=== PATIENT | female | born 1940 | race Caucasian/White ===

== ENCOUNTER 2016-03-08 18:58 | Inpatient (IN) | payer OTHER ==
[2016-03-08] MEDS ORDERED: ACETAMINOPHEN 325 MG TABLET (FP) PO ONE (19:31)
[2016-03-08 19:55] LABS: MCHC 32.1 g/dl (32.0-36.0); MEAN CELL VOLUME 96.7 fl (80-96); MEAN PLT VOLUME 10.5 fl (7.5-11.1); PLATELET COUNT 114 K/MM3 (134-434); RDW 17.7 % (11.6-15.6); WHITE BLOOD COUNT 4.3 K/mm3 (4.0-10.0)
[2016-03-08] MEDS ORDERED: ACETAMINOPHEN 325 MG TABLET (FP) ONE (20:12)
--- NOTE | 2016-03-08 20:17 | PDOC ---
History of Present Illness - General History Source: Patient, Family Exam Limitations: No Limitations - History of Present Illness Initial Comments: 03/08/16 20:44 The patient is a 75 year old female, with a significant past medical history of HTN, who presents to the emergency department with weakness and lethargy for the past 4 days. The patient is visiting from [place] and is staying with her daughter, who is with her currently in the ED. She is not familiar with her daughters apartment and last Saturday (4 days ago), she tripped and fell down 12 stairs. She was taken to ED at [facility] where daughter states she had a full work up done. The patient had CT scans done (which daughter states were negative), had a forehead lac sutured, and was discharged home. For the past 4 days, the patients daughter reports that she is not really eating, seems weak and is more lethargic than her usual baseline. The patient reports dizziness, lightheadedness, and some reproducible midsternal chest pain. The patient additionally reports constant upper extremity pain since her fall. The patient denies fever, chills, headache, SOB, nausea, vomiting, diarrhea or abdominal pain. Allergies: None reported. Past Surgical History: None reported. Social History: Non smoker. <Concepcion Fraser - Last Filed: 03/09/16 00:33> - General History Source: Patient, Family Exam Limitations: No Limitations <Ady Zhao - Last Filed: 03/14/16 10:08> - General Chief Complaint: Nausea/Vomiting Stated Complaint: NAUSEA/VOMITING Time Seen by Provider: 03/08/16 19:19 Past History <Concepcion Fraser - Last Filed: 03/09/16 00:33> - Psycho/Social/Smoking Cessation Hx Anxiety: No Suicidal Ideation: No Smoking History: Never smoked Have you smoked in the past 12 months: No Information on smoking cessation initiated: No Hx Alcohol Use: No Drug/Substance Use Hx: No Substance Use Type: None <Ady Zhao - Last Filed: 03/14/16 10:08> - Past Medical History Allergies/Adverse Reactions: Allergies Allergy/AdvReac Type Severity Reaction Status Date / Time milk AdvReac Verified 03/09/16 16:16 Milk Containing Products AdvReac Verified 03/09/16 16:16 Home Medications: Ambulatory Orders Amlodipine Besylate [Norvasc -] 5 mg PO DAILY 03/09/16 Review of Systems - Review of Systems Able to Perform ROS?: Yes Comments:: 03/08/16 20:47 GENERAL/CONSTITUTIONAL: +Generalized weakness, lethargy, decreased appetite. No fever or chills. HEAD, EYES, EARS, NOSE AND THROAT: No change in vision. No ear pain or discharge. No sore throat. CARDIOVASCULAR: +Lightheadedness, chest pain. No shortness of breath. RESPIRATORY: No cough, wheezing, or hemoptysis. GASTROINTESTINAL: No nausea, vomiting, diarrhea or constipation. GENITOURINARY: No dysuria, frequency, or change in urination. MUSCULOSKELETAL: +Upper extremity pain. No neck or back pain. SKIN: No rash. NEUROLOGIC: +Dizziness. No headache, vertigo, loss of consciousness, or change in strength/sensation. ENDOCRINE: No increased thirst. No abnormal weight change. HEMATOLOGIC/LYMPHATIC: No anemia, easy bleeding, or history of blood clots. ALLERGIC/IMMUNOLOGIC: No hives or skin allergy. <Concepcion Fraser - Last Filed: 03/09/16 00:33> *Physical Exam - Vital Signs Last Vital Signs Temp Pulse Resp BP Pulse Ox 98.2 F 74 20 128/49 88 L 03/08/16 19:05 03/08/16 19:05 03/08/16 19:05 03/08/16 19:05 03/08/16 19:05 - Physical Exam Comments: 03/08/16 20:49 GENERAL: Awake, alert, and fully oriented, in no acute distress. HEAD: 3cm linear forehead laceration sutured and granulated well. No signs of infection. EYES: Bilateral raccoon eyes. PERRLA, EOMI, sclera anicteric, conjunctiva clear. ENT: Auricles normal inspection, hearing grossly normal, nares patent, oropharynx clear without exudates. Moist mucosa. NECK: Normal ROM, supple, no lymphadenopathy, JVD, or masses. LUNGS: Breath sounds equal, clear to auscultation bilaterally. No wheezes, and no crackles. HEART: Regular rate and rhythm, normal S1 and S2, no murmurs, rubs or gallops. ABDOMEN: Soft, nontender, normoactive bowel sounds. No guarding, no rebound. No masses. EXTREMITIES: Normal range of motion, no edema. No clubbing or cyanosis. No cords , erythema, or tenderness. NEUROLOGICAL: Cranial nerves II through XII grossly intact. Normal speech, normal gait. SKIN: Warm, dry, normal turgor, no rashes or lesions noted. <Concepcion Fraser - Last Filed: 03/09/16 00:33> - Vital Signs Last Vital Signs Temp Pulse Resp BP Pulse Ox 98.2 F 74 20 128/49 88 L 03/08/16 19:05 03/08/16 19:05 03/08/16 19:05 03/08/16 19:05 03/08/16 19:05 <Ady Zhao - Last Filed: 03/14/16 10:08> Heart Score/ECG Review #1 ECG reviewed & interpreted by me at: 21:00 03/09/16 00:40 NSR 78, occasional PAC, Q wave V1, no std/veronica, T wvae flat V5-V6, aVL, QTC 433 msec <Ady Zhao - Last Filed: 03/14/16 10:08> ED Treatment Course - LABORATORY CBC & Chemistry Diagram: 03/08/16 19:15 03/08/16 19:15 - ADDITIONAL ORDERS Additional order review: 03/08/16 19:15 RBC 4.44 MCV 96.7 H MCHC 32.1 RDW 17.7 H MPV 10.5 - Medications Given in the ED: ED Medications Discontinued Medications Generic Name Dose Route Start Last Admin Trade Name Freq PRN Reason Stop Dose Admin Acetaminophen 650 mg 03/08/16 19:31 03/08/16 20:23 Tylenol - PO 03/08/16 19:32 650 mg ONCE ONE Administration <Concepcion Fraser - Last Filed: 03/09/16 00:33> - LABORATORY CBC & Chemistry Diagram: 03/14/16 05:00 03/14/16 05:00 - ADDITIONAL ORDERS Additional order review: 03/08/16 19:15 RBC 4.44 MCV 96.7 H MCHC 32.1 RDW 17.7 H MPV 10.5 - RADIOLOGY Radiology Studies Ordered: Category Date Time Status HEAD CT WITHOUT CONTRAST [CT] Stat CT Scan 03/08/16 19:29 Ordered CHEST X-RAY PORTABLE* [RAD] Stat Radiology 03/08/16 19:29 Taken <Ady Zhao - Last Filed: 03/14/16 10:08> Medical Decision Making - Medical Decision Making 03/08/16 23:16 EXAM: CT/HEAD CT WITHOUT CONTRAST Reviewed By: Dr. Star Wills IMPRESSION: No CT evidence of acute intracranial pathology as discussed. Mild to moderate periventricular chronic microvascular ischemic changes. Right frontal scalp hematoma. EXAM: HEAD CT WITHOUT CONTRAST Reviewed By: Dr. Melchor IMPRESSION: No acute intracranial process. <Concepcion Fraser - Last Filed: 03/09/16 00:33> - Medical Decision Making 03/08/16 20:14 A portion of this note was documented by scribe services under my direction. I have reviewed the details of the note, within reason, and agree with the documentation with the following case summary and management plan written by me. Patient treated in the ED. Nursing notes are reviewed and incorporated into the medical decision-making. Vital signs reviewed. Peripheral IV access obtained by the nurse, laboratory studies are drawn and sent, reviewed and interpreted by myself. Vital Signs Temp Pulse Resp BP Pulse Ox 98.2 F 74 20 128/49 88 L 03/08/16 19:05 03/08/16 19:05 03/08/16 19:05 03/08/16 19:05 03/08/16 19:05 75-year-old female with past medical history of hypertension, visiting from [place], accompanied by the patient's daughter, presents to the emergency department for weakness and lethargy. 4 days ago, the patient had a mechanical fall down a flight of stairs. Reportedly had a whitaker CT scan at [facility] where he was negative. Patient that has sutures placed in the forehead and sent home. Since then, patient has been complaining about dizziness, lightheadedness and has been increasingly more lethargic. The patient complains about pain along the right upper extremities which has been constant since her fall. She denies headache, shortness of breath. Does report some reproducible midsternal chest pain. We'll need to rule out delayed intracranial hemorrhage. We'll need to workup this altered mental status with labs to rule out metabolic or infectious etiology. We'll obtain EKG, troponin. Ultimately, given the lethargy, the patient should be admitted to the hospital for further evaluation. 12/16/16 00:37 CBC, BMP 03/08/16 19:15 03/08/16 19:15 CMP Sodium 139 mmol/L (136-145) 03/08/16 19:15 Potassium 4.3 mmol/L (3.5-5.1) 03/08/16 19:15 Chloride 102 mmol/L (98-107) 03/08/16 19:15 Carbon Dioxide 28 mmol/L (21-32) 03/08/16 19:15 Anion Gap 9 (8-16) 03/08/16 19:15 BUN 13 mg/dL (7-18) 03/08/16 19:15 Creatinine 0.5 mg/dL (0.55-1.02) L 03/08/16 19:15 Creat Clearance w eGFR > 60 (>60) 03/08/16 19:15 Random Glucose 158 mg/dL (74-106) H 03/08/16 19:15 Calcium 8.1 mg/dL (8.5-10.1) L 03/08/16 19:15 Total Bilirubin 0.5 mg/dL (0.2-1.0) 03/08/16 19:15 AST 28 U/L (15-37) 03/08/16 19:15 ALT 23 U/L (12-78) 03/08/16 19:15 Alkaline Phosphatase 76 U/L (45-117) 03/08/16 19:15 Creatine Kinase 45 IU/L (26-192) 03/08/16 19:15 Troponin I < 0.02 ng/ml (0.00-0.05) 03/08/16 19:15 B-Natriuretic Peptide 834.34 pg/ml (5-450) H 03/08/16 19:38 Total Protein 6.6 g/dl (6.4-8.2) 03/08/16 19:15 Albumin 3.0 g/dl (3.4-5.0) L 03/08/16 19:15 Urine Test Results Urine Color [place] 03/08/16 21:10 Urine Appearance Clear 03/08/16 21:10 Urine pH 5.0 (5.0-8.0) 03/08/16 21:10 Ur Specific [place] 1.029 (1.001-1.035) 03/08/16 21:10 Urine Protein 1+ (NEGATIVE) H 03/08/16 21:10 Urine Glucose (UA) 1+ (NEGATIVE) H 03/08/16 21:10 Urine Ketones Negative (NEGATIVE) 03/08/16 21:10 Urine Blood Negative (NEGATIVE) 03/08/16 21:10 Urine Nitrite Negative (NEGATIVE) 03/08/16 21:10 Urine Bilirubin Negative (NEGATIVE) 03/08/16 21:10 Ur Leukocyte Esterase Negative (NEGATIVE) 03/08/16 21:10 Urine RBC 1 /hpf (0-3) 03/08/16 21:10 Urine WBC 2 /hpf (3-5) 03/08/16 21:10 Urine Mucus Few 03/08/16 21:10 This may possibly be a concussion especially given a negative head CT. However, incidentally, the patient O2 saturation was 88%. Chest x-ray demonstrates a large cardiomegaly. An BNP is elevated. Could there be elements of congestive heart failure. Clinically, the patient appears with dry mucous membranes especially since she has not been drinking much fluids. We will leave supplemental oxygen but hold off on diuretics at this time until she is a value with an echocardiogram and a cardiology evaluation. Dr. Ruth requests pt to go to [facility]. Case discussed with Dr. Tejeda who accepts the patient to telemetry admission. Will add on ABG to r/o hypercarbic respiratory failure. Case discussed in detail with admitting physician including history, physical exam and ancillary studies. Admitting physician has assumed care for the patient, will follow all pending diagnostics and will complete the evaluation and treatment. <Ady Zhao - Last Filed: 03/14/16 10:08> *DC/Admit/Observation/Transfer - Attestations Scribe Attestion: 03/08/16 20:35 Documentation prepared by Concepcion Fraser, acting as hospital medical biller for Ady Zhao MD. <Concepcion Fraser - Last Filed: 03/09/16 00:33> - Discharge Dispostion Admit: Yes <Ady Zhao - Last Filed: 03/14/16 10:08> Diagnosis at time of Disposition: Hypoxia, Lethargy - Referrals
[2016-03-08 20:28] LABS: ANION GAP 9 (8-16); BILIRUBIN,TOTAL 0.5 mg/dL (0.2-1.0); CALCIUM 8.1 mg/dL (8.5-10.1); CO2 28 mmol/L (21-32); CREATININE 0.5 mg/dL (0.55-1.02); GLUCOSE,RANDOM 158 mg/dL (74-106); SGOT/AST 28 U/L (15-37); SGPT/ALT 23 U/L (12-78); TOT PROT 6.6 g/dl (6.4-8.2)
[2016-03-08 20:31] LABS: ALK PHOS 76 U/L (45-117); TROPONIN I < 0.02 ng/ml (0.00-0.05)
[2016-03-08 21:37] LABS: URINE APPEARANCE CLEAR; URINE BILIRUBIN NEGATIVE (NEGATIVE); URINE BLOOD NEGATIVE (NEGATIVE); URINE COLOR AMBER; URINE GLUCOSE (UA) 1+ (NEGATIVE); URINE KETONE NEGATIVE (NEGATIVE); URINE LEUK ESTERASE NEGATIVE (NEGATIVE); URINE NITRITE NEGATIVE (NEGATIVE); URINE UROBILINOGEN 2.0 E.U/dl E.U./dl (0.2-1.0)
[2016-03-08 21:38] LABS: URINE PROTEIN 1+ (NEGATIVE)
[2016-03-08 21:52] LABS: URINE MUCUS FEW; URINE RBC 1 /hpf (0-3); URINE WBC 2 /hpf (3-5)
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
--- NOTE | 2016-03-09 00:48 | PN ---
<Nimco Borja - Last Filed: 03/09/16 03:24> Teaching Attending Note ATTENDING PHYSICIAN STATEMENT I saw and evaluated the patient. I reviewed the resident's note and discussed the case with the resident. I agree with the resident's findings and plan as documented. SUBJECTIVE: The patient is a 75 year old female, with a significant past medical history of [place] x2 (unknown dates possibly in [place]), and HTN who presents to the emergency department with chest pain, cough and dizziness. The chest pain is associated with cough and is substernal, non radiating. The cough is nonproductive and dry. The patient denies fevers or chills reported at home. Patient is of note s/ p fall on Saturday with full evaluation done at [facility]. As per daughter, patient was found to have bone lesions on scans at [facility] and was advised to follow up as outpatient. Patient refused any follow up at that night. The CT head and KHANNA scan was negative for bleeds or any acute fractures as per patient. Of note patient returned from [place] 10 days ago but reported no LE edema, SOB after flight. OBJECTIVE: Physical GEN: Elderly lady resting in bed NAD. HEENT: Bilateral Periorbtal ecchymosis. Scalp abrasion with dry blood. PEERL, EOMI. Throat without exudates. CARD: RRR, S1 and S2. RESP: CTAB. ABD: Bowel sounds x4, Nontender to palpation. EXT: 5cm x 7cm of ecchymosis on R arm. 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 NEURO: Cranial Nerves 2-12 intact. Alert and oriented x3. Last Vital Signs Temp Pulse Resp BP Pulse Ox 98.2 F 74 20 128/49 88 L 03/08/16 19:05 03/08/16 19:05 03/08/16 19:05 03/08/16 19:05 03/08/16 19:05 EKG- Revealed no acute STT changes. CXR- Cardiomegaly, no effusions, or infiltrate (Dr. Tejeda's read) CBCD WBC 4.3 K/mm3 (4.0-10.0) 03/08/16 19:15 RBC 4.44 M/mm3 (3.60-5.2) 03/08/16 19:15 Hgb 13.8 GM/dL (10.7-15.3) 03/08/16 19:15 Hct 42.9 % (32.4-45.2) 03/08/16 19:15 MCV 96.7 fl (80-96) H 03/08/16 19:15 MCHC 32.1 g/dl (32.0-36.0) 03/08/16 19:15 RDW 17.7 % (11.6-15.6) H 03/08/16 19:15 Plt Count 114 K/MM3 (134-434) L 03/08/16 19:15 MPV 10.5 fl (7.5-11.1) 03/08/16 19:15 CMP Sodium 139 mmol/L (136-145) 03/08/16 19:15 Potassium 4.3 mmol/L (3.5-5.1) 03/08/16 19:15 Chloride 102 mmol/L (98-107) 03/08/16 19:15 Carbon Dioxide 28 mmol/L (21-32) 03/08/16 19:15 Anion Gap 9 (8-16) 03/08/16 19:15 BUN 13 mg/dL (7-18) 03/08/16 19:15 Creatinine 0.5 mg/dL (0.55-1.02) L 03/08/16 19:15 Creat Clearance w eGFR > 60 (>60) 03/08/16 19:15 Calcium 8.1 mg/dL (8.5-10.1) L 03/08/16 19:15 Total Bilirubin 0.5 mg/dL (0.2-1.0) 03/08/16 19:15 AST 28 U/L (15-37) 03/08/16 19:15 ALT 23 U/L (12-78) 03/08/16 19:15 Alkaline Phosphatase 76 U/L (45-117) 03/08/16 19:15 Total Protein 6.6 g/dl (6.4-8.2) 03/08/16 19:15 Albumin 3.0 g/dl (3.4-5.0) L 03/08/16 19:15 Troponin, BNP 03/08/16 03/08/16 19:15 19:38 Troponin I < 0.02 B-Natriuretic Peptide 834.34 H ASSESSMENT AND PLAN: 75 yo F with pmhx of HTN s/p Fall on Saturday, with full workup done at [facility] who presents with lethargy, and weakness, with chest pain. 1.) Lethargy - Ddx: Infection Vs. Trauma vs. Hypoxia - ABG stat - No evidence of infection at this time as evidenced by no fever and normal wbc' s/UA - Ucx 2.) CAD-Chest Pain- Atypical - RO ACS - HEART SCORE 5 - Cardio consult - Trend Trops/EKG - Echo 3.) Hypoxia - ? CHF/phTB - ABG - Fluid restrict - NA restricted diet/Daily weight./I/O - Echo in am - Trend Trops/Ekg - Wells score 0, less likely PE 4.) S/P Fall - CT Head negative - CT orbit done at [facility]- Get records 5.) HTN - Controlled 6.) RLE Mass/Tumor - DDx: Injury Vs. Basal Cell - Onc. Consult 7.) Dvt ppx - Heparin 5000 q8 F: None E: Trend N: Na restricted diet Admit to Med-Tele Documentation prepared by Nimco Borja, acting as certified medical records coder for Blanca Tejeda MD. <Blanca Tejeda - Last Filed: 03/09/16 06:04> Teaching Attending Note Name of Resident: Reyes Henriquez ATTENDING PHYSICIAN STATEMENT I saw and evaluated the patient. I reviewed the resident's note and discussed the case with the resident. I agree with the resident's findings and plan as documented. SUBJECTIVE: OBJECTIVE: Physical: VS: Vital Signs Period Temp Pulse Resp BP Sys/Sanford Pulse Ox Last 24 Hr 98.2 F 74 20 128/49 88 GEN: HEENT: CARD: RESP: ABD: EXT: CXR: Cardiomegaly EKG: CBCD WBC 4.3 K/mm3 (4.0-10.0) 03/08/16 19:15 RBC 4.44 M/mm3 (3.60-5.2) 03/08/16 19:15 Hgb 13.8 GM/dL (10.7-15.3) 03/08/16 19:15 Hct 42.9 % (32.4-45.2) 03/08/16 19:15 MCV 96.7 fl (80-96) H 03/08/16 19:15 MCHC 32.1 g/dl (32.0-36.0) 03/08/16 19:15 RDW 17.7 % (11.6-15.6) H 03/08/16 19:15 Plt Count 114 K/MM3 (134-434) L 03/08/16 19:15 MPV 10.5 fl (7.5-11.1) 03/08/16 19:15 CMP Sodium 139 mmol/L (136-145) 03/08/16 19:15 Potassium 4.3 mmol/L (3.5-5.1) 03/08/16 19:15 Chloride 102 mmol/L (98-107) 03/08/16 19:15 Carbon Dioxide 28 mmol/L (21-32) 03/08/16 19:15 Anion Gap 9 (8-16) 03/08/16 19:15 BUN 13 mg/dL (7-18) 03/08/16 19:15 Creatinine 0.5 mg/dL (0.55-1.02) L 03/08/16 19:15 Creat Clearance w eGFR > 60 (>60) 03/08/16 19:15 Random Glucose 158 mg/dL (74-106) H 03/08/16 19:15 Calcium 8.1 mg/dL (8.5-10.1) L 03/08/16 19:15 Total Bilirubin 0.5 mg/dL (0.2-1.0) 03/08/16 19:15 AST 28 U/L (15-37) 03/08/16 19:15 ALT 23 U/L (12-78) 03/08/16 19:15 Alkaline Phosphatase 76 U/L (45-117) 03/08/16 19:15 Total Protein 6.6 g/dl (6.4-8.2) 03/08/16 19:15 Albumin 3.0 g/dl (3.4-5.0) L 03/08/16 19:15 CARDIAC ENZYMES Creatine Kinase 45 IU/L (26-192) 03/08/16 19:15 Troponin I < 0.02 ng/ml (0.00-0.05) 03/08/16 19:15 ASSESSMENT AND PLAN: 75 yo F with pmhx of HTN s/p Fall on Saturday, with full workup done at [facility] who presents with lethargy, and weakness, with chest pain. 1.) Lethargy - Ddx: Infection Vs. Trauma vs. Hypoxia - ABG stat - No evidence of infection at this time as evidenced by no fever and normal wbc' s/UA - Ucx 2.) CAD-Chest Pain- Atypical - RO ACS - HEART SCORE 5 - Cardio consult - Trend Trops/EKG - Echo 3.) Hypoxia - ? CHF/phTB - ABG - Fluid restrict - NA restricted diet/Daily weight./I/O - Echo in am - Trend Trops/Ekg - Wells score 0, less likely PE - Records from [facility] 4.) S/P Fall - CT Head negative - CT orbit done at [facility]- Get records 5.) HTN - Controlled 6.) RLE Mass/Tumor - DDx: Injury Vs. Basal Cell - Onc. Consult 7.) Dvt ppx - Heparin 5000 q8 F: None E: Trend N: Na restricted diet Admit to [facility]
--- NOTE | 2016-03-09 02:47 | MSN ---
Admitting History and Physical - Admission Chief Complaint: Weakness, lethargy, decreased appetite, vomiting s/p fall History of Present Illness: Pt is a 75yo F with PMHx of HTN, [place] x2, and multiple falls who presents to the ED with weakness, lethargy, dizziness, decreased appetite, and vomiting s/p fall 4 days ago. Pt came from [place] last week (02/26) and is staying with her daughter. Pt's daughter states the pt was not familiar with the apartment layout and fell down a flight of stairs. The fall was unwitnessed but she was helped up immediately and taken to the [facility] ED where CT scans were done (daughter states results were negative), forehead laceration was sutured, and was subsequently discharged home. For the past 4 days, the daughter reports that the pt has had increased weakness and lethargy compared to her baseline status. She has also had decreased appetite and difficulty keeping down her meals. The daughter states that the pt "doesn't eat a lot, but used to eat ok." Patient doesn't have difficulty with swallowing liquids. Dizziness occurs with movement, none at rest. Daughter denies the pt having any LOC, fever, hemoptysis or changes in urination after the fall but states that she has chest pain and back pain. The chest pain is non-radiating and only exacerbated with coughing and inhalation. Daughter states the pt has poor bowel movement but that "it runs in the family." Pt's last BM was today with some difficulty according to the daughter. Daughter is unsure about some of the pt's PMHx but did mention the possibility of cancer "in her bones" as she pointed to the pt's right leg revealing a ~4x4cm circular pearly skin nodule above the ankle; the daughter states that the pt is unaware of her potential diagnosis of cancer. Daughter states that the only medication the pt takes is 1/2 a pill of an unknown blood pressure medication. Daughter also states that the pt has been in contact with family members with flu like symptoms. Pt has been experiencing short term memory lose but this is baseline and chronic, unrelated to the recent fall. History Source: Family Member Limitations to Obtaining History: Language Barrier, Poor Historian - Past Medical History Cardiovascular: Yes: HTN, [place] - Smoking History Smoking history: Never smoked Have you smoked in the past 12 months: No - Alcohol/Substance Use Hx Alcohol Use: No - Social History History of Recent Travel: Yes (Arrived from [place] by flight) Home Medications - Allergies Allergies/Adverse Reactions: Allergies Allergy/AdvReac Type Severity Reaction Status Date / Time No Known Allergies Allergy Verified 03/08/16 19:05 - Home Medications Home Medications: Ambulatory Orders Amlodipine Besylate [Norvasc -] 5 mg PO DAILY 03/09/16 Review of Systems - Review of Systems Constitutional: reports: Lethargy, Loss of Appetite, Weakness Cardiovascular: reports: Chest Pain (See HPI.) Respiratory: reports: Cough Gastrointestinal: reports: Vomiting Neurological: reports: Dizziness Physical Examination Vital Signs: Vital Signs Temperature 98.2 F 03/08/16 19:05 Pulse Rate 74 03/08/16 19:05 Respiratory Rate 20 03/08/16 19:05 Blood Pressure 128/49 03/08/16 19:05 O2 Sat by Pulse Oximetry (%) 88 L 03/08/16 19:05 Constitutional: Yes: Calm, Thin Eyes: Yes: Conjunctiva Clear, EOM Intact HENT: Yes: Normocephalic, Other (Forehead laceration (see HPI), periorbital ecchymosis) Neck: Yes: Trachea Midline Cardiovascular: Yes: Regular Rate and Rhythm Edema: No Peripheral Pulses: Left Doralis Pedis: 1+, Right Dorsalis Pedis: 1+ Integumentary: Yes: Other (4x4cm circular pearly skin nodule located above the right ankle was noted.) Neurological: Yes: Lethargy ...Motor Strength: WNL Assessment/Plan 1. Lethargy - r/o infection, trauma, hypoxia - ABG - Urine culture. 2. Atypical Chest pain - r/o ACS - Consult cardiology - Trops/EKG/Echo 3. Hypoxia - ABG - Fluid resus - Echo 4. S/p fall - CT head negative - Obtain prior records from [facility]. 5. HTN - Controlled 6. RLE Mass/Tumor - r/o BCC - Consult oncology
[2016-03-09 04:06] LABS: ARTERIAL BLD GAS O2 SATURATION 94.1 % (90-98.9); ARTERIAL BLOOD GAS BASE EXCESS 4.9 meq/l (-2-2); ARTERIAL BLOOD GAS HCO3 29.6 meq/L (22-26); ARTERIAL BLOOD GAS PO2 67.7 mmHg (70-100); ARTERIAL BLOOD GAS pH 7.43 (7.35-7.45)
[2016-03-09 04:08] LABS: ALLENS TEST POSITIVE; ART PUNCT SITE RIGHT RADIAL; LPM/O2% 1.5; PT. ON O2? YES; TYPE OF O2 nasal cannula
[2016-03-09 04:26] LABS: TROPONIN I < 0.02 ng/ml (0.00-0.05)
[2016-03-09 05:25] VITALS: BMI 20.2
[2016-03-09] MEDS ORDERED: PNEUMOC 13-VAL CONJ-DIP CRM/PF 0.5 ML DISP.SYRIN IM ONE (05:37)
[2016-03-09] MEDS ORDERED: HEPARIN NA (PORCINE) 5,000 UNITS/ML 1ML VIAL SQ SCH ×2 (06:00→14:00)
[2016-03-09 08:43] LABS: CALCIUM 8.1 mg/dL (8.5-10.1); CREATININE 0.5 mg/dL (0.55-1.02); MAGNESIUM 2.2 mg/dL (1.8-2.4); PHOSPHOROUS 2.8 mg/dL (2.5-4.9)
[2016-03-09 11:09] LABS: TROPONIN I < 0.02 ng/ml (0.00-0.05)
--- NOTE | 2016-03-09 11:17 | PN ---
Progress Note (short form) - Note Progress Note: Subjective: The patient was seen and examined at the bedside, attempt to use VR1 track leader #[id number], however the patient is hard of hearing and is unable to hear the track leader. Echo report with moderate pericardial effusion, diastolic inversion of the right atrial free wall which may indicate early tamponade. LVSF is moderate to severely reduced. Inferior wall appears severely hypokinetic. Left atrium is mildly dilated Call placed to Dr. Kilgore to evaluate pericardial effusion Spoke to Dr. Cunningham. Pulse 80s, BP 130s/70s. Unable to evaluate pulsus paradoxus as the patient is unable to understand Greenlandic and follow commands Will transfer to ICU for closer monitoring Current Medications Generic Name Dose Route Start Last Admin Trade Name Freq PRN Reason Stop Dose Admin Heparin Sodium (Porcine) 5,000 unit 03/09/16 06:00 03/09/16 06:47 Heparin - SQ 5,000 unit TID JUAN Administration Objective: Vital Signs Period Temp Pulse Resp BP Sys/Sanford Pulse Ox Last 24 Hr 97.8 F-98.5 F 74-86 20-20 114-141/40-73 88-94 Physical Exam: General: NAD HEENT: B/l periorbital ecchymosis. Left frontal sutures with dried blood Lungs: B/l rhonchi Heart: RRR, S1S2 Abd: Soft, non-tender, non-distended. Normoactive bowel sounds Ext: RUE ecchymosis. RLE skin lesion CBCD WBC 4.3 K/mm3 (4.0-10.0) 03/08/16 19:15 RBC 4.44 M/mm3 (3.60-5.2) 03/08/16 19:15 Hgb 13.8 GM/dL (10.7-15.3) 03/08/16 19:15 Hct 42.9 % (32.4-45.2) 03/08/16 19:15 MCV 96.7 fl (80-96) H 03/08/16 19:15 MCHC 32.1 g/dl (32.0-36.0) 03/08/16 19:15 RDW 17.7 % (11.6-15.6) H 03/08/16 19:15 Plt Count 114 K/MM3 (134-434) L 03/08/16 19:15 MPV 10.5 fl (7.5-11.1) 03/08/16 19:15 CMP Sodium 139 mmol/L (136-145) 03/09/16 06:30 Potassium 4.2 mmol/L (3.5-5.1) 03/09/16 06:30 Chloride 102 mmol/L (98-107) 03/09/16 06:30 Carbon Dioxide 28 mmol/L (21-32) 03/09/16 06:30 Anion Gap 9 (8-16) 03/09/16 06:30 BUN 13 mg/dL (7-18) 03/09/16 06:30 Creatinine 0.5 mg/dL (0.55-1.02) L 03/09/16 06:30 Creat Clearance w eGFR > 60 (>60) 03/08/16 19:15 Random Glucose 110 mg/dL (74-106) H D 03/09/16 06:30 Calcium 8.1 mg/dL (8.5-10.1) L 03/09/16 06:30 Total Bilirubin 0.5 mg/dL (0.2-1.0) 03/08/16 19:15 AST 28 U/L (15-37) 03/08/16 19:15 ALT 23 U/L (12-78) 03/08/16 19:15 Alkaline Phosphatase 76 U/L (45-117) 03/08/16 19:15 Total Protein 6.6 g/dl (6.4-8.2) 03/08/16 19:15 Albumin 3.0 g/dl (3.4-5.0) L 03/08/16 19:15 CARDIAC ENZYMES Creatine Kinase 30 IU/L (26-192) 03/09/16 10:36 Troponin I < 0.02 ng/ml (0.00-0.05) 03/09/16 10:36 Microbiology 03/08/16 19:15 Nasopharyngeal Swab Influenza Types A,B Antigen (ZEESHAN) - Final 03/08/16 19:15 Nasopharyngeal Swab - Final Assessment: This is a 75 year old female with PMHx of HTN, [place] x2, hx of multiple falls (most recent on 03/05) who presented to the ED with decrease po intake, lethargy, dizziness and was admitted for further evaluation and management of her emergent condition. Plan: 1) Cardiology: Moderate pericardial effusion - As evidence on ECHO with diastolic inversion of the right atrial free wall which may indicate early tamponade - Discussed with cardiology - Placed thoracic surgery consult - Chest X-ray with cardiomegaly - No JVD noted on exam - BPs 130s/70s - HR 80s - Continuous cardiac monitoring - Unable to evaluate for pulsus paradoxus as the patient is hard of hearing, english speaking and not following commands - NPO until evaluation by CT surgery Chest pain - Hx of [place] x2 in the past - Trop x3 negative 2) Pulm: Acute hypoxia - Patient O2 saturation on ventimask around 88%. Will start Bipap - ABG - Given recent flight from [place], will obtain CTAP to r/o PE - Transfer to ICU for closer monitoring 3) Cardiology: Systolic heart failure - Echo reviewed moderate to severe lvef with inferior wall hypokinesis - Will hold off on starting beta oc or marian-i given finding of pericardial effusion - Appreciate cardiology consult 4) MSK: S/p fall 03/05 - Will attempt to receive records from [facility] - According to daughter, everything was negative and she was discharged home 5) Derm: RLE skin lesion - According to daughter, family told patient has bone cancer? But does not want further testing 6) F/E/N: - Monitor electrolytes - NPO for now 7) Prophylaxis: - Hold all chemical anticoagulation given pericardial effusion until evaluation by CT surgery 8) Dispo: - Requires ICU care CODE STATUS: FULL CODE Visit type - Emergency Visit Emergency Visit: Yes ED Registration Date: 03/09/16 Care time: The patient presented to the Emergency Department on the above date and was hospitalized for further evaluation of their emergent condition. - New Patient This patient is new to me today: Yes Date on this admission: 03/09/16 - Critical Care Critical Care patient: Yes Total Critical Care Time (in minutes): 45 Critical Care Statement: The care of this patient involved high complexity decision making to prevent further life threatening deterioration of the patient 's condition and/or to evalute & treat vital organ system(s) failure or risk of failure.
--- NOTE | 2016-03-09 12:13 | CONSULT ---
Cardiology Consult (text) - Consultation Consultation Note: cc: lethargy, weakness for 4 days pt speaks hungarian but using pharmacy grad intern phone was unsuccessful (hard of hearing? , confused?) and no family present and all of the phone numbers left are not correct/working, thus hx from charts (from er when family was present). hpi: 75 f hx htn, here with lethargy, weakness. Pt lives in [place] and here visiting family (just arrived recently). She had trip/fall few days ago and went to [place] and evaluated and sent home (still has facial bruising post fall). She had cp per er notes as well. Found to be hypoxic so started on oxygen and had echo today showing pericardial eff so cardiology eval requested. pmh: per hpi psh: unknown social: no tob fam: unknown ros: unable to obtain meds: Ambulatory Orders Amlodipine Besylate [Norvasc -] 5 mg PO DAILY 03/09/16 pe: Vital Signs Period Temp Pulse Resp BP Sys/Sanford Pulse Ox Last 24 Hr 97.8 F-98.5 F 74-86 20-20 114-141/40-73 88-94 nad no jvd rrr s1s2 no mrg cta bl nl eff awake, alert abd nt nd pos no jaundice, diaphoresis, facial bruising present pos dp pt no carotid bruit no le e/c/c Laboratory Last Values WBC 4.3 K/mm3 (4.0-10.0) 03/08/16 19:15 RBC 4.44 M/mm3 (3.60-5.2) 03/08/16 19:15 Hgb 13.8 GM/dL (10.7-15.3) 03/08/16 19:15 Hct 42.9 % (32.4-45.2) 03/08/16 19:15 MCV 96.7 fl (80-96) H 03/08/16 19:15 MCHC 32.1 g/dl (32.0-36.0) 03/08/16 19:15 RDW 17.7 % (11.6-15.6) H 03/08/16 19:15 Plt Count 114 K/MM3 (134-434) L 03/08/16 19:15 MPV 10.5 fl (7.5-11.1) 03/08/16 19:15 Puncture Site Right radial 03/09/16 04:00 ABG pH 7.43 (7.35-7.45) 03/09/16 04:00 ABG pCO2 at Pt Temp 46.0 mmHg (35-45) H 03/09/16 04:00 ABG pO2 at Pt Temp 67.7 mmHg (70-100) L 03/09/16 04:00 ABG HCO3 29.6 meq/L (22-26) H 03/09/16 04:00 ABG O2 Sat (Measured) 94.1 % (90-98.9) 03/09/16 04:00 ABG O2 Content 17.3 % vol (15-22) 03/09/16 04:00 ABG Base Excess 4.9 meq/l (-2-2) H 03/09/16 04:00 Obdulio Test Positive 03/09/16 04:00 O2 Delivery Device nasal cannula 03/09/16 04:00 Oxygen Flow Rate 1.5 03/09/16 04:00 PEEP 0.0 cmH2O 03/09/16 04:00 Sodium 139 mmol/L (136-145) 03/09/16 06:30 Potassium 4.2 mmol/L (3.5-5.1) 03/09/16 06:30 Chloride 102 mmol/L (98-107) 03/09/16 06:30 Carbon Dioxide 28 mmol/L (21-32) 03/09/16 06:30 Anion Gap 9 (8-16) 03/09/16 06:30 BUN 13 mg/dL (7-18) 03/09/16 06:30 Creatinine 0.5 mg/dL (0.55-1.02) L 03/09/16 06:30 Creat Clearance w eGFR > 60 (>60) 03/08/16 19:15 Random Glucose 110 mg/dL (74-106) H D 03/09/16 06:30 Hemoglobin A1c % 5.8 % (4.8-6.0) 03/09/16 06:30 Calcium 8.1 mg/dL (8.5-10.1) L 03/09/16 06:30 Phosphorus 2.8 mg/dL (2.5-4.9) 03/09/16 06:30 Magnesium 2.2 mg/dL (1.8-2.4) 03/09/16 06:30 Total Bilirubin 0.5 mg/dL (0.2-1.0) 03/08/16 19:15 AST 28 U/L (15-37) 03/08/16 19:15 ALT 23 U/L (12-78) 03/08/16 19:15 Alkaline Phosphatase 76 U/L (45-117) 03/08/16 19:15 Creatine Kinase 30 IU/L (26-192) 03/09/16 10:36 Troponin I < 0.02 ng/ml (0.00-0.05) 03/09/16 10:36 B-Natriuretic Peptide 834.34 pg/ml (5-450) H 03/08/16 19:38 Total Protein 6.6 g/dl (6.4-8.2) 03/08/16 19:15 Albumin 3.0 g/dl (3.4-5.0) L 03/08/16 19:15 Vitamin B12 253 pg/ml (180-914) 03/09/16 06:30 Urine Color [place] 03/08/16 21:10 Urine Appearance Clear 03/08/16 21:10 Urine pH 5.0 (5.0-8.0) 03/08/16 21:10 Ur Specific Sterling 1.029 (1.001-1.035) 03/08/16 21:10 Urine Protein 1+ (NEGATIVE) H 03/08/16 21:10 Urine Glucose (UA) 1+ (NEGATIVE) H 03/08/16 21:10 Urine Ketones Negative (NEGATIVE) 03/08/16 21:10 Urine Blood Negative (NEGATIVE) 03/08/16 21:10 Urine Nitrite Negative (NEGATIVE) 03/08/16 21:10 Urine Bilirubin Negative (NEGATIVE) 03/08/16 21:10 Urine Urobilinogen 2.0 e.u/dl E.U./dl (0.2-1.0) H 03/08/16 21:10 Ur Leukocyte Esterase Negative (NEGATIVE) 03/08/16 21:10 Urine RBC 1 /hpf (0-3) 03/08/16 21:10 Urine WBC 2 /hpf (3-5) 03/08/16 21:10 Urine Mucus Few 03/08/16 21:10 ecg 03/08/16: sr, pac, nl intervals, no ischemic changes cxr: clear lungs echo 03/09/16/: mod-sev dec lvef, inf wall hk, nl rv, mild lae, mild mr/tr, moderate pericardial eff, ?impending tamponade based on ra wall collapse est cct 35 mins a/p: 75 f hx htn, here with lethargy, weakness. pericardial effusion: -reviewed echo, there is a moderate circumferential pericardial eff present but no signs of tamponade. clinically no signs of tamponade as well. -bp and hr stable now, wnl -it does not appear that this effusion is currently causing any hemodynamic compromise but would monitor in icu for now -CTS consulted in case her clinical condition changes -if bp becomes low can give ivfs -plan for repeat echo saturday to monitor effusion syst chf: -echo here shows mod-sev decreased lvef with inferior hypokinesis -no prior echo to compare and unclear if she has hx of cad or chf -clinically no chf -no signs acs, ce's negx3, ecg w/o ischemic changes or significant q waves -would not start bb or marian-i for chf regimen yet given pericardial effusion -further ischemic workup pending resolution of acute issues hypoxia: -no signs chf or acs as above -cxr w/o infiltrate -satting 85% with ventimask -will get abg, she may need bipap -given her recent flight from [place] (and recent fall, so possibly immobile lately) and hypoxia with clear cxr would r/o significant PE with cta chest -icu/pulm eval lethargy/weakness: -head ct w/o acute findings -possibly related to hypoxia -cont w/u as detailed above htn: -bp stable here, hold home norvasc given pericardial eff to avoid hypotension
[2016-03-09 12:17] LABS: ARTERIAL BLD GAS O2 SATURATION 95.1 % (90-98.9); ARTERIAL BLOOD GAS BASE EXCESS 4.2 meq/l (-2-2); ARTERIAL BLOOD GAS HCO3 28.4 meq/L (22-26); ARTERIAL BLOOD GAS PO2 72.9 mmHg (70-100); ARTERIAL BLOOD GAS pH 7.44 (7.35-7.45)
[2016-03-09 12:18] LABS: ALLENS TEST POSITIVE; ART PUNCT SITE LEFT RADIAL; LPM/O2% 40%; PT. ON O2? YES; TYPE OF O2 VENTIMASK
--- NOTE | 2016-03-09 14:09 | CONSULT ---
Consult Consult Specialty:: ICU Referred by:: Isabel Reason for Consultation:: Pericardial effusion - History of Present Illness Chief Complaint: pericardial effusion on Echo and CT History of Present Illness: 75F with PMH of HTN and NM x 2 presented to [facility] a few days ago s/ p fall had a head Laceration had a CT done which was negative and discharge after being stapled. Daughter states they came back recently from [place] 10 days ago but they are belarusian. for ther past couple days trhe daughter states her mom the patient has been having lethargy nausea vomiting poor oral intake and weakness. She also states she has had chest pain. denies shortness of breath. patient noted to be hypoxic. Patient found to have systolic CHF on Echo with pericardial effusion. CTA chest done ehich ruled out PE and patient has pericardial effusion on CT. Patient transferred to ICU for further closer monitoring. Patient's daughter states her whole family including the patient ereutned from [place] and had an upper respiratory infection. - History Source History Provided By: Family Member, Medical Record Limitations to Obtaining History: Language Barrier (belarusian and hard of hearing. 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 (year[place] 2015 History of Recent Travel: Yes (Arrived from [place] by flight) Home Medications - Allergies Allergies/Adverse Reactions: Allergies Allergy/AdvReac Type Severity Reaction Status Date / Time milk AdvReac Verified 03/09/16 16:16 Milk Containing Products AdvReac Verified 03/09/16 16:16 - Home Medications Home Medications: Ambulatory Orders Amlodipine Besylate [Norvasc -] 5 mg PO DAILY 03/09/16 Family Disease History - Family Disease History Family History: Unable to Obtain Review of Systems Unable to obtain ROS, reason: language barrier Findings/Remarks: ROS per daughter - Review of Systems Constitutional: reports: Lethargy, Loss of Appetite Eyes: reports: No Symptoms HENT: reports: No Symptoms Neck: reports: No Symptoms Cardiovascular: reports: Chest Pain Respiratory: reports: No Symptoms Gastrointestinal: reports: Nausea, Vomiting Genitourinary: reports: No Symptoms Breasts: reports: No Symptoms Reported Musculoskeletal: reports: No Symptoms Integumentary: reports: Other (large cauliflower like red/flesh colored growth over right singh) Neurological: reports: Dizziness Endocrine: reports: No Symptoms Hematology/Lymphatic: reports: No Symptoms Psychiatric: reports: No Symptoms Physical Exam Vital Signs: Vital Signs Temperature 97.8 F 03/09/16 10:10 Pulse Rate 84 03/09/16 10:10 Respiratory Rate 20 03/09/16 10:10 Blood Pressure 131/70 03/09/16 10:10 O2 Sat by Pulse Oximetry (%) 94 L 03/09/16 11:34 Constitutional: Yes: Well Nourished, No Distress, Calm, Thin Eyes: Yes: Other (bilateral contusion of eyes) Neck: Yes: Trachea Midline Cardiovascular: Yes: Regular Rate and Rhythm, Other (no chest wall tenderness increased cheat pain with movement) Respiratory: Yes: CTA Bilaterally Gastrointestinal: Yes: WNL, Normal Bowel Sounds, Soft Extremities: Yes: WNL Edema: No Integumentary: Yes: Other (large cauliflower fleshy/red like growth of right singh) Neurological: Yes: Alert, Oriented, Cran Nerves II-XII Intact ...Motor Strength: WNL Labs: CBC, BMP 03/09/16 06:30 Imaging - Results Chest X-ray: Report Reviewed, Image Reviewed Cat Scan: Report Reviewed, Image Reviewed Other: Report Reviewed (Echo) Assessment/Plan 75F with HTN admitted with nausea vomiting weakness and anorexia found to have a pericardial effusion on echo and CT scan transferred to ICU for further monitoring. Pericardial effusion:hemodynamically stable: possible effusion could be from recent viral infection no clinical evidence of pericardial effusion BP stable No JVD no muffled heart sounds CTA chest negative for PE CT surgery consult pending Nephrology consult for diuresis appreciated will hold off at this time hold norvasc per cardiology fluid bolus PRN hypotension [facility] contacted for imaging studies will fax release signed no beta blockers no diuresis (lasix) systolic CHF: newly diagnosed on echo mod-severe decreased LEVF, inferior wall hypokinesis, normal right ventricular function, mild eft atrial enlargement, mild mitral regurg/tricuspid regurg, moderate pericardial effusion, possible impending tamponade based on right atrial wall collapse Cardiology consult appreciated will hold off on diuresis Hypoxia: Patient saturating well in ICU on 50% venti mask BiPap PRN CTA chest negative for PE HTN: Controlled for now hold norvasc per cardiology for now mechanical fall: no issues at this time repeat head CT stable Skin lesion: likely some kind of benign or malignant growth will need outpt follow up with surgery/dermatology Protenuria: Nephrology consult appreciated repeat labs per nephrology FEN: no fluids indicated no electrolyte abnormalities npo for now PPx: HSQ SCD No Gi PPx indicated PT consult Patient seen and case discussed with Dr. Ospina
--- NOTE | 2016-03-09 15:24 | EKG ---
Test Reason : Blood Pressure : / mmHG Vent. Rate : 078 BPM Atrial Rate : 078 BPM P-R Int : 150 ms QRS Dur : 088 ms QT Int : 380 ms P-R-T Axes : 040 050 060 degrees QTc Int : 433 ms SINUS RHYTHM WITH PREMATURE ATRIAL COMPLEXES POSSIBLE ANTERIOR INFARCT , AGE UNDETERMINED ABNORMAL ECG NO PREVIOUS ECGS AVAILABLE Confirmed by KALANI JACKSON MD ([id number]) on 03/09/2016 3:24:13 PM Referred By: Overread By: KALANI JACKSON MD
--- NOTE | 2016-03-09 15:27 | CONSULT ---
Consult Consult Specialty:: Nephrology Reason for Consultation:: proteinuria, fluid overload - History of Present Illness Chief Complaint: I sent her in for weakness and lethargy History of Present Illness: Pt is a 75 year old female with history of recent fall and trauma to the head. I sent pt to er a few days ago after her fall where she received stitches. She had a ct of the head that was negative. She was discharged from the ER at [facility]. I received a phone call last night from her daughter say that pt has been very weak and has increased lethargy. I sent her back to the ER. The pt was found to be hypoxic. On further evaluation she was found to have a pericardial effusion. She was found to have proteinuria on UA. I called and discussed the findings with her daughter and grand-daughter. - History Source History Provided By: Family Member, Medical Record - Past Medical History Cardio/Vascular: Yes: HTN, [place] ...: No Heme/Onc: Yes: Other (skin cancer) - Past Surgical History Past Surgical History: Yes: None (unknown patient does not understand lao ) - Alcohol/Substance Use Hx Alcohol Use: No - Smoking History Smoking history: Never smoked Have you smoked in the past 12 months: No Aproximately how many cigarettes per day: 0 - Social History Usual Living Arrangement: With Child ADL: Family Assistance History of Recent Travel: Yes (Arrived from [place] by flight) Home Medications - Allergies Allergies/Adverse Reactions: Allergies Allergy/AdvReac Type Severity Reaction Status Date / Time soy milk Allergy Mild Nausea Uncoded 03/09/16 13:11 - Home Medications Home Medications: Ambulatory Orders Amlodipine Besylate [Norvasc -] 5 mg PO DAILY 03/09/16 Family Disease History - Family Disease History Family History: Denies Review of Systems - Review of Systems Constitutional: reports: Malaise. denies: Chills, Fever Cardiovascular: reports: Edema Respiratory: reports: SOB on Exertion Gastrointestinal: reports: No Symptoms Genitourinary: reports: No Symptoms Musculoskeletal: reports: Joint Swelling, Muscle Weakness Integumentary: reports: Bruising Neurological: reports: Weakness Endocrine: reports: No Symptoms Hematology/Lymphatic: reports: No Symptoms Psychiatric: reports: No Symptoms Physical Exam Vital Signs: Vital Signs Temperature 98.8 F 03/09/16 14:00 Pulse Rate 98 H 03/09/16 14:00 Respiratory Rate 25 H 03/09/16 14:30 Blood Pressure 143/62 03/09/16 14:00 O2 Sat by Pulse Oximetry (%) 94 L 03/09/16 14:30 Constitutional: Yes: Calm HENT: Yes: Other Neck: Yes: Supple Cardiovascular: Yes: S1, S2 Respiratory: Yes: On Venti-Mask Gastrointestinal: Yes: Soft Renal/: Yes: WNL Musculoskeletal: Yes: Muscle Weakness Neurological: Yes: Oriented Labs: CBC, BMP 03/09/16 06:30 Laboratory Tests 03/08/16 03/08/16 03/08/16 19:15 19:38 21:10 WBC 4.3 Hgb 13.8 Plt Count 114 L ABG pH ABG pCO2 at Pt Temp ABG pO2 at Pt Temp ABG HCO3 ABG O2 Sat (Measured) ABG O2 Content Sodium Potassium Carbon Dioxide Anion Gap BUN Creatinine Hemoglobin A1c % Calcium Troponin I B-Natriuretic Peptide 834.34 H Urine Color [place] Urine Appearance Clear Urine pH 5.0 Ur Specific [place] 1.029 Urine Protein 1+ H Urine Glucose (UA) 1+ H Urine Ketones Negative Urine Blood Negative Urine Nitrite Negative Urine Bilirubin Negative 03/09/16 03/09/16 03/09/16 03:23 04:00 06:30 WBC Hgb Plt Count ABG pH 7.43 ABG pCO2 at Pt Temp 46.0 H ABG pO2 at Pt Temp 67.7 L ABG HCO3 29.6 H ABG O2 Sat (Measured) 94.1 ABG O2 Content 17.3 Sodium 139 Potassium 4.2 Carbon Dioxide 28 Anion Gap 9 BUN 13 Creatinine 0.5 L Hemoglobin A1c % Calcium 8.1 L Troponin I < 0.02 B-Natriuretic Peptide Urine Color Urine Appearance Urine pH Ur Specific Voss Urine Protein Urine Glucose (UA) Urine Ketones Urine Blood Urine Nitrite Urine Bilirubin 03/09/16 03/09/16 03/09/16 06:30 10:36 12:15 WBC Hgb Plt Count ABG pH 7.44 ABG pCO2 at Pt Temp 42.5 ABG pO2 at Pt Temp 72.9 ABG HCO3 28.4 H ABG O2 Sat (Measured) 95.1 ABG O2 Content 17.7 Sodium Potassium Carbon Dioxide Anion Gap BUN Creatinine Hemoglobin A1c % 5.8 Calcium Troponin I < 0.02 B-Natriuretic Peptide Urine Color Urine Appearance Urine pH Ur Specific Voss Urine Protein Urine Glucose (UA) Urine Ketones Urine Blood Urine Nitrite Urine Bilirubin Imaging - Results Cat Scan: Report Reviewed (ct head negative. ct chest neg PE, there is a pericardial effusion) Problem List - Problems (1) Hypoxia Code(s): R09.02 - HYPOXEMIA (2) Lethargy Code(s): R53.83 - OTHER FATIGUE (3) Pericardial effusion Code(s): I31.3 - PERICARDIAL EFFUSION (NONINFLAMMATORY) (4) Proteinuria Code(s): R80.9 - PROTEINURIA, UNSPECIFIED (5) Hypertension Code(s): I10 - ESSENTIAL (PRIMARY) HYPERTENSION (6) Skin cancer Code(s): C44.90 - UNSPECIFIED MALIGNANT NEOPLASM OF SKIN, UNSPECIFIED Assessment/Plan Current Medications Generic Name Dose Route Start Last Admin Trade Name Freq PRN Reason Stop Dose Admin Heparin Sodium (Porcine) 5,000 unit 03/09/16 14:00 Heparin - SQ TID JUAN Impression 1. pericardial effusion 2. hypoxia 3. proteinuria 4. HTN 5. skin cancer 6. congestion on cxr 7. s/p fall and laceration to head Plan - CT surgery eval for effusion - ct scan of chest reviewed - discussed with hospitalist - called and discussed plan with pts daughter and grad-daughter - consent for contrast obtained over the phone - repeat labs in am - transfer and monitor in ICU - will follow Dr Ruth
--- NOTE | 2016-03-09 16:22 | PN ---
Teaching Attending Note Name of Resident: Dajuan Gerber ATTENDING PHYSICIAN STATEMENT I saw and evaluated the patient. I reviewed the resident's note and discussed the case with the resident. I agree with the resident's findings and plan as documented. SUBJECTIVE: Patient seen and examined in the ICU. Awake and alert. Anterior chest discomfort that may be slightly better with sitting up. (+) dizziness. SOB is better on O2. OBJECTIVE: Intake & Output 03/06/16 03/07/16 03/08/16 03/09/16 23:59 23:59 23:59 23:59 Output Total 400 Balance -400 Weight 160 lb 114 lb 4 oz Last Vital Signs Temp Pulse Resp BP Pulse Ox 98.8 F 109 H 25 H 143/62 94 L 03/09/16 14:00 03/09/16 15:30 03/09/16 14:30 03/09/16 14:00 03/09/16 15:30 Active Medications Heparin Sodium (Porcine) (Heparin -) 5,000 unit SQ TID JUAN Constitutional: Yes: Awake and alert Eyes: Yes: Other (bilateral contusion of eyes) Neck: Yes: Trachea Midline Cardiovascular: Yes: Regular Rate and Rhythm Respiratory: Yes: Scattered rhonchi y Gastrointestinal: Yes: WNL, Normal Bowel Sounds, Soft Extremities: Yes: WNL Edema: No Integumentary: Yes: (+) lesion right singh) Neurological: Yes: Non-focal ...Motor Strength: WNL Labs: Laboratory Results - last 24 hr 03/08/16 03/08/16 03/08/16 19:15 19:15 19:38 WBC 4.3 RBC 4.44 Hgb 13.8 Hct 42.9 MCV 96.7 H MCHC 32.1 RDW 17.7 H Plt Count 114 L MPV 10.5 Puncture Site ABG pH ABG pCO2 at Pt Temp ABG pO2 at Pt Temp ABG HCO3 ABG O2 Sat (Measured) ABG O2 Content ABG Base Excess Obdulio Test O2 Delivery Device Oxygen Flow Rate PEEP Sodium 139 Potassium 4.3 Chloride 102 Carbon Dioxide 28 Anion Gap 9 BUN 13 Creatinine 0.5 L Creat Clearance w eGFR > 60 Random Glucose 158 H Hemoglobin A1c % Calcium 8.1 L Phosphorus Magnesium Total Bilirubin 0.5 AST 28 ALT 23 Alkaline Phosphatase 76 Creatine Kinase 45 Troponin I < 0.02 B-Natriuretic Peptide 834.34 H Total Protein 6.6 Albumin 3.0 L Vitamin B12 Urine Color Urine Appearance Urine pH Ur Specific [place] Urine Protein Urine Glucose (UA) Urine Ketones Urine Blood Urine Nitrite Urine Bilirubin Urine Urobilinogen Ur Leukocyte Esterase Urine RBC Urine WBC Urine Mucus 03/08/16 03/09/16 03/09/16 21:10 03:23 04:00 WBC RBC Hgb Hct MCV MCHC RDW Plt Count MPV Puncture Site Right radial ABG pH 7.43 ABG pCO2 at Pt Temp 46.0 H ABG pO2 at Pt Temp 67.7 L ABG HCO3 29.6 H ABG O2 Sat (Measured) 94.1 ABG O2 Content 17.3 ABG Base Excess 4.9 H Obdulio Test Positive O2 Delivery Device nasal cannula Oxygen Flow Rate 1.5 PEEP 0.0 Sodium Potassium Chloride Carbon Dioxide Anion Gap BUN Creatinine Creat Clearance w eGFR Random Glucose Hemoglobin A1c % Calcium Phosphorus Magnesium Total Bilirubin AST ALT Alkaline Phosphatase Creatine Kinase 37 Troponin I < 0.02 B-Natriuretic Peptide Total Protein Albumin Vitamin B12 Urine Color [place] Urine Appearance Clear Urine pH 5.0 Ur Specific [place] 1.029 Urine Protein 1+ H Urine Glucose (UA) 1+ H Urine Ketones Negative Urine Blood Negative Urine Nitrite Negative Urine Bilirubin Negative Urine Urobilinogen 2.0 e.u/dl H Ur Leukocyte Esterase Negative Urine RBC 1 Urine WBC 2 Urine Mucus Few 03/09/16 03/09/16 03/09/16 06:30 06:30 06:30 WBC RBC Hgb Hct MCV MCHC RDW Plt Count MPV Puncture Site ABG pH ABG pCO2 at Pt Temp ABG pO2 at Pt Temp ABG HCO3 ABG O2 Sat (Measured) ABG O2 Content ABG Base Excess Obdulio Test O2 Delivery Device Oxygen Flow Rate PEEP Sodium 139 Potassium 4.2 Chloride 102 Carbon Dioxide 28 Anion Gap 9 BUN 13 Creatinine 0.5 L Creat Clearance w eGFR Random Glucose 110 H D Hemoglobin A1c % 5.8 Calcium 8.1 L Phosphorus 2.8 Magnesium 2.2 Total Bilirubin AST ALT Alkaline Phosphatase Creatine Kinase Troponin I B-Natriuretic Peptide Total Protein Albumin Vitamin B12 253 Urine Color Urine Appearance Urine pH Ur Specific [place] Urine Protein Urine Glucose (UA) Urine Ketones Urine Blood Urine Nitrite Urine Bilirubin Urine Urobilinogen Ur Leukocyte Esterase Urine RBC Urine WBC Urine Mucus 03/09/16 03/09/16 10:36 12:15 WBC RBC Hgb Hct MCV MCHC RDW Plt Count MPV Puncture Site Left radial ABG pH 7.44 ABG pCO2 at Pt Temp 42.5 ABG pO2 at Pt Temp 72.9 ABG HCO3 28.4 H ABG O2 Sat (Measured) 95.1 ABG O2 Content 17.7 ABG Base Excess 4.2 H Obdulio Test Positive O2 Delivery Device Ventimask Oxygen Flow Rate 40% PEEP 0.0 Sodium Potassium Chloride Carbon Dioxide Anion Gap BUN Creatinine Creat Clearance w eGFR Random Glucose Hemoglobin A1c % Calcium Phosphorus Magnesium Total Bilirubin AST ALT Alkaline Phosphatase Creatine Kinase 30 Troponin I < 0.02 B-Natriuretic Peptide Total Protein Albumin Vitamin B12 Urine Color Urine Appearance Urine pH Ur Specific [place] Urine Protein Urine Glucose (UA) Urine Ketones Urine Blood Urine Nitrite Urine Bilirubin Urine Urobilinogen Ur Leukocyte Esterase Urine RBC Urine WBC Urine Mucus Assessment/Plan Pericardial effusion: at present hemodynamically stable (?) Viral Syndrome CHF by history HTN S/P Mechanical Fall Skin lesion Above history NO Lasix O2 as needed Hold Anti-HTN Strict I&O CTS evaluation has been called Hold AC for now ICU monitoring Dr Ospina CCTime 35"
--- NOTE | 2016-03-09 17:46 | CONSULT ---
Consult - text type - Consultation Consultation Note: Thoracic Surgery Consultation: Pt seen and examined. History taken in Greenlandic from family members as patient speaks Gu[place]ian. Briefly, she arrived in [place] ago and developed a cough as other members of her family had this. She also suffered from weakness. While in her family's home, she fell and suffered facial bruising. This was worked up at [facility]. Of note, had multiple lytic lesions in skull and c-spine concerning for metastatic disease or myeloma. After admission here, had CT scan and echo showing moderate effusion but was not in tamponade. PE: HD stable, borderline tachycardia, 90-105, hypoxic Chest: decreased bs b/l Abd: NT, ND EXT: suspicious lesion Imp/Plan: Suspect viral or bacterial pneumonia/pneumonitis, possible adi/ pericarditis -Place mcconnell and monitor u/o -No diuretics -Needs malignancy w/u -Would repeat echo -May need window if sx worsen. Spent 1 hour on consultation. Reviewed films, labs, PE, and discussed with Dr. Ospina, Dr. Cunningham, Dr. Francois, GUSSET STITCHER Sgroe, and resident, Dr. Mcknight.
[2016-03-09 20:24] LABS: MCH 30.8 pg (25.7-33.7); MCHC 32.1 g/dl (32.0-36.0); MEAN PLT VOLUME 9.9 fl (7.5-11.1); PLATELET COUNT 120 K/MM3 (134-434); RDW 17.5 % (11.6-15.6); WHITE BLOOD COUNT 7.8 K/mm3 (4.0-10.0)
[2016-03-09 20:48] LABS: ANISOCYTOSIS 1+; HYPOCHROMIA 1+; PLATELET ESTIMATE SLT DECREASED (NORMAL); POLYCHROMASIA 1+
[2016-03-10 06:17] LABS: BASOPHIL 0.2 % (0-2.0); EOSINOPHIL 0.3 % (0-4.5); MCH 30.9 pg (25.7-33.7); MCHC 32.1 g/dl (32.0-36.0); MEAN CELL VOLUME 96.3 fl (80-96); MEAN PLT VOLUME 10.3 fl (7.5-11.1); NEUTROPHILS 74.2 % (42.8-82.8); PLATELET COUNT 129 K/MM3 (134-434); RDW 17.7 % (11.6-15.6); WHITE BLOOD COUNT 5.7 K/mm3 (4.0-10.0)
[2016-03-10 06:33] LABS: INR 1.18 (0.82-1.09)
[2016-03-10 06:36] LABS: ACTIVATED PTT 28.6 SECONDS (26.9-34.4)
[2016-03-10 06:38] LABS: ALK PHOS 75 U/L (45-117); ANION GAP 12 (8-16); CALCIUM 8.4 mg/dL (8.5-10.1); CO2 29 mmol/L (21-32); CREATININE 0.5 mg/dL (0.55-1.02); GLUCOSE,RANDOM 95 mg/dL (74-106); MAGNESIUM 2.1 mg/dL (1.8-2.4); PHOSPHOROUS 3.5 mg/dL (2.5-4.9); SGOT/AST 25 U/L (15-37); SGPT/ALT 24 U/L (12-78); TOT PROT 6.6 g/dl (6.4-8.2)
--- NOTE | 2016-03-10 11:07 | PN ---
Progress Note, Physician History of Present Illness: Renal f/u Pt has been NPO and c/o feeling thirsty as per dtr who is the operations inspector since pt primarily speaks Luxembourgish Seen by cartdiology and thoracic surgery and the pericardial effusion was not felt to be hemodynamically significant at this time Given a recent viral illness pt felt that the pericardial effusion is related to a viral syndrome - Objective Vital Signs: Vital Signs Temperature 97.9 F 03/10/16 10:00 Pulse Rate 89 03/10/16 10:00 Respiratory Rate 22 03/10/16 10:00 Blood Pressure 112/68 03/10/16 10:00 O2 Sat by Pulse Oximetry (%) 95 03/10/16 08:48 Constitutional: Yes: No Distress Eyes: Yes: Other (Periorbital ecchymoses as well as ecchymoses of the arm.) HENT: Yes: Other (Dry oral mucosa) Cardiovascular: Yes: Pulse Irregular, S1, S2, Other (Occasional PVC on the monitor). No: JVD Respiratory: Yes: CTA Bilaterally Gastrointestinal: Yes: Soft. No: Tenderness Extremities: Yes: Other (No ankle edema and a large growth over the left ankle region) Labs: CBC, BMP 03/10/16 05:20 03/10/16 05:20 INR, PTT INR 1.18 (0.82-1.09) H 03/10/16 05:20 - ....Imaging Chest X-ray: Report Reviewed, Image Reviewed Assessment/Plan Impression Pericardial effusion in pt with recent viral syndrome Hypoxia with recent URI on VM HFrEF based on echo result reported in the nhowever Proteinuria HTN Skin cancer S/p fall and laceration and head trauma Plan Since pt is NPO will give maintenance IVF D5 1/3 NS at 42 cc/hr Urine for Protein/Cr ratio Rpt labs in am Discussed with Hospitalist Dr Kelly
[2016-03-10] MEDS: DEXTROSE 5%-1/3 NS - 500 ML IV SCH (11:30)
--- NOTE | 2016-03-10 14:28 | PN ---
Progress Note (short form) - Note Progress Note: PULM/CCM Progress Note Patient Name: DANETTE NUÑEZ Date of : 1940 Patient Status: Inpatient Attending Provider: Lyn Hall Patient seen and examined in the ICU. Awake and alert. No significant change in anterior chest discomfort. CXR: Cardiomegaly and some improvement in bilateral vascular markings. OBJECTIVE: Intake & Output 03/07/16 03/08/16 03/09/16 03/10/16 23:59 23:59 23:59 23:59 Output Total 1050 200 Balance -1050 -200 Weight 160 lb 114 lb 4 oz 110 lb Last Vital Signs Temp Pulse Resp BP Pulse Ox 97.9 F 96 H 22 112/68 90 L 03/10/16 10:00 03/10/16 11:50 03/10/16 10:00 03/10/16 10:00 03/10/16 11:50 Active Medications Dextrose/Sodium Chloride (D5-1/3ns -) 500 mls @ 42 mls/hr IV ASDIR JUAN Constitutional: Yes: Awake and alert Eyes: Yes: Other (bilateral contusion of eyes) Neck: Yes: Trachea Midline Cardiovascular: Yes: Regular Rate and Rhythm Respiratory: Yes: Scattered rhonchi y Gastrointestinal: Yes: WNL, Normal Bowel Sounds, Soft Extremities: Yes: WNL Edema: No Integumentary: Yes: (+) lesion right singh) Neurological: Yes: Non-focal ...Motor Strength: WNL Labs: Assessment/Plan Pericardial effusion: -> I suspect Viral Pericarditis Suspected Viral Syndrome CHF by history HTN S/P Mechanical Fall Skin lesion Colchicine BID Indocin TID PO as tolerated NO Lasix O2 as needed Hold Anti-HTN Strict I&O Dr Ospina CCTime 35"
--- NOTE | 2016-03-10 14:41 | PN ---
Progress Note (short form) - Note Progress Note: Subjective: The patient was seen and examined at the bedside, she reports feeling better today, denies any chest pain BP stable HR controlled Started on IVF per nephrology Current Medications Generic Name Dose Route Start Last Admin Trade Name Leo PRN Reason Stop Dose Admin Dextrose/Sodium Chloride 500 mls @ 42 mls/hr 03/10/16 11:30 D5-1/3ns - IV ASDIR JUAN Objective: Vital Signs Period Temp Pulse Resp BP Sys/Sanford Pulse Ox Last 24 Hr 97.7 F-98.5 F 76-109 20-30 108-152/42-84 90-96 Physical Exam: General: NAD HEENT: B/l periorbital ecchymosis. Left forehead sutures with dried blood. No JVD Lungs: B/l scattered rhonchi Heart: RRR, S1S2 Abd: Soft, non-tender, non-distended. Normoactive bowel sounds Ext: RUE ecchymosis. RLE skin lesion CBCD WBC 5.7 K/mm3 (4.0-10.0) 03/10/16 05:20 RBC 4.24 M/mm3 (3.60-5.2) 03/10/16 05:20 Hgb 13.1 GM/dL (10.7-15.3) 03/10/16 05:20 Hct 40.8 % (32.4-45.2) 03/10/16 05:20 MCV 96.3 fl (80-96) H 03/10/16 05:20 MCHC 32.1 g/dl (32.0-36.0) 03/10/16 05:20 RDW 17.7 % (11.6-15.6) H 03/10/16 05:20 Plt Count 129 K/MM3 (134-434) L 03/10/16 05:20 MPV 10.3 fl (7.5-11.1) 03/10/16 05:20 CMP Sodium 141 mmol/L (136-145) 03/10/16 05:20 Potassium 4.1 mmol/L (3.5-5.1) 03/10/16 05:20 Chloride 100 mmol/L (98-107) 03/10/16 05:20 Carbon Dioxide 29 mmol/L (21-32) 03/10/16 05:20 Anion Gap 12 (8-16) 03/10/16 05:20 BUN 15 mg/dL (7-18) 03/10/16 05:20 Creatinine 0.5 mg/dL (0.55-1.02) L 03/10/16 05:20 Creat Clearance w eGFR > 60 (>60) 03/10/16 05:20 Random Glucose 95 mg/dL (74-106) 03/10/16 05:20 Calcium 8.4 mg/dL (8.5-10.1) L 03/10/16 05:20 Total Bilirubin 1.0 mg/dL (0.2-1.0) D 03/10/16 05:20 AST 25 U/L (15-37) 03/10/16 05:20 ALT 24 U/L (12-78) 03/10/16 05:20 Alkaline Phosphatase 75 U/L (45-117) 03/10/16 05:20 Total Protein 6.6 g/dl (6.4-8.2) 03/10/16 05:20 Albumin 3.0 g/dl (3.4-5.0) L 03/10/16 05:20 CARDIAC ENZYMES Creatine Kinase 30 IU/L (26-192) 03/09/16 10:36 Troponin I < 0.02 ng/ml (0.00-0.05) 03/09/16 10:36 Microbiology 03/08/16 21:10 Urine - Urine Clean Catch Urine Culture - Final NO GROWTH OBTAINED 03/08/16 19:15 Nasopharyngeal Swab Influenza Types A,B Antigen (ZEESHAN) - Final 03/08/16 19:15 Nasopharyngeal Swab - Final Assessment: This is a 75 year old female with PMHx of HTN, [place] x2, hx of multiple falls (most recent on 03/05) who presented to the ED with decrease po intake, lethargy, dizziness and was admitted for further evaluation and management of her emergent condition. Plan: 1) Cardiology: Moderate pericardial effusion - As evidence on ECHO with diastolic inversion of the right atrial free wall which may indicate early tamponade - Close monitoring in ICU, if worsening may require window. No current signs of cardiac tamponade - Suspect viral pericarditis (patient was ill for about 1 week prior to coming to the ED) - Discussed with Dr. Ospina, will start diet and treat with colchicine and NSAIDS (will place on Protonix for GI prophylaxis) - F/u ESR/CRP - Appreciate CT surgery consult - Appreciate critical care consult Chest pain - Hx of [place] x2 in the past - Trop x3 negative - No signs of ACS - Appreciate cardiology consult 2) Pulm: Acute hypoxia - On Ventimask, Bipap as needed - CTA with no evidence of PE 3) Cardiology: Systolic heart failure - Echo reviewed moderate to severe lvef with inferior wall hypokinesis - Will hold off on starting beta oc or marian-i given finding of pericardial effusion - No diuretics at this time - Appreciate cardiology consult 4) MSK: S/p fall 03/05 - Will attempt to receive records from [facility] - According to daughter, everything was negative and she was discharged home 5) Derm: RLE skin lesion - According to daughter, family told patient has bone cancer when at [place]? But does not want further testing - Awaiting records from [place] for confirmation of diagnosis 6) F/E/N: - Monitor electrolytes - NPO for now 7) Prophylaxis: - Hold all chemical anticoagulation given pericardial effusion 8) Dispo: - Requires ICU care CODE STATUS: FULL CODE Visit type - Emergency Visit Emergency Visit: Yes ED Registration Date: 03/09/16 Care time: The patient presented to the Emergency Department on the above date and was hospitalized for further evaluation of their emergent condition. - New Patient This patient is new to me today: Yes Date on this admission: 03/10/16 - Critical Care Critical Care patient: Yes Total Critical Care Time (in minutes): 35 Critical Care Statement: The care of this patient involved high complexity decision making to prevent further life threatening deterioration of the patient 's condition and/or to evalute & treat vital organ system(s) failure or risk of failure.
--- NOTE | 2016-03-10 14:54 | PN ---
Progress Note (short form) - Note Progress Note: cc: lethargy, weakness for 4 days/pericardial effusion. S: breathing improving, no cp, palps, dizziness. Current Medications Colchicine (Colcrys -) 0.6 mg PO BID JUAN Dextrose/Sodium Chloride (D5-1/3ns -) 500 mls @ 42 mls/hr IV ASDIR JUAN Indomethacin (Indocin -) 50 mg PO TID JUAN Vital Signs Period Temp Pulse Resp BP Sys/Sanford Pulse Ox Last 24 Hr 97.7 F-98.5 F 76-109 20-30 108-152/42-84 90-96 Intake & Output 03/08/16 03/09/16 03/10/16 03/11/16 07:59 07:59 07:59 07:59 Output Total 1250 Balance -1250 Weight 114 lb 4 oz 110 lb nad no jvd rrr s1s2 no mrg bibasilar rales nl eff awake, alert abd nt nd pos no jaundice, diaphoresis, facial bruising present pos dp pt no carotid bruit no le e/c/c CBC, BMP 03/10/16 05:20 03/10/16 05:20 Laboratory Tests 03/08/16 03/08/16 03/08/16 19:15 19:38 21:10 Hemoglobin A1c % Magnesium Total Bilirubin AST ALT Alkaline Phosphatase Troponin I < 0.02 B-Natriuretic Peptide 834.34 H Total Protein Albumin 3.0 L Urine Protein 1+ H 03/09/16 03/09/16 03/09/16 03:23 06:30 10:36 Hemoglobin A1c % 5.8 Magnesium Total Bilirubin AST ALT Alkaline Phosphatase Troponin I < 0.02 < 0.02 B-Natriuretic Peptide Total Protein Albumin Urine Protein 03/10/16 05:20 Hemoglobin A1c % Magnesium 2.1 Total Bilirubin 1.0 D AST 25 ALT 24 Alkaline Phosphatase 75 Troponin I B-Natriuretic Peptide Total Protein 6.6 Albumin 3.0 L Urine Protein ecg 03/08/16: sr, pac, nl intervals, no ischemic changes CTA: no PE. Increased interstitial markings and atelectasis at bases echo 03/09/16/: mod-sev dec lvef, inf wall hk, nl rv, mild lae, mild mr/tr, moderate pericardial eff, ?impending tamponade based on ra wall collapse tele: SR, pac's, pvc's, brief atrial runs. est cct 35 mins a/p: 75 f (she is 83 according to family) with hx htn, h/o [place] x 2, dementia and possible recent diagnosis of cancer (unknown type), here with lethargy, weakness found to have systolic cardiomyopathy and pericardial effusion. pericardial effusion: -reviewed echo, there is a moderate circumferential pericardial eff present but no signs of tamponade. clinically no signs of tamponade as well. CT surg following. ICU monitoring - pt NPO and on maintenance IVF. Getting empiric treatment for pericarditis. Ongoing hydration to prevent tamponade. Would order ESR, CRP. No evidence of TB or infection as etiology. Plan for repeat echo saturday to monitor effusion - patient with possible diagnosis of cancer. If effusion persists, concern need for diagnostic pericardiocentesis. syst chf: -echo here shows mod-sev decreased lvef with inferior hypokinesis, patient with h/o prior VA. -clinically no chf, but monitor closely with IVF. -no signs acs, ce's negx3, ecg w/o ischemic changes or significant q waves - patient with frequent ectopy on tele, will initiate low dose short acting metoprolol tomorrow if bp permits. hypoxia: -no signs chf or acs as above. Monitor closely for change in volume status or worsening oxygenation on IVF (currently hypoxia improving). -CTA with increased interstitial markings and by my review a dilated PA. ? underlying pulmonary disease vs. edema. -pulm following lethargy/weakness: -head ct w/o acute findings. likely 2/2 to aforementioned acute illnesses. htn: -bp stable here, off anti-hypertensives.
[2016-03-10] MEDS: INDOMETHACIN 50 MG CAPSULE PO SCH ×2 (17:21→21:54)
[2016-03-10] MEDS: PANTOPRAZOLE 40 MG TABLET (FP) PO SCH (17:23)
[2016-03-10] MEDS: COLCHICINE 0.6 MG TABLET (FP) PO SCH (21:04)
[2016-03-11] MEDS: INDOMETHACIN 50 MG CAPSULE PO SCH ×3 (05:25→21:31)
[2016-03-11 06:14] LABS: BASOPHIL 0.2 % (0-2.0); EOSINOPHIL 1.1 % (0-4.5); MCH 30.7 pg (25.7-33.7); MCHC 31.8 g/dl (32.0-36.0); MEAN CELL VOLUME 96.5 fl (80-96); MEAN PLT VOLUME 9.8 fl (7.5-11.1); NEUTROPHILS 72.7 % (42.8-82.8); PLATELET COUNT 149 K/MM3 (134-434); RDW 17.5 % (11.6-15.6); WHITE BLOOD COUNT 6.2 K/mm3 (4.0-10.0)
[2016-03-11 06:39] LABS: ALBUMIN 2.8 g/dl (3.4-5.0); ANION GAP 7 (8-16); CALCIUM 8.2 mg/dL (8.5-10.1); CO2 31 mmol/L (21-32); CREATININE 0.5 mg/dL (0.55-1.02); GLUCOSE,RANDOM 125 mg/dL (74-106); MAGNESIUM 2.1 mg/dL (1.8-2.4); PHOSPHOROUS 3.3 mg/dL (2.5-4.9); SGOT/AST 20 U/L (15-37); SGPT/ALT 23 U/L (12-78)
[2016-03-11 06:50] LABS: ALK PHOS 77 U/L (45-117); BILIRUBIN,TOTAL 1.1 mg/dL (0.2-1.0); THYROID STIMULATING HORMONE 0.13 uIU/ml (0.358-3.74); TOT PROT 6.4 g/dl (6.4-8.2)
[2016-03-11] MEDS ORDERED: METOPROLOL TARTRATE 25 MG TABLET (FP) PO SCH (10:00)
--- NOTE | 2016-03-11 10:05 | PN ---
Progress Note (short form) - Note Progress Note: PULM/CCM Patient seen and examined in the ICU. Awake and alert. No significant change in anterior chest discomfort. asking to eat normal pulse pressure, stable CXR: largely unchanged, mild vasc congestion, enlarged heart Vital Signs Temp 98.2 F 03/11/16 06:00 Pulse 75 03/11/16 08:00 Resp 22 03/11/16 08:00 BP 123/67 03/11/16 08:00 Pulse Ox 97 03/11/16 08:00 Intake & Output 03/10/16 03/10/16 03/11/16 11:59 23:59 11:59 Intake Total 220 554 Output Total 200 420 250 Balance -200 -200 304 Weight 49.895 kg 49.759 kg Intake: IV 504 D5-1/3Ns - 500 ml @ 42 504 mls/hr IV ASDIR [facility] Rx#: [id number] Oral 120 50 Oral Supplement 100 Output: Urine 200 420 250 Cooper 200 420 250 Other: Voiding Method Indwelling Catheter Indwelling Catheter Indwelling Catheter Bowel Movement No No No Weight Measurement Method Built [facility] Active Medications Colchicine (Colcrys -) 0.6 mg PO BID [facility] Last Admin: 03/10/16 21:04 Dose: 0.6 mg Dextrose/Sodium Chloride (D5-1/3ns -) 500 mls @ 42 mls/hr IV ASDIR [facility] Last Admin: 03/10/16 11:30 Dose: 42 mls/hr Indomethacin (Indocin -) 50 mg PO TID [facility] Last Admin: 03/11/16 05:25 Dose: 50 mg Metoprolol Tartrate (Lopressor -) 12.5 mg PO BID [facility] Pantoprazole Sodium (Protonix -) 40 mg PO DAILY [facility] Last Admin: 03/10/16 17:23 Dose: 40 mg Constitutional: Yes: Awake and alert Eyes: Yes: Other (bilateral contusion of eyes) Neck: Yes: Trachea Midline Cardiovascular: Yes: Regular Rate and Rhythm Respiratory: Yes: Scattered rhonchi, clears with cough Gastrointestinal: Yes: WNL, Normal Bowel Sounds, Soft Extremities: Yes: WNL Edema: No Integumentary: Yes: (+) lesion right singh) Neurological: Yes: Non-focal ...Motor Strength: WNL Labs: Assessment/Plan Pericardial effusion: ->? Viral Pericarditis Suspected Viral Syndrome CHF by history HTN S/P Mechanical Fall Skin lesion P/ Colchicine BID Indocin TID advance diet NO Lasix O2 as needed Hold Anti-HTN Strict I&O incentive spirometry f/u TTE next week given stability x 48hrs, w/o signs of tamponade can move to tele for monitoring Breezy Bennett ACNP [id number] CCTime 35"
[2016-03-11] MEDS ORDERED: PT OWN MED DRAWER 7, Y5N ONE (10:27)
[2016-03-11] MEDS: PANTOPRAZOLE 40 MG TABLET (FP) PO SCH (10:27)
[2016-03-11] MEDS: COLCHICINE 0.6 MG TABLET (FP) PO SCH ×2 (10:28→21:31)
--- NOTE | 2016-03-11 11:07 | PN ---
Progress Note, Physician History of Present Illness: Renal f/u Pt is OOB in chair and in no distress Tolerating PO intake IVF continues Urine for Pro/Cr in the non glomerular range at 0.78 Started on NSAID and Colchicine for the effusion - Current Medication List Current Medications: Active Medications Acetaminophen (Tylenol -) 650 mg PO Q6H PRN PRN Reason: FEVER OR PAIN Colchicine (Colcrys -) 0.6 mg PO BID [facility] Last Admin: 03/11/16 10:28 Dose: 0.6 mg Dextrose/Sodium Chloride (D5-1/3ns -) 500 mls @ 42 mls/hr IV ASDIR [facility] Last Admin: 03/10/16 11:30 Dose: 42 mls/hr Indomethacin (Indocin -) 50 mg PO TID [facility] Last Admin: 03/11/16 05:25 Dose: 50 mg Metoprolol Tartrate (Lopressor -) 12.5 mg PO BID [facility] Last Admin: 03/11/16 10:27 Dose: 12.5 mg Pantoprazole Sodium (Protonix -) 40 mg PO DAILY [facility] Last Admin: 03/11/16 10:27 Dose: 40 mg - Objective Vital Signs: Vital Signs Temperature 98.0 F 03/11/16 10:00 Pulse Rate 80 03/11/16 10:26 Respiratory Rate 22 03/11/16 10:00 Blood Pressure 119/66 03/11/16 10:00 O2 Sat by Pulse Oximetry (%) 96 03/11/16 10:26 Constitutional: Yes: No Distress Cardiovascular: Yes: S1, S2. No: JVD, Gallop, Murmur, Rub Respiratory: Yes: Other (Fine crackles at the left posterior base) Edema: No (RLE lesion with dressing ) Labs: CBC, BMP 03/11/16 05:20 03/11/16 05:20 INR, PTT INR 1.18 (0.82-1.09) H 03/10/16 05:20 Laboratory Tests 03/10/16 13:25 U Random Total Protein 127 H Urine Creatinine 162.0 Protein/Creatinin Ratio 0.78 - ....Imaging Chest X-ray: Other (Enlarged heard without congestion today) Assessment/Plan Impression Proteinuria - Non glomerular range Pericardial effusion in pt with recent viral syndrome Improved hypoxia with recent URI HFrEF based on echo result HTN Skin cancer S/p fall and laceration and head trauma Plan Continue with IVF D5 1/3 NS at 42 cc/hr ELIO ordered given the proteinuria and effusion Rpt labs in am Watch for worsening azotemia on the Colchicine and Indocin Dr Kelly
[2016-03-11] MEDS: ACETAMINOPHEN 325 MG TABLET (FP) PO PRN ×2 (11:19→21:32)
[2016-03-11] MEDS: DEXTROSE 5%-1/3 NS - 500 ML IV SCH (12:12)
--- NOTE | 2016-03-11 13:58 | PN ---
Progress Note (short form) - Note Progress Note: cc: lethargy, weakness for 4 days/pericardial effusion. S: breathing/lethargy improving, no cp, palps, + orthostatic symptoms. Current Medications Acetaminophen (Tylenol -) 650 mg PO Q6H PRN PRN Reason: FEVER OR PAIN Last Admin: 03/11/16 11:19 Dose: 650 mg Colchicine (Colcrys -) 0.6 mg PO BID [facility] Last Admin: 03/11/16 10:28 Dose: 0.6 mg Dextrose/Sodium Chloride (D5-1/3ns -) 500 mls @ 42 mls/hr IV ASDIR [facility] Last Admin: 03/11/16 12:12 Dose: 42 mls/hr Indomethacin (Indocin -) 50 mg PO TID [facility] Last Admin: 03/11/16 13:16 Dose: 50 mg Metoprolol Tartrate (Lopressor -) 12.5 mg PO BID [facility] Last Admin: 03/11/16 10:27 Dose: 12.5 mg Pantoprazole Sodium (Protonix -) 40 mg PO DAILY [facility] Last Admin: 03/11/16 10:27 Dose: 40 mg Polyethylene Glycol (Miralax (For Daily Use) -) 17 gm PO DAILY [facility] Vital Signs Period Temp Pulse Resp BP Sys/Sanford Pulse Ox Last 24 Hr 97.7 F-98.8 F 70-95 20-24 108-139/44-88 94-97 Intake & Output 03/09/16 03/10/16 03/11/16 03/12/16 07:59 07:59 07:59 07:59 Intake Total 774 Output Total 1250 670 Balance -1250 104 Weight 114 lb 4 oz 110 lb 109 lb 11.2 oz nad no jvd rrr s1s2 no mrg bibasilar rales nl eff awake, alert abd nt nd pos no jaundice, diaphoresis, facial bruising present pos dp pt no carotid bruit no le e/c/c CBC, BMP 03/11/16 05:20 03/11/16 05:20 Laboratory Tests 03/11/16 03/11/16 03/11/16 05:20 05:20 05:20 ESR 53 H Magnesium 2.1 C-Reactive Protein 8.4 H Albumin 2.8 L TSH 0.13 L ecg 03/08/16: sr, pac, nl intervals, no ischemic changes CTA: no PE. Increased interstitial markings and atelectasis at bases CXR 03/11: echo 03/09/16/: mod-sev dec lvef, inf wall hk, nl rv, mild lae, mild mr/tr, moderate pericardial eff, ?impending tamponade based on ra wall collapse tele: SR, pvc's, a/p: 75 f (she is 83 according to family) with hx htn, h/o [place] x 2, dementia and possible recent diagnosis of cancer (unknown type), here with lethargy, weakness found to have systolic cardiomyopathy and pericardial effusion. pericardial effusion: -reviewed echo, there is a moderate circumferential pericardial eff present but no signs of tamponade. clinically no signs of tamponade as well. CT surg following. - pt NPO and on maintenance IVF. Getting empiric treatment for pericarditis (ESR /CRP elevated). Ongoing hydration to prevent tamponade. No evidence of TB or infection as etiology. Plan for repeat echo saturday to monitor effusion - patient with possible diagnosis of cancer. If effusion persists, concern need for diagnostic pericardiocentesis. syst chf: -echo here shows mod-sev decreased lvef with inferior hypokinesis, patient with h/o prior [place]. -clinically no chf, but monitor closely with IVF. -no signs acs, ce's negx3, ecg w/o ischemic changes or significant q waves - patient with frequent ectopy on tele 03/10, initiated low dose short acting metoprolol today 03/11, but bp dropped slightly and patient with orthostatic symptoms --> Will stop. hypoxia: -no signs chf or acs as above. Monitor closely for change in volume status or worsening oxygenation on IVF (currently hypoxia improving). -CTA with increased interstitial markings and by my review a dilated PA. ? underlying pulmonary disease vs. edema. -pulm following lethargy/weakness: -head ct w/o acute findings. likely 2/2 to aforementioned acute illnesses. htn: -bp stable here, off anti-hypertensives. l est cct 35 mins
[2016-03-11] MEDS: POLYETHYLENE GLYCOL 3350 119 GM BTL PO SCH (14:00)
--- NOTE | 2016-03-11 15:21 | PN ---
Physical Exam: SUBJECTIVE: Patient seen and examined at bedside. Daughter present who served as [facility] mechanical design technician. OBJECTIVE: Vital Signs Period Temp Pulse Resp BP Sys/Sanford Pulse Ox Last 24 Hr 98.0 F-98.8 F 65-93 20-24 106-139/44-88 94-97 GENERAL: The patient is awake, alert. Frail, ill-appearing. HEAD: Extensive bilateral periorbital ecchymoses, laceration w/sutures to forehead, facial bruising in various stages of healing EYES: PERRL, extraocular movements intact, sclera anicteric, conjunctiva clear. No ptosis. LUNGS: Bibasilar crackles; productive cough HEART: Regular rate and rhythm, S1, S2 with pericardial rub ABDOMEN: Soft, nontender, nondistended, normoactive bowel sounds, no guarding, no rebound, no hepatosplenomegaly, no masses. EXTREMITIES: 2+ pulses, warm, well-perfused, no edema. 4cm tumorous growth RLE. Large RUE ecchymosis. NEUROLOGICAL: Cranial nerves II through XII grossly intact. Normal speech, gait not observed. Laboratory Results - last 24 hr 03/10/16 03/11/16 03/11/16 13:25 05:20 05:20 WBC 6.2 RBC 4.25 Hgb 13.1 Hct 41.0 MCV 96.5 H MCHC 31.8 L RDW 17.5 H Plt Count 149 MPV 9.8 Neutrophils % 72.7 Lymphocytes % 14.2 Monocytes % 11.8 H Eosinophils % 1.1 D Basophils % 0.2 ESR Sodium 139 Potassium 4.0 Chloride 101 Carbon Dioxide 31 Anion Gap 7 L BUN 17 Creatinine 0.5 L Creat Clearance w eGFR > 60 Random Glucose 125 H D Calcium 8.2 L Phosphorus 3.3 Magnesium 2.1 Total Bilirubin 1.1 H AST 20 ALT 23 Alkaline Phosphatase 77 C-Reactive Protein Total Protein 6.4 Albumin 2.8 L TSH 0.13 L U Random Total Protein 127 H Urine Creatinine 162.0 Protein/Creatinin Ratio 0.78 03/11/16 03/11/16 05:20 05:20 WBC RBC Hgb Hct MCV MCHC RDW Plt Count MPV Neutrophils % Lymphocytes % Monocytes % Eosinophils % Basophils % ESR 53 H Sodium Potassium Chloride Carbon Dioxide Anion Gap BUN Creatinine Creat Clearance w eGFR Random Glucose Calcium Phosphorus Magnesium Total Bilirubin AST ALT Alkaline Phosphatase C-Reactive Protein 8.4 H Total Protein Albumin TSH U Random Total Protein Urine Creatinine Protein/Creatinin Ratio Active Medications Generic Name Dose Route Start Last Admin Trade Name Leo PRN Reason Stop Dose Admin Acetaminophen 650 mg 03/11/16 10:54 03/11/16 11:19 Tylenol - PO 650 mg Q6H PRN Administration FEVER OR PAIN Colchicine 0.6 mg 03/10/16 22:00 03/11/16 10:28 Colcrys - PO 0.6 mg BID JUAN Administration Dextrose/Sodium Chloride 500 mls @ 42 mls/hr 03/10/16 11:30 03/11/16 12:12 D5-1/3ns - IV 42 mls/hr ASDIR JUAN Administration Indomethacin 50 mg 03/10/16 14:30 03/11/16 13:16 Indocin - PO 50 mg TID JUAN Administration Pantoprazole Sodium 40 mg 03/10/16 15:00 03/11/16 10:27 Protonix - PO 40 mg DAILY JUAN Administration Polyethylene Glycol 17 gm 03/11/16 14:00 03/11/16 14:00 Miralax (For Daily Use) - PO 17 grams DAILY JUAN Administration ASSESSMENT/PLAN: 75 year-old female with PMH of HTN, [place] x2, multiple falls (most recent on ). Admitted for moderate pericardial effusion. Moderate pericardial effusion Severe sytolic heart failure --03/09/16 Echo: LV function moderately to severely reduced, inferior wall severely hypokinetic; RV grossly normal; LAE; mild MR, mild TR, trace to mild PI ; moderate pericardial effusion with diastolic inversion of the right atrial free wall --etiology of effusion not clear: viral jose m/adi carditis v. bacterial v. malignancy; for now, battery technician treating as viral pericarditis with colchicine and indomethacin --hemodynamically stable --CT surgery following, no immediate indication for window --no BB, no ACEI, no diuretics --repeat echo tomorrow Chest pain --troponins neg x 3 Acute hypoxia, improved --satting 96% on 3L NC --CTA negative for PE Soft tissue facial injuries s/p mechanical fall --was seen at [facility], records reviewed, no acute fractures r/o malignancy --imaging from [facility] showed lytic lesions throughout the calvarium and the cervical spine; also with tumorous growth on RLE --family wants to take patient back to [place] for further workup F/E/N Fluids: PO intake adequate Electrolyes: replete as indicated Nutrition: regular diet DVT prophylaxis: hold all chemical anticoagulation given pericardial effusion; SCDs; oob, ambulation Dispo: continues to require inpatient care. Full Code. Visit type - Emergency Visit Emergency Visit: Yes ED Registration Date: 03/09/16 Care time: The patient presented to the Emergency Department on the above date and was hospitalized for further evaluation of their emergent condition. - New Patient This patient is new to me today: Yes Date on this admission: 03/11/16 - Critical Care Critical Care patient: Yes Total Critical Care Time (in minutes): 45 Critical Care Statement: The care of this patient involved high complexity decision making to prevent further life threatening deterioration of the patient 's condition and/or to evalute & treat vital organ system(s) failure or risk of failure.
[2016-03-12] MEDS: DEXTROSE 5%-1/3 NS - 500 ML IV SCH ×2 (02:00→14:00)
[2016-03-12] MEDS: INDOMETHACIN 50 MG CAPSULE PO SCH ×3 (05:47→21:10)
[2016-03-12 06:14] LABS: BASOPHIL 0.3 % (0-2.0); EOSINOPHIL 3.5 % (0-4.5); MCH 32.3 pg (25.7-33.7); MCHC 33.7 g/dl (32.0-36.0); MEAN CELL VOLUME 95.7 fl (80-96); MEAN PLT VOLUME 9.6 fl (7.5-11.1); NEUTROPHILS 64.1 % (42.8-82.8); PLATELET COUNT 149 K/MM3 (134-434); RDW 16.8 % (11.6-15.6); WHITE BLOOD COUNT 5.8 K/mm3 (4.0-10.0)
[2016-03-12 06:33] LABS: CALCIUM 7.9 mg/dL (8.5-10.1); CREATININE 0.5 mg/dL (0.55-1.02); MAGNESIUM 2.1 mg/dL (1.8-2.4); PHOSPHOROUS 2.4 mg/dL (2.5-4.9)
--- NOTE | 2016-03-12 08:01 | PN ---
Addendum entered and electronically signed by Bro Walters PA 03/12/16 10:43: Per conversation with Marisa Bartlett NP, patient's family doesn't wish to proceed with a malignancy work-up or have the lower extremity lesion biopsied. Addendum entered and electronically signed by Bro Walters PA 03/12/16 09:07: Consult --> Dr. Pruett for punch biopsy (ordered) Original Note: Progress Note (short form) - Note Progress Note: 75yo female admitted with SOB. Echo 03/09 identified moderate pericardial effusion, severe systolic heart failure, LV function moderately to severely reduced, inferior wall severely hypokinetic; RV grossly normal; LAE; mild MR, mild TR, trace to mild PI; with diastolic inversion of the right atrial free wall. Etiology of effusion not clear: viral jose m/adi carditis v. bacterial v. malignancy; for now, center medical director treating as viral pericarditis with colchicine and indomethacin. She is hemodynamically stable. No acute events per RN notes. Last Vital Signs Temp Pulse Resp BP Pulse Ox 97.8 F 77 21 114/66 95 03/12/16 06:00 03/12/16 06:00 03/12/16 06:00 03/12/16 06:00 03/11/16 21:53 CBC, BMP 03/12/16 05:00 03/12/16 05:00 INR, PTT INR 1.18 (0.82-1.09) H 03/10/16 05:20 Problem List - Problems (1) Pericardial effusion Assessment/Plan: CT surgery will continue to follow At this time, no immediate indication for pericardial window No BB, no ACEI, no diuretics f/u repeat echo Needs malignancy work-up LLE lesion which we recommend a punch biopsy Cont care as per ICU Above plan discussed with Dr. Rasheed and agrees Code(s): I31.3 - PERICARDIAL EFFUSION (NONINFLAMMATORY)
[2016-03-12] MEDS ORDERED: PT OWN MED DRAWER 7, Y5N ONE ×2 (09:30→19:31)
[2016-03-12] MEDS: PANTOPRAZOLE 40 MG TABLET (FP) PO SCH (09:30)
[2016-03-12] MEDS: COLCHICINE 0.6 MG TABLET (FP) PO SCH ×2 (09:31→21:11)
[2016-03-12] MEDS: POLYETHYLENE GLYCOL 3350 119 GM BTL PO SCH (09:32)
--- NOTE | 2016-03-12 10:13 | PN ---
Progress Note, Physician Chief Complaint: chf, pericardial effusion History of Present Illness: no slovak; appears comfortable - Current Medication List Current Medications: Active Medications Acetaminophen (Tylenol -) 650 mg PO Q6H PRN PRN Reason: FEVER OR PAIN Last Admin: 03/11/16 21:32 Dose: 650 mg Colchicine (Colcrys -) 0.6 mg PO BID [facility] Last Admin: 03/12/16 09:31 Dose: 0.6 mg Dextrose/Sodium Chloride (D5-1/3ns -) 500 mls @ 42 mls/hr IV ASDIR [facility] Last Admin: 03/12/16 02:00 Dose: 42 mls/hr Indomethacin (Indocin -) 50 mg PO TID [facility] Last Admin: 03/12/16 05:47 Dose: 50 mg Pantoprazole Sodium (Protonix -) 40 mg PO DAILY [facility] Last Admin: 03/12/16 09:30 Dose: 40 mg Polyethylene Glycol (Miralax (For Daily Use) -) 17 gm PO DAILY [facility] Last Admin: 03/12/16 09:32 Dose: 17 grams - Objective Vital Signs: Vital Signs Temperature 98.2 F 03/12/16 08:00 Pulse Rate 81 03/12/16 09:37 Respiratory Rate 18 03/12/16 08:00 Blood Pressure 144/68 03/12/16 08:00 O2 Sat by Pulse Oximetry (%) 95 03/12/16 09:37 Constitutional: Yes: No Distress, Calm Eyes: No: Sclera Icterus HENT: No: Nasal Congestion Cardiovascular: Yes: Regular Rate and Rhythm, JVD (possible (EJs?)), S1, S2, Other (PMI non diplaced). No: Gallop, Murmur, Rub Respiratory: Yes: CTA Bilaterally. No: Accessory Muscle Use, Rales, Wheezes Gastrointestinal: Yes: Normal Bowel Sounds, Soft. No: Tenderness Musculoskeletal: Yes: Other (No kyphosis) Extremities: No: Cold Edema: No Integumentary: No: Jaundice Neurological: Yes: Alert. No: Seizure Psychiatric: No: Agitated Labs: CBC, BMP 03/12/16 05:00 03/12/16 05:00 INR, PTT INR 1.18 (0.82-1.09) H 03/10/16 05:20 - ....Imaging EKG: Other (telem: NSR, freq PVCs) Assessment/Plan CTA: no PE. Increased interstitial markings and atelectasis at bases Echo 03/09/16/: mod-sev dec lvef, inf wall hk, nl rv, mild lae, mild mr/tr, moderate pericardial eff, ?impending tamponade based on ra wall collapse a/p: 75 f (she is 83 according to family) with hx htn, h/o [place] x 2, dementia and possible recent diagnosis of cancer (unknown type), here with lethargy, weakness found to have systolic cardiomyopathy and pericardial effusion. pericardial effusion, ? acute pericarditis: -reviewed echo, there is a moderate circumferential pericardial eff present but no signs of tamponade. clinically no signs of tamponade as well. -CT surg following, for possible windwo if effusion persists - pt NPO and on maintenance IVF. -CRP and ESR elevated but ? sec to malignancy; has no friction rub present and none previously documented on exam in prior notes; ecg with mild nonsp ST-Ts-- cont indocin 50 TID (creat stable) but may need to d/c if intolerance, and no findings convincing for acute pericarditis -Plan for repeat echo today to monitor effusion - patient with possible diagnosis of cancer, ? malignant effusion here syst chf: -echo here shows mod-sev decreased lvef with inferior hypokinesis, patient with h/o prior [place]. -03/12: clinically no definite chf, exam equiovocal for JVD--monitor closely with IVF. -no signs acs, ce's negx3, ecg w/o ischemic changes or significant q waves - patient with frequent ectopy on tele 03/10, initiated low dose short acting metoprolol today 03/11, but bp dropped slightly and patient with orthostatic symptoms --> Will stop. hypoxia: -no signs chf or acs as above. Monitor closely for change in volume status or worsening oxygenation on IVF (currently hypoxia improving). -CTA with increased interstitial markings and by my review a dilated PA. ? underlying pulmonary disease vs. edema. -pulm following lethargy/weakness: -head ct w/o acute findings. likely 2/2 to aforementioned acute illnesses. htn: -bp stable here, off anti-hypertensives. est c.c. time in mgmt 35 min
--- NOTE | 2016-03-12 12:37 | PN ---
Teaching Attending Note Name of Resident: Dajuan Gerber ATTENDING PHYSICIAN STATEMENT I saw and evaluated the patient. I reviewed the resident's note and discussed the case with the resident. I agree with the resident's findings and plan as documented. SUBJECTIVE: Pt seen and examined in the ICU. Unable to communicate. Hemodynamically stable, saturating well on nasal cannula. OBJECTIVE: Last Vital Signs Temp Pulse Resp BP Pulse Ox 98 F 81 16 108/66 95 03/12/16 12:00 03/12/16 12:00 03/12/16 12:00 03/12/16 12:00 03/12/16 09:37 Intake & Output 03/09/16 03/10/16 03/11/16 03/12/16 23:59 23:59 23:59 23:59 Intake Total 220 1178 504 Output Total 1050 620 750 200 Balance -1050 -400 428 304 Weight 114 lb 4 oz 110 lb 109 lb 11.2 oz 112 lb 6.972 oz Gen: NAD at rest Heart: RRR Lung: decreased breath sounds at the bases Abd: soft, nontender Ext: no edema CBC, BMP 03/12/16 05:00 03/12/16 05:00 Active Medications Acetaminophen (Tylenol -) 650 mg PO Q6H PRN PRN Reason: FEVER OR PAIN Last Admin: 03/11/16 21:32 Dose: 650 mg Colchicine (Colcrys -) 0.6 mg PO BID [facility] Last Admin: 03/12/16 09:31 Dose: 0.6 mg Dextrose/Sodium Chloride (D5-1/3ns -) 500 mls @ 42 mls/hr IV ASDIR [facility] Last Admin: 03/12/16 02:00 Dose: 42 mls/hr Indomethacin (Indocin -) 50 mg PO TID [facility] Last Admin: 03/12/16 05:47 Dose: 50 mg Pantoprazole Sodium (Protonix -) 40 mg PO DAILY [facility] Last Admin: 03/12/16 09:30 Dose: 40 mg Polyethylene Glycol (Miralax (For Daily Use) -) 17 gm PO DAILY [facility] Last Admin: 03/12/16 09:32 Dose: 17 grams ASSESSMENT AND PLAN: Pericardial Effusion LV Systolic Dysfunction Hypoxia HTN Dementia r/o Malignancy - repeat echocardiogram to reassess pericardial effusion - continue empiric colchicine, indomethacin - IVF - monitor urine output, creatinine - per surgical note, family declining further diagnostic procedures - discuss with family goals of care and advanced directives if they do not want further procedures - DVT prophylaxis
--- NOTE | 2016-03-12 13:16 | PN ---
Progress Note, Physician History of Present Illness: Pt seen and examined at bedside. She appears more comfortable today than she did on saturday. - Current Medication List Current Medications: Active Medications Acetaminophen (Tylenol -) 650 mg PO Q6H PRN PRN Reason: FEVER OR PAIN Last Admin: 03/11/16 21:32 Dose: 650 mg Colchicine (Colcrys -) 0.6 mg PO BID [facility] Last Admin: 03/12/16 09:31 Dose: 0.6 mg Dextrose/Sodium Chloride (D5-1/3ns -) 500 mls @ 42 mls/hr IV ASDIR [facility] Last Admin: 03/12/16 02:00 Dose: 42 mls/hr Indomethacin (Indocin -) 50 mg PO TID [facility] Last Admin: 03/12/16 05:47 Dose: 50 mg Pantoprazole Sodium (Protonix -) 40 mg PO DAILY [facility] Last Admin: 03/12/16 09:30 Dose: 40 mg Polyethylene Glycol (Miralax (For Daily Use) -) 17 gm PO DAILY [facility] Last Admin: 03/12/16 09:32 Dose: 17 grams - Objective Vital Signs: Vital Signs Temperature 98 F 03/12/16 12:00 Pulse Rate 81 03/12/16 12:00 Respiratory Rate 16 03/12/16 12:00 Blood Pressure 108/66 03/12/16 12:00 O2 Sat by Pulse Oximetry (%) 95 03/12/16 09:37 Constitutional: Yes: Calm Cardiovascular: Yes: S1, S2 Respiratory: Yes: CTA Bilaterally Gastrointestinal: Yes: Soft Genitourinary: Yes: WNL Musculoskeletal: Yes: Muscle Weakness Edema: No Neurological: Yes: Oriented Labs: CBC, BMP 03/12/16 05:00 03/12/16 05:00 INR, PTT INR 1.18 (0.82-1.09) H 03/10/16 05:20 - ....Imaging Chest X-ray: Report Reviewed Problem List - Problems (1) Hypoxia Code(s): R09.02 - HYPOXEMIA (2) Lethargy Code(s): R53.83 - OTHER FATIGUE (3) Pericardial effusion Code(s): I31.3 - PERICARDIAL EFFUSION (NONINFLAMMATORY) (4) Proteinuria Code(s): R80.9 - PROTEINURIA, UNSPECIFIED (5) Hypertension Code(s): I10 - ESSENTIAL (PRIMARY) HYPERTENSION (6) Skin cancer Code(s): C44.90 - UNSPECIFIED MALIGNANT NEOPLASM OF SKIN, UNSPECIFIED Assessment/Plan Current Medications Generic Name Dose Route Start Last Admin Trade Name Freq PRN Reason Stop Dose Admin Acetaminophen 650 mg 03/11/16 10:54 03/11/16 21:32 Tylenol - PO 650 mg Q6H PRN Administration FEVER OR PAIN Colchicine 0.6 mg 03/10/16 22:00 03/12/16 09:31 Colcrys - PO 0.6 mg BID JUAN Administration Dextrose/Sodium Chloride 500 mls @ 42 mls/hr 03/10/16 11:30 03/12/16 02:00 D5-1/3ns - IV 42 mls/hr ASDIR JUAN Administration Indomethacin 50 mg 03/10/16 14:30 03/12/16 05:47 Indocin - PO 50 mg TID JUAN Administration Pantoprazole Sodium 40 mg 03/10/16 15:00 03/12/16 09:30 Protonix - PO 40 mg DAILY JUAN Administration Polyethylene Glycol 17 gm 03/11/16 14:00 03/12/16 09:32 Miralax (For Daily Use) - PO 17 grams DAILY JUAN Administration Laboratory Tests 03/11/16 03/11/16 03/12/16 05:20 05:20 05:00 C-Reactive Protein 8.4 H Albumin 2.8 L ELIO Screen Pending Impression 1. pericardial effusion 2. hypoxia 3. proteinuria 4. HTN 5. skin cancer 6. congestion on cxr 7. s/p fall and laceration to head Plan - cont current management - repeat echo today - can stop fluids from renal standpoint - will discuss care with pts family - monitor in ICU - will follow Dr Ruth
--- NOTE | 2016-03-12 14:20 | PN ---
Physical Exam: SUBJECTIVE: Patient seen and examined in ICU. OBJECTIVE: Vital Signs Period Temp Pulse Resp BP Sys/Sanford Pulse Ox Last 24 Hr 97.4 F-98.8 F 65-84 14-21 108-154/47-88 95-97 GENERAL: The patient is awake, alert. Frail but more alert than yesterday. HEAD: Extensive bilateral periorbital ecchymoses, laceration w/sutures to forehead, facial bruising in various stages of healing EYES: PERRL, extraocular movements intact, sclera anicteric, conjunctiva clear. No ptosis. LUNGS: Bibasilar crackles; productive cough HEART: Regular rate and rhythm, S1, S2 with pericardial rub ABDOMEN: Soft, nontender, nondistended, normoactive bowel sounds, no guarding, no rebound, no hepatosplenomegaly, no masses. EXTREMITIES: 2+ pulses, warm, well-perfused, no edema. 4cm tumorous growth RLE. Large RUE ecchymosis. NEUROLOGICAL: Cranial nerves II through XII grossly intact. Normal speech, gait not observed. Laboratory Results - last 24 hr 03/12/16 03/12/16 05:00 05:00 WBC 5.8 RBC 3.75 Hgb 12.1 Hct 35.9 MCV 95.7 MCHC 33.7 RDW 16.8 H Plt Count 149 MPV 9.6 Neutrophils % 64.1 Lymphocytes % 19.4 D Monocytes % 12.7 H Eosinophils % 3.5 D Basophils % 0.3 Sodium 139 Potassium 3.8 Chloride 100 Carbon Dioxide 30 Anion Gap 9 BUN 17 Creatinine 0.5 L Random Glucose 129 H Calcium 7.9 L Phosphorus 2.4 L D Magnesium 2.1 Active Medications Generic Name Dose Route Start Last Admin Trade Name Freq PRN Reason Stop Dose Admin Acetaminophen 650 mg 03/11/16 10:54 03/11/16 21:32 Tylenol - PO 650 mg Q6H PRN Administration FEVER OR PAIN Colchicine 0.6 mg 03/10/16 22:00 03/12/16 09:31 Colcrys - PO 0.6 mg BID JUAN Administration Dextrose/Sodium Chloride 500 mls @ 42 mls/hr 03/10/16 11:30 03/12/16 02:00 D5-1/3ns - IV 42 mls/hr ASDIR JUAN Administration Indomethacin 50 mg 03/10/16 14:30 03/12/16 13:33 Indocin - PO 50 mg TID JUAN Administration Pantoprazole Sodium 40 mg 03/10/16 15:00 03/12/16 09:30 Protonix - PO 40 mg DAILY JUAN Administration Polyethylene Glycol 17 gm 03/11/16 14:00 03/12/16 09:32 Miralax (For Daily Use) - PO 17 grams DAILY JUAN Administration ASSESSMENT/PLAN: 75 year-old female with PMH of HTN, [place] x2, multiple falls (most recent on ). Admitted for moderate pericardial effusion. Moderate pericardial effusion Severe sytolic heart failure --03/09/16 Echo: LV function moderately to severely reduced, inferior wall severely hypokinetic; RV grossly normal; LAE; mild MR, mild TR, trace to mild PI ; moderate pericardial effusion with diastolic inversion of the right atrial free wall --etiology of effusion not clear: viral jose m/adi carditis v. bacterial v. 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 and indomethacin --hemodynamically stable --CT surgery following, no immediate indication for window --no BB, no ACEI, no diuretics --repeat echo today Chest pain --troponins neg x 3 Acute hypoxia, improved --satting 96% on 3L NC --CTA negative for PE Soft tissue facial injuries s/p mechanical fall --was seen at [facility], records reviewed, no acute fractures r/o malignancy --imaging from [facility] showed lytic lesions throughout the calvarium and the cervical spine; also with tumorous growth on RLE --family wants to take patient back to [place] for further workup F/E/N Fluids: PO intake adequate Electrolyes: replete as indicated Nutrition: regular diet DVT prophylaxis: hold all chemical anticoagulation given pericardial effusion; SCDs; oob, ambulation Dispo: continues to require inpatient care. Full Code. Visit type - Emergency Visit Emergency Visit: Yes ED Registration Date: 03/09/16 Care time: The patient presented to the Emergency Department on the above date and was hospitalized for further evaluation of their emergent condition. - New Patient This patient is new to me today: No - Critical Care Critical Care patient: Yes Total Critical Care Time (in minutes): 35 Critical Care Statement: The care of this patient involved high complexity decision making to prevent further life threatening deterioration of the patient 's condition and/or to evalute & treat vital organ system(s) failure or risk of failure.
--- NOTE | 2016-03-12 14:52 | PN ---
Progress Note, Physician History of Present Illness: no issues overnight no complaints - Current Medication List Current Medications: Active Medications Acetaminophen (Tylenol -) 650 mg PO Q6H PRN PRN Reason: FEVER OR PAIN Last Admin: 03/11/16 21:32 Dose: 650 mg Colchicine (Colcrys -) 0.6 mg PO BID [facility] Last Admin: 03/12/16 09:31 Dose: 0.6 mg Dextrose/Sodium Chloride (D5-1/3ns -) 500 mls @ 42 mls/hr IV ASDIR [facility] Last Admin: 03/12/16 02:00 Dose: 42 mls/hr Indomethacin (Indocin -) 50 mg PO TID [facility] Last Admin: 03/12/16 13:33 Dose: 50 mg Pantoprazole Sodium (Protonix -) 40 mg PO DAILY [facility] Last Admin: 03/12/16 09:30 Dose: 40 mg Polyethylene Glycol (Miralax (For Daily Use) -) 17 gm PO DAILY [facility] Last Admin: 03/12/16 09:32 Dose: 17 grams - Objective Vital Signs: Vital Signs Temperature 98 F 03/12/16 12:00 Pulse Rate 81 03/12/16 12:00 Respiratory Rate 16 03/12/16 12:00 Blood Pressure 108/66 03/12/16 12:00 O2 Sat by Pulse Oximetry (%) 95 03/12/16 09:37 Constitutional: Yes: Well Nourished, No Distress, Calm, Thin Eyes: Yes: Other (bilateral contusion of eyes) Neck: Yes: Trachea Midline Cardiovascular: Yes: Regular Rate and Rhythm, Other (no chest wall tenderness increased cheat pain with movement) Respiratory: Yes: CTA Bilaterally Gastrointestinal: Yes: WNL, Normal Bowel Sounds, Soft Extremities: Yes: WNL Edema: No Integumentary: Yes: Other (large cauliflower fleshy/red like growth of right singh) Neurological: Yes: Alert, Oriented, Cran Nerves II-XII Intact ...Motor Strength: WNL Labs: CBC, BMP 03/12/16 05:00 03/12/16 05:00 INR, PTT INR 1.18 (0.82-1.09) H 03/10/16 05:20 Assessment/Plan 75F with HTN admitted with nausea vomiting weakness and anorexia found to have a pericardial effusion on echo and CT scan transferred to ICU for further monitoring. Pericardial effusion:hemodynamically stable: possible effusion could be from recent viral infection no clinical evidence of pericardial effusion BP stable No JVD no muffled heart sounds CTA chest negative for PE CT surgery consult appreciated no window at this time Nephrology consult for diuresis appreciated will hold off at this time hold norvasc per cardiology fluid bolus PRN hypotension [facility] contacted for imaging studies show lytic lesion on head CT and spinal XR family does not want work up or biopsy of skin lesion no beta blockers no diuresis (lasix) continue indomethacin continue colchicine f/u repeat echo systolic CHF: newly diagnosed on echo mod-severe decreased LEVF, inferior wall hypokinesis, normal right ventricular function, mild eft atrial enlargement, mild mitral regurg/tricuspid regurg, moderate pericardial effusion, possible impending tamponade based on right atrial wall collapse Cardiology consult appreciated will hold off on diuresis Hypoxia: Patient saturating well in ICU on 50% venti mask BiPap PRN CTA chest negative for PE HTN: Controlled for now hold norvasc per cardiology for now mechanical fall: no issues at this time repeat head CT stable Skin lesion likely malignancy: likely some kind of benign or malignant growth possible patient has other malignancy will need outpt follow up with surgery/dermatology does not want biopsy at this time family wants work up in [place] Protenuria: Nephrology consult appreciated repeat labs per nephrology FEN: d51/3NS @ 42ml/hr no electrolyte abnormalities Reg diet PPx: HSQ SCD No Gi PPx indicated PT consult Patient seen and case discussed with Dr. Ospina
--- NOTE | 2016-03-12 17:04 | PN ---
Progress Note (short form) - Note Progress Note: Pt seen. HD stable. Echo results stable. No suspicion of clinical tamponade. I am available if drainage necessary. Please consult as needed.
[2016-03-12] MEDS: ACETAMINOPHEN 325 MG TABLET (FP) PO PRN (19:34)
[2016-03-13] MEDS: INDOMETHACIN 50 MG CAPSULE PO SCH ×3 (06:01→22:11)
[2016-03-13 06:03] LABS: MCH 30.9 pg (25.7-33.7); MCHC 32.6 g/dl (32.0-36.0); MEAN CELL VOLUME 94.9 fl (80-96); MEAN PLT VOLUME 9.8 fl (7.5-11.1); PLATELET COUNT 190 K/MM3 (134-434); RDW 16.9 % (11.6-15.6)
[2016-03-13 06:12] LABS: INR 1.2 (0.82-1.09); PROTHROMBIN TIME (PATIENT) 13.2 SEC (9.98-11.88)
[2016-03-13 06:22] LABS: ALBUMIN 2.6 g/dl (3.4-5.0); ANION GAP 5 (8-16); BILIRUBIN,TOTAL 0.6 mg/dL (0.2-1.0); CALCIUM 8.1 mg/dL (8.5-10.1); CO2 32 mmol/L (21-32); CREATININE 0.5 mg/dL (0.55-1.02); GLUCOSE,RANDOM 122 mg/dL (74-106); MAGNESIUM 2.1 mg/dL (1.8-2.4); PHOSPHOROUS 2.6 mg/dL (2.5-4.9); SGOT/AST 14 U/L (15-37); SGPT/ALT 22 U/L (12-78); TOT PROT 5.8 g/dl (6.4-8.2)
[2016-03-13 06:23] LABS: ALK PHOS 80 U/L (45-117)
--- NOTE | 2016-03-13 09:10 | PN ---
Progress Note (short form) - Note Progress Note: Chief Complaint: chf, pericardial effusion History of Present Illness: no citizen of [place]; appears comfortable, + productive cough. no edema. Current Medications Acetaminophen (Tylenol -) 650 mg PO Q6H PRN PRN Reason: FEVER OR PAIN Last Admin: 03/12/16 19:34 Dose: 650 mg Colchicine (Colcrys -) 0.6 mg PO BID [facility] Last Admin: 03/12/16 21:11 Dose: 0.6 mg Indomethacin (Indocin -) 50 mg PO TID [facility] Last Admin: 03/13/16 06:01 Dose: 50 mg Pantoprazole Sodium (Protonix -) 40 mg PO DAILY [facility] Last Admin: 03/12/16 09:30 Dose: 40 mg Polyethylene Glycol (Miralax (For Daily Use) -) 17 gm PO DAILY [facility] Last Admin: 03/12/16 09:32 Dose: 17 grams Vital Signs Period Temp Pulse Resp BP Sys/Sanford Pulse Ox Last 24 Hr 98 F-98.2 F 60-88 14-22 94-143/40-92 95-97 Intake & Output 03/11/16 03/12/16 03/13/16 03/14/16 07:59 07:59 07:59 07:59 Intake Total 774 1128 1368 Output Total 670 700 800 Balance 104 428 568 Weight 109 lb 11.2 oz 112 lb 6.972 oz 115 lb 8.356 oz Constitutional: Yes: No Distress, Calm Eyes: No: Sclera Icterus HENT: No: Nasal Congestion Cardiovascular: Yes: Regular Rate and Rhythm, JVD (possible (EJs?)), S1, S2, Other (PMI non diplaced). No: Gallop, Murmur, Rub Respiratory: Yes: bibasilar rales No: Accessory Muscle Use, Rales, Wheezes Gastrointestinal: Yes: Normal Bowel Sounds, Soft. No: Tenderness Musculoskeletal: Yes: Other (No kyphosis) Extremities: No: Cold Edema: No Integumentary: No: Jaundice Neurological: Yes: Alert. No: Seizure Psychiatric: No: Agitated Labs: CBC, BMP 03/13/16 05:00 03/13/16 05:00 Laboratory Tests 03/13/16 05:00 Magnesium 2.1 Total Bilirubin 0.6 D AST 14 L D ALT 22 Alkaline Phosphatase 80 Albumin 2.6 L - ....Imaging EKG: Other (telem: NSR, freq PVCs/trigeminy) Assessment/Plan CTA: no PE. Increased interstitial markings and atelectasis at bases Echo 03/09/16/: mod-sev dec lvef, inf wall hk, nl rv, mild lae, mild mr/tr, moderate pericardial eff, ?impending tamponade based on ra wall collapse Repeat echo 03/12/16: mild con LVH. mod-sev depressed LV sys func (global), 1+ MR/TR, effusion unchanged, still with early diastolic RA collapse. Repeat cxr: large heart. R pl effusion. a/p: 75 f (she is 83 according to family) with hx htn, h/o [place] x 2, dementia and possible recent diagnosis of cancer (unknown type), here with lethargy, weakness found to have systolic cardiomyopathy and pericardial effusion. pericardial effusion, ? acute pericarditis: -reviewed echo, there is a moderate circumferential pericardial eff present but no signs of tamponade. clinically no signs of tamponade as well. -CT surg following, -CRP and ESR elevated but ? sec to malignancy; has no friction rub present and none previously documented on exam in prior notes; ecg with mild nonsp ST-Ts-- cont indocin 50 TID (creat stable) but may need to d/c if intolerance, and no findings convincing for acute pericarditis -03/13 Size of effusion and RA collapse unchanged 03/12 despite IVF resuscitation and treatment of possible pericarditis. Now with signs of worsening volume overload (increased pleural effusion). Currently off IVF. Agree with gentle diuresis with close monitoring of hemodynamics. Consider palliative consult to clarify goals of care and consider whether diagnostic pericardiocentesis/pericardial window would be in line with goals of care. syst chf: -echo here shows mod-sev decreased lvef with inferior hypokinesis, patient with h/o prior [place]. -03/12: clinically no definite chf, exam equiovocal for JVD--monitor closely with IVF. - 03/13: Now off IVF. CXR with new rt pleural effusion. No change in effusion size or hemodynamics with IVF. gentle diuresis as mentioned above. Strict I/O' s, daily weights. -no signs acs, ce's negx3, ecg w/o ischemic changes or significant q waves - patient with frequent ectopy on tele 03/10, initiated low dose short acting metoprolol 03/11, but bp dropped slightly and patient with orthostatic symptoms -> stopped hypoxia: -no signs chf or acs as above, initially. Now with increased congestion and rt pleural effusion on CXR 03/13. Con't to monitor. -CTA with increased interstitial markings and by my review a dilated PA. ? underlying pulmonary disease vs. edema. -pulm following lethargy/weakness: -head ct w/o acute findings. likely 2/2 to aforementioned acute illnesses. htn: -bp stable here, off anti-hypertensives. est c.c. time in mgmt 35 min
[2016-03-13] MEDS: PANTOPRAZOLE 40 MG TABLET (FP) PO SCH (09:29)
[2016-03-13] MEDS: ACETAMINOPHEN 325 MG TABLET (FP) PO PRN (09:29)
[2016-03-13] MEDS: COLCHICINE 0.6 MG TABLET (FP) PO SCH ×2 (09:30→22:11)
[2016-03-13] MEDS: POLYETHYLENE GLYCOL 3350 119 GM BTL PO SCH (09:31)
[2016-03-13] MEDS ORDERED: ALBUTEROL SO4 2.5/IPRATROPIUM 0.5 INH SOL 3 ML VIAL.NEB. NEB PRN (11:57)
--- NOTE | 2016-03-13 12:00 | PN ---
Progress Note, Physician History of Present Illness: no issues overnight patient has worsening cough non productive - Current Medication List Current Medications: Active Medications Acetaminophen (Tylenol -) 650 mg PO Q6H PRN PRN Reason: FEVER OR PAIN Last Admin: 03/13/16 09:29 Dose: 650 mg Albuterol/Ipratropium (Duoneb -) 1 amp NEB Q6H PRN PRN Reason: SHORTNESS OF BREATH Colchicine (Colcrys -) 0.6 mg PO BID [facility] Last Admin: 03/13/16 09:30 Dose: 0.6 mg Indomethacin (Indocin -) 50 mg PO TID [facility] Last Admin: 03/13/16 06:01 Dose: 50 mg Pantoprazole Sodium (Protonix -) 40 mg PO DAILY [facility] Last Admin: 03/13/16 09:29 Dose: 40 mg Polyethylene Glycol (Miralax (For Daily Use) -) 17 gm PO DAILY [facility] Last Admin: 03/13/16 09:31 Dose: 17 grams - Objective Vital Signs: Vital Signs Temperature 98.2 F 03/13/16 10:00 Pulse Rate 80 03/13/16 10:00 Respiratory Rate 20 03/13/16 10:00 Blood Pressure 114/47 03/13/16 10:00 O2 Sat by Pulse Oximetry (%) 95 03/13/16 10:48 Constitutional: Yes: Well Nourished, No Distress, Calm, Thin Eyes: Yes: Other (bilateral contusion of eyes improving) Neck: Yes: Trachea Midline Cardiovascular: Yes: Regular Rate and Rhythm, Other (no chest wall tenderness increased cheat pain with movement) +hepatojugular reflux Respiratory: Yes: bilateral rhonchi Gastrointestinal: Yes: WNL, Normal Bowel Sounds, Soft Extremities: Yes: WNL Edema: No Integumentary: Yes: Other (large cauliflower fleshy/red like growth of right singh) Neurological: Yes: Alert, Oriented, Cran Nerves II-XII Intact ...Motor Strength: WNL Labs: CBC, BMP 03/13/16 05:00 03/13/16 05:00 INR, PTT INR 1.20 (0.82-1.09) H 03/13/16 05:00 Assessment/Plan 75F with HTN admitted with nausea vomiting weakness and anorexia found to have a pericardial effusion on echo and CT scan transferred to ICU for further monitoring. Spoke to granddaughter who would like to be aggressive about her treatment. They would now like a pericardial window. they wants a work up for malignancy and they would like skin and bone biopsies Pericardial effusion:hemodynamically stable: possible effusion could be from recent viral infection no clinical evidence of pericardial tampnade BP stable No JVD no muffled heart sounds CTA chest negative for PE CT surgery consult appreciated Nephrology consult appreciated hold norvasc per cardiology fluid bolus PRN hypotension [facility] contacted for imaging studies show lytic lesion on head CT and spinal XR no beta blockers will give 20 lasix IV for light diuresis continue indomethacin continue colchicine repeat echo is unchanged systolic CHF: newly diagnosed on echo mod-severe decreased LEVF, inferior wall hypokinesis, normal right ventricular function, mild eft atrial enlargement, mild mitral regurg/tricuspid regurg, moderate pericardial effusion, possible impending tamponade based on right atrial wall collapse Cardiology consult appreciated dieurese with 20mg IVP lasix Hypoxia: imroved Patient saturating well in ICU on nasal cannula CTA chest negative for PE HTN: Controlled for now hold norvasc per cardiology for now mechanical fall: no issues at this time repeat head CT stable Skin lesion likely malignancy: likely some kind of benign or malignant growth possible patient has other malignancy Granddaughter would like it biopsied will do bone scan Proteinuria: Nephrology consult appreciated FEN: Stop IVF no electrolyte abnormalities Reg diet PPx: HSQ SCD No Gi PPx indicated PT consult Patient seen and case discussed with Dr. Temple
--- NOTE | 2016-03-13 12:01 | PN ---
Teaching Attending Note Name of Resident: Dajuan Gerber ATTENDING PHYSICIAN STATEMENT I saw and evaluated the patient. I reviewed the resident's note and discussed the case with the resident. I agree with the resident's findings and plan as documented. SUBJECTIVE: Pt seen and examined in the ICU. Lying comfortably supine. Hemodynamics have been stable. Per renal who spoke to granddaughter in [place], they wish to proceed with diagnostic/therapeutic procedures. OBJECTIVE: Last Vital Signs Temp Pulse Resp BP Pulse Ox 98.2 F 80 20 114/47 95 03/13/16 10:00 03/13/16 10:00 03/13/16 10:00 03/13/16 10:00 03/13/16 10:48 Intake & Output 03/10/16 03/11/16 03/12/16 03/13/16 23:59 23:59 23:59 23:59 Intake Total 220 1178 1368 504 Output Total 620 750 800 200 Balance -400 428 568 304 Weight 110 lb 109 lb 11.2 oz 112 lb 6.972 oz 115 lb 8.356 oz Gen: NAD at rest HEENT: multiple ecchymotic areas Heart: RRR Lung: bibasilar rhonchi, wheezes Abd: soft, nontender Ext: no edema CBC, BMP 03/13/16 05:00 03/13/16 05:00 Active Medications Acetaminophen (Tylenol -) 650 mg PO Q6H PRN PRN Reason: FEVER OR PAIN Last Admin: 03/13/16 09:29 Dose: 650 mg Albuterol/Ipratropium (Duoneb -) 1 amp NEB Q6H PRN PRN Reason: SHORTNESS OF BREATH Colchicine (Colcrys -) 0.6 mg PO BID [facility] Last Admin: 03/13/16 09:30 Dose: 0.6 mg Indomethacin (Indocin -) 50 mg PO TID [facility] Last Admin: 03/13/16 06:01 Dose: 50 mg Pantoprazole Sodium (Protonix -) 40 mg PO DAILY [facility] Last Admin: 03/13/16 09:29 Dose: 40 mg Polyethylene Glycol (Miralax (For Daily Use) -) 17 gm PO DAILY [facility] Last Admin: 03/13/16 09:31 Dose: 17 grams ASSESSMENT AND PLAN: Pericardial Effusion Early Cardiac Tamponade LV Systolic Dysfunction Hypoxia HTN Dementia r/o Malignancy - will clarify goals of care and diagnostic procedures with granddaughter - if confirmed, CTS f/u for pericardial window - obtain bone scan - send SPEP/UPEP - continue empiric colchicine, indomethacin - d/c IVF - would give lasix 20mg IVP and assess response as clinical exam and CXR showing increasing congestion - monitor urine output, creatinine - DVT prophylaxis
[2016-03-13] MEDS ORDERED: FUROSEMIDE 40 MG/4 ML INJECTABLE VIAL IVPUSH ONE (12:49)
--- NOTE | 2016-03-13 13:52 | PN ---
Physical Exam: SUBJECTIVE: Patient seen and examined OBJECTIVE: Vital Signs Period Temp Pulse Resp BP Sys/Sanford Pulse Ox Last 24 Hr 98 F-98.2 F 60-88 16-22 94-143/40-92 95-97 GENERAL: The patient is awake, alert. HEAD: Extensive bilateral periorbital ecchymoses, laceration w/sutures to forehead, facial bruising in various stages of healing EYES: PERRL, extraocular movements intact, sclera anicteric, conjunctiva clear. No ptosis. LUNGS: Bibasilar crackles; productive cough HEART: Regular rate and rhythm, S1, S2 with pericardial rub ABDOMEN: Soft, nontender, nondistended, normoactive bowel sounds, no guarding, no rebound, no hepatosplenomegaly, no masses. EXTREMITIES: 2+ pulses, warm, well-perfused, no edema. 4cm tumorous growth RLE. Large RUE ecchymosis. NEUROLOGICAL: Cranial nerves II through XII grossly intact. Normal speech, gait not observed. Laboratory Results - last 24 hr 03/13/16 03/13/16 03/13/16 05:00 05:00 05:00 WBC 6.0 RBC 3.99 Hgb 12.3 Hct 37.9 MCV 94.9 MCHC 32.6 RDW 16.9 H Plt Count 190 D MPV 9.8 INR 1.20 H PTT (Actin FS) 27.0 Sodium 140 Potassium 4.2 Chloride 103 Carbon Dioxide 32 Anion Gap 5 L BUN 17 Creatinine 0.5 L Creat Clearance w eGFR > 60 Random Glucose 122 H Calcium 8.1 L Phosphorus 2.6 Magnesium 2.1 Total Bilirubin 0.6 D AST 14 L D ALT 22 Alkaline Phosphatase 80 Total Protein 5.8 L Albumin 2.6 L Active Medications Generic Name Dose Route Start Last Admin Trade Name Freq PRN Reason Stop Dose Admin Acetaminophen 650 mg 03/11/16 10:54 03/13/16 09:29 Tylenol - PO 650 mg Q6H PRN Administration FEVER OR PAIN Albuterol/Ipratropium 1 amp 03/13/16 11:57 Duoneb - NEB Q6H PRN SHORTNESS OF BREATH Colchicine 0.6 mg 03/10/16 22:00 03/13/16 09:30 Colcrys - PO 0.6 mg BID JUAN Administration Indomethacin 50 mg 03/10/16 14:30 03/13/16 06:01 Indocin - PO 50 mg TID JUAN Administration Pantoprazole Sodium 40 mg 03/10/16 15:00 03/13/16 09:29 Protonix - PO 40 mg DAILY JUAN Administration Polyethylene Glycol 17 gm 03/11/16 14:00 03/13/16 09:31 Miralax (For Daily Use) - PO 17 grams DAILY JUAN Administration ASSESSMENT/PLAN: 75 year-old female with PMH of HTN, [place] x2, multiple falls (most recent on ). Admitted for moderate pericardial effusion. Moderate pericardial effusion Severe sytolic heart failure --03/12/16 Echo with little change from 03/09: LV function moderately to severely reduced, moderate to severe global hypokinesis; RV normal; mild MR, mild TR, mild to moderate PI, moderate pericardial effusion, late diastolic collapse of RA --etiology of effusion not clear: viral jose m/adi carditis v. bacterial v. malignancy; for now, business development engineer treating as viral pericarditis with colchicine and indomethacin --hemodynamically stable --CT surgery following, no immediate indication for window --no BB, no ACEI, no diuretics Chest pain --troponins neg x 3 Acute hypoxia, improved --satting 96% on 3L NC --CTA negative for PE Soft tissue facial injuries s/p mechanical fall --was seen at [facility], records reviewed, no acute fractures r/o malignancy --imaging from [facility] showed lytic lesions throughout the calvarium and the cervical spine; also with tumorous growth on RLE --family wants to take patient back to [place] for further workup F/E/N Fluids: PO intake adequate Electrolyes: replete as indicated Nutrition: regular diet DVT prophylaxis: hold all chemical anticoagulation given pericardial effusion; SCDs; oob, ambulation Dispo: continues to require inpatient care. Full Code. Visit type - Emergency Visit Emergency Visit: Yes ED Registration Date: 03/09/16 Care time: The patient presented to the Emergency Department on the above date and was hospitalized for further evaluation of their emergent condition. - New Patient This patient is new to me today: No - Critical Care Critical Care patient: Yes Total Critical Care Time (in minutes): 35 Critical Care Statement: The care of this patient involved high complexity decision making to prevent further life threatening deterioration of the patient 's condition and/or to evalute & treat vital organ system(s) failure or risk of failure.
--- NOTE | 2016-03-13 17:26 | PN ---
Progress Note, Physician History of Present Illness: Pt seen and examined at bedside. She appears comfortable. - Current Medication List Current Medications: Active Medications Acetaminophen (Tylenol -) 650 mg PO Q6H PRN PRN Reason: FEVER OR PAIN Last Admin: 03/13/16 09:29 Dose: 650 mg Albuterol/Ipratropium (Duoneb -) 1 amp NEB Q6H PRN PRN Reason: SHORTNESS OF BREATH Colchicine (Colcrys -) 0.6 mg PO BID [facility] Last Admin: 03/13/16 09:30 Dose: 0.6 mg Indomethacin (Indocin -) 50 mg PO TID [facility] Last Admin: 03/13/16 14:33 Dose: 50 mg Pantoprazole Sodium (Protonix -) 40 mg PO DAILY [facility] Last Admin: 03/13/16 09:29 Dose: 40 mg Polyethylene Glycol (Miralax (For Daily Use) -) 17 gm PO DAILY [facility] Last Admin: 03/13/16 09:31 Dose: 17 grams - Objective Vital Signs: Vital Signs Temperature 98.2 F 03/13/16 10:00 Pulse Rate 80 03/13/16 12:00 Respiratory Rate 20 03/13/16 12:00 Blood Pressure 122/71 03/13/16 12:00 O2 Sat by Pulse Oximetry (%) 95 03/13/16 10:48 Constitutional: Yes: Calm Eyes: Yes: Conjunctiva Clear HENT: Yes: Atraumatic Neck: Yes: Supple Cardiovascular: Yes: S1, S2 Respiratory: Yes: On Nasal O2, Rhonchi Gastrointestinal: Yes: Soft Musculoskeletal: Yes: Muscle Weakness Edema: No Integumentary: Yes: Other (exophytic lesion on leg) Neurological: Yes: Oriented Labs: CBC, BMP 03/13/16 05:00 03/13/16 05:00 INR, PTT INR 1.20 (0.82-1.09) H 03/13/16 05:00 - ....Imaging Chest X-ray: Report Reviewed Problem List - Problems (1) Hypoxia Code(s): R09.02 - HYPOXEMIA (2) Lethargy Code(s): R53.83 - OTHER FATIGUE (3) Pericardial effusion Code(s): I31.3 - PERICARDIAL EFFUSION (NONINFLAMMATORY) (4) Proteinuria Code(s): R80.9 - PROTEINURIA, UNSPECIFIED (5) Hypertension Code(s): I10 - ESSENTIAL (PRIMARY) HYPERTENSION (6) Skin cancer Code(s): C44.90 - UNSPECIFIED MALIGNANT NEOPLASM OF SKIN, UNSPECIFIED Assessment/Plan Current Medications Generic Name Dose Route Start Last Admin Trade Name Freq PRN Reason Stop Dose Admin Acetaminophen 650 mg 03/11/16 10:54 03/13/16 09:29 Tylenol - PO 650 mg Q6H PRN Administration FEVER OR PAIN Albuterol/Ipratropium 1 amp 03/13/16 11:57 Duoneb - NEB Q6H PRN SHORTNESS OF BREATH Colchicine 0.6 mg 03/10/16 22:00 03/13/16 09:30 Colcrys - PO 0.6 mg BID JUAN Administration Indomethacin 50 mg 03/10/16 14:30 03/13/16 14:33 Indocin - PO 50 mg TID JUAN Administration Pantoprazole Sodium 40 mg 03/10/16 15:00 03/13/16 09:29 Protonix - PO 40 mg DAILY JUAN Administration Polyethylene Glycol 17 gm 03/11/16 14:00 03/13/16 09:31 Miralax (For Daily Use) - PO 17 grams DAILY JUAN Administration Impression 1. pericardial effusion 2. hypoxia 3. proteinuria 4. HTN 5. skin cancer 6. congestion on cxr 7. s/p fall and laceration to head Plan - agree with gentle diruesis - re-evaluate diuretics daily - echo does not show much change - discussed with pts family - paricardial window - monitor in ICU - will follow Dr Ruth
[2016-03-13] MEDS ORDERED: PT OWN MED DRAWER 7, Y5N ONE (22:07)
[2016-03-14 05:48] LABS: MCH 30.6 pg (25.7-33.7); MCHC 32.1 g/dl (32.0-36.0); MEAN CELL VOLUME 95.3 fl (80-96); MEAN PLT VOLUME 9.4 fl (7.5-11.1); PLATELET COUNT 200 K/MM3 (134-434); RDW 17.2 % (11.6-15.6); WHITE BLOOD COUNT 5.5 K/mm3 (4.0-10.0)
[2016-03-14 06:21] LABS: ALBUMIN 2.8 g/dl (3.4-5.0); ALK PHOS 87 U/L (45-117); ANION GAP 9 (8-16); BILIRUBIN,TOTAL 0.6 mg/dL (0.2-1.0); CALCIUM 8.4 mg/dL (8.5-10.1); CO2 32 mmol/L (21-32); CREATININE 0.6 mg/dL (0.55-1.02); GLUCOSE,RANDOM 109 mg/dL (74-106); MAGNESIUM 2.1 mg/dL (1.8-2.4); PHOSPHOROUS 3.3 mg/dL (2.5-4.9); SGOT/AST 14 U/L (15-37); SGPT/ALT 21 U/L (12-78); TOT PROT 6.1 g/dl (6.4-8.2)
[2016-03-14] MEDS: INDOMETHACIN 50 MG CAPSULE PO SCH ×3 (07:34→21:50)
[2016-03-14] MEDS ORDERED: PT OWN MED DRAWER 7, Y5N ONE ×3 (08:59→21:47)
[2016-03-14] MEDS: PANTOPRAZOLE 40 MG TABLET (FP) PO SCH (09:06)
[2016-03-14] MEDS: POLYETHYLENE GLYCOL 3350 119 GM BTL PO SCH (09:06)
[2016-03-14] MEDS: COLCHICINE 0.6 MG TABLET (FP) PO SCH ×2 (11:17→21:50)
--- NOTE | 2016-03-14 12:08 | PN ---
Progress Note (short form) - Note Progress Note: s: no turkish; daughter here translating; pt feels general weakness and fatigue. no cp or sob. mild dizziness o: Vital Signs Period Temp Pulse Resp BP Sys/Sanford Pulse Ox Last 24 Hr 98.2 F-99 F 68-90 18-22 110-141/51-95 95-95 Constitutional: Yes: No Distress, Calm Eyes: No: Sclera Icterus Cardiovascular: Yes: Regular Rate and Rhythm, no jvd, S1, S2, Other (PMI non diplaced). No: Gallop, Murmur, Rub Respiratory: Yes: cta bl No: Accessory Muscle Use, Rales, Wheezes Gastrointestinal: Yes: Normal Bowel Sounds, Soft. No: Tenderness Extremities: No: Cold Edema: No Integumentary: No: Jaundice diaphoresis Neurological: Yes: Alert. No: Seizure Psychiatric: No: Agitated Current Medications Generic Name Dose Route Start Last Admin Trade Name Freq PRN Reason Stop Dose Admin Acetaminophen 650 mg 03/11/16 10:54 03/13/16 09:29 Tylenol - PO 650 mg Q6H PRN Administration FEVER OR PAIN Albuterol/Ipratropium 1 amp 03/13/16 11:57 Duoneb - NEB Q6H PRN SHORTNESS OF BREATH Colchicine 0.6 mg 03/10/16 22:00 03/14/16 11:17 Colcrys - PO 0.6 mg BID JUAN Administration Indomethacin 50 mg 03/10/16 14:30 03/14/16 07:34 Indocin - PO 50 mg TID JUAN Administration Pantoprazole Sodium 40 mg 03/10/16 15:00 03/14/16 09:06 Protonix - PO 40 mg DAILY JUAN Administration Polyethylene Glycol 17 gm 03/11/16 14:00 03/14/16 09:06 Miralax (For Daily Use) - PO 17 grams DAILY JUAN Administration Zinc Acetate/Diphenhydramine 1 applic 03/14/16 10:00 03/14/16 11:30 Benadryl 2% Cream TP 1 applic BID JUAN Administration Laboratory Last Values WBC 5.5 K/mm3 (4.0-10.0) 03/14/16 05:00 RBC 4.03 M/mm3 (3.60-5.2) 03/14/16 05:00 Hgb 12.3 GM/dL (10.7-15.3) 03/14/16 05:00 Hct 38.4 % (32.4-45.2) 03/14/16 05:00 MCV 95.3 fl (80-96) 03/14/16 05:00 MCHC 32.1 g/dl (32.0-36.0) 03/14/16 05:00 RDW 17.2 % (11.6-15.6) H 03/14/16 05:00 Plt Count 200 K/MM3 (134-434) 03/14/16 05:00 MPV 9.4 fl (7.5-11.1) 03/14/16 05:00 Neutrophils % 64.1 % (42.8-82.8) 03/12/16 05:00 Lymphocytes % 19.4 % (8-40) D 03/12/16 05:00 Monocytes % 12.7 % (3.8-10.2) H 03/12/16 05:00 Eosinophils % 3.5 % (0-4.5) D 03/12/16 05:00 Basophils % 0.3 % (0-2.0) 03/12/16 05:00 Platelet Estimate Slt decreased (NORMAL) 03/09/16 19:55 Polychromasia 1+ 03/09/16 19:55 Hypochromic-Microcytic 1+ 03/09/16 19:55 Anisocytosis 1+ 03/09/16 19:55 Macrocytosis 1+ 03/09/16 19:55 Morphology Comment Slide scanned 03/09/16 19:55 ESR 53 mm/hr (0-30) H 03/11/16 05:20 INR 1.20 (0.82-1.09) H 03/13/16 05:00 PTT (Actin FS) 27.0 SECONDS (26.9-34.4) 03/13/16 05:00 Puncture Site Left radial 03/09/16 12:15 ABG pH 7.44 (7.35-7.45) 03/09/16 12:15 ABG pCO2 at Pt Temp 42.5 mmHg (35-45) 03/09/16 12:15 ABG pO2 at Pt Temp 72.9 mmHg (70-100) 03/09/16 12:15 ABG HCO3 28.4 meq/L (22-26) H 03/09/16 12:15 ABG O2 Sat (Measured) 95.1 % (90-98.9) 03/09/16 12:15 ABG O2 Content 17.7 % vol (15-22) 03/09/16 12:15 ABG Base Excess 4.2 meq/l (-2-2) H 03/09/16 12:15 Obdulio Test Positive 03/09/16 12:15 O2 Delivery Device Ventimask 03/09/16 12:15 Oxygen Flow Rate 40% 03/09/16 12:15 PEEP 0.0 cmH2O 03/09/16 12:15 Sodium 145 mmol/L (136-145) 03/14/16 05:00 Potassium 4.7 mmol/L (3.5-5.1) 03/14/16 05:00 Chloride 104 mmol/L (98-107) 03/14/16 05:00 Carbon Dioxide 32 mmol/L (21-32) 03/14/16 05:00 Anion Gap 9 (8-16) 03/14/16 05:00 BUN 20 mg/dL (7-18) H 03/14/16 05:00 Creatinine 0.6 mg/dL (0.55-1.02) 03/14/16 05:00 Creat Clearance w eGFR > 60 (>60) 03/14/16 05:00 Random Glucose 109 mg/dL (74-106) H 03/14/16 05:00 Hemoglobin A1c % 5.8 % (4.8-6.0) 03/09/16 06:30 Calcium 8.4 mg/dL (8.5-10.1) L 03/14/16 05:00 Phosphorus 3.3 mg/dL (2.5-4.9) D 03/14/16 05:00 Magnesium 2.1 mg/dL (1.8-2.4) 03/14/16 05:00 Total Bilirubin 0.6 mg/dL (0.2-1.0) 03/14/16 05:00 AST 14 U/L (15-37) L 03/14/16 05:00 ALT 21 U/L (12-78) 03/14/16 05:00 Alkaline Phosphatase 87 U/L (45-117) 03/14/16 05:00 Creatine Kinase 30 IU/L (26-192) 03/09/16 10:36 Troponin I < 0.02 ng/ml (0.00-0.05) 03/09/16 10:36 C-Reactive Protein 8.4 MG/DL (0.00-0.3) H 03/11/16 05:20 B-Natriuretic Peptide 834.34 pg/ml (5-450) H 03/08/16 19:38 Total Protein 6.1 g/dl (6.4-8.2) L 03/14/16 05:00 Albumin 2.8 g/dl (3.4-5.0) L 03/14/16 05:00 Vitamin B12 253 pg/ml (180-914) 03/09/16 06:30 TSH 0.13 uIU/ml (0.358-3.74) L 03/11/16 05:20 Urine Color [place] 03/08/16 21:10 Urine Appearance Clear 03/08/16 21:10 Urine pH 5.0 (5.0-8.0) 03/08/16 21:10 Ur Specific [place] 1.029 (1.001-1.035) 03/08/16 21:10 Urine Protein 1+ (NEGATIVE) H 03/08/16 21:10 Urine Glucose (UA) 1+ (NEGATIVE) H 03/08/16 21:10 Urine Ketones Negative (NEGATIVE) 03/08/16 21:10 Urine Blood Negative (NEGATIVE) 03/08/16 21:10 Urine Nitrite Negative (NEGATIVE) 03/08/16 21:10 Urine Bilirubin Negative (NEGATIVE) 03/08/16 21:10 Urine Urobilinogen 2.0 e.u/dl E.U./dl (0.2-1.0) H 03/08/16 21:10 Ur Leukocyte Esterase Negative (NEGATIVE) 03/08/16 21:10 Urine RBC 1 /hpf (0-3) 03/08/16 21:10 Urine WBC 2 /hpf (3-5) 03/08/16 21:10 Urine Mucus Few 03/08/16 21:10 U Random Total Protein 127 mg/dl (5-11.9) H 03/10/16 13:25 Urine Creatinine 162.0 mg/dL 03/10/16 13:25 Protein/Creatinin Ratio 0.78 MG/DL 03/10/16 13:25 tele: sr, pvcs cxr: clear lungs CTA: no PE. Increased interstitial markings and atelectasis at bases Echo 03/09/16/: mod-sev dec lvef, inf wall hk, nl rv, mild lae, mild mr/tr, moderate pericardial eff, ?impending tamponade based on ra wall collapse Repeat echo 03/12/16: mild con LVH. mod-sev depressed LV sys func (global), 1+ MR/TR, effusion unchanged, still with early diastolic RA collapse. est cct 33 mins a/p: 75 f (she is 83 according to family) with hx htn, h/o AR x 2, dementia and possible recent diagnosis of cancer (unknown type), here with lethargy, weakness found to have systolic cardiomyopathy and pericardial effusion. pericardial effusion, ? acute pericarditis: -reviewed echo, there is a moderate circumferential pericardial eff present but no signs of tamponade. clinically no signs of tamponade as well. -CRP and ESR elevated but ? sec to malignancy; has no friction rub present and none previously documented on exam in prior notes; ecg with mild nonsp ST-Ts-- cont indocin 50 TID (creat stable) but may need to d/c if intolerance, and no findings convincing for acute pericarditis -03/13: Size of effusion and RA collapse unchanged 03/12 despite IVF resuscitation and treatment of possible pericarditis. Now with signs of worsening volume overload (increased pleural effusion). Currently off IVF. Agree with gentle diuresis with close monitoring of hemodynamics. -03/14: remains hemodynamically stable but pericardial effusion persists and question of malignancy remains. family is agreeable for pericardial window with plans to be done today or tomorrow. syst chf: -echo here shows mod-sev decreased lvef with inferior hypokinesis, patient with h/o prior AR. -03/12: clinically no definite chf, exam equiovocal for JVD--monitor closely with IVF. - 03/13: Now off IVF. CXR with new rt pleural effusion. No change in effusion size or hemodynamics with IVF. gentle diuresis as mentioned above. Strict I/O' s, daily weights. -03/14: cxr clear, no signs chf. cont to hold lasix and ivfs for now -no signs acs, ce's negx3, ecg w/o ischemic changes or significant q waves - patient with frequent ectopy on tele 03/10, initiated low dose short acting metoprolol 03/11, but bp dropped slightly and patient with orthostatic symptoms -> stopped hypoxia: -does not appear to be due to chf -CTA with increased interstitial markings and by review a dilated PA. ? underlying pulmonary disease -pulm following lethargy/weakness: -head ct w/o acute findings. likely 2/2 to aforementioned acute illnesses. htn: -bp stable here, off anti-hypertensives.
--- NOTE | 2016-03-14 12:34 | PN ---
Teaching Attending Note Name of Resident: Dajuan Gerber ATTENDING PHYSICIAN STATEMENT I saw and evaluated the patient. I reviewed the resident's note and discussed the case with the resident. I agree with the resident's findings and plan as documented. SUBJECTIVE: Pt seen and examined in the ICU. Denies shortness of breath or chest pain. Developed sacral rash and rash from tape contact. No fevers. OBJECTIVE: Last Vital Signs Temp Pulse Resp BP Pulse Ox 98.3 F 80 22 131/58 95 03/14/16 07:21 03/14/16 12:22 03/14/16 12:22 03/14/16 12:22 03/14/16 07:26 Intake & Output 03/11/16 03/12/16 03/13/16 03/14/16 23:59 23:59 23:59 23:59 Intake Total 1178 1368 878 350 Output Total 750 800 500 Balance 428 568 378 350 Weight 109 lb 11.2 oz 112 lb 6.972 oz 115 lb 8.356 oz 110 lb 14.28 oz Gen: NAD at rest Heart: RRR Lung: scattered rhonchi Abd: soft, nontender Ext: no edema CBC, BMP 03/14/16 05:00 03/14/16 05:00 Active Medications Acetaminophen (Tylenol -) 650 mg PO Q6H PRN PRN Reason: FEVER OR PAIN Last Admin: 03/13/16 09:29 Dose: 650 mg Albuterol/Ipratropium (Duoneb -) 1 amp NEB Q6H PRN PRN Reason: SHORTNESS OF BREATH Colchicine (Colcrys -) 0.6 mg PO BID [facility] Last Admin: 03/14/16 11:17 Dose: 0.6 mg Indomethacin (Indocin -) 50 mg PO TID [facility] Last Admin: 03/14/16 07:34 Dose: 50 mg Pantoprazole Sodium (Protonix -) 40 mg PO DAILY [facility] Last Admin: 03/14/16 09:06 Dose: 40 mg Polyethylene Glycol (Miralax (For Daily Use) -) 17 gm PO DAILY [facility] Last Admin: 03/14/16 09:06 Dose: 17 grams Zinc Acetate/Diphenhydramine (Benadryl 2% Cream) 1 applic TP BID [facility] Last Admin: 03/14/16 11:30 Dose: 1 applic ASSESSMENT AND PLAN: Pericardial Effusion Early Cardiac Tamponade LV Systolic Dysfunction Hypoxia HTN Dementia r/o Malignancy - for pericardial window in AM - obtain bone scan - f/u SPEP/UPEP - continue empiric colchicine, indomethacin - lasix as needed - monitor urine output, creatinine - DVT prophylaxis
--- NOTE | 2016-03-14 13:07 | PN ---
Progress Note (short form) - Note Progress Note: PRE-OP NOTE Dx: Pericardial effusion Planned procedure: Bronchoscopy, subxiphoid pericardial window Surgeon: Jonh Rasheed Last Vital Signs Temp Pulse Resp BP Pulse Ox 98.3 F 80 22 131/58 95 03/14/16 07:21 03/14/16 12:22 03/14/16 12:22 03/14/16 12:22 03/14/16 07:26 CBC, BMP 03/14/16 05:00 03/14/16 05:00 INR, PTT INR 1.20 (0.82-1.09) H 03/13/16 05:00 CXR 03/12: Large heart. Pericadial effusion. No infiltrates. Echo report reviewed. Problem List - Problems (1) Pericardial effusion Assessment/Plan: Scheduled for pericardial window at 13:00hrs 03/15/16 NPO after midnight except po meds Type and screen ordered 2 units PRBC on hold for OR ordered GI / DVT ppx f/u Medical and cardiac clearance Code(s): I31.3 - PERICARDIAL EFFUSION (NONINFLAMMATORY)
--- NOTE | 2016-03-14 13:19 | PN ---
Progress Note, Physician History of Present Illness: Pt seen and examined at bedside. She appears comfortable. - Current Medication List Current Medications: Active Medications Acetaminophen (Tylenol -) 650 mg PO Q6H PRN PRN Reason: FEVER OR PAIN Last Admin: 03/13/16 09:29 Dose: 650 mg Albuterol/Ipratropium (Duoneb -) 1 amp NEB Q6H PRN PRN Reason: SHORTNESS OF BREATH Colchicine (Colcrys -) 0.6 mg PO BID [facility] Last Admin: 03/14/16 11:17 Dose: 0.6 mg Indomethacin (Indocin -) 50 mg PO TID [facility] Last Admin: 03/14/16 07:34 Dose: 50 mg Pantoprazole Sodium (Protonix -) 40 mg PO DAILY [facility] Last Admin: 03/14/16 09:06 Dose: 40 mg Polyethylene Glycol (Miralax (For Daily Use) -) 17 gm PO DAILY [facility] Last Admin: 03/14/16 09:06 Dose: 17 grams Zinc Acetate/Diphenhydramine (Benadryl 2% Cream) 1 applic TP BID [facility] Last Admin: 03/14/16 11:30 Dose: 1 applic - Objective Vital Signs: Vital Signs Temperature 98.3 F 03/14/16 07:21 Pulse Rate 80 03/14/16 12:22 Respiratory Rate 22 03/14/16 12:22 Blood Pressure 131/58 03/14/16 12:22 O2 Sat by Pulse Oximetry (%) 95 03/14/16 07:26 Constitutional: Yes: Calm Neck: Yes: Supple Cardiovascular: Yes: S1, S2 Respiratory: Yes: CTA Bilaterally Gastrointestinal: Yes: Normal Bowel Sounds, Soft Genitourinary: Yes: WNL Musculoskeletal: Yes: Muscle Weakness Edema: No Neurological: Yes: Oriented Psychiatric: Yes: Oriented Labs: CBC, BMP 03/14/16 05:00 03/14/16 05:00 INR, PTT INR 1.20 (0.82-1.09) H 03/13/16 05:00 Problem List - Problems (1) Hypoxia Code(s): R09.02 - HYPOXEMIA (2) Lethargy Code(s): R53.83 - OTHER FATIGUE (3) Pericardial effusion Code(s): I31.3 - PERICARDIAL EFFUSION (NONINFLAMMATORY) (4) Proteinuria Code(s): R80.9 - PROTEINURIA, UNSPECIFIED (5) Hypertension Code(s): I10 - ESSENTIAL (PRIMARY) HYPERTENSION (6) Skin cancer Code(s): C44.90 - UNSPECIFIED MALIGNANT NEOPLASM OF SKIN, UNSPECIFIED Assessment/Plan Current Medications Generic Name Dose Route Start Last Admin Trade Name Freq PRN Reason Stop Dose Admin Acetaminophen 650 mg 03/11/16 10:54 03/13/16 09:29 Tylenol - PO 650 mg Q6H PRN Administration FEVER OR PAIN Albuterol/Ipratropium 1 amp 03/13/16 11:57 Duoneb - NEB Q6H PRN SHORTNESS OF BREATH Colchicine 0.6 mg 03/10/16 22:00 03/14/16 11:17 Colcrys - PO 0.6 mg BID JUAN Administration Indomethacin 50 mg 03/10/16 14:30 03/14/16 07:34 Indocin - PO 50 mg TID JUAN Administration Pantoprazole Sodium 40 mg 03/10/16 15:00 03/14/16 09:06 Protonix - PO 40 mg DAILY JUAN Administration Polyethylene Glycol 17 gm 03/11/16 14:00 03/14/16 09:06 Miralax (For Daily Use) - PO 17 grams DAILY JUAN Administration Zinc Acetate/Diphenhydramine 1 applic 03/14/16 10:00 03/14/16 11:30 Benadryl 2% Cream TP 1 applic BID JUAN Administration Impression 1. pericardial effusion 2. hypoxia 3. proteinuria 4. HTN 5. skin cancer 6. congestion on cxr 7. s/p fall and laceration to head Plan - monitor bmp - case discussed with family - pt is going for the pericardial window tomorrow - gentle diuresis, fluids stopped - monitor in ICU - will follow Dr Ruth
--- NOTE | 2016-03-14 13:50 | PN ---
Progress Note, Physician History of Present Illness: no issues overnight patient has worsening cough non productive now has rash over limbs which look like old tape sites and maculopapular rash over lower back likely from contact dermatitis - Current Medication List Current Medications: Active Medications Acetaminophen (Tylenol -) 650 mg PO Q6H PRN PRN Reason: FEVER OR PAIN Last Admin: 03/13/16 09:29 Dose: 650 mg Albuterol/Ipratropium (Duoneb -) 1 amp NEB Q6H PRN PRN Reason: SHORTNESS OF BREATH Colchicine (Colcrys -) 0.6 mg PO BID [facility] Last Admin: 03/14/16 11:17 Dose: 0.6 mg Indomethacin (Indocin -) 50 mg PO TID [facility] Last Admin: 03/14/16 13:36 Dose: Not Given Pantoprazole Sodium (Protonix -) 40 mg PO DAILY [facility] Last Admin: 03/14/16 09:06 Dose: 40 mg Polyethylene Glycol (Miralax (For Daily Use) -) 17 gm PO DAILY [facility] Last Admin: 03/14/16 09:06 Dose: 17 grams Zinc Acetate/Diphenhydramine (Benadryl 2% Cream) 1 applic TP BID [facility] Last Admin: 03/14/16 11:30 Dose: 1 applic - Objective Vital Signs: Vital Signs Temperature 98.3 F 03/14/16 07:21 Pulse Rate 80 03/14/16 12:22 Respiratory Rate 22 03/14/16 12:22 Blood Pressure 131/58 03/14/16 12:22 O2 Sat by Pulse Oximetry (%) 95 03/14/16 07:26 Constitutional: Yes: Well Nourished, No Distress, Calm, Thin Eyes: Yes: Other (bilateral contusion of eyes improving) Neck: Yes: Trachea Midline Cardiovascular: Yes: Regular Rate and Rhythm, Other (no chest wall tenderness increased cheat pain with movement) +hepatojugular reflux Respiratory: Yes: CTAB Gastrointestinal: Yes: WNL, Normal Bowel Sounds, Soft Extremities: Yes: WNL Edema: No Integumentary: Yes: Other (large cauliflower fleshy/red like growth of right singh) Neurological: Yes: Alert, Oriented, Cran Nerves II-XII Intact ...Motor Strength: WNL Labs: CBC, BMP 03/14/16 05:00 03/14/16 05:00 INR, PTT INR 1.20 (0.82-1.09) H 03/13/16 05:00 Assessment/Plan 75F with HTN admitted with nausea vomiting weakness and anorexia found to have a pericardial effusion on echo and CT scan transferred to ICU for further monitoring. Spoke to granddaughter who would like to be aggressive about her treatment. They would now like a pericardial window. they wants a work up for malignancy and they would like skin and bone biopsies Pericardial effusion:hemodynamically stable: possible effusion could be from recent viral infection no clinical evidence of pericardial tampnade BP stable No JVD no muffled heart sounds CTA chest negative for PE CT surgery consult appreciated Nephrology consult appreciated hold norvasc per cardiology fluid bolus PRN hypotension [facility] contacted for imaging studies show lytic lesion on head CT and spinal XR no beta blockers continue indomethacin continue colchicine repeat echo is unchanged Diueresis significantly improved respiratory status of patient systolic CHF: newly diagnosed on echo mod-severe decreased LEVF, inferior wall hypokinesis, normal right ventricular function, mild eft atrial enlargement, mild mitral regurg/tricuspid regurg, moderate pericardial effusion, possible impending tamponade based on right atrial wall collapse Cardiology consult appreciated For pericardial window in AM SPEP/UPEP Hypoxia: imroved Patient saturating well in ICU on nasal cannula CTA chest negative for PE HTN: Controlled for now hold norvasc per cardiology for now mechanical fall: no issues at this time repeat head CT stable Skin lesion likely malignancy: likely some kind of benign or malignant growth possible patient has other malignancy Granddaughter would like it biopsied will do bone scan SPEP/UPEP Proteinuria: Nephrology consult appreciated FEN: Stop IVF no electrolyte abnormalities Reg diet npo past midnight PPx: HSQ SCD No Gi PPx indicated PT consult Patient seen and case discussed with Dr. Temple
--- NOTE | 2016-03-14 14:05 | PN ---
Progress Note (short form) - Note Progress Note: Subjective: The patient was seen and examined at the bedside, she is feeling better today. Discussed malignancy workup with Ron (daughter) who states her brother in [place] has known about cancer diagnosis for a "long time" and that she does NOT want any further biopsy and workup for malignancy For pericardial window tomorrow Current Medications Generic Name Dose Route Start Last Admin Trade Name Freq PRN Reason Stop Dose Admin Acetaminophen 650 mg 03/11/16 10:54 03/13/16 09:29 Tylenol - PO 650 mg Q6H PRN Administration FEVER OR PAIN Albuterol/Ipratropium 1 amp 03/13/16 11:57 Duoneb - NEB Q6H PRN SHORTNESS OF BREATH Colchicine 0.6 mg 03/10/16 22:00 03/14/16 11:17 Colcrys - PO 0.6 mg BID JUAN Administration Indomethacin 50 mg 03/10/16 14:30 03/14/16 13:36 Indocin - PO Not Given TID JUAN Pantoprazole Sodium 40 mg 03/10/16 15:00 03/14/16 09:06 Protonix - PO 40 mg DAILY JUAN Administration Polyethylene Glycol 17 gm 03/11/16 14:00 03/14/16 09:06 Miralax (For Daily Use) - PO 17 grams DAILY JUAN Administration Zinc Acetate/Diphenhydramine 1 applic 03/14/16 10:00 03/14/16 11:30 Benadryl 2% Cream TP 1 applic BID JUAN Administration Objective: Vital Signs Period Temp Pulse Resp BP Sys/[place]ford Pulse Ox Last 24 Hr 98.2 F-99 F 68-90 18-22 110-141/51-95 95-95 Physical Exam: General: NAD HEENT: B/l periorbital ecchymosis. Left forehead sutures with dried blood. No JVD Lungs: B/l scattered rhonchi Heart: RRR, S1S2 Abd: Soft, non-tender, non-distended. Normoactive bowel sounds Ext: RUE ecchymosis. RLE skin lesion CBCD WBC 5.5 K/mm3 (4.0-10.0) 03/14/16 05:00 RBC 4.03 M/mm3 (3.60-5.2) 03/14/16 05:00 Hgb 12.3 GM/dL (10.7-15.3) 03/14/16 05:00 Hct 38.4 % (32.4-45.2) 03/14/16 05:00 MCV 95.3 fl (80-96) 03/14/16 05:00 MCHC 32.1 g/dl (32.0-36.0) 03/14/16 05:00 RDW 17.2 % (11.6-15.6) H 03/14/16 05:00 Plt Count 200 K/MM3 (134-434) 03/14/16 05:00 MPV 9.4 fl (7.5-11.1) 03/14/16 05:00 CMP Sodium 145 mmol/L (136-145) 03/14/16 05:00 Potassium 4.7 mmol/L (3.5-5.1) 03/14/16 05:00 Chloride 104 mmol/L (98-107) 03/14/16 05:00 Carbon Dioxide 32 mmol/L (21-32) 03/14/16 05:00 Anion Gap 9 (8-16) 03/14/16 05:00 BUN 20 mg/dL (7-18) H 03/14/16 05:00 Creatinine 0.6 mg/dL (0.55-1.02) 03/14/16 05:00 Creat Clearance w eGFR > 60 (>60) 03/14/16 05:00 Random Glucose 109 mg/dL (74-106) H 03/14/16 05:00 Calcium 8.4 mg/dL (8.5-10.1) L 03/14/16 05:00 Total Bilirubin 0.6 mg/dL (0.2-1.0) 03/14/16 05:00 AST 14 U/L (15-37) L 03/14/16 05:00 ALT 21 U/L (12-78) 03/14/16 05:00 Alkaline Phosphatase 87 U/L (45-117) 03/14/16 05:00 Total Protein 6.1 g/dl (6.4-8.2) L 03/14/16 05:00 Albumin 2.8 g/dl (3.4-5.0) L 03/14/16 05:00 CARDIAC ENZYMES Creatine Kinase 30 IU/L (26-192) 03/09/16 10:36 Troponin I < 0.02 ng/ml (0.00-0.05) 03/09/16 10:36 Microbiology 03/08/16 19:15 Nasopharyngeal Swab Respiratory Virus Panel - Preliminary 03/08/16 21:10 Urine - Urine Clean Catch Urine Culture - Final NO GROWTH OBTAINED 03/08/16 19:15 Nasopharyngeal Swab Influenza Types A,B Antigen (ZEESHAN) - Final 03/08/16 19:15 Nasopharyngeal Swab - Final Assessment: This is a 75 year old female with PMHx of HTN, CT x2, hx of multiple falls (most recent on 03/05) who presented to the ED with decrease po intake, lethargy, dizziness and was admitted for further evaluation and management of her emergent condition. Plan: 1) Cardiology: Moderate pericardial effusion - Continue treatment for pericarditis per critical care team - Repeat ECHO unchanged from original, still with moderate pericardial effusion - No JVD - No rub on exam - For pericardial window tomorrow - Appreciate CT surgery consult - Appreciate critical care consult Chest pain - CTA chest negative for PE - Hx of CT x2 in the past - Trop x3 negative - No signs of ACS - Appreciate cardiology consult Systolic heart failure - Echo reviewed moderate to severe lvef with inferior wall hypokinesis - Will hold off on starting beta oc or marian-i given finding of pericardial effusion - Lasix given yesterday, will hold today - Appreciate cardiology consult 2) Pulm: Acute hypoxia - Improving - O2 via NC prn - CTA with no evidence of PE 3) Oncology: RLE skin lesion - Imaging from [place] with lytic lesions throughout the calvarium and the cervical spine. 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 - Long discussion with daughter today and she has declined all malignancy workup for the patient stating she would like to get her back to [place] as soon as possible - Will discontinue bone scan 4) MSK: S/p mechanical fall with facial injuries - No acute fractures per records from [facility] 6) F/E/N: - Regular diet - NPO after midnight 7) Prophylaxis: - Hold all chemical anticoagulation for pericardial window tomorrow 8) Dispo: - Requires ICU care CODE STATUS: FULL CODE Visit type - Emergency Visit Emergency Visit: Yes ED Registration Date: 03/09/16 Care time: The patient presented to the Emergency Department on the above date and was hospitalized for further evaluation of their emergent condition. - New Patient This patient is new to me today: No - Critical Care Critical Care patient: No
[2016-03-15 06:20] LABS: MCH 30.9 pg (25.7-33.7); MCHC 32.6 g/dl (32.0-36.0); MEAN PLT VOLUME 9.7 fl (7.5-11.1); PLATELET COUNT 211 K/MM3 (134-434); RDW 17.2 % (11.6-15.6); WHITE BLOOD COUNT 5.8 K/mm3 (4.0-10.0)
[2016-03-15] MEDS: INDOMETHACIN 50 MG CAPSULE PO SCH ×3 (06:36→22:23)
[2016-03-15 06:40] LABS: INR 1.16 (0.82-1.09); PROTHROMBIN TIME (PATIENT) 12.8 SEC (9.98-11.88)
[2016-03-15] MEDS: TRIAMCINOLONE ACET 0.025% CREAM 15 GM TUBE TP PRN ×2 (06:41→10:39)
[2016-03-15 06:42] LABS: ACTIVATED PTT 29.3 SECONDS (26.9-34.4)
[2016-03-15 07:06] LABS: ALBUMIN 2.8 g/dl (3.4-5.0); ANION GAP 1 (8-16); BILIRUBIN,TOTAL 0.7 mg/dL (0.2-1.0); CALCIUM 8.6 mg/dL (8.5-10.1); CO2 35 mmol/L (21-32); CREATININE 0.5 mg/dL (0.55-1.02); GLUCOSE,RANDOM 105 mg/dL (74-106); PHOSPHOROUS 3.5 mg/dL (2.5-4.9); TOT PROT 6.2 g/dl (6.4-8.2)
[2016-03-15 07:07] LABS: ALK PHOS 94 U/L (45-117); SGOT/AST 20 U/L (15-37); SGPT/ALT 22 U/L (12-78)
[2016-03-15] MEDS: PANTOPRAZOLE 40 MG TABLET (FP) PO SCH (10:37)
[2016-03-15] MEDS: COLCHICINE 0.6 MG TABLET (FP) PO SCH ×2 (10:39→22:23)
--- NOTE | 2016-03-15 10:45 | PN ---
Progress Note, Physician History of Present Illness: no issues overnight complains of itching now has rash over limbs which look like old tape sites and maculopapular rash over lower back likely from contact dermatitis - Current Medication List Current Medications: Active Medications Acetaminophen (Tylenol -) 650 mg PO Q6H PRN PRN Reason: FEVER OR PAIN Last Admin: 03/13/16 09:29 Dose: 650 mg Albuterol/Ipratropium (Duoneb -) 1 amp NEB Q6H PRN PRN Reason: SHORTNESS OF BREATH Colchicine (Colcrys -) 0.6 mg PO BID [facility] Last Admin: 03/15/16 10:39 Dose: 0.6 mg Diphenhydramine HCl (Benadryl Injection -) 25 mg IVPUSH Q6H-IV JUAN Indomethacin (Indocin -) 50 mg PO TID [facility] Last Admin: 03/15/16 06:36 Dose: 50 mg Pantoprazole Sodium (Protonix -) 40 mg PO DAILY [facility] Last Admin: 03/15/16 10:37 Dose: 40 mg Polyethylene Glycol (Miralax (For Daily Use) -) 17 gm PO DAILY [facility] Last Admin: 03/14/16 09:06 Dose: 17 grams Triamcinolone Acetonide (Aristocort 0.025% Cream -) 1 applic TP BID PRN PRN Reason: rash Last Admin: 03/15/16 10:39 Dose: 1 applic Zinc Acetate/Diphenhydramine (Benadryl 2% Cream) 1 applic TP BID [facility] Last Admin: 03/15/16 10:39 Dose: 1 applic - Objective Vital Signs: Vital Signs Temperature 97.2 F L 03/15/16 10:00 Pulse Rate 65 03/15/16 10:18 Respiratory Rate 22 03/15/16 10:00 Blood Pressure 141/57 03/15/16 10:00 O2 Sat by Pulse Oximetry (%) 95 03/15/16 10:18 Constitutional: Yes: Well Nourished, No Distress, Calm, Thin Eyes: Yes: Other (bilateral contusion of eyes improving) Neck: Yes: Trachea Midline Cardiovascular: Yes: Regular Rate and Rhythm, Other (no chest wall tenderness increased cheat pain with movement) +hepatojugular reflux Respiratory: Yes: +congestion + crackles Gastrointestinal: Yes: WNL, Normal Bowel Sounds, Soft Extremities: Yes: WNL Edema: No Integumentary: Yes: Other (large cauliflower fleshy/red like growth of right singh) rash over upper extremities where tape was placed maculopapular rash o Neurological: Yes: Alert, Oriented, Cran Nerves II-XII Intact ...Motor Strength: WNL Labs: CBC, BMP 03/15/16 05:20 03/15/16 05:20 INR, PTT INR 1.16 (0.82-1.09) H 03/15/16 05:20 Assessment/Plan 75F with HTN admitted with nausea vomiting weakness and anorexia found to have a pericardial effusion on echo and CT scan transferred to ICU for further monitoring. Spoke to granddaughter who would like to be aggressive about her treatment. They would now like a pericardial window. they wants a work up for malignancy and they would like skin and bone biopsies Pericardial effusion:hemodynamically stable: possible effusion could be from recent viral infection no clinical evidence of pericardial tampnade BP stable No JVD + Hepatojugular reflux no muffled heart sounds CTA chest negative for PE CT surgery consult appreciated Nephrology consult appreciated hold norvasc per cardiology fluid bolus PRN hypotension [facility] contacted for imaging studies show lytic lesion on head CT and spinal XR no beta blockers continue indomethacin continue colchicine repeat echo is unchanged Diueresis significantly improved respiratory status of patient systolic CHF: newly diagnosed on echo mod-severe decreased LEVF, inferior wall hypokinesis, normal right ventricular function, mild eft atrial enlargement, mild mitral regurg/tricuspid regurg, moderate pericardial effusion, possible impending tamponade based on right atrial wall collapse Cardiology consult appreciated For pericardial window today SPEP/UPEP Hypoxia: improved Patient saturating well in ICU on nasal cannula CTA chest negative for PE Rash: contact dermatitis benadryl IV Q6h PRN HTN: Controlled for now hold norvasc per cardiology for now mechanical fall: no issues at this time repeat head CT stable Skin lesion likely malignancy: likely some kind of benign or malignant growth possible patient has other malignancy Granddaughter would like it biopsied will do bone scan SPEP/UPEP Proteinuria: Nephrology consult appreciated FEN: Stop IVF no electrolyte abnormalities npo past midnight diet after OR PPx: HSQ SCD protonix PT consult Patient seen and case discussed with Dr. Temple
--- NOTE | 2016-03-15 11:01 | PN ---
Teaching Attending Note Name of Resident: Dajuan Gerber ATTENDING PHYSICIAN STATEMENT I saw and evaluated the patient. I reviewed the resident's note and discussed the case with the resident. I agree with the resident's findings and plan as documented. SUBJECTIVE: Pt seen and examined in the ICU. Feels weak today but denies shortness of breath or chest pain. No fevers overnight. OBJECTIVE: Last Vital Signs Temp Pulse Resp BP Pulse Ox 97.2 F L 65 22 141/57 95 03/15/16 10:00 03/15/16 10:18 03/15/16 10:00 03/15/16 10:00 03/15/16 10:18 Intake & Output 03/12/16 03/13/16 03/14/16 03/15/16 23:59 23:59 23:59 23:59 Intake Total 1368 878 950 100 Output Total 800 500 700 400 Balance 568 378 250 -300 Weight 112 lb 6.972 oz 115 lb 8.356 oz 110 lb 14.28 oz 111 lb 14.4 oz Gen: NAD at rest Heart: RRR Lung: scattered basilar rhonchi Abd: soft, nontender Ext: no edema Back: macular blanching rash, nontender CBC, BMP 03/15/16 05:20 03/15/16 05:20 Active Medications Acetaminophen (Tylenol -) 650 mg PO Q6H PRN PRN Reason: FEVER OR PAIN Last Admin: 03/13/16 09:29 Dose: 650 mg Albuterol/Ipratropium (Duoneb -) 1 amp NEB Q6H PRN PRN Reason: SHORTNESS OF BREATH Colchicine (Colcrys -) 0.6 mg PO BID [facility] Last Admin: 03/15/16 10:39 Dose: 0.6 mg Diphenhydramine HCl (Benadryl Injection -) 25 mg IVPUSH Q6H-IV JUAN Indomethacin (Indocin -) 50 mg PO TID [facility] Last Admin: 03/15/16 06:36 Dose: 50 mg Pantoprazole Sodium (Protonix -) 40 mg PO DAILY [facility] Last Admin: 03/15/16 10:37 Dose: 40 mg Polyethylene Glycol (Miralax (For Daily Use) -) 17 gm PO DAILY [facility] Last Admin: 03/14/16 09:06 Dose: 17 grams Triamcinolone Acetonide (Aristocort 0.025% Cream -) 1 applic TP BID PRN PRN Reason: rash Last Admin: 03/15/16 10:39 Dose: 1 applic Zinc Acetate/Diphenhydramine (Benadryl 2% Cream) 1 applic TP BID JUAN Last Admin: 03/15/16 10:39 Dose: 1 applic ASSESSMENT AND PLAN: Pericardial Effusion Early Cardiac Tamponade LV Systolic Dysfunction Hypoxia HTN Dementia r/o Malignancy - for pericardial window today - obtain bone scan - f/u SPEP/UPEP - continue empiric colchicine, indomethacin - lasix as needed - monitor urine output, creatinine - DVT prophylaxis
[2016-03-15] MEDS ORDERED: KETAMINE HCL 200 MG/20 ML VIAL ONE (11:13)
[2016-03-15] MEDS ORDERED: MIDAZOLAM HCL 2 MG/2 ML SINGLE DOSE VIAL ONE ×2 (11:13)
[2016-03-15] MEDS ORDERED: SUCCINYLCHOLINE CHLORIDE 200 MG/10 ML VIAL ONE ×3 (11:16)
[2016-03-15] MEDS ORDERED: ROCURONIUM BROMIDE 50 MG/5 ML VIAL ONE (11:17)
[2016-03-15] MEDS ORDERED: PROPOFOL 20 ML ONE ×3 (11:17)
[2016-03-15] MEDS ORDERED: LIDOCAINE 1%/EPI 1:100000 (50 ML MULTI DOSE VIAL) ONE (11:18)
--- NOTE | 2016-03-15 11:32 | PN ---
Progress Note (short form) - Note Progress Note: s: no chinese; daughter here translating; pt feels general weakness and fatigue similar to yesterday. no cp or sob. mild dizziness o: Vital Signs Period Temp Pulse Resp BP Sys/Sanford Pulse Ox Last 24 Hr 97.2 F-98.4 F 65-87 16-24 116-161/57-96 95-95 Constitutional: Yes: No Distress, Calm Eyes: No: Sclera Icterus Cardiovascular: Yes: Regular Rate and Rhythm, no jvd, S1, S2, Other (PMI non diplaced). No: Gallop, Murmur, Rub Respiratory: Yes: cta bl No: Accessory Muscle Use, Rales, Wheezes Gastrointestinal: Yes: Normal Bowel Sounds, Soft. No: Tenderness Extremities: No: Cold Edema: No Integumentary: No: Jaundice diaphoresis Neurological: Yes: Alert. No: Seizure Psychiatric: No: Agitated Current Medications Generic Name Dose Route Start Last Admin Trade Name Freq PRN Reason Stop Dose Admin Acetaminophen 650 mg 03/11/16 10:54 03/13/16 09:29 Tylenol - PO 650 mg Q6H PRN Administration FEVER OR PAIN Albuterol/Ipratropium 1 amp 03/13/16 11:57 Duoneb - NEB Q6H PRN SHORTNESS OF BREATH Colchicine 0.6 mg 03/10/16 22:00 03/15/16 10:39 Colcrys - PO 0.6 mg BID JUAN Administration Diphenhydramine HCl 25 mg 03/15/16 11:00 Benadryl Injection - IVPUSH Q6H-IV JUAN Indomethacin 50 mg 03/10/16 14:30 03/15/16 06:36 Indocin - PO 50 mg TID JUAN Administration Pantoprazole Sodium 40 mg 03/10/16 15:00 03/15/16 10:37 Protonix - PO 40 mg DAILY JUAN Administration Polyethylene Glycol 17 gm 03/11/16 14:00 03/14/16 09:06 Miralax (For Daily Use) - PO 17 grams DAILY JUAN Administration Triamcinolone Acetonide 1 applic 03/14/16 20:29 03/15/16 10:39 Aristocort 0.025% Cream - TP 1 applic BID PRN Administration rash Zinc Acetate/Diphenhydramine 1 applic 03/14/16 10:00 03/15/16 10:39 Benadryl 2% Cream TP 1 applic BID JUAN Administration Laboratory Last Values WBC 5.8 K/mm3 (4.0-10.0) 03/15/16 05:20 RBC 4.09 M/mm3 (3.60-5.2) 03/15/16 05:20 Hgb 12.7 GM/dL (10.7-15.3) 03/15/16 05:20 Hct 38.9 % (32.4-45.2) 03/15/16 05:20 MCV 95.0 fl (80-96) 03/15/16 05:20 MCHC 32.6 g/dl (32.0-36.0) 03/15/16 05:20 RDW 17.2 % (11.6-15.6) H 03/15/16 05:20 Plt Count 211 K/MM3 (134-434) 03/15/16 05:20 MPV 9.7 fl (7.5-11.1) 03/15/16 05:20 Neutrophils % 64.1 % (42.8-82.8) 03/12/16 05:00 Lymphocytes % 19.4 % (8-40) D 03/12/16 05:00 Monocytes % 12.7 % (3.8-10.2) H 03/12/16 05:00 Eosinophils % 3.5 % (0-4.5) D 03/12/16 05:00 Basophils % 0.3 % (0-2.0) 03/12/16 05:00 Platelet Estimate Slt decreased (NORMAL) 03/09/16 19:55 Polychromasia 1+ 03/09/16 19:55 Hypochromic-Microcytic 1+ 03/09/16 19:55 Anisocytosis 1+ 03/09/16 19:55 Macrocytosis 1+ 03/09/16 19:55 Morphology Comment Slide scanned 03/09/16 19:55 ESR 53 mm/hr (0-30) H 03/11/16 05:20 INR 1.16 (0.82-1.09) H 03/15/16 05:20 PTT (Actin FS) 29.3 SECONDS (26.9-34.4) 03/15/16 05:20 Puncture Site Left radial 03/09/16 12:15 ABG pH 7.44 (7.35-7.45) 03/09/16 12:15 ABG pCO2 at Pt Temp 42.5 mmHg (35-45) 03/09/16 12:15 ABG pO2 at Pt Temp 72.9 mmHg (70-100) 03/09/16 12:15 ABG HCO3 28.4 meq/L (22-26) H 03/09/16 12:15 ABG O2 Sat (Measured) 95.1 % (90-98.9) 03/09/16 12:15 ABG O2 Content 17.7 % vol (15-22) 03/09/16 12:15 ABG Base Excess 4.2 meq/l (-2-2) H 03/09/16 12:15 Obdulio Test Positive 03/09/16 12:15 O2 Delivery Device Ventimask 03/09/16 12:15 Oxygen Flow Rate 40% 03/09/16 12:15 PEEP 0.0 cmH2O 03/09/16 12:15 Sodium 139 mmol/L (136-145) 03/15/16 05:20 Potassium 4.9 mmol/L (3.5-5.1) 03/15/16 05:20 Chloride 103 mmol/L (98-107) 03/15/16 05:20 Carbon Dioxide 35 mmol/L (21-32) H 03/15/16 05:20 Anion Gap 1 (8-16) L 03/15/16 05:20 BUN 20 mg/dL (7-18) H 03/15/16 05:20 Creatinine 0.5 mg/dL (0.55-1.02) L 03/15/16 05:20 Creat Clearance w eGFR > 60 (>60) 03/15/16 05:20 Random Glucose 105 mg/dL (74-106) 03/15/16 05:20 Hemoglobin A1c % 5.8 % (4.8-6.0) 03/09/16 06:30 Calcium 8.6 mg/dL (8.5-10.1) 03/15/16 05:20 Phosphorus 3.5 mg/dL (2.5-4.9) 03/15/16 05:20 Magnesium 2.0 mg/dL (1.8-2.4) 03/15/16 05:20 Total Bilirubin 0.7 mg/dL (0.2-1.0) 03/15/16 05:20 AST 20 U/L (15-37) D 03/15/16 05:20 ALT 22 U/L (12-78) 03/15/16 05:20 Alkaline Phosphatase 94 U/L (45-117) 03/15/16 05:20 Creatine Kinase 30 IU/L (26-192) 03/09/16 10:36 Troponin I < 0.02 ng/ml (0.00-0.05) 03/09/16 10:36 C-Reactive Protein 8.4 MG/DL (0.00-0.3) H 03/11/16 05:20 B-Natriuretic Peptide 834.34 pg/ml (5-450) H 03/08/16 19:38 Total Protein 6.2 g/dl (6.4-8.2) L 03/15/16 05:20 Albumin 2.8 g/dl (3.4-5.0) L 03/15/16 05:20 Vitamin B12 253 pg/ml (180-914) 03/09/16 06:30 TSH 0.13 uIU/ml (0.358-3.74) L 03/11/16 05:20 Urine Color [place] 03/08/16 21:10 Urine Appearance Clear 03/08/16 21:10 Urine pH 5.0 (5.0-8.0) 03/08/16 21:10 Ur Specific Tiro 1.029 (1.001-1.035) 03/08/16 21:10 Urine Protein 1+ (NEGATIVE) H 03/08/16 21:10 Urine Glucose (UA) 1+ (NEGATIVE) H 03/08/16 21:10 Urine Ketones Negative (NEGATIVE) 03/08/16 21:10 Urine Blood Negative (NEGATIVE) 03/08/16 21:10 Urine Nitrite Negative (NEGATIVE) 03/08/16 21:10 Urine Bilirubin Negative (NEGATIVE) 03/08/16 21:10 Urine Urobilinogen 2.0 e.u/dl E.U./dl (0.2-1.0) H 03/08/16 21:10 Ur Leukocyte Esterase Negative (NEGATIVE) 03/08/16 21:10 Urine RBC 1 /hpf (0-3) 03/08/16 21:10 Urine WBC 2 /hpf (3-5) 03/08/16 21:10 Urine Mucus Few 03/08/16 21:10 U Random Total Protein 127 mg/dl (5-11.9) H 03/10/16 13:25 Urine Creatinine 162.0 mg/dL 03/10/16 13:25 Protein/Creatinin Ratio 0.78 MG/DL 03/10/16 13:25 ELIO Screen Negative (.) 03/12/16 05:00 Blood Type O NEGATIVE 03/14/16 13:45 Antibody Screen Negative 03/14/16 13:45 Crossmatch See Detail 03/14/16 13:45 tele: sr, pvcs cxr: clear lungs CTA: no PE. Increased interstitial markings and atelectasis at bases Echo 03/09/16/: mod-sev dec lvef, inf wall hk, nl rv, mild lae, mild mr/tr, moderate pericardial eff, ?impending tamponade based on ra wall collapse Repeat echo 03/12/16: mild con LVH. mod-sev depressed LV sys func (global), 1+ MR/TR, effusion unchanged, still with early diastolic RA collapse. est cct 32 mins a/p: 75 f (she is 83 according to family) with hx htn, h/o ME x 2, dementia and possible recent diagnosis of cancer (unknown type), here with lethargy, weakness found to have systolic cardiomyopathy and pericardial effusion. pericardial effusion, possible acute pericarditis: -reviewed echo, there is a moderate circumferential pericardial eff present but no signs of tamponade. clinically no signs of tamponade as well. -CRP and ESR elevated but ? sec to malignancy; has no friction rub present and none previously documented on exam in prior notes; ecg with mild nonsp ST-Ts-- cont indocin 50 TID (creat stable) but may need to d/c if intolerance, and no findings convincing for acute pericarditis -03/13: Size of effusion and RA collapse unchanged on echo 03/12 despite IVF resuscitation and treatment of possible pericarditis. Now with signs of worsening volume overload (increased pleural effusion). Currently off IVF. Agree with gentle diuresis with close monitoring of hemodynamics. -03/14-: remains hemodynamically stable but pericardial effusion persists and question of malignancy remains. family is agreeable for pericardial window with plans to be done today. Further treatment plans based on path results from pericardial fluid. syst chf: -echo here shows mod-sev decreased lvef with inferior hypokinesis, patient with h/o prior ME. -03/12: clinically no definite chf, exam equiovocal for JVD--monitor closely with IVF. - 03/13: Now off IVF. CXR with new rt pleural effusion. No change in effusion size or hemodynamics with IVF. gentle diuresis as mentioned above. Strict I/O' s, daily weights. -03/14-: cxr clear, no signs chf. cont to hold lasix and ivfs for now -no signs acs, ce's negx3, ecg w/o ischemic changes or significant q waves - patient with frequent ectopy on tele 03/10, initiated low dose short acting metoprolol 03/11, but bp dropped slightly and patient with orthostatic symptoms -> stopped. ectopy possibly from pericardial effusion, may resolve after window placed. monitor on tele. hypoxia: -does not appear to be due to chf -CTA with increased interstitial markings and by review a dilated PA. ? underlying pulmonary disease -pulm following lethargy/weakness: -head ct w/o acute findings. likely 2/2 to aforementioned acute illnesses. htn: -bp remains stable here, off anti-hypertensives.
[2016-03-15] MEDS ORDERED: ceFAZolin SODIUM 1 GM VIAL IVPB ONE (11:50)
[2016-03-15] MEDS ORDERED: LIDOCAINE 1%/EPI 1:100000 (50 ML MULTI DOSE VIAL) INF ONE (11:56)
[2016-03-15] MEDS ORDERED: ePHEDrine SULFATE 50 MG/1 ML AMPULE ONE (12:04)
--- NOTE | 2016-03-15 12:42 | PN ---
Progress Note (short form) - Note Progress Note: Subjective: The patient is seen and examined at the bedside Spoke to daughter at bedside, she continues to write that she would NOT like any further workup for lesion on the patient's left leg or malignancy Current Medications Generic Name Dose Route Start Last Admin Trade Name Leo PRN Reason Stop Dose Admin Acetaminophen 650 mg 03/11/16 10:54 03/13/16 09:29 Tylenol - PO 650 mg Q6H PRN Administration FEVER OR PAIN Albuterol/Ipratropium 1 amp 03/13/16 11:57 Duoneb - NEB Q6H PRN SHORTNESS OF BREATH Colchicine 0.6 mg 03/10/16 22:00 03/15/16 10:39 Colcrys - PO 0.6 mg BID JUAN Administration Diphenhydramine HCl 25 mg 03/15/16 11:00 Benadryl Injection - IVPUSH Q6H-IV JUAN Indomethacin 50 mg 03/10/16 14:30 03/15/16 06:36 Indocin - PO 50 mg TID JUAN Administration Pantoprazole Sodium 40 mg 03/10/16 15:00 03/15/16 10:37 Protonix - PO 40 mg DAILY JUAN Administration Polyethylene Glycol 17 gm 03/11/16 14:00 03/14/16 09:06 Miralax (For Daily Use) - PO 17 grams DAILY JUAN Administration Triamcinolone Acetonide 1 applic 03/14/16 20:29 03/15/16 10:39 Aristocort 0.025% Cream - TP 1 applic BID PRN Administration rash Zinc Acetate/Diphenhydramine 1 applic 03/14/16 10:00 03/15/16 10:39 Benadryl 2% Cream TP 1 applic BID JUAN Administration Objective: Vital Signs Period Temp Pulse Resp BP Sys/Sanford Pulse Ox Last 24 Hr 97.2 F-98.4 F 65-87 16-24 116-161/57-96 95-95 Physical Exam: General: NAD HEENT: B/l periorbital ecchymosis. Left forehead sutures with dried blood. No JVD Lungs: B/l scattered rhonchi Heart: RRR, S1S2 Abd: Soft, non-tender, non-distended. Normoactive bowel sounds Ext: RUE ecchymosis. RLE skin lesion CBCD WBC 5.8 K/mm3 (4.0-10.0) 03/15/16 05:20 RBC 4.09 M/mm3 (3.60-5.2) 03/15/16 05:20 Hgb 12.7 GM/dL (10.7-15.3) 03/15/16 05:20 Hct 38.9 % (32.4-45.2) 03/15/16 05:20 MCV 95.0 fl (80-96) 03/15/16 05:20 MCHC 32.6 g/dl (32.0-36.0) 03/15/16 05:20 RDW 17.2 % (11.6-15.6) H 03/15/16 05:20 Plt Count 211 K/MM3 (134-434) 03/15/16 05:20 MPV 9.7 fl (7.5-11.1) 03/15/16 05:20 CMP Sodium 139 mmol/L (136-145) 03/15/16 05:20 Potassium 4.9 mmol/L (3.5-5.1) 03/15/16 05:20 Chloride 103 mmol/L (98-107) 03/15/16 05:20 Carbon Dioxide 35 mmol/L (21-32) H 03/15/16 05:20 Anion Gap 1 (8-16) L 03/15/16 05:20 BUN 20 mg/dL (7-18) H 03/15/16 05:20 Creatinine 0.5 mg/dL (0.55-1.02) L 03/15/16 05:20 Creat Clearance w eGFR > 60 (>60) 03/15/16 05:20 Random Glucose 105 mg/dL (74-106) 03/15/16 05:20 Calcium 8.6 mg/dL (8.5-10.1) 03/15/16 05:20 Total Bilirubin 0.7 mg/dL (0.2-1.0) 03/15/16 05:20 AST 20 U/L (15-37) D 03/15/16 05:20 ALT 22 U/L (12-78) 03/15/16 05:20 Alkaline Phosphatase 94 U/L (45-117) 03/15/16 05:20 Total Protein 6.2 g/dl (6.4-8.2) L 03/15/16 05:20 Albumin 2.8 g/dl (3.4-5.0) L 03/15/16 05:20 CARDIAC ENZYMES Creatine Kinase 30 IU/L (26-192) 03/09/16 10:36 Troponin I < 0.02 ng/ml (0.00-0.05) 03/09/16 10:36 Microbiology 03/08/16 19:15 Nasopharyngeal Swab Respiratory Virus Panel - Preliminary 03/08/16 21:10 Urine - Urine Clean Catch Urine Culture - Final NO GROWTH OBTAINED 03/08/16 19:15 Nasopharyngeal Swab Influenza Types A,B Antigen (ZEESHAN) - Final 03/08/16 19:15 Nasopharyngeal Swab - Final Assessment: This is a 75 year old female with PMHx of HTN, MN x2, hx of multiple falls (most recent on 03/05) who presented to the ED with decrease po intake, lethargy, dizziness and was admitted for further evaluation and management of her emergent condition. Plan: 1) Cardiology: Moderate pericardial effusion - For pericardial window today - Repeat ECHO unchanged from original, still with moderate pericardial effusion - Appreciate CT surgery consult - Appreciate critical care consult Chest pain - CTA chest negative for PE - Hx of MN x2 in the past - Trop x3 negative - No signs of ACS - Appreciate cardiology consult Systolic heart failure - Echo reviewed moderate to severe lvef with inferior wall hypokinesis - Will hold off on starting beta oc or marian-i given finding of pericardial effusion - Appreciate cardiology consult 2) Pulm: Acute hypoxia - Improving - O2 via NC prn - CTA with no evidence of PE 3) Oncology: RLE skin lesion - Imaging from [place] with lytic lesions throughout the calvarium and the cervical spine. 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 - Long discussion with daughter today and she has declined all malignancy workup for the patient stating she would like to get her back to [place] as soon as possible 4) MSK: S/p mechanical fall with facial injuries - No acute fractures per records from [facility] 6) F/E/N: - NPO for surgery today 7) Prophylaxis: - Hold all chemical anticoagulation for pericardial window today 8) Dispo: - Requires ICU care CODE STATUS: FULL CODE Visit type - Emergency Visit Emergency Visit: Yes ED Registration Date: 03/09/16 Care time: The patient presented to the Emergency Department on the above date and was hospitalized for further evaluation of their emergent condition. - New Patient This patient is new to me today: No - Critical Care Critical Care patient: Yes Total Critical Care Time (in minutes): 45 Critical Care Statement: The care of this patient involved high complexity decision making to prevent further life threatening deterioration of the patient 's condition and/or to evalute & treat vital organ system(s) failure or risk of failure.
--- NOTE | 2016-03-15 13:15 | OP ---
Operative Note - Note: Operative Date: 03/15/16 Pre-Operative Diagnosis: Pericardial effusion Operation: Subxiphoid pericardial window Findings: ~500cc serous fluid. Normal appearing pericardium. Scar on posterior heart and apex. No clinical or bp changes during drainage. Post-Operative Diagnosis: Same as Pre-op Surgeon: Jonh Rasheed [employer] Worker: Marilyn Jefferson Anesthesia: MAC Estimated Blood Loss (mls): 25 Drains & Tubes with Location: 2 10mm bam drains Operative Report Dictated: Yes
[2016-03-15] MEDS ORDERED: SODIUM CHLORIDE 0.9% P/F 10 ML VIAL IJ ONE (13:33)
[2016-03-15] MEDS ORDERED: NOREPINEPHRINE BITARTRATE 4 MG/4 ML ML IV ONE (13:33)
--- NOTE | 2016-03-15 13:37 | OP ---
- Note: Patient Name: Sukhjinder Louise MR#: [id number] Procedure Date: 03/15/2016 Preoperative Diagnosis: Pericardial effusion Postoperative Diagnosis: Same Procedure: 1. Subxiphoid pericardial window. Indication: as above Surgeon(s): Dr. Jonh Rasheed; Loan Interviewer Mortgage: Marilyn Jefferson Cosurgeon: santa. Anesthesia: MAC with local Wound Classification: Clean Antibiotic Prophylaxis: Cefazolin Findings: 1. 500cc pericardial fluidserous; 2. No change in hemodynamics with drainage; 3. Scar on apex and posterior of heart. Specimens Sent: Pericardium and pericardial fluid for cytology and culture. Complications: none Drains / Tubes / Catheters: 2 10mm bam chest tubes Hardware / Implants: n/a Blood / Fluid Losses: 25cc Blood / Fluids Administered: per anesthesia Post-Operative Condition: stable, extubated to PACU Indications: This patient is a 75 year-old female who presented with shortness of breath after a viral illness. A workup to rule out PE showed a pericardial effusion. She was referred for pericardial window by the ICU attendings and the cardiology team after and Echo showed signs of early tamponade. The patient and her daughter were explained the risks, benefits, and alternatives of a subxiphoid window and agreed and understood. Details of Procedure: The patient was taken into the operating room and placed supine on the table. She was monitored with pulse oximetry and blood pressure monitoring, including an arterial line. Sequential compression devices were placed. She was given sedation and prepared and draped in sterile fashion. We then made a small incision after giving local anesthesia over the xiphoid process, opened the fascia and removed the xiphoid. We then identified the pericardium and opened it. Approximately 500cc of serous fluid was drained. There was no hemodynamic change. The pericardium and fluid were sent for culture and pathology/cytology. We then placed two drains and secured them. We next closed the fascia, the subcutaneous tissue, and the skin. Sterile dressings were placed. The patient was then awakened and extubated. She tolerated the procedure well and was taken to the PACU.
[2016-03-15] MEDS ORDERED: SODIUM CHLORIDE 1,000 ML IV SCH (14:00)
[2016-03-15] MEDS: ALBUTEROL SO4 2.5/IPRATROPIUM 0.5 INH SOL 3 ML VIAL.NEB. NEB SCH ×3 (14:21→23:43)
[2016-03-15] MEDS: POLYETHYLENE GLYCOL 3350 119 GM BTL PO SCH (14:23)
--- NOTE | 2016-03-15 14:36 | SURG ---
Surgery Gastroenterology Nurse Note Gastroenterology Nurse: Marilyn Jefferson PA-C Date of Service: 03/15/16 Diagnosis: pericardial effusion Procedure: subxiphoid pericardal window I was present for the entirety of the operative procedure. For further detail, please refer to operative report. Visit type - Case Type Case Type: ED Admission - Emergency Emergency Visit: Yes ED Registration Date: 03/09/16 Care time: The patient presented to the Emergency Department on the above date and was hospitalized for further evaluation of their emergent condition. - New patient This patient is new to me today: Yes Date on this admission: 03/15/16 - Critical Care Critical Care patient: No
--- NOTE | 2016-03-15 14:58 | PN ---
Progress Note, Physician History of Present Illness: Pt seen and examined at bedside. She went for the pericardial window and biopsy today. - Current Medication List Current Medications: Active Medications Acetaminophen (Tylenol -) 650 mg PO Q6H PRN PRN Reason: FEVER OR PAIN Last Admin: 03/13/16 09:29 Dose: 650 mg Albuterol/Ipratropium (Duoneb -) 1 amp NEB QIDR [facility] Last Admin: 03/15/16 14:21 Dose: 1 amp Colchicine (Colcrys -) 0.6 mg PO BID [facility] Last Admin: 03/15/16 10:39 Dose: 0.6 mg Diphenhydramine HCl (Benadryl Injection -) 25 mg IVPUSH Q6H-IV JUAN Last Admin: 03/15/16 14:23 Dose: 25 mg Heparin Sodium (Porcine) (Heparin -) 5,000 unit SQ BID [facility] Sodium Chloride (Normal Saline -) 1,000 mls @ 50 mls/hr IV ASDIR [facility] Stop: 03/16/16 13:59 Last Admin: 03/15/16 14:23 Dose: 50 mls/hr Indomethacin (Indocin -) 50 mg PO TID [facility] Last Admin: 03/15/16 14:24 Dose: 50 mg Pantoprazole Sodium (Protonix -) 40 mg PO DAILY [facility] Last Admin: 03/15/16 10:37 Dose: 40 mg Polyethylene Glycol (Miralax (For Daily Use) -) 17 gm PO DAILY [facility] Last Admin: 03/15/16 14:23 Dose: 17 grams Triamcinolone Acetonide (Aristocort 0.025% Cream -) 1 applic TP BID PRN PRN Reason: rash Last Admin: 03/15/16 10:39 Dose: 1 applic Zinc Acetate/Diphenhydramine (Benadryl 2% Cream) 1 applic TP BID [facility] Last Admin: 03/15/16 10:39 Dose: 1 applic - Objective Vital Signs: Vital Signs Temperature 96.7 F L 03/15/16 13:25 Pulse Rate 97 H 03/15/16 13:45 Respiratory Rate 18 03/15/16 13:45 Blood Pressure 138/71 03/15/16 13:45 O2 Sat by Pulse Oximetry (%) 95 03/15/16 10:18 Constitutional: Yes: Calm Eyes: Yes: Conjunctiva Clear HENT: Yes: Atraumatic Neck: Yes: Supple Cardiovascular: Yes: S1, S2 Gastrointestinal: Yes: Soft Genitourinary: Yes: WNL Musculoskeletal: Yes: Muscle Weakness Edema: No Neurological: Yes: Oriented Psychiatric: Yes: Oriented Labs: CBC, BMP 03/15/16 05:20 03/15/16 05:20 INR, PTT INR 1.16 (0.82-1.09) H 03/15/16 05:20 Problem List - Problems (1) Hypoxia Code(s): R09.02 - HYPOXEMIA (2) Lethargy Code(s): R53.83 - OTHER FATIGUE (3) Pericardial effusion Code(s): I31.3 - PERICARDIAL EFFUSION (NONINFLAMMATORY) (4) Proteinuria Code(s): R80.9 - PROTEINURIA, UNSPECIFIED (5) Hypertension Code(s): I10 - ESSENTIAL (PRIMARY) HYPERTENSION (6) Skin cancer Code(s): C44.90 - UNSPECIFIED MALIGNANT NEOPLASM OF SKIN, UNSPECIFIED Assessment/Plan Current Medications Generic Name Dose Route Start Last Admin Trade Name Freq PRN Reason Stop Dose Admin Acetaminophen 650 mg 03/11/16 10:54 03/13/16 09:29 Tylenol - PO 650 mg Q6H PRN Administration FEVER OR PAIN Albuterol/Ipratropium 1 amp 03/15/16 14:00 03/15/16 14:21 Duoneb - NEB 1 amp QIDR JUAN Administration Colchicine 0.6 mg 03/10/16 22:00 03/15/16 10:39 Colcrys - PO 0.6 mg BID JUAN Administration Diphenhydramine HCl 25 mg 03/15/16 11:00 03/15/16 14:23 Benadryl Injection - IVPUSH 25 mg Q6H-IV JUAN Administration Heparin Sodium (Porcine) 5,000 unit 03/16/16 10:00 Heparin - SQ BID JUAN Sodium Chloride 1,000 mls @ 50 mls/hr 03/15/16 14:00 03/15/16 14:23 Normal Saline - IV 03/16/16 13:59 50 mls/hr ASDIR JUAN Administration Indomethacin 50 mg 03/10/16 14:30 03/15/16 14:24 Indocin - PO 50 mg TID JUAN Administration Pantoprazole Sodium 40 mg 03/10/16 15:00 03/15/16 10:37 Protonix - PO 40 mg DAILY JUAN Administration Polyethylene Glycol 17 gm 03/11/16 14:00 03/15/16 14:23 Miralax (For Daily Use) - PO 17 grams DAILY JUAN Administration Triamcinolone Acetonide 1 applic 03/14/16 20:29 03/15/16 10:39 Aristocort 0.025% Cream - TP 1 applic BID PRN Administration rash Zinc Acetate/Diphenhydramine 1 applic 03/14/16 10:00 03/15/16 10:39 Benadryl 2% Cream TP 1 applic BID JUAN Administration Impression 1. pericardial effusion 2. hypoxia 3. proteinuria 4. HTN 5. skin cancer 6. congestion on cxr 7. s/p fall and laceration to head Plan - reviewed cxr, it is improved - about 380 cc of fluid were removed from the pericardial sack. Biopsy and fluid was sent for cytology - repeat labs in am - pericardial tubes in place - keep in ICU until tubes are removed - discussed with ICU team - will follow Dr Ruth
[2016-03-15] MEDS: ACETAMINOPHEN 325 MG TABLET (FP) PO PRN (22:24)
[2016-03-16 00:08] LABS: A/G RATIO 0.9 (0.7-1.7); ALBUMIN 2.7 g/dL (2.9-4.4); GLOBULIN, TOTAL 3.1 g/dL (2.2-3.9); M-SPIKE Not Observed g/dL (Not Observed); TOTAL PROTEIN 5.8 g/dL (6.0-8.5)
[2016-03-16] MEDS: ACETAMINOPHEN 325 MG TABLET (FP) PO PRN (06:19)
[2016-03-16] MEDS: ALBUTEROL SO4 2.5/IPRATROPIUM 0.5 INH SOL 3 ML VIAL.NEB. NEB SCH ×4 (06:19→23:33)
[2016-03-16] MEDS: INDOMETHACIN 50 MG CAPSULE PO SCH ×3 (06:20→21:01)
[2016-03-16 06:50] LABS: MCH 30.8 pg (25.7-33.7); MCHC 32.2 g/dl (32.0-36.0); MEAN CELL VOLUME 95.7 fl (80-96); PLATELET COUNT 221 K/MM3 (134-434); RDW 17.2 % (11.6-15.6); WHITE BLOOD COUNT 8.9 K/mm3 (4.0-10.0)
[2016-03-16 07:13] LABS: CALCIUM 8.1 mg/dL (8.5-10.1)
[2016-03-16 07:14] LABS: CREATININE 0.5 mg/dL (0.55-1.02)
[2016-03-16] MEDS: PANTOPRAZOLE 40 MG TABLET (FP) PO SCH (09:31)
[2016-03-16] MEDS: HEPARIN NA (PORCINE) 5,000 UNITS/ML 1ML VIAL SQ SCH ×2 (09:32→21:01)
[2016-03-16] MEDS: POLYETHYLENE GLYCOL 3350 119 GM BTL PO SCH (09:32)
[2016-03-16] MEDS: COLCHICINE 0.6 MG TABLET (FP) PO SCH ×2 (09:36→21:01)
[2016-03-16] MEDS ORDERED: PT OWN MED DRAWER 7, Y5N ONE ×4 (09:36→20:27)
[2016-03-16] MEDS ORDERED: FUROSEMIDE 40 MG/4 ML INJECTABLE VIAL IVPUSH ONE (11:59)
--- NOTE | 2016-03-16 12:19 | PN ---
Progress Note (short form) - Note Progress Note: s: no greek; daughter here translating; pt feels general weakness and fatigue. no cp or sob or dizzy. had pericardial window yesterday o: Vital Signs Period Temp Pulse Resp BP Sys/Sanford Pulse Ox Last 24 Hr 96.7 F-98.9 F 96-108 17-25 93-150/41-84 70-100 Constitutional: Yes: No Distress, Calm Eyes: No: Sclera Icterus Cardiovascular: Yes: Regular Rate and Rhythm, no jvd, S1, S2,. No: Gallop, Murmur, Rub Respiratory: Yes: cta bl No: Accessory Muscle Use, Rales, Wheezes Gastrointestinal: Yes: Normal Bowel Sounds, Soft. No: Tenderness Extremities: No: Cold Edema: No Integumentary: No: Jaundice diaphoresis Neurological: Yes: Alert. No: Seizure Psychiatric: No: Agitated Current Medications Generic Name Dose Route Start Last Admin Trade Name Freq PRN Reason Stop Dose Admin Acetaminophen 650 mg 03/11/16 10:54 03/16/16 06:19 Tylenol - PO 650 mg Q6H PRN Administration FEVER OR PAIN Albuterol/Ipratropium 1 amp 03/15/16 14:00 03/16/16 11:25 Duoneb - NEB 1 amp QIDR JUAN Administration Colchicine 0.6 mg 03/10/16 22:00 03/16/16 09:36 Colcrys - PO 0.6 mg BID JUAN Administration Diphenhydramine HCl 25 mg 03/15/16 11:00 03/16/16 09:33 Benadryl Injection - IVPUSH 25 mg Q6H-IV JUAN Administration Heparin Sodium (Porcine) 5,000 unit 03/16/16 10:00 03/16/16 09:32 Heparin - SQ 5,000 unit BID JUAN Administration Indomethacin 50 mg 03/10/16 14:30 03/16/16 06:20 Indocin - PO 50 mg TID JUAN Administration Pantoprazole Sodium 40 mg 03/10/16 15:00 03/16/16 09:31 Protonix - PO 40 mg DAILY JUAN Administration Polyethylene Glycol 17 gm 03/11/16 14:00 03/16/16 09:32 Miralax (For Daily Use) - PO 17 grams DAILY JUAN Administration Triamcinolone Acetonide 1 applic 03/14/16 20:29 03/15/16 10:39 Aristocort 0.025% Cream - TP 1 applic BID PRN Administration rash Zinc Acetate/Diphenhydramine 1 applic 03/14/16 10:00 03/16/16 09:33 Benadryl 2% Cream TP 1 applic BID JUAN Administration CBC, BMP 03/16/16 05:27 03/16/16 05:27 tele: sr, occ pvcs cxr: clear lungs CTA: no PE. Increased interstitial markings and atelectasis at bases Echo 03/09/16/: mod-sev dec lvef, inf wall hk, nl rv, mild lae, mild mr/tr, moderate pericardial eff, ?impending tamponade based on ra wall collapse Repeat echo 03/12/16: mild con LVH. mod-sev depressed LV sys func (global), 1+ MR/TR, effusion unchanged, still with early diastolic RA collapse. a/p: 75 f (she is 83 according to family) with hx htn, h/o [place] x 2, dementia and possible recent diagnosis of cancer (unknown type), here with lethargy, weakness found to have systolic cardiomyopathy and pericardial effusion. pericardial effusion, possible acute pericarditis: -reviewed echo, there is a moderate circumferential pericardial eff present but no signs of tamponade. clinically no signs of tamponade as well. -CRP and ESR elevated but ? sec to malignancy; has no friction rub present and none previously documented on exam in prior notes; ecg with mild nonsp ST-Ts-- cont indocin 50 TID (creat stable) but may need to d/c if intolerance, and no findings convincing for acute pericarditis -03/13: Size of effusion and RA collapse unchanged on echo 03/12 despite IVF resuscitation and treatment of possible pericarditis. Now with signs of worsening volume overload (increased pleural effusion). Currently off IVF. Agree with gentle diuresis with close monitoring of hemodynamics. -03/14-: remains hemodynamically stable but pericardial effusion persists and question of malignancy remains. family is agreeable for pericardial window with plans to be done today. -03/16: remains stable s/p pericardial window yesterday with 500 cc nonbloody fluid removed and drain in place today. Further treatment plans based on path results from pericardial fluid. syst chf: -echo here shows mod-sev decreased lvef with inferior hypokinesis, patient with h/o prior TX. -03/12: clinically no definite chf, exam equiovocal for JVD--monitor closely with IVF. - 03/13: Now off IVF. CXR with new rt pleural effusion. No change in effusion size or hemodynamics with IVF. gentle diuresis as mentioned above. Strict I/O' s, daily weights. -03/14-: no signs chf. cont to hold lasix and ivfs for now -no signs acs, ce's negx3, ecg w/o ischemic changes or significant q waves - patient with frequent ectopy on tele 03/10, initiated low dose short acting metoprolol 03/11, but bp dropped slightly and patient with orthostatic symptoms -> stopped. ectopy possibly from pericardial effusion, may resolve effusion improves. monitor on tele. hypoxia: -does not appear to be due to chf -CTA with increased interstitial markings and by review a dilated PA. ? underlying pulmonary disease -pulm following lethargy/weakness: -head ct w/o acute findings. likely 2/2 to aforementioned acute illnesses. htn: -bp remains stable here, off anti-hypertensives.
--- NOTE | 2016-03-16 12:24 | PN ---
Teaching Attending Note Name of Resident: Dawit Mcknight ATTENDING PHYSICIAN STATEMENT I saw and evaluated the patient. I reviewed the resident's note and discussed the case with the resident. I agree with the resident's findings and plan as documented. SUBJECTIVE: Patient seen and examined in the ICU. Worsening rash reported. Some discomfort at the CT site. CXR: Increased CHF pattern Intake & Output 03/13/16 03/14/16 03/15/16 03/16/16 23:59 23:59 23:59 23:59 Intake Total 510 618 4396 750 Output Total 138 126 9663 Balance 378 250 785 750 Weight 115 lb 8.356 oz 110 lb 14.28 oz 111 lb 14.4 oz 111 lb Last Vital Signs Temp Pulse Resp BP Pulse Ox 98.8 F 96 H 24 111/41 94 L 03/16/16 06:00 03/16/16 09:25 03/16/16 06:00 03/16/16 06:00 03/16/16 09:25 Active Medications Acetaminophen (Tylenol -) 650 mg PO Q6H PRN PRN Reason: FEVER OR PAIN Last Admin: 03/16/16 06:19 Dose: 650 mg Albuterol/Ipratropium (Duoneb -) 1 amp NEB QIDR JUAN Last Admin: 03/16/16 11:25 Dose: 1 amp Colchicine (Colcrys -) 0.6 mg PO BID JUAN Last Admin: 03/16/16 09:36 Dose: 0.6 mg Diphenhydramine HCl (Benadryl Injection -) 25 mg IVPUSH Q6H-IV JUAN Last Admin: 03/16/16 09:33 Dose: 25 mg Heparin Sodium (Porcine) (Heparin -) 5,000 unit SQ BID JUAN Last Admin: 03/16/16 09:32 Dose: 5,000 unit Indomethacin (Indocin -) 50 mg PO TID JUAN Last Admin: 03/16/16 06:20 Dose: 50 mg Pantoprazole Sodium (Protonix -) 40 mg PO DAILY JUAN Last Admin: 03/16/16 09:31 Dose: 40 mg Polyethylene Glycol (Miralax (For Daily Use) -) 17 gm PO DAILY JUAN Last Admin: 03/16/16 09:32 Dose: 17 grams Triamcinolone Acetonide (Aristocort 0.025% Cream -) 1 applic TP BID PRN PRN Reason: rash Last Admin: 03/15/16 10:39 Dose: 1 applic Zinc Acetate/Diphenhydramine (Benadryl 2% Cream) 1 applic TP BID JUAN Last Admin: 03/16/16 09:33 Dose: 1 applic Gen: NAD at rest Heart: RRR Lung: scattered basilar rhonchi, intact pericardial drain Abd: soft, nontender Ext: no edema Back: worsening macular blanching rash Laboratory Results - last 24 hr 03/14/16 03/16/16 03/16/16 06:00 05:27 05:27 WBC 8.9 D RBC 4.23 Hgb 13.0 Hct 40.5 MCV 95.7 MCHC 32.2 RDW 17.2 H Plt Count 221 MPV 10.0 Sodium 141 Potassium 4.6 Chloride 102 Carbon Dioxide 31 Anion Gap 8 BUN 10 D Creatinine 0.5 L Random Glucose 91 Calcium 8.1 L Prot Electrophoresis Serum Total Protein 5.8 L Albumin 2.7 L Globulin 3.1 Albumin/Globulin Ratio 0.9 Xncix-1-Yhcftxkxd 0.3 Mffus-6-Vskohonjm 0.8 Beta Globulins 1.0 Gamma Globulins 1.1 NISH M-Harry Not observed ASSESSMENT AND PLAN: Pericardial Effusion Early Cardiac Tamponade LV Systolic Dysfunction Hypoxia HTN Dementia r/o Malignancy - Monitor output - f/u SPEP/UPEP - continue colchicine / indomethacin - Trial of lasix - monitor urine output, creatinine - DVT prophylaxis - OOB to chair - Incentive Spirometer Dr Ospina CCTime 35"
--- NOTE | 2016-03-16 13:10 | PN ---
Progress Note, Physician History of Present Illness: no issues overnight complains of itching now has rash over limbs which look like old tape sites and maculopapular rash over lower back likely from contact dermatitis which is somewhat worsened - Current Medication List Current Medications: Active Medications Acetaminophen (Tylenol -) 650 mg PO Q6H PRN PRN Reason: FEVER OR PAIN Last Admin: 03/16/16 06:19 Dose: 650 mg Albuterol/Ipratropium (Duoneb -) 1 amp NEB QIDR [facility] Last Admin: 03/16/16 11:25 Dose: 1 amp Colchicine (Colcrys -) 0.6 mg PO BID [facility] Last Admin: 03/16/16 09:36 Dose: 0.6 mg Diphenhydramine HCl (Benadryl Injection -) 25 mg IVPUSH Q6H-IV [facility] Last Admin: 03/16/16 09:33 Dose: 25 mg Docusate Sodium (Colace -) 100 mg PO TID PRN PRN Reason: CONSTIPATION Heparin Sodium (Porcine) (Heparin -) 5,000 unit SQ BID [facility] Last Admin: 03/16/16 09:32 Dose: 5,000 unit Indomethacin (Indocin -) 50 mg PO TID [facility] Last Admin: 03/16/16 06:20 Dose: 50 mg Nystatin/Triamcinolone Acetonide (Mycolog Ii Cream -) 1 applic TP BID [facility] Pantoprazole Sodium (Protonix -) 40 mg PO DAILY [facility] Last Admin: 03/16/16 09:31 Dose: 40 mg Zinc Acetate/Diphenhydramine (Benadryl 2% Cream) 1 applic TP BID [facility] Last Admin: 03/16/16 09:33 Dose: 1 applic - Objective Vital Signs: Vital Signs Temperature 98.8 F 03/16/16 06:00 Pulse Rate 89 03/16/16 12:00 Respiratory Rate 21 03/16/16 12:00 Blood Pressure 95/49 03/16/16 12:00 O2 Sat by Pulse Oximetry (%) 94 L 03/16/16 10:00 Constitutional: Yes: Well Nourished, No Distress, Calm, Thin Eyes: Yes: Other (bilateral contusion of eyes improving) Neck: Yes: Trachea Midline Cardiovascular: Yes: Regular Rate and Rhythm, Other (no chest wall tenderness increased cheat pain with movement) +hepatojugular reflux Respiratory: Yes: +congestion + crackles Incision C/D/I Gastrointestinal: Yes: WNL, Normal Bowel Sounds, Soft Extremities: Yes: WNL Edema: No Integumentary: Yes: Other (large cauliflower fleshy/red like growth of right singh) rash over upper extremities where tape was placed maculopapular rash over lower back and now possible circular fungal infection over epigatsrium Neurological: Yes: Alert, Oriented, Cranial Nerves II-XII Intact ...Motor Strength: WNL Labs: CBC, BMP 03/16/16 05:27 03/16/16 05:27 INR, PTT INR 1.16 (0.82-1.09) H 03/15/16 05:20 Assessment/Plan 75F with HTN admitted with nausea vomiting weakness and anorexia found to have a pericardial effusion on echo and CT scan transferred to ICU for further monitoring. Spoke to granddaughter who would like to be aggressive about her treatment. They would now like a pericardial window. they wants a work up for malignancy and they would like skin and bone biopsies Pericardial effusion:hemodynamically stable: possible effusion could be from recent viral infection no clinical evidence of pericardial tamponade s/p pericardial window 380ml fluid Drained clear fluid BP stable No JVD + Hepatojugular reflux no muffled heart sounds CTA chest negative for PE CT surgery consult appreciated Nephrology consult appreciated hold norvasc per cardiology fluid bolus PRN hypotension [facility] contacted for imaging studies show lytic lesion on head CT and spinal XR no beta blockers continue indomethacin continue colchicine repeat echo is unchanged Diueresis significantly improved respiratory status of patient systolic CHF: newly diagnosed on echo mod-severe decreased LEVF, inferior wall hypokinesis, normal right ventricular function, mild eft atrial enlargement, mild mitral regurg/tricuspid regurg, moderate pericardial effusion, possible impending tamponade based on right atrial wall collapse Cardiology consult appreciated Post op from pericardial window 380ml drained SPEP/UPEP-SPEP negative Hypoxia: improved Patient saturating well in ICU on nasal cannula CTA chest negative for PE CXR congestion will give one time dose of 20 IV lasix stop IVF Rash: contact dermatitis benadryl IV Q6h PRN Mycalog 2% cream derm consult HTN: Controlled for now hold norvasc per cardiology for now mechanical fall: no issues at this time repeat head CT stable Skin lesion likely malignancy: likely some kind of benign or malignant growth possible patient has other malignancy Granddaughter would not like it biopsied will do bone scan SPEP/UPEP Proteinuria: Nephrology consult appreciated FEN: Stop IVF no electrolyte abnormalities sodium controlled diet PPx: HSQ SCD protonix PT consult Patient seen and case discussed with Dr. quinn
--- NOTE | 2016-03-16 13:29 | PN ---
Progress Note, Physician History of Present Illness: Pt seen and examined at bedside. Daughter is at bedside. Case was discussed with her. - Current Medication List Current Medications: Active Medications Acetaminophen (Tylenol -) 650 mg PO Q6H PRN PRN Reason: FEVER OR PAIN Last Admin: 03/16/16 06:19 Dose: 650 mg Albuterol/Ipratropium (Duoneb -) 1 amp NEB QIDR [facility] Last Admin: 03/16/16 11:25 Dose: 1 amp Colchicine (Colcrys -) 0.6 mg PO BID [facility] Last Admin: 03/16/16 09:36 Dose: 0.6 mg Diphenhydramine HCl (Benadryl Injection -) 25 mg IVPUSH Q6H-IV [facility] Last Admin: 03/16/16 09:33 Dose: 25 mg Docusate Sodium (Colace -) 100 mg PO TID PRN PRN Reason: CONSTIPATION Heparin Sodium (Porcine) (Heparin -) 5,000 unit SQ BID [facility] Last Admin: 03/16/16 09:32 Dose: 5,000 unit Indomethacin (Indocin -) 50 mg PO TID [facility] Last Admin: 03/16/16 06:20 Dose: 50 mg Nystatin/Triamcinolone Acetonide (Mycolog Ii Cream -) 1 applic TP BID [facility] Pantoprazole Sodium (Protonix -) 40 mg PO DAILY [facility] Last Admin: 03/16/16 09:31 Dose: 40 mg Zinc Acetate/Diphenhydramine (Benadryl 2% Cream) 1 applic TP BID [facility] Last Admin: 03/16/16 09:33 Dose: 1 applic - Objective Vital Signs: Vital Signs Temperature 98.8 F 03/16/16 06:00 Pulse Rate 89 03/16/16 12:00 Respiratory Rate 21 03/16/16 12:00 Blood Pressure 95/49 03/16/16 12:00 O2 Sat by Pulse Oximetry (%) 94 L 03/16/16 10:00 Constitutional: Yes: Calm Eyes: Yes: Conjunctiva Clear HENT: Yes: Atraumatic Neck: Yes: Supple Cardiovascular: Yes: S1, S2 Respiratory: Yes: On Nasal O2 Gastrointestinal: Yes: Soft Genitourinary: Yes: WNL Edema: No Neurological: Yes: Oriented Labs: CBC, BMP 03/16/16 05:27 03/16/16 05:27 INR, PTT INR 1.16 (0.82-1.09) H 03/15/16 05:20 Problem List - Problems (1) Hypoxia Code(s): R09.02 - HYPOXEMIA (2) Lethargy Code(s): R53.83 - OTHER FATIGUE (3) Pericardial effusion Code(s): I31.3 - PERICARDIAL EFFUSION (NONINFLAMMATORY) (4) Proteinuria Code(s): R80.9 - PROTEINURIA, UNSPECIFIED (5) Hypertension Code(s): I10 - ESSENTIAL (PRIMARY) HYPERTENSION (6) Skin cancer Code(s): C44.90 - UNSPECIFIED MALIGNANT NEOPLASM OF SKIN, UNSPECIFIED Assessment/Plan Current Medications Generic Name Dose Route Start Last Admin Trade Name Freq PRN Reason Stop Dose Admin Acetaminophen 650 mg 03/11/16 10:54 03/16/16 06:19 Tylenol - PO 650 mg Q6H PRN Administration FEVER OR PAIN Albuterol/Ipratropium 1 amp 03/15/16 14:00 03/16/16 11:25 Duoneb - NEB 1 amp QIDR JUAN Administration Colchicine 0.6 mg 03/10/16 22:00 03/16/16 09:36 Colcrys - PO 0.6 mg BID JUAN Administration Diphenhydramine HCl 25 mg 03/15/16 11:00 03/16/16 09:33 Benadryl Injection - IVPUSH 25 mg Q6H-IV JUAN Administration Docusate Sodium 100 mg 03/16/16 13:09 Colace - PO TID PRN CONSTIPATION Heparin Sodium (Porcine) 5,000 unit 03/16/16 10:00 03/16/16 09:32 Heparin - SQ 5,000 unit BID JUAN Administration Indomethacin 50 mg 03/10/16 14:30 03/16/16 06:20 Indocin - PO 50 mg TID JUAN Administration Nystatin/Triamcinolone Acetonide 1 applic 03/16/16 12:45 Mycolog Ii Cream - TP BID JUAN Pantoprazole Sodium 40 mg 03/10/16 15:00 03/16/16 09:31 Protonix - PO 40 mg DAILY JUAN Administration Zinc Acetate/Diphenhydramine 1 applic 03/14/16 10:00 03/16/16 09:33 Benadryl 2% Cream TP 1 applic BID JUAN Administration Impression 1. pericardial effusion 2. hypoxia 3. proteinuria 4. HTN 5. skin cancer 6. congestion on cxr 7. s/p fall and laceration to head Plan - cxr reviewed - pt appears stable - monitor pericardial ouput - tube to stay in until Saturday - discussed with family - discussed with ICU team - will follow Dr Ruth
--- NOTE | 2016-03-16 13:40 | PN ---
Progress Note (short form) - Note Progress Note: Anesthesia postop note 75 y/o F s/p MAC anesthesia for pericardial window POD#1, alert and awake, sitting in bed, in ICU, eating lunch, seems comfortable.VSS, no complaints, pain fairly well controlled. No anesthesia complications.
--- NOTE | 2016-03-16 14:45 | PATH ---
Cytology Non-Gynecological Report Patient Name: DANETTE NUÑEZ [facility]. Rec. #: [id number] /Age/Gender: 1940 (Age: 75) / F Account: [id number] Location: [facility] HIV CTS SPECIALIST Taken: 03/15/2016 Received: 03/15/2016 Reported: 03/16/2016 Physicians: Jonh Rasheed M.D. Specimen(s) Received PERICARDIAL FLUID Clinical History Pericardial effusion Final Diagnosis ----- Pericardial fluid: Satisfactory for evaluation. No malignant cells identified. Reactive mesothelial cells, histiocytes and lymphocytes. ___ Electronically Signed Dez Rider M.D. Gross Description ----- Received is a 50 cc of sero-sanguinous fluid fresh. One cytofunnel slide and one cell block are made. ___
--- NOTE | 2016-03-16 15:57 | PN ---
Progress Note (short form) - Note Progress Note: Subjective: The patient is seen and examined at the bedside Spoke to daughter at bedside, she continues to write that she would NOT like any further workup for lesion on the patient's left leg or malignancy Current Medications Generic Name Dose Route Start Last Admin Trade Name Leo PRN Reason Stop Dose Admin Acetaminophen 650 mg 03/11/16 10:54 03/13/16 09:29 Tylenol - PO 650 mg Q6H PRN Administration FEVER OR PAIN Albuterol/Ipratropium 1 amp 03/13/16 11:57 Duoneb - NEB Q6H PRN SHORTNESS OF BREATH Colchicine 0.6 mg 03/10/16 22:00 03/15/16 10:39 Colcrys - PO 0.6 mg BID JUAN Administration Diphenhydramine HCl 25 mg 03/15/16 11:00 Benadryl Injection - IVPUSH Q6H-IV JUAN Indomethacin 50 mg 03/10/16 14:30 03/15/16 06:36 Indocin - PO 50 mg TID JUAN Administration Pantoprazole Sodium 40 mg 03/10/16 15:00 03/15/16 10:37 Protonix - PO 40 mg DAILY JUAN Administration Polyethylene Glycol 17 gm 03/11/16 14:00 03/14/16 09:06 Miralax (For Daily Use) - PO 17 grams DAILY JUAN Administration Triamcinolone Acetonide 1 applic 03/14/16 20:29 03/15/16 10:39 Aristocort 0.025% Cream - TP 1 applic BID PRN Administration rash Zinc Acetate/Diphenhydramine 1 applic 03/14/16 10:00 03/15/16 10:39 Benadryl 2% Cream TP 1 applic BID JUAN Administration Objective: Vital Signs Period Temp Pulse Resp BP Sys/Sanford Pulse Ox Last 24 Hr 97.2 F-98.4 F 65-87 16-24 116-161/57-96 95-95 Physical Exam: General: NAD HEENT: B/l periorbital ecchymosis. Left forehead sutures with dried blood. No JVD Lungs: Chest with sternal incision, c/d/i. pericardial tubes intact. B/l scattered rhonchi Heart: RRR, S1S2 Abd: Soft, non-tender, non-distended. Normoactive bowel sounds Ext: RUE ecchymosis. RLE skin lesion CBCD WBC 5.8 K/mm3 (4.0-10.0) 03/15/16 05:20 RBC 4.09 M/mm3 (3.60-5.2) 03/15/16 05:20 Hgb 12.7 GM/dL (10.7-15.3) 03/15/16 05:20 Hct 38.9 % (32.4-45.2) 03/15/16 05:20 MCV 95.0 fl (80-96) 03/15/16 05:20 MCHC 32.6 g/dl (32.0-36.0) 03/15/16 05:20 RDW 17.2 % (11.6-15.6) H 03/15/16 05:20 Plt Count 211 K/MM3 (134-434) 03/15/16 05:20 MPV 9.7 fl (7.5-11.1) 03/15/16 05:20 CMP Sodium 139 mmol/L (136-145) 03/15/16 05:20 Potassium 4.9 mmol/L (3.5-5.1) 03/15/16 05:20 Chloride 103 mmol/L (98-107) 03/15/16 05:20 Carbon Dioxide 35 mmol/L (21-32) H 03/15/16 05:20 Anion Gap 1 (8-16) L 03/15/16 05:20 BUN 20 mg/dL (7-18) H 03/15/16 05:20 Creatinine 0.5 mg/dL (0.55-1.02) L 03/15/16 05:20 Creat Clearance w eGFR > 60 (>60) 03/15/16 05:20 Random Glucose 105 mg/dL (74-106) 03/15/16 05:20 Calcium 8.6 mg/dL (8.5-10.1) 03/15/16 05:20 Total Bilirubin 0.7 mg/dL (0.2-1.0) 03/15/16 05:20 AST 20 U/L (15-37) D 03/15/16 05:20 ALT 22 U/L (12-78) 03/15/16 05:20 Alkaline Phosphatase 94 U/L (45-117) 03/15/16 05:20 Total Protein 6.2 g/dl (6.4-8.2) L 03/15/16 05:20 Albumin 2.8 g/dl (3.4-5.0) L 03/15/16 05:20 CARDIAC ENZYMES Creatine Kinase 30 IU/L (26-192) 03/09/16 10:36 Troponin I < 0.02 ng/ml (0.00-0.05) 03/09/16 10:36 Microbiology 03/08/16 19:15 Nasopharyngeal Swab Respiratory Virus Panel - Preliminary 03/08/16 21:10 Urine - Urine Clean Catch Urine Culture - Final NO GROWTH OBTAINED 03/08/16 19:15 Nasopharyngeal Swab Influenza Types A,B Antigen (ZEESHAN) - Final 03/08/16 19:15 Nasopharyngeal Swab - Final Assessment: This is a 75 year old female with PMHx of HTN, NE x2, hx of multiple falls (most recent on 03/05) who presented to the ED with decrease po intake, lethargy, dizziness and was admitted for further evaluation and management of her emergent condition. Plan: 1) Cardiology: Moderate pericardial effusion s/p subxiphoid pericardial window - F/u pericardial fluid for cytology and culture - Monitor drain output - Appreciate CT surgery consult - Appreciate critical care consult Chest pain - CTA chest negative for PE - Hx of NE x2 in the past - Trop x3 negative - No signs of ACS - Appreciate cardiology consult Systolic heart failure - Echo reviewed moderate to severe lvef with inferior wall hypokinesis - Will hold off on starting beta oc or marian-i given finding of pericardial effusion - Appreciate cardiology consult 2) Pulm: Acute hypoxia - Improving - O2 via NC prn - CTA with no evidence of PE 3) Oncology: RLE skin lesion - Imaging from [place] with lytic lesions throughout the calvarium and the cervical spine. 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 - Long discussion with daughter today and she has declined all malignancy workup for the patient stating she would like to get her back to [place] as soon as possible 4) MSK: S/p mechanical fall with facial injuries - No acute fractures per records from [facility] 6) F/E/N: - Sodium controlled diet - Monitor electrolytes 7) Prophylaxis: - Heparin 5,000u sq bid 8) Dispo: - Requires ICU care CODE STATUS: FULL CODE Visit type - Emergency Visit Emergency Visit: Yes ED Registration Date: 03/09/16 Care time: The patient presented to the Emergency Department on the above date and was hospitalized for further evaluation of their emergent condition. - New Patient This patient is new to me today: No - Critical Care Critical Care patient: Yes Total Critical Care Time (in minutes): 45 Critical Care Statement: The care of this patient involved high complexity decision making to prevent further life threatening deterioration of the patient 's condition and/or to evalute & treat vital organ system(s) failure or risk of failure.
--- NOTE | 2016-03-16 16:24 | PN ---
Progress Note (short form) - Note Progress Note: POD#1 PT was oob to chair today, family at bedside. She tolerated a diet, minimal appetite. She complains of some SOB. As per nursing staff, the patient was seen by Dr. Rasheed and her drains were stripped this am by him. Since then 100ml out pt. Vital Signs Period Temp Pulse Resp BP Sys/Sanford Pulse Ox Last 24 Hr 98.4 F-98.9 F 89-104 17-24 93-131/41-70 94-96 chest drains: level at 200ml, serous. CV: RRR Lungs: diffuse rhonci b/l. chest inc c/d/i with dermabond. CBC, BMP 12/23/16 05:27 12/23/16 05:27 Problem List - Problems (1) Pericardial effusion Assessment/Plan: s/p pericardial subxiphoid window, POD#1 cont diet as tolerated chest drains to wall suction as ordered post-op, continue ICU while drains are in place. Incentive spirometer and chest PT OOB to chair pain managment as needed D/w Dr. Rasheed Code(s): I31.3 - PERICARDIAL EFFUSION (NONINFLAMMATORY)
[2016-03-16] MEDS: NYSTATIN/TRIAMCINOLONE TOPICAL CREAM 15 GM TUBE TP SCH ×2 (17:14→21:01)
[2016-03-16] MEDS: BACITRACIN 30 GM TUBE TOPICAL OINTMENT TP SCH (17:15)
[2016-03-17] MEDS ORDERED: PT OWN MED DRAWER 7, Y5N ONE ×3 (05:00→20:04)
[2016-03-17] MEDS: ACETAMINOPHEN 325 MG TABLET (FP) PO PRN (05:10)
[2016-03-17] MEDS: INDOMETHACIN 50 MG CAPSULE PO SCH ×3 (05:24→21:14)
[2016-03-17] MEDS: ALBUTEROL SO4 2.5/IPRATROPIUM 0.5 INH SOL 3 ML VIAL.NEB. NEB SCH ×3 (06:00→17:56)
[2016-03-17 06:09] LABS: MCH 30.3 pg (25.7-33.7); MCHC 31.7 g/dl (32.0-36.0); MEAN CELL VOLUME 95.7 fl (80-96); MEAN PLT VOLUME 10.4 fl (7.5-11.1); PLATELET COUNT 214 K/MM3 (134-434); RDW 16.7 % (11.6-15.6); WHITE BLOOD COUNT 7.3 K/mm3 (4.0-10.0)
[2016-03-17 06:27] LABS: CALCIUM 8.9 mg/dL (8.5-10.1); CREATININE 0.6 mg/dL (0.55-1.02)
--- NOTE | 2016-03-17 08:03 | PN ---
Progress Note (short form) - Note Progress Note: Pt seen and examined yesterday. Mediastinal drains in place. HD stable. There was no evidence of any tamponade, infection, or malignancy in pericardium but pathology is pending. Please record 24 hour output and keep in monitored bed. May ambulate with drains on water seal but otherwise keep on suction. Until Monday 03/19, I will not be available to see this patient but am available on cellphone [phone] Katelynn Bernardo will be covering for emergencies for this patient at [phone]. Thank you.
--- NOTE | 2016-03-17 08:54 | PN ---
Progress Note, Physician Chief Complaint: syst chf, pericardial effusion History of Present Illness: dtr translating: breathing improved after pericardial window; coughing--pain near drain site when coughs no palpitations, syncope - Current Medication List Current Medications: Active Medications Acetaminophen (Tylenol -) 650 mg PO Q6H PRN PRN Reason: FEVER OR PAIN Last Admin: 03/17/16 05:10 Dose: 650 mg Albuterol/Ipratropium (Duoneb -) 1 amp NEB QIDR [facility] Last Admin: 03/17/16 06:00 Dose: 1 amp Bacitracin (Bacitracin -) 1 applic TP DAILY [facility] Last Admin: 03/16/16 17:15 Dose: 1 applic Colchicine (Colcrys -) 0.6 mg PO BID [facility] Last Admin: 03/16/16 21:01 Dose: 0.6 mg Diphenhydramine HCl (Benadryl Injection -) 25 mg IVPUSH Q6H-IV [facility] Last Admin: 03/17/16 01:59 Dose: 25 mg Docusate Sodium (Colace -) 100 mg PO TID PRN PRN Reason: CONSTIPATION Heparin Sodium (Porcine) (Heparin -) 5,000 unit SQ BID [facility] Last Admin: 03/16/16 21:01 Dose: 5,000 unit Indomethacin (Indocin -) 50 mg PO TID [facility] Last Admin: 03/17/16 05:24 Dose: 50 mg Nystatin/Triamcinolone Acetonide (Mycolog Ii Cream -) 1 applic TP BID [facility] Last Admin: 03/16/16 21:01 Dose: 1 applic Pantoprazole Sodium (Protonix -) 40 mg PO DAILY [facility] Last Admin: 03/16/16 09:31 Dose: 40 mg Zinc Acetate/Diphenhydramine (Benadryl 2% Cream) 1 applic TP BID [facility] Last Admin: 03/16/16 21:14 Dose: 1 applic - Objective Vital Signs: Vital Signs Temperature 97.8 F 03/17/16 06:00 Pulse Rate 102 H 03/17/16 06:00 Respiratory Rate 20 03/17/16 06:00 Blood Pressure 147/87 03/17/16 06:00 O2 Sat by Pulse Oximetry (%) 100 03/16/16 22:00 Constitutional: Yes: Well Nourished, No Distress, Calm Cardiovascular: Yes: Regular Rate and Rhythm, S1, S2. No: JVD, Gallop, Murmur, Rub Respiratory: Yes: Regular, Diminished (R base). No: Accessory Muscle Use, Rales , Wheezes Extremities: No: Cold Edema: No Neurological: Yes: Alert. No: Seizure Labs: CBC, BMP 03/17/16 05:00 03/17/16 05:00 INR, PTT INR 1.16 (0.82-1.09) H 03/15/16 05:20 - ....Imaging EKG: Other (tele: NSR; NSVT x 5b; runs of PAT in 120s) Assessment/Plan Echo 03/09/16/: mod-sev dec lvef, inf wall hk, nl rv, mild lae, mild mr/tr, moderate pericardial eff, ?impending tamponade based on ra wall collapse Repeat echo 03/12/16: mild con LVH. mod-sev depressed LV sys func (global), 1+ MR/TR, effusion unchanged, still with early diastolic RA collapse. a/p: 75 f (she is 83 according to family) with hx htn, h/o [place] x 2, dementia and possible recent diagnosis of cancer (unknown type), here with lethargy, weakness found to have systolic cardiomyopathy and pericardial effusion. pericardial effusion, possible acute pericarditis: -reviewed echo, there is a moderate circumferential pericardial eff present but no signs of tamponade. clinically no signs of tamponade as well. -CRP and ESR elevated but ? sec to malignancy; has no friction rub present and none previously documented on exam in prior notes; ecg with mild nonsp ST-Ts-- cont indocin 50 TID (creat stable) but may need to d/c if intolerance, and no findings convincing for acute pericarditis -hemodynamically stable throughout, with no clinical tamponade -s/p pericardial window 03/16 (diagnostic as well) with 500 cc non-bloody fluid removed and drain left in place today. -pericardial drain mgmt per CTS -f/u pericardial fluid cultres, cytology syst chf: -echo here shows mod-sev decreased lvef with inferior hypokinesis, patient with h/o prior [place]--followed by doctors in [place] where she lives, per dtr (here visiting) -no angina or other signs acs, ce's negx3, ecg w/o ischemic changes or significant q waves -03/12: clinically no definite chf, exam equiovocal for JVD--monitor closely with IVF. - 03/13: Now off IVF. CXR with new rt pleural effusion. No change in effusion size or hemodynamics with IVF. gentle diuresis as mentioned above. Strict I/O' s, daily weights. -03/14-: no signs chf. cont to hold lasix and ivfs for now - patient with frequent ectopy on tele 03/10, initiated low dose short acting metoprolol 03/11, but bp dropped slightly and patient with orthostatic symptoms -> stopped. ectopy possibly from pericardial effusion, may resolve effusion improves. monitor on tele. -will defer ? of need for ischemia eval to [place] doctors (dtr states pt plans to return as soon as medically stable)--? LV dysfxn is chronic and stable -low dose BB trial as doing -? KATHLEEN later if bp stable hypoxia: -does not appear to be due to chf -CTA with increased interstitial markings and by review a dilated PA. ? underlying pulmonary disease -pulm following PAT: -runs to 120s on telem, ? related to irritation s/p pericardial window -start low dose lopressor (25 bid)--bp's stable presently lethargy/weakness: -head ct w/o acute findings. likely 2/2 to aforementioned acute illnesses. htn: -bp remains stable here, off anti-hypertensives. crit care time est'd 35min
[2016-03-17] MEDS: PANTOPRAZOLE 40 MG TABLET (FP) PO SCH (09:20)
[2016-03-17] MEDS: HEPARIN NA (PORCINE) 5,000 UNITS/ML 1ML VIAL SQ SCH ×2 (09:20→21:13)
[2016-03-17] MEDS: BACITRACIN 30 GM TUBE TOPICAL OINTMENT TP SCH (09:21)
[2016-03-17] MEDS: COLCHICINE 0.6 MG TABLET (FP) PO SCH ×2 (09:21→21:14)
[2016-03-17] MEDS: NYSTATIN/TRIAMCINOLONE TOPICAL CREAM 15 GM TUBE TP SCH ×2 (09:22→21:16)
--- NOTE | 2016-03-17 09:41 | PN ---
Progress Note (short form) - Note Progress Note: PULMONARY/CCM Pt seen and examined in the ICU. No current complaints. No shortness of breath or chest pain. Last Vital Signs Temp Pulse Resp BP Pulse Ox 97.8 F 102 H 20 147/87 100 03/17/16 06:00 03/17/16 06:00 03/17/16 06:00 03/17/16 06:00 03/16/16 22:00 Intake & Output 03/14/16 03/15/16 03/16/16 03/17/16 23:59 23:59 23:59 23:59 Intake Total 950 2060 1400 500 Output Total 700 1275 550 Balance 250 785 850 500 Weight 110 lb 14.28 oz 111 lb 14.4 oz 111 lb 115 lb Gen: NAD at rest Heart: tachycardic, regular Lung: decreased breath sounds at the bases Abd: soft, nontender Ext: no edema Chest tube: serous drainage CBC, BMP 03/17/16 05:00 03/17/16 05:00 Active Medications Acetaminophen (Tylenol -) 650 mg PO Q6H PRN PRN Reason: FEVER OR PAIN Last Admin: 03/17/16 05:10 Dose: 650 mg Albuterol/Ipratropium (Duoneb -) 1 amp NEB QIDR [facility] Last Admin: 03/17/16 06:00 Dose: 1 amp Bacitracin (Bacitracin -) 1 applic TP DAILY [facility] Last Admin: 03/17/16 09:21 Dose: 1 applic Colchicine (Colcrys -) 0.6 mg PO BID [facility] Last Admin: 03/17/16 09:21 Dose: 0.6 mg Diphenhydramine HCl (Benadryl Injection -) 25 mg IVPUSH Q6H-IV [facility] Last Admin: 03/17/16 09:20 Dose: 25 mg Docusate Sodium (Colace -) 100 mg PO TID PRN PRN Reason: CONSTIPATION Heparin Sodium (Porcine) (Heparin -) 5,000 unit SQ BID [facility] Last Admin: 03/17/16 09:20 Dose: 5,000 unit Indomethacin (Indocin -) 50 mg PO TID [facility] Last Admin: 03/17/16 05:24 Dose: 50 mg Nystatin/Triamcinolone Acetonide (Mycolog Ii Cream -) 1 applic TP BID [facility] Last Admin: 03/17/16 09:22 Dose: 1 applic Pantoprazole Sodium (Protonix -) 40 mg PO DAILY [facility] Last Admin: 03/17/16 09:20 Dose: 40 mg Zinc Acetate/Diphenhydramine (Benadryl 2% Cream) 1 applic TP BID [facility] Last Admin: 03/17/16 09:21 Dose: 1 applic A/P Pericardial Effusion Early Cardiac Tamponade s/p Pericardial Window LV Systolic Dysfunction Hypoxia resolved HTN Dementia r/o Malignancy - monitor chest tube drainage - obtain bone scan - continue empiric colchicine, indomethacin - lasix as needed - monitor urine output, creatinine - incentive spirometry - DVT prophylaxis
[2016-03-17] MEDS: METOPROLOL TARTRATE 25 MG TABLET (FP) PO SCH ×2 (11:03→21:13)
--- NOTE | 2016-03-17 17:46 | PN ---
Progress Note, Physician History of Present Illness: Pt seen and examined at bedside. She appears comfortable. - Current Medication List Current Medications: Active Medications Acetaminophen (Tylenol -) 650 mg PO Q6H PRN PRN Reason: FEVER OR PAIN Last Admin: 03/17/16 05:10 Dose: 650 mg Albuterol/Ipratropium (Duoneb -) 1 amp NEB QIDR [facility] Last Admin: 03/17/16 11:20 Dose: 1 amp Bacitracin (Bacitracin -) 1 applic TP DAILY [facility] Last Admin: 03/17/16 09:21 Dose: 1 applic Colchicine (Colcrys -) 0.6 mg PO BID [facility] Last Admin: 03/17/16 09:21 Dose: 0.6 mg Diphenhydramine HCl (Benadryl Injection -) 25 mg IVPUSH Q6H-IV [facility] Last Admin: 03/17/16 15:40 Dose: 25 mg Docusate Sodium (Colace -) 100 mg PO TID PRN PRN Reason: CONSTIPATION Heparin Sodium (Porcine) (Heparin -) 5,000 unit SQ BID [facility] Last Admin: 03/17/16 09:20 Dose: 5,000 unit Indomethacin (Indocin -) 50 mg PO TID [facility] Last Admin: 03/17/16 13:53 Dose: 50 mg Metoprolol Tartrate (Lopressor -) 25 mg PO BID [facility] Last Admin: 03/17/16 11:03 Dose: 25 mg Nystatin/Triamcinolone Acetonide (Mycolog Ii Cream -) 1 applic TP BID [facility] Last Admin: 03/17/16 09:22 Dose: 1 applic Pantoprazole Sodium (Protonix -) 40 mg PO DAILY [facility] Last Admin: 03/17/16 09:20 Dose: 40 mg Zinc Acetate/Diphenhydramine (Benadryl 2% Cream) 1 applic TP BID [facility] Last Admin: 03/17/16 09:21 Dose: 1 applic - Objective Vital Signs: Vital Signs Temperature 97.8 F 03/17/16 16:00 Pulse Rate 90 03/17/16 16:00 Respiratory Rate 18 03/17/16 16:00 Blood Pressure 125/70 03/17/16 16:00 O2 Sat by Pulse Oximetry (%) 98 03/17/16 11:20 Constitutional: Yes: Calm Eyes: Yes: Conjunctiva Clear HENT: Yes: Atraumatic Cardiovascular: Yes: S1, S2 Respiratory: Yes: On Nasal O2 Gastrointestinal: Yes: Soft Musculoskeletal: Yes: Muscle Weakness Edema: No Neurological: Yes: Oriented Labs: CBC, BMP 03/17/16 05:00 03/17/16 05:00 INR, PTT INR 1.16 (0.82-1.09) H 03/15/16 05:20 Problem List - Problems (1) Hypoxia Code(s): R09.02 - HYPOXEMIA (2) Lethargy Code(s): R53.83 - OTHER FATIGUE (3) Pericardial effusion Code(s): I31.3 - PERICARDIAL EFFUSION (NONINFLAMMATORY) (4) Proteinuria Code(s): R80.9 - PROTEINURIA, UNSPECIFIED (5) Hypertension Code(s): I10 - ESSENTIAL (PRIMARY) HYPERTENSION (6) Skin cancer Code(s): C44.90 - UNSPECIFIED MALIGNANT NEOPLASM OF SKIN, UNSPECIFIED Assessment/Plan Current Medications Generic Name Dose Route Start Last Admin Trade Name Freq PRN Reason Stop Dose Admin Acetaminophen 650 mg 03/11/16 10:54 03/17/16 05:10 Tylenol - PO 650 mg Q6H PRN Administration FEVER OR PAIN Albuterol/Ipratropium 1 amp 03/15/16 14:00 03/17/16 11:20 Duoneb - NEB 1 amp QIDR [facility] Administration Bacitracin 1 applic 03/16/16 15:45 03/17/16 09:21 Bacitracin - TP 1 applic DAILY [facility] Administration Colchicine 0.6 mg 03/10/16 22:00 03/17/16 09:21 Colcrys - PO 0.6 mg BID [facility] Administration Diphenhydramine HCl 25 mg 03/15/16 11:00 03/17/16 15:40 Benadryl Injection - IVPUSH 25 mg Q6H-IV [facility] Administration Docusate Sodium 100 mg 03/16/16 13:09 Colace - PO TID PRN CONSTIPATION Heparin Sodium (Porcine) 5,000 unit 03/16/16 10:00 03/17/16 09:20 Heparin - SQ 5,000 unit BID [facility] Administration Indomethacin 50 mg 03/10/16 14:30 03/17/16 13:53 Indocin - PO 50 mg TID [facility] Administration Metoprolol Tartrate 25 mg 03/17/16 10:00 03/17/16 11:03 Lopressor - PO 25 mg BID [facility] Administration Nystatin/Triamcinolone Acetonide 1 applic 03/16/16 12:45 03/17/16 09:22 Mycolog Ii Cream - TP 1 applic BID [facility] Administration Pantoprazole Sodium 40 mg 03/10/16 15:00 03/17/16 09:20 Protonix - PO 40 mg DAILY [facility] Administration Zinc Acetate/Diphenhydramine 1 applic 03/14/16 10:00 03/17/16 09:21 Benadryl 2% Cream TP 1 applic BID [facility] Administration Impression 1. pericardial effusion 2. hypoxia 3. proteinuria 4. HTN 5. skin cancer 6. congestion on cxr 7. s/p fall and laceration to head Plan - no objection to marian - will workup proteinuria as outpt, marian will help - cxr reviewed - drains in place - discussed with family - will follow Dr Ruth
[2016-03-18] MEDS: ALBUTEROL SO4 2.5/IPRATROPIUM 0.5 INH SOL 3 ML VIAL.NEB. NEB SCH ×5 (00:07→23:10)
[2016-03-18] MEDS: INDOMETHACIN 50 MG CAPSULE PO SCH ×3 (05:40→21:42)
--- NOTE | 2016-03-18 05:48 | PN ---
Progress Note (short form) - Note Progress Note: Note Progress Note: Subjective: The patient is seen and examined at the bedside. Appears comfortable , non-grimacing. Current Medications Generic Name Dose Route Start Last Admin Trade Name Freq PRN Reason Stop Dose Admin Acetaminophen 650 mg 03/11/16 10:54 03/17/16 05:10 Tylenol - PO 650 mg Q6H PRN Administration FEVER OR PAIN Albuterol/Ipratropium 1 amp 03/15/16 14:00 03/18/16 00:07 Duoneb - NEB 1 amp QIDR [facility] Administration Bacitracin 1 applic 03/16/16 15:45 03/17/16 09:21 Bacitracin - TP 1 applic DAILY [facility] Administration Colchicine 0.6 mg 03/10/16 22:00 03/17/16 21:14 Colcrys - PO 0.6 mg BID [facility] Administration Diphenhydramine HCl 25 mg 03/15/16 11:00 03/18/16 02:30 Benadryl Injection - IVPUSH 25 mg Q6H-IV [facility] Administration Docusate Sodium 100 mg 03/16/16 13:09 Colace - PO TID PRN CONSTIPATION Heparin Sodium (Porcine) 5,000 unit 03/16/16 10:00 03/17/16 21:13 Heparin - SQ 5,000 unit BID [facility] Administration Indomethacin 50 mg 03/10/16 14:30 03/18/16 05:40 Indocin - PO Not Given TID [facility] Metoprolol Tartrate 25 mg 03/17/16 10:00 03/17/16 21:13 Lopressor - PO 25 mg BID [facility] Administration Nystatin/Triamcinolone Acetonide 1 applic 03/16/16 12:45 03/17/16 21:16 Mycolog Ii Cream - TP 1 applic BID [facility] Administration Pantoprazole Sodium 40 mg 03/10/16 15:00 03/17/16 09:20 Protonix - PO 40 mg DAILY [facility] Administration Zinc Acetate/Diphenhydramine 1 applic 03/14/16 10:00 03/17/16 21:15 Benadryl 2% Cream TP 1 applic BID [facility] Administration Last Vital Signs Temp Pulse Resp BP Pulse Ox 98.1 F 98 H 20 108/68 96 03/17/16 20:00 03/17/16 20:00 03/17/16 20:00 03/17/16 20:00 03/17/16 20:00 Physical Exam: General: NAD HEENT: bilateral periorbital eccyhmosis. Left mid forehead sutures intact with dried blood. No JVD Lungs: Chest with sternal incision, C/D/I. Pericardial tubes intact. Decreased breath sounds at bases Heart: RRR, S1 S2 Abd: Soft, non-tender, non- distended. BS present in all quads Ext: RUE eccyhmosis. RLE skin lesion Chest tube: serous drainage CBCD WBC 7.3 K/mm3 (4.0-10.0) 03/17/16 05:00 RBC 4.52 M/mm3 (3.60-5.2) 03/17/16 05:00 Hgb 13.7 GM/dL (10.7-15.3) 03/17/16 05:00 Hct 43.3 % (32.4-45.2) 03/17/16 05:00 MCV 95.7 fl (80-96) 03/17/16 05:00 MCHC 31.7 g/dl (32.0-36.0) L 03/17/16 05:00 RDW 16.7 % (11.6-15.6) H 03/17/16 05:00 Plt Count 214 K/MM3 (134-434) 03/17/16 05:00 MPV 10.4 fl (7.5-11.1) 03/17/16 05:00 CMP Sodium 136 mmol/L (136-145) 03/17/16 05:00 Potassium 4.8 mmol/L (3.5-5.1) 03/17/16 05:00 Chloride 102 mmol/L (98-107) 03/17/16 05:00 Carbon Dioxide 35 mmol/L (21-32) H 03/17/16 05:00 Anion Gap -1 (8-16) L 03/17/16 05:00 BUN 13 mg/dL (7-18) D 03/17/16 05:00 Creatinine 0.6 mg/dL (0.55-1.02) 03/17/16 05:00 Creat Clearance w eGFR > 60 (>60) 03/15/16 05:20 Random Glucose 100 mg/dL (74-106) 03/17/16 05:00 Calcium 8.9 mg/dL (8.5-10.1) 03/17/16 05:00 Total Bilirubin 0.7 mg/dL (0.2-1.0) 03/15/16 05:20 AST 20 U/L (15-37) D 03/15/16 05:20 ALT 22 U/L (12-78) 03/15/16 05:20 Alkaline Phosphatase 94 U/L (45-117) 03/15/16 05:20 Total Protein 6.2 g/dl (6.4-8.2) L 03/15/16 05:20 Albumin 2.8 g/dl (3.4-5.0) L 03/15/16 05:20 CARDIAC ENZYMES Creatine Kinase 30 IU/L (26-192) 03/09/16 10:36 Troponin I < 0.02 ng/ml (0.00-0.05) 03/09/16 10:36 Microbiology 03/15/16 13:03 Gram Stain - Final Tissue-Other Tissue Culture - Final NO GROWTH OF AEROBIC ORGANISMS AFTER 48 HOURS INCUBATION Anaerobic Culture - Final NO ANAEROBES WERE ISOLATED 03/15/16 12:19 Gram Stain - Final Pericardial Fluid Body Fluid Culture - Final NO GROWTH OF AEROBIC ORGANISMS AFTER 48 HOURS INCUBATION Anaerobic Culture - Final NO ANAEROBES WERE ISOLATED Assessment: This is a 75-year-old female with a past medical history of: Hypertension, MIx2, hx of multiple falls (most recent 03/05/16). Who presented to the ED with decrease PO intake, lethargy, dizziness and was admitted for further evaluation and management of her emergent condition. Plan: 1) Cardiology: Moderate pericardial effusion s/p subxiphoid pericardial window - F/u pericardial fluid for cytology and culture - Monitor drain output - CT surgery following - Contract Negotiation Specialist following Chest pain - CTA chest negative for PE - Hx of [place] x2 in the past - Trop x3 negative - No signs of ACS - Cardiology following Systolic heart failure - Echo reviewed moderate to severe lvef with inferior wall hypokinesis - Will hold off on starting beta oc or marian-i given finding of pericardial effusion - Cardiology following 2) Pulm: Acute hypoxia - Improving - O2 via NC prn - CTA with no evidence of PE 3) Oncology: RLE skin lesion - Imaging from [place] with lytic lesions throughout the calvarium and the cervical spine. 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 - Prior discussion with daughter by day hospitalist AVIONICS INTEGRATION ENGINEER, she has declined all malignancy workup for the patient stating she would like to get her back to [place] as soon as possible 4) MSK: S/p mechanical fall with facial injuries - No acute fractures per records from [facility] 6) F/E/N: - Sodium controlled diet - Monitor electrolytes 7) Prophylaxis: - Heparin 5,000u sq bid 8) Dispo: - Requires ICU care CODE STATUS: FULL CODE Visit type - Emergency Visit Emergency Visit: No - New Patient This patient is new to me today: Yes Date on this admission: 03/17/16 - Critical Care Critical Care patient: Yes Total Critical Care Time (in minutes): 31 Critical Care Statement: The care of this patient involved high complexity decision making to prevent further life threatening deterioration of the patient 's condition and/or to evalute & treat vital organ system(s) failure or risk of failure.
[2016-03-18 07:04] LABS: BASOPHIL 0.4 % (0-2.0); EOSINOPHIL 1.5 % (0-4.5); MCHC 32.3 g/dl (32.0-36.0); MEAN CELL VOLUME 96.1 fl (80-96); MEAN PLT VOLUME 9.9 fl (7.5-11.1); NEUTROPHILS 85.2 % (42.8-82.8); PLATELET COUNT 193 K/MM3 (134-434); RDW 16.8 % (11.6-15.6); WHITE BLOOD COUNT 12.9 K/mm3 (4.0-10.0)
[2016-03-18 07:34] LABS: ALBUMIN 2.7 g/dl (3.4-5.0); ANION GAP 2 (8-16); CALCIUM 8.9 mg/dL (8.5-10.1); CO2 34 mmol/L (21-32); GLUCOSE,RANDOM 123 mg/dL (74-106); PHOSPHOROUS 2.5 mg/dL (2.5-4.9); SGOT/AST 14 U/L (15-37)
[2016-03-18 07:36] LABS: ALK PHOS 118 U/L (45-117); BILIRUBIN,TOTAL 0.8 mg/dL (0.2-1.0); CREATININE 0.6 mg/dL (0.55-1.02); SGPT/ALT 17 U/L (12-78); TOT PROT 6.4 g/dl (6.4-8.2)
--- NOTE | 2016-03-18 08:31 | PN ---
Physical Exam: SUBJECTIVE: Patient seen and examined. Coughing. OBJECTIVE: Vital Signs Period Temp Pulse Resp BP Sys/[place] Pulse Ox Last 24 Hr 97.8 F-98.4 F 90-105 16-26 94-130/45-98 95-98 Physical Exam: General: NAD, on 5L NC, breathing comfortably HEENT: bilateral resolving periorbital eccyhmosis. Left mid forehead sutures intact with dried blood Lungs: Chest with sternal incision, C/D/I. Pericardial tube intact. Bilateral BS Heart: tachycardic, S1 S2 Abd: Soft, non-tender, non-distended. BS present Ext: RUE eccyhmosis. RLE skin lesion Chest tube: serous drainage Laboratory Results - last 24 hr 03/17/16 03/18/16 03/18/16 20:50 05:35 05:35 WBC 12.9 H D RBC 4.23 Hgb 13.1 Hct 40.7 MCV 96.1 H MCHC 32.3 RDW 16.8 H Plt Count 193 MPV 9.9 Neutrophils % 85.2 H D Lymphocytes % 3.5 L D Monocytes % 9.4 Eosinophils % 1.5 Basophils % 0.4 Sodium 138 Potassium 4.4 Chloride 102 Carbon Dioxide 34 H Anion Gap 2 L BUN 19 H D Creatinine 0.6 Creat Clearance w eGFR > 60 POC Glucometer [phone] Random Glucose 123 H D Calcium 8.9 Phosphorus 2.5 D Magnesium 2.0 Total Bilirubin 0.8 AST 14 L D ALT 17 D Alkaline Phosphatase 118 H D Total Protein 6.4 Albumin 2.7 L 03/18/16 05:59 WBC RBC Hgb Hct MCV MCHC RDW Plt Count MPV Neutrophils % Lymphocytes % Monocytes % Eosinophils % Basophils % Sodium Potassium Chloride Carbon Dioxide Anion Gap BUN Creatinine Creat Clearance w eGFR POC Glucometer [phone] Random Glucose Calcium Phosphorus Magnesium Total Bilirubin AST ALT Alkaline Phosphatase Total Protein Albumin Active Medications Generic Name Dose Route Start Last Admin Trade Name Freq PRN Reason Stop Dose Admin Acetaminophen 650 mg 03/11/16 10:54 03/17/16 05:10 Tylenol - PO 650 mg Q6H PRN Administration FEVER OR PAIN Albuterol/Ipratropium 1 amp 03/15/16 14:00 03/18/16 06:00 Duoneb - NEB 1 amp QIDR [facility] Administration Bacitracin 1 applic 03/16/16 15:45 03/17/16 09:21 Bacitracin - TP 1 applic DAILY [facility] Administration Colchicine 0.6 mg 03/10/16 22:00 03/17/16 21:14 Colcrys - PO 0.6 mg BID [facility] Administration Diphenhydramine HCl 25 mg 03/15/16 11:00 03/18/16 02:30 Benadryl Injection - IVPUSH 25 mg Q6H-IV [facility] Administration Docusate Sodium 100 mg 03/16/16 13:09 Colace - PO TID PRN CONSTIPATION Heparin Sodium (Porcine) 5,000 unit 03/16/16 10:00 03/17/16 21:13 Heparin - SQ 5,000 unit BID [facility] Administration Indomethacin 50 mg 03/10/16 14:30 03/18/16 05:40 Indocin - PO Not Given TID [facility] Metoprolol Tartrate 25 mg 03/17/16 10:00 03/17/16 21:13 Lopressor - PO 25 mg BID [facility] Administration Nystatin/Triamcinolone Acetonide 1 applic 03/16/16 12:45 03/17/16 21:16 Mycolog Ii Cream - TP 1 applic BID [facility] Administration Pantoprazole Sodium 40 mg 03/10/16 15:00 03/17/16 09:20 Protonix - PO 40 mg DAILY [facility] Administration Zinc Acetate/Diphenhydramine 1 applic 03/14/16 10:00 03/17/16 21:15 Benadryl 2% Cream TP 1 applic BID [facility] Administration ASSESSMENT/PLAN: This is a 75-year-old female with a H Hypertension, MIx2, hx of multiple falls (most recent 03/05/16) who presented to the ED with decrease PO intake, lethargy, dizziness and was admitted for further evaluation and management of her emergent condition. Plan: 1) Cardiology: Moderate pericardial effusion s/p subxiphoid pericardial window - F/u pericardial fluid for cytology and culture - negative thus far - Monitor drain output - CT surgery following - Proof Machine Operator Supervisor following Chest pain - CTA chest negative for PE - Hx of [place] x2 in the past - Trop x3 negative - No signs of ACS - Cardiology following Systolic heart failure - Echo reviewed moderate to severe lvef with inferior wall hypokinesis - b-oc started, would benefit from KATHLEEN - Cardiology following 2) Pulm: Acute hypoxia - Improving - O2 via NC prn - CTA with no evidence of PE -robitussin added for cough, CXR without any new pathology 3) Oncology: RLE skin lesion - Imaging from [place] with lytic lesions throughout the calvarium and the cervical spine. 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 - Prior discussion with daughter by day hospitalist LENS POLISHER, she has declined all malignancy workup for the patient stating she would like to get her back to [place] as soon as possible 4) MSK: S/p mechanical fall with facial injuries - No acute fractures per records from [facility] 5) Prophylaxis: - Heparin 5,000u sq bid 6) Dispo: - Requires ICU care CODE STATUS: FULL CODE Visit type - Emergency Visit Emergency Visit: Yes ED Registration Date: 03/09/16 Care time: The patient presented to the Emergency Department on the above date and was hospitalized for further evaluation of their emergent condition. - New Patient This patient is new to me today: Yes Date on this admission: 03/18/16 - Critical Care Critical Care patient: Yes Total Critical Care Time (in minutes): 30 Critical Care Statement: The care of this patient involved high complexity decision making to prevent further life threatening deterioration of the patient 's condition and/or to evalute & treat vital organ system(s) failure or risk of failure.
--- NOTE | 2016-03-18 08:40 | PN ---
Progress Note, Physician Chief Complaint: syst chf, peric eff History of Present Illness: no ukrainian (and no family at bedside today); appears comfortable - Current Medication List Current Medications: Active Medications Acetaminophen (Tylenol -) 650 mg PO Q6H PRN PRN Reason: FEVER OR PAIN Last Admin: 03/17/16 05:10 Dose: 650 mg Albuterol/Ipratropium (Duoneb -) 1 amp NEB QIDR [facility] Last Admin: 03/18/16 06:00 Dose: 1 amp Bacitracin (Bacitracin -) 1 applic TP DAILY [facility] Last Admin: 03/17/16 09:21 Dose: 1 applic Colchicine (Colcrys -) 0.6 mg PO BID [facility] Last Admin: 03/17/16 21:14 Dose: 0.6 mg Diphenhydramine HCl (Benadryl Injection -) 25 mg IVPUSH Q6H-IV [facility] Last Admin: 03/18/16 02:30 Dose: 25 mg Docusate Sodium (Colace -) 100 mg PO TID PRN PRN Reason: CONSTIPATION Guaifenesin (Diabetic Tussin Dm -) 5 ml PO Q6H PRN PRN Reason: COUGH Heparin Sodium (Porcine) (Heparin -) 5,000 unit SQ BID [facility] Last Admin: 03/17/16 21:13 Dose: 5,000 unit Indomethacin (Indocin -) 50 mg PO TID [facility] Last Admin: 03/18/16 05:40 Dose: Not Given Metoprolol Tartrate (Lopressor -) 25 mg PO BID [facility] Last Admin: 03/17/16 21:13 Dose: 25 mg Nystatin/Triamcinolone Acetonide (Mycolog Ii Cream -) 1 applic TP BID [facility] Last Admin: 03/17/16 21:16 Dose: 1 applic Pantoprazole Sodium (Protonix -) 40 mg PO DAILY [facility] Last Admin: 03/17/16 09:20 Dose: 40 mg Zinc Acetate/Diphenhydramine (Benadryl 2% Cream) 1 applic TP BID [facility] Last Admin: 03/17/16 21:15 Dose: 1 applic - Objective Vital Signs: Vital Signs Temperature 98.2 F 03/18/16 08:00 Pulse Rate 105 H 03/18/16 08:00 Respiratory Rate 24 03/18/16 08:00 Blood Pressure 125/63 03/18/16 08:00 O2 Sat by Pulse Oximetry (%) 95 03/18/16 08:10 Constitutional: Yes: Well Nourished, No Distress, Calm Cardiovascular: Yes: Regular Rate and Rhythm, S1, S2. No: JVD, Gallop, Murmur, Rub Respiratory: Yes: Regular, CTA Bilaterally. No: Accessory Muscle Use, Rales, Wheezes Extremities: No: Cold Edema: No Neurological: Yes: Alert. No: Seizure Psychiatric: No: Agitated Labs: CBC, BMP 03/18/16 05:35 03/18/16 05:35 INR, PTT INR 1.16 (0.82-1.09) H 03/15/16 05:20 - ....Imaging EKG: Other (telem: NSR, no PAT/PSVT) Assessment/Plan Echo 03/09/16/: mod-sev dec lvef, inf wall hk, nl rv, mild lae, mild mr/tr, moderate pericardial eff, ?impending tamponade based on ra wall collapse Repeat echo 03/12/16: mild con LVH. mod-sev depressed LV sys func (global), 1+ MR/TR, effusion unchanged, still with early diastolic RA collapse. a/p: 75 f (she is 83 according to family) with hx htn, h/o [place] x 2, dementia and possible recent diagnosis of cancer (unknown type), here with lethargy, weakness found to have systolic cardiomyopathy and pericardial effusion. pericardial effusion, possible acute pericarditis: -reviewed echo, there is a moderate circumferential pericardial eff present but no signs of tamponade. clinically no signs of tamponade as well. -CRP and ESR elevated but ? sec to malignancy; has no friction rub present and none previously documented on exam in prior notes; ecg with mild nonsp ST-Ts-- if creat remains stable and no GI upset, will cont indocin 50 TID and taper after 4-6 weeks course -hemodynamically stable throughout, with no clinical tamponade -s/p pericardial window 03/16 (diagnostic as well) with 500 cc non-bloody fluid removed and drain left in place today. -pericardial drain mgmt per CTS -f/u pericardial fluid cultures, cytology syst chf: -echo here shows mod-sev decreased lvef with inferior hypokinesis, patient with h/o prior [place]--followed by doctors in [place] where she lives, per dtr (here visiting) -no angina or other signs acs, ce's negx3, ecg w/o ischemic changes or significant q waves -03/12: clinically no definite chf, exam equiovocal for JVD--monitor closely with IVF. - 03/13: Now off IVF. CXR with new rt pleural effusion. No change in effusion size or hemodynamics with IVF. gentle diuresis as mentioned above. Strict I/O' s, daily weights. -03/14-: no signs chf. cont to hold lasix and ivfs for now -no overt chf at present--deferring lasix -will defer ? of need for ischemia eval to [place] doctors (dtr states pt plans to return as soon as medically stable)--? LV dysfxn is chronic and stable -low dose BB trial as doing -? KATHLEEN later if bp stable hypoxia: -does not appear to be due to chf -CTA with increased interstitial markings and by review a dilated PA. ? underlying pulmonary disease -pulm following PAT: -runs to 120s on telem, ? related to irritation s/p pericardial window -resolved since started lopressor 25 bid, BPs tolerating -cont same meds lethargy/weakness: -head ct w/o acute findings. likely 2/2 to aforementioned acute illnesses. htn: -bp remains stable here, off anti-hypertensives. crit care time est'd 35min
[2016-03-18] MEDS ORDERED: PT OWN MED DRAWER 7, Y5N ONE ×2 (09:46→14:09)
--- NOTE | 2016-03-18 10:11 | PN ---
Progress Note (short form) - Note Progress Note: PULMONARY/CCM Pt seen and examined in the ICU. Appears comfortable. No current complaints. No shortness of breath or chest pain. Last Vital Signs Temp Pulse Resp BP Pulse Ox 98.2 F 105 H 24 125/63 95 03/18/16 08:00 03/18/16 08:00 03/18/16 08:00 03/18/16 08:00 03/18/16 08:10 Intake & Output 03/15/16 03/16/16 03/17/16 03/18/16 23:59 23:59 23:59 23:59 Intake Total 2060 1400 1600 50 Output Total 1275 550 125 15 Balance 787 529 3959 35 Weight 111 lb 14.4 oz 111 lb 115 lb 117 lb Gen: NAD at rest Heart: tachycardic, regular Lung: decreased breath sounds at the bases Abd: soft, nontender Ext: no edema Chest tube: serous drainage CBC, BMP 03/18/16 05:35 03/18/16 05:35 Active Medications Acetaminophen (Tylenol -) 650 mg PO Q6H PRN PRN Reason: FEVER OR PAIN Last Admin: 03/17/16 05:10 Dose: 650 mg Albuterol/Ipratropium (Duoneb -) 1 amp NEB QIDR [facility] Last Admin: 03/18/16 06:00 Dose: 1 amp Bacitracin (Bacitracin -) 1 applic TP DAILY [facility] Last Admin: 03/17/16 09:21 Dose: 1 applic Colchicine (Colcrys -) 0.6 mg PO BID [facility] Last Admin: 03/17/16 21:14 Dose: 0.6 mg Diphenhydramine HCl (Benadryl Injection -) 25 mg IVPUSH Q6H-IV [facility] Last Admin: 03/18/16 09:23 Dose: 25 mg Docusate Sodium (Colace -) 100 mg PO TID PRN PRN Reason: CONSTIPATION Guaifenesin (Diabetic Tussin Dm -) 5 ml PO Q6H PRN PRN Reason: COUGH Heparin Sodium (Porcine) (Heparin -) 5,000 unit SQ BID [facility] Last Admin: 03/17/16 21:13 Dose: 5,000 unit Indomethacin (Indocin -) 50 mg PO TID [facility] Last Admin: 03/18/16 05:40 Dose: Not Given Metoprolol Tartrate (Lopressor -) 25 mg PO BID [facility] Last Admin: 03/17/16 21:13 Dose: 25 mg Nystatin/Triamcinolone Acetonide (Mycolog Ii Cream -) 1 applic TP BID [facility] Last Admin: 03/17/16 21:16 Dose: 1 applic Pantoprazole Sodium (Protonix -) 40 mg PO DAILY [facility] Last Admin: 03/17/16 09:20 Dose: 40 mg Zinc Acetate/Diphenhydramine (Benadryl 2% Cream) 1 applic TP BID [facility] Last Admin: 03/17/16 21:15 Dose: 1 applic A/P Pericardial Effusion Early Cardiac Tamponade s/p Pericardial Window LV Systolic Dysfunction Hypoxia resolved HTN Dementia r/o Malignancy - monitor chest tube drainage - obtain bone scan - continue empiric colchicine, indomethacin - lasix as needed - monitor urine output, creatinine - incentive spirometry - DVT prophylaxis
[2016-03-18] MEDS: BACITRACIN 30 GM TUBE TOPICAL OINTMENT TP SCH (10:13)
[2016-03-18] MEDS: NYSTATIN/TRIAMCINOLONE TOPICAL CREAM 15 GM TUBE TP SCH ×2 (10:15→21:43)
[2016-03-18] MEDS: COLCHICINE 0.6 MG TABLET (FP) PO SCH ×2 (10:15→21:41)
[2016-03-18] MEDS: PANTOPRAZOLE 40 MG TABLET (FP) PO SCH (10:23)
[2016-03-18] MEDS: HEPARIN NA (PORCINE) 5,000 UNITS/ML 1ML VIAL SQ SCH ×2 (10:23→21:42)
[2016-03-18] MEDS: METOPROLOL TARTRATE 25 MG TABLET (FP) PO SCH ×2 (10:23→21:42)
[2016-03-18] MEDS: guaiFENesin/D-M SUGAR-FREE/ACLHOL-FREE 118 ML BOTTLE PO PRN ×2 (10:26→16:46)
[2016-03-18] MEDS: DOCUSATE SODIUM 100 MG CAPSULE (FP) PO PRN (10:42)
[2016-03-19] MEDS: INDOMETHACIN 50 MG CAPSULE PO SCH ×3 (05:23→22:04)
[2016-03-19] MEDS: ALBUTEROL SO4 2.5/IPRATROPIUM 0.5 INH SOL 3 ML VIAL.NEB. NEB SCH ×3 (06:07→18:53)
[2016-03-19 06:08] LABS: BASOPHIL 0.1 % (0-2.0); EOSINOPHIL 0.7 % (0-4.5); MCH 30.7 pg (25.7-33.7); MEAN CELL VOLUME 95.9 fl (80-96); MEAN PLT VOLUME 10.5 fl (7.5-11.1); NEUTROPHILS 85.8 % (42.8-82.8); PLATELET COUNT 207 K/MM3 (134-434); RDW 16.8 % (11.6-15.6); WHITE BLOOD COUNT 13.4 K/mm3 (4.0-10.0)
[2016-03-19 07:01] LABS: ALBUMIN 2.6 g/dl (3.4-5.0); ALK PHOS 122 U/L (45-117); ANION GAP 7 (8-16); BILIRUBIN,TOTAL 0.7 mg/dL (0.2-1.0); CALCIUM 8.8 mg/dL (8.5-10.1); CO2 32 mmol/L (21-32); CREATININE 0.6 mg/dL (0.55-1.02); GLUCOSE,RANDOM 123 mg/dL (74-106); SGOT/AST 11 U/L (15-37); SGPT/ALT 13 U/L (12-78); TOT PROT 6.2 g/dl (6.4-8.2)
--- NOTE | 2016-03-19 09:34 | PN ---
Progress Note (short form) - Note Progress Note: PULM/CCM Progress Note Patient Name: DANETTE NUÑEZ Date of : 1940 Patient Status: Inpatient Attending Provider: Lyn Hall Patient seen and examined in the ICU. Awake and alert. Some mild improvement in anterior chest discomfort according tpo her daughter. Output yesterday about 35cc. CXR: No gross change OBJECTIVE: Intake & Output 03/16/16 03/17/16 03/18/16 03/19/16 23:59 23:59 23:59 23:59 Intake Total 1400 1600 1030 100 Output Total 550 125 335 20 Balance 850 1475 695 80 Weight 111 lb 115 lb 117 lb 119 lb 9.6 oz Last Vital Signs Temp Pulse Resp BP Pulse Ox 98.8 F 114 H 21 126/77 95 03/19/16 06:00 03/19/16 06:00 03/19/16 06:00 03/19/16 06:00 03/18/16 21:00 Active Medications Acetaminophen (Tylenol -) 650 mg PO Q6H PRN PRN Reason: FEVER OR PAIN Last Admin: 03/17/16 05:10 Dose: 650 mg Albuterol/Ipratropium (Duoneb -) 1 amp NEB QIDR [facility] Last Admin: 03/19/16 06:07 Dose: 1 amp Bacitracin (Bacitracin -) 1 applic TP DAILY [facility] Last Admin: 03/18/16 10:13 Dose: 1 applic Colchicine (Colcrys -) 0.6 mg PO BID [facility] Last Admin: 03/18/16 21:41 Dose: 0.6 mg Diphenhydramine HCl (Benadryl Injection -) 25 mg IVPUSH Q6H-IV [facility] Last Admin: 03/19/16 02:46 Dose: 25 mg Docusate Sodium (Colace -) 100 mg PO TID PRN PRN Reason: CONSTIPATION Last Admin: 03/18/16 10:42 Dose: 100 mg Guaifenesin (Diabetic Tussin Dm -) 5 ml PO Q6H PRN PRN Reason: COUGH Last Admin: 03/18/16 16:46 Dose: 5 ml Heparin Sodium (Porcine) (Heparin -) 5,000 unit SQ BID [facility] Last Admin: 03/18/16 21:42 Dose: 5,000 unit Indomethacin (Indocin -) 50 mg PO TID [facility] Last Admin: 03/19/16 05:23 Dose: 50 mg Metoprolol Tartrate (Lopressor -) 25 mg PO BID [facility] Last Admin: 03/18/16 21:42 Dose: 25 mg Nystatin/Triamcinolone Acetonide (Mycolog Ii Cream -) 1 applic TP BID [facility] Last Admin: 03/18/16 21:43 Dose: 1 applic Pantoprazole Sodium (Protonix -) 40 mg PO DAILY [facility] Last Admin: 03/18/16 10:23 Dose: 40 mg Zinc Acetate/Diphenhydramine (Benadryl 2% Cream) 1 applic TP BID [facility] Last Admin: 03/18/16 21:41 Dose: 1 applic Constitutional: Yes: Awake and alert Eyes: Yes: Other (bilateral contusion of eyes) Neck: Yes: Trachea Midline Cardiovascular: Yes: Regular Rate and Rhythm Respiratory: Yes: Scattered rhonchi y Gastrointestinal: Yes: WNL, Normal Bowel Sounds, Soft Extremities: Yes: WNL Edema: No Integumentary: Yes: ecchymosis Neurological: Yes: Non-focal ...Motor Strength: WNL Labs: Laboratory Results - last 24 hr 03/19/16 03/19/16 05:05 05:05 WBC 13.4 H RBC 3.95 Hgb 12.1 Hct 37.9 MCV 95.9 MCHC 32.0 RDW 16.8 H Plt Count 207 MPV 10.5 Neutrophils % 85.8 H Lymphocytes % 4.2 L Monocytes % 9.2 Eosinophils % 0.7 Basophils % 0.1 Sodium 142 Potassium 4.8 Chloride 103 Carbon Dioxide 32 Anion Gap 7 L BUN 21 H Creatinine 0.6 Creat Clearance w eGFR > 60 Random Glucose 123 H Calcium 8.8 Phosphorus 3.0 Magnesium 2.0 Total Bilirubin 0.7 AST 11 L D ALT 13 D Alkaline Phosphatase 122 H Total Protein 6.2 L Albumin 2.6 L Assessment/Plan Pericardial effusion: -> (?) Viral Pericarditis Suspected Viral Syndrome CHF by history HTN S/P Mechanical Fall Skin lesion Colchicine BID Indocin TID PO as tolerated O2 as needed Strict I&O Pericardial tube per CTS Dr Ospina CCTime 35"
[2016-03-19] MEDS ORDERED: PT OWN MED DRAWER 7, Y5N ONE ×2 (10:18→19:38)
[2016-03-19] MEDS: PANTOPRAZOLE 40 MG TABLET (FP) PO SCH (10:30)
[2016-03-19] MEDS: METOPROLOL TARTRATE 25 MG TABLET (FP) PO SCH ×2 (10:30→22:04)
[2016-03-19] MEDS: HEPARIN NA (PORCINE) 5,000 UNITS/ML 1ML VIAL SQ SCH ×2 (10:30→22:03)
[2016-03-19] MEDS: BACITRACIN 30 GM TUBE TOPICAL OINTMENT TP SCH (10:30)
[2016-03-19] MEDS: NYSTATIN/TRIAMCINOLONE TOPICAL CREAM 15 GM TUBE TP SCH ×2 (10:30→22:54)
[2016-03-19] MEDS: DOCUSATE SODIUM 100 MG CAPSULE (FP) PO PRN (10:30)
[2016-03-19] MEDS: COLCHICINE 0.6 MG TABLET (FP) PO SCH ×2 (10:31→22:05)
--- NOTE | 2016-03-19 12:02 | PN ---
Progress Note (short form) - Note Progress Note: POD #4 s/p pericardial window Drainage <50cc/day. Pathology pending. HD stable. Tubes removed. F/U prn.
--- NOTE | 2016-03-19 12:04 | PN ---
Progress Note (short form) - Note Progress Note: s: no turkmen; daughter here translating; pt feels general weakness and fatigue. no cp or sob or dizzy. still with pericardiapl drain in place. o: Vital Signs Period Temp Pulse Resp BP Sys/Sanford Pulse Ox Last 24 Hr 98.2 F-98.9 F 94-114 18-22 115-142/62-86 95-95 Constitutional: Yes: No Distress, Calm Eyes: No: Sclera Icterus Cardiovascular: Yes: Regular Rate and Rhythm, no jvd, S1, S2,. No: Gallop, Murmur, Rub Respiratory: Yes: cta bl No: Accessory Muscle Use, Rales, Wheezes Gastrointestinal: Yes: Normal Bowel Sounds, Soft. No: Tenderness Extremities: No: Cold Edema: No Integumentary: No: Jaundice diaphoresis Neurological: Yes: Alert. No: Seizure Psychiatric: No: Agitated Current Medications Generic Name Dose Route Start Last Admin Trade Name Freq PRN Reason Stop Dose Admin Acetaminophen 650 mg 03/11/16 10:54 03/17/16 05:10 Tylenol - PO 650 mg Q6H PRN Administration FEVER OR PAIN Albuterol/Ipratropium 1 amp 03/15/16 14:00 03/19/16 11:28 Duoneb - NEB 1 amp QIDR [facility] Administration Bacitracin 1 applic 03/16/16 15:45 03/19/16 10:30 Bacitracin - TP 1 applic DAILY [facility] Administration Colchicine 0.6 mg 03/10/16 22:00 03/19/16 10:31 Colcrys - PO 0.6 mg BID [facility] Administration Diphenhydramine HCl 25 mg 03/15/16 11:00 03/19/16 10:28 Benadryl Injection - IVPUSH 25 mg Q6H-IV [facility] Administration Docusate Sodium 100 mg 03/16/16 13:09 03/19/16 10:30 Colace - PO 100 mg TID PRN Administration CONSTIPATION Guaifenesin 5 ml 03/18/16 08:32 03/18/16 16:46 Diabetic Tussin Dm - PO 5 ml Q6H PRN Administration COUGH Heparin Sodium (Porcine) 5,000 unit 03/16/16 10:00 03/19/16 10:30 Heparin - SQ 5,000 unit BID [facility] Administration Indomethacin 50 mg 03/10/16 14:30 03/19/16 05:23 Indocin - PO 50 mg TID [facility] Administration Metoprolol Tartrate 25 mg 03/17/16 10:00 03/19/16 10:30 Lopressor - PO 25 mg BID [facility] Administration Nystatin/Triamcinolone Acetonide 1 applic 03/16/16 12:45 03/19/16 10:30 Mycolog Ii Cream - TP 1 applic BID [facility] Administration Pantoprazole Sodium 40 mg 03/10/16 15:00 03/19/16 10:30 Protonix - PO 40 mg DAILY [facility] Administration Zinc Acetate/Diphenhydramine 1 applic 03/14/16 10:00 03/19/16 10:31 Benadryl 2% Cream TP 1 applic BID [facility] Administration Laboratory Last Values WBC 13.4 K/mm3 (4.0-10.0) H 03/19/16 05:05 RBC 3.95 M/mm3 (3.60-5.2) 03/19/16 05:05 Hgb 12.1 GM/dL (10.7-15.3) 03/19/16 05:05 Hct 37.9 % (32.4-45.2) 03/19/16 05:05 MCV 95.9 fl (80-96) 03/19/16 05:05 MCHC 32.0 g/dl (32.0-36.0) 03/19/16 05:05 RDW 16.8 % (11.6-15.6) H 03/19/16 05:05 Plt Count 207 K/MM3 (134-434) 03/19/16 05:05 MPV 10.5 fl (7.5-11.1) 03/19/16 05:05 Neutrophils % 85.8 % (42.8-82.8) H 03/19/16 05:05 Lymphocytes % 4.2 % (8-40) L 03/19/16 05:05 Monocytes % 9.2 % (3.8-10.2) 03/19/16 05:05 Eosinophils % 0.7 % (0-4.5) 03/19/16 05:05 Basophils % 0.1 % (0-2.0) 03/19/16 05:05 Platelet Estimate Slt decreased (NORMAL) 03/09/16 19:55 Polychromasia 1+ 03/09/16 19:55 Hypochromic-Microcytic 1+ 03/09/16 19:55 Anisocytosis 1+ 03/09/16 19:55 Macrocytosis 1+ 03/09/16 19:55 Morphology Comment Slide scanned 03/09/16 19:55 ESR 53 mm/hr (0-30) H 03/11/16 05:20 INR 1.16 (0.82-1.09) H 03/15/16 05:20 PTT (Actin FS) 29.3 SECONDS (26.9-34.4) 03/15/16 05:20 Puncture Site Left radial 03/09/16 12:15 ABG pH 7.44 (7.35-7.45) 03/09/16 12:15 ABG pCO2 at Pt Temp 42.5 mmHg (35-45) 03/09/16 12:15 ABG pO2 at Pt Temp 72.9 mmHg (70-100) 03/09/16 12:15 ABG HCO3 28.4 meq/L (22-26) H 03/09/16 12:15 ABG O2 Sat (Measured) 95.1 % (90-98.9) 03/09/16 12:15 ABG O2 Content 17.7 % vol (15-22) 03/09/16 12:15 ABG Base Excess 4.2 meq/l (-2-2) H 03/09/16 12:15 Obdulio Test Positive 03/09/16 12:15 O2 Delivery Device Ventimask 03/09/16 12:15 Oxygen Flow Rate 40% 03/09/16 12:15 PEEP 0.0 cmH2O 03/09/16 12:15 Sodium 142 mmol/L (136-145) 03/19/16 05:05 Potassium 4.8 mmol/L (3.5-5.1) 03/19/16 05:05 Chloride 103 mmol/L (98-107) 03/19/16 05:05 Carbon Dioxide 32 mmol/L (21-32) 03/19/16 05:05 Anion Gap 7 (8-16) L 03/19/16 05:05 BUN 21 mg/dL (7-18) H 03/19/16 05:05 Creatinine 0.6 mg/dL (0.55-1.02) 03/19/16 05:05 Creat Clearance w eGFR > 60 (>60) 03/19/16 05:05 POC Glucometer 289.23261 UNITS (()) 03/18/16 05:59 Random Glucose 123 mg/dL (74-106) H 03/19/16 05:05 Hemoglobin A1c % 5.8 % (4.8-6.0) 03/09/16 06:30 Calcium 8.8 mg/dL (8.5-10.1) 03/19/16 05:05 Phosphorus 3.0 mg/dL (2.5-4.9) 03/19/16 05:05 Magnesium 2.0 mg/dL (1.8-2.4) 03/19/16 05:05 Total Bilirubin 0.7 mg/dL (0.2-1.0) 03/19/16 05:05 AST 11 U/L (15-37) L D 03/19/16 05:05 ALT 13 U/L (12-78) D 03/19/16 05:05 Alkaline Phosphatase 122 U/L (45-117) H 03/19/16 05:05 Creatine Kinase 30 IU/L (26-192) 03/09/16 10:36 Troponin I < 0.02 ng/ml (0.00-0.05) 03/09/16 10:36 C-Reactive Protein 8.4 MG/DL (0.00-0.3) H 03/11/16 05:20 B-Natriuretic Peptide 834.34 pg/ml (5-450) H 03/08/16 19:38 Prot Electrophoresis (.) 03/14/16 06:00 Serum Total Protein 5.8 g/dL (6.0-8.5) L 03/14/16 06:00 Total Protein 6.2 g/dl (6.4-8.2) L 03/19/16 05:05 Albumin 2.6 g/dl (3.4-5.0) L 03/19/16 05:05 Globulin 3.1 g/dL (2.2-3.9) 03/14/16 06:00 Albumin/Globulin Ratio 0.9 (0.7-1.7) 03/14/16 06:00 Ffody-7-Qxgsjzlav 0.3 gm/dL (0.0-0.4) 03/14/16 06:00 Dvuul-3-Hneppxnlb 0.8 gm/dL (0.4-1.0) 03/14/16 06:00 Beta Globulins 1.0 gm/dL (0.7-1.3) 03/14/16 06:00 Gamma Globulins 1.1 gm/dL (0.4-1.8) 03/14/16 06:00 Vitamin B12 253 pg/ml (180-914) 03/09/16 06:30 TSH 0.13 uIU/ml (0.358-3.74) L 03/11/16 05:20 Urine Color [place] 03/08/16 21:10 Urine Appearance Clear 03/08/16 21:10 Urine pH 5.0 (5.0-8.0) 03/08/16 21:10 Ur Specific [place] 1.029 (1.001-1.035) 03/08/16 21:10 Urine Protein 1+ (NEGATIVE) H 03/08/16 21:10 Urine Glucose (UA) 1+ (NEGATIVE) H 03/08/16 21:10 Urine Ketones Negative (NEGATIVE) 03/08/16 21:10 Urine Blood Negative (NEGATIVE) 03/08/16 21:10 Urine Nitrite Negative (NEGATIVE) 03/08/16 21:10 Urine Bilirubin Negative (NEGATIVE) 03/08/16 21:10 Urine Urobilinogen 2.0 e.u/dl E.U./dl (0.2-1.0) H 03/08/16 21:10 Ur Leukocyte Esterase Negative (NEGATIVE) 03/08/16 21:10 Urine RBC 1 /hpf (0-3) 03/08/16 21:10 Urine WBC 2 /hpf (3-5) 03/08/16 21:10 Urine Mucus Few 03/08/16 21:10 U Random Total Protein 127 mg/dl (5-11.9) H 03/10/16 13:25 Urine Creatinine 162.0 mg/dL 03/10/16 13:25 Protein/Creatinin Ratio 0.78 MG/DL 03/10/16 13:25 NISH M-Harry Not observed g/dL (Not Observed) 03/14/16 06:00 ELIO Screen Negative (.) 03/12/16 05:00 Blood Type O NEGATIVE 03/14/16 13:45 Antibody Screen Negative 03/14/16 13:45 Crossmatch See Detail 03/14/16 13:45 tele: sr, sinus tachy, occ pvcs CTA: no PE. Increased interstitial markings and atelectasis at bases Echo 03/09/16/: mod-sev dec lvef, inf wall hk, nl rv, mild lae, mild mr/tr, moderate pericardial eff, ?impending tamponade based on ra wall collapse Repeat echo 03/12/16: mild con LVH. mod-sev depressed LV sys func (global), 1+ MR/TR, effusion unchanged, still with early diastolic RA collapse. a/p: 75 f (she is 83 according to family) with hx htn, h/o [place] x 2, dementia and possible recent diagnosis of cancer (unknown type), here with lethargy, weakness found to have systolic cardiomyopathy and pericardial effusion. pericardial effusion, possible acute pericarditis: -reviewed echo, there is a moderate circumferential pericardial eff present but no signs of tamponade. clinically no signs of tamponade as well. -CRP and ESR elevated but ? sec to malignancy; has no friction rub present and none previously documented on exam in prior notes; ecg with mild nonsp ST-Ts-- will cont indocin 50 TID and taper after 4-6 weeks course -hemodynamically stable throughout, with no clinical tamponade -s/p pericardial window 03/16 (diagnostic as well) with 500 cc non-bloody fluid removed and drain left in place today. -pericardial drain mgmt per CTS -f/u pericardial fluid cultures, cytology syst chf: -echo here shows mod-sev decreased lvef with inferior hypokinesis, patient with h/o prior [place]--followed by doctors in [place] where she lives, per dtr (here visiting) -no angina or other signs acs, ce's negx3, ecg w/o ischemic changes or significant q waves -03/12: clinically no definite chf, exam equiovocal for JVD--monitor closely with IVF. - 03/13: Now off IVF. CXR with new rt pleural effusion. No change in effusion size or hemodynamics with IVF. gentle diuresis as mentioned above. Strict I/O' s, daily weights. -03/14-: no signs chf on exam/cxr. cont to hold lasix and ivfs for now -will defer ? of need for ischemia eval to [place] doctors (dtr states pt plans to return as soon as medically stable)--? LV dysfxn is chronic and stable -low dose BB trial as doing -? KATHLEEN later if bp stable hypoxia: -does not appear to be due to chf -CTA with increased interstitial markings and by review a dilated PA. ? underlying pulmonary disease -pulm following PAT: -runs to 120s on telem, ? related to irritation s/p pericardial window -improved since started lopressor 25 bid, BPs tolerating -cont same meds lethargy/weakness: -head ct w/o acute findings. likely 2/2 to aforementioned acute illnesses. htn: -bp remains stable here, cont bb crit care time est'd 33min
[2016-03-19] MEDS ORDERED: FUROSEMIDE 40 MG/4 ML INJECTABLE VIAL IVPUSH ONE ×2 (16:46)
--- NOTE | 2016-03-19 16:56 | PN ---
Progress Note, Physician History of Present Illness: Pt seen and examined at bedside. Pericardial tubes were removed today. - Current Medication List Current Medications: Active Medications Acetaminophen (Tylenol -) 650 mg PO Q6H PRN PRN Reason: FEVER OR PAIN Last Admin: 03/17/16 05:10 Dose: 650 mg Albuterol/Ipratropium (Duoneb -) 1 amp NEB QIDR [facility] Last Admin: 03/19/16 11:28 Dose: 1 amp Bacitracin (Bacitracin -) 1 applic TP DAILY [facility] Last Admin: 03/19/16 10:30 Dose: 1 applic Colchicine (Colcrys -) 0.6 mg PO BID [facility] Last Admin: 03/19/16 10:31 Dose: 0.6 mg Diphenhydramine HCl (Benadryl Injection -) 25 mg IVPUSH Q6H-IV [facility] Last Admin: 03/19/16 15:22 Dose: 25 mg Docusate Sodium (Colace -) 100 mg PO TID PRN PRN Reason: CONSTIPATION Last Admin: 03/19/16 10:30 Dose: 100 mg Furosemide (Lasix Injection -) 20 mg IVPUSH ONCE ONE Stop: 03/19/16 16:47 Guaifenesin (Diabetic Tussin Dm -) 5 ml PO Q6H PRN PRN Reason: COUGH Last Admin: 03/18/16 16:46 Dose: 5 ml Heparin Sodium (Porcine) (Heparin -) 5,000 unit SQ BID [facility] Last Admin: 03/19/16 10:30 Dose: 5,000 unit Indomethacin (Indocin -) 50 mg PO TID [facility] Last Admin: 03/19/16 15:00 Dose: 50 mg Metoprolol Tartrate (Lopressor -) 25 mg PO BID [facility] Last Admin: 03/19/16 10:30 Dose: 25 mg Nystatin/Triamcinolone Acetonide (Mycolog Ii Cream -) 1 applic TP BID [facility] Last Admin: 03/19/16 10:30 Dose: 1 applic Pantoprazole Sodium (Protonix -) 40 mg PO DAILY [facility] Last Admin: 03/19/16 10:30 Dose: 40 mg Zinc Acetate/Diphenhydramine (Benadryl 2% Cream) 1 applic TP BID [facility] Last Admin: 03/19/16 10:31 Dose: 1 applic - Objective Vital Signs: Vital Signs Temperature 98.8 F 03/19/16 06:00 Pulse Rate 106 H 03/19/16 11:28 Respiratory Rate 21 03/19/16 06:00 Blood Pressure 126/77 03/19/16 06:00 O2 Sat by Pulse Oximetry (%) 95 03/19/16 11:28 Constitutional: Yes: Calm Eyes: Yes: Conjunctiva Clear Neck: Yes: Supple Cardiovascular: Yes: S1, S2 Respiratory: Yes: CTA Bilaterally Genitourinary: Yes: WNL Musculoskeletal: Yes: Muscle Weakness Edema: No Neurological: Yes: Oriented Psychiatric: Yes: Oriented Labs: CBC, BMP 03/19/16 05:05 03/19/16 05:05 INR, PTT INR 1.16 (0.82-1.09) H 03/15/16 05:20 Problem List - Problems (1) Hypoxia Code(s): R09.02 - HYPOXEMIA (2) Lethargy Code(s): R53.83 - OTHER FATIGUE (3) Pericardial effusion Code(s): I31.3 - PERICARDIAL EFFUSION (NONINFLAMMATORY) (4) Proteinuria Code(s): R80.9 - PROTEINURIA, UNSPECIFIED (5) Hypertension Code(s): I10 - ESSENTIAL (PRIMARY) HYPERTENSION (6) Skin cancer Code(s): C44.90 - UNSPECIFIED MALIGNANT NEOPLASM OF SKIN, UNSPECIFIED Assessment/Plan Current Medications Generic Name Dose Route Start Last Admin Trade Name Freq PRN Reason Stop Dose Admin Acetaminophen 650 mg 03/11/16 10:54 03/17/16 05:10 Tylenol - PO 650 mg Q6H PRN Administration FEVER OR PAIN Albuterol/Ipratropium 1 amp 03/15/16 14:00 03/19/16 11:28 Duoneb - NEB 1 amp QIDR JUAN Administration Bacitracin 1 applic 03/16/16 15:45 03/19/16 10:30 Bacitracin - TP 1 applic DAILY [facility] Administration Colchicine 0.6 mg 03/10/16 22:00 03/19/16 10:31 Colcrys - PO 0.6 mg BID [facility]UAN Administration Diphenhydramine HCl 25 mg 03/15/16 11:00 03/19/16 15:22 Benadryl Injection - IVPUSH 25 mg Q6H-IV [facility]UAN Administration Docusate Sodium 100 mg 03/16/16 13:09 03/19/16 10:30 Colace - PO 100 mg TID PRN Administration CONSTIPATION Guaifenesin 5 ml 03/18/16 08:32 03/18/16 16:46 Diabetic Tussin Dm - PO 5 ml Q6H PRN Administration COUGH Heparin Sodium (Porcine) 5,000 unit 03/16/16 10:00 03/19/16 10:30 Heparin - SQ 5,000 unit BID [facility] Administration Indomethacin 50 mg 03/10/16 14:30 03/19/16 15:00 Indocin - PO 50 mg TID JUAN Administration Metoprolol Tartrate 25 mg 03/17/16 10:00 03/19/16 10:30 Lopressor - PO 25 mg BID [facility]UAN Administration Nystatin/Triamcinolone Acetonide 1 applic 03/16/16 12:45 03/19/16 10:30 Mycolog Ii Cream - TP 1 applic BID [facility]UAN Administration Pantoprazole Sodium 40 mg 03/10/16 15:00 03/19/16 10:30 Protonix - PO 40 mg DAILY [facility] Administration Zinc Acetate/Diphenhydramine 1 applic 03/14/16 10:00 03/19/16 10:31 Benadryl 2% Cream TP 1 applic BID [facility] Administration Impression 1. pericardial effusion 2. hypoxia 3. proteinuria 4. HTN 5. skin cancer 6. congestion on cxr 7. s/p fall and laceration to head Plan - pericardial tubes removed today - monitor cardiac status - renal function is stable - will workup proteinuria as outpt, marian will help - discussed with family - will follow Dr Ruth
--- NOTE | 2016-03-19 16:57 | PN ---
Physical Exam: SUBJECTIVE: Patient seen and examined. Pericardial drain removed. Case discussed with daughter -- her eventual hope would be to get her mother back to [place] where she has 2 brothers OBJECTIVE: Vital Signs Period Temp Pulse Resp BP Sys/Sanford Pulse Ox Last 24 Hr 98.2 F-98.8 F 98-114 18-21 115-142/62-86 95-95 Physical Exam: General: NAD, on 3L NC, appears tachypneic, appears drowsy. Frail and chronically ill appearing. Less interactive today, occitan speaking HEENT: bilateral resolving periorbital eccyhmosis. Left mid forehead sutures intact with dried blood Lungs: Chest with sternal incision, C/D/I. Pericardial drained removed Heart: tachycardic, S1 S2 Abd: Soft, non-tender, non-distended. BS present Ext: RUE eccyhmosis. Laboratory Results - last 24 hr 03/19/16 03/19/16 05:05 05:05 WBC 13.4 H RBC 3.95 Hgb 12.1 Hct 37.9 MCV 95.9 MCHC 32.0 RDW 16.8 H Plt Count 207 MPV 10.5 Neutrophils % 85.8 H Lymphocytes % 4.2 L Monocytes % 9.2 Eosinophils % 0.7 Basophils % 0.1 Sodium 142 Potassium 4.8 Chloride 103 Carbon Dioxide 32 Anion Gap 7 L BUN 21 H Creatinine 0.6 Creat Clearance w eGFR > 60 Random Glucose 123 H Calcium 8.8 Phosphorus 3.0 Magnesium 2.0 Total Bilirubin 0.7 AST 11 L D ALT 13 D Alkaline Phosphatase 122 H Total Protein 6.2 L Albumin 2.6 L Active Medications Generic Name Dose Route Start Last Admin Trade Name Freq PRN Reason Stop Dose Admin Acetaminophen 650 mg 03/11/16 10:54 03/17/16 05:10 Tylenol - PO 650 mg Q6H PRN Administration FEVER OR PAIN Albuterol/Ipratropium 1 amp 03/15/16 14:00 03/19/16 11:28 Duoneb - NEB 1 amp QIDR JUAN Administration Bacitracin 1 applic 03/16/16 15:45 03/19/16 10:30 Bacitracin - TP 1 applic DAILY [facility] Administration Colchicine 0.6 mg 03/10/16 22:00 03/19/16 10:31 Colcrys - PO 0.6 mg BID JUAN Administration Diphenhydramine HCl 25 mg 03/15/16 11:00 03/19/16 15:22 Benadryl Injection - IVPUSH 25 mg Q6H-IV [facility]UAN Administration Docusate Sodium 100 mg 03/16/16 13:09 03/19/16 10:30 Colace - PO 100 mg TID PRN Administration CONSTIPATION Guaifenesin 5 ml 03/18/16 08:32 03/18/16 16:46 Diabetic Tussin Dm - PO 5 ml Q6H PRN Administration COUGH Heparin Sodium (Porcine) 5,000 unit 03/16/16 10:00 03/19/16 10:30 Heparin - SQ 5,000 unit BID [facility] Administration Indomethacin 50 mg 03/10/16 14:30 03/19/16 15:00 Indocin - PO 50 mg TID JUAN Administration Metoprolol Tartrate 25 mg 03/17/16 10:00 03/19/16 10:30 Lopressor - PO 25 mg BID [facility] Administration Nystatin/Triamcinolone Acetonide 1 applic 03/16/16 12:45 03/19/16 10:30 Mycolog Ii Cream - TP 1 applic BID [facility] Administration Pantoprazole Sodium 40 mg 03/10/16 15:00 03/19/16 10:30 Protonix - PO 40 mg DAILY [facility] Administration Zinc Acetate/Diphenhydramine 1 applic 03/14/16 10:00 03/19/16 10:31 Benadryl 2% Cream TP 1 applic BID [facility] Administration ASSESSMENT/PLAN: This is a 75-year-old female with a PMH Hypertension, MIx2, hx of multiple falls (most recent 03/05/16) who presented to the ED with decrease PO intake, lethargy, dizziness and was admitted for further evaluation and management of her emergent condition. Plan: 1) Cardiology: Moderate pericardial effusion s/p subxiphoid pericardial window -pericardial drained removed on 03/19 -cultures pending Chest pain, acute systolic HF - CTA chest negative for PE - Hx of CO x2 in the past -on b-oc, low dose KATHLEEN started, ordered for dose lasix 20mg IV X 1 tonight as pt appeared more tachypneic this evening -echo with moder to severe LVEF with inferior wall hypokinesis, cards following -mcconnell placed to closely monitor UOP 2) Pulm: Acute hypoxia -Stable and remains on O2 via NC prn - CTA with no evidence of PE -robitussin added for cough 3) Oncology: RLE skin lesion - Imaging from [facility] with lytic lesions throughout the calvarium and the cervical spine. 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 - Prior discussion with daughter by day hospitalist [employer], she has declined all malignancy workup for the patient stating she would like to get her back to [place] as soon as possible 4) MSK: S/p mechanical fall with facial injuries - No acute fractures per records from [facility] 5) Prophylaxis: - Heparin 5,000u sq bid 6) Dispo: - Requires ICU care CODE STATUS: FULL CODE Visit type - Emergency Visit Emergency Visit: Yes ED Registration Date: 03/09/16 Care time: The patient presented to the Emergency Department on the above date and was hospitalized for further evaluation of their emergent condition. - New Patient This patient is new to me today: No - Critical Care Critical Care patient: Yes Total Critical Care Time (in minutes): 35 Critical Care Statement: The care of this patient involved high complexity decision making to prevent further life threatening deterioration of the patient 's condition and/or to evalute & treat vital organ system(s) failure or risk of failure.
[2016-03-19] MEDS ORDERED: LISINOPRIL 5 MG TABLET (FP) PO SCH (17:00)
[2016-03-19] MEDS: guaiFENesin/D-M SUGAR-FREE/ACLHOL-FREE 118 ML BOTTLE PO PRN (19:49)
[2016-03-19] MEDS: ACETYLCYSTEINE 20% 200MG/ML 4 ML VIAL *FOR ORAL / INH USE ONLY NEB SCH (23:00)
[2016-03-19] MEDS: ALBUTEROL SO4 0.083% IH SOL 2.5 MG/3 ML VIAL.NEB. NEB SCH (23:00)
[2016-03-20] MEDS: ALBUTEROL SO4 2.5/IPRATROPIUM 0.5 INH SOL 3 ML VIAL.NEB. NEB SCH ×3 (00:06→12:30)
[2016-03-20] MEDS: INDOMETHACIN 50 MG CAPSULE PO SCH ×3 (05:49→22:27)
[2016-03-20 06:04] LABS: MCH 30.2 pg (25.7-33.7); MCHC 31.4 g/dl (32.0-36.0); MEAN CELL VOLUME 96.2 fl (80-96); PLATELET COUNT 207 K/MM3 (134-434); RDW 16.9 % (11.6-15.6); WHITE BLOOD COUNT 13.7 K/mm3 (4.0-10.0)
[2016-03-20 07:36] LABS: ANION GAP 10 (8-16); CALCIUM 8.8 mg/dL (8.5-10.1); CO2 31 mmol/L (21-32); CREATININE 0.9 mg/dL (0.55-1.02); GLUCOSE,RANDOM 160 mg/dL (74-106); MAGNESIUM 2.1 mg/dL (1.8-2.4)
[2016-03-20 08:44] LABS: TROPONIN I < 0.02 ng/ml (0.00-0.05)
--- NOTE | 2016-03-20 09:02 | PN ---
Progress Note (short form) - Note Progress Note: CC: pericardial effusion. s: no german; daughter here translating; pt feels general weakness and fatigue , also worsened cough since yesterday. no cp or sob or dizzy. Pericardial drain removed yesterday. Recieved lasix 20 mg IV x 1 yesterday. Also received first dose of lisinopril yesterday evening. o: Current Medications Acetaminophen (Tylenol -) 650 mg PO Q6H PRN PRN Reason: FEVER OR PAIN Last Admin: 03/17/16 05:10 Dose: 650 mg Acetylcysteine (Mucomyst 20 Oral / Inh Use Only*) 1,000 mg NEB BID [facility] Last Admin: 03/19/16 23:00 Dose: 1,000 mg Albuterol Sulfate (Ventolin 0.083% Nebulizer Soln -) 1 amp NEB BID [facility] Last Admin: 03/19/16 23:00 Dose: 1 amp Albuterol/Ipratropium (Duoneb -) 1 amp NEB QIDR [facility] Last Admin: 03/20/16 05:51 Dose: 1 amp Bacitracin (Bacitracin -) 1 applic TP DAILY [facility] Last Admin: 03/19/16 10:30 Dose: 1 applic Colchicine (Colcrys -) 0.6 mg PO BID [facility] Last Admin: 03/19/16 22:05 Dose: 0.6 mg Diphenhydramine HCl (Benadryl Injection -) 25 mg IVPUSH Q6H-IV [facility] Last Admin: 03/20/16 03:22 Dose: Not Given Docusate Sodium (Colace -) 100 mg PO TID PRN PRN Reason: CONSTIPATION Last Admin: 03/19/16 10:30 Dose: 100 mg Guaifenesin (Diabetic Tussin Dm -) 5 ml PO Q6H PRN PRN Reason: COUGH Last Admin: 03/19/16 19:49 Dose: 5 ml Heparin Sodium (Porcine) (Heparin -) 5,000 unit SQ BID [facility] Last Admin: 03/19/16 22:03 Dose: 5,000 unit Indomethacin (Indocin -) 50 mg PO TID [facility] Last Admin: 03/20/16 05:49 Dose: 50 mg Lisinopril (Prinivil) 2.5 mg PO DAILY [facility] Last Admin: 03/19/16 19:48 Dose: 2.5 mg Metoprolol Tartrate (Lopressor -) 25 mg PO BID [facility] Last Admin: 03/19/16 22:04 Dose: 25 mg Nystatin/Triamcinolone Acetonide (Mycolog Ii Cream -) 1 applic TP BID [facility] Last Admin: 03/19/16 22:54 Dose: 1 applic Pantoprazole Sodium (Protonix -) 40 mg PO DAILY [facility] Last Admin: 03/19/16 10:30 Dose: 40 mg Zinc Acetate/Diphenhydramine (Benadryl 2% Cream) 1 applic TP BID [facility] Last Admin: 03/19/16 22:05 Dose: 1 applic lasix 20 mg IV x 1 03/19 Vital Signs Period Temp Pulse Resp BP Sys/Sanford Pulse Ox Last 24 Hr 97.9 F-98.4 F 96-111 19-22 96-133/53-113 95-95 Intake & Output 03/18/16 03/19/16 03/20/16 03/21/16 07:59 07:59 07:59 07:59 Intake Total 1150 1080 100 Output Total 593 082 3600 Balance 1010 740 -2000 Weight 117 lb 119 lb 9.6 oz 119 lb Constitutional: Yes: No Distress, Calm Eyes: No: Sclera Icterus Cardiovascular: Yes: Regular Rate and Rhythm, JVD elevated. nl S1, S2,. No: Gallop, Murmur, Rub Respiratory: Yes: bibasilar dullness No: Accessory Muscle Use, Rales, Wheezes Gastrointestinal: Yes: Normal Bowel Sounds, Soft. No: Tenderness Extremities: No: Cold Edema: No Integumentary: No: Jaundice diaphoresis Neurological: Yes: Alert. No: Seizure Psychiatric: No: Agitated CBC, BMP 03/20/16 05:00 03/20/16 05:00 Laboratory Tests 03/19/16 03/20/16 05:05 05:00 Magnesium 2.1 Troponin I < 0.02 Albumin 2.6 L tele: sr, sinus tachy, occ pvcs. A few seconds of coarse afib vs. flutter/ tach. CTA: no PE. Increased interstitial markings and atelectasis at bases Echo 03/09/16/: mod-sev dec lvef, inf wall hk, nl rv, mild lae, mild mr/tr, moderate pericardial eff, ?impending tamponade based on ra wall collapse Repeat echo 03/12/16: mild con LVH. mod-sev depressed LV sys func (global), 1+ MR/TR, effusion unchanged, still with early diastolic RA collapse. a/p: 75 f (she is 83 according to family) with hx htn, h/o NC x 2, dementia and possible recent diagnosis of cancer (unknown type), here with lethargy, weakness found to have systolic cardiomyopathy and pericardial effusion. pericardial effusion, possible acute pericarditis: -reviewed echo, there is a moderate circumferential pericardial eff present but no signs of tamponade. clinically no signs of tamponade as well. -CRP and ESR elevated but ? sec to malignancy; has no friction rub present and none previously documented on exam in prior notes; ecg with mild nonsp ST-Ts-- will cont indocin 50 TID and taper after 4-6 weeks course -hemodynamically stable throughout, with no clinical tamponade -s/p pericardial window 03/16 (diagnostic as well) with 500 cc non-bloody fluid removed and drain left in place. pericardial fluid cultures, cytology still pending. -03/19 pericardial drain removed. -03/20: worsened cough, malaise. JVD elevated. May need f/u echo to eval for reaccumulation of effusion. Will first evaluate with repeat chest ct as mentioned below. syst chf: -echo here shows mod-sev decreased lvef with inferior hypokinesis, patient with h/o prior NC--followed by doctors in [place] where she lives, per dtr (here visiting) -no angina or other signs acs, ce's negx3, ecg w/o ischemic changes or significant q waves -03/12: clinically no definite chf, exam equiovocal for JVD--monitor closely with IVF. - 03/13: Now off IVF. CXR with new rt pleural effusion. No change in effusion size or hemodynamics with IVF. gentle diuresis as mentioned above. Strict I/O' s, daily weights. -03/14-: no signs chf on exam/cxr. cont to hold lasix and ivfs for now -will defer ? of need for ischemia eval to [place] doctors (dtr states pt plans to return as soon as medically stable)--? LV dysfxn is chronic and stable -low dose BB trial as doing. ACEI trial (2.5 mg) given 03/19. -03/20: Bp trending down s/p lasix and lisinopril yesterday evening. will hold dose this morning. Consider resuming again tomorrow if bp remains stable. WBC rising and cough worsening. Would repeat chest CT. hypoxia: -does not appear to be due to chf -CTA with increased interstitial markings and by review a dilated PA. ? underlying pulmonary disease -pulm following PAT: -runs to 120s on telem, ? related to irritation s/p pericardial window -improved since started lopressor 25 bid, BPs tolerating -cont same meds lethargy/weakness: -head ct w/o acute findings. likely 2/2 to aforementioned acute illnesses. htn: -bp remains stable here, cont bb. 03/20 slightly lower s/p diuresis ang trial of lisinopril 2.5 mg last night. will hold KATHLEEN for now. Con't to monitor. crit care time est'd 35min
[2016-03-20] MEDS: BACITRACIN 30 GM TUBE TOPICAL OINTMENT TP SCH (09:44)
[2016-03-20] MEDS: PANTOPRAZOLE 40 MG TABLET (FP) PO SCH (09:46)
[2016-03-20] MEDS: HEPARIN NA (PORCINE) 5,000 UNITS/ML 1ML VIAL SQ SCH ×2 (09:47→22:25)
[2016-03-20] MEDS: guaiFENesin/D-M SUGAR-FREE/ACLHOL-FREE 118 ML BOTTLE PO PRN ×2 (09:49→22:38)
[2016-03-20] MEDS: COLCHICINE 0.6 MG TABLET (FP) PO SCH ×2 (09:52→22:28)
[2016-03-20] MEDS: METOPROLOL TARTRATE 25 MG TABLET (FP) PO SCH ×2 (09:58→22:26)
[2016-03-20] MEDS: ALBUTEROL SO4 0.083% IH SOL 2.5 MG/3 ML VIAL.NEB. NEB SCH ×2 (10:35→23:00)
[2016-03-20] MEDS: ACETYLCYSTEINE 20% 200MG/ML 4 ML VIAL *FOR ORAL / INH USE ONLY NEB SCH ×2 (10:35→23:00)
[2016-03-20] MEDS: NYSTATIN/TRIAMCINOLONE TOPICAL CREAM 15 GM TUBE TP SCH ×2 (11:21→22:40)
--- NOTE | 2016-03-20 11:56 | EKG ---
Test Reason : Blood Pressure : / mmHG Vent. Rate : 106 BPM Atrial Rate : 136 BPM P-R Int : 148 ms QRS Dur : 096 ms QT Int : 338 ms P-R-T Axes : 029 019 -29 degrees QTc Int : 448 ms SINUS TACHYCARDIA WITH PREMATURE VENTRICULAR COMPLEXES INFERIOR INFARCT , AGE UNDETERMINED ABNORMAL ECG WHEN COMPARED WITH ECG OF 08-MAR-2016 20:51, INFERIOR INFARCT IS NOW PRESENT VENTRICULAR ECTOPIES ARE SEEN Confirmed by RAYSA DENIS, SAURABH ([id number]) on 03/20/2016 11:55:39 AM Referred By: Overread By: SAURABH TABARES MD
--- NOTE | 2016-03-20 12:21 | PN ---
Progress Note, Physician History of Present Illness: Pt seen and examined at bedside. She appears fatigued today. - Current Medication List Current Medications: Active Medications Acetaminophen (Tylenol -) 650 mg PO Q6H PRN PRN Reason: FEVER OR PAIN Last Admin: 03/17/16 05:10 Dose: 650 mg Acetylcysteine (Mucomyst 20 Oral / Inh Use Only*) 1,000 mg NEB BID [facility] Last Admin: 03/19/16 23:00 Dose: 1,000 mg Albuterol Sulfate (Ventolin 0.083% Nebulizer Soln -) 1 amp NEB BID [facility] Last Admin: 03/19/16 23:00 Dose: 1 amp Albuterol/Ipratropium (Duoneb -) 1 amp NEB QIDR [facility] Last Admin: 03/20/16 05:51 Dose: 1 amp Bacitracin (Bacitracin -) 1 applic TP DAILY [facility] Last Admin: 03/20/16 09:44 Dose: 1 applic Colchicine (Colcrys -) 0.6 mg PO BID [facility] Last Admin: 03/20/16 09:52 Dose: 0.6 mg Diphenhydramine HCl (Benadryl Injection -) 25 mg IVPUSH Q6H-IV [facility] Last Admin: 03/20/16 10:00 Dose: Not Given Docusate Sodium (Colace -) 100 mg PO TID PRN PRN Reason: CONSTIPATION Last Admin: 03/19/16 10:30 Dose: 100 mg Guaifenesin (Diabetic Tussin Dm -) 5 ml PO Q6H PRN PRN Reason: COUGH Last Admin: 03/20/16 09:49 Dose: 5 ml Heparin Sodium (Porcine) (Heparin -) 5,000 unit SQ BID [facility] Last Admin: 03/20/16 09:47 Dose: 5,000 unit Indomethacin (Indocin -) 50 mg PO TID [facility] Last Admin: 03/20/16 05:49 Dose: 50 mg Metoprolol Tartrate (Lopressor -) 25 mg PO BID [facility] Last Admin: 03/20/16 09:58 Dose: Not Given Nystatin/Triamcinolone Acetonide (Mycolog Ii Cream -) 1 applic TP BID [facility] Last Admin: 03/20/16 11:21 Dose: 1 applic Pantoprazole Sodium (Protonix -) 40 mg PO DAILY [facility] Last Admin: 03/20/16 09:46 Dose: 40 mg Zinc Acetate/Diphenhydramine (Benadryl 2% Cream) 1 applic TP BID [facility] Last Admin: 03/20/16 11:22 Dose: 1 applic - Objective Vital Signs: Vital Signs Temperature 98.2 F 03/20/16 06:00 Pulse Rate 111 H 03/20/16 10:00 Respiratory Rate 23 03/20/16 10:00 Blood Pressure 101/55 03/20/16 10:00 O2 Sat by Pulse Oximetry (%) 94 L 03/20/16 09:30 Constitutional: Yes: Calm Eyes: Yes: Conjunctiva Clear Cardiovascular: Yes: S1, S2 Respiratory: Yes: On Nasal O2 Gastrointestinal: Yes: Soft Genitourinary: Yes: Allison Present Musculoskeletal: Yes: Muscle Weakness Edema: No Neurological: Yes: Oriented Psychiatric: Yes: Oriented Labs: CBC, BMP 03/20/16 05:00 03/20/16 05:00 INR, PTT INR 1.16 (0.82-1.09) H 03/15/16 05:20 Problem List - Problems (1) Hypoxia Code(s): R09.02 - HYPOXEMIA (2) Lethargy Code(s): R53.83 - OTHER FATIGUE (3) Pericardial effusion Code(s): I31.3 - PERICARDIAL EFFUSION (NONINFLAMMATORY) (4) Proteinuria Code(s): R80.9 - PROTEINURIA, UNSPECIFIED (5) Hypertension Code(s): I10 - ESSENTIAL (PRIMARY) HYPERTENSION (6) Skin cancer Code(s): C44.90 - UNSPECIFIED MALIGNANT NEOPLASM OF SKIN, UNSPECIFIED Assessment/Plan Current Medications Generic Name Dose Route Start Last Admin Trade Name Ruyq PRN Reason Stop Dose Admin Acetaminophen 650 mg 03/11/16 10:54 03/17/16 05:10 Tylenol - PO 650 mg Q6H PRN Administration FEVER OR PAIN Acetylcysteine 1,000 mg 03/19/16 22:45 03/19/16 23:00 Mucomyst 20 Oral / Inh Use Only* NEB 1,000 mg BID [facility]UAN Administration Albuterol Sulfate 1 amp 03/19/16 23:15 03/19/16 23:00 Ventolin 0.083% Nebulizer Soln - NEB 1 amp BID [facility]UAN Administration Albuterol/Ipratropium 1 amp 03/15/16 14:00 03/20/16 05:51 Duoneb - NEB 1 amp QIDR JUAN Administration Bacitracin 1 applic 03/16/16 15:45 03/20/16 09:44 Bacitracin - TP 1 applic DAILY [facility]UAN Administration Colchicine 0.6 mg 03/10/16 22:00 03/20/16 09:52 Colcrys - PO 0.6 mg BID JUAN Administration Diphenhydramine HCl 25 mg 03/15/16 11:00 03/20/16 10:00 Benadryl Injection - IVPUSH Not Given Q6H-IV [facility]UAN Docusate Sodium 100 mg 03/16/16 13:09 03/19/16 10:30 Colace - PO 100 mg TID PRN Administration CONSTIPATION Guaifenesin 5 ml 03/18/16 08:32 03/20/16 09:49 Diabetic Tussin Dm - PO 5 ml Q6H PRN Administration COUGH Heparin Sodium (Porcine) 5,000 unit 03/16/16 10:00 03/20/16 09:47 Heparin - SQ 5,000 unit BID [facility]UAN Administration Indomethacin 50 mg 03/10/16 14:30 03/20/16 05:49 Indocin - PO 50 mg TID JUAN Administration Metoprolol Tartrate 25 mg 03/17/16 10:00 03/20/16 09:58 Lopressor - PO Not Given BID [facility]UAN Nystatin/Triamcinolone Acetonide 1 applic 03/16/16 12:45 03/20/16 11:21 Mycolog Ii Cream - TP 1 applic BID JUAN Administration Pantoprazole Sodium 40 mg 03/10/16 15:00 03/20/16 09:46 Protonix - PO 40 mg DAILY [facility] Administration Zinc Acetate/Diphenhydramine 1 applic 03/14/16 10:00 03/20/16 11:22 Benadryl 2% Cream TP 1 applic BID [facility]UAN Administration Impression 1. pericardial effusion 2. hypoxia 3. proteinuria 4. HTN 5. skin cancer 6. congestion on cxr 7. s/p fall and laceration to head 8. hyperkalemia Plan - d/c marian - repeat labs in am - discussed with cardio, will keep on indomethacin for a few more days - monitor cardiac status - will workup proteinuria as outpt, will hold off marian secondary to hyperkalemia - discussed with family - low potassium diet - will follow Dr Ruth
--- NOTE | 2016-03-20 12:40 | PN ---
Teaching Attending Note Name of Resident: Dajuan Gerber ATTENDING PHYSICIAN STATEMENT I saw and evaluated the patient. I reviewed the resident's note and discussed the case with the resident. I agree with the resident's findings and plan as documented. SUBJECTIVE: Patient seen and examined in the ICU. Awake and alert. Still with some dry cough. Pericardial drain removed yesterday. CXR: No gross change in bilateral increased vascular markings OBJECTIVE: Intake & Output 03/17/16 03/18/16 03/19/16 03/20/16 23:59 23:59 23:59 23:59 Intake Total 1600 1030 100 100 Output Total 030 283 8554 200 Balance 1475 695 -1820 -100 Weight 115 lb 117 lb 119 lb 9.6 oz 119 lb Last Vital Signs Temp Pulse Resp BP Pulse Ox 98.2 F 111 H 23 101/55 94 L 03/20/16 06:00 03/20/16 10:00 03/20/16 10:00 03/20/16 10:00 03/20/16 09:30 Active Medications Acetaminophen (Tylenol -) 650 mg PO Q6H PRN PRN Reason: FEVER OR PAIN Last Admin: 03/17/16 05:10 Dose: 650 mg Acetylcysteine (Mucomyst 20 Oral / Inh Use Only*) 1,000 mg NEB BID JUAN Last Admin: 03/20/16 10:35 Dose: 1,000 mg Albuterol Sulfate (Ventolin 0.083% Nebulizer Soln -) 1 amp NEB BID JUAN Last Admin: 03/20/16 10:35 Dose: 1 amp Albuterol/Ipratropium (Duoneb -) 1 amp NEB QIDR JUAN Last Admin: 03/20/16 12:30 Dose: Not Given Bacitracin (Bacitracin -) 1 applic TP DAILY JUAN Last Admin: 03/20/16 09:44 Dose: 1 applic Colchicine (Colcrys -) 0.6 mg PO BID JUAN Last Admin: 03/20/16 09:52 Dose: 0.6 mg Diphenhydramine HCl (Benadryl Injection -) 25 mg IVPUSH Q6H-IV JUAN Last Admin: 03/20/16 10:00 Dose: Not Given Docusate Sodium (Colace -) 100 mg PO TID PRN PRN Reason: CONSTIPATION Last Admin: 03/19/16 10:30 Dose: 100 mg Guaifenesin (Diabetic Tussin Dm -) 5 ml PO Q6H PRN PRN Reason: COUGH Last Admin: 03/20/16 09:49 Dose: 5 ml Heparin Sodium (Porcine) (Heparin -) 5,000 unit SQ BID [facility] Last Admin: 03/20/16 09:47 Dose: 5,000 unit Indomethacin (Indocin -) 50 mg PO TID [facility] Last Admin: 03/20/16 05:49 Dose: 50 mg Metoprolol Tartrate (Lopressor -) 12.5 mg PO BID [facility] Nystatin/Triamcinolone Acetonide (Mycolog Ii Cream -) 1 applic TP BID [facility] Last Admin: 03/20/16 11:21 Dose: 1 applic Pantoprazole Sodium (Protonix -) 40 mg PO DAILY [facility] Last Admin: 03/20/16 09:46 Dose: 40 mg Zinc Acetate/Diphenhydramine (Benadryl 2% Cream) 1 applic TP BID [facility] Last Admin: 03/20/16 11:22 Dose: 1 applic Constitutional: Yes: Awake and alert Eyes: Yes: Resolving bilateral contusion of eyes Neck: Yes: Trachea Midline Cardiovascular: Yes: Regular Rate and Rhythm Respiratory: Yes: Scattered rhonchi Gastrointestinal: Yes: WNL, Normal Bowel Sounds, Soft Extremities: Yes: WNL Edema: No Integumentary: Yes: ecchymosis Neurological: Yes: Non-focal ...Motor Strength: WNL Labs: Laboratory Results - last 24 hr 03/20/16 03/20/16 03/20/16 05:00 05:00 05:00 WBC 13.7 H RBC 3.64 Hgb 11.0 Hct 35.0 MCV 96.2 H MCHC 31.4 L RDW 16.9 H Plt Count 207 MPV 11.0 Sodium 139 Potassium 5.2 H Chloride 98 Carbon Dioxide 31 Anion Gap 10 BUN 27 H D Creatinine 0.9 D Random Glucose 160 H D Calcium 8.8 Phosphorus 3.0 Magnesium 2.1 Creatine Kinase 10 L Cancelled Troponin I < 0.02 Cancelled Assessment/Plan Pericardial effusion: -> (?) Viral Pericarditis Suspected Viral Syndrome CHF by history HTN S/P Mechanical Fall Skin lesion Colchicine BID Indocin TID PO as tolerated O2 as needed Strict I&O Daily assessment for diuretics (none today) Telemetry monitoring Dr Ospina CCTime 35"
--- NOTE | 2016-03-20 12:59 | PN ---
Progress Note, Physician History of Present Illness: no issues overnight rash improved pericardial drains removed yesterday +cough non productive - Current Medication List Current Medications: Active Medications Acetaminophen (Tylenol -) 650 mg PO Q6H PRN PRN Reason: FEVER OR PAIN Last Admin: 03/17/16 05:10 Dose: 650 mg Acetylcysteine (Mucomyst 20 Oral / Inh Use Only*) 1,000 mg NEB BID [facility] Last Admin: 03/20/16 10:35 Dose: 1,000 mg Albuterol Sulfate (Ventolin 0.083% Nebulizer Soln -) 1 amp NEB BID [facility] Last Admin: 03/20/16 10:35 Dose: 1 amp Albuterol/Ipratropium (Duoneb -) 1 amp NEB QIDR [facility] Last Admin: 03/20/16 12:30 Dose: Not Given Bacitracin (Bacitracin -) 1 applic TP DAILY [facility] Last Admin: 03/20/16 09:44 Dose: 1 applic Colchicine (Colcrys -) 0.6 mg PO BID [facility] Last Admin: 03/20/16 09:52 Dose: 0.6 mg Diphenhydramine HCl (Benadryl Injection -) 25 mg IVPUSH Q6H-IV JUAN Last Admin: 03/20/16 10:00 Dose: Not Given Docusate Sodium (Colace -) 100 mg PO TID PRN PRN Reason: CONSTIPATION Last Admin: 03/19/16 10:30 Dose: 100 mg Guaifenesin (Diabetic Tussin Dm -) 5 ml PO Q6H PRN PRN Reason: COUGH Last Admin: 03/20/16 09:49 Dose: 5 ml Heparin Sodium (Porcine) (Heparin -) 5,000 unit SQ BID [facility] Last Admin: 03/20/16 09:47 Dose: 5,000 unit Indomethacin (Indocin -) 50 mg PO TID [facility] Last Admin: 03/20/16 05:49 Dose: 50 mg Metoprolol Tartrate (Lopressor -) 12.5 mg PO BID [facility] Nystatin/Triamcinolone Acetonide (Mycolog Ii Cream -) 1 applic TP BID [facility] Last Admin: 03/20/16 11:21 Dose: 1 applic Pantoprazole Sodium (Protonix -) 40 mg PO DAILY [facility] Last Admin: 03/20/16 09:46 Dose: 40 mg Zinc Acetate/Diphenhydramine (Benadryl 2% Cream) 1 applic TP BID JUAN Last Admin: 03/20/16 11:22 Dose: 1 applic - Objective Vital Signs: Vital Signs Temperature 98.2 F 03/20/16 06:00 Pulse Rate 111 H 03/20/16 10:00 Respiratory Rate 23 03/20/16 10:00 Blood Pressure 101/55 03/20/16 10:00 O2 Sat by Pulse Oximetry (%) 94 L 03/20/16 09:30 Constitutional: Yes: Well Nourished, No Distress, Calm, Thin Eyes: Yes: Other (bilateral contusion of eyes resolving) Neck: Yes: Trachea Midline Cardiovascular: Yes: Tachycardic Respiratory: Yes: +congestion + rhonchi Incision C/D/I Gastrointestinal: Yes: WNL, Normal Bowel Sounds, Soft Extremities: Yes: WNL Edema: No Integumentary: Yes: Other (large cauliflower fleshy/red like growth of right singh) Neurological: Yes: Alert, Oriented, Cranial Nerves II-XII Intact ...Motor Strength: WNL Labs: CBC, BMP 03/20/16 05:00 03/20/16 05:00 INR, PTT INR 1.16 (0.82-1.09) H 03/15/16 05:20 Assessment/Plan 75F with HTN admitted with nausea vomiting weakness and anorexia found to have a pericardial effusion on echo and CT scan transferred to ICU for further monitoring. Spoke to granddaughter who would like to be aggressive about her treatment. They would now like a pericardial window. they wants a work up for malignancy and they would like skin and bone biopsies Pericardial effusion:hemodynamically stable: possible effusion could be from recent viral infection no clinical evidence of pericardial tamponade s/p pericardial window 380ml fluid Drained clear fluid BP stable No JVD no muffled heart sounds CTA chest negative for PE CT surgery consult appreciated Nephrology consult appreciated hold norvasc per cardiology fluid bolus PRN hypotension [facility] contacted for imaging studies show lytic lesion on head CT and spinal XR no beta blockers continue indomethacin continue colchicine repeat echo is unchanged Diueresis significantly improved respiratory status of patient systolic CHF: newly diagnosed on echo mod-severe decreased LEVF, inferior wall hypokinesis, normal right ventricular function, mild eft atrial enlargement, mild mitral regurg/tricuspid regurg, moderate pericardial effusion, possible impending tamponade based on right atrial wall collapse Cardiology consult appreciated Post op from pericardial window 380ml drained SPEP/UPEP-SPEP negative Needs aggressive chest PT and pulmonary toilet cotninue beta oc Hypoxia: improved Patient saturating well in ICU on nasal cannula CTA chest negative for PE CXR congestion-unchanged Assess daily need for dieresis- today will not give lasix stop IVF Rash: contact dermatitis benadryl IV Q6h PRN Mycalog 2% cream derm consult HTN: Controlled for now hold norvasc per cardiology for now continue beta oc hold marian I per nephrology mechanical fall: no issues at this time repeat head CT stable Skin lesion likely malignancy: likely some kind of benign or malignant growth possible patient has other malignancy Granddaughter would not like it biopsied will do bone scan SPEP/UPEP Proteinuria: Nephrology consult appreciated FEN: Stop IVF hyperkalemia will monitor sodium controlled diet PPx: HSQ SCD protonix PT consult Patient seen and case discussed with Dr. quinn
--- NOTE | 2016-03-20 13:14 | PATH ---
Surgical Pathology Report Patient Name: DANETTE NUÑEZ Med. Rec. #: [id number] /Age/Gender: 1940 (Age: 75) / F Account: [id number] Location: ICU RELIGIOUS [facility]ALER Taken: 03/15/2016 Received: 03/16/2016 Reported: 03/20/2016 Physicians: Ernesto Gardner ACNP Specimen(s) Received PERICARDIAL TISSUE Clinical History Pericardial effusion Final Diagnosis PERICARDIAL TISSUE: BENIGN FIBROFATTY TISSUE WITH FOCAL VASCULAR CONGESTION. FRAGMENTS OF UNREMARKABLE SKELETAL MUSCLE. NO MALIGNANCY IDENTIFIED. Comment: Refer to [id number] for the pericardial fluid cytology results. Electronically Signed Dez Rider M.D. Gross Description Received in formalin, labeled "pericardial tissue" is a 2.0 x 1.8 x 0.7 cm pink-mac, irregular portion of soft tissue. The specimen is serially sectioned and entirely submitted in one cassette. 03/16/2016 [facility]03/16/2016
--- NOTE | 2016-03-20 14:02 | PN ---
Physical Exam: SUBJECTIVE: Patient seen and examined. KATHLEEN started yesterday - now discontinued due to elevated K OBJECTIVE: Vital Signs Period Temp Pulse Resp BP Sys/[place] Pulse Ox Last 24 Hr 98 F-98.4 F 96-111 20-23 96-133/53-90 94-95 Physical Exam: General: NAD, on 3L NC, less tachypneic today, Citizen Of [place] speaking HEENT: bilateral resolving periorbital eccyhmosis. Left mid forehead sutures intact with dried blood Lungs: Chest with sternal incision, C/D/I. Bilateral crackles Heart: tachycardic, S1 S2 Abd: Soft, non-tender, non-distended. BS present Ext: RUE eccyhmosis. RLE skin lesion Laboratory Results - last 24 hr 03/20/16 03/20/16 03/20/16 05:00 05:00 05:00 WBC 13.7 H RBC 3.64 Hgb 11.0 Hct 35.0 MCV 96.2 H MCHC 31.4 L RDW 16.9 H Plt Count 207 MPV 11.0 Sodium 139 Potassium 5.2 H Chloride 98 Carbon Dioxide 31 Anion Gap 10 BUN 27 H D Creatinine 0.9 D Random Glucose 160 H D Calcium 8.8 Phosphorus 3.0 Magnesium 2.1 Creatine Kinase 10 L Cancelled Troponin I < 0.02 Cancelled Active Medications Generic Name Dose Route Start Last Admin Trade Name Freq PRN Reason Stop Dose Admin Acetaminophen 650 mg 03/11/16 10:54 03/17/16 05:10 Tylenol - PO 650 mg Q6H PRN Administration FEVER OR PAIN Acetylcysteine 1,000 mg 03/19/16 22:45 03/20/16 10:35 Mucomyst 20 Oral / Inh Use Only* NEB 1,000 mg BID JUAN Administration Albuterol Sulfate 1 amp 03/19/16 23:15 03/20/16 10:35 Ventolin 0.083% Nebulizer Soln - NEB 1 amp BID JUAN Administration Albuterol/Ipratropium 1 amp 03/15/16 14:00 03/20/16 12:30 Duoneb - NEB Not Given QIDR JUAN Bacitracin 1 applic 03/16/16 15:45 03/20/16 09:44 Bacitracin - TP 1 applic DAILY JUAN Administration Colchicine 0.6 mg 03/10/16 22:00 03/20/16 09:52 Colcrys - PO 0.6 mg BID JUAN Administration Diphenhydramine HCl 25 mg 03/15/16 11:00 03/20/16 10:00 Benadryl Injection - IVPUSH Not Given Q6H-IV JUAN Docusate Sodium 100 mg 03/16/16 13:09 03/19/16 10:30 Colace - PO 100 mg TID PRN Administration CONSTIPATION Guaifenesin 5 ml 03/18/16 08:32 03/20/16 09:49 Diabetic Tussin Dm - PO 5 ml Q6H PRN Administration COUGH Heparin Sodium (Porcine) 5,000 unit 03/16/16 10:00 03/20/16 09:47 Heparin - SQ 5,000 unit BID JUAN Administration Indomethacin 50 mg 03/10/16 14:30 03/20/16 05:49 Indocin - PO 50 mg TID JUAN Administration Metoprolol Tartrate 12.5 mg 03/20/16 22:00 Lopressor - PO BID JUAN Nystatin/Triamcinolone Acetonide 1 applic 03/16/16 12:45 03/20/16 11:21 Mycolog Ii Cream - TP 1 applic BID JUAN Administration Pantoprazole Sodium 40 mg 03/10/16 15:00 03/20/16 09:46 Protonix - PO 40 mg DAILY JUAN Administration Zinc Acetate/Diphenhydramine 1 applic 03/14/16 10:00 03/20/16 11:22 Benadryl 2% Cream TP 1 applic BID JUAN Administration ASSESSMENT/PLAN: This is a 75-year-old female with a PMH Hypertension, MIx2, hx of multiple falls (most recent 03/05/16) who presented to the ED with decrease PO intake, lethargy, dizziness and was admitted for further evaluation and management of her emergent condition. Plan: # Cardiology: Moderate pericardial effusion s/p subxiphoid pericardial window -pericardial drained removed on 03/19 -AFB and fungal cultures pending, gram stain negative. Suspect viral etiology? #Chest pain, acute systolic HF - CTA chest negative for PE - Hx of [place] x2 in the past -on b-oc, low dose KATHLEEN started 1227--NOW DISCONTINUED DUE TO K =5.2 -echo with moder to severe LVEF with inferior wall hypokinesis, cards following -mcconnell to be discontinued today #Hyperkalemia -has recently started KATHLEEN, now holding -low K diet -nephro following #Pulm: Acute hypoxia -Stable and remains on O2 via NC prn (stable 3-4 L) - CTA with no evidence of PE -robitussin for cough, improved with lasix. Will need to dose PRN #Oncology: RLE skin lesion - Imaging from [place] with lytic lesions throughout the calvarium and the cervical spine. 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 -Per daughter, does not want further intervention #MSK: S/p mechanical fall with facial injuries - No acute fractures per records from [facility] #Prophylaxis: - Heparin 5,000u sq bid, activity as tolerated #Dispo: - May stepdown if clinically remains stable today CODE STATUS: FULL CODE Visit type - Emergency Visit Emergency Visit: Yes ED Registration Date: 03/09/16 Care time: The patient presented to the Emergency Department on the above date and was hospitalized for further evaluation of their emergent condition. - New Patient This patient is new to me today: No - Critical Care Critical Care patient: Yes Total Critical Care Time (in minutes): 25
[2016-03-20] MEDS ORDERED: ALBUTEROL SO4 2.5/IPRATROPIUM 0.5 INH SOL 3 ML VIAL.NEB. NEB PRN (15:15)
[2016-03-21] MEDS: INDOMETHACIN 50 MG CAPSULE PO SCH ×4 (06:31→22:07)
[2016-03-21 07:12] LABS: MCH 30.6 pg (25.7-33.7); MCHC 32.1 g/dl (32.0-36.0); MEAN CELL VOLUME 95.2 fl (80-96); MEAN PLT VOLUME 11.2 fl (7.5-11.1); PLATELET COUNT 207 K/MM3 (134-434); RDW 16.9 % (11.6-15.6); WHITE BLOOD COUNT 11.2 K/mm3 (4.0-10.0)
[2016-03-21 07:32] LABS: ARTERIAL BLD GAS O2 SATURATION 95.4 % (90-98.9); ARTERIAL BLOOD GAS PO2 76.8 mmHg (70-100)
[2016-03-21 07:33] LABS: ALLENS TEST POSITIVE; ART PUNCT SITE LEFT BRACHIAL; LPM/O2% 4 LPM; PT. ON O2? YES; TYPE OF O2 N/C
[2016-03-21 07:57] LABS: ALBUMIN 2.2 g/dl (3.4-5.0); ALK PHOS 130 U/L (45-117); ANION GAP 8 (8-16); BILIRUBIN,TOTAL 0.6 mg/dL (0.2-1.0); CALCIUM 8.9 mg/dL (8.5-10.1); CO2 30 mmol/L (21-32); CREATININE 0.9 mg/dL (0.55-1.02); GLUCOSE,RANDOM 121 mg/dL (74-106); MAGNESIUM 2.2 mg/dL (1.8-2.4); PHOSPHOROUS 3.1 mg/dL (2.5-4.9); SGOT/AST 11 U/L (15-37); SGPT/ALT 14 U/L (12-78)
[2016-03-21] MEDS: BACITRACIN 30 GM TUBE TOPICAL OINTMENT TP SCH (09:39)
[2016-03-21] MEDS: NYSTATIN/TRIAMCINOLONE TOPICAL CREAM 15 GM TUBE TP SCH ×2 (09:40→21:30)
[2016-03-21] MEDS: HEPARIN NA (PORCINE) 5,000 UNITS/ML 1ML VIAL SQ SCH (09:40)
[2016-03-21] MEDS: DOCUSATE SODIUM 100 MG CAPSULE (FP) PO PRN (09:42)
[2016-03-21] MEDS: METOPROLOL TARTRATE 25 MG TABLET (FP) PO SCH ×2 (09:43→21:29)
[2016-03-21] MEDS: PANTOPRAZOLE 40 MG TABLET (FP) PO SCH (09:44)
[2016-03-21] MEDS ORDERED: SODIUM POLYSTYRENE SULFONATE 15 GM/60 ML BOTTLE ONE (10:24)
[2016-03-21] MEDS ORDERED: PT OWN MED DRAWER 7, Y5N ONE ×2 (10:24→22:52)
[2016-03-21] MEDS: COLCHICINE 0.6 MG TABLET (FP) PO SCH ×2 (10:27→21:28)
[2016-03-21] MEDS: ALBUTEROL SO4 0.083% IH SOL 2.5 MG/3 ML VIAL.NEB. NEB SCH ×2 (10:30→22:53)
[2016-03-21] MEDS ORDERED: SODIUM POLYSTYRENE SULFONATE 15 GM/60 ML BOTTLE PO ONE ×2 (10:30→20:39)
[2016-03-21] MEDS: ACETYLCYSTEINE 20% 200MG/ML 4 ML VIAL *FOR ORAL / INH USE ONLY NEB SCH ×2 (10:30→22:53)
--- NOTE | 2016-03-21 10:33 | PN ---
Progress Note, Physician History of Present Illness: no issues overnight no complaints overnight +cough non productive - Current Medication List Current Medications: Active Medications Acetaminophen (Tylenol -) 650 mg PO Q6H PRN PRN Reason: FEVER OR PAIN Last Admin: 03/17/16 05:10 Dose: 650 mg Acetylcysteine (Mucomyst 20 Oral / Inh Use Only*) 1,000 mg NEB BID JUAN Last Admin: 03/20/16 23:00 Dose: 1,000 mg Albuterol Sulfate (Ventolin 0.083% Nebulizer Soln -) 1 amp NEB BID JUAN Last Admin: 03/20/16 23:00 Dose: 1 amp Albuterol/Ipratropium (Duoneb -) 1 amp NEB Q6H PRN PRN Reason: PAIN Last Admin: 03/21/16 06:30 Dose: 1 amp Bacitracin (Bacitracin -) 1 applic TP DAILY [facility] Last Admin: 03/21/16 09:39 Dose: 1 applic Colchicine (Colcrys -) 0.6 mg PO BID [facility] Last Admin: 03/20/16 22:28 Dose: 0.6 mg Diphenhydramine HCl (Benadryl Injection -) 25 mg IVPUSH Q6H-IV JUAN Last Admin: 03/21/16 09:39 Dose: Not Given Docusate Sodium (Colace -) 100 mg PO TID PRN PRN Reason: CONSTIPATION Last Admin: 03/21/16 09:42 Dose: 100 mg Guaifenesin (Diabetic Tussin Dm -) 5 ml PO Q6H PRN PRN Reason: COUGH Last Admin: 03/20/16 22:38 Dose: 5 ml Heparin Sodium (Porcine) (Heparin -) 5,000 unit SQ BID [facility]UAN Last Admin: 03/21/16 09:40 Dose: 5,000 unit Indomethacin (Indocin -) 50 mg PO TID [facility] Last Admin: 03/21/16 06:31 Dose: 50 mg Metoprolol Tartrate (Lopressor -) 12.5 mg PO BID [facility] Last Admin: 03/21/16 09:43 Dose: 12.5 mg Nystatin/Triamcinolone Acetonide (Mycolog Ii Cream -) 1 applic TP BID [facility] Last Admin: 03/21/16 09:40 Dose: 1 applic Pantoprazole Sodium (Protonix -) 40 mg PO DAILY [facility] Last Admin: 03/21/16 09:44 Dose: 40 mg Zinc Acetate/Diphenhydramine (Benadryl 2% Cream) 1 applic TP BID [facility]UAN Last Admin: 03/21/16 09:41 Dose: 1 applic - Objective Vital Signs: Vital Signs Temperature 97.2 F L 03/21/16 06:00 Pulse Rate 100 H 03/21/16 08:00 Respiratory Rate 25 H 03/21/16 08:08 Blood Pressure 122/66 03/21/16 08:00 O2 Sat by Pulse Oximetry (%) 94 L 03/21/16 08:08 Constitutional: Yes: Well Nourished, No Distress, Calm, Thin Eyes: Yes: Other (bilateral contusion of eyes resolving) Neck: Yes: Trachea Midline Cardiovascular: Yes: Tachycardic Respiratory: Yes: +congestion + rhonchi Incision C/D/I Gastrointestinal: Yes: WNL, Normal Bowel Sounds, Soft Extremities: Yes: WNL Edema: No Integumentary: Yes: Other (large cauliflower fleshy/red like growth of right singh) Neurological: Yes: Alert, Oriented, Cranial Nerves II-XII Intact Labs: CBC, BMP 03/21/16 05:27 03/21/16 05:27 INR, PTT INR 1.16 (0.82-1.09) H 03/15/16 05:20 Assessment/Plan 75F with HTN admitted with nausea vomiting weakness and anorexia found to have a pericardial effusion on echo and CT scan transferred to ICU for further monitoring. Spoke to granddaughter who would like to be aggressive about her treatment. They would now like a pericardial window. they wants a work up for malignancy and they would like skin and bone biopsies Pericardial effusion:hemodynamically stable: possible effusion could be from recent viral infection no clinical evidence of pericardial tamponade s/p pericardial window 380ml fluid Drained clear fluid BP stable No JVD no muffled heart sounds CTA chest negative for PE CT surgery consult appreciated Nephrology consult appreciated hold norvasc per cardiology fluid bolus PRN hypotension [facility] contacted for imaging studies show lytic lesion on head CT and spinal XR no beta blockers continue indomethacin continue colchicine repeat echo is unchanged Diueresis significantly improved respiratory status of patient systolic CHF: newly diagnosed on echo mod-severe decreased LEVF, inferior wall hypokinesis, normal right ventricular function, mild eft atrial enlargement, mild mitral regurg/tricuspid regurg, moderate pericardial effusion, possible impending tamponade based on right atrial wall collapse Cardiology consult appreciated Post op from pericardial window 380ml drained SPEP/UPEP-SPEP negative Needs aggressive chest PT and pulmonary toilet continue beta oc Hypoxia: improved Patient saturating well in ICU on nasal cannula CTA chest negative for PE CXR congestion-unchanged Assess daily need for dieresis- today will not give lasix stop IVF will get Echo today for assessment of resolution of pericardial effusion f/u final CT chest read Rash: contact dermatitis benadryl IV Q6h PRN Mycalog 2% cream derm consult HTN: Controlled for now hold norvasc per cardiology for now continue beta oc hold marian I per nephrology mechanical fall: no issues at this time repeat head CT stable Skin lesion likely malignancy: likely some kind of benign or malignant growth possible patient has other malignancy Granddaughter would not like it biopsied will do bone scan SPEP/UPEP Proteinuria: Nephrology consult appreciated FEN: Stop IVF hyperkalemia which is worsening will give kayexolate 30mg po now recheck BMP sodium controlled diet PPx: HSQ SCD protonix PT consult get Transfer to Med surg Patient seen and case discussed with Dr. Temple
--- NOTE | 2016-03-21 11:43 | PN ---
Progress Note (short form) - Note Progress Note: s: no overnight events, pericardial drain removed, pt without cp or sob o: Vital Signs Period Temp Pulse Resp BP Sys/[facility] Pulse Ox Last 24 Hr 97.2 F-98.5 F 90-115 15-31 98-122/48-96 94-97 Constitutional: Yes: No Distress, Calm Eyes: No: Sclera Icterus Cardiovascular: Yes: Regular Rate and Rhythm, no jvd, S1, S2,. No: Gallop, Murmur, Rub Respiratory: Yes: cta bl No: Accessory Muscle Use, Rales, Wheezes Gastrointestinal: Yes: Normal Bowel Sounds, Soft. No: Tenderness Extremities: No: Cold Edema: No Integumentary: No: Jaundice diaphoresis Neurological: Yes: Alert. No: Seizure Psychiatric: No: Agitated Current Medications Generic Name Dose Route Start Last Admin Trade Name Freq PRN Reason Stop Dose Admin Acetaminophen 650 mg 03/11/16 10:54 03/17/16 05:10 Tylenol - PO 650 mg Q6H PRN Administration FEVER OR PAIN Acetylcysteine 1,000 mg 03/19/16 22:45 03/21/16 10:30 Mucomyst 20 Oral / Inh Use Only* NEB 1,000 mg BID JUAN Administration Albuterol Sulfate 1 amp 03/19/16 23:15 03/21/16 10:30 Ventolin 0.083% Nebulizer Soln - NEB 1 amp BID JUAN Administration Albuterol/Ipratropium 1 amp 03/20/16 15:15 03/21/16 06:30 Duoneb - NEB 1 amp Q6H PRN Administration PAIN Bacitracin 1 applic 03/16/16 15:45 03/21/16 09:39 Bacitracin - TP 1 applic DAILY JUAN Administration Colchicine 0.6 mg 03/10/16 22:00 03/21/16 10:27 Colcrys - PO 0.6 mg BID JUAN Administration Diphenhydramine HCl 25 mg 03/15/16 11:00 03/21/16 09:39 Benadryl Injection - IVPUSH Not Given Q6H-IV JUAN Docusate Sodium 100 mg 03/16/16 13:09 03/21/16 09:42 Colace - PO 100 mg TID PRN Administration CONSTIPATION Guaifenesin 5 ml 03/18/16 08:32 03/20/16 22:38 Diabetic Darrenssin Dm - PO 5 ml Q6H PRN Administration COUGH Heparin Sodium (Porcine) 5,000 unit 03/16/16 10:00 03/21/16 09:40 Heparin - SQ 5,000 unit BID JUAN Administration Indomethacin 50 mg 03/10/16 14:30 03/21/16 06:31 Indocin - PO 50 mg TID JUAN Administration Metoprolol Tartrate 12.5 mg 03/20/16 22:00 03/21/16 09:43 Lopressor - PO 12.5 mg BID JUAN Administration Nystatin/Triamcinolone Acetonide 1 applic 03/16/16 12:45 03/21/16 09:40 Mycolog Ii Cream - TP 1 applic BID JUAN Administration Pantoprazole Sodium 40 mg 03/10/16 15:00 03/21/16 09:44 Protonix - PO 40 mg DAILY JUAN Administration Zinc Acetate/Diphenhydramine 1 applic 03/14/16 10:00 03/21/16 09:41 Benadryl 2% Cream TP 1 applic BID JUAN Administration CBC, BMP 03/21/16 05:27 03/21/16 05:27 tele: sr, sinus tachy, occ pvcs CTA: no PE. Increased interstitial markings and atelectasis at bases Echo 03/09/16/: mod-sev dec lvef, inf wall hk, nl rv, mild lae, mild mr/tr, moderate pericardial eff, ?impending tamponade based on ra wall collapse Repeat echo 03/12/16: mild con LVH. mod-sev depressed LV sys func (global), 1+ MR/TR, effusion unchanged, still with early diastolic RA collapse. a/p: 75 f (she is 83 according to family) with hx htn, h/o HI x 2, dementia and possible recent diagnosis of cancer (unknown type), here with lethargy, weakness found to have systolic cardiomyopathy and pericardial effusion. pericardial effusion, possible acute pericarditis: -reviewed echo, there is a moderate circumferential pericardial eff present but no signs of tamponade. clinically no signs of tamponade as well. -CRP and ESR elevated but ? sec to malignancy; has no friction rub present and none previously documented on exam in prior notes; ecg with mild nonsp ST-Ts-- will cont indocin 50 TID and taper after 4-6 weeks course -hemodynamically stable throughout, with no clinical tamponade -s/p pericardial window 03/16 (diagnostic as well) with 500 cc non-bloody fluid removed and drain left in place. pericardial fluid cultures, cytology still pending. -03/19 pericardial drain removed. -03/20: worsened cough, malaise. evaluated with repeat chest ct showing mild chf, bl pleural effs -03/21: still with some chf on imaging and pericardial effusion improved (small on ct chest) so will give iv lasix dose today to help with congestion. will check repeat echo to monitor eff s/p window syst chf: -echo here shows mod-sev decreased lvef with inferior hypokinesis, patient with h/o prior HI--followed by doctors in [place] where she lives, per dtr (here visiting) -no angina or other signs acs, ce's negx3, ecg w/o ischemic changes or significant q waves -03/12: clinically no definite chf, exam equiovocal for JVD--monitor closely with IVF. - 03/13: Now off IVF. CXR with new rt pleural effusion. No change in effusion size or hemodynamics with IVF. gentle diuresis as mentioned above. Strict I/O' s, daily weights. -03/14-: no signs chf on exam/cxr. cont to hold lasix and ivfs for now -will defer ? of need for ischemia eval to [facility] ([facility] doctors (dtr states pt plans to return as soon as medically stable)--? LV dysfxn is chronic and stable -low dose BB trial as doing. ACEI trial (2.5 mg) given 03/19. -03/20: Bp trending down s/p lasix and lisinopril yesterday evening. will hold dose this morning. Consider resuming again tomorrow if bp remains stable. WBC rising and cough worsening. Would repeat chest CT. -03/21: still with some chf on imaging and pericardial effusion improved (small on ct chest) so will give iv lasix dose today to help with congestion. PAT: -runs to 120s on telem, ? related to irritation s/p pericardial window -improved since started lopressor 25 bid, BPs tolerating -cont same meds lethargy/weakness: -head ct w/o acute findings. likely 2/2 to aforementioned acute illnesses. htn: -bp remains stable here, cont bb. 03/20 slightly lower s/p diuresis and trial of lisinopril 2.5 mg last night. will hold KATHLEEN for now. Con't to monitor. can dc tele
[2016-03-21] MEDS ORDERED: FUROSEMIDE 40 MG/4 ML INJECTABLE VIAL IVPUSH ONE (11:49)
--- NOTE | 2016-03-21 12:57 | PN ---
Teaching Attending Note Name of Resident: Dajuan Gerber ATTENDING PHYSICIAN STATEMENT I saw and evaluated the patient. I reviewed the resident's note and discussed the case with the resident. I agree with the resident's findings and plan as documented. SUBJECTIVE: Pt seen and examined in the ICU. No events overnight. No arrhythmias noted. OBJECTIVE: Last Vital Signs Temp Pulse Resp BP Pulse Ox 97.2 F L 90 25 H 122/66 97 03/21/16 06:00 03/21/16 11:24 03/21/16 08:08 03/21/16 08:00 03/21/16 11:24 Intake & Output 03/18/16 03/19/16 03/20/16 03/21/16 23:59 23:59 23:59 23:59 Intake Total 1030 100 100 100 Output Total 335 1920 500 100 Balance 695 -1820 -400 0 Weight 117 lb 119 lb 9.6 oz 119 lb 114 lb 9.6 oz Gen: NAD at rest Heart: RRR Lung: scattered rhonchi Abd: soft, nontender Ext: no edema CBC, BMP 03/21/16 05:27 03/21/16 05:27 Active Medications Acetaminophen (Tylenol -) 650 mg PO Q6H PRN PRN Reason: FEVER OR PAIN Last Admin: 03/17/16 05:10 Dose: 650 mg Acetylcysteine (Mucomyst 20 Oral / Inh Use Only*) 1,000 mg NEB BID JUAN Last Admin: 03/21/16 10:30 Dose: 1,000 mg Albuterol Sulfate (Ventolin 0.083% Nebulizer Soln -) 1 amp NEB BID JUAN Last Admin: 03/21/16 10:30 Dose: 1 amp Albuterol/Ipratropium (Duoneb -) 1 amp NEB Q6H PRN PRN Reason: PAIN Last Admin: 03/21/16 06:30 Dose: 1 amp Bacitracin (Bacitracin -) 1 applic TP DAILY JUAN Last Admin: 03/21/16 09:39 Dose: 1 applic Colchicine (Colcrys -) 0.6 mg PO BID JUAN Last Admin: 03/21/16 10:27 Dose: 0.6 mg Diphenhydramine HCl (Benadryl Injection -) 25 mg IVPUSH Q6H-IV JUAN Last Admin: 03/21/16 09:39 Dose: Not Given Docusate Sodium (Colace -) 100 mg PO TID PRN PRN Reason: CONSTIPATION Last Admin: 03/21/16 09:42 Dose: 100 mg Guaifenesin (Diabetic Tussin Dm -) 5 ml PO Q6H PRN PRN Reason: COUGH Last Admin: 03/20/16 22:38 Dose: 5 ml Heparin Sodium (Porcine) (Heparin -) 5,000 unit SQ BID [facility] Last Admin: 03/21/16 09:40 Dose: 5,000 unit Indomethacin (Indocin -) 50 mg PO TID [facility] Last Admin: 03/21/16 06:31 Dose: 50 mg Metoprolol Tartrate (Lopressor -) 12.5 mg PO BID [facility] Last Admin: 03/21/16 09:43 Dose: 12.5 mg Nystatin/Triamcinolone Acetonide (Mycolog Ii Cream -) 1 applic TP BID [facility] Last Admin: 03/21/16 09:40 Dose: 1 applic Pantoprazole Sodium (Protonix -) 40 mg PO DAILY [facility] Last Admin: 03/21/16 09:44 Dose: 40 mg Zinc Acetate/Diphenhydramine (Benadryl 2% Cream) 1 applic TP BID [facility] Last Admin: 03/21/16 09:41 Dose: 1 applic ASSESSMENT AND PLAN: Pericardial Effusion Early Cardiac Tamponade s/p Pericardial Window LV Systolic Dysfunction Hypoxia resolved HTN Dementia r/o Malignancy - continue empiric colchicine, indomethacin - lasix as needed - monitor urine output, creatinine - incentive spirometry - DVT prophylaxis - can monitor on floor
--- NOTE | 2016-03-21 13:27 | PN ---
Progress Note, Physician History of Present Illness: Pt seen and examined at bedside. She is increasingly lethargic today. - Current Medication List Current Medications: Active Medications Acetaminophen (Tylenol -) 650 mg PO Q6H PRN PRN Reason: FEVER OR PAIN Last Admin: 03/17/16 05:10 Dose: 650 mg Acetylcysteine (Mucomyst 20 Oral / Inh Use Only*) 1,000 mg NEB BID JUAN Last Admin: 03/21/16 10:30 Dose: 1,000 mg Albuterol Sulfate (Ventolin 0.083% Nebulizer Soln -) 1 amp NEB BID JUAN Last Admin: 03/21/16 10:30 Dose: 1 amp Albuterol/Ipratropium (Duoneb -) 1 amp NEB Q6H PRN PRN Reason: PAIN Last Admin: 03/21/16 06:30 Dose: 1 amp Bacitracin (Bacitracin -) 1 applic TP DAILY [facility] Last Admin: 03/21/16 09:39 Dose: 1 applic Colchicine (Colcrys -) 0.6 mg PO BID JUAN Last Admin: 03/21/16 10:27 Dose: 0.6 mg Diphenhydramine HCl (Benadryl Injection -) 25 mg IVPUSH Q6H-IV JUAN Last Admin: 03/21/16 09:39 Dose: Not Given Docusate Sodium (Colace -) 100 mg PO TID PRN PRN Reason: CONSTIPATION Last Admin: 03/21/16 09:42 Dose: 100 mg Guaifenesin (Diabetic Tussin Dm -) 5 ml PO Q6H PRN PRN Reason: COUGH Last Admin: 03/20/16 22:38 Dose: 5 ml Heparin Sodium (Porcine) (Heparin -) 5,000 unit SQ BID JUAN Last Admin: 03/21/16 09:40 Dose: 5,000 unit Indomethacin (Indocin -) 50 mg PO TID JUAN Last Admin: 03/21/16 06:31 Dose: 50 mg Metoprolol Tartrate (Lopressor -) 12.5 mg PO BID JUAN Last Admin: 03/21/16 09:43 Dose: 12.5 mg Nystatin/Triamcinolone Acetonide (Mycolog Ii Cream -) 1 applic TP BID JUAN Last Admin: 03/21/16 09:40 Dose: 1 applic Pantoprazole Sodium (Protonix -) 40 mg PO DAILY JUAN Last Admin: 03/21/16 09:44 Dose: 40 mg Zinc Acetate/Diphenhydramine (Benadryl 2% Cream) 1 applic TP BID JUAN Last Admin: 03/21/16 09:41 Dose: 1 applic - Objective Vital Signs: Vital Signs Temperature 97.2 F L 03/21/16 06:00 Pulse Rate 90 03/21/16 11:24 Respiratory Rate 25 H 03/21/16 08:08 Blood Pressure 122/66 03/21/16 08:00 O2 Sat by Pulse Oximetry (%) 97 03/21/16 11:24 Constitutional: Yes: Calm Eyes: Yes: Conjunctiva Clear HENT: Yes: Atraumatic Neck: Yes: Supple Cardiovascular: Yes: S1, S2 Respiratory: Yes: CTA Bilaterally Gastrointestinal: Yes: Soft Genitourinary: Yes: WNL Musculoskeletal: Yes: WNL Edema: No Neurological: Yes: Lethargy Labs: CBC, BMP 03/21/16 05:27 03/21/16 05:27 INR, PTT INR 1.16 (0.82-1.09) H 03/15/16 05:20 Problem List - Problems (1) Hypoxia Code(s): R09.02 - HYPOXEMIA (2) Lethargy Code(s): R53.83 - OTHER FATIGUE (3) Pericardial effusion Code(s): I31.3 - PERICARDIAL EFFUSION (NONINFLAMMATORY) (4) Proteinuria Code(s): R80.9 - PROTEINURIA, UNSPECIFIED (5) Hypertension Code(s): I10 - ESSENTIAL (PRIMARY) HYPERTENSION (6) Skin cancer Code(s): C44.90 - UNSPECIFIED MALIGNANT NEOPLASM OF SKIN, UNSPECIFIED Assessment/Plan Current Medications Generic Name Dose Route Start Last Admin Trade Name Freq PRN Reason Stop Dose Admin Acetaminophen 650 mg 03/11/16 10:54 03/17/16 05:10 Tylenol - PO 650 mg Q6H PRN Administration FEVER OR PAIN Acetylcysteine 1,000 mg 03/19/16 22:45 03/21/16 10:30 Mucomyst 20 Oral / Inh Use Only* NEB 1,000 mg BID JUAN Administration Albuterol Sulfate 1 amp 03/19/16 23:15 03/21/16 10:30 Ventolin 0.083% Nebulizer Soln - NEB 1 amp BID JUAN Administration Albuterol/Ipratropium 1 amp 03/20/16 15:15 03/21/16 06:30 Duoneb - NEB 1 amp Q6H PRN Administration PAIN Bacitracin 1 applic 03/16/16 15:45 03/21/16 09:39 Bacitracin - TP 1 applic DAILY JUAN Administration Colchicine 0.6 mg 03/10/16 22:00 03/21/16 10:27 Colcrys - PO 0.6 mg BID JUAN Administration Diphenhydramine HCl 25 mg 03/15/16 11:00 03/21/16 09:39 Benadryl Injection - IVPUSH Not Given Q6H-IV JUAN Docusate Sodium 100 mg 03/16/16 13:09 03/21/16 09:42 Colace - PO 100 mg TID PRN Administration CONSTIPATION Guaifenesin 5 ml 03/18/16 08:32 03/20/16 22:38 Diabetic Tussin Dm - PO 5 ml Q6H PRN Administration COUGH Heparin Sodium (Porcine) 5,000 unit 03/16/16 10:00 03/21/16 09:40 Heparin - SQ 5,000 unit BID JUAN Administration Indomethacin 50 mg 03/10/16 14:30 03/21/16 06:31 Indocin - PO 50 mg TID JUAN Administration Metoprolol Tartrate 12.5 mg 03/20/16 22:00 03/21/16 09:43 Lopressor - PO 12.5 mg BID JUAN Administration Nystatin/Triamcinolone Acetonide 1 applic 03/16/16 12:45 03/21/16 09:40 Mycolog Ii Cream - TP 1 applic BID JUAN Administration Pantoprazole Sodium 40 mg 03/10/16 15:00 03/21/16 09:44 Protonix - PO 40 mg DAILY JUAN Administration Zinc Acetate/Diphenhydramine 1 applic 03/14/16 10:00 03/21/16 09:41 Benadryl 2% Cream TP 1 applic BID JUAN Administration Impression 1. pericardial effusion 2. hypoxia 3. proteinuria 4. HTN 5. skin cancer 6. congestion on cxr 7. s/p fall and laceration to head 8. hyperkalemia Plan - potassium is higher today, marian held - will monitor renal function - ct chest reviewed - cardio input appreciated - renal function is starting to worsen - d/c indomethacin of ok with cardio please - low potassium diet - will follow Dr Ruth
--- NOTE | 2016-03-21 20:31 | HP ---
CHIEF COMPLAINT: PCP: HISTORY OF PRESENT ILLNESS: ER course was notable for: (1) (2) (3) Recent Travel: PAST MEDICAL HISTORY: PAST SURGICAL HISTORY: Social History: Smoking: Alcohol: Drugs: Family History: Allergies milk Adverse Reaction (Verified 03/09/16 16:16) Milk Containing Products Adverse Reaction (Verified 03/09/16 16:16) tape Adverse Reaction (Uncoded 03/15/16 10:44) Rash HOME MEDICATIONS: Medication Instructions Recorded Amlodipine Besylate [Norvasc -] 5 mg PO DAILY 03/09/16 REVIEW OF SYSTEMS CONSTITUTIONAL: Absent: fever, chills, diaphoresis, generalized weakness, malaise, loss of appetite, weight change HEENT: Absent: rhinorrhea, nasal congestion, throat pain, throat swelling, difficulty swallowing, mouth swelling, ear pain, eye pain, visual changes CARDIOVASCULAR: Absent: chest pain, syncope, palpitations, irregular heart rate, lightheadedness , peripheral edema RESPIRATORY: Absent: cough, shortness of breath, dyspnea with exertion, orthopnea, wheezing, stridor, hemoptysis GASTROINTESTINAL: Absent: abdominal pain, abdominal distension, nausea, vomiting, diarrhea, constipation, melena, hematochezia GENITOURINARY: Absent: dysuria, frequency, urgency, hesitancy, hematuria, flank pain, genital pain MUSCULOSKELETAL: Absent: myalgia, arthralgia, joint swelling, back pain, neck pain SKIN: Absent: rash, itching, pallor HEMATOLOGIC/IMMUNOLOGIC: Absent: easy bleeding, easy bruising, lymphadenopathy, frequent infections ENDOCRINE: Absent: unexplained weight gain, unexplained weight loss, heat intolerance, cold intolerance NEUROLOGIC: Absent: headache, focal weakness or paresthesias, dizziness, unsteady gait, seizure, mental status changes, bladder or bowel incontinence PSYCHIATRIC: Absent: anxiety, depression, suicidal or homicidal ideation, hallucinations. PHYSICAL EXAMINATION Vital Signs - 24 hr 03/20/16 03/21/16 03/21/16 22:00 00:00 02:00 Temperature 98.5 F 98 F Pulse Rate 115 H 90 98 H Respiratory 28 H 22 21 Rate Blood Pressure 110/59 103/59 105/61 O2 Sat by Pulse Oximetry (%) 03/21/16 03/21/16 03/21/16 04:00 06:00 08:00 Temperature 97.2 F L Pulse Rate 100 H 94 H 100 H Respiratory 26 H 29 H 25 H Rate Blood Pressure 100/48 111/96 122/66 O2 Sat by Pulse Oximetry (%) 03/21/16 03/21/16 03/21/16 08:08 10:00 11:24 Temperature 97.5 F L Pulse Rate 98 H 90 Respiratory 25 H 25 H Rate Blood Pressure 98/66 O2 Sat by Pulse 94 L 97 Oximetry (%) 03/21/16 03/21/16 03/21/16 12:00 14:00 16:00 Temperature Pulse Rate 89 90 97 H Respiratory 22 20 20 Rate Blood Pressure 103/69 89/70 135/59 O2 Sat by Pulse Oximetry (%) 03/21/16 18:00 Temperature Pulse Rate 99 H Respiratory 20 Rate Blood Pressure 125/80 O2 Sat by Pulse Oximetry (%) Laboratory Results - last 24 hr 03/21/16 03/21/16 03/21/16 05:27 05:27 07:20 WBC 11.2 H RBC 3.63 Hgb 11.1 Hct 34.5 MCV 95.2 MCHC 32.1 RDW 16.9 H Plt Count 207 MPV 11.2 H Puncture Site Left brachial ABG pH 7.40 ABG pCO2 at Pt Temp 47.6 H ABG pO2 at Pt Temp 76.8 ABG HCO3 29.0 H ABG O2 Sat (Measured) 95.4 ABG O2 Content 14.7 L ABG Base Excess 4.0 H Obdulio Test Positive O2 Delivery Device N/c Oxygen Flow Rate 4 lpm PEEP 0.0 Sodium 136 Potassium 5.4 H Chloride 98 Carbon Dioxide 30 Anion Gap 8 BUN 39 H D Creatinine 0.9 Creat Clearance w eGFR > 60 Random Glucose 121 H D Calcium 8.9 Phosphorus 3.1 Magnesium 2.2 Total Bilirubin 0.6 AST 11 L ALT 14 Alkaline Phosphatase 130 H Total Protein 6.0 L Albumin 2.2 L ASSESSMENT/PLAN: This is a 75-year-old female with a PMH Hypertension, MIx2, hx of multiple falls (most recent 03/05/16) who presented to the ED with decrease PO intake, lethargy, dizziness and was admitted for further evaluation and management of her emergent condition. Plan: #Failure to thrive -poor clinical progress -have discussed with daughter that patient may not ever be healthy enough to go back to [place]. She is still hopeful, but wants to speak with Dr. Ruth ( family friend) regarding her overall condition. She may want to seek out Palliative support care, considering only -Any further palliative conversations (if she chooses to go that route) would need to include Shayy [phone], a family friend who is also a nurse -decision to be made tomorrow hopefully ( will be at bedside) -She remains on 3-4L NC, appears chronically ill # Cardiology: Moderate pericardial effusion s/p subxiphoid pericardial window -pericardial drained removed on 03/19 -AFB and fungal cultures pending, gram stain negative. Suspect viral etiology? #Chest pain, acute systolic HF - CTA chest negative for PE - Hx of [place] x2 in the past -on b-oc, low dose KATHLEEN started 03/20--NOW DISCONTINUED DUE TO K =5.2 -echo with moderateto severe LVEF with inferior wall hypokinesis, cards following #Hyperkalemia -has recently started KATHLEEN, now holding -low K diet -nephro following #Pulm: Acute hypoxia -Stable and remains on O2 via NC prn (stable 3-4 L) - CTA with no evidence of PE -robitussin for cough, improved with lasix. Will need to dose PRN #Oncology: RLE skin lesion - Imaging from [place] with lytic lesions throughout the calvarium and the cervical spine. 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 -Per daughter, does not want further intervention #MSK: S/p mechanical fall with facial injuries - No acute fractures per records from [facility] #Prophylaxis: - Heparin 5,000u sq bid, activity as tolerated #Dispo: - May stepdown if clinically remains stable today CODE STATUS: FULL CODE
--- NOTE | 2016-03-21 20:36 | PN ---
Physical Exam: SUBJECTIVE: Patient seen and examined. Daughter is concerned about whether or not her mother will ever be well enough to go back to [place]. OBJECTIVE: Vital Signs Period Temp Pulse Resp BP Sys/Sanford Pulse Ox Last 24 Hr 97.2 F-98.5 F 89-115 20- 89-135/48-96 94-97 Physical Exam: General: NAD, on 3L NC, chronically ill appearing, Ukrainian speaking HEENT: bilateral resolving periorbital eccyhmosis. Left mid forehead sutures intact with dried blood Lungs: Chest with sternal incision, C/D/I. Bilateral crackles Heart: tachycardic, S1 S2 Abd: Soft, non-tender, non-distended. BS present Ext: RUE eccyhmosis. RLE skin lesion Laboratory Results - last 24 hr 03/21/16 03/21/16 03/21/16 05:27 05:27 07:20 WBC 11.2 H RBC 3.63 Hgb 11.1 Hct 34.5 MCV 95.2 MCHC 32.1 RDW 16.9 H Plt Count 207 MPV 11.2 H Puncture Site Left brachial ABG pH 7.40 ABG pCO2 at Pt Temp 47.6 H ABG pO2 at Pt Temp 76.8 ABG HCO3 29.0 H ABG O2 Sat (Measured) 95.4 ABG O2 Content 14.7 L ABG Base Excess 4.0 H Obdulio Test Positive O2 Delivery Device N/c Oxygen Flow Rate 4 lpm PEEP 0.0 Sodium 136 Potassium 5.4 H Chloride 98 Carbon Dioxide 30 Anion Gap 8 BUN 39 H D Creatinine 0.9 Creat Clearance w eGFR > 60 Random Glucose 121 H D Calcium 8.9 Phosphorus 3.1 Magnesium 2.2 Total Bilirubin 0.6 AST 11 L ALT 14 Alkaline Phosphatase 130 H Total Protein 6.0 L Albumin 2.2 L Active Medications Generic Name Dose Route Start Last Admin Trade Name Freq PRN Reason Stop Dose Admin Acetaminophen 650 mg 03/11/16 10:54 03/17/16 05:10 Tylenol - PO 650 mg Q6H PRN Administration FEVER OR PAIN Acetylcysteine 1,000 mg 03/19/16 22:45 03/21/16 10:30 Mucomyst 20 Oral / Inh Use Only* NEB 1,000 mg BID JUAN Administration Albuterol Sulfate 1 amp 03/19/16 23:15 03/21/16 10:30 Ventolin 0.083% Nebulizer Soln - NEB 1 amp BID JUAN Administration Albuterol/Ipratropium 1 amp 03/20/16 15:15 03/21/16 06:30 Duoneb - NEB 1 amp Q6H PRN Administration PAIN Bacitracin 1 applic 03/16/16 15:45 03/21/16 09:39 Bacitracin - TP 1 applic DAILY JUAN Administration Colchicine 0.6 mg 03/10/16 22:00 03/21/16 10:27 Colcrys - PO 0.6 mg BID JUAN Administration Diphenhydramine HCl 25 mg 03/15/16 11:00 03/21/16 14:36 Benadryl Injection - IVPUSH 25 mg Q6H-IV JUAN Administration Docusate Sodium 100 mg 03/16/16 13:09 03/21/16 09:42 Colace - PO 100 mg TID PRN Administration CONSTIPATION Guaifenesin 5 ml 03/18/16 08:32 03/20/16 22:38 Diabetic Tussin Dm - PO 5 ml Q6H PRN Administration COUGH Heparin Sodium (Porcine) 5,000 unit 03/16/16 10:00 03/21/16 09:40 Heparin - SQ 5,000 unit BID JUAN Administration Indomethacin 50 mg 03/10/16 14:30 03/21/16 14:37 Indocin - PO 50 mg TID JUAN Administration Metoprolol Tartrate 12.5 mg 03/20/16 22:00 03/21/16 09:43 Lopressor - PO 12.5 mg BID JUAN Administration Nystatin/Triamcinolone Acetonide 1 applic 03/16/16 12:45 03/21/16 09:40 Mycolog Ii Cream - TP 1 applic BID JUAN Administration Pantoprazole Sodium 40 mg 03/10/16 15:00 03/21/16 09:44 Protonix - PO 40 mg DAILY JUAN Administration Zinc Acetate/Diphenhydramine 1 applic 03/14/16 10:00 03/21/16 09:41 Benadryl 2% Cream TP 1 applic BID JUAN Administration ASSESSMENT/PLAN: This is a 75-year-old female with a PMH Hypertension, MIx2, hx of multiple falls (most recent 03/05/16) who presented to the ED with decrease PO intake, lethargy, dizziness and was admitted for further evaluation and management of her emergent condition. Plan: #Failure to thrive -poor clinical progress -have discussed with daughter that patient may not ever be healthy enough to go back to [place]. She is still hopeful, but wants to speak with Dr. Ruth ( family friend) regarding her overall condition. She may want to seek out Palliative support care, considering only -Any further palliative conversations (if she chooses to go that route) would need to include Shayy [phone], a family friend who is also a nurse -decision to be made tomorrow hopefully ( will be at bedside) -She remains on 3-4L NC, appears chronically ill -lasix prn -poor PO intake, requires lots of encouragement. Would like [facility] to weigh in - clinimix? need for PEG? # Cardiology: Moderate pericardial effusion s/p subxiphoid pericardial window -pericardial drained removed on 03/19 -AFB and fungal cultures pending, gram stain negative. Suspect viral etiology? #Chest pain, acute systolic HF - CTA chest negative for PE - Hx of OR x2 in the past -on b-oc, low dose KATHLEEN started 03/20--NOW DISCONTINUED DUE TO K =5.2 -echo with moderateto severe LVEF with inferior wall hypokinesis, cards following #Hyperkalemia -has recently started KATHLEEN, now holding -low K diet -nephro following -ordered for kayexylate tonight for K=5.4 but no sure pt will be willing to take #Pulm: Acute hypoxia -Stable and remains on O2 via NC prn (stable 3-4 L) - CTA with no evidence of PE -robitussin for cough, improved with lasix. Will need to dose PRN #Oncology: RLE skin lesion - Imaging from [place] with lytic lesions throughout the calvarium and the cervical spine. 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 -Per daughter, does not want further intervention #MSK: S/p mechanical fall with facial injuries - No acute fractures per records [facility] #Prophylaxis: -will switch to lovenox daily CODE STATUS: FULL CODE Visit type - Emergency Visit Emergency Visit: Yes ED Registration Date: 03/09/16 Care time: The patient presented to the Emergency Department on the above date and was hospitalized for further evaluation of their emergent condition. - New Patient This patient is new to me today: No - Critical Care Critical Care patient: No
[2016-03-22] MEDS: guaiFENesin/D-M SUGAR-FREE/ACLHOL-FREE 118 ML BOTTLE PO PRN (02:21)
[2016-03-22] MEDS: INDOMETHACIN 50 MG CAPSULE PO SCH ×2 (05:23→17:03)
[2016-03-22 07:27] LABS: MCH 31.4 pg (25.7-33.7); MCHC 32.7 g/dl (32.0-36.0); MEAN PLT VOLUME 10.6 fl (7.5-11.1); PLATELET COUNT 222 K/MM3 (134-434); RDW 17.2 % (11.6-15.6); WHITE BLOOD COUNT 9.4 K/mm3 (4.0-10.0)
[2016-03-22 07:45] LABS: CALCIUM 8.5 mg/dL (8.5-10.1); CREATININE 1.1 mg/dL (0.55-1.02); MAGNESIUM 2.4 mg/dL (1.8-2.4)
--- NOTE | 2016-03-22 10:48 | PN ---
Progress Note (short form) - Note Progress Note: PULMONARY More short of breath today. No chest pain. No fevers recorded. Last Vital Signs Temp Pulse Resp BP Pulse Ox 98.6 F 88 20 100/52 94 L 03/22/16 05:00 03/22/16 05:00 03/22/16 05:00 03/22/16 05:00 03/21/16 21:00 Gen: mildly tachypneic at rest Heart: tachycardic, regular Lung: scattered rhonchi Abd: soft, nontender Ext: no edema CBC, BMP 03/22/16 06:00 03/22/16 06:00 Active Medications Acetaminophen (Tylenol -) 650 mg PO Q6H PRN PRN Reason: FEVER OR PAIN Last Admin: 03/17/16 05:10 Dose: 650 mg Acetylcysteine (Mucomyst 20 Oral / Inh Use Only*) 1,000 mg NEB BID [facility] Last Admin: 03/21/16 22:53 Dose: 1,000 mg Albuterol Sulfate (Ventolin 0.083% Nebulizer Soln -) 1 amp NEB BID [facility] Last Admin: 03/21/16 22:53 Dose: 1 amp Albuterol/Ipratropium (Duoneb -) 1 amp NEB Q6H PRN PRN Reason: PAIN Last Admin: 03/21/16 06:30 Dose: 1 amp Bacitracin (Bacitracin -) 1 applic TP DAILY [facility] Last Admin: 03/21/16 09:39 Dose: 1 applic Colchicine (Colcrys -) 0.6 mg PO BID [facility] Last Admin: 03/21/16 21:28 Dose: 0.6 mg Diphenhydramine HCl (Benadryl Injection -) 25 mg IVPUSH Q6H-IV [facility] Last Admin: 03/22/16 02:54 Dose: 25 mg Docusate Sodium (Colace -) 100 mg PO TID PRN PRN Reason: CONSTIPATION Last Admin: 03/21/16 09:42 Dose: 100 mg Enoxaparin Sodium (Lovenox -) 30 mg SQ DAILY [facility] Guaifenesin (Diabetic Tussin Dm -) 5 ml PO Q6H PRN PRN Reason: COUGH Last Admin: 03/22/16 02:21 Dose: 5 ml Indomethacin (Indocin -) 50 mg PO TID [facility] Last Admin: 03/22/16 05:23 Dose: 50 mg Metoprolol Tartrate (Lopressor -) 12.5 mg PO BID [facility] Last Admin: 03/21/16 21:29 Dose: 12.5 mg Nystatin/Triamcinolone Acetonide (Mycolog Ii Cream -) 1 applic TP BID [facility] Last Admin: 03/21/16 21:30 Dose: 1 applic Pantoprazole Sodium (Protonix -) 40 mg PO DAILY [facility] Last Admin: 03/21/16 09:44 Dose: 40 mg Zinc Acetate/Diphenhydramine (Benadryl 2% Cream) 1 applic TP BID [facility] Last Admin: 03/21/16 21:27 Dose: Not Given A/P Pericardial Effusion Early Cardiac Tamponade s/p Pericardial Window LV Systolic Dysfunction Hypoxia resolved HTN Dementia r/o Malignancy - continue empiric colchicine, indomethacin - pt congested on exam and on CXR, will give lasix today - monitor urine output, creatinine - incentive spirometry - DVT prophylaxis
[2016-03-22] MEDS: ALBUTEROL SO4 0.083% IH SOL 2.5 MG/3 ML VIAL.NEB. NEB SCH ×2 (10:50→22:47)
[2016-03-22] MEDS: ACETYLCYSTEINE 20% 200MG/ML 4 ML VIAL *FOR ORAL / INH USE ONLY NEB SCH ×2 (10:50→22:47)
[2016-03-22] MEDS ORDERED: FUROSEMIDE 40 MG/4 ML INJECTABLE VIAL IVPUSH ONE ×2 (11:30→17:52)
--- NOTE | 2016-03-22 11:32 | PN ---
Progress Note (short form) - Note Progress Note: s: feels weak, no sob cp dizzy--family translating o: Vital Signs Period Temp Pulse Resp BP Sys/Sanford Pulse Ox Last 24 Hr 98 F-99.1 F 86-101 20-22 89-135/52-80 94-96 Constitutional: Yes: No Distress, Calm Eyes: No: Sclera Icterus Cardiovascular: Yes: Regular Rate and Rhythm, no jvd, S1, S2,. No: Gallop, Murmur, Rub Respiratory: Yes: scattered rhonchi; No: Accessory Muscle Use, Rales, Wheezes Gastrointestinal: Yes: Normal Bowel Sounds, Soft. No: Tenderness Extremities: No: Cold Edema: No Integumentary: No: Jaundice diaphoresis Neurological: Yes: Alert. Psychiatric: No: Agitated Current Medications Generic Name Dose Route Start Last Admin Trade Name Freq PRN Reason Stop Dose Admin Acetaminophen 650 mg 03/11/16 10:54 03/17/16 05:10 Tylenol - PO 650 mg Q6H PRN Administration FEVER OR PAIN Acetylcysteine 1,000 mg 03/19/16 22:45 03/22/16 10:50 Mucomyst 20 Oral / Inh Use Only* NEB 1,000 mg BID JUAN Administration Albuterol Sulfate 1 amp 03/19/16 23:15 03/22/16 10:50 Ventolin 0.083% Nebulizer Soln - NEB 1 amp BID JUAN Administration Albuterol/Ipratropium 1 amp 03/20/16 15:15 03/21/16 06:30 Duoneb - NEB 1 amp Q6H PRN Administration PAIN Bacitracin 1 applic 03/16/16 15:45 03/21/16 09:39 Bacitracin - TP 1 applic DAILY JUAN Administration Colchicine 0.6 mg 03/10/16 22:00 03/21/16 21:28 Colcrys - PO 0.6 mg BID JUAN Administration Diphenhydramine HCl 25 mg 03/15/16 11:00 03/22/16 02:54 Benadryl Injection - IVPUSH 25 mg Q6H-IV JUAN Administration Docusate Sodium 100 mg 03/16/16 13:09 03/21/16 09:42 Colace - PO 100 mg TID PRN Administration CONSTIPATION Enoxaparin Sodium 30 mg 03/22/16 10:00 Lovenox - SQ DAILY JUAN Furosemide 40 mg 03/22/16 11:30 Lasix Injection - IVPUSH 03/22/16 11:31 ONCE ONE Guaifenesin 5 ml 03/18/16 08:32 03/22/16 02:21 Diabetic Tussin Dm - PO 5 ml Q6H PRN Administration COUGH Indomethacin 50 mg 03/10/16 14:30 03/22/16 05:23 Indocin - PO 50 mg TID JUAN Administration Metoprolol Tartrate 12.5 mg 03/20/16 22:00 03/21/16 21:29 Lopressor - PO 12.5 mg BID JUAN Administration Nystatin/Triamcinolone Acetonide 1 applic 03/16/16 12:45 03/21/16 21:30 Mycolog Ii Cream - TP 1 applic BID JUAN Administration Pantoprazole Sodium 40 mg 03/10/16 15:00 03/21/16 09:44 Protonix - PO 40 mg DAILY JUAN Administration Zinc Acetate/Diphenhydramine 1 applic 03/14/16 10:00 03/21/16 21:27 Benadryl 2% Cream TP Not Given BID JUAN CBC, BMP 03/22/16 06:00 03/22/16 06:00 CTA: no PE. Increased interstitial markings and atelectasis at bases Echo 03/09/16/: mod-sev dec lvef, inf wall hk, nl rv, mild lae, mild mr/tr, moderate pericardial eff, ?impending tamponade based on ra wall collapse Repeat echo 03/12/16: mild con LVH. mod-sev depressed LV sys func (global), 1+ MR/TR, effusion unchanged, still with early diastolic RA collapse. repeat echo 03/21/16: sev dec lvef, nl rv, mild piotr, mild mr, mod-sev tr, rvsp 40-50, trivial pericardial eff, no signs tamponade a/p: 75 f (she is 83 according to family) with hx htn, h/o [place] x 2, dementia and possible recent diagnosis of cancer (unknown type), here with lethargy, weakness found to have systolic cardiomyopathy and pericardial effusion. pericardial effusion, possible acute pericarditis: -reviewed echo, there is a moderate circumferential pericardial eff present but no signs of tamponade. clinically no signs of tamponade as well. -CRP and ESR elevated but ? sec to malignancy; has no friction rub present and none previously documented on exam in prior notes; ecg with mild nonsp ST-Ts-- will cont indocin 50 TID and taper after 4-6 weeks course -hemodynamically stable throughout, with no clinical tamponade -s/p pericardial window 03/16 (diagnostic as well) with 500 cc non-bloody fluid removed. pericardial fluid cultures, cytology pending. -repeat echo shows resolution of eff syst chf: -echo here shows mod-sev decreased lvef with inferior hypokinesis, patient with h/o prior [place]--followed by doctors in [place] where she lives, per dtr (here visiting) -no angina or other signs acs, ce's negx3, ecg w/o ischemic changes or significant q waves -03/12: clinically no definite chf, exam equiovocal for JVD--monitor closely with IVF. - 03/13: Now off IVF. CXR with new rt pleural effusion. No change in effusion size or hemodynamics with IVF. gentle diuresis as mentioned above. Strict I/O' s, daily weights. -03/14-: no signs chf on exam/cxr. cont to hold lasix and ivfs for now -will defer ? of need for ischemia eval [place] doctors (dtr states pt plans to return as soon as medically stable)--? LV dysfxn is chronic and stable -low dose BB trial as doing. ACEI trial (2.5 mg) given 03/19. -03/20: Bp trending down s/p lasix and lisinopril yesterday evening. will hold dose this morning. Consider resuming again tomorrow if bp remains stable. WBC rising and cough worsening. Would repeat chest CT. -03/21: still with some chf on imaging and pericardial effusion improved (small on ct chest) so will give iv lasix dose today to help with congestion. -03/22: still with some chf on cxr so agree with 40 iv lasix dose today to help with congestion. PAT: -runs to 120s on telem, ? related to irritation s/p pericardial window -improved since started lopressor 25 bid, BPs tolerating -cont same meds lethargy/weakness: -head ct w/o acute findings. likely 2/2 to aforementioned acute illnesses. htn: -bp remains stable here, cont bb. 03/20 slightly lower s/p diuresis and trial of lisinopril 2.5 mg last night. will hold KATHLEEN for now. Con't to monitor.
[2016-03-22] MEDS: PANTOPRAZOLE 40 MG TABLET (FP) PO SCH (11:35)
[2016-03-22] MEDS: METOPROLOL TARTRATE 25 MG TABLET (FP) PO SCH (11:35)
[2016-03-22] MEDS: ENOXAPARIN NA (PORCINE) 30 MG/0.3 ML DISP.SYRIN SQ SCH (11:36)
[2016-03-22] MEDS: COLCHICINE 0.6 MG TABLET (FP) PO SCH ×2 (11:37→21:23)
[2016-03-22] MEDS: BACITRACIN 30 GM TUBE TOPICAL OINTMENT TP SCH (12:04)
[2016-03-22] MEDS: NYSTATIN/TRIAMCINOLONE TOPICAL CREAM 15 GM TUBE TP SCH ×2 (12:06→21:31)
--- NOTE | 2016-03-22 14:47 | PN ---
Progress Note, Physician History of Present Illness: Pt seen and examined at bedside. She is awake and appears comfortable. - Current Medication List Current Medications: Active Medications Acetaminophen (Tylenol -) 650 mg PO Q6H PRN PRN Reason: FEVER OR PAIN Last Admin: 03/17/16 05:10 Dose: 650 mg Acetylcysteine (Mucomyst 20 Oral / Inh Use Only*) 1,000 mg NEB BID JUAN Last Admin: 03/22/16 10:50 Dose: 1,000 mg Albuterol Sulfate (Ventolin 0.083% Nebulizer Soln -) 1 amp NEB BID JUAN Last Admin: 03/22/16 10:50 Dose: 1 amp Albuterol/Ipratropium (Duoneb -) 1 amp NEB Q6H PRN PRN Reason: PAIN Last Admin: 03/21/16 06:30 Dose: 1 amp Bacitracin (Bacitracin -) 1 applic TP DAILY [facility] Last Admin: 03/22/16 12:04 Dose: 1 applic Colchicine (Colcrys -) 0.6 mg PO BID [facility]UAN Last Admin: 03/22/16 11:37 Dose: 0.6 mg Diphenhydramine HCl (Benadryl Injection -) 25 mg IVPUSH Q6H-IV [facility] Last Admin: 03/22/16 10:03 Dose: 25 mg Docusate Sodium (Colace -) 100 mg PO TID PRN PRN Reason: CONSTIPATION Last Admin: 03/21/16 09:42 Dose: 100 mg Enoxaparin Sodium (Lovenox -) 30 mg SQ DAILY [facility] Last Admin: 03/22/16 11:36 Dose: 30 mg Guaifenesin (Diabetic Tussin Dm -) 5 ml PO Q6H PRN PRN Reason: COUGH Last Admin: 03/22/16 02:21 Dose: 5 ml Indomethacin (Indocin -) 50 mg PO TID [facility]UAN Last Admin: 03/22/16 05:23 Dose: 50 mg Metoprolol Tartrate (Lopressor -) 12.5 mg PO BID [facility] Last Admin: 03/22/16 11:35 Dose: 12.5 mg Nystatin/Triamcinolone Acetonide (Mycolog Ii Cream -) 1 applic TP BID [facility]UAN Last Admin: 03/22/16 12:06 Dose: Not Given Pantoprazole Sodium (Protonix -) 40 mg PO DAILY [facility] Last Admin: 03/22/16 11:35 Dose: 40 mg Zinc Acetate/Diphenhydramine (Benadryl 2% Cream) 1 applic TP BID [facility]UAN Last Admin: 03/22/16 12:06 Dose: Not Given - Objective Vital Signs: Vital Signs Temperature 97.3 F L 03/22/16 07:00 Pulse Rate 101 H 03/22/16 10:40 Respiratory Rate 20 03/22/16 07:00 Blood Pressure 114/65 03/22/16 07:00 O2 Sat by Pulse Oximetry (%) 96 03/22/16 10:40 Constitutional: Yes: Calm Eyes: Yes: Conjunctiva Clear HENT: Yes: Atraumatic Cardiovascular: Yes: S1, S2 Respiratory: Yes: On Nasal O2 Gastrointestinal: Yes: Soft Genitourinary: Yes: WNL Musculoskeletal: Yes: Muscle Weakness Edema: No Neurological: Yes: Oriented Labs: CBC, BMP 03/22/16 06:00 03/22/16 06:00 INR, PTT INR 1.16 (0.82-1.09) H 03/15/16 05:20 - ....Imaging Chest X-ray: Report Reviewed Problem List - Problems (1) Hypoxia Code(s): R09.02 - HYPOXEMIA (2) Lethargy Code(s): R53.83 - OTHER FATIGUE (3) Pericardial effusion Code(s): I31.3 - PERICARDIAL EFFUSION (NONINFLAMMATORY) (4) Proteinuria Code(s): R80.9 - PROTEINURIA, UNSPECIFIED (5) Hypertension Code(s): I10 - ESSENTIAL (PRIMARY) HYPERTENSION (6) Skin cancer Code(s): C44.90 - UNSPECIFIED MALIGNANT NEOPLASM OF SKIN, UNSPECIFIED Assessment/Plan Current Medications Generic Name Dose Route Start Last Admin Trade Name Freq PRN Reason Stop Dose Admin Acetaminophen 650 mg 03/11/16 10:54 03/17/16 05:10 Tylenol - PO 650 mg Q6H PRN Administration FEVER OR PAIN Acetylcysteine 1,000 mg 03/19/16 22:45 03/22/16 10:50 Mucomyst 20 Oral / Inh Use Only* NEB 1,000 mg BID JUAN Administration Albuterol Sulfate 1 amp 03/19/16 23:15 03/22/16 10:50 Ventolin 0.083% Nebulizer Soln - NEB 1 amp BID JUAN Administration Albuterol/Ipratropium 1 amp 03/20/16 15:15 03/21/16 06:30 Duoneb - NEB 1 amp Q6H PRN Administration PAIN Bacitracin 1 applic 03/16/16 15:45 03/22/16 12:04 Bacitracin - TP 1 applic DAILY JUAN Administration Colchicine 0.6 mg 03/10/16 22:00 03/22/16 11:37 Colcrys - PO 0.6 mg BID JUAN Administration Diphenhydramine HCl 25 mg 03/15/16 11:00 03/22/16 10:03 Benadryl Injection - IVPUSH 25 mg Q6H-IV JUAN Administration Docusate Sodium 100 mg 03/16/16 13:09 03/21/16 09:42 Colace - PO 100 mg TID PRN Administration CONSTIPATION Enoxaparin Sodium 30 mg 03/22/16 10:00 03/22/16 11:36 Lovenox - SQ 30 mg DAILY JUAN Administration Guaifenesin 5 ml 03/18/16 08:32 03/22/16 02:21 Diabetic Tussin Dm - PO 5 ml Q6H PRN Administration COUGH Indomethacin 50 mg 03/10/16 14:30 03/22/16 05:23 Indocin - PO 50 mg TID JUAN Administration Metoprolol Tartrate 12.5 mg 03/20/16 22:00 03/22/16 11:35 Lopressor - PO 12.5 mg BID JUAN Administration Nystatin/Triamcinolone Acetonide 1 applic 03/16/16 12:45 03/22/16 12:06 Mycolog Ii Cream - TP Not Given BID JUAN Pantoprazole Sodium 40 mg 03/10/16 15:00 03/22/16 11:35 Protonix - PO 40 mg DAILY JUAN Administration Zinc Acetate/Diphenhydramine 1 applic 03/14/16 10:00 03/22/16 12:06 Benadryl 2% Cream TP Not Given BID [facility] Impression 1. pericardial effusion 2. hypoxia 3. proteinuria 4. HTN 5. skin cancer 6. congestion on cxr 7. s/p fall and laceration to head 8. hyperkalemia 9. azotemia Plan - renal function is worsening - caution with diuretics - cont pt and rehab - low potassium diet - called and discussed with cardiology, can stop indomethacin - low potassium diet - will follow Dr Ruth
[2016-03-22] MEDS ORDERED: METOPROLOL TARTRATE 5 MG/5 ML VIAL IVPUSH ONE (17:53)
[2016-03-22] MEDS ORDERED: METOPROLOL TARTRATE 25 MG TABLET (FP) PO ONE (18:35)
--- NOTE | 2016-03-22 19:21 | PN ---
Physical Exam: SUBJECTIVE: Patient seen and examined. C/o continued weakness, dizziness, slight SOB. Denies palpitations, CP OBJECTIVE: Vital Signs - 24 hr 3 03/21/16 03/21/16 03/22/16 21:00 21:18 01:00 Temperature 98 F 99.1 F Pulse Rate 93 H 86 Respiratory 20 20 20 Rate Blood Pressure 105/66 109/74 O2 Sat by Pulse 94 L Oximetry (%) 3 03/22/16 03/22/16 03/22/16 05:00 07:00 09:00 Temperature 98.6 F 97.3 F L Pulse Rate 88 73 Respiratory 20 20 Rate Blood Pressure 100/52 114/65 O2 Sat by Pulse 99 Oximetry (%) 3 03/22/16 03/22/16 03/22/16 10:40 14:38 16:30 Temperature 98.5 F 97.7 F Pulse Rate 101 H 70 84 Respiratory 20 18 Rate Blood Pressure 88/53 O2 Sat by Pulse 96 Oximetry (%) 550PM: T98.7 P153 R18 BP119/79 SPO2 98%2LNC GENERAL: The patient is awake, alert, and oriented to person and place, in mild distress. HEAD: Normal with no signs of trauma. EYES: PERRL, extraocular movements intact, sclera anicteric, conjunctiva clear. No ptosis. ENT: Ears normal, nares patent, oropharynx clear without exudates, moist mucous membranes. NECK: Trachea midline, full range of motion, supple. LUNGS: Breath sounds equal, clear to auscultation bilaterally, no wheezes, no accessory muscle use. + crackles bilat bases HEART: Irregular rate and rhythm, S1, S2 without murmur, rub or gallop. + tachy ABDOMEN: Soft, nontender, nondistended, normoactive bowel sounds, no guarding, no rebound, no hepatosplenomegaly, no masses. EXTREMITIES: 2+ pulses, warm, well-perfused, no edema. NEUROLOGICAL: Cranial nerves II through XII grossly intact. Normal speech, gait not observed. PSYCH: Normal mood, normal affect. SKIN: Warm, dry, normal turgor, no rashes or lesions noted Laboratory Results - last 24 hr 3 03/22/16 03/22/16 06:00 06:00 WBC 9.4 RBC 3.68 Hgb 11.5 Hct 35.3 MCV 96.0 MCHC 32.7 RDW 17.2 H Plt Count 222 MPV 10.6 Sodium 139 Potassium 5.3 H Chloride 98 Carbon Dioxide 32 Anion Gap 9 BUN 46 H Creatinine 1.1 H D Random Glucose 131 H Calcium 8.5 Magnesium 2.4 Active Medications 3 Generic Name Dose Route Start Last Admin Trade Name Freq PRN Reason Stop Dose Admin Acetaminophen 650 mg 03/11/16 10:54 03/17/16 05:10 Tylenol - PO 650 mg Q6H PRN Administration FEVER OR PAIN Acetylcysteine 1,000 mg 03/19/16 22:45 03/22/16 10:50 Mucomyst 20 Oral / Inh Use Only* NEB 1,000 mg BID JUAN Administration Albuterol Sulfate 1 amp 03/19/16 23:15 03/22/16 10:50 Ventolin 0.083% Nebulizer Soln - NEB 1 amp BID JUAN Administration Albuterol/Ipratropium 1 amp 03/20/16 15:15 03/21/16 06:30 Duoneb - NEB 1 amp Q6H PRN Administration PAIN Bacitracin 1 applic 03/16/16 15:45 03/22/16 12:04 Bacitracin - TP 1 applic DAILY JUAN Administration Colchicine 0.6 mg 03/10/16 22:00 03/22/16 11:37 Colcrys - PO 0.6 mg BID JUAN Administration Diphenhydramine HCl 25 mg 03/15/16 11:00 03/22/16 17:02 Benadryl Injection - IVPUSH 25 mg Q6H-IV JUAN Administration Docusate Sodium 100 mg 03/16/16 13:09 03/21/16 09:42 Colace - PO 100 mg TID PRN Administration CONSTIPATION Enoxaparin Sodium 30 mg 03/22/16 10:00 03/22/16 11:36 Lovenox - SQ 30 mg DAILY JUAN Administration Guaifenesin 5 ml 03/18/16 08:32 03/22/16 02:21 Diabetic Tussin Dm - PO 5 ml Q6H PRN Administration COUGH Metoprolol Tartrate 12.5 mg 03/20/16 22:00 03/22/16 11:35 Lopressor - PO 12.5 mg BID JUAN Administration Nystatin/Triamcinolone Acetonide 1 applic 03/16/16 12:45 03/22/16 12:06 Mycolog Ii Cream - TP Not Given BID [facility] Pantoprazole Sodium 40 mg 03/10/16 15:00 03/22/16 11:35 Protonix - PO 40 mg DAILY [facility] Administration Zinc Acetate/Diphenhydramine 1 applic 03/14/16 10:00 03/22/16 12:06 Benadryl 2% Cream TP Not Given BID [facility] CTA chest 03/20: Cardiomegaly, mild congestion and moderate bilateral pleural effusions largely developed since 03/09/16, small pericardial effusion decreased since th previous exam. CXR 03/22: NO significant change ECG 03/22 1802: Atrial fibrillation with RVR, rate 149, no acute EMIL, STD noted. ECG 03/22 1825: atrial fibrillation with RVR rate 129 ASSESSMENT/PLAN: 75yF with PMH Hypertension, MIx2, hx of multiple falls (most recent 03/05/16) who presented to the ED with decrease PO intake, lethargy, dizziness and was admitted for further evaluation and management of her emergent condition. Rapid atrial fibrillation with RVR- unknown if any PMH of same, ? new onset - Discussed with Dr. Arellano. - metoprolol 5mg given IVP with reduction in heart rate into 120s - metoprolol 12.5mg po now, then increase daily dose to 12.5mg TID - cardiology consult appreciated - labs and troponin ordered - AC deferred for now per Dr. Arellano, will reassess in AM. Failure to thrive - poor clinical progress - Still considering palliative care - Any further palliative conversations (if she chooses to go that route) would need to include Shayy [phone], a family friend who is also a nurse - She remains on 3-4L NC, appears chronically ill - lasix prn - poor PO intake, requires lots of encouragement. Automobile Damage Appraiser consult appreciated, calorie count in progress Moderate pericardial effusion s/p subxiphoid pericardial window - pericardial drain removed on 03/19 - AFB and fungal cultures pending, gram stain negative. Suspect viral etiology? acute systolic HF - CTA chest negative for PE - Hx of [place] x2 in the past - on b-oc, low dose KATHLEEN started 03/20--NOW DISCONTINUED DUE TO K =5.2 - echo with moderate to severe LVEF with inferior wall hypokinesis, cards following - lasix deferred as was not mobilizing fluids and was increasing hypotension as per Dr. Arellano Hyperkalemia - Potassium 5.3, now off KATHLEEN - low K diet - nephro following Pulm: Acute hypoxia - Stable and remains on O2 via NC prn (stable 3-4 L). Improved with oxygen - CTA with no evidence of PE - robitussin for cough, improved with lasix. Will need to dose PRN Oncology: RLE skin lesion - Imaging from [place] with lytic lesions throughout the calvarium and the cervical spine. 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 - Per daughter, does not want further intervention S/p mechanical fall with facial injuries - No acute fractures per records from [facility] - PT when medically stable. DVT Prophylaxis: - cont lovenox 30mg QD FEN - no IVF, pt with CHF - repeat BMP in am - poor po intake, cont to encourage Dispo: Transfer pt to telemetry. Visit type - Emergency Visit Emergency Visit: Yes ED Registration Date: 03/09/16 Care time: The patient presented to the Emergency Department on the above date and was hospitalized for further evaluation of their emergent condition. - New Patient This patient is new to me today: Yes Date on this admission: 03/22/16 - Critical Care Critical Care patient: Yes Total Critical Care Time (in minutes): 45 Critical Care Statement: The care of this patient involved high complexity decision making to prevent further life threatening deterioration of the patient 's condition and/or to evalute & treat vital organ system(s) failure or risk of failure.
[2016-03-22 20:55] LABS: BASOPHIL 0.2 % (0-2.0); EOSINOPHIL 1.8 % (0-4.5); MCH 30.5 pg (25.7-33.7); MCHC 31.9 g/dl (32.0-36.0); MEAN CELL VOLUME 95.5 fl (80-96); MEAN PLT VOLUME 10.7 fl (7.5-11.1); NEUTROPHILS 75.2 % (42.8-82.8); PLATELET COUNT 291 K/MM3 (134-434); RDW 17.4 % (11.6-15.6)
[2016-03-22 21:44] LABS: ALBUMIN 2.2 g/dl (3.4-5.0); ALK PHOS 157 U/L (45-117); ANION GAP 9 (8-16); BILIRUBIN,TOTAL 0.3 mg/dL (0.2-1.0); CALCIUM 8.7 mg/dL (8.5-10.1); CO2 29 mmol/L (21-32); CREATININE 1.1 mg/dL (0.55-1.02); GLUCOSE,RANDOM 202 mg/dL (74-106); MAGNESIUM 2.4 mg/dL (1.8-2.4); PHOSPHOROUS 3.3 mg/dL (2.5-4.9); SGOT/AST 25 U/L (15-37); SGPT/ALT 19 U/L (12-78); TOT PROT 6.2 g/dl (6.4-8.2); TROPONIN I < 0.02 ng/ml (0.00-0.05)
[2016-03-22] MEDS ORDERED: METOPROLOL TARTRATE 25 MG TABLET (FP) PO SCH (22:00)
[2016-03-23] MEDS ORDERED: METOPROLOL TARTRATE 25 MG TABLET (FP) PO ONE (03:15)
[2016-03-23] MEDS ORDERED: PT OWN MED DRAWER 7, Y5N ONE (03:34)
[2016-03-23] MEDS: ACETAMINOPHEN 325 MG TABLET (FP) PO PRN (05:00)
[2016-03-23] MEDS: METOPROLOL TARTRATE 25 MG TABLET (FP) PO SCH ×3 (06:25→22:44)
[2016-03-23 08:26] LABS: MCH 31.7 pg (25.7-33.7); MCHC 33.2 g/dl (32.0-36.0); MEAN CELL VOLUME 95.5 fl (80-96); MEAN PLT VOLUME 10.3 fl (7.5-11.1); PLATELET COUNT 258 K/MM3 (134-434); RDW 17.4 % (11.6-15.6); WHITE BLOOD COUNT 8.5 K/mm3 (4.0-10.0)
[2016-03-23 09:04] LABS: CALCIUM 8.3 mg/dL (8.5-10.1); CREATININE 0.9 mg/dL (0.55-1.02); MAGNESIUM 2.4 mg/dL (1.8-2.4); PHOSPHOROUS 2.9 mg/dL (2.5-4.9)
[2016-03-23 09:06] LABS: TROPONIN I 0.12 ng/ml (0.00-0.05)
[2016-03-23] MEDS: METOPROLOL TARTRATE 5 MG/5 ML VIAL IVPUSH PRN (09:36)
[2016-03-23] MEDS: PANTOPRAZOLE 40 MG TABLET (FP) PO SCH (09:36)
[2016-03-23] MEDS: ENOXAPARIN NA (PORCINE) 30 MG/0.3 ML DISP.SYRIN SQ SCH (09:36)
[2016-03-23] MEDS: COLCHICINE 0.6 MG TABLET (FP) PO SCH (09:36)
[2016-03-23] MEDS: BACITRACIN 30 GM TUBE TOPICAL OINTMENT TP SCH (09:37)
[2016-03-23] MEDS: NYSTATIN/TRIAMCINOLONE TOPICAL CREAM 15 GM TUBE TP SCH ×2 (09:37→22:44)
[2016-03-23] MEDS: ACETYLCYSTEINE 20% 200MG/ML 4 ML VIAL *FOR ORAL / INH USE ONLY NEB SCH ×2 (10:00→21:35)
[2016-03-23] MEDS: ALBUTEROL SO4 0.083% IH SOL 2.5 MG/3 ML VIAL.NEB. NEB SCH ×2 (10:00→21:35)
--- NOTE | 2016-03-23 10:49 | PN ---
Progress Note (short form) - Note Progress Note: PULMONARY CONFUSED TODAY LOW GRADE TEMPS ANICTERIC SCATTERED BIBASILAR BREATH SOUNDS S1S2 BS+ NO EDEMA LABS/MEDS/NOTES/IMAGING/MICRO REVIEWED Pericardial Effusion Early Cardiac Tamponade s/p Pericardial Window LV Systolic Dysfunction Hypoxia resolved HTN Dementia No neoplasm noted on cytology/bx - continue empiric colchicine, indomethacin - Diuretics as per primary team - monitor urine output, creatinine - incentive spirometry - DVT prophylaxis Joselito KIMBALL MD
--- NOTE | 2016-03-23 11:03 | PN ---
Progress Note (short form) - Note Progress Note: s: feels weak, no sob cp dizzy--family translating, overnight developed svt so transferred to [facility]; also febrile overnight o: Vital Signs Period Temp Pulse Resp BP Sys/Sanford Pulse Ox Last 24 Hr 97.7 F-102.3 F 70-148 18-20 88-119/53-84 98 Constitutional: Yes: No Distress, Calm Eyes: No: Sclera Icterus Cardiovascular: Yes: Regular Rate and Rhythm, no jvd, S1, S2,. No: Gallop, Murmur, Rub Respiratory: Yes: scattered rhonchi; No: Accessory Muscle Use, Rales, Wheezes Gastrointestinal: Yes: Normal Bowel Sounds, Soft. No: Tenderness Extremities: No: Cold Edema: No Integumentary: No: Jaundice diaphoresis Neurological: Yes: Alert. Psychiatric: No: Agitated Current Medications Generic Name Dose Route Start Last Admin Trade Name Freq PRN Reason Stop Dose Admin Acetaminophen 650 mg 03/11/16 10:54 03/23/16 05:00 Tylenol - PO 650 mg Q6H PRN Administration FEVER OR PAIN Acetylcysteine 1,000 mg 03/19/16 22:45 03/22/16 22:47 Mucomyst 20 Oral / Inh Use Only* NEB 1,000 mg BID JUAN Administration Albuterol Sulfate 1 amp 03/19/16 23:15 03/22/16 22:47 Ventolin 0.083% Nebulizer Soln - NEB 1 amp BID JUAN Administration Albuterol/Ipratropium 1 amp 03/20/16 15:15 03/21/16 06:30 Duoneb - NEB 1 amp Q6H PRN Administration PAIN Bacitracin 1 applic 03/16/16 15:45 03/23/16 09:37 Bacitracin - TP 1 applic DAILY JUAN Administration Diphenhydramine HCl 25 mg 03/15/16 11:00 03/23/16 09:36 Benadryl Injection - IVPUSH 25 mg Q6H-IV JUAN Administration Docusate Sodium 100 mg 03/16/16 13:09 03/21/16 09:42 Colace - PO 100 mg TID PRN Administration CONSTIPATION Enoxaparin Sodium 30 mg 03/22/16 10:00 03/23/16 09:36 Lovenox - SQ 30 mg DAILY JUAN Administration Guaifenesin 5 ml 03/18/16 08:32 03/22/16 02:21 Diabetic Tussin Dm - PO 5 ml Q6H PRN Administration COUGH Metoprolol Tartrate 25 mg 03/23/16 06:00 03/23/16 06:25 Lopressor - PO 25 mg TID JUAN Administration Metoprolol Tartrate 5 mg 03/23/16 09:00 03/23/16 09:36 Lopressor Injection - IVPUSH 5 mg Q4H PRN Administration TACHYCARDIA Nystatin/Triamcinolone Acetonide 1 applic 03/16/16 12:45 03/23/16 09:37 Mycolog Ii Cream - TP 1 applic BID JUAN Administration Pantoprazole Sodium 40 mg 03/10/16 15:00 03/23/16 09:36 Protonix - PO 40 mg DAILY JUAN Administration Zinc Acetate/Diphenhydramine 1 applic 03/14/16 10:00 03/23/16 09:37 Benadryl 2% Cream TP 1 applic BID UJAN Administration CBC, BMP 03/23/16 07:15 03/23/16 07:15 CTA: no PE. Increased interstitial markings and atelectasis at bases Echo 03/09/16/: mod-sev dec lvef, inf wall hk, nl rv, mild lae, mild mr/tr, moderate pericardial eff, ?impending tamponade based on ra wall collapse Repeat echo 03/12/16: mild con LVH. mod-sev depressed LV sys func (global), 1+ MR/TR, effusion unchanged, still with early diastolic RA collapse. repeat echo 03/21/16: sev dec lvef, nl rv, mild piotr, mild mr, mod-sev tr, rvsp 40-50, trivial pericardial eff, no signs tamponade tele: sr now, episodes of svt frequently (some brief, some sustained) a/p: 75 f (she is 83 according to family) with hx htn, h/o [place] x 2, dementia and possible recent diagnosis of cancer (unknown type), here with lethargy, weakness found to have systolic cardiomyopathy and pericardial effusion. pericardial effusion, possible acute pericarditis: -presented with moderate circumferential pericardial eff present but no signs of tamponade. clinically no signs of tamponade as well. -no obvious pericarditis, initially treated empirically with colchicine/ indomethacin but then renal fcn had worsened a little so they have been stopped -hemodynamically stable throughout, with no clinical tamponade -s/p pericardial window 03/16 (diagnostic as well) with 500 cc non-bloody fluid removed. pericardial fluid cultures, cytology pending. -repeat echo shows resolution of eff syst chf: -echo here shows mod-sev decreased lvef with inferior hypokinesis, patient with h/o prior MA--followed by doctors in [place] where she lives, per dtr (here visiting) -cont bb, bp too low for marian-i -no angina or other signs acs, ce's negx3, ecg w/o ischemic changes or significant q waves -03/12: clinically no definite chf, exam equiovocal for JVD--monitor closely with IVF. - 03/13: Now off IVF. CXR with new rt pleural effusion. No change in effusion size or hemodynamics with IVF. gentle diuresis as mentioned above. Strict I/O' s, daily weights. -03/14-: no signs chf on exam/cxr. cont to hold lasix and ivfs for now -will defer ? of need for ischemia eval to [facility] doctors (dtr states pt plans to return as soon as medically stable)--? LV dysfxn is chronic and stable -low dose BB trial as doing. ACEI trial (2.5 mg) given 03/19. -03/20: Bp trending down s/p lasix and lisinopril yesterday evening. will hold dose this morning. Consider resuming again tomorrow if bp remains stable. WBC rising and cough worsening. Would repeat chest CT. -03/21: still with some chf on imaging and pericardial effusion improved (small on ct chest) so will give iv lasix dose today to help with congestion. -03/22: still with some chf on cxr so agree with 40 iv lasix dose today to help with congestion. -03/23: prn lasix for now svt/PAT: -has had periodically during admit here but worse overnight. no obvious afib, cont to monitor on tele. -lopressor was increased from bid to tid, cont 25 tid for now and monitor response. uptitrate as needed for HR control -overnight also with fevers, ?infectious etiology driving HR up lethargy/weakness: -head ct w/o acute findings. likely 2/2 to aforementioned acute illnesses. htn: -bp remains stable here, cont bb. elevated trop: -trop this AM is borderline elevated with nl ck, no ischemic changes on ecgs. likely due to demand ischemia from svt overnight. cont to trend for now, no signs of acs presently
--- NOTE | 2016-03-23 11:44 | PN ---
Physical Exam: SUBJECTIVE: Patient seen and examined Patient continues to complain of weakness and fatigue OBJECTIVE: Patient with fever this morning (Tmax 102.3) with good response to tylenol. Has been afebrile this tour and vitals within acceptable limits. No sob cp dizzy TNi mildly elevated-d/w cardio (Dr Hedrick). In the absence of cardiac complaints the elevated enzymes likely 2/2 underlying infectious process Vital Signs Period Temp Pulse Resp BP Sys/Sanford Pulse Ox Last 24 Hr 97.7 F-102.3 F 70-148 18-20 88-119/53-84 91-98 GENERAL: The patient is awake, alert in no acute distress. EYES: PERRL, extraocular movements intact, conjunctiva clear. resolving facial ecchymoses ENT: Ears normal, nares patent, oropharynx clear without exudates, moist mucous membranes. NECK: Trachea midline, supple. LUNGS: Breath sounds equal, scattered rhonchi that clear with cough, diminished breath sound bibasilar HEART: Regular rate and rhythm, S1, S2 without murmur, rub or gallop. ABDOMEN: Soft, nontender, nondistended, normoactive bowel sounds, no guarding EXTREMITIES: 2+ pulses, warm, trace edema. NEUROLOGICAL: Cranial nerves II through XII grossly intact. Normal speech, gait not observed. PSYCH: Normal mood, normal affect. SKIN: Warm, dry, normal turgor Laboratory Results - last 24 hr 03/22/16 03/22/16 03/23/16 20:35 20:35 07:15 WBC 10.0 8.5 RBC 3.93 3.66 Hgb 12.0 11.6 Hct 37.5 35.0 MCV 95.5 95.5 MCHC 31.9 L 33.2 RDW 17.4 H 17.4 H Plt Count 291 D 258 MPV 10.7 10.3 Neutrophils % 75.2 72.0 Lymphocytes % 5.3 L D 6.0 L Monocytes % 17.5 H D 16.0 H Eosinophils % 1.8 D 3.0 Basophils % 0.2 Band Neutrophils 1.0 Myelocytes 2 Differential Comment Manual diff done Sodium 138 Potassium 4.6 Chloride 100 Carbon Dioxide 29 Anion Gap 9 BUN 56 H D Creatinine 1.1 H Creat Clearance w eGFR 48.16 Random Glucose 202 H D Calcium 8.7 Phosphorus 3.3 Magnesium 2.4 Total Bilirubin 0.3 D AST 25 D ALT 19 D Alkaline Phosphatase 157 H D Creatine Kinase 12 L Troponin I < 0.02 Total Protein 6.2 L Albumin 2.2 L 03/23/16 07:15 WBC RBC Hgb Hct MCV MCHC RDW Plt Count MPV Neutrophils % Lymphocytes % Monocytes % Eosinophils % Basophils % Band Neutrophils Myelocytes Differential Comment Sodium 137 Potassium 4.6 Chloride 102 Carbon Dioxide 29 Anion Gap 6 L BUN 49 H Creatinine 0.9 Creat Clearance w eGFR Random Glucose 161 H D Calcium 8.3 L Phosphorus 2.9 Magnesium 2.4 Total Bilirubin AST ALT Alkaline Phosphatase Creatine Kinase 32 Troponin I 0.12 H Total Protein Albumin Active Medications Generic Name Dose Route Start Last Admin Trade Name Freq PRN Reason Stop Dose Admin Acetaminophen 650 mg 03/11/16 10:54 03/23/16 05:00 Tylenol - PO 650 mg Q6H PRN Administration FEVER OR PAIN Acetylcysteine 1,000 mg 03/19/16 22:45 03/23/16 10:00 Mucomyst 20 Oral / Inh Use Only* NEB 1,000 mg BID JUAN Administration Albuterol Sulfate 1 amp 03/19/16 23:15 03/23/16 10:00 Ventolin 0.083% Nebulizer Soln - NEB 1 amp BID JUAN Administration Albuterol/Ipratropium 1 amp 03/20/16 15:15 03/21/16 06:30 Duoneb - NEB 1 amp Q6H PRN Administration PAIN Bacitracin 1 applic 03/16/16 15:45 03/23/16 09:37 Bacitracin - TP 1 applic DAILY JUAN Administration Diphenhydramine HCl 25 mg 03/15/16 11:00 03/23/16 09:36 Benadryl Injection - IVPUSH 25 mg Q6H-IV JUAN Administration Docusate Sodium 100 mg 03/16/16 13:09 03/21/16 09:42 Colace - PO 100 mg TID PRN Administration CONSTIPATION Enoxaparin Sodium 30 mg 03/22/16 10:00 03/23/16 09:36 Lovenox - SQ 30 mg DAILY JUAN Administration Guaifenesin 5 ml 03/18/16 08:32 03/22/16 02:21 Diabetic Tussin Dm - PO 5 ml Q6H PRN Administration COUGH Metoprolol Tartrate 25 mg 03/23/16 06:00 03/23/16 06:25 Lopressor - PO 25 mg TID JUAN Administration Metoprolol Tartrate 5 mg 03/23/16 09:00 03/23/16 09:36 Lopressor Injection - IVPUSH 5 mg Q4H PRN Administration TACHYCARDIA Nystatin/Triamcinolone Acetonide 1 applic 03/16/16 12:45 03/23/16 09:37 Mycolog Ii Cream - TP 1 applic BID JUAN Administration Pantoprazole Sodium 40 mg 03/10/16 15:00 03/23/16 09:36 Protonix - PO 40 mg DAILY JUAN Administration Zinc Acetate/Diphenhydramine 1 applic 03/14/16 10:00 03/23/16 09:37 Benadryl 2% Cream TP 1 applic BID JUAN Administration CTA chest 03/20: Cardiomegaly, mild congestion and moderate bilateral pleural effusions largely developed since 03/09/16, small pericardial effusion decreased since the previous exam. ASSESSMENT/PLAN: 75 y/o female with pmhx htn, h/o [place] x 2, dementia and RLE skin lesion presented to ER with decreased PO intake, lethargy and weakness. Admit for systolic cardiomyopathy and pericardial effusion. 1 Afib with RVR: HR now 90-110 -Continue with Tele monitoring - Tni uptrending from 0.12 to 0.28. Discussed with Cardio Dr. Arellano. In the absence of cardiac complaints the elevated enzymes likely 2/2 underlying infectious process bringing up heart rate. As long as patient is without cardiac complaints-per dr suresh no need to continue to trend enzymes. - Continue metoprolol 12.5 mg PO TID and metoprolol 5mg IVP Q 4 hr prn. - AC deferred for now. Cardio will f/u 2 Fever: currently afebrile and WBC -zosyn 3.375 g x 1 dose -Urine pending, repeat cxr and blood cultures pending. -ID consult ordered 2 Failure to thrive: - Family considering palliative care. Please include Shayy [phone], a family friend who is also a nurse in any palliative care conversation - Dietary on case, calorie count in progress. Recommend to continue Nepro & Ensure pudding at this time. Dietary Will f/u on 03/24 for Calorie count results. 3 Moderate pericardial effusion: - s/p pericardial window 03/16 with 500 cc non-bloody fluid removed. AFB and fungal cultures pending, gram stain negative -per cardio no signs of tamponade, of obvious pericarditis, which was initially treated empirically with colchicine/indomethacin but had to be stopped 2/2 worsening renal fctn 4 acute systolic HF: - CTA chest negative for PE - Continue with BB - Cardio on board and daily lasix deferred, will utilize prn dosing -- robitussin for cough -- Continues on NC prn 5 Hyperkalemia:resolved - Contiue with low K diet 6 Oncology: -Patient with RLE lesion that family reports as cancerous as well as a h/o lytic lesions throughout the valcarium and c-spine. -HCP does not want further intervention 7 S/p mechanical fall with facial injuries - No acute fractures per records from [facility] -Pain mgmt prn -Fall and safety precautions 8 DVT Prophylaxis: - cont lovenox 30mg QD 9 FEN - no IVF, pt with CHF - repeat CBC and CMP in am - encourage po intake Dispo: f/u calorie count, f/u labs, cardio f/u, lasix prn for worsening cough, Urine pending, repeat cxr and blood cultures pending. ID consult pending Problem List - Problems (1) Hypertension Code(s): I10 - ESSENTIAL (PRIMARY) HYPERTENSION (2) Hypoxia Code(s): R09.02 - HYPOXEMIA (3) Pericardial effusion Code(s): I31.3 - PERICARDIAL EFFUSION (NONINFLAMMATORY) (4) Skin cancer Code(s): C44.90 - UNSPECIFIED MALIGNANT NEOPLASM OF SKIN, UNSPECIFIED Visit type - Emergency Visit Emergency Visit: No - New Patient This patient is new to me today: Yes Date on this admission: 03/26/16 - Critical Care Critical Care patient: No
[2016-03-23] MEDS: guaiFENesin/D-M SUGAR-FREE/ACLHOL-FREE 118 ML BOTTLE PO PRN (12:32)
--- NOTE | 2016-03-23 16:11 | PN ---
Progress Note, Physician History of Present Illness: Pt seen and examined at bedside. She is out of bed to chair today. She still has weakness. - Current Medication List Current Medications: Active Medications Acetaminophen (Tylenol -) 650 mg PO Q6H PRN PRN Reason: FEVER OR PAIN Last Admin: 03/23/16 05:00 Dose: 650 mg Acetylcysteine (Mucomyst 20 Oral / Inh Use Only*) 1,000 mg NEB BID JUAN Last Admin: 03/23/16 10:00 Dose: 1,000 mg Albuterol Sulfate (Ventolin 0.083% Nebulizer Soln -) 1 amp NEB BID JUAN Last Admin: 03/23/16 10:00 Dose: 1 amp Albuterol/Ipratropium (Duoneb -) 1 amp NEB Q6H PRN PRN Reason: PAIN Last Admin: 03/21/16 06:30 Dose: 1 amp Bacitracin (Bacitracin -) 1 applic TP DAILY JUAN Last Admin: 03/23/16 09:37 Dose: 1 applic Diphenhydramine HCl (Benadryl Injection -) 25 mg IVPUSH Q6H-IV JUAN Last Admin: 03/23/16 15:39 Dose: Not Given Docusate Sodium (Colace -) 100 mg PO TID PRN PRN Reason: CONSTIPATION Last Admin: 03/21/16 09:42 Dose: 100 mg Enoxaparin Sodium (Lovenox -) 30 mg SQ DAILY JUAN Last Admin: 03/23/16 09:36 Dose: 30 mg Guaifenesin (Diabetic Tussin Dm -) 5 ml PO Q6H PRN PRN Reason: COUGH Last Admin: 03/23/16 12:32 Dose: 5 ml Metoprolol Tartrate (Lopressor -) 25 mg PO TID JUAN Last Admin: 03/23/16 14:38 Dose: 25 mg Metoprolol Tartrate (Lopressor Injection -) 5 mg IVPUSH Q4H PRN PRN Reason: TACHYCARDIA Last Admin: 03/23/16 09:36 Dose: 5 mg Nystatin/Triamcinolone Acetonide (Mycolog Ii Cream -) 1 applic TP BID JUAN Last Admin: 03/23/16 09:37 Dose: 1 applic Pantoprazole Sodium (Protonix -) 40 mg PO DAILY JUAN Last Admin: 03/23/16 09:36 Dose: 40 mg Zinc Acetate/Diphenhydramine (Benadryl 2% Cream) 1 applic TP BID JUAN Last Admin: 03/23/16 09:37 Dose: 1 applic - Objective Vital Signs: Vital Signs Temperature 100 F H 03/23/16 14:30 Pulse Rate 98 H 03/23/16 14:30 Respiratory Rate 18 03/23/16 14:30 Blood Pressure 124/55 03/23/16 14:30 O2 Sat by Pulse Oximetry (%) 91 L 03/23/16 11:29 Constitutional: Yes: Calm Eyes: Yes: Conjunctiva Clear Neck: Yes: Supple Cardiovascular: Yes: S1, S2 Respiratory: Yes: On Nasal O2 Gastrointestinal: Yes: Normal Bowel Sounds, Soft Genitourinary: Yes: WNL Musculoskeletal: Yes: Muscle Weakness Edema: No Labs: CBC, BMP 03/23/16 07:15 03/23/16 07:15 INR, PTT INR 1.16 (0.82-1.09) H 03/15/16 05:20 Problem List - Problems (1) Hypoxia Code(s): R09.02 - HYPOXEMIA (2) Lethargy Code(s): R53.83 - OTHER FATIGUE (3) Pericardial effusion Code(s): I31.3 - PERICARDIAL EFFUSION (NONINFLAMMATORY) (4) Proteinuria Code(s): R80.9 - PROTEINURIA, UNSPECIFIED (5) Hypertension Code(s): I10 - ESSENTIAL (PRIMARY) HYPERTENSION (6) Skin cancer Code(s): C44.90 - UNSPECIFIED MALIGNANT NEOPLASM OF SKIN, UNSPECIFIED Assessment/Plan Current Medications Generic Name Dose Route Start Last Admin Trade Name Leo PRN Reason Stop Dose Admin Acetaminophen 650 mg 03/11/16 10:54 03/23/16 05:00 Tylenol - PO 650 mg Q6H PRN Administration FEVER OR PAIN Acetylcysteine 1,000 mg 03/19/16 22:45 03/23/16 10:00 Mucomyst 20 Oral / Inh Use Only* NEB 1,000 mg BID JUAN Administration Albuterol Sulfate 1 amp 03/19/16 23:15 03/23/16 10:00 Ventolin 0.083% Nebulizer Soln - NEB 1 amp BID JUAN Administration Albuterol/Ipratropium 1 amp 03/20/16 15:15 03/21/16 06:30 Duoneb - NEB 1 amp Q6H PRN Administration PAIN Bacitracin 1 applic 03/16/16 15:45 03/23/16 09:37 Bacitracin - TP 1 applic DAILY JUAN Administration Diphenhydramine HCl 25 mg 03/15/16 11:00 03/23/16 15:39 Benadryl Injection - IVPUSH Not Given Q6H-IV JUAN Docusate Sodium 100 mg 03/16/16 13:09 03/21/16 09:42 Colace - PO 100 mg TID PRN Administration CONSTIPATION Enoxaparin Sodium 30 mg 03/22/16 10:00 03/23/16 09:36 Lovenox - SQ 30 mg DAILY JUAN Administration Guaifenesin 5 ml 03/18/16 08:32 03/23/16 12:32 Diabetic Tussin Dm - PO 5 ml Q6H PRN Administration COUGH Metoprolol Tartrate 25 mg 03/23/16 06:00 03/23/16 14:38 Lopressor - PO 25 mg TID JUAN Administration Metoprolol Tartrate 5 mg 03/23/16 09:00 03/23/16 09:36 Lopressor Injection - IVPUSH 5 mg Q4H PRN Administration TACHYCARDIA Nystatin/Triamcinolone Acetonide 1 applic 03/16/16 12:45 03/23/16 09:37 Mycolog Ii Cream - TP 1 applic BID JUAN Administration Pantoprazole Sodium 40 mg 03/10/16 15:00 03/23/16 09:36 Protonix - PO 40 mg DAILY JUAN Administration Zinc Acetate/Diphenhydramine 1 applic 03/14/16 10:00 03/23/16 09:37 Benadryl 2% Cream TP 1 applic BID JUAN Administration Impression 1. pericardial effusion 2. hypoxia 3. proteinuria 4. HTN 5. skin cancer 6. congestion on cxr 7. s/p fall and laceration to head 8. hyperkalemia 9. azotemia Plan - renal function is improved - nsaids stopped - lasix PRN - follow up cardiac enzymes - discussed plan with pts daughter - will follow PRN Dr Ruth
[2016-03-23 16:13] LABS: TROPONIN I 0.28 ng/ml (0.00-0.05)
[2016-03-23] MEDS ORDERED: PIPERACILLIN/TAZOB 3.375 GM 50 ML IVPB ONE (18:38)
[2016-03-23] MEDS: guaiFENesin 200 MG/10 ML 10 ML UNIT-DOSE CUPS PO SCH (22:44)
[2016-03-24] MEDS: PIPERACILLIN/TAZOB 3.375 GM 50 ML IVPB SCH ×3 (02:55→17:03)
[2016-03-24] MEDS: METOPROLOL TARTRATE 25 MG TABLET (FP) PO SCH ×3 (05:22→21:02)
[2016-03-24 08:21] LABS: MCHC 32.5 g/dl (32.0-36.0); MEAN CELL VOLUME 95.4 fl (80-96); MEAN PLT VOLUME 10.6 fl (7.5-11.1); PLATELET COUNT 309 K/MM3 (134-434); WHITE BLOOD COUNT 11.3 K/mm3 (4.0-10.0)
[2016-03-24 08:23] LABS: ALBUMIN 2.2 g/dl (3.4-5.0); ANION GAP 7 (8-16); BILIRUBIN,TOTAL 0.5 mg/dL (0.2-1.0); CALCIUM 8.2 mg/dL (8.5-10.1); CO2 30 mmol/L (21-32); CREATININE 0.7 mg/dL (0.55-1.02); GLUCOSE,RANDOM 135 mg/dL (74-106); SGOT/AST 17 U/L (15-37); SGPT/ALT 19 U/L (12-78); TOT PROT 6.1 g/dl (6.4-8.2)
[2016-03-24 08:26] LABS: ALK PHOS 122 U/L (45-117); TROPONIN I 0.14 ng/ml (0.00-0.05)
[2016-03-24] MEDS: PANTOPRAZOLE 40 MG TABLET (FP) PO SCH (10:17)
[2016-03-24] MEDS: ENOXAPARIN NA (PORCINE) 30 MG/0.3 ML DISP.SYRIN SQ SCH (10:19)
[2016-03-24] MEDS: BACITRACIN 30 GM TUBE TOPICAL OINTMENT TP SCH (10:19)
[2016-03-24] MEDS: NYSTATIN/TRIAMCINOLONE TOPICAL CREAM 15 GM TUBE TP SCH ×2 (10:20→21:02)
[2016-03-24] MEDS: guaiFENesin/D-M SUGAR-FREE/ACLHOL-FREE 118 ML BOTTLE PO PRN (10:37)
[2016-03-24] MEDS: ACETYLCYSTEINE 20% 200MG/ML 4 ML VIAL *FOR ORAL / INH USE ONLY NEB SCH ×2 (10:42→21:40)
[2016-03-24] MEDS: ALBUTEROL SO4 0.083% IH SOL 2.5 MG/3 ML VIAL.NEB. NEB SCH ×2 (10:43→21:40)
[2016-03-24 10:57] LABS: ANISOCYTOSIS 1+; HYPOCHROMIA 1+; PLATELET COMMENT2 NO CLOTTING DETECTED; PLATELET ESTIMATE ADEQUATE (NORMAL); TOXIC GRANULATION 1+
--- NOTE | 2016-03-24 12:49 | PN ---
Progress Note (short form) - Note Progress Note: CC: pericardial effusion s: Progressive weakness. Significant diffuse abdominal pain worse today. Oral pain. + nausea, unable to eat. + cough persists. no sob cp dizzy--family translating, o: Current Medications Acetaminophen (Tylenol -) 650 mg PO Q6H PRN PRN Reason: FEVER OR PAIN Last Admin: 03/23/16 05:00 Dose: 650 mg Acetylcysteine (Mucomyst 20 Oral / Inh Use Only*) 1,000 mg NEB BID JUAN Last Admin: 03/24/16 10:42 Dose: 1,000 mg Albuterol Sulfate (Ventolin 0.083% Nebulizer Soln -) 1 amp NEB BID JUAN Last Admin: 03/24/16 10:43 Dose: 1 amp Albuterol/Ipratropium (Duoneb -) 1 amp NEB Q6H PRN PRN Reason: PAIN Last Admin: 03/21/16 06:30 Dose: 1 amp Bacitracin (Bacitracin -) 1 applic TP DAILY JUAN Last Admin: 03/24/16 10:19 Dose: 1 applic Diphenhydramine HCl (Benadryl Injection -) 25 mg IVPUSH Q6H-IV JUAN Last Admin: 03/24/16 10:18 Dose: 25 mg Docusate Sodium (Colace -) 100 mg PO TID PRN PRN Reason: CONSTIPATION Last Admin: 03/21/16 09:42 Dose: 100 mg Enoxaparin Sodium (Lovenox -) 30 mg SQ DAILY JUAN Last Admin: 03/24/16 10:19 Dose: 30 mg Guaifenesin (Diabetic Tussin Dm -) 5 ml PO Q6H PRN PRN Reason: COUGH Last Admin: 03/24/16 10:37 Dose: 5 ml Guaifenesin (Robitussin -) 10 ml PO HS JUAN Last Admin: 03/23/16 22:44 Dose: 10 ml Piperacillin Sod/Tazobactam Sod (Zosyn 3.375gm Ivpb (Pre-Docked)) 50 mls @ 100 mls/hr IVPB Q8H-IV JUAN Last Admin: 03/24/16 10:18 Dose: 100 mls/hr Metoprolol Tartrate (Lopressor -) 25 mg PO TID JUAN Last Admin: 03/24/16 05:22 Dose: 25 mg Metoprolol Tartrate (Lopressor Injection -) 5 mg IVPUSH Q4H PRN PRN Reason: TACHYCARDIA Last Admin: 03/23/16 09:36 Dose: 5 mg Nystatin/Triamcinolone Acetonide (Mycolog Ii Cream -) 1 applic TP BID [facility] Last Admin: 03/24/16 10:20 Dose: 1 applic Pantoprazole Sodium (Protonix -) 40 mg PO DAILY [facility] Last Admin: 03/24/16 10:17 Dose: 40 mg Zinc Acetate/Diphenhydramine (Benadryl 2% Cream) 1 applic TP BID [facility] Last Admin: 03/24/16 10:19 Dose: 1 applic Vital Signs - 24 hr 03/23/16 03/23/16 03/24/16 14:30 18:00 02:00 Temperature 100 F H 97.9 F 98.1 F Pulse Rate 98 H 91 H 104 H Respiratory 18 18 18 Rate Blood Pressure 124/55 110/66 112/72 O2 Sat by Pulse Oximetry (%) 03/24/16 03/24/16 03/24/16 06:00 10:11 10:42 Temperature 98.3 F 98.7 F Pulse Rate 101 H 96 H 91 H Respiratory 16 18 Rate Blood Pressure 122/66 117/55 O2 Sat by Pulse 98 Oximetry (%) Intake & Output 03/22/16 03/23/16 03/24/16 03/25/16 07:59 07:59 07:59 07:59 Intake Total 400 150 300 Balance 400 150 300 Weight 113 lb 7 oz 111 lb 2 oz Constitutional: Yes: No Distress, Calm Eyes: No: Sclera Icterus Cardiovascular: Yes: Tachycardic, regular. and Rhythm, + jvd vs prominent v wave, nl S1, S2,. No: Gallop, Murmur, Rub Respiratory: Yes: scattered rhonchi; No: Accessory Muscle Use, Rales, Wheezes Gastrointestinal: Yes: Normal Bowel Sounds, Soft. + tenderness Extremities: No: Cold Edema: No Integumentary: No: Jaundice diaphoresis Neurological: Yes: Alert. Psychiatric: No: Agitated CBC, BMP 03/24/16 06:00 03/24/16 06:00 Laboratory Tests 03/23/16 03/24/16 03/24/16 15:00 06:00 06:00 Band Neutrophils 5.0 D Troponin I 0.28 H 0.14 H Albumin 2.2 L CTA: no PE. Increased interstitial markings and atelectasis at bases Echo 03/09/16 : mod-sev dec lvef, inf wall hk, nl rv, mild lae, mild mr/tr, moderate pericardial eff, ?impending tamponade based on ra wall collapse Repeat echo 03/12/16: mild con LVH. mod-sev depressed LV sys func (global), 1+ MR/TR, effusion unchanged, still with early diastolic RA collapse. repeat echo 03/21/16: sev dec lvef, nl rv, mild piotr, mild mr, mod-sev tr, rvsp 40-50, trivial pericardial eff, no signs tamponade tele: sr now, occ pvc's, trigeminy. a/p: 75 f (she is 83 according to family) with hx htn, h/o [place] x 2, dementia and possible recent diagnosis of cancer (unknown type), here with lethargy, weakness found to have systolic cardiomyopathy and pericardial effusion. pericardial effusion, possible acute pericarditis: -presented with moderate circumferential pericardial eff present but no signs of tamponade. clinically no signs of tamponade as well. -no obvious pericarditis, initially treated empirically with colchicine/ indomethacin but then renal fcn had worsened a little so they have been stopped -hemodynamically stable throughout, with no clinical tamponade -s/p pericardial window 03/16 (diagnostic as well) with 500 cc non-bloody fluid removed. pericardial fluid cultures, cytology pending. -repeat echo shows resolution of eff syst chf: -echo here shows mod-sev decreased lvef with inferior hypokinesis, patient with h/o prior [place]--followed by doctors in [place] where she lives, per dtr (here visiting) -cont bb, bp too low for marian-i -no angina or other signs acs, ce's negx3, ecg w/o ischemic changes or significant q waves -03/12: clinically no definite chf, exam equiovocal for JVD--monitor closely with IVF. - 03/13: Now off IVF. CXR with new rt pleural effusion. No change in effusion size or hemodynamics with IVF. gentle diuresis as mentioned above. Strict I/O' s, daily weights. -03/14-: no signs chf on exam/cxr. cont to hold lasix and ivfs for now -will defer ? of need for ischemia eval to [facility] (dtr states pt plans to return as soon as medically stable)--? LV dysfxn is chronic and stable -low dose BB trial as doing. ACEI trial (2.5 mg) given 03/19 but dropped blood pressures. -03/20: Bp trending down s/p lasix and lisinopril yesterday evening. will hold dose this morning. Consider resuming again tomorrow if bp remains stable. WBC rising and cough worsening. Would repeat chest CT. -03/21: still with some chf on imaging and pericardial effusion improved (small on ct chest) so will give iv lasix dose today to help with congestion. -03/22: still with some chf on cxr so agree with 40 iv lasix dose today to help with congestion. -03/23-03/24: developing signs of infection, poor po intake. Holding diuretics. Started on maintenance fluids today 03/24. Continue daily weights. svt/PAT: -has had periodically during admit here but worse overnight. no obvious afib, cont to monitor on tele. -lopressor was increased from bid to tid, cont 25 tid for now - ?infectious etiology driving HR up. Patient with significant oral pain and abdominal pain. Consider further evaluation of abdomen with CT. ID consulted. lethargy/weakness: -head ct w/o acute findings. likely 2/2 to aforementioned acute illnesses. htn: -bp remains stable here, cont bb. elevated trop: -trop borderline elevated (peak 0.28) the day after episode of prolonged SVT/ fever. Nl ck, no ischemic changes on ecgs. likely due to demand ischemia from svt overnight in setting of known CAD. Troponin now trending down. No signs of acs presently
[2016-03-24] MEDS ORDERED: DEXTROSE 5%-0.45% SALINE 1,000 ML IV SCH (13:00)
--- NOTE | 2016-03-24 13:01 | PN ---
Progress Note (short form) - Note Progress Note: PULMONARY RESTLESS/ LOW GRADE TEMPS ANICTERIC SCATTERED BIBASILAR BREATH SOUNDS S1S2 BS+ NO EDEMA LABS/MEDS/NOTES/IMAGING/MICRO REVIEWED Pericardial Effusion Early Cardiac Tamponade s/p Pericardial Window LV Systolic Dysfunction Hypoxia resolved HTN Dementia No neoplasm noted on cytology/bx - IV fluid support - monitor urine output, creatinine - incentive spirometry - DVT prophylaxis - Supportive measures Joselito KIMBALL MD
--- NOTE | 2016-03-24 13:57 | EKG ---
Test Reason : Blood Pressure : / mmHG Vent. Rate : 094 BPM Atrial Rate : 094 BPM P-R Int : 148 ms QRS Dur : 088 ms QT Int : 344 ms P-R-T Axes : 048 014 -18 degrees QTc Int : 430 ms SINUS RHYTHM WITH OCCASIONAL PREMATURE VENTRICULAR COMPLEXES INFERIOR INFARCT (CITED ON OR BEFORE 20-MAR-2016) ABNORMAL ECG WHEN COMPARED WITH ECG OF 22-MAR-2016 18:25, SINUS RHYTHM HAS REPLACED ATRIAL FIBRILLATION Confirmed by MD PIPPA, SRAVANTHI ([id number]) on 03/24/2016 1:57:16 PM Referred By: Oscar ROBLES Overread By: SRAVANTHI DAS MD
--- NOTE | 2016-03-24 16:01 | CONSULT ---
Consult Consult Specialty:: infectious disease Reason for Consultation:: fevers,abd pain - History of Present Illness Chief Complaint: scratching and abd pain History of Present Illness: patient cannot speak lao.daughter in the room who gave me the history. patient has been admitted in the hospital for quite some time . according to the daughter the patient had flu 3 weeks abck which she was treated for ,patient has been in the hospital with multiple problems. patients admission history can be looked up from previous notes currently patient is febrile and is having cough she also is itching a lot and has quite diffuse abd pain more on the right than the left lot of scratch edmond noted on the abdomen. patient looks in quite a bit of discomfort initial admission for chest pain - History Source History Provided By: Family Member Limitations to Obtaining History: Language Barrier - Past Medical History Cardio/Vascular: Yes: HTN, IA ...: No - Past Surgical History Past Surgical History: Yes: None (unknown patient does not understand lao ) - Alcohol/Substance Use Hx Alcohol Use: No - Smoking History Smoking history: Never smoked Have you smoked in the past 12 months: No Aproximately how many cigarettes per day: 0 - Social History Usual Living Arrangement: With Child ADL: Family Assistance History of Recent Travel: Yes (Arrived from [place] by flight) Home Medications - Allergies Allergies/Adverse Reactions: Allergies Allergy/AdvReac Type Severity Reaction Status Date / Time milk Allergy Verified 03/23/16 03:17 Milk Containing Products AdvReac Verified 03/09/16 16:16 tape AdvReac Rash Uncoded 03/15/16 10:44 - Home Medications Home Medications: Ambulatory Orders Amlodipine Besylate [Norvasc -] 5 mg PO DAILY 03/09/16 Review of Systems - Review of Systems Constitutional: reports: Fever Eyes: reports: No Symptoms HENT: reports: No Symptoms Neck: reports: No Symptoms Cardiovascular: reports: No Symptoms Respiratory: reports: Cough, SOB Gastrointestinal: reports: Abdominal Pain, Other Genitourinary: reports: No Symptoms Musculoskeletal: reports: No Symptoms Integumentary: reports: No Symptoms Neurological: reports: No Symptoms Endocrine: reports: No Symptoms Hematology/Lymphatic: reports: No Symptoms Psychiatric: reports: No Symptoms Physical Exam Vital Signs: Vital Signs Temperature 97.7 F 03/24/16 14:00 Pulse Rate 100 H 03/24/16 14:00 Respiratory Rate 20 03/24/16 14:00 Blood Pressure 128/55 12/31/16 14:00 O2 Sat by Pulse Oximetry (%) 98 03/24/16 10:42 Constitutional: Yes: Anxious, Mild Distress Eyes: Yes: Conjunctiva Clear Cardiovascular: Yes: Regular Rate and Rhythm Respiratory: Yes: Poor Air Entry, Other (crackles,decreased air entry on the lower lobes) Gastrointestinal: Yes: Normal Bowel Sounds, Soft, Tenderness (mainly in the right side). No: Tenderness, Rebound Musculoskeletal: Yes: WNL Extremities: Yes: WNL Integumentary: Yes: Bruising, Other (scratches and redness of the skin from scratching) Neurological: Yes: Alert, Oriented Psychiatric: Yes: Alert Labs: CBC, BMP 03/24/16 06:00 03/24/16 06:00 Imaging - Results Chest X-ray: Report Reviewed, Image Reviewed Cat Scan: Report Reviewed, Image Reviewed Assessment/Plan after evaluating the patient there are couple of things i am worried about one is is the patient having superimposed infection in the lungs though xray does not show any changes there might be some intra abd process Problem List - Problems (1) Hypoxia Code(s): R09.02 - HYPOXEMIA (2) Lethargy Code(s): R53.83 - OTHER FATIGUE (3) Pericardial effusion Code(s): I31.3 - PERICARDIAL EFFUSION (NONINFLAMMATORY) (4) Proteinuria Code(s): R80.9 - PROTEINURIA, UNSPECIFIED (5) Hypertension Code(s): I10 - ESSENTIAL (PRIMARY) HYPERTENSION (6) Skin cancer Code(s): C44.90 - UNSPECIFIED MALIGNANT NEOPLASM OF SKIN, UNSPECIFIED abd pain cough plan continue zosyn for time being i would suggest ct of the abd monitor for fevers monitor wbc
--- NOTE | 2016-03-24 17:18 | PN ---
Physical Exam: SUBJECTIVE: Patient seen and examined. Lethargic. OBJECTIVE: Vital Signs Period Temp Pulse Resp BP Sys/[facility] Pulse Ox Last 24 Hr 97.7 F-98.7 F 91-104 16-20 110-128/55-72 96-98 GENERAL: The patient is awake but lethargic. Combative with medical interventions. HEAD: Resolving periorbital and facial ecchymoses EYES: PERRL, sclera anicteric, conjunctiva clear. No ptosis. LUNGS: Bibasilar crackles; weak inspiratory effort HEART: Regular rate and rhythm, S1, S2 ABDOMEN: RUQ and RLQ tenderness EXTREMITIES: 2+ pulses, warm, well-perfused, no edema. 4cm tumorous growth RLE. NEUROLOGICAL: Cranial nerves II through XII grossly intact. Laboratory Results - last 24 hr 03/24/16 03/24/16 06:00 06:00 WBC 11.3 H D RBC 3.54 L Hgb 11.0 Hct 33.7 MCV 95.4 MCHC 32.5 RDW 18.0 H Plt Count 309 MPV 10.6 Neutrophils % 80.0 Lymphocytes % 6.0 L Monocytes % 7.0 Eosinophils % 2.0 Band Neutrophils 5.0 D Toxic Granulation 1+ Platelet Estimate Adequate Platelet Comment No clotting detected Hypochromic-Microcytic 1+ Anisocytosis 1+ Sodium 140 Potassium 4.9 Chloride 103 Carbon Dioxide 30 Anion Gap 7 L BUN 33 H D Creatinine 0.7 D Creat Clearance w eGFR > 60 Random Glucose 135 H Calcium 8.2 L Total Bilirubin 0.5 D AST 17 D ALT 19 Alkaline Phosphatase 122 H D Troponin I 0.14 H Total Protein 6.1 L Albumin 2.2 L Active Medications Generic Name Dose Route Start Last Admin Trade Name Ruyq PRN Reason Stop Dose Admin Acetaminophen 650 mg 03/11/16 10:54 03/23/16 05:00 Tylenol - PO 650 mg Q6H PRN Administration FEVER OR PAIN Acetylcysteine 1,000 mg 03/19/16 22:45 03/24/16 10:42 Mucomyst 20 Oral / Inh Use Only* NEB 1,000 mg BID JUAN Administration Albuterol Sulfate 1 amp 03/19/16 23:15 03/24/16 10:43 Ventolin 0.083% Nebulizer Soln - NEB 1 amp BID JUAN Administration Albuterol/Ipratropium 1 amp 03/20/16 15:15 03/21/16 06:30 Duoneb - NEB 1 amp Q6H PRN Administration PAIN Bacitracin 1 applic 03/16/16 15:45 03/24/16 10:19 Bacitracin - TP 1 applic DAILY JUAN Administration Diphenhydramine HCl 25 mg 03/15/16 11:00 03/24/16 14:08 Benadryl Injection - IVPUSH 25 mg Q6H-IV JUAN Administration Docusate Sodium 100 mg 03/16/16 13:09 03/21/16 09:42 Colace - PO 100 mg TID PRN Administration CONSTIPATION Enoxaparin Sodium 30 mg 03/22/16 10:00 03/24/16 10:19 Lovenox - SQ 30 mg DAILY JUAN Administration Guaifenesin 5 ml 03/18/16 08:32 03/24/16 10:37 Diabetic Tussin Dm - PO 5 ml Q6H PRN Administration COUGH Guaifenesin 10 ml 03/23/16 22:00 03/23/16 22:44 Robitussin - PO 10 ml HS JUAN Administration Piperacillin Sod/Tazobactam Sod 50 mls @ 100 mls/hr 03/24/16 02:00 03/24/16 17: 03 Zosyn 3.375gm Ivpb (Pre-Docked) IVPB 100 mls/hr Q8H-IV JUAN Administration Dextrose/Sodium Chloride 1,000 mls @ 60 mls/hr 03/24/16 13:00 03/24/16 13:46 D5-1/2ns - IV 60 mls/hr ASDIR JUAN Administration Metoprolol Tartrate 25 mg 03/23/16 06:00 03/24/16 14:07 Lopressor - PO 25 mg TID JUAN Administration Metoprolol Tartrate 5 mg 03/23/16 09:00 03/23/16 09:36 Lopressor Injection - IVPUSH 5 mg Q4H PRN Administration TACHYCARDIA Nystatin/Triamcinolone Acetonide 1 applic 03/16/16 12:45 03/24/16 10:20 Mycolog Ii Cream - TP 1 applic BID JUAN Administration Pantoprazole Sodium 40 mg 03/10/16 15:00 03/24/16 10:17 Protonix - PO 40 mg DAILY JUAN Administration Zinc Acetate/Diphenhydramine 1 applic 03/14/16 10:00 03/24/16 10:19 Benadryl 2% Cream TP 1 applic BID JUAN Administration ASSESSMENT/PLAN: ASSESSMENT/PLAN: This is hospital day #15, POD #9 for this 75 year-old female with PMH of HTN, [place] x2, pericardial effusion s/p pericardial window on 03/15. Prolonged hopsital course. Spiking fevers for past 36 hours. Moderate pericardial effusion Severe sytolic heart failure --s/p pericardial window 03/15, today is POD #9; fungal culture pending, cytology pending --CT chest today shows moderate pericardial effusion; echo on 03/21 had shown only trivial pericardial effusion, will get repeat echo --CT also shows moderate bilateral pleural effusions Severe sepsis Pneumonia --fever to 102.3, WBC on 03/20 was 13.7, now 11.3, tachycardic today to 104; altered mental status, agitated, combative --CT chest shows consolidation in bilateral lower lobes, lingula, and RML --BP remains stable; started gentle IV fluids today --panculture --lactic acid pending --ABG ordered --start empiric Zosyn --ID following Cholelithiasis --gallbladder "packed" with stones on [facility] read of CT --RLQ and RUQ tenderness --possibly cholecystitis --US gallbladder ordered Elevated troponins --03/23 0.12-->0.28-->0.14 --likely secondary to infectious process/demand ischemia Soft tissue facial injuries s/p mechanical fall, resolving r/o malignancy --imaging from [facility] showed lytic lesions throughout the calvarium and the cervical spine; also with tumorous growth on RLE --no further workup per HCP F/E/N Fluids: PO intake adequate Electrolyes: replete as indicated Nutrition: low sodium DVT prophylaxis: lovenox Dispo: Family considering palliative care. Please include [facility] [phone], a family friend who is also a nurse in any palliative care conversation. Continues to require inpatient care. Full Code. Visit type - Emergency Visit Emergency Visit: Yes ED Registration Date: 03/09/16 Care time: The patient presented to the Emergency Department on the above date and was hospitalized for further evaluation of their emergent condition. - New Patient This patient is new to me today: No - Critical Care Critical Care patient: Yes Total Critical Care Time (in minutes): 85 Critical Care Statement: The care of this patient involved high complexity decision making to prevent further life threatening deterioration of the patient 's condition and/or to evalute & treat vital organ system(s) failure or risk of failure.
[2016-03-24] MEDS: ACETAMINOPHEN 325 MG TABLET (FP) PO PRN (17:34)
[2016-03-24] MEDS: guaiFENesin 200 MG/10 ML 10 ML UNIT-DOSE CUPS PO SCH (21:02)
[2016-03-24 23:34] LABS: ARTERIAL BLOOD GAS BASE EXCESS 4.6 meq/l (-2-2); ARTERIAL BLOOD GAS HCO3 28.8 meq/L (22-26); ARTERIAL BLOOD GAS pH 7.44 (7.35-7.45)
[2016-03-24 23:35] LABS: ALLENS TEST POSITIVE; ART PUNCT SITE RIGHT BRACHIAL; LPM/O2% 3LPM; PT. ON O2? YES; TYPE OF O2 N/C
[2016-03-24 23:36] LABS: ARTERIAL BLOOD GAS PO2 87.4 mmHg (70-100)
[2016-03-25 00:22] LABS: URINE APPEARANCE CLEAR; URINE BILIRUBIN NEGATIVE (NEGATIVE); URINE BLOOD NEGATIVE (NEGATIVE); URINE COLOR YELLOW; URINE GLUCOSE (UA) NEGATIVE (NEGATIVE); URINE KETONE NEGATIVE (NEGATIVE); URINE LEUK ESTERASE NEGATIVE (NEGATIVE); URINE NITRITE NEGATIVE (NEGATIVE); URINE PROTEIN NEGATIVE (NEGATIVE); URINE UROBILINOGEN NEGATIVE E.U./dl (0.2-1.0)
[2016-03-25] MEDS: SODIUM CHLORIDE 1,000 ML IV SCH (03:14)
[2016-03-25] MEDS: PIPERACILLIN/TAZOB 3.375 GM 50 ML IVPB SCH ×3 (03:19→18:42)
[2016-03-25] MEDS: METOPROLOL TARTRATE 25 MG TABLET (FP) PO SCH ×3 (06:49→22:03)
[2016-03-25 07:22] LABS: MCH 31.4 pg (25.7-33.7); MCHC 32.9 g/dl (32.0-36.0); MEAN CELL VOLUME 95.4 fl (80-96); MEAN PLT VOLUME 10.3 fl (7.5-11.1); PLATELET COUNT 278 K/MM3 (134-434); RDW 17.4 % (11.6-15.6)
[2016-03-25 07:39] LABS: ALBUMIN 1.9 g/dl (3.4-5.0)
[2016-03-25 07:42] LABS: BILIRUBIN,DIRECT 0.2 mg/dL (0.0-0.2); BILIRUBIN,TOTAL 0.4 mg/dL (0.2-1.0); TOT PROT 5.6 g/dl (6.4-8.2)
[2016-03-25 07:53] LABS: ALK PHOS 97 U/L (45-117); ANION GAP 6 (8-16); BILIRUBIN,TOTAL 0.6 mg/dL (0.2-1.0); CALCIUM 7.8 mg/dL (8.5-10.1); CO2 30 mmol/L (21-32); CREATININE 0.7 mg/dL (0.55-1.02); GLUCOSE,RANDOM 137 mg/dL (74-106); MAGNESIUM 2.3 mg/dL (1.8-2.4); SGOT/AST 31 U/L (15-37); SGPT/ALT 37 U/L (12-78); TOT PROT 5.7 g/dl (6.4-8.2)
[2016-03-25 09:03] LABS: METAMYELOCYTE 1 % (0-2)
[2016-03-25 09:04] LABS: PLATELET ESTIMATE ADEQUATE (NORMAL)
--- NOTE | 2016-03-25 09:22 | PN ---
Physical Exam: SUBJECTIVE: Patient seen and examined. More alert today. Interacting with family. OBJECTIVE: Vital Signs Period Temp Pulse Resp BP Sys/[place]ford Pulse Ox Last 24 Hr 97.7 F-101.9 F 91-103 16-20 100-130/45-64 96-98 GENERAL: The patient is awake, follows commands, interacting with family more. HEAD: Resolving periorbital and facial ecchymoses EYES: PERRL, sclera anicteric, conjunctiva clear. No ptosis. LUNGS: Diffuse crackles, + productive cough HEART: Regular rate and rhythm, S1, S2 ABDOMEN: RUQ and RLQ tenderness persists EXTREMITIES: 2+ pulses, warm, well-perfused, no edema. 4cm tumorous growth RLE. NEUROLOGICAL: Cranial nerves II through XII grossly intact. Laboratory Results - last 24 hr 03/24/16 03/24/16 03/24/16 06:00 20:30 20:40 WBC RBC Hgb Hct MCV MCHC RDW Plt Count MPV Neutrophils % 80.0 Lymphocytes % 6.0 L Monocytes % 7.0 Eosinophils % 2.0 Band Neutrophils 5.0 D Metamyelocytes Toxic Granulation 1+ Platelet Estimate Adequate Platelet Comment No clotting detected Hypochromic-Microcytic 1+ Anisocytosis 1+ Puncture Site ABG pH ABG pCO2 at Pt Temp ABG pO2 at Pt Temp ABG HCO3 ABG O2 Sat (Measured) ABG O2 Content ABG Base Excess Obdulio Test O2 Delivery Device Oxygen Flow Rate Sodium Potassium Chloride Carbon Dioxide Anion Gap BUN Creatinine Creat Clearance w eGFR Random Glucose Lactic Acid 2.696 H* Calcium Magnesium Total Bilirubin Direct Bilirubin AST ALT Alkaline Phosphatase Total Protein Albumin Lipase Urine Color Yellow Urine Appearance Clear Urine pH 5.0 Ur Specific [place] 1.019 Urine Protein Negative Urine Glucose (UA) Negative Urine Ketones Negative Urine Blood Negative Urine Nitrite Negative Urine Bilirubin Negative Urine Urobilinogen Negative Ur Leukocyte Esterase Negative 03/24/16 03/25/16 03/25/16 23:25 02:15 06:00 WBC 11.0 H RBC 3.57 L Hgb 11.2 Hct 34.0 MCV 95.4 MCHC 32.9 RDW 17.4 H Plt Count 278 MPV 10.3 Neutrophils % 57.0 D Lymphocytes % 11.0 D Monocytes % 13.0 H D Eosinophils % 8.0 H D Band Neutrophils 10.0 D Metamyelocytes 1 Toxic Granulation Platelet Estimate Adequate Platelet Comment Hypochromic-Microcytic Anisocytosis Puncture Site Right brachial ABG pH 7.44 ABG pCO2 at Pt Temp 43.1 ABG pO2 at Pt Temp 87.4 ABG HCO3 28.8 H ABG O2 Sat (Measured) 97.0 ABG O2 Content 14.7 L ABG Base Excess 4.6 H Obdulio Test Positive O2 Delivery Device N/c Oxygen Flow Rate 3lpm Sodium Potassium Chloride Carbon Dioxide Anion Gap BUN Creatinine Creat Clearance w eGFR Random Glucose Lactic Acid 1.018 Calcium Magnesium Total Bilirubin Direct Bilirubin AST ALT Alkaline Phosphatase Total Protein Albumin Lipase Urine Color Urine Appearance Urine pH Ur Specific [place] Urine Protein Urine Glucose (UA) Urine Ketones Urine Blood Urine Nitrite Urine Bilirubin Urine Urobilinogen Ur Leukocyte Esterase 03/25/16 03/25/16 03/25/16 06:00 06:00 06:00 WBC RBC Hgb Hct MCV MCHC RDW Plt Count MPV Neutrophils % Lymphocytes % Monocytes % Eosinophils % Band Neutrophils Metamyelocytes Toxic Granulation Platelet Estimate Platelet Comment Hypochromic-Microcytic Anisocytosis Puncture Site ABG pH ABG pCO2 at Pt Temp ABG pO2 at Pt Temp ABG HCO3 ABG O2 Sat (Measured) ABG O2 Content ABG Base Excess Obdulio Test O2 Delivery Device Oxygen Flow Rate Sodium 141 Potassium 4.2 Chloride 105 Carbon Dioxide 30 Anion Gap 6 L BUN 21 H D Creatinine 0.7 Creat Clearance w eGFR > 60 Random Glucose 137 H Lactic Acid 1.113 Calcium 7.8 L Magnesium 2.3 Total Bilirubin 0.6 0.4 D Direct Bilirubin 0.2 AST 31 D 28 ALT 37 D 33 Alkaline Phosphatase 97 D 101 Total Protein 5.7 L 5.6 L Albumin 2.0 L 1.9 L Lipase 79 Urine Color Urine Appearance Urine pH Ur Specific [place] Urine Protein Urine Glucose (UA) Urine Ketones Urine Blood Urine Nitrite Urine Bilirubin Urine Urobilinogen Ur Leukocyte Esterase Active Medications Generic Name Dose Route Start Last Admin Trade Name Freq PRN Reason Stop Dose Admin Acetaminophen 650 mg 03/11/16 10:54 03/24/16 17:34 Tylenol - PO 650 mg Q6H PRN Administration FEVER OR PAIN Acetylcysteine 1,000 mg 03/19/16 22:45 03/24/16 21:40 Mucomyst 20 Oral / Inh Use Only* NEB 1,000 mg BID JUAN Administration Albuterol Sulfate 1 amp 03/19/16 23:15 03/24/16 21:40 Ventolin 0.083% Nebulizer Soln - NEB 1 amp BID JUAN Administration Albuterol/Ipratropium 1 amp 03/20/16 15:15 03/21/16 06:30 Duoneb - NEB 1 amp Q6H PRN Administration PAIN Bacitracin 1 applic 03/16/16 15:45 03/24/16 10:19 Bacitracin - TP 1 applic DAILY JUAN Administration Diphenhydramine HCl 25 mg 03/15/16 11:00 03/25/16 03:19 Benadryl Injection - IVPUSH 25 mg Q6H-IV JUAN Administration Docusate Sodium 100 mg 03/16/16 13:09 03/21/16 09:42 Colace - PO 100 mg TID PRN Administration CONSTIPATION Enoxaparin Sodium 30 mg 03/22/16 10:00 03/24/16 10:19 Lovenox - SQ 30 mg DAILY JUAN Administration Guaifenesin 5 ml 03/18/16 08:32 03/24/16 10:37 Diabetic Tussin Dm - PO 5 ml Q6H PRN Administration COUGH Guaifenesin 10 ml 03/23/16 22:00 03/24/16 21:02 Robitussin - PO 10 ml HS JUAN Administration Piperacillin Sod/Tazobactam Sod 50 mls @ 100 mls/hr 03/24/16 02:00 03/25/16 03: 19 Zosyn 3.375gm Ivpb (Pre-Docked) IVPB 100 mls/hr Q8H-IV JUAN Administration Sodium Chloride 1,000 mls @ 60 mls/hr 03/25/16 02:30 03/25/16 03:14 Normal Saline - IV 60 mls/hr ASDIR JUAN Administration Metoprolol Tartrate 25 mg 03/23/16 06:00 03/25/16 06:49 Lopressor - PO Not Given TID JUAN Metoprolol Tartrate 5 mg 03/23/16 09:00 03/23/16 09:36 Lopressor Injection - IVPUSH 5 mg Q4H PRN Administration TACHYCARDIA Nystatin/Triamcinolone Acetonide 1 applic 03/16/16 12:45 03/24/16 21:02 Mycolog Ii Cream - TP 1 applic BID JUAN Administration Pantoprazole Sodium 40 mg 03/10/16 15:00 03/24/16 10:17 Protonix - PO 40 mg DAILY JUAN Administration Zinc Acetate/Diphenhydramine 1 applic 03/14/16 10:00 03/24/16 21:02 Benadryl 2% Cream TP 1 applic BID JUAN Administration Microbiology 03/23/16 07:15 Blood - Peripheral Venous Blood Culture - Preliminary NO GROWTH OBTAINED AFTER 48 HOURS, INCUBATION TO CONTINUE FOR 3 DAYS. 03/23/16 07:15 Blood - Peripheral Venous Blood Culture - Preliminary NO GROWTH OBTAINED AFTER 48 HOURS, INCUBATION TO CONTINUE FOR 3 DAYS. 03/15/16 12:45 Tissue-Other AFB Smear Concentration - Final 03/15/16 12:45 Tissue-Other Mycobacterial Culture - Preliminary 03/08/16 19:15 Nasopharyngeal Swab Respiratory Virus Panel - Final 03/15/16 13:03 Tissue-Other Gram Stain - Final 03/15/16 13:03 Tissue-Other Tissue Culture - Final NO GROWTH OF AEROBIC ORGANISMS AFTER 48 HOURS INCUBATION 03/15/16 13:03 Tissue-Other Anaerobic Culture - Final NO ANAEROBES WERE ISOLATED 03/15/16 12:19 Pericardial Fluid Gram Stain - Final 03/15/16 12:19 Pericardial Fluid Body Fluid Culture - Final NO GROWTH OF AEROBIC ORGANISMS AFTER 48 HOURS INCUBATION 03/15/16 12:19 Pericardial Fluid Anaerobic Culture - Final NO ANAEROBES WERE ISOLATED 03/15/16 13:03 Tissue-Other JER Preparation - Preliminary 03/15/16 13:03 Tissue-Other Fungal Culture - Preliminary 03/08/16 21:10 Urine - Urine Clean Catch Urine Culture - Final NO GROWTH OBTAINED 03/08/16 19:15 Nasopharyngeal Swab Influenza Types A,B Antigen (ZEESHAN) - Final 03/08/16 19:15 Nasopharyngeal Swab - Final ASSESSMENT/PLAN: This is hospital day #16, POD #10 for this 75 year-old female with PMH of HTN, [place] x2, pericardial effusion s/p pericardial window on 03/15. Prolonged hopsital course. Spiking fevers for 48 hours. Moderate pericardial effusion Severe sytolic heart failure --s/p pericardial window 03/15, today is POD #10; fungal culture pending, cytology pending --03/24 CT chest shows moderate pericardial effusion; echo on 03/21 had shown only trivial pericardial effusion, will get repeat echo --CT also shows moderate bilateral pleural effusions Severe sepsis Pneumonia --fever to 101.9, WBC 11.0 --CT chest shows consolidation in bilateral lower lobes, lingula, and RML --BP low; continue gentle IV fluids --cultures pending --continue Zosyn --ID following Lactic acidosis, resolved --lactic acid 2.6-->1.0 after gentle IV fluids Cholelithiasis --03/24 CTAP: gallbladder "packed" with stones on [employer] read --03/24 US: innumberable gallstones, wall borderline thickness, CBD wnl Elevated troponins --03/23 0.12-->0.28-->0.14 --likely secondary to infectious process/demand ischemia Soft tissue facial injuries s/p mechanical fall, resolving r/o malignancy --imaging from [facility] showed lytic lesions throughout the calvarium and the cervical spine; also with tumorous growth on RLE --no further workup per HCP Abdominal rash --likely reaction to Ensure that contains milk products; d/c F/E/N Fluids: PO intake adequate Electrolyes: replete as indicated Nutrition: low sodium DVT prophylaxis: lovenox Dispo: Family considering palliative care. Please include Shayy [phone], a family friend who is also a nurse in any palliative care conversation. Continues to require inpatient care. Full Code. Visit type - Emergency Visit Emergency Visit: Yes ED Registration Date: 03/09/16 Care time: The patient presented to the Emergency Department on the above date and was hospitalized for further evaluation of their emergent condition. - New Patient This patient is new to me today: No - Critical Care Critical Care patient: Yes Total Critical Care Time (in minutes): 45 Critical Care Statement: The care of this patient involved high complexity decision making to prevent further life threatening deterioration of the patient 's condition and/or to evalute & treat vital organ system(s) failure or risk of failure.
[2016-03-25] MEDS: ACETYLCYSTEINE 20% 200MG/ML 4 ML VIAL *FOR ORAL / INH USE ONLY NEB SCH (09:55)
[2016-03-25] MEDS: ALBUTEROL SO4 0.083% IH SOL 2.5 MG/3 ML VIAL.NEB. NEB SCH ×2 (09:55→22:21)
[2016-03-25] MEDS: BACITRACIN 30 GM TUBE TOPICAL OINTMENT TP SCH (10:46)
[2016-03-25] MEDS: PANTOPRAZOLE 40 MG TABLET (FP) PO SCH (10:47)
[2016-03-25] MEDS: ENOXAPARIN NA (PORCINE) 30 MG/0.3 ML DISP.SYRIN SQ SCH (10:47)
[2016-03-25] MEDS: NYSTATIN/TRIAMCINOLONE TOPICAL CREAM 15 GM TUBE TP SCH ×2 (10:47→22:18)
[2016-03-25 11:45] LABS: ARTERIAL BLD GAS O2 SATURATION 99.5 % (90-98.9); ARTERIAL BLOOD GAS BASE EXCESS 3.2 meq/l (-2-2); ARTERIAL BLOOD GAS HCO3 26.8 meq/L (22-26)
[2016-03-25 11:46] LABS: ALLENS TEST POSITIVE; ART PUNCT SITE RIGHT RADIAL; ARTERIAL BLOOD GAS pH 7.46 (7.35-7.45); LPM/O2% 100%; PT. ON O2? YES; TYPE OF O2 NON-REBREATHER
--- NOTE | 2016-03-25 12:04 | PN ---
Physical Exam: Summoned to patient's room by RN. HR 160s on bedside monitor. Patient awake, responsive, able to communicate with daughter. Complained of mild mid sternal chest pain. Not diaphoretic. Breathing unlabored. Initial vitals 115/75, HR 155 , SaO2 91% on 3L NC RR 22. Placed on NRB. Initial ECG showed sinus tach at 143 but with T wave inversions not seen on yesterday's ECG. Metoprolol 5mg IVP x 2 given over a period of 15 minutes, rate improved to 110. Labs, cardiac enzymes, lactic acid, ABG drawn. CXR done. Patient transferred to ICU. Visit type - Emergency Visit Emergency Visit: Yes ED Registration Date: 03/09/16 Care time: The patient presented to the Emergency Department on the above date and was hospitalized for further evaluation of their emergent condition. - New Patient This patient is new to me today: No - Critical Care Critical Care patient: Yes Total Critical Care Time (in minutes): 30 Critical Care Statement: The care of this patient involved high complexity decision making to prevent further life threatening deterioration of the patient 's condition and/or to evalute & treat vital organ system(s) failure or risk of failure.
[2016-03-25 12:13] LABS: MCH 31.1 pg (25.7-33.7); MCHC 32.6 g/dl (32.0-36.0); MEAN CELL VOLUME 95.2 fl (80-96); MEAN PLT VOLUME 9.6 fl (7.5-11.1); PLATELET COUNT 273 K/MM3 (134-434); RDW 17.4 % (11.6-15.6)
--- NOTE | 2016-03-25 12:19 | CONSULT ---
Consult - text type - Consultation Consultation Note: PULM/CCM CC: rapid afib, fever Hx from Hospitalist, medical record, family (pt Cypriot Speaking only) HPI: Briefly Ms Louise is ?75 y/o woman with hx of CAD, AMI, dementia who has been hospitalized here since mid February with issues of pericardial effusion now s/p window, pneumonia, and weakness/failure to thrive. She was d/c from ICU to floor only two days ago. She now returns to ICU with fever to 101, new onset afib with RVR, increased WOB. Yesterday pt was febrile, seen by ID, cont on Pip/ Tim and given some volume for increase lactate, which down trended nicely. This morning developed Afib to 160s without signicant drop in BP. Given lopressor 5mg IV x 2 with good response down to 120s, had refused PO BB this morning apparently. Her WOB has been increasing, although CXR is largely unchanged. After her window was done she had only a trace effusion however there is now concern of possible reaccumulation on CT. TTE was ordered. Given worsening clinical status and new afib pt return to ICU for further care. Repeat lactate, trop, BNP sent. Senior Paralegal Dr Arellano contacted by Hospitalist Dhruv, to see this afternoon. Past Medical History Cardio/Vascular HTN,GA Heme/Onc Other (skin cancer) Past Surgical History Past Surgical History None (unknown patient does not understand luxembourgish ) Smoking History Smoking history Never smoked Aproximately how many 0 cigarettes per day Alcohol/Substance Use Hx Alcohol Use No Social History Usual Living Arrangement With Child ADL Family Assistance History of Recent Travel Yes: Arrived from [place] by flight Active Medications Acetaminophen (Tylenol -) 650 mg PO Q6H PRN PRN Reason: FEVER OR PAIN Last Admin: 03/24/16 17:34 Dose: 650 mg Albuterol Sulfate (Ventolin 0.083% Nebulizer Soln -) 1 amp NEB BID JUAN Last Admin: 03/25/16 09:55 Dose: 1 amp Albuterol/Ipratropium (Duoneb -) 1 amp NEB Q6H PRN PRN Reason: PAIN Last Admin: 03/21/16 06:30 Dose: 1 amp Bacitracin (Bacitracin -) 1 applic TP DAILY JUAN Last Admin: 03/25/16 10:46 Dose: 1 applic Diphenhydramine HCl (Benadryl Injection -) 25 mg IVPUSH Q6H-IV [facility] Last Admin: 03/25/16 10:46 Dose: Not Given Docusate Sodium (Colace -) 100 mg PO TID PRN PRN Reason: CONSTIPATION Last Admin: 03/21/16 09:42 Dose: 100 mg Enoxaparin Sodium (Lovenox -) 30 mg SQ DAILY [facility] Last Admin: 03/25/16 10:47 Dose: 30 mg Guaifenesin (Diabetic Tussin Dm -) 5 ml PO Q6H PRN PRN Reason: COUGH Last Admin: 03/24/16 10:37 Dose: 5 ml Guaifenesin (Robitussin -) 10 ml PO HS [facility] Last Admin: 03/24/16 21:02 Dose: 10 ml Piperacillin Sod/Tazobactam Sod (Zosyn 3.375gm Ivpb (Pre-Docked)) 50 mls @ 100 mls/hr IVPB Q8H-IV [facility] Last Admin: 03/25/16 10:47 Dose: 100 mls/hr Sodium Chloride (Normal Saline -) 1,000 mls @ 60 mls/hr IV ASDIR [facility] Last Admin: 03/25/16 03:14 Dose: 60 mls/hr Metoprolol Tartrate (Lopressor -) 25 mg PO TID [facility] Last Admin: 03/25/16 06:49 Dose: Not Given Metoprolol Tartrate (Lopressor Injection -) 5 mg IVPUSH Q4H PRN PRN Reason: TACHYCARDIA Last Admin: 03/23/16 09:36 Dose: 5 mg Nystatin/Triamcinolone Acetonide (Mycolog Ii Cream -) 1 applic TP BID [facility] Last Admin: 03/25/16 10:47 Dose: 1 applic Pantoprazole Sodium (Protonix -) 40 mg PO DAILY [facility] Last Admin: 03/25/16 10:47 Dose: Not Given Zinc Acetate/Diphenhydramine (Benadryl 2% Cream) 1 applic TP BID [facility] Last Admin: 03/25/16 10:46 Dose: Not Given Vital Signs Temp 98.3 F 03/25/16 10:00 Pulse 97 H 03/25/16 10:00----Afib 120-160 Resp 18 03/25/16 10:00 BP 108/50 03/25/16 10:00 Pulse Ox 93 L 03/25/16 09:55 Intake & Output 03/24/16 03/25/16 03/25/16 23:59 11:59 23:59 Intake Total 380 Output Total 300 400 Balance 80 -400 Intake: IV 180 D5-1/2Ns - 1,000 ml @ 60 180 mls/hr IV ASDIR JUAN Rx#: [id number] IVPB 100 Oral 100 Output: Urine 300 400 Cooper 300 400 Other: Voiding Method Indwelling Catheter Indwelling Catheter CBC, BMP 03/25/16 12:05 CBCD WBC 12.0 K/mm3 (4.0-10.0) H 03/25/16 12:05 RBC 3.66 M/mm3 (3.60-5.2) 03/25/16 12:05 Hgb 11.4 GM/dL (10.7-15.3) 03/25/16 12:05 Hct 34.8 % (32.4-45.2) 03/25/16 12:05 MCV 95.2 fl (80-96) 03/25/16 12:05 MCHC 32.6 g/dl (32.0-36.0) 03/25/16 12:05 RDW 17.4 % (11.6-15.6) H 03/25/16 12:05 Plt Count 273 K/MM3 (134-434) 03/25/16 12:05 MPV 9.6 fl (7.5-11.1) 03/25/16 12:05 CMP Sodium 141 mmol/L (136-145) 03/25/16 06:00 Potassium 4.2 mmol/L (3.5-5.1) 03/25/16 06:00 Chloride 105 mmol/L (98-107) 03/25/16 06:00 Carbon Dioxide 30 mmol/L (21-32) 03/25/16 06:00 Anion Gap 6 (8-16) L 03/25/16 06:00 BUN 21 mg/dL (7-18) H D 03/25/16 06:00 Creatinine 0.7 mg/dL (0.55-1.02) 03/25/16 06:00 Creat Clearance w eGFR > 60 (>60) 03/25/16 06:00 Calcium 7.8 mg/dL (8.5-10.1) L 03/25/16 06:00 Total Bilirubin 0.6 mg/dL (0.2-1.0) 03/25/16 06:00 AST 31 U/L (15-37) D 03/25/16 06:00 ALT 37 U/L (12-78) D 03/25/16 06:00 Alkaline Phosphatase 97 U/L (45-117) D 03/25/16 06:00 Total Protein 5.7 g/dl (6.4-8.2) L 03/25/16 06:00 Albumin 2.0 g/dl (3.4-5.0) L 03/25/16 06:00 EKG: Atrial Fibrillation with RVR, 130. TWI V4-6 CXR; vasc congestion, small bilateral effusion, no dense infiltrate, poor insp film, no pneumo. uncoiled aorta, silhouette appears unchanged PE: Gen; frail, eld woman, no overt distress HEENT: PERRL, + JVP, no mass CV: irregular, no m/r/g, Not diminished HS, PMI wnl PULM: clear anterior, diminished bases, no wheezes ABD; soft, NT, ND EXT: trace edema NEURO: interacting with daughter appropriately A/P: 78+ y/o woman with CHF, likely malignancy recurrent ICU stay, now returning with new afib RVR Afib RVR Pericardial Effusion HCAP Early Cardiac Tamponade s/p Pericardial Window LV Systolic Dysfunction Hypoxia resolved HTN Dementia r/o Malignancy - Cardiology following, HR controlled with BB ? sepsis vs effusion as possible cause -consider amio load -would not anticoagulate given recent window and possible bloody reaccumulation , hold Lovenox -thoracic if become hypotensive or clear reaccumulation -hold diuresis until eval of pericardial effusion, fluid if becomes hypotensive -antibiotics per ID -ICU monitoring -cont GOC discussion, decreasing likelyhood of being able to return to [place] which is pt and family primary desire. Breezy Toro ACNP [id number] 35min CCT
[2016-03-25] MEDS: METOPROLOL TARTRATE 5 MG/5 ML VIAL IVPUSH PRN (12:36)
[2016-03-25 12:50] LABS: ALBUMIN 2.1 g/dl (3.4-5.0); ANION GAP 7 (8-16); BILIRUBIN,TOTAL 0.4 mg/dL (0.2-1.0); CALCIUM 8.1 mg/dL (8.5-10.1); CO2 29 mmol/L (21-32); CREATININE 0.6 mg/dL (0.55-1.02); GLUCOSE,RANDOM 135 mg/dL (74-106); MAGNESIUM 2.3 mg/dL (1.8-2.4); SGOT/AST 25 U/L (15-37); SGPT/ALT 34 U/L (12-78); TOT PROT 5.9 g/dl (6.4-8.2)
[2016-03-25 12:51] LABS: ALK PHOS 98 U/L (45-117)
[2016-03-25 13:07] LABS: TROPONIN I (DFP) 0.09 ng/ml (0.03-0.50)
--- NOTE | 2016-03-25 13:11 | CONSULT ---
Consult - text type - Consultation Consultation Note: Consultation Note: PULM/CCM CC: rapid afib, fever Hx from Hospitalist, medical record, family (pt Nepali Speaking only) HPI: Briefly Ms Louise is ?75 y/o woman with hx of CAD, AMI, dementia who has been hospitalized here since mid February with issues of pericardial effusion now s/p window, pneumonia, and weakness/failure to thrive. She was d/c from ICU to floor only two days ago. She now returns to ICU with fever to 101, new onset afib with RVR, increased WOB. Yesterday pt was febrile, seen by ID, cont on Pip/ Tim and given some volume for increase lactate, which down trended nicely. This morning developed Afib to 160s without signicant drop in BP. Given lopressor 5mg IV x 2 with good response down to 120s, had refused PO BB this morning apparently. Her WOB has been increasing, although CXR is largely unchanged. After her window was done she had only a trace effusion however there is now concern of possible reaccumulation on CT. TTE was ordered. Given worsening clinical status and new afib pt return to ICU for further care. Repeat lactate, trop, BNP sent. [employer] Tech Dr Arellano contacted by Hospitalist Dhruv, to see this afternoon. Past Medical History Cardio/Vascular HTN,[place] Heme/Onc Other (skin cancer) Past Surgical History Past Surgical History None (unknown patient does not understand italian ) Smoking History Smoking history Never smoked Aproximately how many 0 cigarettes per day Alcohol/Substance Use Hx Alcohol Use No Social History Usual Living Arrangement With Child ADL Family Assistance History of Recent Travel Yes: Arrived from [place] by flight Active Medications Acetaminophen (Tylenol -) 650 mg PO Q6H PRN PRN Reason: FEVER OR PAIN Last Admin: 03/24/16 17:34 Dose: 650 mg Albuterol Sulfate (Ventolin 0.083% Nebulizer Soln -) 1 amp NEB BID JUAN Last Admin: 03/25/16 09:55 Dose: 1 amp Albuterol/Ipratropium (Duoneb -) 1 amp NEB Q6H PRN PRN Reason: PAIN Last Admin: 03/21/16 06:30 Dose: 1 amp Bacitracin (Bacitracin -) 1 applic TP DAILY JUAN Last Admin: 03/25/16 10:46 Dose: 1 applic Diphenhydramine HCl (Benadryl Injection -) 25 mg IVPUSH Q6H-IV [facility] Last Admin: 03/25/16 10:46 Dose: Not Given Docusate Sodium (Colace -) 100 mg PO TID PRN PRN Reason: CONSTIPATION Last Admin: 03/21/16 09:42 Dose: 100 mg Enoxaparin Sodium (Lovenox -) 30 mg SQ DAILY [facility] Last Admin: 03/25/16 10:47 Dose: 30 mg Guaifenesin (Diabetic Tussin Dm -) 5 ml PO Q6H PRN PRN Reason: COUGH Last Admin: 03/24/16 10:37 Dose: 5 ml Guaifenesin (Robitussin -) 10 ml PO HS [facility] Last Admin: 03/24/16 21:02 Dose: 10 ml Piperacillin Sod/Tazobactam Sod (Zosyn 3.375gm Ivpb (Pre-Docked)) 50 mls @ 100 mls/hr IVPB Q8H-IV [facility] Last Admin: 03/25/16 10:47 Dose: 100 mls/hr Sodium Chloride (Normal Saline -) 1,000 mls @ 60 mls/hr IV ASDIR [facility] Last Admin: 03/25/16 03:14 Dose: 60 mls/hr Metoprolol Tartrate (Lopressor -) 25 mg PO TID [facility] Last Admin: 03/25/16 06:49 Dose: Not Given Metoprolol Tartrate (Lopressor Injection -) 5 mg IVPUSH Q4H PRN PRN Reason: TACHYCARDIA Last Admin: 03/23/16 09:36 Dose: 5 mg Nystatin/Triamcinolone Acetonide (Mycolog Ii Cream -) 1 applic TP BID [facility] Last Admin: 03/25/16 10:47 Dose: 1 applic Pantoprazole Sodium (Protonix -) 40 mg PO DAILY [facility] Last Admin: 03/25/16 10:47 Dose: Not Given Zinc Acetate/Diphenhydramine (Benadryl 2% Cream) 1 applic TP BID [facility] Last Admin: 03/25/16 10:46 Dose: Not Given Vital Signs Temp 98.3 F 03/25/16 10:00 Pulse 97 H 03/25/16 10:00----Afib 120-160 Resp 18 03/25/16 10:00 BP 108/50 03/25/16 10:00 Pulse Ox 93 L 03/25/16 09:55 Intake & Output 03/24/16 03/25/16 03/25/16 23:59 11:59 23:59 Intake Total 380 Output Total 300 400 Balance 80 -400 Intake: IV 180 D5-1/2Ns - 1,000 ml @ 60 180 mls/hr IV ASDIR [facility] Rx#: [id number] IVPB 100 Oral 100 Output: Urine 300 400 Cooper 300 400 Other: Voiding Method Indwelling Catheter Indwelling Catheter CBC, BMP 03/25/16 12:05 CBCD WBC 12.0 K/mm3 (4.0-10.0) H 03/25/16 12:05 RBC 3.66 M/mm3 (3.60-5.2) 03/25/16 12:05 Hgb 11.4 GM/dL (10.7-15.3) 03/25/16 12:05 Hct 34.8 % (32.4-45.2) 03/25/16 12:05 MCV 95.2 fl (80-96) 03/25/16 12:05 MCHC 32.6 g/dl (32.0-36.0) 03/25/16 12:05 RDW 17.4 % (11.6-15.6) H 03/25/16 12:05 Plt Count 273 K/MM3 (134-434) 03/25/16 12:05 MPV 9.6 fl (7.5-11.1) 03/25/16 12:05 CMP Sodium 141 mmol/L (136-145) 03/25/16 06:00 Potassium 4.2 mmol/L (3.5-5.1) 03/25/16 06:00 Chloride 105 mmol/L (98-107) 03/25/16 06:00 Carbon Dioxide 30 mmol/L (21-32) 03/25/16 06:00 Anion Gap 6 (8-16) L 03/25/16 06:00 BUN 21 mg/dL (7-18) H D 03/25/16 06:00 Creatinine 0.7 mg/dL (0.55-1.02) 03/25/16 06:00 Creat Clearance w eGFR > 60 (>60) 03/25/16 06:00 Calcium 7.8 mg/dL (8.5-10.1) L 03/25/16 06:00 Total Bilirubin 0.6 mg/dL (0.2-1.0) 03/25/16 06:00 AST 31 U/L (15-37) D 03/25/16 06:00 ALT 37 U/L (12-78) D 03/25/16 06:00 Alkaline Phosphatase 97 U/L (45-117) D 03/25/16 06:00 Total Protein 5.7 g/dl (6.4-8.2) L 03/25/16 06:00 Albumin 2.0 g/dl (3.4-5.0) L 03/25/16 06:00 EKG: Atrial Fibrillation with RVR, 130. TWI V4-6 CXR; vasc congestion, small bilateral effusion, no dense infiltrate, poor insp film, no pneumo. uncoiled aorta, silhouette appears unchanged PE: Gen; frail, eld woman, no overt distress HEENT: PERRL, + JVP, no mass CV: irregular, no m/r/g, Not diminished HS, PMI wnl PULM: clear anterior, diminished bases, no wheezes ABD; soft, NT, ND EXT: trace edema NEURO: interacting with daughter appropriately A/P: 78+ y/o woman with CHF, likely malignancy recurrent ICU stay, now returning with new afib RVR Afib RVR Pericardial Effusion HCAP Early Cardiac Tamponade s/p Pericardial Window LV Systolic Dysfunction Hypoxia resolved HTN Dementia r/o Malignancy - Cardiology following, HR controlled with BB ? sepsis vs effusion as possible cause -consider amio load -serial trop, check T-BNP, f/u TTE -would not anticoagulate given recent window and possible bloody reaccumulation , hold Lovenox for now -thoracic if become hypotensive or clear reaccumulation -hold diuresis until eval of pericardial effusion, fluid if becomes hypotensive -antibiotics per ID -ICU monitoring -cont GOC discussion, decreasing likelyhood of being able to return to [place] which is pt and family primary desire. Breezy Toro ACNP [id number] 35min CCT
--- NOTE | 2016-03-25 14:06 | PN ---
Progress Note (short form) - Note Progress Note: CC: pericardial effusion s: Progressive weakness. Significant diffuse abdominal pain. Oral pain. + nausea, unable to eat. + cough persists. no sob cp dizzy--family translating. Went back into RVR transferred to ICU. o: Current Medications Acetaminophen (Tylenol -) 650 mg PO Q6H PRN PRN Reason: FEVER OR PAIN Last Admin: 03/24/16 17:34 Dose: 650 mg Albuterol Sulfate (Ventolin 0.083% Nebulizer Soln -) 1 amp NEB BID JUAN Last Admin: 03/25/16 09:55 Dose: 1 amp Albuterol/Ipratropium (Duoneb -) 1 amp NEB Q6H PRN PRN Reason: PAIN Last Admin: 03/21/16 06:30 Dose: 1 amp Bacitracin (Bacitracin -) 1 applic TP DAILY JUAN Last Admin: 03/25/16 10:46 Dose: 1 applic Diphenhydramine HCl (Benadryl Injection -) 25 mg IVPUSH Q6H-IV JUAN Last Admin: 03/25/16 10:46 Dose: Not Given Docusate Sodium (Colace -) 100 mg PO TID PRN PRN Reason: CONSTIPATION Last Admin: 03/21/16 09:42 Dose: 100 mg Guaifenesin (Diabetic Tussin Dm -) 5 ml PO Q6H PRN PRN Reason: COUGH Last Admin: 03/24/16 10:37 Dose: 5 ml Guaifenesin (Robitussin -) 10 ml PO HS JUAN Last Admin: 03/24/16 21:02 Dose: 10 ml Piperacillin Sod/Tazobactam Sod (Zosyn 3.375gm Ivpb (Pre-Docked)) 50 mls @ 100 mls/hr IVPB Q8H-IV JUAN Last Admin: 03/25/16 10:47 Dose: 100 mls/hr Sodium Chloride (Normal Saline -) 1,000 mls @ 60 mls/hr IV ASDIR JUAN Last Admin: 03/25/16 03:14 Dose: 60 mls/hr Metoprolol Tartrate (Lopressor -) 25 mg PO TID JUAN Last Admin: 03/25/16 06:49 Dose: Not Given Metoprolol Tartrate (Lopressor Injection -) 5 mg IVPUSH Q4H PRN PRN Reason: TACHYCARDIA Last Admin: 03/25/16 12:36 Dose: 5 mg Nystatin/Triamcinolone Acetonide (Mycolog Ii Cream -) 1 applic TP BID [facility] Last Admin: 03/25/16 10:47 Dose: 1 applic Pantoprazole Sodium (Protonix -) 40 mg PO DAILY [facility] Last Admin: 03/25/16 10:47 Dose: Not Given Zinc Acetate/Diphenhydramine (Benadryl 2% Cream) 1 applic TP BID [facility] Last Admin: 03/25/16 10:46 Dose: Not Given Vital Signs - 24 hr 03/24/16 03/24/16 03/24/16 17:34 18:00 21:00 Temperature 101.9 F H 99.0 F Pulse Rate 103 H Respiratory 20 20 Rate Blood Pressure 130/64 O2 Sat by Pulse 98 Oximetry (%) 03/25/16 03/25/16 03/25/16 01:00 06:00 09:00 Temperature 98.2 F Pulse Rate 92 H 98 H Respiratory 20 16 16 Rate Blood Pressure 104/52 100/45 O2 Sat by Pulse 97 Oximetry (%) 03/25/16 03/25/16 03/25/16 09:55 10:00 12:36 Temperature 98.3 F Pulse Rate 95 H 97 H 144 H Respiratory 18 Rate Blood Pressure 108/50 123/76 O2 Sat by Pulse 93 L Oximetry (%) Intake & Output 03/23/16 03/24/16 03/25/16 03/26/16 07:59 07:59 07:59 07:59 Intake Total 150 300 380 Output Total 700 Balance 150 300 -320 Weight 111 lb 2 oz Constitutional: Yes: No Distress, Calm Eyes: No: Sclera Icterus Cardiovascular: Yes: rrr, + jvd vs prominent v wave, nl S1, S2,. No: Gallop, Murmur, Rub Respiratory: Yes: scattered rhonchi; No: Accessory Muscle Use, Rales, Wheezes Gastrointestinal: Yes: Normal Bowel Sounds, Soft. + tenderness Extremities: No: Cold Edema: No Integumentary: No: Jaundice diaphoresis Neurological: Yes: Alert. Psychiatric: No: Agitated CBC, BMP 03/25/16 12:05 03/25/16 12:05 Laboratory Tests 03/08/16 03/25/16 03/25/16 19:38 11:43 12:05 ABG pH 7.46 H ABG pCO2 at Pt Temp 38.6 ABG pO2 at Pt Temp 221.0 H* D ABG HCO3 26.8 H ABG O2 Sat (Measured) 99.5 H O2 Delivery Device Non-rebreather Oxygen Flow Rate 100% Total Bilirubin 0.4 AST 25 ALT 34 Alkaline Phosphatase 98 Troponin I B-Natriuretic Peptide 834.34 H 6152.20 H Albumin 2.1 L 03/25/16 03/25/16 12:05 12:22 ABG pH ABG pCO2 at Pt Temp ABG pO2 at Pt Temp ABG HCO3 ABG O2 Sat (Measured) O2 Delivery Device Oxygen Flow Rate Total Bilirubin AST ALT Alkaline Phosphatase Troponin I 0.09 0.09 H B-Natriuretic Peptide Albumin Repeat chest/abd CT 03/24: Small subpleural infiltrates, rt basilar and lingular infiltrate. Small-mod pleural effusion. small-moderate pericardial effusion. No abdominal pathology. Echo 03/09/16 : mod-sev dec lvef, inf wall hk, nl rv, mild lae, mild mr/tr, moderate pericardial eff, ?impending tamponade based on ra wall collapse Repeat echo 03/12/16: mild con LVH. mod-sev depressed LV sys func (global), 1+ MR/TR, effusion unchanged, still with early diastolic RA collapse. repeat echo 03/21/16: sev dec lvef, nl rv, mild piotr, mild mr, mod-sev tr, rvsp 40-50, trivial pericardial eff, no signs tamponade tele: sr now, occ pvc's, trigeminy. ( SVT overnight with HR's in 140's) a/p: 75 f (she is 83 according to family) with hx htn, h/o MA x 2, dementia and possible recent diagnosis of cancer (unknown type), here with lethargy, weakness found to have systolic cardiomyopathy and pericardial effusion. pericardial effusion, possible acute pericarditis: -presented with moderate circumferential pericardial eff present but no signs of tamponade. clinically no signs of tamponade as well. -no obvious pericarditis, initially treated empirically with colchicine/ indomethacin but then renal fcn had worsened a little so they have been stopped -hemodynamically stable throughout, with no clinical tamponade -s/p pericardial window 03/16 (diagnostic as well) with 500 cc non-bloody fluid removed. pericardial fluid cultures, cytology pending. -repeat echo shows resolution of eff, but evidence of reaccumulation on 03/24 CT scan with symptoms of nausea. Would not diurese further. Repeat echo on saturday. syst chf: -echo here shows mod-sev decreased lvef with inferior hypokinesis, patient with h/o prior MA--followed by doctors in [place] where she lives, per dtr (here visiting) -cont bb, bp too low for marian-i -no angina or other signs acs, ce's negx3, ecg w/o ischemic changes or significant q waves -03/12: clinically no definite chf, exam equiovocal for JVD--monitor closely with IVF. - 03/13: Now off IVF. CXR with new rt pleural effusion. No change in effusion size or hemodynamics with IVF. gentle diuresis as mentioned above. Strict I/O' s, daily weights. -03/14-: no signs chf on exam/cxr. cont to hold lasix and ivfs for now -will defer ? of need for ischemia eval to [facility] doctors (dtr states pt plans to return as soon as medically stable)--? LV dysfxn is chronic and stable -low dose BB trial as doing. ACEI trial (2.5 mg) given 03/19 but dropped blood pressures. -03/20: Bp trending down s/p lasix and lisinopril yesterday evening. will hold dose this morning. Consider resuming again tomorrow if bp remains stable. WBC rising and cough worsening. Would repeat chest CT. -03/21: still with some chf on imaging and pericardial effusion improved (small on ct chest) so will give iv lasix dose today to help with congestion. -03/22: still with some chf on cxr so agree with 40 iv lasix dose today to help with congestion. -03/23-03/24: developing signs of infection (possible multifocal pna), poor po intake. Holding diuretics. Started on maintenance fluids today 03/24. Continue daily weights. svt/PAT: -has had periodically during admit here but worse overnight. no obvious afib, cont to monitor on tele. -lopressor was increased from bid to tid, cont 25 tid for now - ?infectious etiology driving HR up vs. effusion. Patient with significant oral pain and abdominal pain, PNA on CT. Mgm't of infection per ID. Con't BB, maintenance fluids if hypotensive. lethargy/weakness: -head ct w/o acute findings. likely 2/2 to aforementioned acute illnesses. htn: - cont bb. elevated trop: -trop borderline elevated (peak 0.28) the day after episode of prolonged SVT/ fever. Nl ck, no ischemic changes on ecgs. likely due to demand ischemia from svt overnight in setting of known CAD. Troponin now trending down. No signs of acs presently
--- NOTE | 2016-03-25 17:09 | PN ---
Progress Note, Physician History of Present Illness: patient has rapid heart rate patient was transferred to to ICU patient still having some dropped patient got her ct chest and abdomen family in room patient still coughing - Current Medication List Current Medications: Active Medications Acetaminophen (Tylenol -) 650 mg PO Q6H PRN PRN Reason: FEVER OR PAIN Last Admin: 03/24/16 17:34 Dose: 650 mg Albuterol Sulfate (Ventolin 0.083% Nebulizer Soln -) 1 amp NEB BID JUAN Last Admin: 03/25/16 09:55 Dose: 1 amp Albuterol/Ipratropium (Duoneb -) 1 amp NEB Q6H PRN PRN Reason: PAIN Last Admin: 03/21/16 06:30 Dose: 1 amp Bacitracin (Bacitracin -) 1 applic TP DAILY [facility] Last Admin: 03/25/16 10:46 Dose: 1 applic Diphenhydramine HCl (Benadryl Injection -) 25 mg IVPUSH Q6H-IV [facility] Last Admin: 03/25/16 14:20 Dose: 25 mg Docusate Sodium (Colace -) 100 mg PO TID PRN PRN Reason: CONSTIPATION Last Admin: 03/21/16 09:42 Dose: 100 mg Guaifenesin (Diabetic Tussin Dm -) 5 ml PO Q6H PRN PRN Reason: COUGH Last Admin: 03/24/16 10:37 Dose: 5 ml Guaifenesin (Robitussin -) 10 ml PO HS [facility] Last Admin: 03/24/16 21:02 Dose: 10 ml Piperacillin Sod/Tazobactam Sod (Zosyn 3.375gm Ivpb (Pre-Docked)) 50 mls @ 100 mls/hr IVPB Q8H-IV JUAN Last Admin: 03/25/16 10:47 Dose: 100 mls/hr Sodium Chloride (Normal Saline -) 1,000 mls @ 60 mls/hr IV ASDIR [facility] Last Admin: 03/25/16 03:14 Dose: 60 mls/hr Metoprolol Tartrate (Lopressor -) 25 mg PO TID JUAN Last Admin: 03/25/16 14:05 Dose: 25 mg Metoprolol Tartrate (Lopressor Injection -) 5 mg IVPUSH Q4H PRN PRN Reason: TACHYCARDIA Last Admin: 03/25/16 12:36 Dose: 5 mg Nystatin/Triamcinolone Acetonide (Mycolog Ii Cream -) 1 applic TP BID [facility] Last Admin: 03/25/16 10:47 Dose: 1 applic Pantoprazole Sodium (Protonix -) 40 mg PO DAILY [facility] Last Admin: 03/25/16 10:47 Dose: Not Given Zinc Acetate/Diphenhydramine (Benadryl 2% Cream) 1 applic TP BID [facility] Last Admin: 03/25/16 10:46 Dose: Not Given - Objective Vital Signs: Vital Signs Temperature 99.8 F H 03/25/16 16:00 Pulse Rate 86 03/25/16 16:46 Respiratory Rate 24 03/25/16 16:00 Blood Pressure 118/62 03/25/16 16:00 O2 Sat by Pulse Oximetry (%) 100 03/25/16 16:46 Constitutional: Yes: No Distress, Calm Cardiovascular: Yes: Regular Rate and Rhythm Respiratory: Yes: Poor Air Entry, Rhonchi Gastrointestinal: Yes: Normal Bowel Sounds, Soft, Tenderness (on the rt side) Musculoskeletal: Yes: WNL Extremities: Yes: WNL Neurological: Yes: Alert, Oriented Psychiatric: Yes: Alert Labs: CBC, BMP 03/25/16 12:05 03/25/16 12:05 INR, PTT INR 1.16 (0.82-1.09) H 03/15/16 05:20 Assessment/Plan after evaluating the patient there are couple of things i am worried about one is is the patient having superimposed infection in the lungs though xray does not show any changes there might be some intra abd process Problem List - Problems (1) Hypoxia Code(s): R09.02 - HYPOXEMIA (2) Lethargy Code(s): R53.83 - OTHER FATIGUE (3) Pericardial effusion Code(s): I31.3 - PERICARDIAL EFFUSION (NONINFLAMMATORY) (4) Proteinuria Code(s): R80.9 - PROTEINURIA, UNSPECIFIED (5) Hypertension Code(s): I10 - ESSENTIAL (PRIMARY) HYPERTENSION (6) Skin cancer Code(s): C44.90 - UNSPECIFIED MALIGNANT NEOPLASM OF SKIN, UNSPECIFIED abd pain cough plan continue abx chest physio incentive linn chest percussion continue as per icu cc time 40 min
--- NOTE | 2016-03-25 17:50 | HOSP ---
Subjective - Review of Symptoms Events since last encounter: Spoke with Dr. Rasheed who performed the pericardial window. He reviewed the most recent imaging studies and feels there is no indication for surgical intervention. No need for repeat echo. Physical Examination Vital Signs: Vital Signs Temperature 99.8 F H 03/25/16 16:00 Pulse Rate 86 03/25/16 16:46 Respiratory Rate 24 03/25/16 16:00 Blood Pressure 118/62 03/25/16 16:00 O2 Sat by Pulse Oximetry (%) 100 03/25/16 16:46 Labs: CBC, BMP 03/25/16 12:05 03/25/16 12:05
[2016-03-25] MEDS: guaiFENesin 200 MG/10 ML 10 ML UNIT-DOSE CUPS PO SCH (22:03)
[2016-03-26] MEDS: PIPERACILLIN/TAZOB 3.375 GM 50 ML IVPB SCH ×3 (03:00→17:37)
[2016-03-26] MEDS: SODIUM CHLORIDE 1,000 ML IV SCH (03:40)
[2016-03-26] MEDS: METOPROLOL TARTRATE 25 MG TABLET (FP) PO SCH ×3 (06:34→21:15)
[2016-03-26] MEDS ORDERED: DOCUSATE SODIUM 100 MG CAPSULE (FP) PO PRN (07:10)
[2016-03-26] MEDS ORDERED: guaiFENesin/D-METHORPHAN HB 10 ML UNIT-DOSE CUPS PO PRN (07:10)
[2016-03-26] MEDS ORDERED: ALBUTEROL SO4 2.5/IPRATROPIUM 0.5 INH SOL 3 ML VIAL.NEB. NEB PRN (07:10)
[2016-03-26] MEDS ORDERED: ACETAMINOPHEN 325 MG TABLET (FP) PO PRN (07:10)
[2016-03-26] MEDS: PANTOPRAZOLE 40 MG TABLET (FP) PO SCH (09:49)
[2016-03-26] MEDS: NYSTATIN/TRIAMCINOLONE TOPICAL CREAM 15 GM TUBE TP SCH ×2 (09:50→21:15)
[2016-03-26] MEDS: BACITRACIN 30 GM TUBE TOPICAL OINTMENT TP SCH (09:51)
[2016-03-26] MEDS: ALBUTEROL SO4 0.083% IH SOL 2.5 MG/3 ML VIAL.NEB. NEB SCH ×2 (10:20→22:05)
[2016-03-26 10:26] LABS: MCH 30.9 pg (25.7-33.7); MCHC 32.4 g/dl (32.0-36.0); MEAN CELL VOLUME 95.2 fl (80-96); MEAN PLT VOLUME 9.7 fl (7.5-11.1); PLATELET COUNT 249 K/MM3 (134-434); RDW 17.5 % (11.6-15.6); WHITE BLOOD COUNT 12.2 K/mm3 (4.0-10.0)
[2016-03-26 10:49] LABS: CALCIUM 8.2 mg/dL (8.5-10.1); GLUCOSE,RANDOM 184 mg/dL (74-106); MAGNESIUM 2.2 mg/dL (1.8-2.4); SGOT/AST 40 U/L (15-37); SGPT/ALT 50 U/L (12-78)
[2016-03-26 10:52] LABS: ALK PHOS 93 U/L (45-117); ANION GAP 5 (8-16); BILIRUBIN,TOTAL 0.7 mg/dL (0.2-1.0); CO2 29 mmol/L (21-32); CREATININE 0.7 mg/dL (0.55-1.02); TOT PROT 5.7 g/dl (6.4-8.2)
--- NOTE | 2016-03-26 10:57 | PN ---
Progress Note (short form) - Note Progress Note: PULMONARY/CCM Pt seen and examined in the ICU. Transferred down for new onset atrial fibrillation with RVR. Now in sinus rhythm. Denies shortness of breath or chest pain per daughter at bedside. No fevers recorded. Last Vital Signs Temp Pulse Resp BP Pulse Ox 98 F 88 21 125/59 96 03/26/16 08:00 03/26/16 08:00 03/26/16 09:00 03/26/16 08:00 03/26/16 09:00 Intake & Output 03/23/16 03/24/16 03/25/16 03/26/16 23:59 23:59 23:59 23:59 Intake Total 100 580 150 150 Output Total 300 900 400 Balance 100 280 -750 -250 Weight 111 lb 2 oz 116 lb 5 oz Gen: mildly tachypneic at rest Heart: tachycardic, regular Lung: scattered rhonchi Abd: soft, nontender Ext: no edema CBC, BMP 03/26/16 10:00 Active Medications Acetaminophen (Tylenol -) 650 mg PO Q6H PRN PRN Reason: FEVER OR PAIN Albuterol Sulfate (Ventolin 0.083% Nebulizer Soln -) 1 amp NEB BID JUAN Albuterol/Ipratropium (Duoneb -) 1 amp NEB Q6H PRN PRN Reason: PAIN Bacitracin (Bacitracin -) 1 applic TP DAILY JUAN Last Admin: 03/26/16 09:51 Dose: 1 applic Diphenhydramine HCl (Benadryl Injection -) 25 mg IVPUSH Q6H-IV JUAN Last Admin: 03/26/16 09:49 Dose: 25 mg Docusate Sodium (Colace -) 100 mg PO TID PRN PRN Reason: CONSTIPATION Guaifenesin (Robitussin -) 10 ml PO HS JUAN Last Admin: 03/25/16 22:03 Dose: 10 ml Guaifenesin (Robitussin Dm -) 5 ml PO Q6H PRN PRN Reason: COUGH Piperacillin Sod/Tazobactam Sod (Zosyn 3.375gm Ivpb (Pre-Docked)) 50 mls @ 100 mls/hr IVPB Q8H-IV JUAN Last Admin: 03/26/16 10:04 Dose: 100 mls/hr Metoprolol Tartrate (Lopressor Injection -) 5 mg IVPUSH Q4H PRN PRN Reason: TACHYCARDIA Last Admin: 03/25/16 12:36 Dose: 5 mg Metoprolol Tartrate (Lopressor -) 37.5 mg PO TID [facility] Last Admin: 03/26/16 06:34 Dose: 37.5 mg Nystatin/Triamcinolone Acetonide (Mycolog Ii Cream -) 1 applic TP BID [facility] Last Admin: 03/26/16 09:50 Dose: 1 applic Pantoprazole Sodium (Protonix -) 40 mg PO DAILY [facility] Last Admin: 03/26/16 09:49 Dose: 40 mg Zinc Acetate/Diphenhydramine (Benadryl 2% Cream) 1 applic TP BID [facility] Last Admin: 03/26/16 09:51 Dose: 1 applic A/P Paroxysmal Atrial Fibrillation now in sinus Pericardial Effusion Early Cardiac Tamponade s/p Pericardial Window LV Systolic Dysfunction Hypoxia resolved HTN Dementia r/o Malignancy - rate controlled on lopressor - anticoagulation if no contraindications - antibiotics per ID - lasix as needed - monitor urine output, creatinine - incentive spirometry - DVT prophylaxis - continue discussions regarding goals of care
--- NOTE | 2016-03-26 11:54 | PN ---
Progress Note, Physician History of Present Illness: Pt seen and examined at bedside. She is back in the ICU. Case discussed with family who are at bedside. - Current Medication List Current Medications: Active Medications Acetaminophen (Tylenol -) 650 mg PO Q6H PRN PRN Reason: FEVER OR PAIN Albuterol Sulfate (Ventolin 0.083% Nebulizer Soln -) 1 amp NEB BID JUAN Albuterol/Ipratropium (Duoneb -) 1 amp NEB Q6H PRN PRN Reason: PAIN Bacitracin (Bacitracin -) 1 applic TP DAILY [facility] Last Admin: 03/26/16 09:51 Dose: 1 applic Diphenhydramine HCl (Benadryl Injection -) 25 mg IVPUSH Q6H-IV [facility] Last Admin: 03/26/16 09:49 Dose: 25 mg Docusate Sodium (Colace -) 100 mg PO TID PRN PRN Reason: CONSTIPATION Guaifenesin (Robitussin -) 10 ml PO HS [facility] Last Admin: 03/25/16 22:03 Dose: 10 ml Guaifenesin (Robitussin Dm -) 5 ml PO Q6H PRN PRN Reason: COUGH Piperacillin Sod/Tazobactam Sod (Zosyn 3.375gm Ivpb (Pre-Docked)) 50 mls @ 100 mls/hr IVPB Q8H-IV [facility] Last Admin: 03/26/16 10:04 Dose: 100 mls/hr Metoprolol Tartrate (Lopressor Injection -) 5 mg IVPUSH Q4H PRN PRN Reason: TACHYCARDIA Last Admin: 03/25/16 12:36 Dose: 5 mg Metoprolol Tartrate (Lopressor -) 37.5 mg PO TID [facility] Last Admin: 03/26/16 06:34 Dose: 37.5 mg Nystatin/Triamcinolone Acetonide (Mycolog Ii Cream -) 1 applic TP BID [facility]UAN Last Admin: 03/26/16 09:50 Dose: 1 applic Pantoprazole Sodium (Protonix -) 40 mg PO DAILY [facility] Last Admin: 03/26/16 09:49 Dose: 40 mg Zinc Acetate/Diphenhydramine (Benadryl 2% Cream) 1 applic TP BID [facility] Last Admin: 03/26/16 09:51 Dose: 1 applic - Objective Vital Signs: Vital Signs Temperature 98 F 03/26/16 08:00 Pulse Rate 88 03/26/16 08:00 Respiratory Rate 21 03/26/16 09:00 Blood Pressure 125/59 03/26/16 08:00 O2 Sat by Pulse Oximetry (%) 96 03/26/16 09:00 Constitutional: Yes: Calm Eyes: Yes: Conjunctiva Clear HENT: Yes: Atraumatic Cardiovascular: Yes: S1, S2 Respiratory: Yes: CTA Bilaterally Gastrointestinal: Yes: Normal Bowel Sounds, Soft Musculoskeletal: Yes: Muscle Weakness Edema: No Neurological: Yes: Oriented Psychiatric: Yes: Oriented Labs: CBC, BMP 03/26/16 10:00 03/26/16 10:00 INR, PTT INR 1.16 (0.82-1.09) H 03/15/16 05:20 Problem List - Problems (1) Hypoxia Code(s): R09.02 - HYPOXEMIA (2) Lethargy Code(s): R53.83 - OTHER FATIGUE (3) Pericardial effusion Code(s): I31.3 - PERICARDIAL EFFUSION (NONINFLAMMATORY) (4) Proteinuria Code(s): R80.9 - PROTEINURIA, UNSPECIFIED (5) Hypertension Code(s): I10 - ESSENTIAL (PRIMARY) HYPERTENSION (6) Skin cancer Code(s): C44.90 - UNSPECIFIED MALIGNANT NEOPLASM OF SKIN, UNSPECIFIED Assessment/Plan Current Medications Generic Name Dose Route Start Last Admin Trade Name Freq PRN Reason Stop Dose Admin Acetaminophen 650 mg 03/26/16 07:10 Tylenol - PO Q6H PRN FEVER OR PAIN Albuterol Sulfate 1 amp 03/26/16 10:00 Ventolin 0.083% Nebulizer Soln - NEB BID JUAN Albuterol/Ipratropium 1 amp 03/26/16 07:10 Duoneb - NEB Q6H PRN PAIN Bacitracin 1 applic 03/26/16 10:00 03/26/16 09:51 Bacitracin - TP 1 applic DAILY JUAN Administration Diphenhydramine HCl 25 mg 03/26/16 09:00 03/26/16 09:49 Benadryl Injection - IVPUSH 25 mg Q6H-IV JUAN Administration Docusate Sodium 100 mg 03/26/16 07:10 Colace - PO TID PRN CONSTIPATION Guaifenesin 10 ml 03/23/16 22:00 03/25/16 22:03 Robitussin - PO 10 ml HS JUAN Administration Guaifenesin 5 ml 03/26/16 07:10 Robitussin Dm - PO Q6H PRN COUGH Piperacillin Sod/Tazobactam Sod 50 mls @ 100 mls/hr 03/24/16 02:00 03/26/16 10: 04 Zosyn 3.375gm Ivpb (Pre-Docked) IVPB 100 mls/hr Q8H-IV JUAN Administration Metoprolol Tartrate 5 mg 03/23/16 09:00 03/25/16 12:36 Lopressor Injection - IVPUSH 5 mg Q4H PRN Administration TACHYCARDIA Metoprolol Tartrate 37.5 mg 03/25/16 22:00 03/26/16 06:34 Lopressor - PO 37.5 mg TID JUAN Administration Nystatin/Triamcinolone Acetonide 1 applic 03/26/16 10:00 03/26/16 09:50 Mycolog Ii Cream - TP 1 applic BID JUAN Administration Pantoprazole Sodium 40 mg 03/26/16 10:00 03/26/16 09:49 Protonix - PO 40 mg DAILY JUAN Administration Zinc Acetate/Diphenhydramine 1 applic 03/26/16 10:00 03/26/16 09:51 Benadryl 2% Cream TP 1 applic BID JUAN Administration Impression 1. pericardial effusion 2. hypoxia 3. proteinuria 4. HTN 5. skin cancer 6. congestion on cxr 7. s/p fall and laceration to head 8. hyperkalemia 9. azotemia Plan - renal function is stabilized - follow repeat echo - will discuss with cardio - cont current management - lasix PRN - repeat cxr in am - discussed plan with pts daughter - potassium is stable - will follow PRN Dr Ruth
--- NOTE | 2016-03-26 12:26 | PN ---
Progress Note (short form) - Note Progress Note: CC: pericardial effusion s: Progressive weakness. Significant diffuse abdominal pain. Oral pain. + nausea, unable to eat. + cough persists. no sob cp dizzy--family translating. o: Current Medications Acetaminophen (Tylenol -) 650 mg PO Q6H PRN PRN Reason: FEVER OR PAIN Albuterol Sulfate (Ventolin 0.083% Nebulizer Soln -) 1 amp NEB BID JUAN Albuterol/Ipratropium (Duoneb -) 1 amp NEB Q6H PRN PRN Reason: PAIN Bacitracin (Bacitracin -) 1 applic TP DAILY [facility] Last Admin: 03/26/16 09:51 Dose: 1 applic Diphenhydramine HCl (Benadryl Injection -) 25 mg IVPUSH Q6H-IV [facility] Last Admin: 03/26/16 09:49 Dose: 25 mg Docusate Sodium (Colace -) 100 mg PO TID PRN PRN Reason: CONSTIPATION Guaifenesin (Robitussin -) 10 ml PO HS [facility] Last Admin: 03/25/16 22:03 Dose: 10 ml Guaifenesin (Robitussin Dm -) 5 ml PO Q6H PRN PRN Reason: COUGH Piperacillin Sod/Tazobactam Sod (Zosyn 3.375gm Ivpb (Pre-Docked)) 50 mls @ 100 mls/hr IVPB Q8H-IV [facility] Last Admin: 03/26/16 10:04 Dose: 100 mls/hr Metoprolol Tartrate (Lopressor Injection -) 5 mg IVPUSH Q4H PRN PRN Reason: TACHYCARDIA Last Admin: 03/25/16 12:36 Dose: 5 mg Metoprolol Tartrate (Lopressor -) 37.5 mg PO TID [facility] Last Admin: 03/26/16 06:34 Dose: 37.5 mg Nystatin/Triamcinolone Acetonide (Mycolog Ii Cream -) 1 applic TP BID [facility] Last Admin: 03/26/16 09:50 Dose: 1 applic Pantoprazole Sodium (Protonix -) 40 mg PO DAILY [facility] Last Admin: 03/26/16 09:49 Dose: 40 mg Zinc Acetate/Diphenhydramine (Benadryl 2% Cream) 1 applic TP BID [facility] Last Admin: 03/26/16 09:51 Dose: 1 applic Vital Signs - 24 hr 03/25/16 03/25/16 03/25/16 12:36 13:00 14:00 Temperature Pulse Rate 144 H 123 H 148 H Respiratory 25 H 28 H Rate Blood Pressure 123/76 113/81 144/74 O2 Sat by Pulse Oximetry (%) 03/25/16 03/25/16 03/25/16 15:02 16:00 16:46 Temperature 99.8 F H Pulse Rate 92 H 86 86 Respiratory 28 H 24 Rate Blood Pressure 112/62 118/62 O2 Sat by Pulse 100 Oximetry (%) 03/25/16 03/25/16 03/25/16 17:00 17:57 20:00 Temperature Pulse Rate 88 88 92 H Respiratory 28 H 28 H 22 Rate Blood Pressure 103/69 113/75 125/83 O2 Sat by Pulse Oximetry (%) 03/25/16 03/25/16 03/25/16 21:00 22:00 22:56 Temperature 99 F Pulse Rate 91 H Respiratory 31 H Rate Blood Pressure 138/65 O2 Sat by Pulse 95 95 Oximetry (%) 03/25/16 03/26/16 03/26/16 22:57 00:10 02:00 Temperature 98.4 F Pulse Rate 93 H 81 88 Respiratory 27 H 18 Rate Blood Pressure 121/68 126/69 O2 Sat by Pulse 95 Oximetry (%) 03/26/16 03/26/16 03/26/16 05:00 06:59 08:00 Temperature 98.6 F 98 F Pulse Rate 99 H 85 88 Respiratory 27 H 31 H 21 Rate Blood Pressure 128/63 125/58 125/59 O2 Sat by Pulse Oximetry (%) 03/26/16 09:00 Temperature Pulse Rate Respiratory 21 Rate Blood Pressure O2 Sat by Pulse 96 Oximetry (%) Intake & Output 03/24/16 03/25/16 03/26/16 03/27/16 07:59 07:59 07:59 07:59 Intake Total 300 380 300 Output Total 700 900 Balance 300 -320 -600 Weight 111 lb 2 oz 116 lb 5 oz Constitutional: Yes: No Distress, Calm Eyes: No: Sclera Icterus Cardiovascular: Yes: rrr, + jvd vs prominent v wave, nl S1, S2,. No: Gallop, Murmur, Rub Respiratory: Yes: scattered rhonchi; No: Accessory Muscle Use, Rales, Wheezes Gastrointestinal: Yes: Normal Bowel Sounds, Soft. + tenderness Extremities: No: Cold Edema: No Integumentary: No: Jaundice diaphoresis Neurological: Yes: Alert. Psychiatric: No: Agitated CBC, BMP 03/26/16 10:00 03/26/16 10:00 Repeat chest/abd CT 03/24: Small subpleural infiltrates, rt basilar and lingular infiltrate. Small-mod pleural effusion. small-moderate pericardial effusion. No abdominal pathology. Echo 03/09/16 : mod-sev dec lvef, inf wall hk, nl rv, mild lae, mild mr/tr, moderate pericardial eff, ?impending tamponade based on ra wall collapse Repeat echo 03/12/16: mild con LVH. mod-sev depressed LV sys func (global), 1+ MR/TR, effusion unchanged, still with early diastolic RA collapse. repeat echo 03/21/16: sev dec lvef, nl rv, mild piotr, mild mr, mod-sev tr, rvsp 40-50, trivial pericardial eff, no signs tamponade tele: sr now, occ pvc's, trigeminy. a/p: 75 f (she is 83 according to family) with hx htn, h/o [place] x 2, dementia and possible recent diagnosis of cancer (unknown type), here with lethargy, weakness found to have systolic cardiomyopathy and pericardial effusion. pericardial effusion, possible acute pericarditis: -presented with moderate circumferential pericardial eff present but no signs of tamponade. clinically no signs of tamponade as well. -no obvious pericarditis, initially treated empirically with colchicine/ indomethacin but then renal fcn had worsened a little so they have been stopped -hemodynamically stable throughout, with no clinical tamponade -s/p pericardial window 03/16 (diagnostic as well) with 500 cc non-bloody fluid removed. pericardial fluid cultures, cytology pending. -repeat echo shows resolution of eff, but evidence of reaccumulation on 03/24 CT scan with symptoms of nausea. Would not diurese further. - 1/2: hemodynamically stable, can hold off on repeat echo for now. syst chf: -echo here shows mod-sev decreased lvef with inferior hypokinesis, patient with h/o prior [place]--followed by doctors in [place] where she lives, per dtr (here visiting) -cont bb, bp too low for marian-i -no angina or other signs acs, ce's negx3, ecg w/o ischemic changes or significant q waves -03/12: clinically no definite chf, exam equiovocal for JVD--monitor closely with IVF. - 03/13: Now off IVF. CXR with new rt pleural effusion. No change in effusion size or hemodynamics with IVF. gentle diuresis as mentioned above. Strict I/O' s, daily weights. -03/14-: no signs chf on exam/cxr. cont to hold lasix and ivfs for now -will defer ? of need for ischemia eval to [place] doctors (dtr states pt plans to return as soon as medically stable)--? LV dysfxn is chronic and stable -low dose BB trial as doing. ACEI trial (2.5 mg) given 03/19 but dropped blood pressures. -03/20: Bp trending down s/p lasix and lisinopril yesterday evening. will hold dose this morning. Consider resuming again tomorrow if bp remains stable. WBC rising and cough worsening. Would repeat chest CT. -03/21: still with some chf on imaging and pericardial effusion improved (small on ct chest) so will give iv lasix dose today to help with congestion. -03/22: still with some chf on cxr so agree with 40 iv lasix dose today to help with congestion. -03/23-03/24: developing signs of infection (possible multifocal pna), poor po intake. Holding diuretics. Maintenance fluids today 03/24. Continue daily weights. -03/25-03/26: BP improved signifcantly on antibiotics. Con't to hold diuresis. svt/PAT: -has had periodically during admit here but worse overnight. no obvious afib, cont to monitor on tele. -lopressor was increased from bid to tid, cont 25 tid for now - ?infectious etiology driving HR up vs. effusion. Patient with significant oral pain and abdominal pain, PNA on CT. Mgm't of infection per ID. Con't BB ( uptitrated 03/25), maintenance fluids if hypotensive. lethargy/weakness: -head ct w/o acute findings. likely 2/2 to aforementioned acute illnesses. htn: - cont bb. elevated trop: -trop borderline elevated (peak 0.28) the day after episode of prolonged SVT/ fever. Nl ck, no ischemic changes on ecgs. likely due to demand ischemia from svt overnight in setting of known CAD. Troponin now trending down. No signs of acs presently
--- NOTE | 2016-03-26 12:32 | PN ---
Physical Exam: SUBJECTIVE: Patient seen and examined at bedside. Daughter present. Very weak. Opens eyes, follows commands, says a few words. OBJECTIVE: Vital Signs Period Temp Pulse Resp BP Sys/[place]ford Pulse Ox Last 24 Hr 98 F-99.8 F 81-148 18-31 103-144/58-83 95-100 GENERAL: The patient is awake. Weak. Follows commands. Speaks a few words. HEAD: Resolving periorbital and facial ecchymoses EYES: PERRL, sclera anicteric, conjunctiva clear. No ptosis. LUNGS: Diffuse crackles, + productive cough HEART: Regular rate and rhythm, S1, S2 ABDOMEN: Mild RLQ tenderness. EXTREMITIES: 2+ pulses, warm, well-perfused, no edema. 4cm tumorous growth RLE. NEUROLOGICAL: Cranial nerves II through XII grossly intact. Laboratory Results - last 24 hr 03/25/16 03/25/16 03/25/16 10:00 12:05 12:05 WBC RBC Hgb Hct MCV MCHC RDW Plt Count MPV Neutrophils % 75.0 D Lymphocytes % 7.0 L D Monocytes % 9.0 Eosinophils % 4.0 Basophils % 2.0 D Band Neutrophils 2.0 D Basophilic Stippling Occ Sodium 143 Potassium 4.2 Chloride 107 Carbon Dioxide 29 Anion Gap 7 L BUN 18 Creatinine 0.6 Creat Clearance w eGFR > 60 Random Glucose 135 H Calcium 8.1 L Phosphorus Magnesium 2.3 Total Bilirubin 0.4 AST 25 ALT 34 Alkaline Phosphatase 98 Creatine Kinase Troponin I B-Natriuretic Peptide Cancelled 6152.20 H Total Protein 5.9 L Albumin 2.1 L 03/25/16 03/25/16 03/25/16 12:05 12:22 16:20 WBC RBC Hgb Hct MCV MCHC RDW Plt Count MPV Neutrophils % Lymphocytes % Monocytes % Eosinophils % Basophils % Band Neutrophils Basophilic Stippling Sodium Potassium Chloride Carbon Dioxide Anion Gap BUN Creatinine Creat Clearance w eGFR Random Glucose Calcium Phosphorus Magnesium Total Bilirubin AST ALT Alkaline Phosphatase Creatine Kinase 11 L Troponin I 0.09 0.09 H 0.07 H B-Natriuretic Peptide Total Protein Albumin 03/25/16 03/26/16 03/26/16 23:10 10:00 10:00 WBC 12.2 H RBC 3.55 L Hgb 11.0 Hct 33.8 MCV 95.2 MCHC 32.4 RDW 17.5 H Plt Count 249 MPV 9.7 Neutrophils % 78.4 Lymphocytes % 6.7 L Monocytes % 10.0 Eosinophils % 4.4 Basophils % 0.5 Band Neutrophils Basophilic Stippling Sodium 139 Potassium 4.4 Chloride 105 Carbon Dioxide 29 Anion Gap 5 L BUN 15 Creatinine 0.7 Creat Clearance w eGFR > 60 Random Glucose 184 H D Calcium 8.2 L Phosphorus 3.0 Magnesium 2.2 Total Bilirubin 0.7 D AST 40 H D ALT 50 D Alkaline Phosphatase 93 Creatine Kinase Troponin I 0.07 H B-Natriuretic Peptide Total Protein 5.7 L Albumin 2.0 L Active Medications Generic Name Dose Route Start Last Admin Trade Name Freq PRN Reason Stop Dose Admin Acetaminophen 650 mg 03/26/16 07:10 Tylenol - PO Q6H PRN FEVER OR PAIN Albuterol Sulfate 1 amp 03/26/16 10:00 Ventolin 0.083% Nebulizer Soln - NEB BID JUAN Albuterol/Ipratropium 1 amp 03/26/16 07:10 Duoneb - NEB Q6H PRN PAIN Bacitracin 1 applic 03/26/16 10:00 03/26/16 09:51 Bacitracin - TP 1 applic DAILY [facility] Administration Diphenhydramine HCl 25 mg 03/26/16 09:00 03/26/16 09:49 Benadryl Injection - IVPUSH 25 mg Q6H-IV JUAN Administration Docusate Sodium 100 mg 03/26/16 07:10 Colace - PO TID PRN CONSTIPATION Guaifenesin 10 ml 03/23/16 22:00 03/25/16 22:03 Robitussin - PO 10 ml HS JUAN Administration Guaifenesin 5 ml 03/26/16 07:10 Robitussin Dm - PO Q6H PRN COUGH Piperacillin Sod/Tazobactam Sod 50 mls @ 100 mls/hr 03/24/16 02:00 03/26/16 10: 04 Zosyn 3.375gm Ivpb (Pre-Docked) IVPB 100 mls/hr Q8H-IV [facility] Administration Metoprolol Tartrate 5 mg 03/23/16 09:00 03/25/16 12:36 Lopressor Injection - IVPUSH 5 mg Q4H PRN Administration TACHYCARDIA Metoprolol Tartrate 37.5 mg 03/25/16 22:00 03/26/16 06:34 Lopressor - PO 37.5 mg TID JUAN Administration Nystatin/Triamcinolone Acetonide 1 applic 03/26/16 10:00 03/26/16 09:50 Mycolog Ii Cream - TP 1 applic BID JUAN Administration Pantoprazole Sodium 40 mg 03/26/16 10:00 03/26/16 09:49 Protonix - PO 40 mg DAILY [facility] Administration Zinc Acetate/Diphenhydramine 1 applic 03/26/16 10:00 03/26/16 09:51 Benadryl 2% Cream TP 1 applic BID JUAN Administration ASSESSMENT/PLAN: This is hospital day #17, POD #11 for this 75 year-old female with PMH of HTN, [place] x2, pericardial effusion s/p pericardial window on 03/15. Prolonged hopsital course. Back in ICU after episode of tachycardia/rapid afib yesterday. Multilobar pneumonia. Discussion of goals of care with daughter. Moderate pericardial effusion Severe sytolic heart failure --s/p pericardial window 03/15, today is POD #10; fungal culture pending, cytology pending --03/24 CT chest showed moderate pericardial effusion; echo on 03/21 had shown only trivial pericardial effusion; this was discussed with Dr. Rasheed yesterday. He reviewed images and states there is very little if any change since window placed, no indication for intervention, no need to repeat echo Severe sepsis Multilobar pneumonia --Tm 99.9, Tc 98.6 WBC 12.2 --hemodynamically stable --cultures negative to date --continue Zosyn (day #4) --ID following Lactic acidosis, resolved Cholelithiasis --no sign of cholelithiasis Elevated troponins --remain mildly elevated but flat trending --likely secondary to infectious process/demand ischemia Soft tissue facial injuries s/p mechanical fall, resolving r/o malignancy --imaging from [facility] showed lytic lesions throughout the calvarium and the cervical spine; 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 Executed HCP and DNR/DNI. Orders entered. Visit type - Emergency Visit Emergency Visit: Yes ED Registration Date: 03/09/16 Care time: The patient presented to the Emergency Department on the above date and was hospitalized for further evaluation of their emergent condition. - New Patient This patient is new to me today: No - Critical Care Critical Care patient: Yes Total Critical Care Time (in minutes): 45 Critical Care Statement: The care of this patient involved high complexity decision making to prevent further life threatening deterioration of the patient 's condition and/or to evalute & treat vital organ system(s) failure or risk of failure.
[2016-03-26 15:13] LABS: PLATELET ESTIMATE ADEQUATE (NORMAL)
[2016-03-26] MEDS: guaiFENesin 200 MG/10 ML 10 ML UNIT-DOSE CUPS PO SCH (21:17)
[2016-03-27] MEDS: PIPERACILLIN/TAZOB 3.375 GM 50 ML IVPB SCH ×3 (02:55→17:07)
[2016-03-27 05:43] LABS: MCH 30.2 pg (25.7-33.7); MCHC 32.1 g/dl (32.0-36.0); MEAN CELL VOLUME 94.2 fl (80-96); MEAN PLT VOLUME 9.9 fl (7.5-11.1); PLATELET COUNT 275 K/MM3 (134-434); RDW 17.4 % (11.6-15.6); WHITE BLOOD COUNT 14.3 K/mm3 (4.0-10.0)
[2016-03-27 06:00] LABS: ANION GAP 5 (8-16); CALCIUM 8.1 mg/dL (8.5-10.1); CO2 30 mmol/L (21-32); GLUCOSE,RANDOM 133 mg/dL (74-106); MAGNESIUM 2.1 mg/dL (1.8-2.4)
[2016-03-27 06:03] LABS: ALK PHOS 85 U/L (45-117); BILIRUBIN,TOTAL 0.5 mg/dL (0.2-1.0); CREATININE 0.6 mg/dL (0.55-1.02); PHOSPHOROUS 3.5 mg/dL (2.5-4.9); SGOT/AST 66 U/L (15-37); SGPT/ALT 86 U/L (12-78); TOT PROT 5.7 g/dl (6.4-8.2)
[2016-03-27] MEDS: METOPROLOL TARTRATE 25 MG TABLET (FP) PO SCH ×3 (06:21→21:48)
[2016-03-27 07:44] LABS: METAMYELOCYTE 2 % (0-2); PLATELET COMMENT2 NO CLOTTING DETECTED; PLATELET COMMENT3 FEW GIANT PLTS; PLATELET ESTIMATE ADEQUATE (NORMAL); SMUDGE CELLS FEW
[2016-03-27 07:45] LABS: ANISOCYTOSIS 2+; HYPOCHROMIA 1+; MICROCYTOSIS 1+; POIKILOCYTOSIS 2+; POLYCHROMASIA 1+
[2016-03-27] MEDS: PANTOPRAZOLE 40 MG TABLET (FP) PO SCH (09:24)
[2016-03-27] MEDS: NYSTATIN/TRIAMCINOLONE TOPICAL CREAM 15 GM TUBE TP SCH ×2 (09:25→22:12)
[2016-03-27] MEDS: BACITRACIN 30 GM TUBE TOPICAL OINTMENT TP SCH (09:26)
--- NOTE | 2016-03-27 09:43 | PN ---
Progress Note (short form) - Note Progress Note: CC: pericardial effusion s: + weakness. Abdominal pain seems improved but persists. Oral pain. still minimal PO. + cough persists, but improved. no sob cp dizzy, but no copy director so ROS may not be accurate. o: Current Medications Acetaminophen (Tylenol -) 650 mg PO Q6H PRN PRN Reason: FEVER OR PAIN Albuterol Sulfate (Ventolin 0.083% Nebulizer Soln -) 1 amp NEB BID [facility] Last Admin: 03/26/16 22:05 Dose: 1 amp Albuterol/Ipratropium (Duoneb -) 1 amp NEB Q6H PRN PRN Reason: PAIN Bacitracin (Bacitracin -) 1 applic TP DAILY [facility] Last Admin: 03/27/16 09:26 Dose: 1 applic Diphenhydramine HCl (Benadryl Injection -) 25 mg IVPUSH Q6H-IV [facility] Last Admin: 03/27/16 09:29 Dose: Not Given Docusate Sodium (Colace -) 100 mg PO TID PRN PRN Reason: CONSTIPATION Guaifenesin (Robitussin -) 10 ml PO HS [facility] Last Admin: 03/26/16 21:17 Dose: 10 ml Guaifenesin (Robitussin Dm -) 5 ml PO Q6H PRN PRN Reason: COUGH Piperacillin Sod/Tazobactam Sod (Zosyn 3.375gm Ivpb (Pre-Docked)) 50 mls @ 100 mls/hr IVPB Q8H-IV [facility] Last Admin: 03/27/16 09:24 Dose: 100 mls/hr Metoprolol Tartrate (Lopressor Injection -) 5 mg IVPUSH Q4H PRN PRN Reason: TACHYCARDIA Last Admin: 03/25/16 12:36 Dose: 5 mg Metoprolol Tartrate (Lopressor -) 37.5 mg PO TID [facility] Last Admin: 03/27/16 06:21 Dose: 37.5 mg Nystatin/Triamcinolone Acetonide (Mycolog Ii Cream -) 1 applic TP BID [facility] Last Admin: 03/27/16 09:25 Dose: 1 applic Pantoprazole Sodium (Protonix -) 40 mg PO DAILY [facility] Last Admin: 03/27/16 09:24 Dose: 40 mg Zinc Acetate/Diphenhydramine (Benadryl 2% Cream) 1 applic TP BID [facility] Last Admin: 03/27/16 09:26 Dose: 1 applic Vital Signs - 24 hr 03/26/16 03/26/16 03/26/16 10:00 12:00 14:00 Temperature 98.2 F Pulse Rate 84 88 80 Respiratory 16 18 18 Rate Blood Pressure 119/55 108/52 112/61 O2 Sat by Pulse Oximetry (%) 03/26/16 03/26/16 03/26/16 16:00 17:46 18:00 Temperature 98.4 F Pulse Rate 77 83 Respiratory 16 16 Rate Blood Pressure 114/62 121/60 O2 Sat by Pulse 96 Oximetry (%) 03/26/16 03/26/16 03/26/16 20:00 20:54 22:00 Temperature 98 F Pulse Rate 80 85 Respiratory 18 16 18 Rate Blood Pressure 105/60 118/59 O2 Sat by Pulse 96 96 Oximetry (%) 03/27/16 03/27/16 03/27/16 00:00 02:00 04:00 Temperature 99.2 F Pulse Rate 78 84 94 H Respiratory 18 18 18 Rate Blood Pressure 116/68 110/57 122/59 O2 Sat by Pulse Oximetry (%) 03/27/16 03/27/16 06:00 08:00 Temperature 99 F Pulse Rate 84 77 Respiratory 18 20 Rate Blood Pressure 124/74 127/58 O2 Sat by Pulse Oximetry (%) Intake & Output 03/25/16 03/26/16 03/27/16 03/28/16 07:59 07:59 07:59 07:59 Intake Total 235 760 1325 Output Total 700 900 950 Balance -320 -600 50 Weight 116 lb 5 oz 103 lb Constitutional: Yes: No Distress, Calm Eyes: No: Sclera Icterus Cardiovascular: Yes: rrr, + jvd vs prominent v wave, nl S1, S2,. No: Gallop, Murmur, Rub Respiratory: Yes: bibasilar dullness; No: Accessory Muscle Use, Rales, Wheezes Gastrointestinal: Yes: Normal Bowel Sounds, Soft. + tenderness Extremities: No: Cold Edema: No Integumentary: No: Jaundice diaphoresis Neurological: Yes: Alert. Psychiatric: No: Agitated CBC, BMP 03/27/16 05:00 03/27/16 05:00 Laboratory Tests 03/27/16 03/27/16 05:00 05:00 Band Neutrophils 9.0 Total Bilirubin 0.5 D AST 66 H D ALT 86 H D Alkaline Phosphatase 85 Albumin 2.0 L Repeat chest/abd CT 03/24: Small subpleural infiltrates, rt basilar and lingular infiltrate. Small-mod pleural effusion. small-moderate pericardial effusion. No abdominal pathology. Echo 03/09/16 : mod-sev dec lvef, inf wall hk, nl rv, mild lae, mild mr/tr, moderate pericardial eff, ?impending tamponade based on ra wall collapse Repeat echo 03/12/16: mild con LVH. mod-sev depressed LV sys func (global), 1+ MR/TR, effusion unchanged, still with early diastolic RA collapse. repeat echo 03/21/16: sev dec lvef, nl rv, mild piotr, mild mr, mod-sev tr, rvsp 40-50, trivial pericardial eff, no signs tamponade tele: sr now, occ pvc's, trigeminy. a/p: 75 f (she is 83 according to family) with hx htn, h/o [place] x 2, dementia and possible recent diagnosis of cancer (unknown type), here with lethargy, weakness found to have systolic cardiomyopathy and pericardial effusion. pericardial effusion, possible acute pericarditis: -presented with moderate circumferential pericardial eff present but no signs of tamponade. clinically no signs of tamponade as well. -no obvious pericarditis, initially treated empirically with colchicine/ indomethacin but then renal fcn had worsened a little so they have been stopped -hemodynamically stable throughout, with no clinical tamponade -s/p pericardial window 03/16 (diagnostic as well) with 500 cc non-bloody fluid removed. pericardial fluid cultures, cytology pending. -repeat echo shows resolution of eff, but evidence of reaccumulation on 03/24 CT scan with symptoms of nausea. Would not diurese further. - 1/2: hemodynamically stable, bp improving. - 3: hemodynamically stable, bp normalized. Volume up today so will diurese. If bp drops, will plan on repeat echo to evaluate effusion. syst chf: -echo here shows mod-sev decreased lvef with inferior hypokinesis, patient with h/o prior [place]--followed by doctors in [place] where she lives, per dtr (here visiting) -cont bb, bp too low for marian-i -no angina or other signs acs, ce's negx3, ecg w/o ischemic changes or significant q waves -03/12: clinically no definite chf, exam equiovocal for JVD--monitor closely with IVF. - 03/13: Now off IVF. CXR with new rt pleural effusion. No change in effusion size or hemodynamics with IVF. gentle diuresis as mentioned above. Strict I/O' s, daily weights. -03/14-: no signs chf on exam/cxr. cont to hold lasix and ivfs for now -will defer ? of need for ischemia eval to [place] doctors (dtr states pt plans to return as soon as medically stable)--? LV dysfxn is chronic and stable -low dose BB trial as doing. ACEI trial (2.5 mg) given 03/19 but dropped blood pressures. -03/20: Bp trending down s/p lasix and lisinopril yesterday evening. will hold dose this morning. Consider resuming again tomorrow if bp remains stable. WBC rising and cough worsening. Would repeat chest CT. -03/21: still with some chf on imaging and pericardial effusion improved (small on ct chest) so will give iv lasix dose today to help with congestion. -03/22: still with some chf on cxr so agree with 40 iv lasix dose today to help with congestion. -03/23-03/24: developing signs of infection (possible multifocal pna), poor po intake. Holding diuretics. Maintenance fluids today 03/24. Continue daily weights. -03/25-03/26: BP improved signifcantly on antibiotics. Con't to hold diuresis. - 03/27: Volume up today, will give trial dose of lasix 20 mg IV x 1. svt/PAT: -has had periodically during admit here but worse overnight. no obvious afib, cont to monitor on tele. -lopressor was increased from bid to tid, cont 25 tid for now - ?infectious etiology driving HR up vs. effusion. Patient with significant oral pain and abdominal pain, PNA on CT. Mgm't of infection per ID. Con't BB ( uptitrated 03/25), lethargy/weakness: -head ct w/o acute findings. likely 2/2 to aforementioned acute illnesses. htn: - cont bb. elevated trop: -trop borderline elevated (peak 0.28) the day after episode of prolonged SVT/ fever. Nl ck, no ischemic changes on ecgs. likely due to demand ischemia from svt overnight in setting of known CAD. Troponin now trending down. No signs of acs presently
[2016-03-27] MEDS ORDERED: FUROSEMIDE 40 MG/4 ML INJECTABLE VIAL IVPUSH ONE (09:45)
--- NOTE | 2016-03-27 10:01 | PN ---
Progress Note (short form) - Note Progress Note: CT Progress Note: CT scan reviewed. NO recurrence of significant effusion and first effusion was clinically insignificant as well (there was no tamponade on echo and no hemodynamic change after drainage with a-line in). Goals of care and workup of malignancy need to be addressed. Please reconsult prn.
[2016-03-27] MEDS: ALBUTEROL SO4 0.083% IH SOL 2.5 MG/3 ML VIAL.NEB. NEB SCH ×2 (10:25→22:00)
--- NOTE | 2016-03-27 11:33 | PN ---
Teaching Attending Note Name of Resident: Dajuan Gerber ATTENDING PHYSICIAN STATEMENT I saw and evaluated the patient. I reviewed the resident's note and discussed the case with the resident. I agree with the resident's findings and plan as documented. SUBJECTIVE: Pt seen and examined in the ICU. Appears comfortable. No fevers recorded. OBJECTIVE: Last Vital Signs Temp Pulse Resp BP Pulse Ox 98.8 F 80 16 90/53 96 03/27/16 10:00 03/27/16 10:00 03/27/16 10:00 03/27/16 10:00 03/26/16 20:54 Intake & Output 03/24/16 03/25/16 03/26/16 03/27/16 23:59 23:59 23:59 23:59 Intake Total 580 150 750 400 Output Total 300 900 700 650 Balance 280 -750 50 -250 Weight 111 lb 2 oz 116 lb 5 oz 103 lb Gen: NAD at rest Heart: RRR Lung: decreased breath sounds at the bases Abd: soft, nontender Ext: no edema CBC, BMP 03/27/16 05:00 03/27/16 05:00 Active Medications Acetaminophen (Tylenol -) 650 mg PO Q6H PRN PRN Reason: FEVER OR PAIN Albuterol Sulfate (Ventolin 0.083% Nebulizer Soln -) 1 amp NEB BID JUAN Last Admin: 03/26/16 22:05 Dose: 1 amp Albuterol/Ipratropium (Duoneb -) 1 amp NEB Q6H PRN PRN Reason: PAIN Bacitracin (Bacitracin -) 1 applic TP DAILY JUAN Last Admin: 03/27/16 09:26 Dose: 1 applic Diphenhydramine HCl (Benadryl Injection -) 25 mg IVPUSH Q6H-IV JUAN Last Admin: 03/27/16 09:29 Dose: Not Given Docusate Sodium (Colace -) 100 mg PO TID PRN PRN Reason: CONSTIPATION Guaifenesin (Robitussin -) 10 ml PO HS JUAN Last Admin: 03/26/16 21:17 Dose: 10 ml Guaifenesin (Robitussin Dm -) 5 ml PO Q6H PRN PRN Reason: COUGH Piperacillin Sod/Tazobactam Sod (Zosyn 3.375gm Ivpb (Pre-Docked)) 50 mls @ 100 mls/hr IVPB Q8H-IV [facility] Last Admin: 03/27/16 09:24 Dose: 100 mls/hr Metoprolol Tartrate (Lopressor Injection -) 5 mg IVPUSH Q4H PRN PRN Reason: TACHYCARDIA Last Admin: 03/25/16 12:36 Dose: 5 mg Metoprolol Tartrate (Lopressor -) 37.5 mg PO TID [facility] Last Admin: 03/27/16 06:21 Dose: 37.5 mg Nystatin/Triamcinolone Acetonide (Mycolog Ii Cream -) 1 applic TP BID [facility] Last Admin: 03/27/16 09:25 Dose: 1 applic Pantoprazole Sodium (Protonix -) 40 mg PO DAILY [facility] Last Admin: 03/27/16 09:24 Dose: 40 mg Zinc Acetate/Diphenhydramine (Benadryl 2% Cream) 1 applic TP BID [facility] Last Admin: 03/27/16 09:26 Dose: 1 applic ASSESSMENT AND PLAN: Paroxysmal Atrial Fibrillation now in sinus Pericardial Effusion Early Cardiac Tamponade s/p Pericardial Window LV Systolic Dysfunction Hypoxia resolved HTN Dementia r/o Malignancy - rate controlled on lopressor - anticoagulation if no contraindications - consider monitoring off antibiotics as pt afebrile and no obvious source of infection - lasix as needed - monitor urine output, creatinine - incentive spirometry - DVT prophylaxis - continue discussions regarding goals of care - can monitor on telemetry
--- NOTE | 2016-03-27 12:11 | PN ---
Progress Note, Physician History of Present Illness: Pt seen and examined at bedside. She is restless today. - Current Medication List Current Medications: Active Medications Acetaminophen (Tylenol -) 650 mg PO Q6H PRN PRN Reason: FEVER OR PAIN Albuterol Sulfate (Ventolin 0.083% Nebulizer Soln -) 1 amp NEB BID [facility] Last Admin: 03/27/16 10:25 Dose: 1 amp Albuterol/Ipratropium (Duoneb -) 1 amp NEB Q6H PRN PRN Reason: PAIN Bacitracin (Bacitracin -) 1 applic TP DAILY [facility] Last Admin: 03/27/16 09:26 Dose: 1 applic Diphenhydramine HCl (Benadryl Injection -) 25 mg IVPUSH Q6H-IV [facility] Last Admin: 03/27/16 09:29 Dose: Not Given Docusate Sodium (Colace -) 100 mg PO TID PRN PRN Reason: CONSTIPATION Guaifenesin (Robitussin -) 10 ml PO HS [facility] Last Admin: 03/26/16 21:17 Dose: 10 ml Guaifenesin (Robitussin Dm -) 5 ml PO Q6H PRN PRN Reason: COUGH Piperacillin Sod/Tazobactam Sod (Zosyn 3.375gm Ivpb (Pre-Docked)) 50 mls @ 100 mls/hr IVPB Q8H-IV [facility] Last Admin: 03/27/16 09:24 Dose: 100 mls/hr Metoprolol Tartrate (Lopressor Injection -) 5 mg IVPUSH Q4H PRN PRN Reason: TACHYCARDIA Last Admin: 03/25/16 12:36 Dose: 5 mg Metoprolol Tartrate (Lopressor -) 37.5 mg PO TID [facility] Last Admin: 03/27/16 06:21 Dose: 37.5 mg Nystatin/Triamcinolone Acetonide (Mycolog Ii Cream -) 1 applic TP BID [facility] Last Admin: 03/27/16 09:25 Dose: 1 applic Pantoprazole Sodium (Protonix -) 40 mg PO DAILY [facility] Last Admin: 03/27/16 09:24 Dose: 40 mg Zinc Acetate/Diphenhydramine (Benadryl 2% Cream) 1 applic TP BID [facility] Last Admin: 03/27/16 09:26 Dose: 1 applic - Objective Vital Signs: Vital Signs Temperature 98.8 F 03/27/16 10:00 Pulse Rate 87 03/27/16 11:46 Respiratory Rate 16 03/27/16 10:00 Blood Pressure 90/53 03/27/16 10:00 O2 Sat by Pulse Oximetry (%) 93 L 03/27/16 11:46 Constitutional: Yes: Anxious Eyes: Yes: Conjunctiva Clear HENT: Yes: Atraumatic Cardiovascular: Yes: S1, S2 Respiratory: Yes: Diminished, On Nasal O2 Gastrointestinal: Yes: Soft Genitourinary: Yes: WNL Musculoskeletal: Yes: Muscle Weakness Edema: No Neurological: Yes: Oriented Labs: CBC, BMP 03/27/16 05:00 03/27/16 05:00 INR, PTT INR 1.16 (0.82-1.09) H 03/15/16 05:20 Problem List - Problems (1) Hypoxia Code(s): R09.02 - HYPOXEMIA (2) Lethargy Code(s): R53.83 - OTHER FATIGUE (3) Pericardial effusion Code(s): I31.3 - PERICARDIAL EFFUSION (NONINFLAMMATORY) (4) Proteinuria Code(s): R80.9 - PROTEINURIA, UNSPECIFIED (5) Hypertension Code(s): I10 - ESSENTIAL (PRIMARY) HYPERTENSION (6) Skin cancer Code(s): C44.90 - UNSPECIFIED MALIGNANT NEOPLASM OF SKIN, UNSPECIFIED Assessment/Plan Current Medications Generic Name Dose Route Start Last Admin Trade Name Freq PRN Reason Stop Dose Admin Acetaminophen 650 mg 03/26/16 07:10 Tylenol - PO Q6H PRN FEVER OR PAIN Albuterol Sulfate 1 amp 03/26/16 10:00 03/27/16 10:25 Ventolin 0.083% Nebulizer Soln - NEB 1 amp BID JUAN Administration Albuterol/Ipratropium 1 amp 03/26/16 07:10 Duoneb - NEB Q6H PRN PAIN Bacitracin 1 applic 03/26/16 10:00 03/27/16 09:26 Bacitracin - TP 1 applic DAILY JUAN Administration Diphenhydramine HCl 25 mg 03/26/16 09:00 03/27/16 09:29 Benadryl Injection - IVPUSH Not Given Q6H-IV [facility] Docusate Sodium 100 mg 03/26/16 07:10 Colace - PO TID PRN CONSTIPATION Guaifenesin 10 ml 03/23/16 22:00 03/26/16 21:17 Robitussin - PO 10 ml HS JUAN Administration Guaifenesin 5 ml 03/26/16 07:10 Robitussin Dm - PO Q6H PRN COUGH Piperacillin Sod/Tazobactam Sod 50 mls @ 100 mls/hr 03/24/16 02:00 03/27/16 09: 24 Zosyn 3.375gm Ivpb (Pre-Docked) IVPB 100 mls/hr Q8H-IV [facility] Administration Metoprolol Tartrate 5 mg 03/23/16 09:00 03/25/16 12:36 Lopressor Injection - IVPUSH 5 mg Q4H PRN Administration TACHYCARDIA Metoprolol Tartrate 37.5 mg 03/25/16 22:00 03/27/16 06:21 Lopressor - PO 37.5 mg TID JUAN Administration Nystatin/Triamcinolone Acetonide 1 applic 03/26/16 10:00 03/27/16 09:25 Mycolog Ii Cream - TP 1 applic BID JUAN Administration Pantoprazole Sodium 40 mg 03/26/16 10:00 03/27/16 09:24 Protonix - PO 40 mg DAILY JUAN Administration Zinc Acetate/Diphenhydramine 1 applic 03/26/16 10:00 03/27/16 09:26 Benadryl 2% Cream TP 1 applic BID JUAN Administration Impression 1. pericardial effusion 2. hypoxia 3. proteinuria 4. HTN 5. skin cancer 6. congestion on cxr 7. s/p fall and laceration to head 8. hyperkalemia 9. azotemia Plan - agree with dose of lasix - sodium is low today - cardio input appreciated - cxr reviewed, there is congestion - cont current management - lasix PRN - potassium is stable Dr Ruth
[2016-03-27] MEDS ORDERED: FUROSEMIDE 40 MG/4 ML INJECTABLE VIAL ONE (12:38)
--- NOTE | 2016-03-27 13:47 | PN ---
Progress Note, Physician History of Present Illness: no issues overnight no complaints - Current Medication List Current Medications: Active Medications Acetaminophen (Tylenol -) 650 mg PO Q6H PRN PRN Reason: FEVER OR PAIN Albuterol Sulfate (Ventolin 0.083% Nebulizer Soln -) 1 amp NEB BID [facility] Last Admin: 03/27/16 10:25 Dose: 1 amp Albuterol/Ipratropium (Duoneb -) 1 amp NEB Q6H PRN PRN Reason: PAIN Bacitracin (Bacitracin -) 1 applic TP DAILY [facility] Last Admin: 03/27/16 09:26 Dose: 1 applic Diphenhydramine HCl (Benadryl Injection -) 25 mg IVPUSH Q6H-IV [facility] Last Admin: 03/27/16 09:29 Dose: Not Given Docusate Sodium (Colace -) 100 mg PO TID PRN PRN Reason: CONSTIPATION Guaifenesin (Robitussin -) 10 ml PO HS [facility] Last Admin: 03/26/16 21:17 Dose: 10 ml Guaifenesin (Robitussin Dm -) 5 ml PO Q6H PRN PRN Reason: COUGH Heparin Sodium (Porcine) (Heparin -) 5,000 unit SQ TID [facility] Piperacillin Sod/Tazobactam Sod (Zosyn 3.375gm Ivpb (Pre-Docked)) 50 mls @ 100 mls/hr IVPB Q8H-IV [facility] Last Admin: 03/27/16 09:24 Dose: 100 mls/hr Metoprolol Tartrate (Lopressor Injection -) 5 mg IVPUSH Q4H PRN PRN Reason: TACHYCARDIA Last Admin: 03/25/16 12:36 Dose: 5 mg Metoprolol Tartrate (Lopressor -) 37.5 mg PO TID [facility] Last Admin: 03/27/16 13:19 Dose: 37.5 mg Nystatin/Triamcinolone Acetonide (Mycolog Ii Cream -) 1 applic TP BID [facility] Last Admin: 03/27/16 09:25 Dose: 1 applic Pantoprazole Sodium (Protonix -) 40 mg PO DAILY [facility] Last Admin: 03/27/16 09:24 Dose: 40 mg Zinc Acetate/Diphenhydramine (Benadryl 2% Cream) 1 applic TP BID [facility] Last Admin: 03/27/16 09:26 Dose: 1 applic - Objective Vital Signs: Vital Signs Temperature 98.8 F 03/27/16 10:00 Pulse Rate 87 03/27/16 11:46 Respiratory Rate 16 03/27/16 10:00 Blood Pressure 90/53 03/27/16 10:00 O2 Sat by Pulse Oximetry (%) 93 L 03/27/16 11:46 Constitutional: Yes: No Distress, Calm Eyes: No: Sclera Icterus Cardiovascular: RRR +JVD Respiratory: Yes: decreased bibasilar sounds No: Accessory Muscle Use Gastrointestinal: Yes: Normal Bowel Sounds, Soft. some minimal tenderness Edema: No Neurological: Yes: Alert. Labs: CBC, BMP 03/27/16 05:00 03/27/16 05:00 INR, PTT INR 1.16 (0.82-1.09) H 03/15/16 05:20 Assessment/Plan 75F with HTN admitted with nausea vomiting weakness and anorexia found to have a pericardial effusion on echo and CT scan transferred to ICU for further monitoring. Spoke to granddaughter who would like to be aggressive about her treatment. They would now like a pericardial window. they wants a work up for malignancy and they would like skin and bone biopsies Pericardial effusion:hemodynamically stable: possible effusion could be from recent viral infection no clinical evidence of pericardial tamponade s/p pericardial window 380ml fluid Drained clear fluid BP stable No JVD no muffled heart sounds CTA chest negative for PE CT surgery consult appreciated Nephrology consult appreciated hold norvasc per cardiology fluid bolus PRN hypotension [facility] contacted for imaging studies show lytic lesion on head CT and spinal XR off indomethacin off colchicine repeat echo is unchanged Diueresis significantly improved respiratory status of patient Possible PNA: elevated WBC count worsening on Zosyn ID following will follow up recommendations systolic CHF: newly diagnosed on echo mod-severe decreased LEVF, inferior wall hypokinesis, normal right ventricular function, mild eft atrial enlargement, mild mitral regurg/tricuspid regurg, moderate pericardial effusion, possible impending tamponade based on right atrial wall collapse Cardiology consult appreciated Post op from pericardial window 380ml drained SPEP/UPEP-SPEP negative Needs aggressive chest PT and pulmonary toilet continue beta oc One dose lasix given by cardiology today Hypoxia: improved Patient saturating well in ICU on room air CTA chest negative for PE CXR congestion-worsened Assess daily need for dieresis- lasix 20mg IVP today CT reviewed bronchodilators Rash: contact dermatitis benadryl IV Q6h PRN HTN: Controlled for now continue beta oc Afib: HR controlled on metoprolol mechanical fall: no issues at this time sutures removed Skin lesion likely malignancy: likely some kind of benign or malignant growth possible patient has other malignancy Granddaughter would not like it biopsied SPEP/UPEP negative Proteinuria: Nephrology consult appreciated FEN: Stop IVF mild hyponatremia on diet PPx: HSQ SCD protonix PT Transfer to Telemetry Patient seen and case discussed with Dr. Temple
[2016-03-27] MEDS: HEPARIN NA (PORCINE) 5,000 UNITS/ML 1ML VIAL SQ SCH ×2 (15:40→21:48)
--- NOTE | 2016-03-27 16:33 | PN ---
Physical Exam: SUBJECTIVE: Patient seen and examined. OBJECTIVE: Vital Signs Period Temp Pulse Resp BP Sys/Sanford Pulse Ox Last 24 Hr 98 F-99.2 F 77-94 16-20 90-127/51-74 93-96 GENERAL: The patient is awake. Weak. Follows commands. Speaks a few words. HEAD: Resolving periorbital and facial ecchymoses EYES: PERRL, sclera anicteric, conjunctiva clear. No ptosis. LUNGS: Diffuse crackles, + productive cough HEART: Regular rate and rhythm, S1, S2 ABDOMEN: Mild RLQ tenderness. EXTREMITIES: 2+ pulses, warm, well-perfused, no edema. 4cm tumorous growth RLE. NEUROLOGICAL: Cranial nerves II through XII grossly intact. Laboratory Results - last 24 hr 03/27/16 03/27/16 05:00 05:00 WBC 14.3 H RBC 3.66 Hgb 11.1 Hct 34.5 MCV 94.2 MCHC 32.1 RDW 17.4 H Plt Count 275 MPV 9.9 Neutrophils % 69.0 Lymphocytes % 8.0 Monocytes % 5.0 Eosinophils % 7.0 H Band Neutrophils 9.0 Metamyelocytes 2 D Smudge Cells Few Platelet Estimate Adequate Platelet Comment No clotting detected Polychromasia 1+ Hypochromic-Microcytic 1+ Poikilocytosis 2+ Anisocytosis 2+ Microcytosis 1+ Macrocytosis 1+ Sodium 135 L Potassium 4.5 Chloride 100 Carbon Dioxide 30 Anion Gap 5 L BUN 13 Creatinine 0.6 Creat Clearance w eGFR > 60 Random Glucose 133 H D Calcium 8.1 L Phosphorus 3.5 Magnesium 2.1 Total Bilirubin 0.5 D AST 66 H D ALT 86 H D Alkaline Phosphatase 85 Total Protein 5.7 L Albumin 2.0 L Active Medications Generic Name Dose Route Start Last Admin Trade Name Freq PRN Reason Stop Dose Admin Acetaminophen 650 mg 03/26/16 07:10 Tylenol - PO Q6H PRN FEVER OR PAIN Albuterol Sulfate 1 amp 03/26/16 10:00 03/27/16 10:25 Ventolin 0.083% Nebulizer Soln - NEB 1 amp BID JUAN Administration Albuterol/Ipratropium 1 amp 03/26/16 07:10 Duoneb - NEB Q6H PRN PAIN Bacitracin 1 applic 03/26/16 10:00 03/27/16 09:26 Bacitracin - TP 1 applic DAILY JUAN Administration Diphenhydramine HCl 25 mg 03/26/16 09:00 03/27/16 15:40 Benadryl Injection - IVPUSH 25 mg Q6H-IV [facility]UAN Administration Docusate Sodium 100 mg 03/26/16 07:10 Colace - PO TID PRN CONSTIPATION Guaifenesin 10 ml 03/23/16 22:00 03/26/16 21:17 Robitussin - PO 10 ml HS JUAN Administration Guaifenesin 5 ml 03/26/16 07:10 Robitussin Dm - PO Q6H PRN COUGH Heparin Sodium (Porcine) 5,000 unit 03/27/16 14:00 03/27/16 15:40 Heparin - SQ 5,000 unit TID JUAN Administration Piperacillin Sod/Tazobactam Sod 50 mls @ 100 mls/hr 03/24/16 02:00 03/27/16 09: 24 Zosyn 3.375gm Ivpb (Pre-Docked) IVPB 100 mls/hr Q8H-IV [facility]UAN Administration Metoprolol Tartrate 5 mg 03/23/16 09:00 03/25/16 12:36 Lopressor Injection - IVPUSH 5 mg Q4H PRN Administration TACHYCARDIA Metoprolol Tartrate 37.5 mg 03/25/16 22:00 03/27/16 13:19 Lopressor - PO 37.5 mg TID JUAN Administration Nystatin/Triamcinolone Acetonide 1 applic 03/26/16 10:00 03/27/16 09:25 Mycolog Ii Cream - TP 1 applic BID JUAN Administration Pantoprazole Sodium 40 mg 03/26/16 10:00 03/27/16 09:24 Protonix - PO 40 mg DAILY [facility]UAN Administration Zinc Acetate/Diphenhydramine 1 applic 03/26/16 10:00 03/27/16 09:26 Benadryl 2% Cream TP 1 applic BID JUAN Administration ASSESSMENT/PLAN: ASSESSMENT/PLAN: This is hospital day #18, POD #12 for this 75 year-old female with PMH of HTN, MA x2, pericardial effusion s/p pericardial window on 03/15. Prolonged hopsital course. Moderate pericardial effusion Severe systolic heart failure --03/09/16 Echo: LV function moderately to severely reduced, inferior wall severely hypokinetic; RV grossly normal; LAE; mild MR, mild TR, trace to mild PI ; moderate pericardial effusion with diastolic inversion of the right atrial free wall --s/p pericardial window 03/15, today is POD #12; fungal culture pending --cytology negative for malignant cells --03/24 CT chest showed moderate pericardial effusion; reviewed by Dr. Rasheed, no recurrence of significant effusion, first one was clinically insignificant as well; no indication for repeat echo Severe sepsis Multilobar pneumonia --WBC trending up 14.3k, afebrile --hemodynamically stable --cultures negative to date --continue Zosyn (day #5) --ID following Lactic acidosis, resolved Cholelithiasis --no sign of cholelithiasis Elevated troponins --remain mildly elevated but flat trending --likely secondary to infectious process/demand ischemia Soft tissue facial injuries s/p mechanical fall, resolving r/o malignancy --imaging from [facility] showed lytic lesions throughout the calvarium and the cervical spine; 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 Executed HCP and DNR/DNI. Orders entered. Visit type - Emergency Visit Emergency Visit: Yes ED Registration Date: 03/09/16 Care time: The patient presented to the Emergency Department on the above date and was hospitalized for further evaluation of their emergent condition. - New Patient This patient is new to me today: No - Critical Care Critical Care patient: Yes Total Critical Care Time (in minutes): 35 Critical Care Statement: The care of this patient involved high complexity decision making to prevent further life threatening deterioration of the patient 's condition and/or to evalute & treat vital organ system(s) failure or risk of failure.
[2016-03-27] MEDS ORDERED: guaiFENesin/D-METHORPHAN HB 10 ML UNIT-DOSE CUPS PO PRN (18:12)
[2016-03-27] MEDS ORDERED: ALBUTEROL SO4 2.5/IPRATROPIUM 0.5 INH SOL 3 ML VIAL.NEB. NEB PRN (18:12)
[2016-03-27] MEDS ORDERED: METOPROLOL TARTRATE 5 MG/5 ML VIAL IVPUSH ONE (18:12)
[2016-03-27] MEDS ORDERED: METOPROLOL TARTRATE 5 MG/5 ML VIAL IVPUSH PRN (18:12)
[2016-03-27] MEDS ORDERED: DOCUSATE SODIUM 100 MG CAPSULE (FP) PO PRN (18:12)
[2016-03-27] MEDS: guaiFENesin 200 MG/10 ML 10 ML UNIT-DOSE CUPS PO SCH (22:13)
--- NOTE | 2016-03-27 23:06 | PN ---
Progress Note, Physician History of Present Illness: patient doing better no events patient now in sinus - Current Medication List Current Medications: Active Medications Acetaminophen (Tylenol -) 650 mg PO Q6H PRN PRN Reason: FEVER OR PAIN Albuterol Sulfate (Ventolin 0.083% Nebulizer Soln -) 1 amp NEB BID JUAN Albuterol/Ipratropium (Duoneb -) 1 amp NEB Q6H PRN PRN Reason: PAIN Bacitracin (Bacitracin -) 1 applic TP DAILY [facility] Diphenhydramine HCl (Benadryl Injection -) 25 mg IVPUSH Q6H-IV [facility] Last Admin: 03/27/16 21:48 Dose: 25 mg Docusate Sodium (Colace -) 100 mg PO TID PRN PRN Reason: CONSTIPATION Guaifenesin (Robitussin -) 10 ml PO HS [facility] Last Admin: 03/27/16 22:13 Dose: 10 ml Guaifenesin (Robitussin Dm -) 5 ml PO Q6H PRN PRN Reason: COUGH Heparin Sodium (Porcine) (Heparin -) 5,000 unit SQ TID [facility] Last Admin: 03/27/16 21:48 Dose: 5,000 unit Piperacillin Sod/Tazobactam Sod (Zosyn 3.375gm Ivpb (Pre-Docked)) 50 mls @ 100 mls/hr IVPB Q8H-IV [facility] Metoprolol Tartrate (Lopressor -) 37.5 mg PO TID [facility] Last Admin: 03/27/16 21:48 Dose: 37.5 mg Metoprolol Tartrate (Lopressor Injection -) 5 mg IVPUSH Q4H PRN PRN Reason: TACHYCARDIA Nystatin/Triamcinolone Acetonide (Mycolog Ii Cream -) 1 applic TP BID [facility] Last Admin: 03/27/16 22:12 Dose: 1 applic Pantoprazole Sodium (Protonix -) 40 mg PO DAILY [facility] Zinc Acetate/Diphenhydramine (Benadryl 2% Cream) 1 applic TP BID [facility] Last Admin: 03/27/16 21:48 Dose: 1 applic - Objective Vital Signs: Vital Signs Temperature 98 F 03/27/16 16:00 Pulse Rate 82 03/27/16 18:00 Respiratory Rate 20 03/27/16 20:29 Blood Pressure 119/93 03/27/16 18:00 O2 Sat by Pulse Oximetry (%) 96 03/27/16 20:29 Constitutional: Yes: No Distress, Calm Cardiovascular: Yes: Regular Rate and Rhythm Respiratory: Yes: Regular, Poor Air Entry Gastrointestinal: Yes: Soft, Tenderness (on rt side mostly muscular) Extremities: Yes: WNL Neurological: Yes: Alert, Oriented Labs: CBC, BMP 03/27/16 05:00 03/27/16 05:00 INR, PTT INR 1.16 (0.82-1.09) H 03/15/16 05:20 - ....Imaging Chest X-ray: Report Reviewed, Image Reviewed Assessment/Plan after evaluating the patient there are couple of things i am worried about one is is the patient having superimposed infection in the lungs though xray does not show any changes there might be some intra abd process Problem List - Problems (1) Hypoxia Code(s): R09.02 - HYPOXEMIA (2) Lethargy Code(s): R53.83 - OTHER FATIGUE (3) Pericardial effusion Code(s): I31.3 - PERICARDIAL EFFUSION (NONINFLAMMATORY) (4) Proteinuria Code(s): R80.9 - PROTEINURIA, UNSPECIFIED (5) Hypertension Code(s): I10 - ESSENTIAL (PRIMARY) HYPERTENSION (6) Skin cancer Code(s): C44.90 - UNSPECIFIED MALIGNANT NEOPLASM OF SKIN, UNSPECIFIED abd pain cough plan continue abx chest physio incentive linn chest percussion continue as per icu cc time 40 min
--- NOTE | 2016-03-27 23:09 | PN ---
Progress Note, Physician History of Present Illness: patient doing better no events no issues - Current Medication List Current Medications: Active Medications Acetaminophen (Tylenol -) 650 mg PO Q6H PRN PRN Reason: FEVER OR PAIN Albuterol Sulfate (Ventolin 0.083% Nebulizer Soln -) 1 amp NEB BID [facility] Albuterol/Ipratropium (Duoneb -) 1 amp NEB Q6H PRN PRN Reason: PAIN Bacitracin (Bacitracin -) 1 applic TP DAILY [facility] Diphenhydramine HCl (Benadryl Injection -) 25 mg IVPUSH Q6H-IV [facility] Last Admin: 03/27/16 21:48 Dose: 25 mg Docusate Sodium (Colace -) 100 mg PO TID PRN PRN Reason: CONSTIPATION Guaifenesin (Robitussin -) 10 ml PO HS [facility] Last Admin: 03/27/16 22:13 Dose: 10 ml Guaifenesin (Robitussin Dm -) 5 ml PO Q6H PRN PRN Reason: COUGH Heparin Sodium (Porcine) (Heparin -) 5,000 unit SQ TID [facility] Last Admin: 03/27/16 21:48 Dose: 5,000 unit Piperacillin Sod/Tazobactam Sod (Zosyn 3.375gm Ivpb (Pre-Docked)) 50 mls @ 100 mls/hr IVPB Q8H-IV [facility] Metoprolol Tartrate (Lopressor -) 37.5 mg PO TID [facility] Last Admin: 03/27/16 21:48 Dose: 37.5 mg Metoprolol Tartrate (Lopressor Injection -) 5 mg IVPUSH Q4H PRN PRN Reason: TACHYCARDIA Nystatin/Triamcinolone Acetonide (Mycolog Ii Cream -) 1 applic TP BID [facility] Last Admin: 03/27/16 22:12 Dose: 1 applic Pantoprazole Sodium (Protonix -) 40 mg PO DAILY [facility] Zinc Acetate/Diphenhydramine (Benadryl 2% Cream) 1 applic TP BID [facility] Last Admin: 03/27/16 21:48 Dose: 1 applic - Objective Vital Signs: Vital Signs Temperature 98 F 03/27/16 16:00 Pulse Rate 82 03/27/16 18:00 Respiratory Rate 20 03/27/16 20:29 Blood Pressure 119/93 03/27/16 18:00 O2 Sat by Pulse Oximetry (%) 96 03/27/16 20:29 Constitutional: Yes: No Distress, Calm Cardiovascular: Yes: Regular Rate and Rhythm Gastrointestinal: Yes: Normal Bowel Sounds, Soft Musculoskeletal: Yes: WNL Extremities: Yes: WNL Neurological: Yes: Alert, Oriented Psychiatric: Yes: Alert Labs: CBC, BMP 03/27/16 05:00 03/27/16 05:00 INR, PTT INR 1.16 (0.82-1.09) H 03/15/16 05:20 Assessment/Plan after evaluating the patient there are couple of things i am worried about one is is the patient having superimposed infection in the lungs though xray does not show any changes there might be some intra abd process Problem List - Problems (1) Hypoxia Code(s): R09.02 - HYPOXEMIA (2) Lethargy Code(s): R53.83 - OTHER FATIGUE (3) Pericardial effusion Code(s): I31.3 - PERICARDIAL EFFUSION (NONINFLAMMATORY) (4) Proteinuria Code(s): R80.9 - PROTEINURIA, UNSPECIFIED (5) Hypertension Code(s): I10 - ESSENTIAL (PRIMARY) HYPERTENSION (6) Skin cancer Code(s): C44.90 - UNSPECIFIED MALIGNANT NEOPLASM OF SKIN, UNSPECIFIED abd pain cough plan continue abx chest physio incentive linn patient doing well continue as per icu cc time 40 min
[2016-03-28] MEDS: PIPERACILLIN/TAZOB 3.375 GM 50 ML IVPB SCH ×3 (01:05→17:26)
[2016-03-28 05:58] LABS: MCH 29.4 pg (25.7-33.7); MCHC 31.3 g/dl (32.0-36.0); MEAN CELL VOLUME 93.7 fl (80-96); MEAN PLT VOLUME 9.8 fl (7.5-11.1); PLATELET COUNT 267 K/MM3 (134-434); RDW 17.6 % (11.6-15.6); WHITE BLOOD COUNT 15.4 K/mm3 (4.0-10.0)
[2016-03-28] MEDS: METOPROLOL TARTRATE 25 MG TABLET (FP) PO SCH ×3 (06:35→21:58)
[2016-03-28] MEDS: HEPARIN NA (PORCINE) 5,000 UNITS/ML 1ML VIAL SQ SCH ×3 (06:36→21:57)
[2016-03-28 06:58] LABS: ALK PHOS 87 U/L (45-117); ANION GAP 6 (8-16); BILIRUBIN,TOTAL 0.4 mg/dL (0.2-1.0); CALCIUM 7.9 mg/dL (8.5-10.1); CO2 31 mmol/L (21-32); CREATININE 0.7 mg/dL (0.55-1.02); GLUCOSE,RANDOM 132 mg/dL (74-106); SGOT/AST 42 U/L (15-37); SGPT/ALT 80 U/L (12-78); TOT PROT 5.6 g/dl (6.4-8.2)
[2016-03-28] MEDS: PANTOPRAZOLE 40 MG TABLET (FP) PO SCH (09:33)
[2016-03-28] MEDS: NYSTATIN/TRIAMCINOLONE TOPICAL CREAM 15 GM TUBE TP SCH ×2 (09:35→22:02)
[2016-03-28] MEDS: ALBUTEROL SO4 0.083% IH SOL 2.5 MG/3 ML VIAL.NEB. NEB SCH ×2 (10:25→22:20)
--- NOTE | 2016-03-28 12:03 | PN ---
Teaching Attending Note Name of Resident: Dajuan Gerber ATTENDING PHYSICIAN STATEMENT I saw and evaluated the patient. I reviewed the resident's note and discussed the case with the resident. I agree with the resident's findings and plan as documented. SUBJECTIVE: Pt seen and examined in the ICU. Remains in sinus rhythm. Abdomen more distended today. Having BM per chart. OBJECTIVE: Last Vital Signs Temp Pulse Resp BP Pulse Ox 98 F 79 16 108/63 95 03/28/16 06:00 03/28/16 10:25 03/28/16 10:00 03/28/16 10:00 03/28/16 11:20 Intake & Output 03/25/16 03/26/16 03/27/16 03/28/16 23:59 23:59 23:59 23:59 Intake Total 513 855 6754 400 Output Total 900 700 650 400 Balance -750 50 510 0 Weight 116 lb 5 oz 113 lb 114 lb Gen: NAD at rest Heart: RRR Lung: decreased breath sounds at the bases Abd: softly distended, nontender Ext: no edema CBC, BMP 03/28/16 05:00 03/28/16 05:00 Active Medications Acetaminophen (Tylenol -) 650 mg PO Q6H PRN PRN Reason: FEVER OR PAIN Albuterol Sulfate (Ventolin 0.083% Nebulizer Soln -) 1 amp NEB BID [facility] Last Admin: 03/28/16 10:25 Dose: 1 amp Albuterol/Ipratropium (Duoneb -) 1 amp NEB Q6H PRN PRN Reason: PAIN Bacitracin (Bacitracin -) 1 applic TP DAILY JUAN Diphenhydramine HCl (Benadryl Injection -) 25 mg IVPUSH Q6H-IV JUAN Last Admin: 03/28/16 09:33 Dose: 25 mg Docusate Sodium (Colace -) 100 mg PO TID PRN PRN Reason: CONSTIPATION Guaifenesin (Robitussin -) 10 ml PO HS JUAN Last Admin: 03/27/16 22:13 Dose: 10 ml Guaifenesin (Robitussin Dm -) 5 ml PO Q6H PRN PRN Reason: COUGH Heparin Sodium (Porcine) (Heparin -) 5,000 unit SQ TID JUAN Last Admin: 03/28/16 06:36 Dose: 5,000 unit Piperacillin Sod/Tazobactam Sod (Zosyn 3.375gm Ivpb (Pre-Docked)) 50 mls @ 100 mls/hr IVPB Q8H-IV [facility] Last Admin: 03/28/16 09:34 Dose: 100 mls/hr Metoprolol Tartrate (Lopressor -) 37.5 mg PO TID [facility] Last Admin: 03/28/16 06:35 Dose: 37.5 mg Metoprolol Tartrate (Lopressor Injection -) 5 mg IVPUSH Q4H PRN PRN Reason: TACHYCARDIA Nystatin/Triamcinolone Acetonide (Mycolog Ii Cream -) 1 applic TP BID [facility] Last Admin: 03/28/16 09:35 Dose: 1 applic Pantoprazole Sodium (Protonix -) 40 mg PO DAILY [facility] Last Admin: 03/28/16 09:33 Dose: 40 mg Zinc Acetate/Diphenhydramine (Benadryl 2% Cream) 1 applic TP BID [facility] Last Admin: 03/28/16 09:34 Dose: 1 applic ASSESSMENT AND PLAN: Paroxysmal Atrial Fibrillation now in sinus Pericardial Effusion Early Cardiac Tamponade s/p Pericardial Window LV Systolic Dysfunction Hypoxia resolved HTN Dementia r/o Malignancy - rate controlled on lopressor - anticoagulation if no contraindications - check abdominal X-ray - rectal exam to r/o impaction - consider monitoring off antibiotics as pt afebrile and no obvious source of infection - lasix as needed - monitor urine output, creatinine - incentive spirometry - DVT prophylaxis - continue discussions regarding goals of care - can monitor on telemetry
--- NOTE | 2016-03-28 12:21 | PN ---
Progress Note (short form) - Note Progress Note: Subjective: The patient is seen and examined at the bedside, she has no complaints at this time Current Medications Generic Name Dose Route Start Last Admin Trade Name Freq PRN Reason Stop Dose Admin Acetaminophen 650 mg 03/27/16 18:12 Tylenol - PO Q6H PRN FEVER OR PAIN Albuterol Sulfate 1 amp 03/27/16 22:00 03/28/16 10:25 Ventolin 0.083% Nebulizer Soln - NEB 1 amp BID JUAN Administration Albuterol/Ipratropium 1 amp 03/27/16 18:12 Duoneb - NEB Q6H PRN PAIN Bacitracin 1 applic 03/28/16 10:00 Bacitracin - TP DAILY JUAN Diphenhydramine HCl 25 mg 03/27/16 21:00 03/28/16 09:33 Benadryl Injection - IVPUSH 25 mg Q6H-IV JUAN Administration Docusate Sodium 100 mg 03/27/16 18:12 Colace - PO TID PRN CONSTIPATION Guaifenesin 10 ml 03/27/16 22:00 03/27/16 22:13 Robitussin - PO 10 ml HS JUAN Administration Guaifenesin 5 ml 03/27/16 18:12 Robitussin Dm - PO Q6H PRN COUGH Heparin Sodium (Porcine) 5,000 unit 03/27/16 14:00 03/28/16 06:36 Heparin - SQ 5,000 unit TID JUAN Administration Piperacillin Sod/Tazobactam Sod 50 mls @ 100 mls/hr 03/28/16 02:00 03/28/16 09: 34 Zosyn 3.375gm Ivpb (Pre-Docked) IVPB 100 mls/hr Q8H-IV JUAN Administration Metoprolol Tartrate 37.5 mg 03/27/16 22:00 03/28/16 06:35 Lopressor - PO 37.5 mg TID JUAN Administration Metoprolol Tartrate 5 mg 03/27/16 18:12 Lopressor Injection - IVPUSH Q4H PRN TACHYCARDIA Nystatin/Triamcinolone Acetonide 1 applic 03/27/16 22:00 03/28/16 09:35 Mycolog Ii Cream - TP 1 applic BID JUAN Administration Pantoprazole Sodium 40 mg 03/28/16 10:00 03/28/16 09:33 Protonix - PO 40 mg DAILY JUAN Administration Zinc Acetate/Diphenhydramine 1 applic 03/27/16 22:00 03/28/16 09:34 Benadryl 2% Cream TP 1 applic BID JUAN Administration Objective: Vital Signs Period Temp Pulse Resp BP Sys/Sanford Pulse Ox Last 24 Hr 97.8 F-98.4 F 68-88 16-29 105-124/51-93 95-96 Physical Exam: General: NAD Lungs: Chest with sternal incision, c/d/i Heart: RRR, S1S2 Abd: Soft, non-tender, non-distended. Normoactive bowel sounds Ext: RUE ecchymosis. RLE skin lesion CBCD WBC 15.4 K/mm3 (4.0-10.0) H 03/28/16 05:00 RBC 3.74 M/mm3 (3.60-5.2) 03/28/16 05:00 Hgb 11.0 GM/dL (10.7-15.3) 03/28/16 05:00 Hct 35.0 % (32.4-45.2) 03/28/16 05:00 MCV 93.7 fl (80-96) 03/28/16 05:00 MCHC 31.3 g/dl (32.0-36.0) L 03/28/16 05:00 RDW 17.6 % (11.6-15.6) H 03/28/16 05:00 Plt Count 267 K/MM3 (134-434) 03/28/16 05:00 MPV 9.8 fl (7.5-11.1) 03/28/16 05:00 CMP Sodium 136 mmol/L (136-145) 03/28/16 05:00 Potassium 4.1 mmol/L (3.5-5.1) 03/28/16 05:00 Chloride 99 mmol/L (98-107) 03/28/16 05:00 Carbon Dioxide 31 mmol/L (21-32) 03/28/16 05:00 Anion Gap 6 (8-16) L 03/28/16 05:00 BUN 13 mg/dL (7-18) 03/28/16 05:00 Creatinine 0.7 mg/dL (0.55-1.02) 03/28/16 05:00 Creat Clearance w eGFR > 60 (>60) 03/28/16 05:00 Random Glucose 132 mg/dL (74-106) H 03/28/16 05:00 Calcium 7.9 mg/dL (8.5-10.1) L 03/28/16 05:00 Total Bilirubin 0.4 mg/dL (0.2-1.0) 03/28/16 05:00 AST 42 U/L (15-37) H D 03/28/16 05:00 ALT 80 U/L (12-78) H 03/28/16 05:00 Alkaline Phosphatase 87 U/L (45-117) 03/28/16 05:00 Total Protein 5.6 g/dl (6.4-8.2) L 03/28/16 05:00 Albumin 2.0 g/dl (3.4-5.0) L 03/28/16 05:00 CARDIAC ENZYMES Creatine Kinase 11 IU/L (26-140) L 03/25/16 12:05 Troponin I 0.07 ng/ml (0.00-0.05) H 03/25/16 23:10 Microbiology 03/23/16 07:15 Blood - Peripheral Venous Blood Culture - Final NO GROWTH AFTER 5 DAYS INCUBATION 03/23/16 07:15 Blood - Peripheral Venous Blood Culture - Final NO GROWTH AFTER 5 DAYS INCUBATION 03/24/16 20:30 Urine - Urine - Catheterized Urine Culture - Final NO GROWTH OBTAINED 03/15/16 12:45 Tissue-Other AFB Smear Concentration - Final 03/15/16 12:45 Tissue-Other Mycobacterial Culture - Preliminary 03/08/16 19:15 Nasopharyngeal Swab Respiratory Virus Panel - Final 03/15/16 13:03 Tissue-Other Gram Stain - Final 03/15/16 13:03 Tissue-Other Tissue Culture - Final NO GROWTH OF AEROBIC ORGANISMS AFTER 48 HOURS INCUBATION 03/15/16 13:03 Tissue-Other Anaerobic Culture - Final NO ANAEROBES WERE ISOLATED 03/15/16 12:19 Pericardial Fluid Gram Stain - Final 03/15/16 12:19 Pericardial Fluid Body Fluid Culture - Final NO GROWTH OF AEROBIC ORGANISMS AFTER 48 HOURS INCUBATION 03/15/16 12:19 Pericardial Fluid Anaerobic Culture - Final NO ANAEROBES WERE ISOLATED 03/15/16 13:03 Tissue-Other JER Preparation - Preliminary 03/15/16 13:03 Tissue-Other Fungal Culture - Preliminary 03/08/16 21:10 Urine - Urine Clean Catch Urine Culture - Final NO GROWTH OBTAINED 03/08/16 19:15 Nasopharyngeal Swab Influenza Types A,B Antigen (ZEESHAN) - Final 03/08/16 19:15 Nasopharyngeal Swab - Final Assessment: This is a 75 year old female with PMHx of HTN, [place] x2, hx of multiple falls (most recent on 03/05) who presented to the ED with decrease po intake, lethargy, dizziness and was admitted for further evaluation and management of her emergent condition. Plan: 1) Cardiology: Moderate pericardial effusion s/p subxiphoid pericardial window 03/15 - Pericardial fungal culture pending - Pericardial bacterial culture negative - Pericardial fluid pathology negative for malignant cells - Appreciate CT surgery consult - Appreciate critical care consult Chest pain - Resolved - Appreciate cardiology consult Systolic heart failure - Echo reviewed moderate to severe lvef with inferior wall hypokinesis - Continue Metoprolol - Patient's BP not able to tolerate ACEi - Appreciate cardiology consult Paroxysmal A.fib - Rate controlled with Metoprolol - Systemic anticoagulation per cardiology 2) ID: Severe sepsis 2/2 pneumonia - Worsening leukocytosis - Continus Zosyn - Remains afebrile - Appreciate ID consult 3) Oncology: RLE skin lesion - Imaging from [place] with lytic lesions throughout the calvarium and the cervical spine. 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 - Per multiple discussions with daughter, she has declined all malignancy workup for the patient stating she would like to get her back to [place] as soon as possible 4) MSK: S/p mechanical fall with facial injuries - No acute fractures per records from [facility] 6) F/E/N: - Pureed diet - Monitor electrolytes 7) Prophylaxis: - Heparin 5,000u sq tid 8) Dispo: - Requires ICU care CODE STATUS: FULL CODE Visit type - Emergency Visit Emergency Visit: Yes ED Registration Date: 03/09/16 Care time: The patient presented to the Emergency Department on the above date and was hospitalized for further evaluation of their emergent condition. - New Patient This patient is new to me today: No - Critical Care Critical Care patient: No
--- NOTE | 2016-03-28 13:08 | PN ---
Progress Note (short form) - Note Progress Note: s: no overnight events, pt comfortable o: Vital Signs Period Temp Pulse Resp BP Sys/Sanford Pulse Ox Last 24 Hr 97.8 F-98.4 F 68-88 16-29 105-124/51-93 95-96 Constitutional: Yes: No Distress, Calm Eyes: No: Sclera Icterus Cardiovascular: Yes: Regular Rate and Rhythm, no jvd, S1, S2,. No: Gallop, Murmur, Rub Respiratory: Yes: scattered rhonchi; No: Accessory Muscle Use, Rales, Wheezes Gastrointestinal: Yes: Normal Bowel Sounds, Soft. No: Tenderness Extremities: No: Cold Edema: No Integumentary: No: Jaundice diaphoresis Neurological: Yes: Alert. Psychiatric: No: Agitated Current Medications Generic Name Dose Route Start Last Admin Trade Name Freq PRN Reason Stop Dose Admin Acetaminophen 650 mg 03/27/16 18:12 Tylenol - PO Q6H PRN FEVER OR PAIN Albuterol Sulfate 1 amp 03/27/16 22:00 03/28/16 10:25 Ventolin 0.083% Nebulizer Soln - NEB 1 amp BID JUAN Administration Albuterol/Ipratropium 1 amp 03/27/16 18:12 Duoneb - NEB Q6H PRN PAIN Bacitracin 1 applic 03/28/16 10:00 Bacitracin - TP DAILY JUAN Diphenhydramine HCl 25 mg 03/27/16 21:00 03/28/16 09:33 Benadryl Injection - IVPUSH 25 mg Q6H-IV JUAN Administration Docusate Sodium 100 mg 03/27/16 18:12 Colace - PO TID PRN CONSTIPATION Guaifenesin 10 ml 03/27/16 22:00 03/27/16 22:13 Robitussin - PO 10 ml HS JUAN Administration Guaifenesin 5 ml 03/27/16 18:12 Robitussin Dm - PO Q6H PRN COUGH Heparin Sodium (Porcine) 5,000 unit 03/27/16 14:00 03/28/16 06:36 Heparin - SQ 5,000 unit TID JUAN Administration Piperacillin Sod/Tazobactam Sod 50 mls @ 100 mls/hr 03/28/16 02:00 03/28/16 09: 34 Zosyn 3.375gm Ivpb (Pre-Docked) IVPB 100 mls/hr Q8H-IV JUAN Administration Metoprolol Tartrate 37.5 mg 03/27/16 22:00 03/28/16 06:35 Lopressor - PO 37.5 mg TID JUAN Administration Metoprolol Tartrate 5 mg 03/27/16 18:12 Lopressor Injection - IVPUSH Q4H PRN TACHYCARDIA Nystatin/Triamcinolone Acetonide 1 applic 03/27/16 22:00 03/28/16 09:35 Mycolog Ii Cream - TP 1 applic BID JUAN Administration Pantoprazole Sodium 40 mg 03/28/16 10:00 03/28/16 09:33 Protonix - PO 40 mg DAILY JUAN Administration Zinc Acetate/Diphenhydramine 1 applic 03/27/16 22:00 03/28/16 09:34 Benadryl 2% Cream TP 1 applic BID JUAN Administration Laboratory Last Values WBC 15.4 K/mm3 (4.0-10.0) H 03/28/16 05:00 RBC 3.74 M/mm3 (3.60-5.2) 03/28/16 05:00 Hgb 11.0 GM/dL (10.7-15.3) 03/28/16 05:00 Hct 35.0 % (32.4-45.2) 03/28/16 05:00 MCV 93.7 fl (80-96) 03/28/16 05:00 MCHC 31.3 g/dl (32.0-36.0) L 03/28/16 05:00 RDW 17.6 % (11.6-15.6) H 03/28/16 05:00 Plt Count 267 K/MM3 (134-434) 03/28/16 05:00 MPV 9.8 fl (7.5-11.1) 03/28/16 05:00 Neutrophils % 79.0 % (42.8-82.8) 03/28/16 05:00 Lymphocytes % 11.0 % (8-40) D 03/28/16 05:00 Monocytes % 9.0 % (3.8-10.2) 03/28/16 05:00 Eosinophils % 1.0 % (0-4.5) D 03/28/16 05:00 Basophils % 1.0 % (0-2.0) 03/26/16 10:00 Band Neutrophils 9.0 % (0-10) 03/27/16 05:00 Metamyelocytes 2 % (0-2) D 03/27/16 05:00 Myelocytes 2 % (0-2) 03/23/16 07:15 Differential Comment Manual diff done 03/26/16 10:00 Smudge Cells Few 03/27/16 05:00 Toxic Granulation 1+ 03/24/16 06:00 Platelet Estimate Adequate (NORMAL) 03/27/16 05:00 Platelet Comment No clumping noted 03/27/16 05:00 Platelet Comment No clotting detected 03/27/16 05:00 Polychromasia 1+ 03/27/16 05:00 Hypochromic-Microcytic 1+ 03/27/16 05:00 Poikilocytosis 2+ 03/27/16 05:00 Basophilic Stippling Occ 03/25/16 12:05 Anisocytosis 2+ 03/27/16 05:00 Microcytosis 1+ 03/27/16 05:00 Macrocytosis 1+ 03/27/16 05:00 Morphology Comment Slide scanned 03/09/16 19:55 ESR 53 mm/hr (0-30) H 03/11/16 05:20 INR 1.16 (0.82-1.09) H 03/15/16 05:20 PTT (Actin FS) 29.3 SECONDS (26.9-34.4) 03/15/16 05:20 Puncture Site Right radial 03/25/16 11:43 ABG pH 7.46 (7.35-7.45) H 03/25/16 11:43 ABG pCO2 at Pt Temp 38.6 mmHg (35-45) 03/25/16 11:43 ABG pO2 at Pt Temp 221.0 mmHg (70-100) H* D 03/25/16 11:43 ABG HCO3 26.8 meq/L (22-26) H 03/25/16 11:43 ABG O2 Sat (Measured) 99.5 % (90-98.9) H 03/25/16 11:43 ABG O2 Content 16.2 % vol (15-22) 03/25/16 11:43 ABG Base Excess 3.2 meq/l (-2-2) H 03/25/16 11:43 Obdulio Test Positive 03/25/16 11:43 O2 Delivery Device Non-rebreather 03/25/16 11:43 Oxygen Flow Rate 100% 03/25/16 11:43 PEEP 0.0 cmH2O 03/25/16 11:43 Sodium 136 mmol/L (136-145) 03/28/16 05:00 Potassium 4.1 mmol/L (3.5-5.1) 03/28/16 05:00 Chloride 99 mmol/L (98-107) 03/28/16 05:00 Carbon Dioxide 31 mmol/L (21-32) 03/28/16 05:00 Anion Gap 6 (8-16) L 03/28/16 05:00 BUN 13 mg/dL (7-18) 03/28/16 05:00 Creatinine 0.7 mg/dL (0.55-1.02) 03/28/16 05:00 Creat Clearance w eGFR > 60 (>60) 03/28/16 05:00 POC Glucometer 289.50003 UNITS (()) 03/18/16 05:59 Random Glucose 132 mg/dL (74-106) H 03/28/16 05:00 Hemoglobin A1c % 5.8 % (4.8-6.0) 03/09/16 06:30 Lactic Acid 1.113 mmol/L (0.4-2.0) 03/25/16 06:00 Calcium 7.9 mg/dL (8.5-10.1) L 03/28/16 05:00 Phosphorus 3.5 mg/dL (2.5-4.9) 03/27/16 05:00 Magnesium 2.1 mg/dL (1.8-2.4) 03/27/16 05:00 Total Bilirubin 0.4 mg/dL (0.2-1.0) 03/28/16 05:00 Direct Bilirubin 0.2 mg/dL (0.0-0.2) 03/25/16 06:00 AST 42 U/L (15-37) H D 03/28/16 05:00 ALT 80 U/L (12-78) H 03/28/16 05:00 Alkaline Phosphatase 87 U/L (45-117) 03/28/16 05:00 Creatine Kinase 11 IU/L (26-140) L 03/25/16 12:05 Troponin I 0.07 ng/ml (0.00-0.05) H 03/25/16 23:10 C-Reactive Protein 8.4 MG/DL (0.00-0.3) H 03/11/16 05:20 B-Natriuretic Peptide 6152.20 pg/ml (5-450) H 03/25/16 12:05 Prot Electrophoresis (.) 03/14/16 06:00 Serum Total Protein 5.8 g/dL (6.0-8.5) L 03/14/16 06:00 Total Protein 5.6 g/dl (6.4-8.2) L 03/28/16 05:00 Albumin 2.0 g/dl (3.4-5.0) L 03/28/16 05:00 Globulin 3.1 g/dL (2.2-3.9) 03/14/16 06:00 Albumin/Globulin Ratio 0.9 (0.7-1.7) 03/14/16 06:00 Nmsjj-9-Qcnoduczy 0.3 gm/dL (0.0-0.4) 03/14/16 06:00 Iiexs-5-Pgvgcpyac 0.8 gm/dL (0.4-1.0) 03/14/16 06:00 Beta Globulins 1.0 gm/dL (0.7-1.3) 03/14/16 06:00 Gamma Globulins 1.1 gm/dL (0.4-1.8) 03/14/16 06:00 Lipase 79 U/L (73-393) 03/25/16 06:00 Vitamin B12 253 pg/ml (180-914) 03/09/16 06:30 TSH 0.13 uIU/ml (0.358-3.74) L 03/11/16 05:20 Urine Color Yellow 03/24/16 20:30 Urine Appearance Clear 03/24/16 20:30 Urine pH 5.0 (5.0-8.0) 03/24/16 20:30 Ur Specific [place] 1.019 (1.001-1.035) 03/24/16 20:30 Urine Protein Negative (NEGATIVE) 03/24/16 20:30 Urine Glucose (UA) Negative (NEGATIVE) 03/24/16 20:30 Urine Ketones Negative (NEGATIVE) 03/24/16 20:30 Urine Blood Negative (NEGATIVE) 03/24/16 20:30 Urine Nitrite Negative (NEGATIVE) 03/24/16 20:30 Urine Bilirubin Negative (NEGATIVE) 03/24/16 20:30 Urine Urobilinogen Negative E.U./dl (0.2-1.0) 03/24/16 20:30 Ur Leukocyte Esterase Negative (NEGATIVE) 03/24/16 20:30 Urine RBC 1 /hpf (0-3) 03/08/16 21:10 Urine WBC 2 /hpf (3-5) 03/08/16 21:10 Urine Mucus Few 03/08/16 21:10 U Random Total Protein 127 mg/dl (5-11.9) H 03/10/16 13:25 Urine Creatinine 162.0 mg/dL 03/10/16 13:25 Protein/Creatinin Ratio 0.78 MG/DL 03/10/16 13:25 NISH M-Harry Not observed g/dL (Not Observed) 03/14/16 06:00 ELIO Screen Negative (.) 03/12/16 05:00 Blood Type O NEGATIVE 03/14/16 13:45 Antibody Screen Negative 03/14/16 13:45 Crossmatch See Detail 03/14/16 13:45 Repeat chest/abd CT 03/24: Small subpleural infiltrates, rt basilar and lingular infiltrate. Small-mod pleural effusion. small-moderate pericardial effusion. No abdominal pathology. cxr 03/28: slight improvement Echo 03/09/16 : mod-sev dec lvef, inf wall hk, nl rv, mild lae, mild mr/tr, moderate pericardial eff, ?impending tamponade based on ra wall collapse Repeat echo 03/12/16: mild con LVH. mod-sev depressed LV sys func (global), 1+ MR/TR, effusion unchanged, still with early diastolic RA collapse. repeat echo 03/21/16: sev dec lvef, nl rv, mild piotr, mild mr, mod-sev tr, rvsp 40-50, trivial pericardial eff, no signs tamponade tele: sr, occ pvc's est cct 33 mins a/p: 75 f (she is 83 according to family) with hx htn, h/o [place] x 2, dementia and possible recent diagnosis of cancer (unknown type), here with lethargy, weakness found to have systolic cardiomyopathy and pericardial effusion. pericardial effusion, possible acute pericarditis: -presented with moderate circumferential pericardial eff present but no signs of tamponade. clinically no signs of tamponade as well. -no obvious pericarditis, initially treated empirically with colchicine/ indomethacin but then renal fcn had worsened a little so they have been stopped -hemodynamically stable throughout, with no clinical tamponade -s/p pericardial window 03/16 (diagnostic as well) with 500 cc non-bloody fluid removed. pericardial fluid cultures, cytology pending. -repeat echo shows resolution of eff, but evidence of reaccumulation on 03/24 CT scan with symptoms of nausea. Would not diurese further. - 03/26: hemodynamically stable, bp improving. - 03/27: hemodynamically stable, bp normalized. Volume up today so will diurese. If bp drops, will plan on repeat echo to evaluate effusion. - 03/28: ct chest reviewed by cts and she is not felt to have any significant re- accumulation of pericardial eff. bp stable today. syst chf: -echo here shows mod-sev decreased lvef with inferior hypokinesis, patient with h/o prior NE--followed by doctors in [place] where she lives, per dtr (here visiting) -cont bb, bp too low for marian-i -no angina or other signs acs, ce's negx3, ecg w/o ischemic changes or significant q waves -03/12: clinically no definite chf, exam equiovocal for JVD--monitor closely with IVF. - 03/13: Now off IVF. CXR with new rt pleural effusion. No change in effusion size or hemodynamics with IVF. gentle diuresis as mentioned above. Strict I/O' s, daily weights. -03/14-: no signs chf on exam/cxr. cont to hold lasix and ivfs for now -will defer ? of need for ischemia eval to [place] doctors (dtr states pt plans to return as soon as medically stable)--? LV dysfxn is chronic and stable -low dose BB trial as doing. ACEI trial (2.5 mg) given 03/19 but dropped blood pressures. -03/20: Bp trending down s/p lasix and lisinopril yesterday evening. will hold dose this morning. Consider resuming again tomorrow if bp remains stable. WBC rising and cough worsening. Would repeat chest CT. -03/21: still with some chf on imaging and pericardial effusion improved (small on ct chest) so will give iv lasix dose today to help with congestion. -03/22: still with some chf on cxr so agree with 40 iv lasix dose today to help with congestion. -03/23-03/24: developing signs of infection (possible multifocal pna), poor po intake. Holding diuretics. Maintenance fluids today 03/24. Continue daily weights. -03/25-03/26: BP improved signifcantly on antibiotics. Con't to hold diuresis. - 03/27: Volume up today, will give trial dose of lasix 20 mg IV x 1. -03/28: cont prn lasix for now, avoid excess ivfs svt/PAT: -has had periodically during admit here. no obvious afib, cont to monitor on tele. -cont bb lethargy/weakness: -head ct w/o acute findings. likely 2/2 to aforementioned acute illnesses. -on abx per ID for possible infection as well htn: - cont bb. elevated trop: -trop borderline elevated (peak 0.28) the day after episode of prolonged SVT/ fever. Nl ck, no ischemic changes on ecgs. likely due to demand ischemia from svt overnight in setting of known CAD. Troponin now trending down. No signs of acs presently malignancy: -imaging at OSH shows lytic lesions in spine, HCP declines eval
--- NOTE | 2016-03-28 13:18 | PN ---
Progress Note, Physician History of Present Illness: no issues overnight no complaints - Current Medication List Current Medications: Active Medications Acetaminophen (Tylenol -) 650 mg PO Q6H PRN PRN Reason: FEVER OR PAIN Albuterol Sulfate (Ventolin 0.083% Nebulizer Soln -) 1 amp NEB BID [facility] Last Admin: 03/28/16 10:25 Dose: 1 amp Albuterol/Ipratropium (Duoneb -) 1 amp NEB Q6H PRN PRN Reason: PAIN Bacitracin (Bacitracin -) 1 applic TP DAILY [facility] Diphenhydramine HCl (Benadryl Injection -) 25 mg IVPUSH Q6H-IV [facility] Last Admin: 03/28/16 09:33 Dose: 25 mg Docusate Sodium (Colace -) 100 mg PO TID PRN PRN Reason: CONSTIPATION Guaifenesin (Robitussin -) 10 ml PO HS [facility] Last Admin: 03/27/16 22:13 Dose: 10 ml Guaifenesin (Robitussin Dm -) 5 ml PO Q6H PRN PRN Reason: COUGH Heparin Sodium (Porcine) (Heparin -) 5,000 unit SQ TID [facility] Last Admin: 03/28/16 06:36 Dose: 5,000 unit Piperacillin Sod/Tazobactam Sod (Zosyn 3.375gm Ivpb (Pre-Docked)) 50 mls @ 100 mls/hr IVPB Q8H-IV [facility] Last Admin: 03/28/16 09:34 Dose: 100 mls/hr Metoprolol Tartrate (Lopressor -) 37.5 mg PO TID [facility] Last Admin: 03/28/16 06:35 Dose: 37.5 mg Metoprolol Tartrate (Lopressor Injection -) 5 mg IVPUSH Q4H PRN PRN Reason: TACHYCARDIA Nystatin/Triamcinolone Acetonide (Mycolog Ii Cream -) 1 applic TP BID [facility] Last Admin: 03/28/16 09:35 Dose: 1 applic Pantoprazole Sodium (Protonix -) 40 mg PO DAILY [facility] Last Admin: 03/28/16 09:33 Dose: 40 mg Zinc Acetate/Diphenhydramine (Benadryl 2% Cream) 1 applic TP BID [facility] Last Admin: 03/28/16 09:34 Dose: 1 applic - Objective Vital Signs: Vital Signs Temperature 98 F 03/28/16 06:00 Pulse Rate 83 03/28/16 12:00 Respiratory Rate 18 03/28/16 12:00 Blood Pressure 115/76 03/28/16 12:00 O2 Sat by Pulse Oximetry (%) 95 03/28/16 11:20 Constitutional: Yes: No Distress, Calm Eyes: No: Sclera Icterus Cardiovascular: RRR +JVD Respiratory: Yes: decreased bibasilar sounds No: Accessory Muscle Use Gastrointestinal: Yes: Normal Bowel Sounds, Soft mildly distended non tender Edema: No Neurological: Yes: Alert. Labs: CBC, BMP 03/28/16 05:00 03/28/16 05:00 INR, PTT INR 1.16 (0.82-1.09) H 03/15/16 05:20 Assessment/Plan 75F with HTN admitted with nausea vomiting weakness and anorexia found to have a pericardial effusion on echo and CT scan transferred to ICU for further monitoring. Spoke to granddaughter who would like to be aggressive about her treatment. They would now like a pericardial window. they wants a work up for malignancy and they would like skin and bone biopsies Pericardial effusion:hemodynamically stable: possible effusion could be from recent viral infection no clinical evidence of pericardial tamponade s/p pericardial window 380ml fluid Drained clear fluid BP stable No JVD no muffled heart sounds CTA chest negative for PE CT surgery consult appreciated Nephrology consult appreciated hold norvasc per cardiology fluid bolus PRN hypotension [facility] contacted for imaging studies show lytic lesion on head CT and spinal XR off indomethacin off colchicine repeat echo is unchanged Diueresis significantly improved respiratory status of patient CXR improved Possible PNA: elevated WBC count worsening on Zosyn ID following will follow up recommendations ABD distention: will do KUB systolic CHF: newly diagnosed on echo mod-severe decreased LEVF, inferior wall hypokinesis, normal right ventricular function, mild eft atrial enlargement, mild mitral regurg/tricuspid regurg, moderate pericardial effusion, possible impending tamponade based on right atrial wall collapse Cardiology consult appreciated Post op from pericardial window 380ml drained SPEP/UPEP-SPEP negative Needs aggressive chest PT and pulmonary toilet continue beta oc lasix PRN Hypoxia: improved Patient saturating well in ICU on room air CTA chest negative for PE CXR congestion-improved from yesterday Assess daily need for dieresis- lasix 20mg IVP today CT reviewed bronchodilators Rash: contact dermatitis benadryl IV Q6h PRN HTN: Controlled for now continue beta oc Afib: HR controlled on metoprolol mechanical fall: no issues at this time sutures removed Skin lesion likely malignancy: likely some kind of benign or malignant growth possible patient has other malignancy Granddaughter would not like it biopsied SPEP/UPEP negative Proteinuria: Nephrology consult appreciated FEN: Stop IVF mild hyponatremia on diet PPx: HSQ SCD protonix PT Transfer to Telemetry Patient seen and case discussed with Dr. Temple
[2016-03-28] MEDS: BACITRACIN 30 GM TUBE TOPICAL OINTMENT TP SCH (14:51)
--- NOTE | 2016-03-28 17:34 | PN ---
Progress Note, Physician History of Present Illness: Pt seen and examined at bedside. She is awake and appears more comfortable. - Current Medication List Current Medications: Active Medications Acetaminophen (Tylenol -) 650 mg PO Q6H PRN PRN Reason: FEVER OR PAIN Albuterol Sulfate (Ventolin 0.083% Nebulizer Soln -) 1 amp NEB BID [facility] Last Admin: 03/28/16 10:25 Dose: 1 amp Albuterol/Ipratropium (Duoneb -) 1 amp NEB Q6H PRN PRN Reason: PAIN Bacitracin (Bacitracin -) 1 applic TP DAILY [facility] Last Admin: 03/28/16 14:51 Dose: 1 applic Diphenhydramine HCl (Benadryl Injection -) 25 mg IVPUSH Q6H-IV [facility] Last Admin: 03/28/16 14:52 Dose: 25 mg Docusate Sodium (Colace -) 100 mg PO TID PRN PRN Reason: CONSTIPATION Guaifenesin (Robitussin -) 10 ml PO HS [facility] Last Admin: 03/27/16 22:13 Dose: 10 ml Guaifenesin (Robitussin Dm -) 5 ml PO Q6H PRN PRN Reason: COUGH Heparin Sodium (Porcine) (Heparin -) 5,000 unit SQ TID [facility] Last Admin: 03/28/16 13:45 Dose: 5,000 unit Piperacillin Sod/Tazobactam Sod (Zosyn 3.375gm Ivpb (Pre-Docked)) 50 mls @ 100 mls/hr IVPB Q8H-IV [facility] Last Admin: 03/28/16 17:26 Dose: 100 mls/hr Metoprolol Tartrate (Lopressor -) 37.5 mg PO TID [facility] Last Admin: 03/28/16 13:45 Dose: 37.5 mg Metoprolol Tartrate (Lopressor Injection -) 5 mg IVPUSH Q4H PRN PRN Reason: TACHYCARDIA Nystatin/Triamcinolone Acetonide (Mycolog Ii Cream -) 1 applic TP BID [facility] Last Admin: 03/28/16 09:35 Dose: 1 applic Pantoprazole Sodium (Protonix -) 40 mg PO DAILY [facility] Last Admin: 03/28/16 09:33 Dose: 40 mg Zinc Acetate/Diphenhydramine (Benadryl 2% Cream) 1 applic TP BID [facility] Last Admin: 03/28/16 09:34 Dose: 1 applic - Objective Vital Signs: Vital Signs Temperature 98.2 F 03/28/16 15:00 Pulse Rate 78 03/28/16 17:00 Respiratory Rate 18 03/28/16 17:00 Blood Pressure 95/58 03/28/16 17:00 O2 Sat by Pulse Oximetry (%) 95 03/28/16 11:20 Constitutional: Yes: Calm Eyes: Yes: Conjunctiva Clear HENT: Yes: Atraumatic Cardiovascular: Yes: S1, S2 Respiratory: Yes: On Nasal O2 Gastrointestinal: Yes: Soft Genitourinary: Yes: Cooper Present Musculoskeletal: Yes: Muscle Weakness Edema: No Neurological: Yes: Oriented Labs: CBC, BMP 03/28/16 05:00 03/28/16 05:00 INR, PTT INR 1.16 (0.82-1.09) H 03/15/16 05:20 Problem List - Problems (1) Hypoxia Code(s): R09.02 - HYPOXEMIA (2) Lethargy Code(s): R53.83 - OTHER FATIGUE (3) Pericardial effusion Code(s): I31.3 - PERICARDIAL EFFUSION (NONINFLAMMATORY) (4) Proteinuria Code(s): R80.9 - PROTEINURIA, UNSPECIFIED (5) Hypertension Code(s): I10 - ESSENTIAL (PRIMARY) HYPERTENSION (6) Skin cancer Code(s): C44.90 - UNSPECIFIED MALIGNANT NEOPLASM OF SKIN, UNSPECIFIED Assessment/Plan Current Medications Generic Name Dose Route Start Last Admin Trade Name Freq PRN Reason Stop Dose Admin Acetaminophen 650 mg 03/27/16 18:12 Tylenol - PO Q6H PRN FEVER OR PAIN Albuterol Sulfate 1 amp 03/27/16 22:00 03/28/16 10:25 Ventolin 0.083% Nebulizer Soln - NEB 1 amp BID [facility] Administration Albuterol/Ipratropium 1 amp 03/27/16 18:12 Duoneb - NEB Q6H PRN PAIN Bacitracin 1 applic 03/28/16 10:00 03/28/16 14:51 Bacitracin - TP 1 applic DAILY [facility] Administration Diphenhydramine HCl 25 mg 03/27/16 21:00 03/28/16 14:52 Benadryl Injection - IVPUSH 25 mg Q6H-IV [facility] Administration Docusate Sodium 100 mg 03/27/16 18:12 Colace - PO TID PRN CONSTIPATION Guaifenesin 10 ml 03/27/16 22:00 03/27/16 22:13 Robitussin - PO 10 ml HS [facility] Administration Guaifenesin 5 ml 03/27/16 18:12 Robitussin Dm - PO Q6H PRN COUGH Heparin Sodium (Porcine) 5,000 unit 03/27/16 14:00 03/28/16 13:45 Heparin - SQ 5,000 unit TID [facility] Administration Piperacillin Sod/Tazobactam Sod 50 mls @ 100 mls/hr 03/28/16 02:00 03/28/16 17: 26 Zosyn 3.375gm Ivpb (Pre-Docked) IVPB 100 mls/hr Q8H-IV [facility] Administration Metoprolol Tartrate 37.5 mg 03/27/16 22:00 03/28/16 13:45 Lopressor - PO 37.5 mg TID [facility] Administration Metoprolol Tartrate 5 mg 03/27/16 18:12 Lopressor Injection - IVPUSH Q4H PRN TACHYCARDIA Nystatin/Triamcinolone Acetonide 1 applic 03/27/16 22:00 03/28/16 09:35 Mycolog Ii Cream - TP 1 applic BID [facility] Administration Pantoprazole Sodium 40 mg 03/28/16 10:00 03/28/16 09:33 Protonix - PO 40 mg DAILY [facility] Administration Zinc Acetate/Diphenhydramine 1 applic 03/27/16 22:00 03/28/16 09:34 Benadryl 2% Cream TP 1 applic BID [facility] Administration Impression 1. pericardial effusion 2. hypoxia 3. proteinuria 4. HTN 5. skin cancer 6. congestion on cxr 7. s/p fall and laceration to head 8. hyperkalemia 9. azotemia Plan - consider starting a standing low dose of lasix daily or every other day, will discuss with cardio - renal function is stable - potassium is improved however may need supplements - will follow PRN - cont current management Dr Ruth
--- NOTE | 2016-03-28 17:45 | PN ---
Progress Note, Physician History of Present Illness: patient stable no new events noted of note wbc has increased - Current Medication List Current Medications: Active Medications Acetaminophen (Tylenol -) 650 mg PO Q6H PRN PRN Reason: FEVER OR PAIN Albuterol Sulfate (Ventolin 0.083% Nebulizer Soln -) 1 amp NEB BID [facility] Last Admin: 03/28/16 10:25 Dose: 1 amp Albuterol/Ipratropium (Duoneb -) 1 amp NEB Q6H PRN PRN Reason: PAIN Bacitracin (Bacitracin -) 1 applic TP DAILY [facility] Last Admin: 03/28/16 14:51 Dose: 1 applic Diphenhydramine HCl (Benadryl Injection -) 25 mg IVPUSH Q6H-IV [facility] Last Admin: 03/28/16 14:52 Dose: 25 mg Docusate Sodium (Colace -) 100 mg PO TID PRN PRN Reason: CONSTIPATION Guaifenesin (Robitussin -) 10 ml PO HS [facility] Last Admin: 03/27/16 22:13 Dose: 10 ml Guaifenesin (Robitussin Dm -) 5 ml PO Q6H PRN PRN Reason: COUGH Heparin Sodium (Porcine) (Heparin -) 5,000 unit SQ TID [facility] Last Admin: 03/28/16 13:45 Dose: 5,000 unit Piperacillin Sod/Tazobactam Sod (Zosyn 3.375gm Ivpb (Pre-Docked)) 50 mls @ 100 mls/hr IVPB Q8H-IV [facility] Last Admin: 03/28/16 17:26 Dose: 100 mls/hr Metoprolol Tartrate (Lopressor -) 37.5 mg PO TID [facility] Last Admin: 03/28/16 13:45 Dose: 37.5 mg Metoprolol Tartrate (Lopressor Injection -) 5 mg IVPUSH Q4H PRN PRN Reason: TACHYCARDIA Nystatin/Triamcinolone Acetonide (Mycolog Ii Cream -) 1 applic TP BID [facility] Last Admin: 03/28/16 09:35 Dose: 1 applic Pantoprazole Sodium (Protonix -) 40 mg PO DAILY [facility] Last Admin: 03/28/16 09:33 Dose: 40 mg Zinc Acetate/Diphenhydramine (Benadryl 2% Cream) 1 applic TP BID [facility] Last Admin: 03/28/16 09:34 Dose: 1 applic - Objective Vital Signs: Vital Signs Temperature 98.2 F 03/28/16 15:00 Pulse Rate 78 03/28/16 17:00 Respiratory Rate 18 03/28/16 17:00 Blood Pressure 95/58 03/28/16 17:00 O2 Sat by Pulse Oximetry (%) 95 03/28/16 11:20 Constitutional: Yes: No Distress, Calm Cardiovascular: Yes: Regular Rate and Rhythm Respiratory: Yes: Regular, Poor Air Entry Gastrointestinal: Yes: Normal Bowel Sounds, Soft Musculoskeletal: Yes: WNL Extremities: Yes: WNL Neurological: Yes: Alert, Oriented Psychiatric: Yes: Alert Labs: CBC, BMP 03/28/16 05:00 03/28/16 05:00 INR, PTT INR 1.16 (0.82-1.09) H 03/15/16 05:20 Assessment/Plan after evaluating the patient there are couple of things i am worried about one is is the patient having superimposed infection in the lungs though xray does not show any changes there might be some intra abd process Problem List - Problems (1) Hypoxia Code(s): R09.02 - HYPOXEMIA (2) Lethargy Code(s): R53.83 - OTHER FATIGUE (3) Pericardial effusion Code(s): I31.3 - PERICARDIAL EFFUSION (NONINFLAMMATORY) (4) Proteinuria Code(s): R80.9 - PROTEINURIA, UNSPECIFIED (5) Hypertension Code(s): I10 - ESSENTIAL (PRIMARY) HYPERTENSION (6) Skin cancer Code(s): C44.90 - UNSPECIFIED MALIGNANT NEOPLASM OF SKIN, UNSPECIFIED abd pain cough plan continue abx would suggest repeating wbc if wbc is going up then will need to be worked up if wbc is going down--we will taper of abx chest physio incentive linn patient doing well continue as per icu cc time 40 min
[2016-03-28] MEDS: guaiFENesin 200 MG/10 ML 10 ML UNIT-DOSE CUPS PO SCH (21:58)
[2016-03-29] MEDS: PIPERACILLIN/TAZOB 3.375 GM 50 ML IVPB SCH ×3 (01:46→17:17)
[2016-03-29] MEDS: METOPROLOL TARTRATE 25 MG TABLET (FP) PO SCH ×3 (06:25→22:19)
[2016-03-29] MEDS: HEPARIN NA (PORCINE) 5,000 UNITS/ML 1ML VIAL SQ SCH (06:25)
[2016-03-29 07:22] LABS: MCH 30.6 pg (25.7-33.7); MCHC 32.2 g/dl (32.0-36.0); MEAN PLT VOLUME 9.7 fl (7.5-11.1); PLATELET COUNT 239 K/MM3 (134-434); RDW 17.7 % (11.6-15.6); WHITE BLOOD COUNT 15.6 K/mm3 (4.0-10.0)
--- NOTE | 2016-03-29 09:44 | PN ---
Progress Note (short form) - Note Progress Note: Subjective: Called to the bedside after a rapid response was called for the patient s/p unwitnessed fall. Per the RN, the patient was brought back into bed. No loss of consciousness noted Bleeding from back of head noted, patient placed in c-collar (Unable to visualize laceration because of c-collar). Stat head CT and cervical spine CT ( patient on sq Heparin) Daughter informed of fall Current Medications Generic Name Dose Route Start Last Admin Trade Name Freq PRN Reason Stop Dose Admin Acetaminophen 650 mg 03/27/16 18:12 Tylenol - PO Q6H PRN FEVER OR PAIN Albuterol Sulfate 1 amp 03/27/16 22:00 03/28/16 22:20 Ventolin 0.083% Nebulizer Soln - NEB 1 amp BID [facility] Administration Albuterol/Ipratropium 1 amp 03/27/16 18:12 Duoneb - NEB Q6H PRN PAIN Bacitracin 1 applic 03/28/16 10:00 03/28/16 14:51 Bacitracin - TP 1 applic DAILY [facility] Administration Diphenhydramine HCl 25 mg 03/27/16 21:00 03/29/16 02:54 Benadryl Injection - IVPUSH 25 mg Q6H-IV [facility] Administration Docusate Sodium 100 mg 03/27/16 18:12 Colace - PO TID PRN CONSTIPATION Guaifenesin 10 ml 03/27/16 22:00 03/28/16 21:58 Robitussin - PO 10 ml HS [facility] Administration Guaifenesin 5 ml 03/27/16 18:12 Robitussin Dm - PO Q6H PRN COUGH Piperacillin Sod/Tazobactam Sod 50 mls @ 100 mls/hr 03/28/16 02:00 03/29/16 01: 46 Zosyn 3.375gm Ivpb (Pre-Docked) IVPB 100 mls/hr Q8H-IV [facility] Administration Metoprolol Tartrate 37.5 mg 03/27/16 22:00 03/29/16 06:25 Lopressor - PO 37.5 mg TID [facility] Administration Metoprolol Tartrate 5 mg 03/27/16 18:12 Lopressor Injection - IVPUSH Q4H PRN TACHYCARDIA Nystatin/Triamcinolone Acetonide 1 applic 03/27/16 22:00 03/28/16 22:02 Mycolog Ii Cream - TP 1 applic BID [facility] Administration Pantoprazole Sodium 40 mg 03/28/16 10:00 03/28/16 09:33 Protonix - PO 40 mg DAILY [facility] Administration Zinc Acetate/Diphenhydramine 1 applic 03/27/16 22:00 03/28/16 22:02 Benadryl 2% Cream TP 1 applic BID [facility] Administration Objective: Vital Signs Period Temp Pulse Resp BP Sys/Sanford Pulse Ox Last 24 Hr 97.8 F-98.5 F 63-83 12-18 95-115/52-77 90-95 Physical Exam: General: Acute distress HEENT: Fresh blood noted to back of head, c-collar in place Lungs: Chest with sternal incision, c/d/i Heart: RRR, S1S2 Abd: Soft, non-tender, non-distended. Normoactive bowel sounds Ext: RLE skin lesion CBCD WBC 15.6 K/mm3 (4.0-10.0) H 03/29/16 05:35 RBC 3.59 M/mm3 (3.60-5.2) L 03/29/16 05:35 Hgb 11.0 GM/dL (10.7-15.3) 03/29/16 05:35 Hct 34.1 % (32.4-45.2) 03/29/16 05:35 MCV 95.0 fl (80-96) 03/29/16 05:35 MCHC 32.2 g/dl (32.0-36.0) 03/29/16 05:35 RDW 17.7 % (11.6-15.6) H 03/29/16 05:35 Plt Count 239 K/MM3 (134-434) 03/29/16 05:35 MPV 9.7 fl (7.5-11.1) 03/29/16 05:35 CMP Sodium 136 mmol/L (136-145) 03/28/16 05:00 Potassium 4.1 mmol/L (3.5-5.1) 03/28/16 05:00 Chloride 99 mmol/L (98-107) 03/28/16 05:00 Carbon Dioxide 31 mmol/L (21-32) 03/28/16 05:00 Anion Gap 6 (8-16) L 03/28/16 05:00 BUN 13 mg/dL (7-18) 03/28/16 05:00 Creatinine 0.7 mg/dL (0.55-1.02) 03/28/16 05:00 Creat Clearance w eGFR > 60 (>60) 03/28/16 05:00 Random Glucose 132 mg/dL (74-106) H 03/28/16 05:00 Calcium 7.9 mg/dL (8.5-10.1) L 03/28/16 05:00 Total Bilirubin 0.4 mg/dL (0.2-1.0) 03/28/16 05:00 AST 42 U/L (15-37) H D 03/28/16 05:00 ALT 80 U/L (12-78) H 03/28/16 05:00 Alkaline Phosphatase 87 U/L (45-117) 03/28/16 05:00 Total Protein 5.6 g/dl (6.4-8.2) L 03/28/16 05:00 Albumin 2.0 g/dl (3.4-5.0) L 03/28/16 05:00 CARDIAC ENZYMES Creatine Kinase 11 IU/L (26-140) L 03/25/16 12:05 Troponin I 0.07 ng/ml (0.00-0.05) H 03/25/16 23:10 Microbiology 03/23/16 07:15 Blood - Peripheral Venous Blood Culture - Final NO GROWTH AFTER 5 DAYS INCUBATION 03/23/16 07:15 Blood - Peripheral Venous Blood Culture - Final NO GROWTH AFTER 5 DAYS INCUBATION 03/24/16 20:30 Urine - Urine - Catheterized Urine Culture - Final NO GROWTH OBTAINED 03/15/16 12:45 Tissue-Other AFB Smear Concentration - Final 03/15/16 12:45 Tissue-Other Mycobacterial Culture - Preliminary 03/08/16 19:15 Nasopharyngeal Swab Respiratory Virus Panel - Final 03/15/16 13:03 Tissue-Other Gram Stain - Final 03/15/16 13:03 Tissue-Other Tissue Culture - Final NO GROWTH OF AEROBIC ORGANISMS AFTER 48 HOURS INCUBATION 03/15/16 13:03 Tissue-Other Anaerobic Culture - Final NO ANAEROBES WERE ISOLATED 03/15/16 12:19 Pericardial Fluid Gram Stain - Final 03/15/16 12:19 Pericardial Fluid Body Fluid Culture - Final NO GROWTH OF AEROBIC ORGANISMS AFTER 48 HOURS INCUBATION 03/15/16 12:19 Pericardial Fluid Anaerobic Culture - Final NO ANAEROBES WERE ISOLATED 03/15/16 13:03 Tissue-Other JER Preparation - Preliminary 03/15/16 13:03 Tissue-Other Fungal Culture - Preliminary 03/08/16 21:10 Urine - Urine Clean Catch Urine Culture - Final NO GROWTH OBTAINED 03/08/16 19:15 Nasopharyngeal Swab Influenza Types A,B Antigen (ZEESHAN) - Final 03/08/16 19:15 Nasopharyngeal Swab - Final Assessment: This is a 75 year old female with PMHx of HTN, CO x2, hx of multiple falls (most recent on 03/05) who presented to the ED with decrease po intake, lethargy, dizziness and was admitted for further evaluation and management of her emergent condition. Plan: 1) MSK: S/p fall with head laceration - Unwitnessed fall today, according to RN no LOC. Patient brought to bed, c- collar placed - Stat CT head and c-spine ordered - F/u coags - Laceration repair after imaging - D/c sq Heparin 2) Cardiology: Moderate pericardial effusion s/p subxiphoid pericardial window 03/15 - Pericardial fungal culture pending - Pericardial bacterial culture negative - Pericardial fluid pathology negative for malignant cells - Appreciate CT surgery consult - Appreciate critical care consult Chest pain - Resolved - Appreciate cardiology consult Systolic heart failure - Echo reviewed moderate to severe lvef with inferior wall hypokinesis - Continue Metoprolol - Patient's BP not able to tolerate ACEi - Appreciate cardiology consult Paroxysmal A.fib - Rate controlled with Metoprolol - Systemic anticoagulation per cardiology 3) ID: Severe sepsis 2/2 pneumonia - Worsening leukocytosis - Continue Zosyn per ID - Remains afebrile - Appreciate ID consult 4) Oncology: RLE skin lesion - Imaging from [place] with lytic lesions throughout the calvarium and the cervical spine. 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 - Per multiple discussions with daughter, she has declined all malignancy workup for the patient stating she would like to get her back to [place] as soon as possible 5) F/E/N: - Pureed diet - Monitor electrolytes 6) Prophylaxis: - Heparin 5,000u sq tid 7) Dispo: - Requires ICU care CODE STATUS: FULL CODE Visit type - Emergency Visit Emergency Visit: Yes ED Registration Date: 03/09/16 Care time: The patient presented to the Emergency Department on the above date and was hospitalized for further evaluation of their emergent condition. - New Patient This patient is new to me today: No - Critical Care Critical Care patient: Yes Total Critical Care Time (in minutes): 35 Critical Care Statement: The care of this patient involved high complexity decision making to prevent further life threatening deterioration of the patient 's condition and/or to evalute & treat vital organ system(s) failure or risk of failure.
[2016-03-29 09:58] LABS: INR 1.43 (0.82-1.09); PROTHROMBIN TIME (PATIENT) 15.9 SEC (9.98-11.88)
[2016-03-29 10:01] LABS: ACTIVATED PTT 27.7 SECONDS (26.9-34.4)
--- NOTE | 2016-03-29 10:14 | PN ---
Progress Note (short form) - Note Progress Note: s: pt had fall this AM, appears comfortable, no pain currently o: Vital Signs Period Temp Pulse Resp BP Sys/[place] Pulse Ox Last 24 Hr 97.8 F-98.5 F 63-83 12-18 95-115/52-77 90-95 Constitutional: Yes: No Distress, Calm Eyes: No: Sclera Icterus Cardiovascular: Yes: Regular Rate and Rhythm, no jvd, S1, S2,. No: Gallop, Murmur, Rub Respiratory: Yes: scattered rhonchi; No: Accessory Muscle Use, Rales, Wheezes Gastrointestinal: Yes: Normal Bowel Sounds, Soft. No: Tenderness Extremities: No: Cold Edema: No Integumentary: No: Jaundice diaphoresis Neurological: Yes: Alert. Psychiatric: No: Agitated Current Medications Generic Name Dose Route Start Last Admin Trade Name Freq PRN Reason Stop Dose Admin Acetaminophen 650 mg 03/27/16 18:12 Tylenol - PO Q6H PRN FEVER OR PAIN Albuterol Sulfate 1 amp 03/27/16 22:00 03/28/16 22:20 Ventolin 0.083% Nebulizer Soln - NEB 1 amp BID JUAN Administration Albuterol/Ipratropium 1 amp 03/27/16 18:12 Duoneb - NEB Q6H PRN PAIN Bacitracin 1 applic 03/28/16 10:00 03/28/16 14:51 Bacitracin - TP 1 applic DAILY JUAN Administration Diphenhydramine HCl 25 mg 03/27/16 21:00 03/29/16 02:54 Benadryl Injection - IVPUSH 25 mg Q6H-IV JUAN Administration Docusate Sodium 100 mg 03/27/16 18:12 Colace - PO TID PRN CONSTIPATION Furosemide 20 mg 03/29/16 14:00 Lasix - PO DAILY JUAN Guaifenesin 10 ml 03/27/16 22:00 03/28/16 21:58 Robitussin - PO 10 ml HS JUAN Administration Guaifenesin 5 ml 03/27/16 18:12 Robitussin Dm - PO Q6H PRN COUGH Piperacillin Sod/Tazobactam Sod 50 mls @ 100 mls/hr 03/28/16 02:00 03/29/16 01: 46 Zosyn 3.375gm Ivpb (Pre-Docked) IVPB 100 mls/hr Q8H-IV JUAN Administration Metoprolol Tartrate 37.5 mg 03/27/16 22:00 03/29/16 06:25 Lopressor - PO 37.5 mg TID JUAN Administration Metoprolol Tartrate 5 mg 03/27/16 18:12 Lopressor Injection - IVPUSH Q4H PRN TACHYCARDIA Nystatin/Triamcinolone Acetonide 1 applic 03/27/16 22:00 03/28/16 22:02 Mycolog Ii Cream - TP 1 applic BID JUAN Administration Pantoprazole Sodium 40 mg 03/28/16 10:00 03/28/16 09:33 Protonix - PO 40 mg DAILY JUAN Administration Zinc Acetate/Diphenhydramine 1 applic 03/27/16 22:00 03/28/16 22:02 Benadryl 2% Cream TP 1 applic BID JUAN Administration CBC, BMP 03/29/16 05:35 03/28/16 05:00 Repeat chest/abd CT 03/24: Small subpleural infiltrates, rt basilar and lingular infiltrate. Small-mod pleural effusion. small-moderate pericardial effusion. No abdominal pathology. cxr 03/28: slight improvement Echo 03/09/16 : mod-sev dec lvef, inf wall hk, nl rv, mild lae, mild mr/tr, moderate pericardial eff, ?impending tamponade based on ra wall collapse Repeat echo 03/12/16: mild con LVH. mod-sev depressed LV sys func (global), 1+ MR/TR, effusion unchanged, still with early diastolic RA collapse. repeat echo 03/21/16: sev dec lvef, nl rv, mild piotr, mild mr, mod-sev tr, rvsp 40-50, trivial pericardial eff, no signs tamponade tele: sr, occ pvc's a/p: 75 f (she is 83 according to family) with hx htn, h/o LA x 2, dementia and possible recent diagnosis of cancer (unknown type), here with lethargy, weakness found to have systolic cardiomyopathy and pericardial effusion. pericardial effusion, possible acute pericarditis: -presented with moderate circumferential pericardial eff present but no signs of tamponade. clinically no signs of tamponade as well. -no obvious pericarditis, initially treated empirically with colchicine/ indomethacin but then renal fcn had worsened a little so they have been stopped -hemodynamically stable throughout, with no clinical tamponade -s/p pericardial window 03/16 (diagnostic as well) with 500 cc non-bloody fluid removed. pericardial fluid cultures, cytology pending. -repeat echo shows resolution of eff, but evidence of reaccumulation on 03/24 CT scan with symptoms of nausea. Would not diurese further. - 03/26: hemodynamically stable, bp improving. - 03/27: hemodynamically stable, bp normalized. Volume up today so will diurese. If bp drops, will plan on repeat echo to evaluate effusion. - 03/28-: ct chest reviewed by cts and she is not felt to have any significant re -accumulation of pericardial eff. bp stable today. syst chf: -echo here shows mod-sev decreased lvef with inferior hypokinesis, patient with h/o prior LA--followed by doctors in [place] where she lives, per dtr (here visiting) -cont bb, bp too low for marian-i -no angina or other signs acs, ce's negx3, ecg w/o ischemic changes or significant q waves -03/12: clinically no definite chf, exam equiovocal for JVD--monitor closely with IVF. - 03/13: Now off IVF. CXR with new rt pleural effusion. No change in effusion size or hemodynamics with IVF. gentle diuresis as mentioned above. Strict I/O' s, daily weights. -03/14-: no signs chf on exam/cxr. cont to hold lasix and ivfs for now -will defer ? of need for ischemia eval to [place] doctors (dtr states pt plans to return as soon as medically stable)--? LV dysfxn is chronic and stable -low dose BB trial as doing. ACEI trial (2.5 mg) given 03/19 but dropped blood pressures. -03/20: Bp trending down s/p lasix and lisinopril yesterday evening. will hold dose this morning. Consider resuming again tomorrow if bp remains stable. WBC rising and cough worsening. Would repeat chest CT. -03/21: still with some chf on imaging and pericardial effusion improved (small on ct chest) so will give iv lasix dose today to help with congestion. -03/22: still with some chf on cxr so agree with 40 iv lasix dose today to help with congestion. -03/23-03/24: developing signs of infection (possible multifocal pna), poor po intake. Holding diuretics. Maintenance fluids today 03/24. Continue daily weights. -03/25-03/26: BP improved signifcantly on antibiotics. Con't to hold diuresis. - 03/27: Volume up today, will give trial dose of lasix 20 mg IV x 1. -03/28: cont prn lasix for now, avoid excess ivfs -03/29: agree with renal rec, will start low dose maintenance lasix 20 po qd svt/PAT: -has had periodically during admit here. no obvious afib, cont to monitor on tele. -cont bb lethargy/weakness: -head ct w/o acute findings. likely 2/2 to aforementioned acute illnesses. -on abx per ID for possible infection as well htn: - cont bb. elevated trop: -trop borderline elevated (peak 0.28) the day after episode of prolonged SVT/ fever. Nl ck, no ischemic changes on ecgs. likely due to demand ischemia from svt overnight in setting of known CAD. Troponin now trending down. No signs of acs presently malignancy: -imaging at OSH shows lytic lesions in spine, HCP declines eval
[2016-03-29] MEDS: NYSTATIN/TRIAMCINOLONE TOPICAL CREAM 15 GM TUBE TP SCH ×2 (10:25→22:20)
[2016-03-29] MEDS: PANTOPRAZOLE 40 MG TABLET (FP) PO SCH (10:25)
[2016-03-29] MEDS: BACITRACIN 30 GM TUBE TOPICAL OINTMENT TP SCH (10:26)
[2016-03-29] MEDS: morphine CARPU-JECT 2 MG/1 ML DISP.SYRIN IVPUSH PRN (10:48)
[2016-03-29] MEDS: ALBUTEROL SO4 0.083% IH SOL 2.5 MG/3 ML VIAL.NEB. NEB SCH ×2 (10:48→22:45)
[2016-03-29] MEDS ORDERED: LIDOCAINE HCL 1%, 10 MG/ML (20ML VIAL) NR ONE (10:56)
[2016-03-29] MEDS ORDERED: LIDOCAINE HCL 1%, 10 MG/ML (20ML VIAL) ONE (11:05)
--- NOTE | 2016-03-29 11:55 | EKG ---
Test Reason : Blood Pressure : / mmHG Vent. Rate : 092 BPM Atrial Rate : 092 BPM P-R Int : 166 ms QRS Dur : 088 ms QT Int : 356 ms P-R-T Axes : 063 042 -59 degrees QTc Int : 440 ms SINUS RHYTHM WITH OCCASIONAL PREMATURE VENTRICULAR COMPLEXES CANNOT RULE OUT INFERIOR INFARCT (CITED ON OR BEFORE 25-MAR-2016) T WAVE ABNORMALITY, CONSIDER LATERAL ISCHEMIA ABNORMAL ECG WHEN COMPARED WITH ECG OF 25-MAR-2016 11:39, SINUS RHYTHM HAS REPLACED ATRIAL FIBRILLATION NONSPECIFIC T WAVE ABNORMALITY HAS REPLACED INVERTED T WAVES IN INFERIOR LEADS Confirmed by INDIA GAYTAN MD ([id number]) on 03/29/2016 11:55:07 AM Referred By: ARRON CORDOVA,SQROE Confirmed By:INDIA GAYTAN MD
--- NOTE | 2016-03-29 13:55 | PROC ---
Procedure Note Procedure: Asked to see patient by Lyn Hall NP for scalp laceration s/p fall. Patient had CT head and C-spine showing no intracranial hemorrhage or c-spine fracture. Patient's daughter present for scalp laceration repair. Posterior scalp Y- shaped laceration 4cm long repaired with 10 angelica. Laceration cleaned with hydrogen peroxide and repaired following injection of 3cc Lidocaine 1%. Patient tolerated repair well. Staple removal in approximately 7-10 days. Laceration seen and evaluated with Dr. Kang.
--- NOTE | 2016-03-29 14:46 | PN ---
Progress Note, Physician History of Present Illness: Pt seen and examined at bedside. She fell and banged her head this morning. - Current Medication List Current Medications: Active Medications Acetaminophen (Tylenol -) 650 mg PO Q6H PRN PRN Reason: FEVER OR PAIN Albuterol Sulfate (Ventolin 0.083% Nebulizer Soln -) 1 amp NEB BID [facility] Last Admin: 03/29/16 10:48 Dose: 1 amp Albuterol/Ipratropium (Duoneb -) 1 amp NEB Q6H PRN PRN Reason: PAIN Bacitracin (Bacitracin -) 1 applic TP DAILY [facility] Last Admin: 03/29/16 10:26 Dose: 1 applic Diphenhydramine HCl (Benadryl Injection -) 25 mg IVPUSH Q6H-IV [facility] Last Admin: 03/29/16 10:26 Dose: Not Given Docusate Sodium (Colace -) 100 mg PO TID PRN PRN Reason: CONSTIPATION Furosemide (Lasix -) 20 mg PO DAILY [facility] Guaifenesin (Robitussin -) 10 ml PO HS [facility] Last Admin: 03/28/16 21:58 Dose: 10 ml Guaifenesin (Robitussin Dm -) 5 ml PO Q6H PRN PRN Reason: COUGH Piperacillin Sod/Tazobactam Sod (Zosyn 3.375gm Ivpb (Pre-Docked)) 50 mls @ 100 mls/hr IVPB Q8H-IV [facility] Last Admin: 03/29/16 10:24 Dose: 100 mls/hr Metoprolol Tartrate (Lopressor -) 37.5 mg PO TID [facility] Last Admin: 03/29/16 06:25 Dose: 37.5 mg Metoprolol Tartrate (Lopressor Injection -) 5 mg IVPUSH Q4H PRN PRN Reason: TACHYCARDIA Morphine Sulfate (Morphine Injection -) 0.5 mg IVPUSH Q4H PRN PRN Reason: PAIN Last Admin: 03/29/16 10:48 Dose: 0.5 mg Nystatin/Triamcinolone Acetonide (Mycolog Ii Cream -) 1 applic TP BID [facility] Last Admin: 03/29/16 10:25 Dose: 1 applic Pantoprazole Sodium (Protonix -) 40 mg PO DAILY [facility] Last Admin: 03/29/16 10:25 Dose: Not Given Zinc Acetate/Diphenhydramine (Benadryl 2% Cream) 1 applic TP BID JUAN Last Admin: 03/29/16 10:27 Dose: 1 applic - Objective Vital Signs: Vital Signs Temperature 98.2 F 03/29/16 14:00 Pulse Rate 91 H 03/29/16 14:00 Respiratory Rate 20 03/29/16 14:00 Blood Pressure 114/51 03/29/16 14:00 O2 Sat by Pulse Oximetry (%) 95 03/29/16 10:49 Constitutional: Yes: Calm Eyes: Yes: Conjunctiva Clear HENT: Yes: Atraumatic Neck: Yes: Supple Cardiovascular: Yes: S1, S2 Respiratory: Yes: CTA Bilaterally Gastrointestinal: Yes: Soft Genitourinary: Yes: WNL Musculoskeletal: Yes: WNL Extremities: Yes: WNL Edema: No Neurological: Yes: Oriented Psychiatric: Yes: Oriented Labs: CBC, BMP 03/29/16 05:35 03/28/16 05:00 INR, PTT INR 1.43 (0.82-1.09) H 03/29/16 09:30 Problem List - Problems (1) Hypoxia Code(s): R09.02 - HYPOXEMIA (2) Lethargy Code(s): R53.83 - OTHER FATIGUE (3) Pericardial effusion Code(s): I31.3 - PERICARDIAL EFFUSION (NONINFLAMMATORY) (4) Proteinuria Code(s): R80.9 - PROTEINURIA, UNSPECIFIED (5) Hypertension Code(s): I10 - ESSENTIAL (PRIMARY) HYPERTENSION (6) Skin cancer Code(s): C44.90 - UNSPECIFIED MALIGNANT NEOPLASM OF SKIN, UNSPECIFIED Assessment/Plan Current Medications Generic Name Dose Route Start Last Admin Trade Name Freq PRN Reason Stop Dose Admin Acetaminophen 650 mg 03/27/16 18:12 Tylenol - PO Q6H PRN FEVER OR PAIN Albuterol Sulfate 1 amp 03/27/16 22:00 03/29/16 10:48 Ventolin 0.083% Nebulizer Soln - NEB 1 amp BID JUAN Administration Albuterol/Ipratropium 1 amp 03/27/16 18:12 Duoneb - NEB Q6H PRN PAIN Bacitracin 1 applic 03/28/16 10:00 03/29/16 10:26 Bacitracin - TP 1 applic DAILY JUAN Administration Diphenhydramine HCl 25 mg 03/27/16 21:00 03/29/16 10:26 Benadryl Injection - IVPUSH Not Given Q6H-IV JUAN Docusate Sodium 100 mg 03/27/16 18:12 Colace - PO TID PRN CONSTIPATION Furosemide 20 mg 03/29/16 14:00 Lasix - PO DAILY JUAN Guaifenesin 10 ml 03/27/16 22:00 03/28/16 21:58 Robitussin - PO 10 ml HS JUAN Administration Guaifenesin 5 ml 03/27/16 18:12 Robitussin Dm - PO Q6H PRN COUGH Piperacillin Sod/Tazobactam Sod 50 mls @ 100 mls/hr 03/28/16 02:00 03/29/16 10: 24 Zosyn 3.375gm Ivpb (Pre-Docked) IVPB 100 mls/hr Q8H-IV JUAN Administration Metoprolol Tartrate 37.5 mg 03/27/16 22:00 03/29/16 06:25 Lopressor - PO 37.5 mg TID JUAN Administration Metoprolol Tartrate 5 mg 03/27/16 18:12 Lopressor Injection - IVPUSH Q4H PRN TACHYCARDIA Morphine Sulfate 0.5 mg 03/29/16 10:25 03/29/16 10:48 Morphine Injection - IVPUSH 0.5 mg Q4H PRN Administration PAIN Nystatin/Triamcinolone Acetonide 1 applic 03/27/16 22:00 03/29/16 10:25 Mycolog Ii Cream - TP 1 applic BID JUAN Administration Pantoprazole Sodium 40 mg 03/28/16 10:00 03/29/16 10:25 Protonix - PO Not Given DAILY JUAN Zinc Acetate/Diphenhydramine 1 applic 03/27/16 22:00 03/29/16 10:27 Benadryl 2% Cream TP 1 applic BID JUAN Administration Impression 1. pericardial effusion 2. hypoxia 3. proteinuria 4. HTN 5. skin cancer 6. congestion on cxr 7. s/p fall and laceration to head 8. hyperkalemia 9. azotemia Plan - cont with low dose PO lasix - check bmp - follow up ct scan - avoid sedatives - cont current management Dr Ruth
--- NOTE | 2016-03-29 14:55 | PN ---
Progress Note (short form) - Note Progress Note: Events noted. S/P with scalp laceration that required repair. No CP or SOB. CXR: Pleural effusions Intake & Output 03/26/16 03/27/16 03/28/16 03/29/16 23:59 23:59 23:59 23:59 Intake Total 750 1160 800 220 Output Total 700 650 850 100 Balance 50 510 -50 120 Weight 116 lb 5 oz 113 lb 114 lb 116 lb Last Vital Signs Temp Pulse Resp BP Pulse Ox 98.2 F 91 H 20 114/51 95 03/29/16 14:00 03/29/16 14:00 03/29/16 14:00 03/29/16 14:00 03/29/16 10:49 Active Medications Acetaminophen (Tylenol -) 650 mg PO Q6H PRN PRN Reason: FEVER OR PAIN Albuterol Sulfate (Ventolin 0.083% Nebulizer Soln -) 1 amp NEB BID [facility] Last Admin: 03/29/16 10:48 Dose: 1 amp Albuterol/Ipratropium (Duoneb -) 1 amp NEB Q6H PRN PRN Reason: PAIN Bacitracin (Bacitracin -) 1 applic TP DAILY [facility] Last Admin: 03/29/16 10:26 Dose: 1 applic Diphenhydramine HCl (Benadryl Injection -) 25 mg IVPUSH Q6H-IV [facility] Last Admin: 03/29/16 10:26 Dose: Not Given Docusate Sodium (Colace -) 100 mg PO TID PRN PRN Reason: CONSTIPATION Furosemide (Lasix -) 20 mg PO DAILY [facility] Guaifenesin (Robitussin -) 10 ml PO HS [facility] Last Admin: 03/28/16 21:58 Dose: 10 ml Guaifenesin (Robitussin Dm -) 5 ml PO Q6H PRN PRN Reason: COUGH Piperacillin Sod/Tazobactam Sod (Zosyn 3.375gm Ivpb (Pre-Docked)) 50 mls @ 100 mls/hr IVPB Q8H-IV JUAN Last Admin: 03/29/16 10:24 Dose: 100 mls/hr Metoprolol Tartrate (Lopressor -) 37.5 mg PO TID [facility] Last Admin: 03/29/16 06:25 Dose: 37.5 mg Metoprolol Tartrate (Lopressor Injection -) 5 mg IVPUSH Q4H PRN PRN Reason: TACHYCARDIA Morphine Sulfate (Morphine Injection -) 0.5 mg IVPUSH Q4H PRN PRN Reason: PAIN Last Admin: 03/29/16 10:48 Dose: 0.5 mg Nystatin/Triamcinolone Acetonide (Mycolog Ii Cream -) 1 applic TP BID [facility] Last Admin: 03/29/16 10:25 Dose: 1 applic Pantoprazole Sodium (Protonix -) 40 mg PO DAILY [facility] Last Admin: 03/29/16 10:25 Dose: Not Given Zinc Acetate/Diphenhydramine (Benadryl 2% Cream) 1 applic TP BID [facility] Last Admin: 03/29/16 10:27 Dose: 1 applic Gen: NAD at rest Heart: RRR Lung: decreased breath sounds at the bases Abd: soft, nontender, (+) BS Ext: no edema Laboratory Results - last 24 hr 03/29/16 03/29/16 05:35 09:30 WBC 15.6 H RBC 3.59 L Hgb 11.0 Hct 34.1 MCV 95.0 MCHC 32.2 RDW 17.7 H Plt Count 239 MPV 9.7 INR 1.43 H PTT (Actin FS) 27.7 ASSESSMENT AND PLAN: S/P Fall with scalp laceration Paroxysmal Atrial Fibrillation now in sinus Pericardial Effusion Early Cardiac Tamponade s/p Pericardial Window LV Systolic Dysfunction Hypoxia resolved HTN Dementia - ABX per ID - O2 as needed - Local wound care - Lasix - Fall precautions Dr Ospina
[2016-03-29] MEDS: FUROSEMIDE 20 MG TABLET (FP) PO SCH (15:07)
--- NOTE | 2016-03-29 16:30 | EKG ---
Test Reason : Blood Pressure : / mmHG Vent. Rate : 135 BPM Atrial Rate : 192 BPM P-R Int : 000 ms QRS Dur : 092 ms QT Int : 310 ms P-R-T Axes : 000 053 255 degrees QTc Int : 465 ms ATRIAL FIBRILLATION WITH RAPID VENTRICULAR RESPONSE CANNOT RULE OUT INFERIOR INFARCT (CITED ON OR BEFORE 20-MAR-2016) ABNORMAL ECG WHEN COMPARED WITH ECG OF 24-MAR-2016 09:44, ATRIAL FIBRILLATION HAS REPLACED SINUS RHYTHM QUESTIONABLE CHANGE IN INITIAL FORCES OF INFERIOR LEADS NON-SPECIFIC CHANGE IN ST SEGMENT IN ANTERIOR LEADS INVERTED T WAVES HAVE REPLACED NONSPECIFIC T WAVE ABNORMALITY IN INFERIOR LEADS Confirmed by INDIA GAYTAN MD ([id number]) on 03/29/2016 4:30:20 PM Referred By: Confirmed By:INDIA GAYTAN MD
--- NOTE | 2016-03-29 16:32 | RAPID ---
Physical Examination Vital Signs: Vital Signs Temperature 98.2 F 03/29/16 14:00 Pulse Rate 91 H 03/29/16 14:00 Respiratory Rate 20 03/29/16 14:00 Blood Pressure 114/51 03/29/16 14:00 O2 Sat by Pulse Oximetry (%) 95 03/29/16 10:49 Constitutional: Yes: Other (non-Belarusian speaking, confused) HENT: Yes: Other (bleeding from back of her head) Labs: CBC, BMP 03/29/16 05:35 03/28/16 05:00 Rapid Response - Rapid Response Assessment: Responded to RRP, arrived at scene, patient was being picked up by nurses. Active bleeding was seen on the back of her head. Per nurse, her roommate heard a bang over the curtain and called the nurse right away. Gauze and pressure applied on the wound and patient was put back in bed immediately. Vitals were checked immediately and they were all within normal limits. Patient was confused and not following commands. CT head was ordered. Recommendations/Interventions: Restrain; Bed rest with fall precaution; Head CT w/o contrast. Critical Care Total Critical Care Time (in minutes): 30 Critical Care Statement: The care of this patient involved high complexity decision making to prevent further life threatening deterioration of the patient 's condition and/or to evalute & treat vital organ system(s) failure or risk of failure.
--- NOTE | 2016-03-29 16:38 | EKG ---
Test Reason : Blood Pressure : / mmHG Vent. Rate : 167 BPM Atrial Rate : 110 BPM P-R Int : 000 ms QRS Dur : 090 ms QT Int : 286 ms P-R-T Axes : 000 014 257 degrees QTc Int : 477 ms SUPRAVENTRICULAR TACHYCARDIA INFERIOR INFARCT (CITED ON OR BEFORE 08-MAR-2016) CANNOT RULE OUT ANTERIOR INFARCT , AGE UNDETERMINED ABNORMAL ECG WHEN COMPARED WITH ECG OF 20-MAR-2016 06:17, ATRIAL FIBRILLATION HAS REPLACED SINUS RHYTHM VENT. RATE HAS INCREASED BY [address] NOW DEPRESSED IN LATERAL LEADS Confirmed by INDIA GAYTAN MD ([id number]) on 03/29/2016 4:38:23 PM Referred By: Confirmed By:INDIA GAYTAN MD
--- NOTE | 2016-03-29 18:09 | PN ---
Progress Note, Physician History of Present Illness: events noted patient fell stable now - Current Medication List Current Medications: Active Medications Acetaminophen (Tylenol -) 650 mg PO Q6H PRN PRN Reason: FEVER OR PAIN Albuterol Sulfate (Ventolin 0.083% Nebulizer Soln -) 1 amp NEB BID [facility] Last Admin: 03/29/16 10:48 Dose: 1 amp Albuterol/Ipratropium (Duoneb -) 1 amp NEB Q6H PRN PRN Reason: PAIN Bacitracin (Bacitracin -) 1 applic TP DAILY [facility] Last Admin: 03/29/16 10:26 Dose: 1 applic Diphenhydramine HCl (Benadryl Injection -) 25 mg IVPUSH Q6H-IV [facility] Last Admin: 03/29/16 15:08 Dose: Not Given Docusate Sodium (Colace -) 100 mg PO TID PRN PRN Reason: CONSTIPATION Furosemide (Lasix -) 20 mg PO DAILY [facility] Last Admin: 03/29/16 15:07 Dose: 20 mg Guaifenesin (Robitussin -) 10 ml PO HS [facility] Last Admin: 03/28/16 21:58 Dose: 10 ml Guaifenesin (Robitussin Dm -) 5 ml PO Q6H PRN PRN Reason: COUGH Metoprolol Tartrate (Lopressor -) 37.5 mg PO TID [facility] Last Admin: 03/29/16 14:00 Dose: 37.5 mg Metoprolol Tartrate (Lopressor Injection -) 5 mg IVPUSH Q4H PRN PRN Reason: TACHYCARDIA Morphine Sulfate (Morphine Injection -) 0.5 mg IVPUSH Q4H PRN PRN Reason: PAIN Last Admin: 03/29/16 10:48 Dose: 0.5 mg Nystatin/Triamcinolone Acetonide (Mycolog Ii Cream -) 1 applic TP BID [facility] Last Admin: 03/29/16 10:25 Dose: 1 applic Pantoprazole Sodium (Protonix -) 40 mg PO DAILY [facility] Last Admin: 03/29/16 10:25 Dose: Not Given Zinc Acetate/Diphenhydramine (Benadryl 2% Cream) 1 applic TP BID [facility] Last Admin: 03/29/16 10:27 Dose: 1 applic - Objective Vital Signs: Vital Signs Temperature 98 F 03/29/16 17:26 Pulse Rate 78 03/29/16 17:26 Respiratory Rate 18 03/29/16 17:26 Blood Pressure 110/60 03/29/16 17:26 O2 Sat by Pulse Oximetry (%) 95 03/29/16 10:49 Constitutional: Yes: No Distress, Calm Cardiovascular: Yes: Regular Rate and Rhythm Respiratory: Yes: Regular, Poor Air Entry Gastrointestinal: Yes: Normal Bowel Sounds, Soft Musculoskeletal: Yes: WNL Extremities: Yes: WNL Neurological: Yes: Alert Psychiatric: Yes: Alert Labs: CBC, BMP 03/29/16 05:35 03/28/16 05:00 INR, PTT INR 1.43 (0.82-1.09) H 03/29/16 09:30 Assessment/Plan after evaluating the patient there are couple of things i am worried about one is is the patient having superimposed infection in the lungs though xray does not show any changes there might be some intra abd process Problem List - Problems (1) Hypoxia Code(s): R09.02 - HYPOXEMIA (2) Lethargy Code(s): R53.83 - OTHER FATIGUE (3) Pericardial effusion Code(s): I31.3 - PERICARDIAL EFFUSION (NONINFLAMMATORY) (4) Proteinuria Code(s): R80.9 - PROTEINURIA, UNSPECIFIED (5) Hypertension Code(s): I10 - ESSENTIAL (PRIMARY) HYPERTENSION (6) Skin cancer Code(s): C44.90 - UNSPECIFIED MALIGNANT NEOPLASM OF SKIN, UNSPECIFIED abd pain cough plan will stop abx continue to follow wbc
[2016-03-29] MEDS: ACETAMINOPHEN 325 MG TABLET (FP) PO PRN (22:20)
[2016-03-29] MEDS: guaiFENesin 200 MG/10 ML 10 ML UNIT-DOSE CUPS PO SCH (22:20)
[2016-03-30] MEDS: METOPROLOL TARTRATE 25 MG TABLET (FP) PO SCH ×3 (05:59→23:00)
[2016-03-30 08:46] LABS: CALCIUM 8.5 mg/dL (8.5-10.1); CREATININE 0.6 mg/dL (0.55-1.02)
[2016-03-30] MEDS ORDERED: PT OWN MED DRAWER 7, Y5N ONE (08:47)
[2016-03-30] MEDS: BACITRACIN 30 GM TUBE TOPICAL OINTMENT TP SCH (09:24)
[2016-03-30] MEDS: PANTOPRAZOLE 40 MG TABLET (FP) PO SCH (09:24)
[2016-03-30] MEDS: NYSTATIN/TRIAMCINOLONE TOPICAL CREAM 15 GM TUBE TP SCH ×2 (09:24→23:00)
[2016-03-30] MEDS: FUROSEMIDE 20 MG TABLET (FP) PO SCH (09:24)
[2016-03-30] MEDS: ALBUTEROL SO4 0.083% IH SOL 2.5 MG/3 ML VIAL.NEB. NEB SCH ×2 (10:06→22:03)
--- NOTE | 2016-03-30 10:59 | PN ---
Progress Note (short form) - Note Progress Note: s: confused at baseline (even with translation); appears comfortable, no pain currently o: Vital Signs Period Temp Pulse Resp BP Sys/Sanford Pulse Ox Last 24 Hr 97.3 F-99.0 F 76-91 18-20 94-130/49-62 97-98 Constitutional: Yes: No Distress, Calm Eyes: No: Sclera Icterus Cardiovascular: Yes: Regular Rate and Rhythm, no jvd, S1, S2,. No: Gallop, Murmur, Rub Respiratory: Yes: scattered rhonchi; No: Accessory Muscle Use, Rales, Wheezes Gastrointestinal: Yes: Normal Bowel Sounds, Soft. No: Tenderness Extremities: No: Cold Edema: No Integumentary: No: Jaundice diaphoresis Neurological: lethargic but arousable Psychiatric: No: Agitated Current Medications Generic Name Dose Route Start Last Admin Trade Name Freq PRN Reason Stop Dose Admin Acetaminophen 650 mg 03/27/16 18:12 03/29/16 22:20 Tylenol - PO 650 mg Q6H PRN Administration FEVER OR PAIN Albuterol Sulfate 1 amp 03/27/16 22:00 03/30/16 10:06 Ventolin 0.083% Nebulizer Soln - NEB 1 amp BID JUAN Administration Albuterol/Ipratropium 1 amp 03/27/16 18:12 Duoneb - NEB Q6H PRN PAIN Bacitracin 1 applic 03/28/16 10:00 03/30/16 09:24 Bacitracin - TP 1 applic DAILY JUAN Administration Diphenhydramine HCl 25 mg 03/27/16 21:00 03/30/16 09:22 Benadryl Injection - IVPUSH 25 mg Q6H-IV JUAN Administration Docusate Sodium 100 mg 03/27/16 18:12 Colace - PO TID PRN CONSTIPATION Furosemide 20 mg 03/29/16 14:00 03/30/16 09:24 Lasix - PO 20 mg DAILY JUAN Administration Guaifenesin 10 ml 03/27/16 22:00 03/29/16 22:20 Robitussin - PO 10 ml HS JUAN Administration Guaifenesin 5 ml 03/27/16 18:12 Robitussin Dm - PO Q6H PRN COUGH Metoprolol Tartrate 37.5 mg 03/27/16 22:00 03/30/16 05:59 Lopressor - PO 37.5 mg TID JUAN Administration Metoprolol Tartrate 5 mg 03/27/16 18:12 Lopressor Injection - IVPUSH Q4H PRN TACHYCARDIA Morphine Sulfate 0.5 mg 03/29/16 10:25 03/29/16 10:48 Morphine Injection - IVPUSH 0.5 mg Q4H PRN Administration PAIN Nystatin/Triamcinolone Acetonide 1 applic 03/27/16 22:00 03/30/16 09:24 Mycolog Ii Cream - TP 1 applic BID JUAN Administration Pantoprazole Sodium 40 mg 03/28/16 10:00 03/30/16 09:24 Protonix - PO 40 mg DAILY JUAN Administration Zinc Acetate/Diphenhydramine 1 applic 03/27/16 22:00 03/30/16 09:24 Benadryl 2% Cream TP 1 applic BID JUAN Administration CBC, BMP 03/29/16 05:35 03/30/16 06:05 Repeat chest/abd CT 03/24: Small subpleural infiltrates, rt basilar and lingular infiltrate. Small-mod pleural effusion. small-moderate pericardial effusion. No abdominal pathology. cxr 03/28: slight improvement Echo 03/09/16 : mod-sev dec lvef, inf wall hk, nl rv, mild lae, mild mr/tr, moderate pericardial eff, ?impending tamponade based on ra wall collapse Repeat echo 03/12/16: mild con LVH. mod-sev depressed LV sys func (global), 1+ MR/TR, effusion unchanged, still with early diastolic RA collapse. repeat echo 03/21/16: sev dec lvef, nl rv, mild piotr, mild mr, mod-sev tr, rvsp 40-50, trivial pericardial eff, no signs tamponade tele: sr, occ pvc's a/p: 75 f (she is 83 according to family) with hx htn, h/o MA x 2, dementia and possible recent diagnosis of cancer (unknown type), here with lethargy, weakness found to have systolic cardiomyopathy and pericardial effusion. pericardial effusion, possible acute pericarditis: -presented with moderate circumferential pericardial eff present but no signs of tamponade. clinically no signs of tamponade as well. -no obvious pericarditis, initially treated empirically with colchicine/ indomethacin but then renal fcn had worsened a little so they have been stopped -hemodynamically stable throughout, with no clinical tamponade -s/p pericardial window 03/16 (diagnostic as well) with 500 cc non-bloody fluid removed. pericardial fluid cultures, cytology pending. -repeat echo shows resolution of eff, but evidence of reaccumulation on 03/24 CT scan with symptoms of nausea. Would not diurese further. - 03/26: hemodynamically stable, bp improving. - 03/27: hemodynamically stable, bp normalized. Volume up today so will diurese. If bp drops, will plan on repeat echo to evaluate effusion. - 03/28-: ct chest reviewed by cts and she is not felt to have any significant re -accumulation of pericardial eff. bp stable today. syst chf: -echo here shows mod-sev decreased lvef with inferior hypokinesis, patient with h/o prior MA--followed by doctors in [place] where she lives, per dtr (here visiting) -cont bb, bp too low for marian-i -no angina or other signs acs, ce's negx3, ecg w/o ischemic changes or significant q waves -03/12: clinically no definite chf, exam equiovocal for JVD--monitor closely with IVF. - 03/13: Now off IVF. CXR with new rt pleural effusion. No change in effusion size or hemodynamics with IVF. gentle diuresis as mentioned above. Strict I/O' s, daily weights. -03/14-: no signs chf on exam/cxr. cont to hold lasix and ivfs for now -will defer ? of need for ischemia eval to [facility] doctors (dtr states pt plans to return as soon as medically stable)--? LV dysfxn is chronic and stable -low dose BB trial as doing. ACEI trial (2.5 mg) given 03/19 but dropped blood pressures. -03/20: Bp trending down s/p lasix and lisinopril yesterday evening. will hold dose this morning. Consider resuming again tomorrow if bp remains stable. WBC rising and cough worsening. Would repeat chest CT. -03/21: still with some chf on imaging and pericardial effusion improved (small on ct chest) so will give iv lasix dose today to help with congestion. -03/22: still with some chf on cxr so agree with 40 iv lasix dose today to help with congestion. -03/23-03/24: developing signs of infection (possible multifocal pna), poor po intake. Holding diuretics. Maintenance fluids today 03/24. Continue daily weights. -03/25-03/26: BP improved signifcantly on antibiotics. Con't to hold diuresis. - 03/27: Volume up today, will give trial dose of lasix 20 mg IV x 1. -03/28: cont prn lasix for now, avoid excess ivfs -03/29-: cont low dose maintenance lasix 20 po qd svt/PAT: -has had periodically during admit here. no obvious afib, cont to monitor on tele. -cont bb lethargy/weakness: -head ct w/o acute findings. likely 2/2 to aforementioned acute illnesses. htn: - cont bb. elevated trop: -trop borderline elevated (peak 0.28) the day after episode of prolonged SVT/ fever. Nl ck, no ischemic changes on ecgs. likely due to demand ischemia from svt overnight in setting of known CAD. Troponin trended down. No signs of acs presently malignancy: -imaging at OSH shows lytic lesions in spine, HCP declines eval
[2016-03-30] MEDS: morphine CARPU-JECT 2 MG/1 ML DISP.SYRIN IVPUSH PRN (13:42)
--- NOTE | 2016-03-30 13:55 | PN ---
Progress Note, Physician History of Present Illness: Pt seen and examined at bedside. She is laying in bed. - Current Medication List Current Medications: Active Medications Acetaminophen (Tylenol -) 650 mg PO Q6H PRN PRN Reason: FEVER OR PAIN Last Admin: 03/29/16 22:20 Dose: 650 mg Albuterol Sulfate (Ventolin 0.083% Nebulizer Soln -) 1 amp NEB BID [facility] Last Admin: 03/30/16 10:06 Dose: 1 amp Albuterol/Ipratropium (Duoneb -) 1 amp NEB Q6H PRN PRN Reason: PAIN Bacitracin (Bacitracin -) 1 applic TP DAILY [facility] Last Admin: 03/30/16 09:24 Dose: 1 applic Diphenhydramine HCl (Benadryl Injection -) 25 mg IVPUSH Q6H-IV JUAN Last Admin: 03/30/16 09:22 Dose: 25 mg Docusate Sodium (Colace -) 100 mg PO TID PRN PRN Reason: CONSTIPATION Furosemide (Lasix -) 20 mg PO DAILY [facility] Last Admin: 03/30/16 09:24 Dose: 20 mg Guaifenesin (Robitussin -) 10 ml PO HS [facility] Last Admin: 03/29/16 22:20 Dose: 10 ml Guaifenesin (Robitussin Dm -) 5 ml PO Q6H PRN PRN Reason: COUGH Metoprolol Tartrate (Lopressor -) 37.5 mg PO TID [facility] Last Admin: 03/30/16 13:43 Dose: 37.5 mg Metoprolol Tartrate (Lopressor Injection -) 5 mg IVPUSH Q4H PRN PRN Reason: TACHYCARDIA Morphine Sulfate (Morphine Injection -) 0.5 mg IVPUSH Q4H PRN PRN Reason: PAIN Last Admin: 03/30/16 13:42 Dose: 0.5 mg Nystatin/Triamcinolone Acetonide (Mycolog Ii Cream -) 1 applic TP BID [facility] Last Admin: 03/30/16 09:24 Dose: 1 applic Pantoprazole Sodium (Protonix -) 40 mg PO DAILY [facility] Last Admin: 03/30/16 09:24 Dose: 40 mg Zinc Acetate/Diphenhydramine (Benadryl 2% Cream) 1 applic TP BID [facility] Last Admin: 03/30/16 09:24 Dose: 1 applic - Objective Vital Signs: Vital Signs Temperature 99.1 F 03/30/16 10:00 Pulse Rate 81 03/30/16 10:06 Respiratory Rate 18 03/30/16 10:00 Blood Pressure 98/36 03/30/16 10:00 O2 Sat by Pulse Oximetry (%) 98 03/30/16 10:06 Constitutional: Yes: Calm Cardiovascular: Yes: S1, S2 Respiratory: Yes: On Nasal O2 Gastrointestinal: Yes: Soft Genitourinary: Yes: WNL Musculoskeletal: Yes: Muscle Weakness Edema: No Neurological: Yes: Confusion Labs: CBC, BMP 03/29/16 05:35 03/30/16 06:05 INR, PTT INR 1.43 (0.82-1.09) H 03/29/16 09:30 - ....Imaging Cat Scan: Report Reviewed Problem List - Problems (1) Hypoxia Code(s): R09.02 - HYPOXEMIA (2) Lethargy Code(s): R53.83 - OTHER FATIGUE (3) Pericardial effusion Code(s): I31.3 - PERICARDIAL EFFUSION (NONINFLAMMATORY) (4) Proteinuria Code(s): R80.9 - PROTEINURIA, UNSPECIFIED (5) Hypertension Code(s): I10 - ESSENTIAL (PRIMARY) HYPERTENSION (6) Skin cancer Code(s): C44.90 - UNSPECIFIED MALIGNANT NEOPLASM OF SKIN, UNSPECIFIED Assessment/Plan Current Medications Generic Name Dose Route Start Last Admin Trade Name Freq PRN Reason Stop Dose Admin Acetaminophen 650 mg 03/27/16 18:12 03/29/16 22:20 Tylenol - PO 650 mg Q6H PRN Administration FEVER OR PAIN Albuterol Sulfate 1 amp 03/27/16 22:00 03/30/16 10:06 Ventolin 0.083% Nebulizer Soln - NEB 1 amp BID JUAN Administration Albuterol/Ipratropium 1 amp 03/27/16 18:12 Duoneb - NEB Q6H PRN PAIN Bacitracin 1 applic 03/28/16 10:00 03/30/16 09:24 Bacitracin - TP 1 applic DAILY JUAN Administration Diphenhydramine HCl 25 mg 03/27/16 21:00 03/30/16 09:22 Benadryl Injection - IVPUSH 25 mg Q6H-IV JUAN Administration Docusate Sodium 100 mg 03/27/16 18:12 Colace - PO TID PRN CONSTIPATION Furosemide 20 mg 03/29/16 14:00 03/30/16 09:24 Lasix - PO 20 mg DAILY JUAN Administration Guaifenesin 10 ml 03/27/16 22:00 03/29/16 22:20 Robitussin - PO 10 ml HS JUAN Administration Guaifenesin 5 ml 03/27/16 18:12 Robitussin Dm - PO Q6H PRN COUGH Metoprolol Tartrate 37.5 mg 03/27/16 22:00 03/30/16 13:43 Lopressor - PO 37.5 mg TID JUAN Administration Metoprolol Tartrate 5 mg 03/27/16 18:12 Lopressor Injection - IVPUSH Q4H PRN TACHYCARDIA Morphine Sulfate 0.5 mg 03/29/16 10:25 03/30/16 13:42 Morphine Injection - IVPUSH 0.5 mg Q4H PRN Administration PAIN Nystatin/Triamcinolone Acetonide 1 applic 03/27/16 22:00 03/30/16 09:24 Mycolog Ii Cream - TP 1 applic BID JUAN Administration Pantoprazole Sodium 40 mg 03/28/16 10:00 03/30/16 09:24 Protonix - PO 40 mg DAILY JUAN Administration Zinc Acetate/Diphenhydramine 1 applic 03/27/16 22:00 03/30/16 09:24 Benadryl 2% Cream TP 1 applic BID JUAN Administration Impression 1. pericardial effusion 2. hypoxia 3. proteinuria 4. HTN 5. skin cancer 6. congestion on cxr 7. s/p fall and laceration to head 8. hyperkalemia 9. azotemia Plan - renal function is stable - encourage PO intake - will follow PRN - cont current management Dr Ruth
--- NOTE | 2016-03-30 13:56 | PN ---
[id number] bedside, she is confused. Appears to not be in any acute distress Current Medications Generic Name Dose Route Start Last Admin Trade Name Freq PRN Reason Stop Dose Admin Acetaminophen 650 mg 03/27/16 18:12 03/29/16 22:20 Tylenol - PO 650 mg Q6H PRN Administration FEVER OR PAIN Albuterol Sulfate 1 amp 03/27/16 22:00 03/30/16 10:06 Ventolin 0.083% Nebulizer Soln - NEB 1 amp BID JUAN Administration Albuterol/Ipratropium 1 amp 03/27/16 18:12 Duoneb - NEB Q6H PRN PAIN Bacitracin 1 applic 03/28/16 10:00 03/30/16 09:24 Bacitracin - TP 1 applic DAILY JUAN Administration Diphenhydramine HCl 25 mg 03/27/16 21:00 03/30/16 09:22 Benadryl Injection - IVPUSH 25 mg Q6H-IV JUAN Administration Docusate Sodium 100 mg 03/27/16 18:12 Colace - PO TID PRN CONSTIPATION Furosemide 20 mg 03/29/16 14:00 03/30/16 09:24 Lasix - PO 20 mg DAILY JUAN Administration Guaifenesin 10 ml 03/27/16 22:00 03/29/16 22:20 Robitussin - PO 10 ml HS JUAN Administration Guaifenesin 5 ml 03/27/16 18:12 Robitussin Dm - PO Q6H PRN COUGH Metoprolol Tartrate 37.5 mg 03/27/16 22:00 03/30/16 13:43 Lopressor - PO 37.5 mg TID JUAN Administration Metoprolol Tartrate 5 mg 03/27/16 18:12 Lopressor Injection - IVPUSH Q4H PRN TACHYCARDIA Morphine Sulfate 0.5 mg 03/29/16 10:25 03/30/16 13:42 Morphine Injection - IVPUSH 0.5 mg Q4H PRN Administration PAIN Nystatin/Triamcinolone Acetonide 1 applic 03/27/16 22:00 03/30/16 09:24 Mycolog Ii Cream - TP 1 applic BID JUAN Administration Pantoprazole Sodium 40 mg 03/28/16 10:00 03/30/16 09:24 Protonix - PO 40 mg DAILY JUAN Administration Zinc Acetate/Diphenhydramine 1 applic 03/27/16 22:00 03/30/16 09:24 Benadryl 2% Cream TP 1 applic BID JUAN Administration Objective: Vital Signs Period Temp Pulse Resp BP Sys/Sanford Pulse Ox Last 24 Hr 97.3 F-99.1 F 76-91 18-20 94-115/36-62 97-98 Physical Exam: General: Acute distress HEENT: Back of head with gina, dried blood Lungs: Chest with sternal incision, c/d/i Heart: RRR, S1S2 Abd: Soft, non-tender, non-distended. Normoactive bowel sounds Ext: RLE skin lesion CBCD WBC 15.6 K/mm3 (4.0-10.0) H 03/29/16 05:35 RBC 3.59 M/mm3 (3.60-5.2) L 03/29/16 05:35 Hgb 11.0 GM/dL (10.7-15.3) 03/29/16 05:35 Hct 34.1 % (32.4-45.2) 03/29/16 05:35 MCV 95.0 fl (80-96) 03/29/16 05:35 MCHC 32.2 g/dl (32.0-36.0) 03/29/16 05:35 RDW 17.7 % (11.6-15.6) H 03/29/16 05:35 Plt Count 239 K/MM3 (134-434) 03/29/16 05:35 MPV 9.7 fl (7.5-11.1) 03/29/16 05:35 CMP Sodium 136 mmol/L (136-145) 03/30/16 06:05 Potassium 5.0 mmol/L (3.5-5.1) D 03/30/16 06:05 Chloride 99 mmol/L (98-107) 03/30/16 06:05 Carbon Dioxide 30 mmol/L (21-32) 03/30/16 06:05 Anion Gap 7 (8-16) L 03/30/16 06:05 BUN 13 mg/dL (7-18) 03/30/16 06:05 Creatinine 0.6 mg/dL (0.55-1.02) 03/30/16 06:05 Creat Clearance w eGFR > 60 (>60) 03/28/16 05:00 Random Glucose 139 mg/dL (74-106) H 03/30/16 06:05 Calcium 8.5 mg/dL (8.5-10.1) 03/30/16 06:05 Total Bilirubin 0.4 mg/dL (0.2-1.0) 03/28/16 05:00 AST 42 U/L (15-37) H D 03/28/16 05:00 ALT 80 U/L (12-78) H 03/28/16 05:00 Alkaline Phosphatase 87 U/L (45-117) 03/28/16 05:00 Total Protein 5.6 g/dl (6.4-8.2) L 03/28/16 05:00 Albumin 2.0 g/dl (3.4-5.0) L 03/28/16 05:00 CARDIAC ENZYMES Creatine Kinase 11 IU/L (26-140) L 03/25/16 12:05 Troponin I 0.07 ng/ml (0.00-0.05) H 03/25/16 23:10 Microbiology 03/23/16 07:15 Blood - Peripheral Venous Blood Culture - Final NO GROWTH AFTER 5 DAYS INCUBATION 03/23/16 07:15 Blood - Peripheral Venous Blood Culture - Final NO GROWTH AFTER 5 DAYS INCUBATION 03/24/16 20:30 Urine - Urine - Catheterized Urine Culture - Final NO GROWTH OBTAINED 03/15/16 12:45 Tissue-Other AFB Smear Concentration - Final 03/15/16 12:45 Tissue-Other Mycobacterial Culture - Preliminary 03/08/16 19:15 Nasopharyngeal Swab Respiratory Virus Panel - Final 03/15/16 13:03 Tissue-Other Gram Stain - Final 03/15/16 13:03 Tissue-Other Tissue Culture - Final NO GROWTH OF AEROBIC ORGANISMS AFTER 48 HOURS INCUBATION 03/15/16 13:03 Tissue-Other Anaerobic Culture - Final NO ANAEROBES WERE ISOLATED 03/15/16 12:19 Pericardial Fluid Gram Stain - Final 03/15/16 12:19 Pericardial Fluid Body Fluid Culture - Final NO GROWTH OF AEROBIC ORGANISMS AFTER 48 HOURS INCUBATION 03/15/16 12:19 Pericardial Fluid Anaerobic Culture - Final NO ANAEROBES WERE ISOLATED 03/15/16 13:03 Tissue-Other JER Preparation - Preliminary 03/15/16 13:03 Tissue-Other Fungal Culture - Preliminary 03/08/16 21:10 Urine - Urine Clean Catch Urine Culture - Final NO GROWTH OBTAINED 03/08/16 19:15 Nasopharyngeal Swab Influenza Types A,B Antigen (ZEESHAN) - Final 03/08/16 19:15 Nasopharyngeal Swab - Final Assessment: This is a 75 year old female with PMHx of HTN, [place] x2, hx of multiple falls (most recent on 03/05) who presented to the ED with decrease po intake, lethargy, dizziness and was admitted for further evaluation and management of her emergent condition. Plan: 1) MSK: S/p fall with head laceration - Unwitnessed fall yesterday - Head CT x2 with no acute intracranial hemorrhage - CT cervical spine with no fracture - Gina placed in back of head on 03/29 2) Cardiology: Moderate pericardial effusion s/p subxiphoid pericardial window 03/15 - Pericardial fungal culture pending - Pericardial bacterial culture negative - Pericardial fluid pathology negative for malignant cells - Appreciate CT surgery consult - Appreciate critical care consult Chest pain - Resolved - Appreciate cardiology consult Systolic heart failure - Echo reviewed moderate to severe lvef with inferior wall hypokinesis - Continue Metoprolol - Continue low dose lasix - Patient's BP not able to tolerate ACEi - Appreciate cardiology consult Paroxysmal A.fib - Rate controlled with Metoprolol - Systemic anticoagulation per cardiology 3) ID: Severe sepsis 2/2 pneumonia - Worsening leukocytosis - Continue Zosyn per ID - Remains afebrile - Appreciate ID consult 4) Oncology: RLE skin lesion - Imaging from [place] with lytic lesions throughout the calvarium and the cervical spine. 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 - Per multiple discussions with daughter, she has declined all malignancy workup for the patient stating she would like to get her back to [place] as soon as possible 5) F/E/N: - Pureed diet - Monitor electrolytes 6) Prophylaxis: - Heparin 5,000u sq tid 7) Dispo: - Requires ICU care CODE STATUS: FULL CODE Visit type - Emergency Visit Emergency Visit: Yes ED Registration Date: 03/09/16 Care time: The patient presented to the Emergency Department on the above date and was hospitalized for further evaluation of their emergent condition. - New Patient This patient is new to me today: No - Critical Care Critical Care patient: No
--- NOTE | 2016-03-30 16:30 | PN ---
Progress Note, Physician History of Present Illness: h/o of fall angelica back of head daughter in room patient calm - Current Medication List Current Medications: Active Medications Acetaminophen (Tylenol -) 650 mg PO Q6H PRN PRN Reason: FEVER OR PAIN Last Admin: 03/29/16 22:20 Dose: 650 mg Albuterol Sulfate (Ventolin 0.083% Nebulizer Soln -) 1 amp NEB BID [facility] Last Admin: 03/30/16 10:06 Dose: 1 amp Albuterol/Ipratropium (Duoneb -) 1 amp NEB Q6H PRN PRN Reason: PAIN Bacitracin (Bacitracin -) 1 applic TP DAILY [facility] Last Admin: 03/30/16 09:24 Dose: 1 applic Diphenhydramine HCl (Benadryl Injection -) 25 mg IVPUSH Q6H-IV [facility] Last Admin: 03/30/16 14:23 Dose: 25 mg Docusate Sodium (Colace -) 100 mg PO TID PRN PRN Reason: CONSTIPATION Furosemide (Lasix -) 20 mg PO DAILY [facility] Last Admin: 03/30/16 09:24 Dose: 20 mg Guaifenesin (Robitussin -) 10 ml PO HS [facility] Last Admin: 03/29/16 22:20 Dose: 10 ml Guaifenesin (Robitussin Dm -) 5 ml PO Q6H PRN PRN Reason: COUGH Metoprolol Tartrate (Lopressor -) 37.5 mg PO TID [facility] Last Admin: 03/30/16 13:43 Dose: 37.5 mg Metoprolol Tartrate (Lopressor Injection -) 5 mg IVPUSH Q4H PRN PRN Reason: TACHYCARDIA Morphine Sulfate (Morphine Injection -) 0.5 mg IVPUSH Q4H PRN PRN Reason: PAIN Last Admin: 03/30/16 13:42 Dose: 0.5 mg Nystatin/Triamcinolone Acetonide (Mycolog Ii Cream -) 1 applic TP BID [facility] Last Admin: 03/30/16 09:24 Dose: 1 applic Pantoprazole Sodium (Protonix -) 40 mg PO DAILY [facility] Last Admin: 03/30/16 09:24 Dose: 40 mg Zinc Acetate/Diphenhydramine (Benadryl 2% Cream) 1 applic TP BID [facility] Last Admin: 03/30/16 09:24 Dose: 1 applic - Objective Vital Signs: Vital Signs Temperature 98.6 F 03/30/16 14:05 Pulse Rate 75 03/30/16 14:05 Respiratory Rate 18 03/30/16 14:05 Blood Pressure 119/63 03/30/16 14:05 O2 Sat by Pulse Oximetry (%) 98 03/30/16 10:06 Constitutional: Yes: No Distress, Calm Cardiovascular: Yes: Regular Rate and Rhythm Respiratory: Yes: Regular Gastrointestinal: Yes: Normal Bowel Sounds, Soft Wound/Incision: Yes: Clean/Dry Neurological: Yes: Alert Labs: CBC, BMP 03/29/16 05:35 03/30/16 06:05 INR, PTT INR 1.43 (0.82-1.09) H 03/29/16 09:30 Assessment/Plan Problem List - Problems (1) Hypoxia Code(s): R09.02 - HYPOXEMIA (2) Lethargy Code(s): R53.83 - OTHER FATIGUE (3) Pericardial effusion Code(s): I31.3 - PERICARDIAL EFFUSION (NONINFLAMMATORY) (4) Proteinuria Code(s): R80.9 - PROTEINURIA, UNSPECIFIED (5) Hypertension Code(s): I10 - ESSENTIAL (PRIMARY) HYPERTENSION (6) Skin cancer Code(s): C44.90 - UNSPECIFIED MALIGNANT NEOPLASM OF SKIN, UNSPECIFIED abd pain cough plan wbc still hovering on the higher side will continue to monitor
[2016-03-30] MEDS ORDERED: PNEUMOC 13-VAL CONJ-DIP CRM/PF 0.5 ML DISP.SYRIN IM ONE (17:10)
[2016-03-30] MEDS ORDERED: INFLUENZA VACCINE 45 MCG/0.5 ML (MDV 16-17) IM ONE (18:00)
[2016-03-30] MEDS: guaiFENesin 200 MG/10 ML 10 ML UNIT-DOSE CUPS PO SCH (23:00)
[2016-03-30] MEDS: ACETAMINOPHEN 325 MG TABLET (FP) PO PRN (23:00)
[2016-03-31] MEDS: METOPROLOL TARTRATE 25 MG TABLET (FP) PO SCH ×3 (06:35→23:15)
[2016-03-31 07:34] LABS: MCH 30.6 pg (25.7-33.7); MCHC 32.3 g/dl (32.0-36.0); MEAN CELL VOLUME 94.9 fl (80-96); MEAN PLT VOLUME 9.9 fl (7.5-11.1); PLATELET COUNT 244 K/MM3 (134-434); RDW 18.1 % (11.6-15.6)
[2016-03-31 08:26] LABS: ALBUMIN 2.2 g/dl (3.4-5.0); ALK PHOS 89 U/L (45-117); ANION GAP 6 (8-16); BILIRUBIN,TOTAL 0.4 mg/dL (0.2-1.0); CALCIUM 8.4 mg/dL (8.5-10.1); CO2 31 mmol/L (21-32); CREATININE 0.5 mg/dL (0.55-1.02); GLUCOSE,RANDOM 110 mg/dL (74-106); SGOT/AST 13 U/L (15-37); SGPT/ALT 40 U/L (12-78); TOT PROT 6.2 g/dl (6.4-8.2)
[2016-03-31] MEDS: ALBUTEROL SO4 0.083% IH SOL 2.5 MG/3 ML VIAL.NEB. NEB SCH ×2 (09:15→23:30)
[2016-03-31] MEDS: FUROSEMIDE 20 MG TABLET (FP) PO SCH (10:01)
[2016-03-31] MEDS: PANTOPRAZOLE 40 MG TABLET (FP) PO SCH (10:01)
[2016-03-31] MEDS: BACITRACIN 30 GM TUBE TOPICAL OINTMENT TP SCH (10:02)
[2016-03-31] MEDS: NYSTATIN/TRIAMCINOLONE TOPICAL CREAM 15 GM TUBE TP SCH ×2 (10:02→23:16)
--- NOTE | 2016-03-31 10:02 | PN ---
Progress Note (short form) - Note Progress Note: s: confused at baseline (even with translation); appears comfortable, with daughter translation pt denies cp sob dizzy, feels general weakness o: Vital Signs Period Temp Pulse Resp BP Sys/Sanford Pulse Ox Last 24 Hr 97.3 F-99.1 F 75-88 18-20 98-124/36-65 97-98 Constitutional: Yes: No Distress, Calm Eyes: No: Sclera Icterus Cardiovascular: Yes: Regular Rate and Rhythm, no jvd, S1, S2,. No: Gallop, Murmur, Rub Respiratory: Yes: scattered rhonchi; No: Accessory Muscle Use, Rales, Wheezes Gastrointestinal: Yes: Normal Bowel Sounds, Soft. No: Tenderness Extremities: No: Cold Edema: No Integumentary: No: Jaundice diaphoresis Neurological: lethargic but arousable Psychiatric: No: Agitated Current Medications Generic Name Dose Route Start Last Admin Trade Name Freq PRN Reason Stop Dose Admin Acetaminophen 650 mg 03/27/16 18:12 03/30/16 23:00 Tylenol - PO 650 mg Q6H PRN Administration FEVER OR PAIN Albuterol Sulfate 1 amp 03/27/16 22:00 03/30/16 22:03 Ventolin 0.083% Nebulizer Soln - NEB 1 amp BID JUAN Administration Albuterol/Ipratropium 1 amp 03/27/16 18:12 Duoneb - NEB Q6H PRN PAIN Bacitracin 1 applic 03/28/16 10:00 03/30/16 09:24 Bacitracin - TP 1 applic DAILY JUAN Administration Diphenhydramine HCl 25 mg 03/27/16 21:00 03/31/16 06:34 Benadryl Injection - IVPUSH Not Given Q6H-IV JUAN Docusate Sodium 100 mg 03/27/16 18:12 Colace - PO TID PRN CONSTIPATION Furosemide 20 mg 03/29/16 14:00 03/30/16 09:24 Lasix - PO 20 mg DAILY JUAN Administration Guaifenesin 10 ml 03/27/16 22:00 03/30/16 23:00 Robitussin - PO 10 ml HS JUAN Administration Guaifenesin 5 ml 03/27/16 18:12 Robitussin Dm - PO Q6H PRN COUGH Metoprolol Tartrate 37.5 mg 03/27/16 22:00 03/31/16 06:35 Lopressor - PO 37.5 mg TID JUAN Administration Metoprolol Tartrate 5 mg 03/27/16 18:12 Lopressor Injection - IVPUSH Q4H PRN TACHYCARDIA Morphine Sulfate 0.5 mg 03/29/16 10:25 03/30/16 13:42 Morphine Injection - IVPUSH 0.5 mg Q4H PRN Administration PAIN Nystatin/Triamcinolone Acetonide 1 applic 03/27/16 22:00 03/30/16 23:00 Mycolog Ii Cream - TP 1 applic BID JUAN Administration Pantoprazole Sodium 40 mg 03/28/16 10:00 03/30/16 09:24 Protonix - PO 40 mg DAILY JUAN Administration Zinc Acetate/Diphenhydramine 1 applic 03/27/16 22:00 03/30/16 23:00 Benadryl 2% Cream TP 1 applic BID JUAN Administration CBC, BMP 03/31/16 05:00 03/31/16 05:00 Repeat chest/abd CT 03/24: Small subpleural infiltrates, rt basilar and lingular infiltrate. Small-mod pleural effusion. small-moderate pericardial effusion. No abdominal pathology. Echo 03/09/16 : mod-sev dec lvef, inf wall hk, nl rv, mild lae, mild mr/tr, moderate pericardial eff, ?impending tamponade based on ra wall collapse Repeat echo 03/12/16: mild con LVH. mod-sev depressed LV sys func (global), 1+ MR/TR, effusion unchanged, still with early diastolic RA collapse. repeat echo 03/21/16: sev dec lvef, nl rv, mild piotr, mild mr, mod-sev tr, rvsp 40-50, trivial pericardial eff, no signs tamponade tele: sr, occ pvc's a/p: 75 f (she is 83 according to family) with hx htn, h/o [place] x 2, dementia and possible recent diagnosis of cancer (unknown type), here with lethargy, weakness found to have systolic cardiomyopathy and pericardial effusion. pericardial effusion, possible acute pericarditis: -presented with moderate circumferential pericardial eff present but no signs of tamponade. clinically no signs of tamponade as well. -no obvious pericarditis, initially treated empirically with colchicine/ indomethacin but then renal fcn had worsened a little so they have been stopped -hemodynamically stable throughout, with no clinical tamponade -s/p pericardial window 03/16 (diagnostic as well) with 500 cc non-bloody fluid removed. pericardial fluid cultures, cytology pending. -repeat echo shows resolution of eff, but evidence of reaccumulation on 03/24 CT scan with symptoms of nausea. Would not diurese further. - 03/26: hemodynamically stable, bp improving. - 03/27: hemodynamically stable, bp normalized. Volume up today so will diurese. If bp drops, will plan on repeat echo to evaluate effusion. - 03/28-: ct chest reviewed by cts and she is not felt to have any significant re -accumulation of pericardial eff. bp stable. syst chf: -echo here shows mod-sev decreased lvef with inferior hypokinesis, patient with h/o prior CA--followed by doctors in [place] where she lives, per dtr (here visiting) -cont bb, bp too low for marian-i -no angina or other signs acs, ce's negx3, ecg w/o ischemic changes or significant q waves -03/12: clinically no definite chf, exam equiovocal for JVD--monitor closely with IVF. - 03/13: Now off IVF. CXR with new rt pleural effusion. No change in effusion size or hemodynamics with IVF. gentle diuresis as mentioned above. Strict I/O' s, daily weights. -03/14-: no signs chf on exam/cxr. cont to hold lasix and ivfs for now -will defer ? of need for ischemia eval to [place] doctors (dtr states pt plans to return as soon as medically stable)--? LV dysfxn is chronic and stable -low dose BB trial as doing. ACEI trial (2.5 mg) given 03/19 but dropped blood pressures. -03/20: Bp trending down s/p lasix and lisinopril yesterday evening. will hold dose this morning. Consider resuming again tomorrow if bp remains stable. WBC rising and cough worsening. Would repeat chest CT. -03/21: still with some chf on imaging and pericardial effusion improved (small on ct chest) so will give iv lasix dose today to help with congestion. -03/22: still with some chf on cxr so agree with 40 iv lasix dose today to help with congestion. -03/23-03/24: developing signs of infection (possible multifocal pna), poor po intake. Holding diuretics. Maintenance fluids today 03/24. Continue daily weights. -03/25-03/26: BP improved signifcantly on antibiotics. Con't to hold diuresis. - 03/27: Volume up today, will give trial dose of lasix 20 mg IV x 1. -03/28: cont prn lasix for now, avoid excess ivfs -03/29-: cont low dose maintenance lasix 20 po qd svt/PAT: -has had periodically during admit here. no obvious afib, cont to monitor on tele. -cont bb lethargy/weakness: -head ct w/o acute findings. likely 2/2 to aforementioned acute illnesses. -PT htn: - cont bb. elevated trop: -trop borderline elevated (peak 0.28) the day after episode of prolonged SVT/ fever. Nl ck, no ischemic changes on ecgs. likely due to demand ischemia from svt in setting of known CAD. Troponin trended down. No signs of acs presently malignancy: -imaging at OSH shows lytic lesions in spine, HCP declines eval, wants her to go back home to [place]
--- NOTE | 2016-03-31 14:37 | PN ---
Physical Exam: SUBJECTIVE: Patient seen and examined. OBJECTIVE: Vital Signs Period Temp Pulse Resp BP Sys/Sanford Pulse Ox Last 24 Hr 97.3 F-98.2 F 77-88 18-20 102-124/48-65 97-98 GENERAL: The patient is awake. Weak. Interacts with daughter. HEAD: Occipital laceration with surgical staple closure, edges well-approximated , no bleeding, no sign of infection EYES: PERRL, sclera anicteric, conjunctiva clear. No ptosis. LUNGS: Diffuse crackles HEART: Regular rate and rhythm, S1, S2 ABDOMEN: Diffuse abdominal tenderness EXTREMITIES: 2+ pulses, warm, well-perfused, no edema. 4cm tumorous growth RLE. NEUROLOGICAL: Cranial nerves II through XII grossly intact. Laboratory Results - last 24 hr 03/31/16 03/31/16 05:00 05:00 WBC 17.0 H RBC 3.41 L Hgb 10.5 L Hct 32.4 MCV 94.9 MCHC 32.3 RDW 18.1 H Plt Count 244 MPV 9.9 Sodium 136 Potassium 5.0 Chloride 99 Carbon Dioxide 31 Anion Gap 6 L BUN 14 Creatinine 0.5 L Creat Clearance w eGFR > 60 Random Glucose 110 H D Calcium 8.4 L Total Bilirubin 0.4 AST 13 L D ALT 40 D Alkaline Phosphatase 89 Total Protein 6.2 L Albumin 2.2 L Active Medications Generic Name Dose Route Start Last Admin Trade Name Freq PRN Reason Stop Dose Admin Acetaminophen 650 mg 03/27/16 18:12 03/30/16 23:00 Tylenol - PO 650 mg Q6H PRN Administration FEVER OR PAIN Albuterol Sulfate 1 amp 03/27/16 22:00 03/31/16 09:15 Ventolin 0.083% Nebulizer Soln - NEB 1 amp BID JUAN Administration Albuterol/Ipratropium 1 amp 03/27/16 18:12 Duoneb - NEB Q6H PRN PAIN Bacitracin 1 applic 03/28/16 10:00 03/31/16 10:02 Bacitracin - TP 1 applic DAILY JUAN Administration Diphenhydramine HCl 25 mg 03/27/16 21:00 03/31/16 10:02 Benadryl Injection - IVPUSH Not Given Q6H-IV JUAN Docusate Sodium 100 mg 03/27/16 18:12 Colace - PO TID PRN CONSTIPATION Furosemide 20 mg 03/29/16 14:00 03/31/16 10:01 Lasix - PO 20 mg DAILY JUAN Administration Guaifenesin 10 ml 03/27/16 22:00 03/30/16 23:00 Robitussin - PO 10 ml HS JUAN Administration Guaifenesin 5 ml 03/27/16 18:12 Robitussin Dm - PO Q6H PRN COUGH Metoprolol Tartrate 37.5 mg 03/27/16 22:00 03/31/16 06:35 Lopressor - PO 37.5 mg TID JUAN Administration Metoprolol Tartrate 5 mg 03/27/16 18:12 Lopressor Injection - IVPUSH Q4H PRN TACHYCARDIA Morphine Sulfate 0.5 mg 03/29/16 10:25 03/30/16 13:42 Morphine Injection - IVPUSH 0.5 mg Q4H PRN Administration PAIN Nystatin/Triamcinolone Acetonide 1 applic 03/27/16 22:00 03/31/16 10:02 Mycolog Ii Cream - TP 1 applic BID JUAN Administration Pantoprazole Sodium 40 mg 03/28/16 10:00 03/31/16 10:01 Protonix - PO 40 mg DAILY JUAN Administration Zinc Acetate/Diphenhydramine 1 applic 03/27/16 22:00 03/31/16 10:02 Benadryl 2% Cream TP 1 applic BID JUAN Administration ASSESSMENT/PLAN: This is hospital day #22 for this 75 year-old female with PMH of HTN, [place] x2, pericardial effusion s/p pericardial window on 03/15. Prolonged hopsital course. Moderate pericardial effusion Severe systolic heart failure --03/09/16 Echo: LV function moderately to severely reduced, inferior wall severely hypokinetic; RV grossly normal; LAE; mild MR, mild TR, trace to mild PI ; moderate pericardial effusion with diastolic inversion of the right atrial free wall --s/p pericardial window 03/15; fungal culture pending --cytology negative for malignant cells --03/24 CT chest showed moderate pericardial effusion; reviewed by Dr. Rasheed, no recurrence of significant effusion, first one was clinically insignificant as well; no indication for repeat echo --continue low dose Lasix daily SVT.PAT --intermittent episodes, no obvious afib Severe sepsis Multilobar pneumonia --WBC 16.2k --hemodynamically stable --completed Zosyn x 7 days --cultures negative to date --observe off antibiotics --ID following Lactic acidosis, resolved Abdominal pain of uncertain etiology --has cholilithiasis but no signs of cholecystitis --KUB on 03/28 showed possible ileus but patient having daily BMs --will get repeat CTAP --NPO for now Elevated troponins --flat trending --likely secondary to infectious process/demand ischemia Soft tissue facial injuries s/p mechanical fall, resolved Occipital laceration --surgical angelica in situ; no sign of infection r/o malignancy --imaging from [facility] showed lytic lesions throughout the calvarium and the cervical spine; also with tumorous growth on RLE --no further workup per HCP Abdominal rash, resolved --improved --likely reaction to Ensure that contains milk products; d/c'd F/E/N Fluids: PO intake adequate Electrolyes: replete as indicated Nutrition: low sodium DVT prophylaxis: lovenox Dispo: DNR/DNI. Visit type - Emergency Visit Emergency Visit: Yes ED Registration Date: 03/09/16 Care time: The patient presented to the Emergency Department on the above date and was hospitalized for further evaluation of their emergent condition. - New Patient This patient is new to me today: No - Critical Care Critical Care patient: No
--- NOTE | 2016-03-31 15:10 | PN ---
Progress Note, Physician History of Present Illness: clinically stable still has abd pain - Current Medication List Current Medications: Active Medications Acetaminophen (Tylenol -) 650 mg PO Q6H PRN PRN Reason: FEVER OR PAIN Last Admin: 03/30/16 23:00 Dose: 650 mg Albuterol Sulfate (Ventolin 0.083% Nebulizer Soln -) 1 amp NEB BID [facility] Last Admin: 03/31/16 09:15 Dose: 1 amp Albuterol/Ipratropium (Duoneb -) 1 amp NEB Q6H PRN PRN Reason: PAIN Bacitracin (Bacitracin -) 1 applic TP DAILY [facility] Last Admin: 03/31/16 10:02 Dose: 1 applic Diphenhydramine HCl (Benadryl Injection -) 25 mg IVPUSH Q6H-IV [facility] Last Admin: 03/31/16 10:02 Dose: Not Given Docusate Sodium (Colace -) 100 mg PO TID PRN PRN Reason: CONSTIPATION Furosemide (Lasix -) 20 mg PO DAILY [facility] Last Admin: 03/31/16 10:01 Dose: 20 mg Guaifenesin (Robitussin -) 10 ml PO HS [facility] Last Admin: 03/30/16 23:00 Dose: 10 ml Guaifenesin (Robitussin Dm -) 5 ml PO Q6H PRN PRN Reason: COUGH Metoprolol Tartrate (Lopressor -) 37.5 mg PO TID [facility] Last Admin: 03/31/16 06:35 Dose: 37.5 mg Metoprolol Tartrate (Lopressor Injection -) 5 mg IVPUSH Q4H PRN PRN Reason: TACHYCARDIA Morphine Sulfate (Morphine Injection -) 0.5 mg IVPUSH Q4H PRN PRN Reason: PAIN Last Admin: 03/30/16 13:42 Dose: 0.5 mg Nystatin/Triamcinolone Acetonide (Mycolog Ii Cream -) 1 applic TP BID [facility] Last Admin: 03/31/16 10:02 Dose: 1 applic Pantoprazole Sodium (Protonix -) 40 mg PO DAILY [facility] Last Admin: 03/31/16 10:01 Dose: 40 mg Zinc Acetate/Diphenhydramine (Benadryl 2% Cream) 1 applic TP BID [facility] Last Admin: 03/31/16 10:02 Dose: 1 applic - Objective Vital Signs: Vital Signs Temperature 98 F 01/07/17 14:53 Pulse Rate 72 03/31/16 14:53 Respiratory Rate 20 03/31/16 14:53 Blood Pressure 106/53 03/31/16 14:53 O2 Sat by Pulse Oximetry (%) 98 03/31/16 11:12 Constitutional: Yes: Calm, Mild Distress Cardiovascular: Yes: Regular Rate and Rhythm Respiratory: Yes: Regular, Poor Air Entry Gastrointestinal: Yes: Soft, Tenderness Musculoskeletal: Yes: WNL Extremities: Yes: WNL Neurological: Yes: Alert Psychiatric: Yes: Alert Labs: CBC, BMP 03/31/16 05:00 03/31/16 05:00 INR, PTT INR 1.43 (0.82-1.09) H 03/29/16 09:30 Assessment/Plan Problem List - Problems (1) Hypoxia Code(s): R09.02 - HYPOXEMIA (2) Lethargy Code(s): R53.83 - OTHER FATIGUE (3) Pericardial effusion Code(s): I31.3 - PERICARDIAL EFFUSION (NONINFLAMMATORY) (4) Proteinuria Code(s): R80.9 - PROTEINURIA, UNSPECIFIED (5) Hypertension Code(s): I10 - ESSENTIAL (PRIMARY) HYPERTENSION (6) Skin cancer Code(s): C44.90 - UNSPECIFIED MALIGNANT NEOPLASM OF SKIN, UNSPECIFIED abd pain cough plan wbc has increased check wbc again abd xray amylase lipase
[2016-03-31 16:29] LABS: MCH 29.7 pg (25.7-33.7); MCHC 31.3 g/dl (32.0-36.0); MEAN CELL VOLUME 94.9 fl (80-96); MEAN PLT VOLUME 10.1 fl (7.5-11.1); PLATELET COUNT 276 K/MM3 (134-434); RDW 18.3 % (11.6-15.6); WHITE BLOOD COUNT 16.2 K/mm3 (4.0-10.0)
[2016-03-31 17:07] LABS: PLATELET ESTIMATE ADEQUATE (NORMAL)
[2016-03-31] MEDS: guaiFENesin 200 MG/10 ML 10 ML UNIT-DOSE CUPS PO SCH (23:16)
[2016-04-01] MEDS: METOPROLOL TARTRATE 25 MG TABLET (FP) PO SCH ×3 (07:05→22:19)
[2016-04-01] MEDS: ALBUTEROL SO4 0.083% IH SOL 2.5 MG/3 ML VIAL.NEB. NEB SCH ×2 (09:10→22:00)
[2016-04-01 09:45] LABS: BASOPHIL 0.6 % (0-2.0); EOSINOPHIL 1.2 % (0-4.5); MCH 30.2 pg (25.7-33.7); MCHC 32.1 g/dl (32.0-36.0); MEAN CELL VOLUME 94.2 fl (80-96); MEAN PLT VOLUME 9.7 fl (7.5-11.1); NEUTROPHILS 83.9 % (42.8-82.8); PLATELET COUNT 264 K/MM3 (134-434); RDW 18.1 % (11.6-15.6); WHITE BLOOD COUNT 14.9 K/mm3 (4.0-10.0)
--- NOTE | 2016-04-01 09:54 | PN ---
Progress Note (short form) - Note Progress Note: s: confused at baseline (even with translation); appears comfortable, with daughter translation pt denies cp sob dizzy, feels general weakness o: Vital Signs Period Temp Pulse Resp BP Sys/Sanford Pulse Ox Last 24 Hr 97.7 F-98.2 F 72-122 18-20 106-136/45-74 98-98 Constitutional: Yes: No Distress, Calm Eyes: No: Sclera Icterus Cardiovascular: Yes: Regular Rate and Rhythm, no jvd, S1, S2,. No: Gallop, Murmur, Rub Respiratory: Yes: scattered rhonchi; No: Accessory Muscle Use, Rales, Wheezes Gastrointestinal: Yes: Normal Bowel Sounds, Soft. No: Tenderness Extremities: No: Cold Edema: No Integumentary: No: Jaundice diaphoresis Neurological: lethargic but arousable Psychiatric: No: Agitated Current Medications Generic Name Dose Route Start Last Admin Trade Name Freq PRN Reason Stop Dose Admin Acetaminophen 650 mg 03/27/16 18:12 03/30/16 23:00 Tylenol - PO 650 mg Q6H PRN Administration FEVER OR PAIN Albuterol Sulfate 1 amp 03/27/16 22:00 03/31/16 23:30 Ventolin 0.083% Nebulizer Soln - NEB 1 amp BID JUAN Administration Albuterol/Ipratropium 1 amp 03/27/16 18:12 Duoneb - NEB Q6H PRN PAIN Bacitracin 1 applic 03/28/16 10:00 03/31/16 10:02 Bacitracin - TP 1 applic DAILY JUAN Administration Diphenhydramine HCl 25 mg 03/27/16 21:00 04/01/16 07:03 Benadryl Injection - IVPUSH Not Given Q6H-IV JUAN Docusate Sodium 100 mg 03/27/16 18:12 04/01/16 07:05 Colace - PO 100 mg TID PRN Administration CONSTIPATION Furosemide 20 mg 03/29/16 14:00 03/31/16 10:01 Lasix - PO 20 mg DAILY JUAN Administration Guaifenesin 10 ml 03/27/16 22:00 03/31/16 23:16 Robitussin - PO 10 ml HS JUAN Administration Guaifenesin 5 ml 03/27/16 18:12 Robitussin Dm - PO Q6H PRN COUGH Metoprolol Tartrate 37.5 mg 03/27/16 22:00 04/01/16 07:05 Lopressor - PO 37.5 mg TID JUAN Administration Metoprolol Tartrate 5 mg 03/27/16 18:12 Lopressor Injection - IVPUSH Q4H PRN TACHYCARDIA Morphine Sulfate 0.5 mg 03/29/16 10:25 03/30/16 13:42 Morphine Injection - IVPUSH 0.5 mg Q4H PRN Administration PAIN Nystatin/Triamcinolone Acetonide 1 applic 03/27/16 22:00 03/31/16 23:16 Mycolog Ii Cream - TP 1 applic BID JUAN Administration Pantoprazole Sodium 40 mg 03/28/16 10:00 03/31/16 10:01 Protonix - PO 40 mg DAILY JUAN Administration Zinc Acetate/Diphenhydramine 1 applic 03/27/16 22:00 03/31/16 23:16 Benadryl 2% Cream TP 1 applic BID JUAN Administration CBC, BMP 04/01/16 09:32 Repeat chest/abd CT 03/24: Small subpleural infiltrates, rt basilar and lingular infiltrate. Small-mod pleural effusion. small-moderate pericardial effusion. No abdominal pathology. Echo 03/09/16 : mod-sev dec lvef, inf wall hk, nl rv, mild lae, mild mr/tr, moderate pericardial eff, ?impending tamponade based on ra wall collapse Repeat echo 03/12/16: mild con LVH. mod-sev depressed LV sys func (global), 1+ MR/TR, effusion unchanged, still with early diastolic RA collapse. repeat echo 03/21/16: sev dec lvef, nl rv, mild piotr, mild mr, mod-sev tr, rvsp 40-50, trivial pericardial eff, no signs tamponade tele: sr, occ pvc's a/p: 75 f (she is 83 according to family) with hx htn, h/o [place] x 2, dementia and possible recent diagnosis of cancer (unknown type), here with lethargy, weakness found to have systolic cardiomyopathy and pericardial effusion. pericardial effusion, possible acute pericarditis: -presented with moderate circumferential pericardial eff present but no signs of tamponade. clinically no signs of tamponade as well. -no obvious pericarditis, initially treated empirically with colchicine/ indomethacin but then renal fcn had worsened a little so they have been stopped -hemodynamically stable throughout, with no clinical tamponade -s/p pericardial window 03/16 (diagnostic as well) with 500 cc non-bloody fluid removed. pericardial fluid cultures, cytology pending. -repeat echo shows resolution of eff, but evidence of reaccumulation on 03/24 CT scan with symptoms of nausea. Would not diurese further. - 03/26: hemodynamically stable, bp improving. - 03/27: hemodynamically stable, bp normalized. Volume up today so will diurese. If bp drops, will plan on repeat echo to evaluate effusion. - 03/28-: ct chest was reviewed by cts and she is not felt to have any significant re-accumulation of pericardial eff. bp has been stable. syst chf: -echo here shows mod-sev decreased lvef with inferior hypokinesis, patient with h/o prior [place]--followed by doctors in [place] where she lives, per dtr (here visiting) -cont bb, bp too low for marian-i -no angina or other signs acs, ce's negx3, ecg w/o ischemic changes or significant q waves -03/12: clinically no definite chf, exam equiovocal for JVD--monitor closely with IVF. - 03/13: Now off IVF. CXR with new rt pleural effusion. No change in effusion size or hemodynamics with IVF. gentle diuresis as mentioned above. Strict I/O' s, daily weights. -03/14-: no signs chf on exam/cxr. cont to hold lasix and ivfs for now -will defer ? of need for ischemia eval to [place] doctors (dtr states pt plans to return as soon as medically stable)--? LV dysfxn is chronic and stable -low dose BB trial as doing. ACEI trial (2.5 mg) given 03/19 but dropped blood pressures. -03/20: Bp trending down s/p lasix and lisinopril yesterday evening. will hold dose this morning. Consider resuming again tomorrow if bp remains stable. WBC rising and cough worsening. Would repeat chest CT. -03/21: still with some chf on imaging and pericardial effusion improved (small on ct chest) so will give iv lasix dose today to help with congestion. -03/22: still with some chf on cxr so agree with 40 iv lasix dose today to help with congestion. -03/23-03/24: developing signs of infection (possible multifocal pna), poor po intake. Holding diuretics. Maintenance fluids today 03/24. Continue daily weights. -03/25-03/26: BP improved signifcantly on antibiotics. Con't to hold diuresis. - 03/27: Volume up today, will give trial dose of lasix 20 mg IV x 1. -03/28: cont prn lasix for now, avoid excess ivfs -03/29-: cont low dose maintenance lasix 20 po qd svt/PAT: -has had periodically during admit here. no obvious afib, cont to monitor on tele. -cont bb lethargy/weakness: -head ct w/o acute findings. likely 2/2 to aforementioned acute illnesses. -PT htn: - cont bb. elevated trop: -trop borderline elevated (peak 0.28) the day after episode of prolonged SVT/ fever. Nl ck, no ischemic changes on ecgs. likely due to demand ischemia from svt in setting of known CAD. Troponin trended down. No signs of acs presently malignancy: -imaging at OSH shows lytic lesions in spine, HCP declines eval, wants her to go back home to [place]
[2016-04-01] MEDS: NYSTATIN/TRIAMCINOLONE TOPICAL CREAM 15 GM TUBE TP SCH ×2 (10:01→22:20)
[2016-04-01] MEDS: BACITRACIN 30 GM TUBE TOPICAL OINTMENT TP SCH (10:02)
[2016-04-01 10:09] LABS: ALBUMIN 2.2 g/dl (3.4-5.0); ANION GAP 6 (8-16); CALCIUM 8.4 mg/dL (8.5-10.1); CO2 31 mmol/L (21-32); CREATININE 0.5 mg/dL (0.55-1.02); GLUCOSE,RANDOM 141 mg/dL (74-106); MAGNESIUM 2.1 mg/dL (1.8-2.4); SGOT/AST 18 U/L (15-37); SGPT/ALT 35 U/L (12-78)
[2016-04-01 10:10] LABS: ALK PHOS 99 U/L (45-117); BILIRUBIN,TOTAL 0.4 mg/dL (0.2-1.0); TOT PROT 6.1 g/dl (6.4-8.2)
[2016-04-01] MEDS: FUROSEMIDE 20 MG TABLET (FP) PO SCH (10:32)
[2016-04-01] MEDS: PANTOPRAZOLE 40 MG TABLET (FP) PO SCH (10:32)
--- NOTE | 2016-04-01 12:00 | PN ---
Physical Exam: SUBJECTIVE: Patient seen and examined OBJECTIVE: Vital Signs Period Temp Pulse Resp BP Sys/Sanford Pulse Ox Last 24 Hr 97.7 F-98.2 F 72-122 18-20 106-136/45-71 98 GENERAL: The patient is awake. More alert than yesterday but still extremely weak. HEAD: Occipital laceration with surgical staple closure, edges well-approximated , no bleeding, no sign of infection EYES: PERRL, sclera anicteric, conjunctiva clear. No ptosis. LUNGS: Diffuse crackles HEART: Regular rate and rhythm, S1, S2 ABDOMEN: Diffuse abdominal tenderness EXTREMITIES: 2+ pulses, warm, well-perfused, no edema. 4cm tumorous growth RLE. NEUROLOGICAL: Cranial nerves II through XII grossly intact. Laboratory Results - last 24 hr 03/31/16 03/31/16 04/01/16 16:05 16:05 09:32 WBC 16.2 H 14.9 H RBC 3.50 L 3.48 L Hgb 10.4 L 10.5 L Hct 33.2 32.7 MCV 94.9 94.2 MCHC 31.3 L 32.1 RDW 18.3 H 18.1 H Plt Count 276 264 MPV 10.1 9.7 Neutrophils % 80.0 83.9 H Lymphocytes % 8.0 D 4.8 L D Monocytes % 9.0 9.5 Eosinophils % 1.2 Basophils % 0.6 Band Neutrophils 2.0 D Differential Comment Manual diff done Reactive Lymphocytes 1 Platelet Estimate Adequate Morphology Comment Slide scanned Sodium Potassium Chloride Carbon Dioxide Anion Gap BUN Creatinine Creat Clearance w eGFR Random Glucose Calcium Magnesium Total Bilirubin AST ALT Alkaline Phosphatase Total Protein Albumin Lipase 119 04/01/16 09:32 WBC RBC Hgb Hct MCV MCHC RDW Plt Count MPV Neutrophils % Lymphocytes % Monocytes % Eosinophils % Basophils % Band Neutrophils Differential Comment Reactive Lymphocytes Platelet Estimate Morphology Comment Sodium 134 L Potassium 5.2 H Chloride 97 L Carbon Dioxide 31 Anion Gap 6 L BUN 11 D Creatinine 0.5 L Creat Clearance w eGFR > 60 Random Glucose 141 H D Calcium 8.4 L Magnesium 2.1 Total Bilirubin 0.4 AST 18 D ALT 35 Alkaline Phosphatase 99 Total Protein 6.1 L Albumin 2.2 L Lipase Active Medications Generic Name Dose Route Start Last Admin Trade Name Freq PRN Reason Stop Dose Admin Acetaminophen 650 mg 03/27/16 18:12 03/30/16 23:00 Tylenol - PO 650 mg Q6H PRN Administration FEVER OR PAIN Albuterol Sulfate 1 amp 03/27/16 22:00 03/31/16 23:30 Ventolin 0.083% Nebulizer Soln - NEB 1 amp BID JUAN Administration Albuterol/Ipratropium 1 amp 03/27/16 18:12 Duoneb - NEB Q6H PRN PAIN Bacitracin 1 applic 03/28/16 10:00 03/31/16 10:02 Bacitracin - TP 1 applic DAILY JUAN Administration Diphenhydramine HCl 25 mg 03/27/16 21:00 04/01/16 09:33 Benadryl Injection - IVPUSH 25 mg Q6H-IV JUAN Administration Docusate Sodium 100 mg 03/27/16 18:12 04/01/16 07:05 Colace - PO 100 mg TID PRN Administration CONSTIPATION Furosemide 20 mg 03/29/16 14:00 04/01/16 10:32 Lasix - PO 20 mg DAILY JUAN Administration Guaifenesin 10 ml 03/27/16 22:00 03/31/16 23:16 Robitussin - PO 10 ml HS JUAN Administration Guaifenesin 5 ml 03/27/16 18:12 Robitussin Dm - PO Q6H PRN COUGH Metoprolol Tartrate 37.5 mg 03/27/16 22:00 04/01/16 07:05 Lopressor - PO 37.5 mg TID JUAN Administration Metoprolol Tartrate 5 mg 03/27/16 18:12 Lopressor Injection - IVPUSH Q4H PRN TACHYCARDIA Nystatin/Triamcinolone Acetonide 1 applic 03/27/16 22:00 03/31/16 23:16 Mycolog Ii Cream - TP 1 applic BID JUAN Administration Pantoprazole Sodium 40 mg 03/28/16 10:00 04/01/16 10:32 Protonix - PO 40 mg DAILY JUAN Administration Zinc Acetate/Diphenhydramine 1 applic 03/27/16 22:00 03/31/16 23:16 Benadryl 2% Cream TP 1 applic BID JUAN Administration ASSESSMENT/PLAN This is hospital day #23 for this 75 year-old female with PMH of HTN, [place] x2, pericardial effusion s/p pericardial window on 03/15. Prolonged hopsital course. Moderate pericardial effusion Severe systolic heart failure --03/09/16 Echo: LV function moderately to severely reduced, inferior wall severely hypokinetic; RV grossly normal; LAE; mild MR, mild TR, trace to mild PI ; moderate pericardial effusion with diastolic inversion of the right atrial free wall --s/p pericardial window 03/15; fungal culture pending --cytology negative for malignant cells --03/24 CT chest showed moderate pericardial effusion; reviewed by Dr. Rasheed, no recurrence of significant effusion, first one was clinically insignificant as well; no indication for repeat echo --continue low dose Lasix daily SVT.PAT --intermittent episodes, no obvious afib Severe sepsis Multilobar pneumonia --WBC trending down, afebrile --hemodynamically stable --completed Zosyn x 7 days --cultures negative to date --continue to observe off antibiotics --ID following Lactic acidosis, resolved Abdominal pain of uncertain etiology --03/31 CTAP: no significant change --no sign of cholecystitis --moderate about of retained stool, no ileus Elevated troponins --flat trending --likely secondary to infectious process/demand ischemia Soft tissue facial injuries s/p mechanical fall, resolved Occipital laceration --surgical angelica in situ; no sign of infection r/o malignancy --imaging from [facility] showed lytic lesions throughout the calvarium and the cervical spine; also with tumorous growth on RLE --no further workup per HCP Abdominal rash, resolved F/E/N Fluids: PO intake adequate Electrolyes: replete as indicated Nutrition: low sodium DVT prophylaxis: lovenox Dispo: Discussed discharge planning with daughter. Patient took out travel health insurance, copy of insurance card placed in chart. PT evaluation on Saturday. DNR/DNI. Visit type - Emergency Visit Emergency Visit: Yes ED Registration Date: 03/09/16 Care time: The patient presented to the Emergency Department on the above date and was hospitalized for further evaluation of their emergent condition. - New Patient This patient is new to me today: No - Critical Care Critical Care patient: No
--- NOTE | 2016-04-01 20:56 | PN ---
Progress Note, Physician - Current Medication List Current Medications: Active Medications Acetaminophen (Tylenol -) 650 mg PO Q6H PRN PRN Reason: FEVER OR PAIN Last Admin: 03/30/16 23:00 Dose: 650 mg Albuterol Sulfate (Ventolin 0.083% Nebulizer Soln -) 1 amp NEB BID [facility] Last Admin: 04/01/16 09:10 Dose: 1 amp Albuterol/Ipratropium (Duoneb -) 1 amp NEB Q6H PRN PRN Reason: PAIN Bacitracin (Bacitracin -) 1 applic TP DAILY [facility] Last Admin: 04/01/16 10:02 Dose: 1 applic Docusate Sodium (Colace -) 100 mg PO TID PRN PRN Reason: CONSTIPATION Last Admin: 04/01/16 07:05 Dose: 100 mg Furosemide (Lasix -) 20 mg PO DAILY [facility] Last Admin: 04/01/16 10:32 Dose: 20 mg Guaifenesin (Robitussin Dm -) 5 ml PO Q6H PRN PRN Reason: COUGH Metoprolol Tartrate (Lopressor -) 37.5 mg PO TID [facility] Last Admin: 04/01/16 14:02 Dose: 37.5 mg Metoprolol Tartrate (Lopressor Injection -) 5 mg IVPUSH Q4H PRN PRN Reason: TACHYCARDIA Nystatin/Triamcinolone Acetonide (Mycolog Ii Cream -) 1 applic TP BID [facility] Last Admin: 04/01/16 10:01 Dose: 1 applic Pantoprazole Sodium (Protonix -) 40 mg PO DAILY [facility] Last Admin: 04/01/16 10:32 Dose: 40 mg Zinc Acetate/Diphenhydramine (Benadryl 2% Cream) 1 applic TP BID [facility] Last Admin: 04/01/16 10:02 Dose: 1 applic - Objective Vital Signs: Vital Signs Temperature 98.0 F 04/01/16 17:00 Pulse Rate 84 04/01/16 17:00 Respiratory Rate 18 04/01/16 17:00 Blood Pressure 107/43 04/01/16 17:00 O2 Sat by Pulse Oximetry (%) 98 04/01/16 09:15 Labs: CBC, BMP 04/01/16 09:32 04/01/16 09:32 INR, PTT INR 1.43 (0.82-1.09) H 03/29/16 09:30 Assessment/Plan Repeat chest/abd CT 03/24: Small subpleural infiltrates, rt basilar and lingular infiltrate. Small-mod pleural effusion. small-moderate pericardial effusion. No abdominal pathology. Echo 03/09/16 : mod-sev dec lvef, inf wall hk, nl rv, mild lae, mild mr/tr, moderate pericardial eff, ?impending tamponade based on ra wall collapse Echo 03/12/16: mild con LVH. mod-sev depressed LV sys func (global), 1+ MR/TR, effusion unchanged, still with early diastolic RA collapse. Echo 03/21/16: sev dec lvef, nl rv, mild piotr, mild mr, mod-sev tr, rvsp 40-50, trivial pericardial eff, no signs tamponade tele: sr, occ pvc's a/p: 75 f (she is 83 according to family) with hx htn, h/o [place] x 2, dementia and possible recent diagnosis of cancer (unknown type), here with lethargy, weakness found to have systolic cardiomyopathy and pericardial effusion. pericardial effusion, possible acute pericarditis: -presented with moderate circumferential pericardial eff present but no signs of tamponade. clinically no signs of tamponade as well. -no obvious pericarditis, initially treated empirically with colchicine/ indomethacin but then renal fcn had worsened a little so they have been stopped -hemodynamically stable throughout, with no clinical tamponade -s/p pericardial window 03/16 (diagnostic as well) with 500 cc non-bloody fluid removed. pericardial fluid cultures, cytology pending. -repeat echo shows resolution of eff, but evidence of reaccumulation on 03/24 CT scan with symptoms of nausea. Would not diurese further. - 1/2: hemodynamically stable, bp improving. - 3: hemodynamically stable, bp normalized. Volume up today so will diurese. If bp drops, will plan on repeat echo to evaluate effusion. - 03/28-8: ct chest was reviewed by cts and she is not felt to have any significant re-accumulation of pericardial eff. bp has been stable. syst chf: -echo here shows mod-sev decreased lvef with inferior hypokinesis, patient with h/o prior [place]--followed by doctors in [place] where she lives, per dtr (here visiting) -cont bb, bp too low for marian-i -no angina or other signs acs, ce's negx3, ecg w/o ischemic changes or significant q waves -03/12: clinically no definite chf, exam equiovocal for JVD--monitor closely with IVF. - 03/13: Now off IVF. CXR with new rt pleural effusion. No change in effusion size or hemodynamics with IVF. gentle diuresis as mentioned above. Strict I/O' s, daily weights. -03/14-: no signs chf on exam/cxr. cont to hold lasix and ivfs for now -will defer ? of need for ischemia eval to [place] doctors (dtr states pt plans to return as soon as medically stable)--? LV dysfxn is chronic and stable -low dose BB trial as doing. ACEI trial (2.5 mg) given 03/19 but dropped blood pressures. -03/20: Bp trending down s/p lasix and lisinopril yesterday evening. will hold dose this morning. Consider resuming again tomorrow if bp remains stable. WBC rising and cough worsening. Would repeat chest CT. -03/21: still with some chf on imaging and pericardial effusion improved (small on ct chest) so will give iv lasix dose today to help with congestion. -03/22: still with some chf on cxr so agree with 40 iv lasix dose today to help with congestion. -03/23-03/24: developing signs of infection (possible multifocal pna), poor po intake. Holding diuretics. Maintenance fluids today 03/24. Continue daily weights. -03/25-03/26: BP improved signifcantly on antibiotics. Con't to hold diuresis. - 03/27: Volume up today, will give trial dose of lasix 20 mg IV x 1. -03/28: cont prn lasix for now, avoid excess ivfs -03/29-: cont low dose maintenance lasix 20 po qd svt/PAT: -has had periodically during admit here. no obvious afib, cont to monitor on tele. -cont bb leukocytosis: -unclear etiology, being followed by ID lethargy/weakness: -head ct w/o acute findings. likely 2/2 to aforementioned acute illnesses. -PT htn: - cont bb. elevated trop: -trop borderline elevated (peak 0.28) the day after episode of prolonged SVT/ fever. Nl ck, no ischemic changes on ecgs. likely due to demand ischemia from svt in setting of known CAD. Troponin trended down. No signs of acs presently malignancy: -imaging at OSH shows lytic lesions in spine, HCP declines eval, wants her to go back home to [place]
[2016-04-02] MEDS: METOPROLOL TARTRATE 25 MG TABLET (FP) PO SCH ×3 (06:32→21:48)
[2016-04-02] MEDS: PANTOPRAZOLE 40 MG TABLET (FP) PO SCH (09:35)
[2016-04-02] MEDS: FUROSEMIDE 20 MG TABLET (FP) PO SCH (09:35)
[2016-04-02] MEDS: BACITRACIN 30 GM TUBE TOPICAL OINTMENT TP SCH (09:36)
[2016-04-02] MEDS: NYSTATIN/TRIAMCINOLONE TOPICAL CREAM 15 GM TUBE TP SCH ×2 (09:36→21:49)
[2016-04-02] MEDS: ALBUTEROL SO4 0.083% IH SOL 2.5 MG/3 ML VIAL.NEB. NEB SCH ×2 (10:35→23:50)
--- NOTE | 2016-04-02 10:36 | PN ---
Physical Exam: SUBJECTIVE: Patient seen and examined OBJECTIVE: Vital Signs Period Temp Pulse Resp BP Sys/Sanford Pulse Ox Last 24 Hr 97.3 F-98.0 F 77-95 18-20 107-133/43-70 93-98 GENERAL: The patient is awake. More alert than yesterday but still extremely weak. HEAD: Occipital laceration with surgical staple closure, edges well-approximated , no bleeding, no sign of infection EYES: PERRL, sclera anicteric, conjunctiva clear. No ptosis. LUNGS: Diffuse crackles, inspiratory wheezing anterior upper lobes HEART: Regular rate and rhythm, S1, S2 ABDOMEN: Diffuse abdominal tenderness EXTREMITIES: 2+ pulses, warm, well-perfused, no edema. 4cm tumorous growth RLE. NEUROLOGICAL: Cranial nerves II through XII grossly intact. Active Medications Generic Name Dose Route Start Last Admin Trade Name Freq PRN Reason Stop Dose Admin Acetaminophen 650 mg 03/27/16 18:12 03/30/16 23:00 Tylenol - PO 650 mg Q6H PRN Administration FEVER OR PAIN Albuterol Sulfate 1 amp 03/27/16 22:00 04/01/16 22:00 Ventolin 0.083% Nebulizer Soln - NEB 1 amp BID JUAN Administration Albuterol/Ipratropium 1 amp 03/27/16 18:12 Duoneb - NEB Q6H PRN PAIN Bacitracin 1 applic 03/28/16 10:00 04/02/16 09:36 Bacitracin - TP 1 applic DAILY JUAN Administration Docusate Sodium 100 mg 03/27/16 18:12 04/01/16 07:05 Colace - PO 100 mg TID PRN Administration CONSTIPATION Furosemide 20 mg 03/29/16 14:00 04/02/16 09:35 Lasix - PO 20 mg DAILY JUAN Administration Guaifenesin 5 ml 03/27/16 18:12 Robitussin Dm - PO Q6H PRN COUGH Metoprolol Tartrate 37.5 mg 03/27/16 22:00 04/02/16 06:32 Lopressor - PO 37.5 mg TID JUAN Administration Metoprolol Tartrate 5 mg 03/27/16 18:12 Lopressor Injection - IVPUSH Q4H PRN TACHYCARDIA Nystatin/Triamcinolone Acetonide 1 applic 03/27/16 22:00 04/02/16 09:36 Mycolog Ii Cream - TP 1 applic BID JUAN Administration Pantoprazole Sodium 40 mg 03/28/16 10:00 04/02/16 09:35 Protonix - PO 40 mg DAILY JUAN Administration Zinc Acetate/Diphenhydramine 1 applic 03/27/16 22:00 04/02/16 09:35 Benadryl 2% Cream TP 1 applic BID JUAN Administration ASSESSMENT/PLAN This is hospital day #24 for this 75 year-old female with PMH of HTN, [place] x2, pericardial effusion s/p pericardial window on 03/15. Prolonged hopsital course. Moderate pericardial effusion Severe systolic heart failure --03/09/16 Echo: LV function moderately to severely reduced, inferior wall severely hypokinetic; RV grossly normal; LAE; mild MR, mild TR, trace to mild PI ; moderate pericardial effusion with diastolic inversion of the right atrial free wall --s/p pericardial window 03/15; fungal culture pending --cytology negative for malignant cells --03/24 CT chest showed moderate pericardial effusion; reviewed by Dr. Rasheed, no recurrence of significant effusion, first one was clinically insignificant as well; no indication for repeat echo --continue low dose Lasix daily --cardiology wants repeat echo to see if effusion has reaccumulated SVT/PAT --intermittent episodes, no obvious afib --can d/c telemetry Severe sepsis Multilobar pneumonia --WBC trending down, afebrile --hemodynamically stable --completed Zosyn x 7 days --cultures negative to date --continue to observe off antibiotics --ID following Lactic acidosis, resolved Abdominal pain of uncertain etiology --03/31 CTAP: no significant change --no sign of cholecystitis --moderate about of retained stool, no ileus --bowel regimen Elevated troponins --flat trending --likely secondary to infectious process/demand ischemia Soft tissue facial injuries s/p mechanical fall, resolved Occipital laceration --surgical angelica in situ; no sign of infection --remove angelica today r/o malignancy --imaging from [facility] showed lytic lesions throughout the calvarium and the cervical spine; also with tumorous growth on RLE --no further workup per HCP Abdominal rash, resolved F/E/N Fluids: PO intake adequate Electrolyes: replete as indicated Nutrition: low sodium DVT prophylaxis: lovenox Dispo: Discussed discharge planning with daughter. Patient took out travel health insurance, copy of insurance card placed in chart. PT evaluation on Saturday. DNR/DNI. Visit type - Emergency Visit Emergency Visit: Yes ED Registration Date: 03/09/16 Care time: The patient presented to the Emergency Department on the above date and was hospitalized for further evaluation of their emergent condition. - New Patient This patient is new to me today: No - Critical Care Critical Care patient: No
--- NOTE | 2016-04-02 11:06 | PN ---
Progress Note, Physician Chief Complaint: chf, peric eff History of Present Illness: no nigerian--appears comfortable no cigs - Current Medication List Current Medications: Active Medications Acetaminophen (Tylenol -) 650 mg PO Q6H PRN PRN Reason: FEVER OR PAIN Last Admin: 03/30/16 23:00 Dose: 650 mg Albuterol Sulfate (Ventolin 0.083% Nebulizer Soln -) 1 amp NEB BID [facility] Last Admin: 04/01/16 22:00 Dose: 1 amp Albuterol/Ipratropium (Duoneb -) 1 amp NEB Q6H PRN PRN Reason: PAIN Bacitracin (Bacitracin -) 1 applic TP DAILY [facility] Last Admin: 04/02/16 09:36 Dose: 1 applic Docusate Sodium (Colace -) 100 mg PO TID PRN PRN Reason: CONSTIPATION Last Admin: 04/01/16 07:05 Dose: 100 mg Furosemide (Lasix -) 20 mg PO DAILY [facility] Last Admin: 04/02/16 09:35 Dose: 20 mg Guaifenesin (Robitussin Dm -) 5 ml PO Q6H PRN PRN Reason: COUGH Metoprolol Tartrate (Lopressor -) 37.5 mg PO TID [facility] Last Admin: 04/02/16 06:32 Dose: 37.5 mg Metoprolol Tartrate (Lopressor Injection -) 5 mg IVPUSH Q4H PRN PRN Reason: TACHYCARDIA Nystatin/Triamcinolone Acetonide (Mycolog Ii Cream -) 1 applic TP BID [facility] Last Admin: 04/02/16 09:36 Dose: 1 applic Pantoprazole Sodium (Protonix -) 40 mg PO DAILY [facility] Last Admin: 04/02/16 09:35 Dose: 40 mg Zinc Acetate/Diphenhydramine (Benadryl 2% Cream) 1 applic TP BID [facility] Last Admin: 04/02/16 09:35 Dose: 1 applic - Objective Vital Signs: Vital Signs Temperature 97.6 F 04/02/16 10:00 Pulse Rate 77 04/02/16 10:00 Respiratory Rate 18 04/02/16 10:00 Blood Pressure 115/59 04/02/16 10:00 O2 Sat by Pulse Oximetry (%) 93 L 04/02/16 10:00 Constitutional: Yes: No Distress, Calm Eyes: No: Sclera Icterus HENT: No: Nasal Congestion Cardiovascular: Yes: Regular Rate and Rhythm, JVD (to jaw), S1, S2, Other (PMI non diplaced). No: Gallop, Murmur Respiratory: Yes: CTA Bilaterally (not deep breaths). No: Accessory Muscle Use , Rales, Wheezes Gastrointestinal: Yes: Normal Bowel Sounds, Soft. No: Tenderness Musculoskeletal: Yes: Other (No kyphosis) Extremities: No: Cold Edema: No Integumentary: No: Jaundice Neurological: Yes: Alert. No: Seizure Psychiatric: No: Agitated Labs: CBC, BMP 04/01/16 09:32 04/01/16 09:32 INR, PTT INR 1.43 (0.82-1.09) H 03/29/16 09:30 - ....Imaging EKG: Other (telem: NSR) Assessment/Plan Repeat chest/abd CT 03/24: Small subpleural infiltrates, rt basilar and lingular infiltrate. Small-mod pleural effusion. small-moderate pericardial effusion. No abdominal pathology. Echo 03/09/16 : mod-sev dec lvef, inf wall hk, nl rv, mild lae, mild mr/tr, moderate pericardial eff, ?impending tamponade based on ra wall collapse Echo 03/12/16: mild con LVH. mod-sev depressed LV sys func (global), 1+ MR/TR, effusion unchanged, still with early diastolic RA collapse. Echo 03/21/16: sev dec lvef, nl rv, mild piotr, mild mr, mod-sev tr, rvsp 40-50, trivial pericardial eff, no signs tamponade tele: sr, occ pvc's a/p: 75 f (she is 83 according to family) with hx htn, h/o [place] x 2, dementia and possible recent diagnosis of cancer (unknown type), here with lethargy, weakness found to have systolic cardiomyopathy and pericardial effusion. pericardial effusion, possible acute pericarditis: -presented with moderate circumferential pericardial eff present but no signs of tamponade. clinically no signs of tamponade as well. -no obvious pericarditis, initially treated empirically with colchicine/ indomethacin but then renal fcn had worsened a little so they have been stopped -hemodynamically stable throughout, with no clinical tamponade -s/p pericardial window 03/16 (diagnostic as well) with 500 cc non-bloody fluid removed. pericardial fluid cultures, cytology pending. -repeat echo shows resolution of eff, but evidence of reaccumulation on 03/24 CT scan with symptoms of nausea. Would not diurese further. - 03/26: hemodynamically stable, bp improving. - 03/27: hemodynamically stable, bp normalized. Volume up today so will diurese. If bp drops, will plan on repeat echo to evaluate effusion. - 03/28-: ct chest was reviewed by cts and she is not felt to have any significant re-accumulation of pericardial eff. remains hemodynamically stable -04/02: will repeat echo given ongoing signif JVD syst chf: -echo here shows mod-sev decreased lvef with inferior hypokinesis, patient with h/o prior [place]--followed by doctors in [place] where she lives, per dtr (here visiting) -cont bb, bp too low for marian-i -no angina or other signs acs, ce's negx3, ecg w/o ischemic changes or significant q waves -03/12: clinically no definite chf, exam equiovocal for JVD--monitor closely with IVF. - 03/13: Now off IVF. CXR with new rt pleural effusion. No change in effusion size or hemodynamics with IVF. gentle diuresis as mentioned above. Strict I/O' s, daily weights. -03/14-: no signs chf on exam/cxr. cont to hold lasix and ivfs for now -will defer ? of need for ischemia eval to [facility] doctors (dtr states pt plans to return as soon as medically stable)--? LV dysfxn is chronic and stable -low dose BB trial as doing. ACEI trial (2.5 mg) given 03/19 but dropped blood pressures. -03/20: Bp trending down s/p lasix and lisinopril yesterday evening. will hold dose this morning. Consider resuming again tomorrow if bp remains stable. WBC rising and cough worsening. Would repeat chest CT. -03/21: still with some chf on imaging and pericardial effusion improved (small on ct chest) so will give iv lasix dose today to help with congestion. -03/22: still with some chf on cxr so agree with 40 iv lasix dose today to help with congestion. -03/23-03/24: developing signs of infection (possible multifocal pna), poor po intake. Holding diuretics. Maintenance fluids today 03/24. Continue daily weights. -03/25-03/26: BP improved signifcantly on antibiotics. Con't to hold diuresis. - 03/27: Volume up today, will give trial dose of lasix 20 mg IV x 1. -03/28: cont prn lasix for now, avoid excess ivfs -03/29-: cont low dose maintenance lasix 20 po qd -04/02: JVD to neck--rpt limited echo today to r/o hemodynamically-signif peric effusion, as above; lasix 20 IVP x 1 today--may need more diuresis depending on bp response after test dose (i.e. no hypotension) and echo findings svt/PAT: -has had periodically during admit here. no obvious afib, cont to monitor on tele. -cont bb leukocytosis: -unclear etiology, being followed by ID lethargy/weakness: -head ct w/o acute findings. likely 2/2 to aforementioned acute illnesses. -PT htn: - cont bb. elevated trop: -trop borderline elevated (peak 0.28) the day after episode of prolonged SVT/ fever. Nl ck, no ischemic changes on ecgs. likely due to demand ischemia from svt in setting of known CAD. Troponin trended down. No signs of acs presently malignancy: -imaging at OSH shows lytic lesions in spine, HCP declines eval, wants her to go back home to [place]
[2016-04-02 11:14] LABS: BASOPHIL 0.3 % (0-2.0); EOSINOPHIL 2.2 % (0-4.5); MCH 30.5 pg (25.7-33.7); MCHC 32.5 g/dl (32.0-36.0); MEAN CELL VOLUME 93.9 fl (80-96); MEAN PLT VOLUME 9.5 fl (7.5-11.1); PLATELET COUNT 265 K/MM3 (134-434); RDW 18.1 % (11.6-15.6); WHITE BLOOD COUNT 12.1 K/mm3 (4.0-10.0)
[2016-04-02 11:46] LABS: ALBUMIN 2.1 g/dl (3.4-5.0); ALK PHOS 108 U/L (45-117); ANION GAP 6 (8-16); BILIRUBIN,TOTAL 0.4 mg/dL (0.2-1.0); CALCIUM 8.2 mg/dL (8.5-10.1); CO2 30 mmol/L (21-32); CREATININE 0.6 mg/dL (0.55-1.02); GLUCOSE,RANDOM 216 mg/dL (74-106); SGOT/AST 13 U/L (15-37); SGPT/ALT 30 U/L (12-78); TOT PROT 6.2 g/dl (6.4-8.2)
[2016-04-02] MEDS ORDERED: FUROSEMIDE 40 MG/4 ML INJECTABLE VIAL IVPUSH ONE (12:00)
--- NOTE | 2016-04-02 15:21 | PN ---
Progress Note, Physician History of Present Illness: Pt seen and examined at bedside. She appears weak and fatigued. - Current Medication List Current Medications: Active Medications Acetaminophen (Tylenol -) 650 mg PO Q6H PRN PRN Reason: FEVER OR PAIN Last Admin: 03/30/16 23:00 Dose: 650 mg Albuterol Sulfate (Ventolin 0.083% Nebulizer Soln -) 1 amp NEB BID [facility] Last Admin: 04/02/16 10:35 Dose: 1 amp Albuterol/Ipratropium (Duoneb -) 1 amp NEB Q6H PRN PRN Reason: PAIN Bacitracin (Bacitracin -) 1 applic TP DAILY [facility] Last Admin: 04/02/16 09:36 Dose: 1 applic Docusate Sodium (Colace -) 100 mg PO TID PRN PRN Reason: CONSTIPATION Last Admin: 04/01/16 07:05 Dose: 100 mg Furosemide (Lasix -) 20 mg PO DAILY [facility] Last Admin: 04/02/16 09:35 Dose: 20 mg Guaifenesin (Robitussin Dm -) 5 ml PO Q6H PRN PRN Reason: COUGH Metoprolol Tartrate (Lopressor -) 37.5 mg PO TID [facility] Last Admin: 04/02/16 14:17 Dose: 37.5 mg Metoprolol Tartrate (Lopressor Injection -) 5 mg IVPUSH Q4H PRN PRN Reason: TACHYCARDIA Nystatin/Triamcinolone Acetonide (Mycolog Ii Cream -) 1 applic TP BID [facility] Last Admin: 04/02/16 09:36 Dose: 1 applic Pantoprazole Sodium (Protonix -) 40 mg PO DAILY [facility] Last Admin: 04/02/16 09:35 Dose: 40 mg Zinc Acetate/Diphenhydramine (Benadryl 2% Cream) 1 applic TP BID [facility] Last Admin: 04/02/16 09:35 Dose: 1 applic - Objective Vital Signs: Vital Signs Temperature 98.0 F 04/02/16 15:00 Pulse Rate 84 04/02/16 15:00 Respiratory Rate 18 04/02/16 15:00 Blood Pressure 132/74 04/02/16 15:00 O2 Sat by Pulse Oximetry (%) 95 04/02/16 10:45 Constitutional: Yes: Calm Neck: Yes: Other (JVD) Cardiovascular: Yes: S1, S2 Respiratory: Yes: On Nasal O2 Gastrointestinal: Yes: Soft Genitourinary: Yes: Cooper Present Musculoskeletal: Yes: Muscle Weakness Edema: No Neurological: Yes: Oriented Labs: CBC, BMP 04/02/16 10:55 04/02/16 10:55 INR, PTT INR 1.43 (0.82-1.09) H 03/29/16 09:30 Problem List - Problems (1) Hypoxia Code(s): R09.02 - HYPOXEMIA (2) Lethargy Code(s): R53.83 - OTHER FATIGUE (3) Pericardial effusion Code(s): I31.3 - PERICARDIAL EFFUSION (NONINFLAMMATORY) (4) Proteinuria Code(s): R80.9 - PROTEINURIA, UNSPECIFIED (5) Hypertension Code(s): I10 - ESSENTIAL (PRIMARY) HYPERTENSION (6) Skin cancer Code(s): C44.90 - UNSPECIFIED MALIGNANT NEOPLASM OF SKIN, UNSPECIFIED Assessment/Plan Current Medications Generic Name Dose Route Start Last Admin Trade Name Freq PRN Reason Stop Dose Admin Acetaminophen 650 mg 03/27/16 18:12 03/30/16 23:00 Tylenol - PO 650 mg Q6H PRN Administration FEVER OR PAIN Albuterol Sulfate 1 amp 03/27/16 22:00 04/02/16 10:35 Ventolin 0.083% Nebulizer Soln - NEB 1 amp BID JUAN Administration Albuterol/Ipratropium 1 amp 03/27/16 18:12 Duoneb - NEB Q6H PRN PAIN Bacitracin 1 applic 03/28/16 10:00 04/02/16 09:36 Bacitracin - TP 1 applic DAILY JUAN Administration Docusate Sodium 100 mg 03/27/16 18:12 04/01/16 07:05 Colace - PO 100 mg TID PRN Administration CONSTIPATION Furosemide 20 mg 03/29/16 14:00 04/02/16 09:35 Lasix - PO 20 mg DAILY JUAN Administration Guaifenesin 5 ml 03/27/16 18:12 Robitussin Dm - PO Q6H PRN COUGH Metoprolol Tartrate 37.5 mg 03/27/16 22:00 04/02/16 14:17 Lopressor - PO 37.5 mg TID JUAN Administration Metoprolol Tartrate 5 mg 03/27/16 18:12 Lopressor Injection - IVPUSH Q4H PRN TACHYCARDIA Nystatin/Triamcinolone Acetonide 1 applic 03/27/16 22:00 04/02/16 09:36 Mycolog Ii Cream - TP 1 applic BID JUAN Administration Pantoprazole Sodium 40 mg 03/28/16 10:00 04/02/16 09:35 Protonix - PO 40 mg DAILY JUAN Administration Zinc Acetate/Diphenhydramine 1 applic 03/27/16 22:00 04/02/16 09:35 Benadryl 2% Cream TP 1 applic BID JUAN Administration Impression 1. pericardial effusion 2. hypoxia 3. proteinuria 4. HTN 5. skin cancer 6. congestion on cxr 7. s/p fall and laceration to head 8. hyperkalemia 9. azotemia Plan - cont with lasix - follow up echo - monitor labs - encourage PO intake - will follow PRN - cont current management Dr Ruth
[2016-04-02] MEDS ORDERED: BISACODYL 10 MG SUPP.RECT PR ONE (16:49)
--- NOTE | 2016-04-02 17:06 | PN ---
Progress Note, Physician History of Present Illness: stable weakness according to the daughter - Current Medication List Current Medications: Active Medications Acetaminophen (Tylenol -) 650 mg PO Q6H PRN PRN Reason: FEVER OR PAIN Last Admin: 03/30/16 23:00 Dose: 650 mg Albuterol Sulfate (Ventolin 0.083% Nebulizer Soln -) 1 amp NEB BID [facility] Last Admin: 04/02/16 10:35 Dose: 1 amp Albuterol/Ipratropium (Duoneb -) 1 amp NEB Q6H PRN PRN Reason: PAIN Bacitracin (Bacitracin -) 1 applic TP DAILY [facility] Last Admin: 04/02/16 09:36 Dose: 1 applic Docusate Sodium (Colace -) 100 mg PO TID PRN PRN Reason: CONSTIPATION Last Admin: 04/01/16 07:05 Dose: 100 mg Furosemide (Lasix -) 20 mg PO DAILY [facility] Last Admin: 04/02/16 09:35 Dose: 20 mg Guaifenesin (Robitussin Dm -) 5 ml PO Q6H PRN PRN Reason: COUGH Metoprolol Tartrate (Lopressor -) 37.5 mg PO TID [facility] Last Admin: 04/02/16 14:17 Dose: 37.5 mg Metoprolol Tartrate (Lopressor Injection -) 5 mg IVPUSH Q4H PRN PRN Reason: TACHYCARDIA Nystatin/Triamcinolone Acetonide (Mycolog Ii Cream -) 1 applic TP BID [facility] Last Admin: 04/02/16 09:36 Dose: 1 applic Pantoprazole Sodium (Protonix -) 40 mg PO DAILY [facility] Last Admin: 04/02/16 09:35 Dose: 40 mg Polyethylene Glycol (Miralax (For Daily Use) -) 17 gm PO BID [facility] Zinc Acetate/Diphenhydramine (Benadryl 2% Cream) 1 applic TP BID [facility] Last Admin: 04/02/16 09:35 Dose: 1 applic - Objective Vital Signs: Vital Signs Temperature 98.0 F 04/02/16 15:00 Pulse Rate 84 04/02/16 15:00 Respiratory Rate 18 04/02/16 15:00 Blood Pressure 132/74 04/02/16 15:00 O2 Sat by Pulse Oximetry (%) 95 04/02/16 10:45 Constitutional: Yes: No Distress, Calm Cardiovascular: Yes: Regular Rate and Rhythm Respiratory: Yes: Regular, Poor Air Entry Gastrointestinal: Yes: Normal Bowel Sounds, Soft Musculoskeletal: Yes: Other Extremities: Yes: WNL Neurological: Yes: Alert, Oriented Labs: CBC, BMP 04/02/16 10:55 04/02/16 10:55 INR, PTT INR 1.43 (0.82-1.09) H 03/29/16 09:30 Assessment/Plan Problem List - Problems (1) Hypoxia Code(s): R09.02 - HYPOXEMIA (2) Lethargy Code(s): R53.83 - OTHER FATIGUE (3) Pericardial effusion Code(s): I31.3 - PERICARDIAL EFFUSION (NONINFLAMMATORY) (4) Proteinuria Code(s): R80.9 - PROTEINURIA, UNSPECIFIED (5) Hypertension Code(s): I10 - ESSENTIAL (PRIMARY) HYPERTENSION (6) Skin cancer Code(s): C44.90 - UNSPECIFIED MALIGNANT NEOPLASM OF SKIN, UNSPECIFIED abd pain cough plan wbc trending down continue monitoring physio
[2016-04-02] MEDS: POLYETHYLENE GLYCOL 3350 119 GM BTL PO SCH (21:49)
[2016-04-02] MEDS: ACETAMINOPHEN 325 MG TABLET (FP) PO PRN (21:51)
[2016-04-03] MEDS: METOPROLOL TARTRATE 25 MG TABLET (FP) PO SCH ×3 (06:11→21:57)
--- NOTE | 2016-04-03 08:20 | PN ---
Physical Exam: SUBJECTIVE: Patient seen and examined. OBJECTIVE: Vital Signs Period Temp Pulse Resp BP Sys/[place]ford Pulse Ox Last 24 Hr 96.8 F-98.0 F 76-90 18-20 111-132/59-74 93-95 GENERAL: The patient is awake, alert. Weak. Frail. HEAD: Surgical angelica removed. EYES: PERRL, sclera anicteric, conjunctiva clear. No ptosis. LUNGS: Diffuse crackles, inspiratory wheezing anterior upper lobes HEART: Regular rate and rhythm, S1, S2 ABDOMEN: Diffuse abdominal tenderness EXTREMITIES: 2+ pulses, warm, well-perfused, no edema. 4cm tumorous growth RLE. NEUROLOGICAL: Cranial nerves II through XII grossly intact. Laboratory Results - last 24 hr 04/02/16 04/02/16 10:55 10:55 WBC 12.1 H RBC 3.59 L Hgb 10.9 Hct 33.7 MCV 93.9 MCHC 32.5 RDW 18.1 H Plt Count 265 MPV 9.5 Neutrophils % 81.0 Lymphocytes % 5.3 L Monocytes % 11.2 H Eosinophils % 2.2 D Basophils % 0.3 Sodium 134 L Potassium 5.1 Chloride 98 Carbon Dioxide 30 Anion Gap 6 L BUN 15 D Creatinine 0.6 Creat Clearance w eGFR > 60 Random Glucose 216 H D Calcium 8.2 L Magnesium 2.0 Total Bilirubin 0.4 AST 13 L D ALT 30 Alkaline Phosphatase 108 Total Protein 6.2 L Albumin 2.1 L Active Medications Generic Name Dose Route Start Last Admin Trade Name Freq PRN Reason Stop Dose Admin Acetaminophen 650 mg 03/27/16 18:12 04/02/16 21:51 Tylenol - PO 650 mg Q6H PRN Administration FEVER OR PAIN Albuterol Sulfate 1 amp 03/27/16 22:00 04/02/16 23:50 Ventolin 0.083% Nebulizer Soln - NEB 1 amp BID JUAN Administration Albuterol/Ipratropium 1 amp 03/27/16 18:12 Duoneb - NEB Q6H PRN PAIN Bacitracin 1 applic 03/28/16 10:00 04/02/16 09:36 Bacitracin - TP 1 applic DAILY JUAN Administration Docusate Sodium 100 mg 03/27/16 18:12 04/01/16 07:05 Colace - PO 100 mg TID PRN Administration CONSTIPATION Furosemide 20 mg 03/29/16 14:00 04/02/16 09:35 Lasix - PO 20 mg DAILY JUAN Administration Guaifenesin 5 ml 03/27/16 18:12 Robitussin Dm - PO Q6H PRN COUGH Metoprolol Tartrate 37.5 mg 03/27/16 22:00 04/03/16 06:11 Lopressor - PO 37.5 mg TID JUAN Administration Metoprolol Tartrate 5 mg 03/27/16 18:12 Lopressor Injection - IVPUSH Q4H PRN TACHYCARDIA Nystatin/Triamcinolone Acetonide 1 applic 03/27/16 22:00 04/02/16 21:49 Mycolog Ii Cream - TP 1 applic BID JUAN Administration Pantoprazole Sodium 40 mg 03/28/16 10:00 04/02/16 09:35 Protonix - PO 40 mg DAILY JUAN Administration Polyethylene Glycol 17 gm 04/02/16 22:00 04/02/16 21:49 Miralax (For Daily Use) - PO 17 gm BID JUAN Administration Zinc Acetate/Diphenhydramine 1 applic 03/27/16 22:00 04/02/16 21:49 Benadryl 2% Cream TP 1 applic BID JUAN Administration ASSESSMENT/PLAN: This is hospital day #25 for this 75 year-old female with PMH of HTN, HI x2, pericardial effusion s/p pericardial window on 03/15. Prolonged hopsital course. Moderate pericardial effusion, improved --04/02 Echo: small, loculated pericardial effusion, smaller than previous, no signs of tamponade Severe systolic heart failure, improved --04/02 Echo: normal LV, no RWMA; RV not assessed; mild MR, moderate TR Pulmonary congestion --increase Lasix to 40mg PO QD SVT/PAT --no recent episodes --can d/c telemetry Severe sepsis Multilobar pneumonia --WBC trending down, afebrile --hemodynamically stable --completed Zosyn x 7 days --cultures negative to date --continue to observe off antibiotics --ID following Lactic acidosis, resolved Cholilithiasis --gallbladder full of stones, US and CT imaging show no sign of cholecystitis Abdominal pain likely constipation --has had several large, soft BMs, feels better --continue bowel regimen Elevated troponins --flat trending --likely secondary to infectious process/demand ischemia Soft tissue facial injuries s/p mechanical fall, resolved Occipital laceration --surgical angelica removed r/o malignancy --imaging from [facility] showed lytic lesions throughout the calvarium and the cervical spine; also with tumorous growth on RLE --no further workup per HCP Abdominal rash, resolved F/E/N Fluids: PO intake adequate Electrolyes: replete as indicated Nutrition: low sodium DVT prophylaxis: lovenox Dispo: Discharge planning ongoing. Difficult because patient is from [place], became ill during a visit to [place], and has very limited emergency travel health insurance. SW working on O2, walker, wheelchair, etc. DNR/DNI. Visit type - Emergency Visit Emergency Visit: Yes ED Registration Date: 03/09/16 Care time: The patient presented to the Emergency Department on the above date and was hospitalized for further evaluation of their emergent condition. - New Patient This patient is new to me today: No - Critical Care Critical Care patient: No
[2016-04-03 08:35] LABS: BASOPHIL 0.5 % (0-2.0); EOSINOPHIL 2.1 % (0-4.5); MCH 30.1 pg (25.7-33.7); MCHC 32.3 g/dl (32.0-36.0); MEAN CELL VOLUME 93.2 fl (80-96); MEAN PLT VOLUME 9.3 fl (7.5-11.1); NEUTROPHILS 80.5 % (42.8-82.8); PLATELET COUNT 286 K/MM3 (134-434); RDW 17.9 % (11.6-15.6); WHITE BLOOD COUNT 10.8 K/mm3 (4.0-10.0)
[2016-04-03 09:05] LABS: ALBUMIN 2.2 g/dl (3.4-5.0); ALK PHOS 104 U/L (45-117); ANION GAP 5 (8-16); BILIRUBIN,TOTAL 0.3 mg/dL (0.2-1.0); CALCIUM 8.8 mg/dL (8.5-10.1); CO2 33 mmol/L (21-32); CREATININE 0.6 mg/dL (0.55-1.02); GLUCOSE,RANDOM 140 mg/dL (74-106); MAGNESIUM 2.1 mg/dL (1.8-2.4); SGOT/AST 15 U/L (15-37); SGPT/ALT 26 U/L (12-78); TOT PROT 6.5 g/dl (6.4-8.2)
[2016-04-03] MEDS: NYSTATIN/TRIAMCINOLONE TOPICAL CREAM 15 GM TUBE TP SCH ×2 (09:39→21:58)
[2016-04-03] MEDS: FUROSEMIDE 20 MG TABLET (FP) PO SCH (09:39)
[2016-04-03] MEDS: PANTOPRAZOLE 40 MG TABLET (FP) PO SCH (09:39)
[2016-04-03] MEDS: POLYETHYLENE GLYCOL 3350 119 GM BTL PO SCH ×2 (09:39→21:58)
[2016-04-03] MEDS: BACITRACIN 30 GM TUBE TOPICAL OINTMENT TP SCH (09:40)
[2016-04-03] MEDS: ALBUTEROL SO4 0.083% IH SOL 2.5 MG/3 ML VIAL.NEB. NEB SCH ×2 (11:00→23:30)
--- NOTE | 2016-04-03 11:47 | PN ---
Progress Note (short form) - Note Progress Note: Chief Complaint: chf, peric eff History of Present Illness: no hungarian--appears comfortable. Received extra dose of lasix 20 mg iV x 1 yesterday. 20 mg PO lasix yesterday and today. Bp tolerated. no cigs Current Medications Acetaminophen (Tylenol -) 650 mg PO Q6H PRN PRN Reason: FEVER OR PAIN Last Admin: 04/02/16 21:51 Dose: 650 mg Albuterol Sulfate (Ventolin 0.083% Nebulizer Soln -) 1 amp NEB BID [facility] Last Admin: 04/02/16 23:50 Dose: 1 amp Albuterol/Ipratropium (Duoneb -) 1 amp NEB Q6H PRN PRN Reason: PAIN Bacitracin (Bacitracin -) 1 applic TP DAILY [facility] Last Admin: 04/03/16 09:40 Dose: 1 applic Docusate Sodium (Colace -) 100 mg PO TID PRN PRN Reason: CONSTIPATION Last Admin: 04/01/16 07:05 Dose: 100 mg Furosemide (Lasix -) 40 mg PO DAILY [facility] Guaifenesin (Robitussin Dm -) 5 ml PO Q6H PRN PRN Reason: COUGH Metoprolol Tartrate (Lopressor -) 37.5 mg PO TID [facility] Last Admin: 04/03/16 06:11 Dose: 37.5 mg Metoprolol Tartrate (Lopressor Injection -) 5 mg IVPUSH Q4H PRN PRN Reason: TACHYCARDIA Nystatin/Triamcinolone Acetonide (Mycolog Ii Cream -) 1 applic TP BID [facility] Last Admin: 04/03/16 09:39 Dose: 1 applic Pantoprazole Sodium (Protonix -) 40 mg PO DAILY [facility] Last Admin: 04/03/16 09:39 Dose: 40 mg Polyethylene Glycol (Miralax (For Daily Use) -) 17 gm PO BID [facility] Last Admin: 04/03/16 09:39 Dose: 17 gm Zinc Acetate/Diphenhydramine (Benadryl 2% Cream) 1 applic TP BID [facility] Last Admin: 04/03/16 09:39 Dose: 1 applic Vital Signs - 24 hr 04/02/16 04/02/16 04/02/16 15:00 17:17 22:03 Temperature 98.0 F 97.7 F 98 F Pulse Rate 84 90 88 Respiratory 18 18 20 Rate Blood Pressure 132/74 122/65 122/67 O2 Sat by Pulse Oximetry (%) 04/02/16 04/03/16 04/03/16 22:05 02:34 06:00 Temperature 97.5 F L 96.8 F L Pulse Rate 79 76 Respiratory 20 18 20 Rate Blood Pressure 111/61 130/62 O2 Sat by Pulse 95 Oximetry (%) Intake & Output 04/01/16 04/02/16 04/03/16 04/04/16 07:59 07:59 07:59 07:59 Intake Total 260 440 Output Total 750 800 Balance -750 -540 440 Weight 118 lb 1 oz 111 lb 7 oz Constitutional: Yes: No Distress, Calm Eyes: No: Sclera Icterus HENT: No: Nasal Congestion Cardiovascular: Yes: Regular Rate and Rhythm, JVD elevated, S1, S2, Other (PMI non diplaced). No: Gallop, Murmur Respiratory: Yes: bibasilar crackles (not deep breaths). No: Accessory Muscle Use, Rales, Wheezes Gastrointestinal: Yes: Normal Bowel Sounds, Soft. No: Tenderness Musculoskeletal: Yes: Other (No kyphosis) Extremities: No: Cold Edema: No Integumentary: No: Jaundice Neurological: Yes: Alert. No: Seizure Psychiatric: No: Agitated Labs: CBC, BMP 04/03/16 08:15 04/03/16 08:15 Laboratory Tests 04/03/16 08:15 Magnesium 2.1 Albumin 2.2 L - ....Imaging EKG: Other (off telem now, previously: NSR) Assessment/Plan Repeat chest/abd CT 03/24: Small subpleural infiltrates, rt basilar and lingular infiltrate. Small-mod pleural effusion. small-moderate pericardial effusion. No abdominal pathology. Echo 03/09/16 : mod-sev dec lvef, inf wall hk, nl rv, mild lae, mild mr/tr, moderate pericardial eff, ?impending tamponade based on ra wall collapse Echo 03/12/16: mild con LVH. mod-sev depressed LV sys func (global), 1+ MR/TR, effusion unchanged, still with early diastolic RA collapse. Echo 03/21/16: sev dec lvef, nl rv, mild ipotr, mild mr, mod-sev tr, rvsp 40-50, trivial pericardial eff, no signs tamponade Echo 04/02/16: Nl lv size/fn. RV not assessed. 1+ MR. MOd TR. Small effusion. tele: sr, occ pvc's a/p: 75 f (she is 83 according to family) with hx htn, h/o [place] x 2, dementia and possible recent diagnosis of cancer (unknown type), here with lethargy, weakness found to have systolic cardiomyopathy and pericardial effusion. pericardial effusion, possible acute pericarditis: -presented with moderate circumferential pericardial eff present but no signs of tamponade. clinically no signs of tamponade as well. -no obvious pericarditis, initially treated empirically with colchicine/ indomethacin but then renal fcn had worsened a little so they have been stopped -hemodynamically stable throughout, with no clinical tamponade -s/p pericardial window 03/16 (diagnostic as well) with 500 cc non-bloody fluid removed. pericardial fluid cultures, cytology pending. -repeat echo shows resolution of eff, but evidence of reaccumulation on 03/24 CT scan with symptoms of nausea. Would not diurese further. - 03/26: hemodynamically stable, bp improving. - 03/27: hemodynamically stable, bp normalized. Volume up today so will diurese. If bp drops, will plan on repeat echo to evaluate effusion. - 03/28-: ct chest was reviewed by cts and she is not felt to have any significant re-accumulation of pericardial eff. remains hemodynamically stable -04/02: Repeat echo with nl lv function. Minimal reaccumulation of pericardial effusion since drain (small) syst chf: -echo here shows mod-sev decreased lvef with inferior hypokinesis, patient with h/o prior MO--followed by doctors in [place] where she lives, per dtr (here visiting) -cont bb, bp too low for marian-i -no angina or other signs acs, ce's negx3, ecg w/o ischemic changes or significant q waves -03/12: clinically no definite chf, exam equiovocal for JVD--monitor closely with IVF. - 03/13: Now off IVF. CXR with new rt pleural effusion. No change in effusion size or hemodynamics with IVF. gentle diuresis as mentioned above. Strict I/O' s, daily weights. -03/14-: no signs chf on exam/cxr. cont to hold lasix and ivfs for now -will defer ? of need for ischemia eval to [place] doctors (dtr states pt plans to return as soon as medically stable)--? LV dysfxn is chronic and stable -low dose BB trial as doing. ACEI trial (2.5 mg) given 03/19 but dropped blood pressures. -03/20: Bp trending down s/p lasix and lisinopril yesterday evening. will hold dose this morning. Consider resuming again tomorrow if bp remains stable. WBC rising and cough worsening. Would repeat chest CT. -03/21: still with some chf on imaging and pericardial effusion improved (small on ct chest) so will give iv lasix dose today to help with congestion. -03/22: still with some chf on cxr so agree with 40 iv lasix dose today to help with congestion. -03/23-03/24: developing signs of infection (possible multifocal pna), poor po intake. Holding diuretics. Maintenance fluids today 03/24. Continue daily weights. -03/25-03/26: BP improved signifcantly on antibiotics. Con't to hold diuresis. - 03/27: Volume up today, will give trial dose of lasix 20 mg IV x 1. -03/28: cont prn lasix for now, avoid excess ivfs -03/29-: cont low dose maintenance lasix 20 po qd -04/02: JVD to neck--rpt limited echo today to r/o hemodynamically-signif peric effusion, as above; lasix 20 IVP x 1 today--may need more diuresis depending on bp response after test dose (i.e. no hypotension) and echo findings --> stable bp after IV lasix - 04/03. weight down today. PO dose uptitrated to 40 mg/day for tomorrow. Revaluate tomorrow for need for further IV lasix. svt/PAT: -has had periodically during admit here. no obvious afib, now off tele -cont bb leukocytosis: -unclear etiology, being followed by ID lethargy/weakness: -head ct w/o acute findings. likely 2/2 to aforementioned acute illnesses. -PT htn: - cont bb. elevated trop: -trop borderline elevated (peak 0.28) the day after episode of prolonged SVT/ fever. Nl ck, no ischemic changes on ecgs. likely due to demand ischemia from svt in setting of known CAD. Troponin trended down. No signs of acs presently malignancy: -imaging at [facility]SH shows lytic lesions in spine, HCP declines eval, wants her to go back home to [place]
--- NOTE | 2016-04-03 14:03 | PN ---
Progress Note, Physician History of Present Illness: stable no specific events overnight - Current Medication List Current Medications: Active Medications Acetaminophen (Tylenol -) 650 mg PO Q6H PRN PRN Reason: FEVER OR PAIN Last Admin: 04/02/16 21:51 Dose: 650 mg Albuterol Sulfate (Ventolin 0.083% Nebulizer Soln -) 1 amp NEB BID [facility] Last Admin: 04/03/16 11:00 Dose: 1 amp Albuterol/Ipratropium (Duoneb -) 1 amp NEB Q6H PRN PRN Reason: PAIN Bacitracin (Bacitracin -) 1 applic TP DAILY [facility] Last Admin: 04/03/16 09:40 Dose: 1 applic Docusate Sodium (Colace -) 100 mg PO TID PRN PRN Reason: CONSTIPATION Last Admin: 04/01/16 07:05 Dose: 100 mg Furosemide (Lasix -) 40 mg PO DAILY [facility] Guaifenesin (Robitussin Dm -) 5 ml PO Q6H PRN PRN Reason: COUGH Metoprolol Tartrate (Lopressor -) 37.5 mg PO TID [facility] Last Admin: 04/03/16 06:11 Dose: 37.5 mg Metoprolol Tartrate (Lopressor Injection -) 5 mg IVPUSH Q4H PRN PRN Reason: TACHYCARDIA Nystatin/Triamcinolone Acetonide (Mycolog Ii Cream -) 1 applic TP BID [facility] Last Admin: 04/03/16 09:39 Dose: 1 applic Pantoprazole Sodium (Protonix -) 40 mg PO DAILY [facility] Last Admin: 04/03/16 09:39 Dose: 40 mg Polyethylene Glycol (Miralax (For Daily Use) -) 17 gm PO BID [facility] Last Admin: 04/03/16 09:39 Dose: 17 gm Zinc Acetate/Diphenhydramine (Benadryl 2% Cream) 1 applic TP BID [facility] Last Admin: 04/03/16 09:39 Dose: 1 applic - Objective Vital Signs: Vital Signs Temperature 97.9 F 04/03/16 13:50 Pulse Rate 77 04/03/16 13:50 Respiratory Rate 20 04/03/16 13:50 Blood Pressure 115/58 04/03/16 13:50 O2 Sat by Pulse Oximetry (%) 95 04/03/16 12:19 Constitutional: Yes: No Distress, Calm Cardiovascular: Yes: Regular Rate and Rhythm Respiratory: Yes: Regular Gastrointestinal: Yes: Normal Bowel Sounds, Soft Musculoskeletal: Yes: WNL Extremities: Yes: WNL Neurological: Yes: Alert, Oriented Psychiatric: Yes: Alert Labs: CBC, BMP 04/03/16 08:15 04/03/16 08:15 INR, PTT INR 1.43 (0.82-1.09) H 03/29/16 09:30 Assessment/Plan Problem List - Problems (1) Hypoxia Code(s): R09.02 - HYPOXEMIA (2) Lethargy Code(s): R53.83 - OTHER FATIGUE (3) Pericardial effusion Code(s): I31.3 - PERICARDIAL EFFUSION (NONINFLAMMATORY) (4) Proteinuria Code(s): R80.9 - PROTEINURIA, UNSPECIFIED (5) Hypertension Code(s): I10 - ESSENTIAL (PRIMARY) HYPERTENSION (6) Skin cancer Code(s): C44.90 - UNSPECIFIED MALIGNANT NEOPLASM OF SKIN, UNSPECIFIED abd pain cough plan wbc trending down continue monitoring physio
--- NOTE | 2016-04-03 16:42 | PN ---
Progress Note, Physician History of Present Illness: Pt seen and examined at bedside. She is awake and sitting up in a chair. - Current Medication List Current Medications: Active Medications Acetaminophen (Tylenol -) 650 mg PO Q6H PRN PRN Reason: FEVER OR PAIN Last Admin: 04/02/16 21:51 Dose: 650 mg Albuterol Sulfate (Ventolin 0.083% Nebulizer Soln -) 1 amp NEB BID [facility] Last Admin: 04/03/16 11:00 Dose: 1 amp Albuterol/Ipratropium (Duoneb -) 1 amp NEB Q6H PRN PRN Reason: PAIN Bacitracin (Bacitracin -) 1 applic TP DAILY [facility] Last Admin: 04/03/16 09:40 Dose: 1 applic Docusate Sodium (Colace -) 100 mg PO TID PRN PRN Reason: CONSTIPATION Last Admin: 04/01/16 07:05 Dose: 100 mg Furosemide (Lasix -) 40 mg PO DAILY [facility] Guaifenesin (Robitussin Dm -) 5 ml PO Q6H PRN PRN Reason: COUGH Metoprolol Tartrate (Lopressor -) 37.5 mg PO TID [facility] Last Admin: 04/03/16 14:46 Dose: 37.5 mg Metoprolol Tartrate (Lopressor Injection -) 5 mg IVPUSH Q4H PRN PRN Reason: TACHYCARDIA Nystatin/Triamcinolone Acetonide (Mycolog Ii Cream -) 1 applic TP BID [facility] Last Admin: 04/03/16 09:39 Dose: 1 applic Pantoprazole Sodium (Protonix -) 40 mg PO DAILY [facility] Last Admin: 04/03/16 09:39 Dose: 40 mg Polyethylene Glycol (Miralax (For Daily Use) -) 17 gm PO BID [facility] Last Admin: 04/03/16 09:39 Dose: 17 gm Zinc Acetate/Diphenhydramine (Benadryl 2% Cream) 1 applic TP BID [facility] Last Admin: 04/03/16 09:39 Dose: 1 applic - Objective Vital Signs: Vital Signs Temperature 97.9 F 04/03/16 13:50 Pulse Rate 77 04/03/16 13:50 Respiratory Rate 20 04/03/16 13:50 Blood Pressure 115/58 04/03/16 13:50 O2 Sat by Pulse Oximetry (%) 95 04/03/16 12:19 Constitutional: Yes: Calm Eyes: Yes: Conjunctiva Clear Cardiovascular: Yes: JVD, S1, S2 Respiratory: Yes: CTA Bilaterally, On Nasal O2 Gastrointestinal: Yes: Soft Genitourinary: Yes: WNL Musculoskeletal: Yes: Muscle Weakness Edema: No Neurological: Yes: Oriented Labs: CBC, BMP 04/03/16 08:15 04/03/16 08:15 INR, PTT INR 1.43 (0.82-1.09) H 03/29/16 09:30 Problem List - Problems (1) Hypoxia Code(s): R09.02 - HYPOXEMIA (2) Lethargy Code(s): R53.83 - OTHER FATIGUE (3) Pericardial effusion Code(s): I31.3 - PERICARDIAL EFFUSION (NONINFLAMMATORY) (4) Proteinuria Code(s): R80.9 - PROTEINURIA, UNSPECIFIED (5) Hypertension Code(s): I10 - ESSENTIAL (PRIMARY) HYPERTENSION (6) Skin cancer Code(s): C44.90 - UNSPECIFIED MALIGNANT NEOPLASM OF SKIN, UNSPECIFIED Assessment/Plan Current Medications Generic Name Dose Route Start Last Admin Trade Name Freq PRN Reason Stop Dose Admin Acetaminophen 650 mg 03/27/16 18:12 04/02/16 21:51 Tylenol - PO 650 mg Q6H PRN Administration FEVER OR PAIN Albuterol Sulfate 1 amp 03/27/16 22:00 04/03/16 11:00 Ventolin 0.083% Nebulizer Soln - NEB 1 amp BID JUAN Administration Albuterol/Ipratropium 1 amp 03/27/16 18:12 Duoneb - NEB Q6H PRN PAIN Bacitracin 1 applic 03/28/16 10:00 04/03/16 09:40 Bacitracin - TP 1 applic DAILY JUAN Administration Docusate Sodium 100 mg 03/27/16 18:12 04/01/16 07:05 Colace - PO 100 mg TID PRN Administration CONSTIPATION Furosemide 40 mg 04/04/16 10:00 Lasix - PO DAILY [facility] Guaifenesin 5 ml 03/27/16 18:12 Robitussin Dm - PO Q6H PRN COUGH Metoprolol Tartrate 37.5 mg 03/27/16 22:00 04/03/16 14:46 Lopressor - PO 37.5 mg TID JUAN Administration Metoprolol Tartrate 5 mg 03/27/16 18:12 Lopressor Injection - IVPUSH Q4H PRN TACHYCARDIA Nystatin/Triamcinolone Acetonide 1 applic 03/27/16 22:00 04/03/16 09:39 Mycolog Ii Cream - TP 1 applic BID JUAN Administration Pantoprazole Sodium 40 mg 03/28/16 10:00 04/03/16 09:39 Protonix - PO 40 mg DAILY JUAN Administration Polyethylene Glycol 17 gm 04/02/16 22:00 04/03/16 09:39 Miralax (For Daily Use) - PO 17 gm BID JUAN Administration Zinc Acetate/Diphenhydramine 1 applic 03/27/16 22:00 04/03/16 09:39 Benadryl 2% Cream TP 1 applic BID JUAN Administration Impression 1. pericardial effusion 2. hypoxia 3. proteinuria 4. HTN 5. skin cancer 6. congestion on cxr 7. s/p fall and laceration to head 8. hyperkalemia 9. azotemia Plan - echo reviewed, effusion is improved slightly - daughter paged me today, called back but no response - monitor renal function and potassium on lasix - increase PO dose to 40 - cont with pt/rehab - will follow PRN - cont current management Dr Ruth
[2016-04-03] MEDS ORDERED: LIDOCAINE HCL 1%, 10 MG/ML (20ML VIAL) NR ONE (23:07)
[2016-04-03] MEDS ORDERED: guaiFENesin/D-METHORPHAN HB 10 ML UNIT-DOSE CUPS PO PRN (23:07)
[2016-04-03] MEDS ORDERED: METOPROLOL TARTRATE 5 MG/5 ML VIAL IVPUSH PRN (23:07)
[2016-04-03] MEDS ORDERED: DOCUSATE SODIUM 100 MG CAPSULE (FP) PO PRN (23:07)
[2016-04-03] MEDS ORDERED: ACETAMINOPHEN 325 MG TABLET (FP) PO PRN (23:07)
[2016-04-03] MEDS ORDERED: ALBUTEROL SO4 2.5/IPRATROPIUM 0.5 INH SOL 3 ML VIAL.NEB. NEB PRN (23:07)
[2016-04-04] MEDS: METOPROLOL TARTRATE 25 MG TABLET (FP) PO SCH ×3 (06:12→22:49)
[2016-04-04 08:23] LABS: CALCIUM 8.3 mg/dL (8.5-10.1)
[2016-04-04 08:25] LABS: CREATININE 0.5 mg/dL (0.55-1.02)
[2016-04-04] MEDS: ALBUTEROL SO4 0.083% IH SOL 2.5 MG/3 ML VIAL.NEB. NEB SCH ×2 (09:32→22:20)
[2016-04-04] MEDS ORDERED: FUROSEMIDE 40 MG TABLET (FP) PO SCH (10:00)
[2016-04-04] MEDS ORDERED: FUROSEMIDE 40 MG/4 ML INJECTABLE VIAL IVPUSH ONE ×2 (10:30→15:00)
[2016-04-04] MEDS ORDERED: LIDOCAINE HCL 2% JELLY (30 ML/TUBE) TP ONE (11:00)
[2016-04-04] MEDS: PANTOPRAZOLE 40 MG TABLET (FP) PO SCH (11:06)
[2016-04-04] MEDS: POLYETHYLENE GLYCOL 3350 119 GM BTL PO SCH ×2 (11:09→23:11)
[2016-04-04] MEDS: BACITRACIN 30 GM TUBE TOPICAL OINTMENT TP SCH (11:09)
--- NOTE | 2016-04-04 11:24 | PN ---
Progress Note (short form) - Note Progress Note: s: confused at baseline (even with translation); with family translation pt denies cp or dizzy but feels sob o: Vital Signs Period Temp Pulse Resp BP Sys/Sanford Pulse Ox Last 24 Hr 97.3 F-97.9 F 77-93 19-22 115-130/58-70 94-96 Constitutional: Yes: No Distress, Calm Eyes: No: Sclera Icterus Cardiovascular: Yes: Regular Rate and Rhythm, no jvd, S1, S2,. No: Gallop, Murmur, Rub Respiratory: Yes: scattered rhonchi; No: Accessory Muscle Use, Rales, Wheezes Gastrointestinal: Yes: Normal Bowel Sounds, Soft. No: Tenderness Extremities: No: Cold Edema: No Integumentary: No: Jaundice diaphoresis Neurological: lethargic but arousable Psychiatric: No: Agitated Current Medications Generic Name Dose Route Start Last Admin Trade Name Freq PRN Reason Stop Dose Admin Acetaminophen 650 mg 04/03/16 23:07 Tylenol - PO Q6H PRN FEVER OR PAIN Albuterol Sulfate 1 amp 04/04/16 10:00 04/04/16 09:32 Ventolin 0.083% Nebulizer Soln - NEB 1 amp BID JUAN Administration Albuterol/Ipratropium 1 amp 04/03/16 23:07 Duoneb - NEB Q6H PRN PAIN Bacitracin 1 applic 04/04/16 10:00 04/04/16 11:09 Bacitracin - TP 1 applic DAILY [facility]UAN Administration Docusate Sodium 100 mg 04/03/16 23:07 Colace - PO Q8H PRN CONSTIPATION Furosemide 40 mg 04/04/16 10:00 Lasix - PO DAILY [facility] Guaifenesin 5 ml 04/03/16 23:07 Robitussin Dm - PO Q6H PRN COUGH Metoprolol Tartrate 37.5 mg 04/04/16 06:00 04/04/16 06:12 Lopressor - PO Not Given TID JUAN Metoprolol Tartrate 5 mg 04/03/16 23:07 Lopressor Injection - IVPUSH Q4H PRN TACHYCARDIA Nystatin/Triamcinolone Acetonide 1 applic 04/04/16 10:00 Mycolog Ii Cream - TP BID [facility]UAN Pantoprazole Sodium 40 mg 04/04/16 10:00 04/04/16 11:06 Protonix - PO 40 mg DAILY [facility]UAN Administration Polyethylene Glycol 17 gm 04/02/16 22:00 04/04/16 11:09 Miralax (For Daily Use) - PO 17 gm BID JUAN Administration Zinc Acetate/Diphenhydramine 1 applic 04/04/16 10:00 04/04/16 11:10 Benadryl 2% Cream TP 1 applic BID JUAN Administration CBC, BMP 04/03/16 08:15 04/04/16 06:20 Repeat chest/abd CT 03/24: Small subpleural infiltrates, rt basilar and lingular infiltrate. Small-mod pleural effusion. small-moderate pericardial effusion. No abdominal pathology. Echo 03/09/16 : mod-sev dec lvef, inf wall hk, nl rv, mild lae, mild mr/tr, moderate pericardial eff, ?impending tamponade based on ra wall collapse Repeat echo 03/12/16: mild con LVH. mod-sev depressed LV sys func (global), 1+ MR/TR, effusion unchanged, still with early diastolic RA collapse. repeat echo 03/21/16: sev dec lvef, nl rv, mild piotr, mild mr, mod-sev tr, rvsp 40-50, trivial pericardial eff, no signs tamponade Echo 04/02/16: Nl lv size/fn. RV not assessed. 1+ MR. MOd TR. Small effusion. a/p: 75 f (she is 83 according to family) with hx htn, h/o [place] x 2, dementia and possible recent diagnosis of cancer (unknown type), here with lethargy, weakness found to have systolic cardiomyopathy and pericardial effusion. pericardial effusion, possible acute pericarditis: -presented with moderate circumferential pericardial eff present but no signs of tamponade. clinically no signs of tamponade as well. -no obvious pericarditis, initially treated empirically with colchicine/ indomethacin but then renal fcn had worsened a little so they have been stopped -hemodynamically stable throughout, with no clinical tamponade -s/p pericardial window 03/16 (diagnostic as well) with 500 cc non-bloody fluid removed. pericardial fluid cultures, cytology pending. -repeat echo shows resolution of eff, but evidence of reaccumulation on 03/24 CT scan with symptoms of nausea. Would not diurese further. - 1/2: hemodynamically stable, bp improving. - 03/27: hemodynamically stable, bp normalized. Volume up today so will diurese. If bp drops, will plan on repeat echo to evaluate effusion. - 03/28-: ct chest was reviewed by cts and she is not felt to have any significant re-accumulation of pericardial eff. remains hemodynamically stable -04/02-: Repeat echo with nl lv function. Minimal reaccumulation of pericardial effusion since drain (small), bp stable syst chf: -echo here shows mod-sev decreased lvef with inferior hypokinesis, patient with h/o prior [place]--followed by doctors in [place] where she lives, per dtr (here visiting) -cont bb, bp too low for marian-i -no angina or other signs acs, ce's negx3, ecg w/o ischemic changes or significant q waves -03/12: clinically no definite chf, exam equiovocal for JVD--monitor closely with IVF. - 03/13: Now off IVF. CXR with new rt pleural effusion. No change in effusion size or hemodynamics with IVF. gentle diuresis as mentioned above. Strict I/O' s, daily weights. -03/14-: no signs chf on exam/cxr. cont to hold lasix and ivfs for now -will defer ? of need for ischemia eval to [facility] doctors (dtr states pt plans to return as soon as medically stable)--? LV dysfxn is chronic and stable -low dose BB trial as doing. ACEI trial (2.5 mg) given 03/19 but dropped blood pressures. -03/20: Bp trending down s/p lasix and lisinopril yesterday evening. will hold dose this morning. Consider resuming again tomorrow if bp remains stable. WBC rising and cough worsening. Would repeat chest CT. -03/21: still with some chf on imaging and pericardial effusion improved (small on ct chest) so will give iv lasix dose today to help with congestion. -03/22: still with some chf on cxr so agree with 40 iv lasix dose today to help with congestion. -03/23-03/24: developing signs of infection (possible multifocal pna), poor po intake. Holding diuretics. Maintenance fluids today 03/24. Continue daily weights. -03/25-1/2: BP improved signifcantly on antibiotics. Con't to hold diuresis. - 03/27: Volume up today, will give trial dose of lasix 20 mg IV x 1. -03/28: cont prn lasix for now, avoid excess ivfs -03/29-: cont low dose maintenance lasix 20 po qd -04/02: JVD to neck--rpt limited echo today to r/o hemodynamically-signif peric effusion, as above; lasix 20 IVP x 1 today--may need more diuresis depending on bp response after test dose (i.e. no hypotension) and echo findings --> stable bp after IV lasix - 04/03. weight down today. PO dose uptitrated to 40 mg/day for tomorrow. Revaluate tomorrow for need for further IV lasix. - 04/04: having more sob today, will give iv lasix again today instead of po, resume po lasix 40 tomorrow svt/PAT: -has had periodically during admit here. no obvious afib, now off tele -cont bb leukocytosis: -unclear etiology, being followed by ID lethargy/weakness: -head ct w/o acute findings. likely 2/2 to aforementioned acute illnesses. -PT htn: - cont bb. elevated trop: -trop borderline elevated (peak 0.28) the day after episode of prolonged SVT/ fever. Nl ck, no ischemic changes on ecgs. likely due to demand ischemia from svt in setting of known CAD. Troponin trended down. No signs of acs presently malignancy: -imaging at OSH shows lytic lesions in spine, HCP declines eval, wants her to go back home to [place]
--- NOTE | 2016-04-04 12:03 | PN ---
Physical Exam: SUBJECTIVE: Patient seen and examined OBJECTIVE: Vital Signs Period Temp Pulse Resp BP Sys/Sanford Pulse Ox Last 24 Hr 97.3 F-97.9 F 77-93 19-22 115-130/58-70 94-96 GENERAL: The patient is awake, alert. Weak. Frail. HEAD: Surgical angelica removed. EYES: PERRL, sclera anicteric, conjunctiva clear. No ptosis. LUNGS: Diffuse crackles, inspiratory wheezing anterior upper lobes HEART: Regular rate and rhythm, S1, S2 ABDOMEN: Diffuse abdominal tenderness EXTREMITIES: 2+ pulses, warm, well-perfused, no edema. 4cm tumorous growth RLE. NEUROLOGICAL: Cranial nerves II through XII grossly intact. Laboratory Results - last 24 hr 04/04/16 06:20 Sodium 137 Potassium 4.9 Chloride 98 Carbon Dioxide 31 Anion Gap 8 BUN 14 Creatinine 0.5 L Random Glucose 130 H Calcium 8.3 L CBCD WBC 10.8 K/mm3 (4.0-10.0) H 04/03/16 08:15 RBC 3.72 M/mm3 (3.60-5.2) 04/03/16 08:15 Hgb 11.2 GM/dL (10.7-15.3) 04/03/16 08:15 Hct 34.6 % (32.4-45.2) 04/03/16 08:15 MCV 93.2 fl (80-96) 04/03/16 08:15 MCHC 32.3 g/dl (32.0-36.0) 04/03/16 08:15 RDW 17.9 % (11.6-15.6) H 04/03/16 08:15 Plt Count 286 K/MM3 (134-434) 04/03/16 08:15 MPV 9.3 fl (7.5-11.1) 04/03/16 08:15 CMP Sodium 137 mmol/L (136-145) 04/04/16 06:20 Potassium 4.9 mmol/L (3.5-5.1) 04/04/16 06:20 Chloride 98 mmol/L (98-107) 04/04/16 06:20 Carbon Dioxide 31 mmol/L (21-32) 04/04/16 06:20 Anion Gap 8 (8-16) 04/04/16 06:20 BUN 14 mg/dL (7-18) 04/04/16 06:20 Creatinine 0.5 mg/dL (0.55-1.02) L 04/04/16 06:20 Creat Clearance w eGFR > 60 (>60) 04/03/16 08:15 Calcium 8.3 mg/dL (8.5-10.1) L 04/04/16 06:20 Total Bilirubin 0.3 mg/dL (0.2-1.0) D 04/03/16 08:15 AST 15 U/L (15-37) 04/03/16 08:15 ALT 26 U/L (12-78) 04/03/16 08:15 Alkaline Phosphatase 104 U/L (45-117) 04/03/16 08:15 Total Protein 6.5 g/dl (6.4-8.2) 04/03/16 08:15 Albumin 2.2 g/dl (3.4-5.0) L 04/03/16 08:15 Current Medications Generic Name Dose Route Start Last Admin Trade Name Freq PRN Reason Stop Dose Admin Acetaminophen 650 mg 04/03/16 23:07 Tylenol - PO Q6H PRN FEVER OR PAIN Albuterol Sulfate 1 amp 04/04/16 10:00 04/04/16 09:32 Ventolin 0.083% Nebulizer Soln - NEB 1 amp BID JUAN Administration Albuterol/Ipratropium 1 amp 04/03/16 23:07 Duoneb - NEB Q6H PRN PAIN Bacitracin 1 applic 04/04/16 10:00 04/04/16 11:09 Bacitracin - TP 1 applic DAILY JUAN Administration Docusate Sodium 100 mg 04/03/16 23:07 Colace - PO Q8H PRN CONSTIPATION Furosemide 40 mg 04/04/16 10:00 Lasix - PO DAILY [facility] Guaifenesin 5 ml 04/03/16 23:07 Robitussin Dm - PO Q6H PRN COUGH Metoprolol Tartrate 37.5 mg 04/04/16 06:00 04/04/16 06:12 Lopressor - PO Not Given TID JUAN Metoprolol Tartrate 5 mg 04/03/16 23:07 Lopressor Injection - IVPUSH Q4H PRN TACHYCARDIA Nystatin/Triamcinolone Acetonide 1 applic 04/04/16 10:00 Mycolog Ii Cream - TP BID JUAN Pantoprazole Sodium 40 mg 04/04/16 10:00 04/04/16 11:06 Protonix - PO 40 mg DAILY JUAN Administration Polyethylene Glycol 17 gm 04/02/16 22:00 04/04/16 11:09 Miralax (For Daily Use) - PO 17 gm BID JUAN Administration Zinc Acetate/Diphenhydramine 1 applic 04/04/16 10:00 04/04/16 11:10 Benadryl 2% Cream TP 1 applic BID JUAN Administration ASSESSMENT/PLAN: This is hospital day #26 for this 75 year-old female with PMH of HTN, DC x2, pericardial effusion s/p pericardial window on 03/15. Prolonged hopsital course. Moderate pericardial effusion s/p pericardial window --04/02 Echo: small, loculated pericardial effusion, smaller than previous, no signs of tamponade Severe systolic heart failure --increased wheezing and SOB today, CXR shows continued moderate pleural effusions --increase lasix today to 40 IVP --tomorrow start 40 PO BID Pulmonary congestion --diuresis as above SVT/PAT --no recent episodes --can d/c telemetry Severe sepsis, resolved Multilobar pneumonia, resolved --WBC trending down, afebrile --hemodynamically stable --completed Zosyn x 7 days --cultures negative to date --continue to observe off antibiotics --ID following Lactic acidosis, resolved Cholilithiasis --gallbladder full of stones, US and CT imaging show no sign of cholecystitis Abdominal pain likely constipation --has had several large, soft BMs, feels better --continue bowel regimen Elevated troponins --flat trending --likely secondary to infectious process/demand ischemia Soft tissue facial injuries s/p mechanical fall, resolved Occipital laceration --surgical angelica removed r/o malignancy --imaging [facility] showed lytic lesions throughout the calvarium and the cervical spine; also with tumorous growth on RLE --no further workup per HCP Abdominal rash, resolved F/E/N Fluids: PO intake adequate Electrolyes: replete as indicated Nutrition: low sodium DVT prophylaxis: lovenox Dispo: Discharge planning ongoing. Difficult because patient is from [place], became ill during a visit to [place], and has very limited emergency travel health insurance. SW working on O2, walker, wheelchair, etc. DNR/DNI. Visit type - Emergency Visit Emergency Visit: Yes ED Registration Date: 03/09/16 Care time: The patient presented to the Emergency Department on the above date and was hospitalized for further evaluation of their emergent condition. - New Patient This patient is new to me today: No - Critical Care Critical Care patient: No
--- NOTE | 2016-04-04 13:29 | PN ---
Progress Note, Physician History of Present Illness: Pt seen and examined at bedside. She complains of increase shortness of breath today. - Current Medication List Current Medications: Active Medications Acetaminophen (Tylenol -) 650 mg PO Q6H PRN PRN Reason: FEVER OR PAIN Albuterol Sulfate (Ventolin 0.083% Nebulizer Soln -) 1 amp NEB BID [facility] Last Admin: 04/04/16 09:32 Dose: 1 amp Albuterol/Ipratropium (Duoneb -) 1 amp NEB Q6H PRN PRN Reason: PAIN Bacitracin (Bacitracin -) 1 applic TP DAILY [facility] Last Admin: 04/04/16 11:09 Dose: 1 applic Docusate Sodium (Colace -) 100 mg PO Q8H PRN PRN Reason: CONSTIPATION Furosemide (Lasix Injection -) 20 mg IVPUSH ONCE ONE Stop: 04/04/16 15:01 Furosemide (Lasix -) 40 mg PO BID@0600,1400 [facility] Guaifenesin (Robitussin Dm -) 5 ml PO Q6H PRN PRN Reason: COUGH Metoprolol Tartrate (Lopressor -) 37.5 mg PO TID [facility] Last Admin: 04/04/16 06:12 Dose: Not Given Metoprolol Tartrate (Lopressor Injection -) 5 mg IVPUSH Q4H PRN PRN Reason: TACHYCARDIA Nystatin/Triamcinolone Acetonide (Mycolog Ii Cream -) 1 applic TP BID [facility] Pantoprazole Sodium (Protonix -) 40 mg PO DAILY [facility] Last Admin: 04/04/16 11:06 Dose: 40 mg Polyethylene Glycol (Miralax (For Daily Use) -) 17 gm PO BID [facility] Last Admin: 04/04/16 11:09 Dose: 17 gm Zinc Acetate/Diphenhydramine (Benadryl 2% Cream) 1 applic TP BID [facility] Last Admin: 04/04/16 11:10 Dose: 1 applic - Objective Vital Signs: Vital Signs Temperature 97.7 F 04/03/16 21:26 Pulse Rate 89 04/04/16 09:32 Respiratory Rate 22 04/03/16 21:26 Blood Pressure 130/65 04/03/16 21:26 O2 Sat by Pulse Oximetry (%) 96 04/04/16 09:32 Constitutional: Yes: Calm Eyes: Yes: Conjunctiva Clear HENT: Yes: Atraumatic Cardiovascular: Yes: JVD, S1, S2 Respiratory: Yes: On Nasal O2 Gastrointestinal: Yes: Soft Genitourinary: Yes: WNL Edema: No Neurological: Yes: Oriented Psychiatric: Yes: Oriented Labs: CBC, BMP 04/03/16 08:15 04/04/16 06:20 INR, PTT INR 1.43 (0.82-1.09) H 03/29/16 09:30 Problem List - Problems (1) Hypoxia Code(s): R09.02 - HYPOXEMIA (2) Lethargy Code(s): R53.83 - OTHER FATIGUE (3) Pericardial effusion Code(s): I31.3 - PERICARDIAL EFFUSION (NONINFLAMMATORY) (4) Proteinuria Code(s): R80.9 - PROTEINURIA, UNSPECIFIED (5) Hypertension Code(s): I10 - ESSENTIAL (PRIMARY) HYPERTENSION (6) Skin cancer Code(s): C44.90 - UNSPECIFIED MALIGNANT NEOPLASM OF SKIN, UNSPECIFIED Assessment/Plan Current Medications Generic Name Dose Route Start Last Admin Trade Name Freq PRN Reason Stop Dose Admin Acetaminophen 650 mg 04/03/16 23:07 Tylenol - PO Q6H PRN FEVER OR PAIN Albuterol Sulfate 1 amp 04/04/16 10:00 04/04/16 09:32 Ventolin 0.083% Nebulizer Soln - NEB 1 amp BID JUAN Administration Albuterol/Ipratropium 1 amp 04/03/16 23:07 Duoneb - NEB Q6H PRN PAIN Bacitracin 1 applic 04/04/16 10:00 04/04/16 11:09 Bacitracin - TP 1 applic DAILY JUAN Administration Docusate Sodium 100 mg 04/03/16 23:07 Colace - PO Q8H PRN CONSTIPATION Furosemide 20 mg 04/04/16 15:00 Lasix Injection - IVPUSH 04/04/16 15:01 ONCE ONE Furosemide 40 mg 04/05/16 06:00 Lasix - PO BID@0600,1400 JUAN Guaifenesin 5 ml 04/03/16 23:07 Robitussin Dm - PO Q6H PRN COUGH Metoprolol Tartrate 37.5 mg 04/04/16 06:00 04/04/16 06:12 Lopressor - PO Not Given TID JUAN Metoprolol Tartrate 5 mg 04/03/16 23:07 Lopressor Injection - IVPUSH Q4H PRN TACHYCARDIA Nystatin/Triamcinolone Acetonide 1 applic 04/04/16 10:00 Mycolog Ii Cream - TP BID JUAN Pantoprazole Sodium 40 mg 04/04/16 10:00 04/04/16 11:06 Protonix - PO 40 mg DAILY JUAN Administration Polyethylene Glycol 17 gm 04/02/16 22:00 04/04/16 11:09 Miralax (For Daily Use) - PO 17 gm BID JUAN Administration Zinc Acetate/Diphenhydramine 1 applic 04/04/16 10:00 04/04/16 11:10 Benadryl 2% Cream TP 1 applic BID JUAN Administration Impression 1. pericardial effusion 2. hypoxia 3. proteinuria 4. HTN 5. skin cancer 6. congestion on cxr 7. s/p fall and laceration to head 8. hyperkalemia 9. azotemia Plan - cont with lasix - monitor lytes and potassium - cardio input appreciated - case discussed with pts daughter - cont with pt/rehab - will follow PRN - cont current management Dr Ruth
--- NOTE | 2016-04-04 14:46 | PN ---
Progress Note (short form) - Note Progress Note: PULMONARY VSS/AFEBRILE ANICTERIC SCATTERED BIBASILAR BREATH SOUNDS S1S2 BS+ NO EDEMA LABS/MEDS/NOTES/IMAGING/MICRO REVIEWED Pericardial Effusion s/p Pericardial Window LV Systolic Dysfunction Hypoxia resolved HTN Dementia No neoplasm noted on cytology/bx - IV fluid support - monitor urine output, creatinine - incentive spirometry - DVT prophylaxis - Supportive measures - Goals of care Joselito KIMBALL MD
--- NOTE | 2016-04-04 16:47 | PN ---
Progress Note, Physician History of Present Illness: stable no issues - Current Medication List Current Medications: Active Medications Acetaminophen (Tylenol -) 650 mg PO Q6H PRN PRN Reason: FEVER OR PAIN Albuterol Sulfate (Ventolin 0.083% Nebulizer Soln -) 1 amp NEB BID [facility] Last Admin: 04/04/16 09:32 Dose: 1 amp Albuterol/Ipratropium (Duoneb -) 1 amp NEB Q6H PRN PRN Reason: PAIN Bacitracin (Bacitracin -) 1 applic TP DAILY [facility] Last Admin: 04/04/16 11:09 Dose: 1 applic Docusate Sodium (Colace -) 100 mg PO Q8H PRN PRN Reason: CONSTIPATION Furosemide (Lasix -) 40 mg PO BID@0600,1400 [facility] Guaifenesin (Robitussin Dm -) 5 ml PO Q6H PRN PRN Reason: COUGH Metoprolol Tartrate (Lopressor -) 37.5 mg PO TID [facility] Last Admin: 04/04/16 15:14 Dose: 37.5 mg Metoprolol Tartrate (Lopressor Injection -) 5 mg IVPUSH Q4H PRN PRN Reason: TACHYCARDIA Nystatin/Triamcinolone Acetonide (Mycolog Ii Cream -) 1 applic TP BID [facility] Pantoprazole Sodium (Protonix -) 40 mg PO DAILY [facility] Last Admin: 04/04/16 11:06 Dose: 40 mg Polyethylene Glycol (Miralax (For Daily Use) -) 17 gm PO BID [facility] Last Admin: 04/04/16 11:09 Dose: 17 gm Zinc Acetate/Diphenhydramine (Benadryl 2% Cream) 1 applic TP BID [facility] Last Admin: 04/04/16 11:10 Dose: 1 applic - Objective Vital Signs: Vital Signs Temperature 98.0 F 04/04/16 15:06 Pulse Rate 100 H 04/04/16 15:06 Respiratory Rate 18 04/04/16 15:06 Blood Pressure 119/65 04/04/16 15:06 O2 Sat by Pulse Oximetry (%) 96 04/04/16 09:32 Constitutional: Yes: No Distress, Calm Cardiovascular: Yes: Regular Rate and Rhythm Respiratory: Yes: Regular, Other (crackles) Gastrointestinal: Yes: Normal Bowel Sounds, Soft Musculoskeletal: Yes: WNL Extremities: Yes: WNL Neurological: Yes: Alert, Oriented Psychiatric: Yes: Alert Labs: CBC, BMP 04/03/16 08:15 04/04/16 06:20 INR, PTT INR 1.43 (0.82-1.09) H 03/29/16 09:30 Assessment/Plan Problem List - Problems (1) Hypoxia Code(s): R09.02 - HYPOXEMIA (2) Lethargy Code(s): R53.83 - OTHER FATIGUE (3) Pericardial effusion Code(s): I31.3 - PERICARDIAL EFFUSION (NONINFLAMMATORY) (4) Proteinuria Code(s): R80.9 - PROTEINURIA, UNSPECIFIED (5) Hypertension Code(s): I10 - ESSENTIAL (PRIMARY) HYPERTENSION (6) Skin cancer Code(s): C44.90 - UNSPECIFIED MALIGNANT NEOPLASM OF SKIN, UNSPECIFIED abd pain cough plan continue following rest as per primary
[2016-04-04] MEDS ORDERED: ALPRAZolam 0.25 MG TABLET PO STA (18:18)
[2016-04-04] MEDS: NYSTATIN/TRIAMCINOLONE TOPICAL CREAM 15 GM TUBE TP SCH (23:10)
[2016-04-04] MEDS: MUPIROCIN 2% TOPICAL OINTMENT 22 GM TUBE TP SCH (23:11)
[2016-04-05] MEDS: METOPROLOL TARTRATE 25 MG TABLET (FP) PO SCH ×3 (05:53→22:50)
[2016-04-05] MEDS: FUROSEMIDE 40 MG TABLET (FP) PO SCH ×2 (05:53→15:11)
[2016-04-05] MEDS ORDERED: FUROSEMIDE 40 MG TABLET (FP) PO SCH (06:00)
[2016-04-05 07:38] LABS: BASOPHIL 0.7 % (0-2.0); EOSINOPHIL 1.7 % (0-4.5); MCHC 32.4 g/dl (32.0-36.0); MEAN CELL VOLUME 92.8 fl (80-96); MEAN PLT VOLUME 9.4 fl (7.5-11.1); NEUTROPHILS 77.8 % (42.8-82.8); PLATELET COUNT 277 K/MM3 (134-434); RDW 17.3 % (11.6-15.6); WHITE BLOOD COUNT 12.5 K/mm3 (4.0-10.0)
[2016-04-05 08:15] LABS: ALBUMIN 2.1 g/dl (3.4-5.0); ANION GAP 8 (8-16); BILIRUBIN,TOTAL 0.5 mg/dL (0.2-1.0); CALCIUM 8.4 mg/dL (8.5-10.1); CO2 32 mmol/L (21-32); CREATININE 0.7 mg/dL (0.55-1.02); GLUCOSE,RANDOM 121 mg/dL (74-106); MAGNESIUM 2.1 mg/dL (1.8-2.4); SGOT/AST 18 U/L (15-37); SGPT/ALT 20 U/L (12-78); TOT PROT 5.9 g/dl (6.4-8.2)
[2016-04-05 08:16] LABS: ALK PHOS 93 U/L (45-117)
[2016-04-05] MEDS: ALBUTEROL SO4 0.083% IH SOL 2.5 MG/3 ML VIAL.NEB. NEB SCH ×2 (10:20→22:00)
--- NOTE | 2016-04-05 10:28 | PN ---
Progress Note (short form) - Note Progress Note: s: confused, no overnight events, appears comfortable o: Vital Signs Period Temp Pulse Resp BP Sys/Sanford Pulse Ox Last 24 Hr 97.8 F-99.0 F 90-100 18-22 99-139/49-76 96 Constitutional: Yes: No Distress, Calm Eyes: No: Sclera Icterus Cardiovascular: Yes: Regular Rate and Rhythm, no jvd, S1, S2,. No: Gallop, Murmur, Rub Respiratory: Yes: scattered rhonchi; No: Accessory Muscle Use, Rales, Wheezes Gastrointestinal: Yes: Normal Bowel Sounds, Soft. No: Tenderness Extremities: No: Cold Edema: No Integumentary: No: Jaundice diaphoresis Neurological: lethargic but arousable Psychiatric: No: Agitated Current Medications Generic Name Dose Route Start Last Admin Trade Name Freq PRN Reason Stop Dose Admin Acetaminophen 650 mg 04/03/16 23:07 Tylenol - PO Q6H PRN FEVER OR PAIN Albuterol Sulfate 1 amp 04/04/16 10:00 04/04/16 22:20 Ventolin 0.083% Nebulizer Soln - NEB Not Given BID JUAN Albuterol/Ipratropium 1 amp 04/03/16 23:07 Duoneb - NEB Q6H PRN PAIN Bacitracin 1 applic 04/04/16 10:00 04/04/16 11:09 Bacitracin - TP 1 applic DAILY JUAN Administration Docusate Sodium 100 mg 04/03/16 23:07 Colace - PO Q8H PRN CONSTIPATION Furosemide 40 mg 04/05/16 06:00 04/05/16 05:53 Lasix - PO 40 mg BID@0600,1400 JUAN Administration Guaifenesin 5 ml 04/03/16 23:07 Robitussin Dm - PO Q6H PRN COUGH Metoprolol Tartrate 37.5 mg 04/04/16 06:00 04/05/16 05:53 Lopressor - PO 37.5 mg TID JUAN Administration Metoprolol Tartrate 5 mg 04/03/16 23:07 Lopressor Injection - IVPUSH Q4H PRN TACHYCARDIA Mupirocin 1 applic 04/04/16 22:00 04/04/16 23:11 Bactroban 2% Ointment - TP 1 applic BID JUAN Administration Nystatin/Triamcinolone Acetonide 1 applic 04/04/16 10:00 04/04/16 23:10 Mycolog Ii Cream - TP 1 applic BID JUAN Administration Pantoprazole Sodium 40 mg 04/04/16 10:00 04/04/16 11:06 Protonix - PO 40 mg DAILY JUAN Administration Polyethylene Glycol 17 gm 04/02/16 22:00 04/04/16 23:11 Miralax (For Daily Use) - PO 17 gm BID JUAN Administration Zinc Acetate/Diphenhydramine 1 applic 04/04/16 10:00 04/04/16 23:11 Benadryl 2% Cream TP 1 applic BID JUAN Administration CBC, BMP 04/05/16 06:45 04/05/16 06:45 Repeat chest/abd CT 03/24: Small subpleural infiltrates, rt basilar and lingular infiltrate. Small-mod pleural effusion. small-moderate pericardial effusion. No abdominal pathology. Echo 03/09/16 : mod-sev dec lvef, inf wall hk, nl rv, mild lae, mild mr/tr, moderate pericardial eff, ?impending tamponade based on ra wall collapse Repeat echo 03/12/16: mild con LVH. mod-sev depressed LV sys func (global), 1+ MR/TR, effusion unchanged, still with early diastolic RA collapse. repeat echo 03/21/16: sev dec lvef, nl rv, mild piotr, mild mr, mod-sev tr, rvsp 40-50, trivial pericardial eff, no signs tamponade Echo 04/02/16: Nl lv size/fn. RV not assessed. 1+ MR. MOd TR. Small effusion. a/p: 75 f (she is 83 according to family) with hx htn, h/o [place] x 2, dementia and possible recent diagnosis of cancer (unknown type), here with lethargy, weakness found to have systolic cardiomyopathy and pericardial effusion. pericardial effusion, possible acute pericarditis: -presented with moderate circumferential pericardial eff present but no signs of tamponade. clinically no signs of tamponade as well. -no obvious pericarditis, initially treated empirically with colchicine/ indomethacin but then renal fcn had worsened a little so they have been stopped -hemodynamically stable throughout, with no clinical tamponade -s/p pericardial window 03/16 (diagnostic as well) with 500 cc non-bloody fluid removed. pericardial fluid cultures, cytology pending. -repeat echo shows resolution of eff, but evidence of reaccumulation on 03/24 CT scan with symptoms of nausea. Would not diurese further. - 03/26: hemodynamically stable, bp improving. - 03/27: hemodynamically stable, bp normalized. Volume up today so will diurese. If bp drops, will plan on repeat echo to evaluate effusion. - 03/28-: ct chest was reviewed by cts and she is not felt to have any significant re-accumulation of pericardial eff. remains hemodynamically stable -04/02-: Repeat echo with nl lv function. Minimal reaccumulation of pericardial effusion since drain (small), bp stable syst chf: -echo here shows mod-sev decreased lvef with inferior hypokinesis, patient with h/o prior [place]--followed by doctors in [place] where she lives, per dtr (here visiting) -cont bb, bp too low for marian-i -no angina or other signs acs, ce's negx3, ecg w/o ischemic changes or significant q waves -03/12: clinically no definite chf, exam equiovocal for JVD--monitor closely with IVF. - 03/13: Now off IVF. CXR with new rt pleural effusion. No change in effusion size or hemodynamics with IVF. gentle diuresis as mentioned above. Strict I/O' s, daily weights. -03/14-: no signs chf on exam/cxr. cont to hold lasix and ivfs for now -will defer ? of need for ischemia eval to [facility] doctors (dtr states pt plans to return as soon as medically stable)--? LV dysfxn is chronic and stable -low dose BB trial as doing. ACEI trial (2.5 mg) given 03/19 but dropped blood pressures. -03/20: Bp trending down s/p lasix and lisinopril yesterday evening. will hold dose this morning. Consider resuming again tomorrow if bp remains stable. WBC rising and cough worsening. Would repeat chest CT. -03/21: still with some chf on imaging and pericardial effusion improved (small on ct chest) so will give iv lasix dose today to help with congestion. -03/22: still with some chf on cxr so agree with 40 iv lasix dose today to help with congestion. -03/23-03/24: developing signs of infection (possible multifocal pna), poor po intake. Holding diuretics. Maintenance fluids today 03/24. Continue daily weights. -03/25-03/26: BP improved signifcantly on antibiotics. Con't to hold diuresis. - 03/27: Volume up today, will give trial dose of lasix 20 mg IV x 1. -03/28: cont prn lasix for now, avoid excess ivfs -03/29-: cont low dose maintenance lasix 20 po qd -04/02: JVD to neck--rpt limited echo today to r/o hemodynamically-signif peric effusion, as above; lasix 20 IVP x 1 today--may need more diuresis depending on bp response after test dose (i.e. no hypotension) and echo findings --> stable bp after IV lasix - 04/03. weight down today. PO dose uptitrated to 40 mg/day for tomorrow. Revaluate tomorrow for need for further IV lasix. - 04/04: having more sob today, will give iv lasix again today instead of po, resume po lasix 40 tomorrow - 04/05: cont po lasix at increased dose of 40 bid svt/PAT: -has had periodically during admit here. no obvious afib, now off tele -cont bb leukocytosis: -unclear etiology, being followed by ID lethargy/weakness: -head ct w/o acute findings. likely 2/2 to aforementioned acute illnesses. -PT htn: - cont bb. elevated trop: -trop borderline elevated (peak 0.28) the day after episode of prolonged SVT/ fever. Nl ck, no ischemic changes on ecgs. likely due to demand ischemia from svt in setting of known CAD. Troponin trended down. No signs of acs presently malignancy: -imaging at OSH shows lytic lesions in spine, HCP declines eval, wants her to go back home to [place]
[2016-04-05] MEDS: PANTOPRAZOLE 40 MG TABLET (FP) PO SCH (10:31)
[2016-04-05] MEDS: POLYETHYLENE GLYCOL 3350 119 GM BTL PO SCH ×2 (10:31→22:50)
[2016-04-05] MEDS: BACITRACIN 30 GM TUBE TOPICAL OINTMENT TP SCH (10:32)
[2016-04-05] MEDS: MUPIROCIN 2% TOPICAL OINTMENT 22 GM TUBE TP SCH ×2 (10:33→22:48)
[2016-04-05] MEDS: NYSTATIN/TRIAMCINOLONE TOPICAL CREAM 15 GM TUBE TP SCH ×2 (10:34→22:47)
--- NOTE | 2016-04-05 13:02 | PN ---
Progress Note (short form) - Note Progress Note: PULMONARY Appears comfortable. No fevers. CXR with increasing congestion. Last Vital Signs Temp Pulse Resp BP Pulse Ox 99.0 F 94 H 20 100/49 96 04/05/16 06:00 04/05/16 05:47 04/05/16 05:47 04/05/16 05:47 04/04/16 21:00 Gen: mildly tachypneic at rest Heart: tachycardic, regular Lung: scattered rhonchi Abd: soft, nontender Ext: no edema CBC, BMP 04/05/16 06:45 04/05/16 06:45 Active Medications Acetaminophen (Tylenol -) 650 mg PO Q6H PRN PRN Reason: FEVER OR PAIN Albuterol Sulfate (Ventolin 0.083% Nebulizer Soln -) 1 amp NEB BID [facility] Last Admin: 04/05/16 10:20 Dose: 1 amp Albuterol/Ipratropium (Duoneb -) 1 amp NEB Q6H PRN PRN Reason: PAIN Bacitracin (Bacitracin -) 1 applic TP DAILY [facility] Last Admin: 04/05/16 10:32 Dose: 1 applic Docusate Sodium (Colace -) 100 mg PO Q8H PRN PRN Reason: CONSTIPATION Furosemide (Lasix -) 40 mg PO BID@0600,1400 [facility] Last Admin: 04/05/16 05:53 Dose: 40 mg Guaifenesin (Robitussin Dm -) 5 ml PO Q6H PRN PRN Reason: COUGH Metoprolol Tartrate (Lopressor -) 37.5 mg PO TID [facility] Last Admin: 04/05/16 05:53 Dose: 37.5 mg Metoprolol Tartrate (Lopressor Injection -) 5 mg IVPUSH Q4H PRN PRN Reason: TACHYCARDIA Mupirocin (Bactroban 2% Ointment -) 1 applic TP BID [facility] Last Admin: 04/05/16 10:33 Dose: 1 applic Nystatin/Triamcinolone Acetonide (Mycolog Ii Cream -) 1 applic TP BID [facility] Last Admin: 04/05/16 10:34 Dose: 1 applic Pantoprazole Sodium (Protonix -) 40 mg PO DAILY [facility] Last Admin: 04/05/16 10:31 Dose: 40 mg Polyethylene Glycol (Miralax (For Daily Use) -) 17 gm PO BID [facility] Last Admin: 04/05/16 10:31 Dose: 17 gm Zinc Acetate/Diphenhydramine (Benadryl 2% Cream) 1 applic TP BID [facility] Last Admin: 04/05/16 10:33 Dose: 1 applic A/P Paroxysmal Atrial Fibrillation now in sinus Pericardial Effusion Early Cardiac Tamponade s/p Pericardial Window [place] on Chronic LV Systolic Dysfunction Hypoxia resolved HTN Dementia r/o Malignancy - rate controlled on lopressor - anticoagulation if no contraindications - antibiotics per ID - lasix today - monitor urine output, creatinine - incentive spirometry - DVT prophylaxis - continue discussions regarding goals of care
--- NOTE | 2016-04-05 13:13 | PN ---
Progress Note, Physician History of Present Illness: Pt seen and examined at bedside. She is tolerating the lasix. - Current Medication List Current Medications: Active Medications Acetaminophen (Tylenol -) 650 mg PO Q6H PRN PRN Reason: FEVER OR PAIN Albuterol Sulfate (Ventolin 0.083% Nebulizer Soln -) 1 amp NEB BID [facility] Last Admin: 04/05/16 10:20 Dose: 1 amp Albuterol/Ipratropium (Duoneb -) 1 amp NEB Q6H PRN PRN Reason: PAIN Bacitracin (Bacitracin -) 1 applic TP DAILY [facility] Last Admin: 04/05/16 10:32 Dose: 1 applic Docusate Sodium (Colace -) 100 mg PO Q8H PRN PRN Reason: CONSTIPATION Furosemide (Lasix -) 40 mg PO BID@0600,1400 [facility] Last Admin: 04/05/16 05:53 Dose: 40 mg Guaifenesin (Robitussin Dm -) 5 ml PO Q6H PRN PRN Reason: COUGH Metoprolol Tartrate (Lopressor -) 37.5 mg PO TID [facility] Last Admin: 04/05/16 05:53 Dose: 37.5 mg Metoprolol Tartrate (Lopressor Injection -) 5 mg IVPUSH Q4H PRN PRN Reason: TACHYCARDIA Mupirocin (Bactroban 2% Ointment -) 1 applic TP BID [facility] Last Admin: 04/05/16 10:33 Dose: 1 applic Nystatin/Triamcinolone Acetonide (Mycolog Ii Cream -) 1 applic TP BID [facility] Last Admin: 04/05/16 10:34 Dose: 1 applic Pantoprazole Sodium (Protonix -) 40 mg PO DAILY [facility] Last Admin: 04/05/16 10:31 Dose: 40 mg Polyethylene Glycol (Miralax (For Daily Use) -) 17 gm PO BID [facility] Last Admin: 04/05/16 10:31 Dose: 17 gm Zinc Acetate/Diphenhydramine (Benadryl 2% Cream) 1 applic TP BID [facility] Last Admin: 04/05/16 10:33 Dose: 1 applic - Objective Vital Signs: Vital Signs Temperature 99.0 F 04/05/16 06:00 Pulse Rate 94 H 04/05/16 05:47 Respiratory Rate 20 04/05/16 05:47 Blood Pressure 100/49 04/05/16 05:47 O2 Sat by Pulse Oximetry (%) 96 04/04/16 21:00 Constitutional: Yes: Calm Eyes: Yes: Conjunctiva Clear Cardiovascular: Yes: S1, S2 Respiratory: Yes: CTA Bilaterally Gastrointestinal: Yes: Soft Genitourinary: Yes: WNL Musculoskeletal: Yes: WNL Edema: No Neurological: Yes: Oriented Labs: CBC, BMP 04/05/16 06:45 04/05/16 06:45 INR, PTT INR 1.43 (0.82-1.09) H 03/29/16 09:30 Problem List - Problems (1) Hypoxia Code(s): R09.02 - HYPOXEMIA (2) Lethargy Code(s): R53.83 - OTHER FATIGUE (3) Pericardial effusion Code(s): I31.3 - PERICARDIAL EFFUSION (NONINFLAMMATORY) (4) Proteinuria Code(s): R80.9 - PROTEINURIA, UNSPECIFIED (5) Hypertension Code(s): I10 - ESSENTIAL (PRIMARY) HYPERTENSION (6) Skin cancer Code(s): C44.90 - UNSPECIFIED MALIGNANT NEOPLASM OF SKIN, UNSPECIFIED Assessment/Plan Current Medications Generic Name Dose Route Start Last Admin Trade Name Freq PRN Reason Stop Dose Admin Acetaminophen 650 mg 04/03/16 23:07 Tylenol - PO Q6H PRN FEVER OR PAIN Albuterol Sulfate 1 amp 04/04/16 10:00 04/05/16 10:20 Ventolin 0.083% Nebulizer Soln - NEB 1 amp BID JUAN Administration Albuterol/Ipratropium 1 amp 04/03/16 23:07 Duoneb - NEB Q6H PRN PAIN Bacitracin 1 applic 04/04/16 10:00 04/05/16 10:32 Bacitracin - TP 1 applic DAILY JUAN Administration Docusate Sodium 100 mg 04/03/16 23:07 Colace - PO Q8H PRN CONSTIPATION Furosemide 40 mg 04/05/16 06:00 04/05/16 05:53 Lasix - PO 40 mg BID@0600,1400 JUAN Administration Guaifenesin 5 ml 04/03/16 23:07 Robitussin Dm - PO Q6H PRN COUGH Metoprolol Tartrate 37.5 mg 04/04/16 06:00 04/05/16 05:53 Lopressor - PO 37.5 mg TID JUAN Administration Metoprolol Tartrate 5 mg 04/03/16 23:07 Lopressor Injection - IVPUSH Q4H PRN TACHYCARDIA Mupirocin 1 applic 04/04/16 22:00 04/05/16 10:33 Bactroban 2% Ointment - TP 1 applic BID JUAN Administration Nystatin/Triamcinolone Acetonide 1 applic 04/04/16 10:00 04/05/16 10:34 Mycolog Ii Cream - TP 1 applic BID JUAN Administration Pantoprazole Sodium 40 mg 04/04/16 10:00 04/05/16 10:31 Protonix - PO 40 mg DAILY JUAN Administration Polyethylene Glycol 17 gm 04/02/16 22:00 04/05/16 10:31 Miralax (For Daily Use) - PO 17 gm BID JUAN Administration Zinc Acetate/Diphenhydramine 1 applic 04/04/16 10:00 04/05/16 10:33 Benadryl 2% Cream TP 1 applic BID JUAN Administration Impression 1. pericardial effusion 2. hypoxia 3. proteinuria 4. HTN 5. skin cancer 6. congestion on cxr 7. s/p fall and laceration to head 8. hyperkalemia 9. azotemia Plan - volume status is stabilizing - cont with lasix - d/c planning - can see as outpt if needed - cardio input appreciated - cont with pt/rehab - will follow PRN - cont current management Dr Ruth
--- NOTE | 2016-04-05 13:45 | PN ---
Progress Note, Physician History of Present Illness: stable breathing well - Current Medication List Current Medications: Active Medications Acetaminophen (Tylenol -) 650 mg PO Q6H PRN PRN Reason: FEVER OR PAIN Albuterol Sulfate (Ventolin 0.083% Nebulizer Soln -) 1 amp NEB BID [facility] Last Admin: 04/05/16 10:20 Dose: 1 amp Albuterol/Ipratropium (Duoneb -) 1 amp NEB Q6H PRN PRN Reason: PAIN Bacitracin (Bacitracin -) 1 applic TP DAILY [facility] Last Admin: 04/05/16 10:32 Dose: 1 applic Docusate Sodium (Colace -) 100 mg PO Q8H PRN PRN Reason: CONSTIPATION Furosemide (Lasix -) 40 mg PO BID@0600,1400 [facility] Last Admin: 04/05/16 05:53 Dose: 40 mg Guaifenesin (Robitussin Dm -) 5 ml PO Q6H PRN PRN Reason: COUGH Metoprolol Tartrate (Lopressor -) 37.5 mg PO TID [facility] Last Admin: 04/05/16 05:53 Dose: 37.5 mg Metoprolol Tartrate (Lopressor Injection -) 5 mg IVPUSH Q4H PRN PRN Reason: TACHYCARDIA Mupirocin (Bactroban 2% Ointment -) 1 applic TP BID [facility] Last Admin: 04/05/16 10:33 Dose: 1 applic Nystatin/Triamcinolone Acetonide (Mycolog Ii Cream -) 1 applic TP BID [facility] Last Admin: 04/05/16 10:34 Dose: 1 applic Pantoprazole Sodium (Protonix -) 40 mg PO DAILY [facility] Last Admin: 04/05/16 10:31 Dose: 40 mg Polyethylene Glycol (Miralax (For Daily Use) -) 17 gm PO BID [facility] Last Admin: 04/05/16 10:31 Dose: 17 gm Zinc Acetate/Diphenhydramine (Benadryl 2% Cream) 1 applic TP BID [facility] Last Admin: 04/05/16 10:33 Dose: 1 applic - Objective Vital Signs: Vital Signs Temperature 99.0 F 04/05/16 06:00 Pulse Rate 94 H 04/05/16 05:47 Respiratory Rate 20 04/05/16 05:47 Blood Pressure 100/49 04/05/16 05:47 O2 Sat by Pulse Oximetry (%) 96 04/04/16 21:00 Constitutional: Yes: No Distress, Calm Cardiovascular: Yes: Regular Rate and Rhythm Respiratory: Yes: Regular, Rhonchi Gastrointestinal: Yes: Normal Bowel Sounds, Soft Musculoskeletal: Yes: WNL Extremities: Yes: WNL Neurological: Yes: Alert, Oriented Psychiatric: Yes: Alert Labs: CBC, BMP 04/05/16 06:45 04/05/16 06:45 INR, PTT INR 1.43 (0.82-1.09) H 03/29/16 09:30 Assessment/Plan Problem List - Problems (1) Hypoxia Code(s): R09.02 - HYPOXEMIA (2) Lethargy Code(s): R53.83 - OTHER FATIGUE (3) Pericardial effusion Code(s): I31.3 - PERICARDIAL EFFUSION (NONINFLAMMATORY) (4) Proteinuria Code(s): R80.9 - PROTEINURIA, UNSPECIFIED (5) Hypertension Code(s): I10 - ESSENTIAL (PRIMARY) HYPERTENSION (6) Skin cancer Code(s): C44.90 - UNSPECIFIED MALIGNANT NEOPLASM OF SKIN, UNSPECIFIED abd pain cough plan continue following rest as per primary
--- NOTE | 2016-04-05 17:33 | PN ---
Physical Exam: SUBJECTIVE: Patient seen and examined. No acute issues overnight. Appears comfortable in bed OBJECTIVE: Vital Signs Period Temp Pulse Resp BP Sys/Sanford Pulse Ox Last 24 Hr 97.6 F-99.0 F 83-119 19-22 99-139/49-76 96-96 PE Neuro: awake, cn 2-12 intact no acute distress Pulm: rhonchi anterior upper lobes, L>R CV: s1 s2 no mrg Abd: s nt nd + bs Gu: Labia majoral swelling Ext: RLE tumorous growth Laboratory Results - last 24 hr 04/05/16 04/05/16 06:45 06:45 WBC 12.5 H RBC 3.50 L Hgb 10.5 L Hct 32.5 MCV 92.8 MCHC 32.4 RDW 17.3 H Plt Count 277 MPV 9.4 Neutrophils % 77.8 Lymphocytes % 8.5 D Monocytes % 11.3 H Eosinophils % 1.7 Basophils % 0.7 Sodium 137 Potassium 4.8 Chloride 97 L Carbon Dioxide 32 Anion Gap 8 BUN 13 Creatinine 0.7 D Creat Clearance w eGFR > 60 Random Glucose 121 H Calcium 8.4 L Magnesium 2.1 Total Bilirubin 0.5 D AST 18 ALT 20 D Alkaline Phosphatase 93 Total Protein 5.9 L Albumin 2.1 L Active Medications Generic Name Dose Route Start Last Admin Trade Name Freq PRN Reason Stop Dose Admin Acetaminophen 650 mg 04/03/16 23:07 Tylenol - PO Q6H PRN FEVER OR PAIN Albuterol Sulfate 1 amp 04/04/16 10:00 04/05/16 10:20 Ventolin 0.083% Nebulizer Soln - NEB 1 amp BID JUAN Administration Albuterol/Ipratropium 1 amp 04/03/16 23:07 Duoneb - NEB Q6H PRN PAIN Bacitracin 1 applic 04/04/16 10:00 04/05/16 10:32 Bacitracin - TP 1 applic DAILY JUAN Administration Docusate Sodium 100 mg 04/03/16 23:07 Colace - PO Q8H PRN CONSTIPATION Furosemide 40 mg 04/05/16 06:00 04/05/16 15:11 Lasix - PO 40 mg BID@0600,1400 JUAN Administration Guaifenesin 5 ml 04/03/16 23:07 Robitussin Dm - PO Q6H PRN COUGH Metoprolol Tartrate 37.5 mg 04/04/16 06:00 04/05/16 15:08 Lopressor - PO 37.5 mg TID JUAN Administration Metoprolol Tartrate 5 mg 04/03/16 23:07 Lopressor Injection - IVPUSH Q4H PRN TACHYCARDIA Mupirocin 1 applic 04/04/16 22:00 04/05/16 10:33 Bactroban 2% Ointment - TP 1 applic BID JUAN Administration Nystatin/Triamcinolone Acetonide 1 applic 04/04/16 10:00 04/05/16 10:34 Mycolog Ii Cream - TP 1 applic BID JUAN Administration Pantoprazole Sodium 40 mg 04/04/16 10:00 04/05/16 10:31 Protonix - PO 40 mg DAILY JUAN Administration Polyethylene Glycol 17 gm 04/02/16 22:00 04/05/16 10:31 Miralax (For Daily Use) - PO 17 gm BID JUAN Administration Zinc Acetate/Diphenhydramine 1 applic 04/04/16 10:00 04/05/16 10:33 Benadryl 2% Cream TP 1 applic BID JUAN Administration Imaging: - Echo reviewed moderate to severe lvef with inferior wall hypokinesis Assessment: 75 year old female with PMH of HTN, [place] x2, pericardial effusion s/p pericardial window on 03/15. Prolonged hopsital course. Plan: 1. Severe systolic heart failure - CXR shows worsening pulmonary congestion bilaterally - Transition to lasix 40mg BID, monitor response 2. Moderate pericardial effusion s/p pericardial window - 04/02 Echo: small, loculated pericardial effusion, smaller than previous, no signs of tamponade 3. Multilobar pneumonia, resolved - Stable at present, leukocytosis mildly elevated, afebrile - Completed x7 days zosyn - Monitor off abx 4. Severe sepsis w/ lactic acidosis - due to above - Resolved 5. Cholilithiasis - No acute cholecystitis noted 6. r/o malignancy - Imaging from [facility] showed lytic lesions throughout the calvarium and the cervical spine; also with tumorous growth on RLE, no further work up 7. Soft tissue facial injuries s/p mechanical fall, resolved 8. Occipital laceration - Stable s/p staple removal 03/29 9. DVT prophylaxis: lovenox 10. Chest pain - Resolved 11. P. Afib - On Metoprolol 37.5 TID Dispo: - If tolerated PO lasix, may consider discharge home with O2. Visit type - Emergency Visit Emergency Visit: Yes ED Registration Date: 03/09/16 Care time: The patient presented to the Emergency Department on the above date and was hospitalized for further evaluation of their emergent condition. - New Patient This patient is new to me today: Yes Date on this admission: 04/05/16 - Critical Care Critical Care patient: No
[2016-04-05] MEDS ORDERED: PT OWN MED DRAWER 7, Y5N ONE (22:10)
[2016-04-06] MEDS ORDERED: PT OWN MED DRAWER 7, Y5N ONE ×2 (00:01→22:32)
[2016-04-06] MEDS: FUROSEMIDE 40 MG TABLET (FP) PO SCH (06:44)
[2016-04-06] MEDS: METOPROLOL TARTRATE 25 MG TABLET (FP) PO SCH ×3 (06:45→22:44)
[2016-04-06 08:14] LABS: BASOPHIL 0.6 % (0-2.0); EOSINOPHIL 1.4 % (0-4.5); MCH 30.2 pg (25.7-33.7); MCHC 32.6 g/dl (32.0-36.0); MEAN CELL VOLUME 92.6 fl (80-96); MEAN PLT VOLUME 9.3 fl (7.5-11.1); NEUTROPHILS 76.3 % (42.8-82.8); PLATELET COUNT 260 K/MM3 (134-434); RDW 18.3 % (11.6-15.6); WHITE BLOOD COUNT 10.2 K/mm3 (4.0-10.0)
[2016-04-06 08:43] LABS: CALCIUM 8.6 mg/dL (8.5-10.1)
[2016-04-06 08:47] LABS: CREATININE 0.6 mg/dL (0.55-1.02)
[2016-04-06] MEDS: ALBUTEROL SO4 0.083% IH SOL 2.5 MG/3 ML VIAL.NEB. NEB SCH ×2 (09:15→23:22)
[2016-04-06] MEDS: BACITRACIN 30 GM TUBE TOPICAL OINTMENT TP SCH (09:57)
[2016-04-06] MEDS: NYSTATIN/TRIAMCINOLONE TOPICAL CREAM 15 GM TUBE TP SCH (09:57)
[2016-04-06] MEDS: MUPIROCIN 2% TOPICAL OINTMENT 22 GM TUBE TP SCH ×2 (09:57→22:44)
[2016-04-06] MEDS: PANTOPRAZOLE 40 MG TABLET (FP) PO SCH (09:57)
--- NOTE | 2016-04-06 12:00 | PN ---
Progress Note (short form) - Note Progress Note: s: confused, no overnight events, no cp, appears more sob than yesterday o: Vital Signs Period Temp Pulse Resp BP Sys/Sanford Pulse Ox Last 24 Hr 97.6 F-98.2 F 62-119 19-22 119-135/50-98 95-97 Constitutional: Yes: No Distress, Calm Eyes: No: Sclera Icterus Cardiovascular: Yes: Regular Rate and Rhythm, no jvd, S1, S2,. No: Gallop, Murmur, Rub Respiratory: Yes: scattered rhonchi; No: Accessory Muscle Use, Rales, Wheezes Gastrointestinal: Yes: Normal Bowel Sounds, Soft. No: Tenderness Extremities: No: Cold Edema: No Integumentary: No: Jaundice diaphoresis Neurological: awake Psychiatric: No: Agitated Current Medications Generic Name Dose Route Start Last Admin Trade Name Freq PRN Reason Stop Dose Admin Acetaminophen 650 mg 04/03/16 23:07 Tylenol - PO Q6H PRN FEVER OR PAIN Albuterol Sulfate 1 amp 04/04/16 10:00 04/06/16 09:15 Ventolin 0.083% Nebulizer Soln - NEB 1 amp BID JUAN Administration Albuterol/Ipratropium 1 amp 04/03/16 23:07 Duoneb - NEB Q6H PRN PAIN Bacitracin 1 applic 04/04/16 10:00 04/06/16 09:57 Bacitracin - TP 1 applic DAILY JUAN Administration Docusate Sodium 100 mg 04/03/16 23:07 Colace - PO Q8H PRN CONSTIPATION Furosemide 60 mg 04/06/16 14:00 Lasix - PO BID@0600,1400 JUAN Guaifenesin 5 ml 04/03/16 23:07 Robitussin Dm - PO Q6H PRN COUGH Metoprolol Tartrate 37.5 mg 04/04/16 06:00 04/06/16 06:45 Lopressor - PO 37.5 mg TID JUAN Administration Metoprolol Tartrate 5 mg 04/03/16 23:07 Lopressor Injection - IVPUSH Q4H PRN TACHYCARDIA Mupirocin 1 applic 04/04/16 22:00 04/06/16 09:57 Bactroban 2% Ointment - TP 1 applic BID JUAN Administration Nystatin/Triamcinolone Acetonide 1 applic 04/04/16 10:00 04/06/16 09:57 Mycolog Ii Cream - TP 1 applic BID JUAN Administration Pantoprazole Sodium 40 mg 04/04/16 10:00 04/06/16 09:57 Protonix - PO 40 mg DAILY JUAN Administration Polyethylene Glycol 17 gm 04/02/16 22:00 04/05/16 22:50 Miralax (For Daily Use) - PO 17 gm BID JUAN Administration Zinc Acetate/Diphenhydramine 1 applic 04/04/16 10:00 04/06/16 09:57 Benadryl 2% Cream TP 1 applic BID JUAN Administration CBC, BMP 04/06/16 07:00 04/06/16 07:00 Repeat chest/abd CT 03/24: Small subpleural infiltrates, rt basilar and lingular infiltrate. Small-mod pleural effusion. small-moderate pericardial effusion. No abdominal pathology. Echo 03/09/16 : mod-sev dec lvef, inf wall hk, nl rv, mild lae, mild mr/tr, moderate pericardial eff, ?impending tamponade based on ra wall collapse Repeat echo 03/12/16: mild con LVH. mod-sev depressed LV sys func (global), 1+ MR/TR, effusion unchanged, still with early diastolic RA collapse. repeat echo 03/21/16: sev dec lvef, nl rv, mild piotr, mild mr, mod-sev tr, rvsp 40-50, trivial pericardial eff, no signs tamponade Echo 04/02/16: Nl lv size/fn. RV not assessed. 1+ MR. MOd TR. Small effusion. a/p: 75 f (she is 83 according to family) with hx htn, h/o OR x 2, dementia and possible recent diagnosis of cancer (unknown type), here with lethargy, weakness found to have systolic cardiomyopathy and pericardial effusion. pericardial effusion, possible acute pericarditis: -presented with moderate circumferential pericardial eff present but no signs of tamponade. clinically no signs of tamponade as well. -no obvious pericarditis, initially treated empirically with colchicine/ indomethacin but then renal fcn had worsened a little so they have been stopped -hemodynamically stable throughout, with no clinical tamponade -s/p pericardial window 03/16 (diagnostic as well) with 500 cc non-bloody fluid removed. pericardial fluid cultures, cytology pending. -repeat echo shows resolution of eff, but evidence of reaccumulation on 03/24 CT scan with symptoms of nausea. Would not diurese further. - 03/26: hemodynamically stable, bp improving. - 03/27: hemodynamically stable, bp normalized. Volume up today so will diurese. If bp drops, will plan on repeat echo to evaluate effusion. - 03/28-: ct chest was reviewed by cts and she is not felt to have any significant re-accumulation of pericardial eff. remains hemodynamically stable -04/02-: Repeat echo with nl lv function. Minimal reaccumulation of pericardial effusion since drain (small), bp stable syst chf: -echo here shows mod-sev decreased lvef with inferior hypokinesis, patient with h/o prior OR--followed by doctors in [place] where she lives, per dtr (here visiting) -cont bb, bp too low for marian-i -no angina or other signs acs, ce's negx3, ecg w/o ischemic changes or significant q waves -03/12: clinically no definite chf, exam equiovocal for JVD--monitor closely with IVF. - 03/13: Now off IVF. CXR with new rt pleural effusion. No change in effusion size or hemodynamics with IVF. gentle diuresis as mentioned above. Strict I/O' s, daily weights. -03/14-: no signs chf on exam/cxr. cont to hold lasix and ivfs for now -will defer ? of need for ischemia eval to [facility] doctors (dtr states pt plans to return as soon as medically stable)--? LV dysfxn is chronic and stable -low dose BB trial as doing. ACEI trial (2.5 mg) given 03/19 but dropped blood pressures. -03/20: Bp trending down s/p lasix and lisinopril yesterday evening. will hold dose this morning. Consider resuming again tomorrow if bp remains stable. WBC rising and cough worsening. Would repeat chest CT. -03/21: still with some chf on imaging and pericardial effusion improved (small on ct chest) so will give iv lasix dose today to help with congestion. -03/22: still with some chf on cxr so agree with 40 iv lasix dose today to help with congestion. -03/23-03/24: developing signs of infection (possible multifocal pna), poor po intake. Holding diuretics. Maintenance fluids today 03/24. Continue daily weights. -03/25-03/26: BP improved signifcantly on antibiotics. Con't to hold diuresis. - 03/27: Volume up today, will give trial dose of lasix 20 mg IV x 1. -03/28: cont prn lasix for now, avoid excess ivfs -03/29-: cont low dose maintenance lasix 20 po qd -04/02: JVD to neck--rpt limited echo today to r/o hemodynamically-signif peric effusion, as above; lasix 20 IVP x 1 today--may need more diuresis depending on bp response after test dose (i.e. no hypotension) and echo findings --> stable bp after IV lasix - 04/03. weight down today. PO dose uptitrated to 40 mg/day for tomorrow. Revaluate tomorrow for need for further IV lasix. - 04/04: having more sob today, will give iv lasix again today instead of po, resume po lasix 40 tomorrow - 04/05: cont po lasix at increased dose of 40 bid - 04/06: wt down with increased lasix, still seems sob, agree with increase of lasix from 40 bid po to 60 bid po, monitor resp status on increased po diuretic to see if can be discharged on po yet svt/PAT: -has had periodically during admit here. no obvious afib, now off tele -cont bb leukocytosis: -unclear etiology, being followed by ID lethargy/weakness: -head ct w/o acute findings. likely 2/2 to aforementioned acute illnesses. -PT htn: - cont bb. elevated trop: -trop borderline elevated (peak 0.28) the day after episode of prolonged SVT/ fever. Nl ck, no ischemic changes on ecgs. likely due to demand ischemia from svt in setting of known CAD. Troponin trended down. No signs of acs presently malignancy: -imaging at OSH shows lytic lesions in spine, HCP declines eval, wants her to go back home to [place]
[2016-04-06] MEDS: POLYETHYLENE GLYCOL 3350 119 GM BTL PO SCH ×2 (12:05→22:45)
--- NOTE | 2016-04-06 13:59 | PN ---
Progress Note, Physician History of Present Illness: stable breathing well confusion - Current Medication List Current Medications: Active Medications Acetaminophen (Tylenol -) 650 mg PO Q6H PRN PRN Reason: FEVER OR PAIN Albuterol Sulfate (Ventolin 0.083% Nebulizer Soln -) 1 amp NEB BID [facility] Last Admin: 04/06/16 09:15 Dose: 1 amp Albuterol/Ipratropium (Duoneb -) 1 amp NEB Q6H PRN PRN Reason: PAIN Bacitracin (Bacitracin -) 1 applic TP DAILY [facility] Last Admin: 04/06/16 09:57 Dose: 1 applic Docusate Sodium (Colace -) 100 mg PO Q8H PRN PRN Reason: CONSTIPATION Furosemide (Lasix -) 60 mg PO BID@0600,1400 [facility] Guaifenesin (Robitussin Dm -) 5 ml PO Q6H PRN PRN Reason: COUGH Metoprolol Tartrate (Lopressor -) 37.5 mg PO TID [facility] Last Admin: 04/06/16 06:45 Dose: 37.5 mg Metoprolol Tartrate (Lopressor Injection -) 5 mg IVPUSH Q4H PRN PRN Reason: TACHYCARDIA Mupirocin (Bactroban 2% Ointment -) 1 applic TP BID [facility] Last Admin: 04/06/16 09:57 Dose: 1 applic Nystatin/Triamcinolone Acetonide (Mycolog Ii Cream -) 1 applic TP BID [facility] Last Admin: 04/06/16 09:57 Dose: 1 applic Pantoprazole Sodium (Protonix -) 40 mg PO DAILY [facility] Last Admin: 04/06/16 09:57 Dose: 40 mg Polyethylene Glycol (Miralax (For Daily Use) -) 17 gm PO BID [facility] Last Admin: 04/06/16 12:05 Dose: Not Given Zinc Acetate/Diphenhydramine (Benadryl 2% Cream) 1 applic TP BID [facility] Last Admin: 04/06/16 09:57 Dose: 1 applic - Objective Vital Signs: Vital Signs Temperature 98.1 F 04/06/16 10:00 Pulse Rate 76 04/06/16 10:00 Respiratory Rate 22 04/06/16 10:00 Blood Pressure 119/64 04/06/16 10:00 O2 Sat by Pulse Oximetry (%) 97 04/06/16 09:15 Constitutional: Yes: No Distress, Calm Cardiovascular: Yes: Regular Rate and Rhythm Respiratory: Yes: Regular, CTA Bilaterally Gastrointestinal: Yes: Normal Bowel Sounds, Soft Musculoskeletal: Yes: WNL Extremities: Yes: WNL Integumentary: Yes: WNL Neurological: Yes: Alert, Confusion Labs: CBC, BMP 04/06/16 07:00 04/06/16 07:00 INR, PTT INR 1.43 (0.82-1.09) H 03/29/16 09:30 Assessment/Plan Problem List - Problems (1) Hypoxia Code(s): R09.02 - HYPOXEMIA (2) Lethargy Code(s): R53.83 - OTHER FATIGUE (3) Pericardial effusion Code(s): I31.3 - PERICARDIAL EFFUSION (NONINFLAMMATORY) (4) Proteinuria Code(s): R80.9 - PROTEINURIA, UNSPECIFIED (5) Hypertension Code(s): I10 - ESSENTIAL (PRIMARY) HYPERTENSION (6) Skin cancer Code(s): C44.90 - UNSPECIFIED MALIGNANT NEOPLASM OF SKIN, UNSPECIFIED abd pain cough plan continue following rest as per primary
[2016-04-06] MEDS ORDERED: FUROSEMIDE 40 MG TABLET (FP) PO SCH (14:00)
--- NOTE | 2016-04-06 14:45 | PN ---
Physical Exam: SUBJECTIVE: Patient seen and examined. She does not feel like eating and she is able to follow directions. OBJECTIVE: Vital Signs Period Temp Pulse Resp BP Sys/Sanford Pulse Ox Last 24 Hr 97.6 F-98.2 F 62-119 19-22 119-135/50-98 95-97 PE Neuro: awake, cn 2-12 intact no acute distress Pulm: diminished with bibasilar crackles CV: s1 s2 no mrg Abd: s nt nd + bs Ext: RLE tumorous growth Laboratory Results - last 24 hr 04/06/16 04/06/16 07:00 07:00 WBC 10.2 H RBC 3.65 Hgb 11.1 Hct 33.9 MCV 92.6 MCHC 32.6 RDW 18.3 H Plt Count 260 MPV 9.3 Neutrophils % 76.3 Lymphocytes % 8.8 Monocytes % 12.9 H Eosinophils % 1.4 Basophils % 0.6 Sodium 134 L Potassium 4.9 Chloride 94 L Carbon Dioxide 33 H Anion Gap 7 L BUN 14 Creatinine 0.6 Random Glucose 150 H D Calcium 8.6 Active Medications Generic Name Dose Route Start Last Admin Trade Name Freq PRN Reason Stop Dose Admin Acetaminophen 650 mg 04/03/16 23:07 Tylenol - PO Q6H PRN FEVER OR PAIN Albuterol Sulfate 1 amp 04/04/16 10:00 04/06/16 09:15 Ventolin 0.083% Nebulizer Soln - NEB 1 amp BID JUAN Administration Albuterol/Ipratropium 1 amp 04/03/16 23:07 Duoneb - NEB Q6H PRN PAIN Bacitracin 1 applic 04/04/16 10:00 04/06/16 09:57 Bacitracin - TP 1 applic DAILY JUAN Administration Docusate Sodium 100 mg 04/03/16 23:07 Colace - PO Q8H PRN CONSTIPATION Furosemide 60 mg 04/06/16 14:00 04/06/16 14:31 Lasix - PO 60 mg BID@0600,1400 JUAN Administration Guaifenesin 5 ml 04/03/16 23:07 Robitussin Dm - PO Q6H PRN COUGH Metoprolol Tartrate 37.5 mg 04/04/16 06:00 04/06/16 14:31 Lopressor - PO 37.5 mg TID JUAN Administration Metoprolol Tartrate 5 mg 04/03/16 23:07 Lopressor Injection - IVPUSH Q4H PRN TACHYCARDIA Mupirocin 1 applic 04/04/16 22:00 04/06/16 09:57 Bactroban 2% Ointment - TP 1 applic BID JUAN Administration Nystatin/Triamcinolone Acetonide 1 applic 04/04/16 10:00 04/06/16 09:57 Mycolog Ii Cream - TP 1 applic BID JUAN Administration Pantoprazole Sodium 40 mg 04/04/16 10:00 04/06/16 09:57 Protonix - PO 40 mg DAILY JUAN Administration Polyethylene Glycol 17 gm 04/02/16 22:00 04/06/16 12:05 Miralax (For Daily Use) - PO Not Given BID JUAN Zinc Acetate/Diphenhydramine 1 applic 04/04/16 10:00 04/06/16 09:57 Benadryl 2% Cream TP 1 applic BID JUAN Administration Imaging: Assessment: 75 year old female with PMH of HTN, AL x2, pericardial effusion s/p pericardial window on 03/15. Prolonged hospital course. Plan: 1. Severe systolic heart failure - Weight down ~1lb since increase in diuretics - Resp improved today - Increase Lasix 60mg PO BID 2. Moderate pericardial effusion s/p pericardial window - ECHO 04/02: small, loculated pericardial effusion, smaller than previous, no signs of tamponade 3. Multilobar pneumonia, resolved - Completed x7 days zosyn 4. Severe sepsis w/ lactic acidosis - due to above - Resolved 5. Cholilithiasis - No acute cholecystitis noted 6. r/o malignancy - Imaging from [facility] showed lytic lesions throughout the calvarium and the cervical spine; also with tumorous growth on RLE, no further work up 7. Soft tissue facial injuries s/p mechanical fall, resolved 8. Occipital laceration - Stable s/p staple removal 03/29 9. DVT prophylaxis: lovenox 10. Chest pain - Resolved 11. P. Afib - On Metoprolol 37.5 TID Dispo: - Likely dc home tomorrow with VNS referral and home oxygen Visit type - Emergency Visit Emergency Visit: Yes ED Registration Date: 03/09/16 Care time: The patient presented to the Emergency Department on the above date and was hospitalized for further evaluation of their emergent condition. - New Patient This patient is new to me today: No - Critical Care Critical Care patient: No
--- NOTE | 2016-04-06 17:32 | PN ---
Progress Note, Physician History of Present Illness: Pt seen and examined at bedside. She appears fatigued. - Current Medication List Current Medications: Active Medications Acetaminophen (Tylenol -) 650 mg PO Q6H PRN PRN Reason: FEVER OR PAIN Albuterol Sulfate (Ventolin 0.083% Nebulizer Soln -) 1 amp NEB BID [facility] Last Admin: 04/06/16 09:15 Dose: 1 amp Albuterol/Ipratropium (Duoneb -) 1 amp NEB Q6H PRN PRN Reason: PAIN Bacitracin (Bacitracin -) 1 applic TP DAILY [facility] Last Admin: 04/06/16 09:57 Dose: 1 applic Docusate Sodium (Colace -) 100 mg PO Q8H PRN PRN Reason: CONSTIPATION Furosemide (Lasix -) 60 mg PO BID@0600,1400 [facility] Last Admin: 04/06/16 14:31 Dose: 60 mg Guaifenesin (Robitussin Dm -) 5 ml PO Q6H PRN PRN Reason: COUGH Metoprolol Tartrate (Lopressor -) 37.5 mg PO TID [facility] Last Admin: 04/06/16 14:31 Dose: 37.5 mg Metoprolol Tartrate (Lopressor Injection -) 5 mg IVPUSH Q4H PRN PRN Reason: TACHYCARDIA Mupirocin (Bactroban 2% Ointment -) 1 applic TP BID [facility] Last Admin: 04/06/16 09:57 Dose: 1 applic Nystatin/Triamcinolone Acetonide (Mycolog Ii Cream -) 1 applic TP BID [facility] Last Admin: 04/06/16 09:57 Dose: 1 applic Pantoprazole Sodium (Protonix -) 40 mg PO DAILY [facility] Last Admin: 04/06/16 09:57 Dose: 40 mg Polyethylene Glycol (Miralax (For Daily Use) -) 17 gm PO BID [facility] Last Admin: 04/06/16 12:05 Dose: Not Given Zinc Acetate/Diphenhydramine (Benadryl 2% Cream) 1 applic TP BID [facility] Last Admin: 04/06/16 09:57 Dose: 1 applic - Objective Vital Signs: Vital Signs Temperature 99.3 F 04/06/16 16:01 Pulse Rate 83 04/06/16 16:01 Respiratory Rate 20 04/06/16 16:01 Blood Pressure 108/52 04/06/16 16:01 O2 Sat by Pulse Oximetry (%) 97 04/06/16 09:15 Constitutional: Yes: Calm Eyes: Yes: Conjunctiva Clear Cardiovascular: Yes: S1, S2 Respiratory: Yes: On Nasal O2 Gastrointestinal: Yes: Soft Genitourinary: Yes: Incontinence Musculoskeletal: Yes: Muscle Weakness Edema: No Neurological: Yes: Oriented Psychiatric: Yes: Oriented Labs: CBC, BMP 04/06/16 07:00 04/06/16 07:00 INR, PTT INR 1.43 (0.82-1.09) H 03/29/16 09:30 Problem List - Problems (1) Hypoxia Code(s): R09.02 - HYPOXEMIA (2) Lethargy Code(s): R53.83 - OTHER FATIGUE (3) Pericardial effusion Code(s): I31.3 - PERICARDIAL EFFUSION (NONINFLAMMATORY) (4) Proteinuria Code(s): R80.9 - PROTEINURIA, UNSPECIFIED (5) Hypertension Code(s): I10 - ESSENTIAL (PRIMARY) HYPERTENSION (6) Skin cancer Code(s): C44.90 - UNSPECIFIED MALIGNANT NEOPLASM OF SKIN, UNSPECIFIED Assessment/Plan Current Medications Generic Name Dose Route Start Last Admin Trade Name Freq PRN Reason Stop Dose Admin Acetaminophen 650 mg 04/03/16 23:07 Tylenol - PO Q6H PRN FEVER OR PAIN Albuterol Sulfate 1 amp 04/04/16 10:00 04/06/16 09:15 Ventolin 0.083% Nebulizer Soln - NEB 1 amp BID JUAN Administration Albuterol/Ipratropium 1 amp 04/03/16 23:07 Duoneb - NEB Q6H PRN PAIN Bacitracin 1 applic 04/04/16 10:00 04/06/16 09:57 Bacitracin - TP 1 applic DAILY JUAN Administration Docusate Sodium 100 mg 04/03/16 23:07 Colace - PO Q8H PRN CONSTIPATION Furosemide 60 mg 04/06/16 14:00 04/06/16 14:31 Lasix - PO 60 mg BID@0600,1400 JUAN Administration Guaifenesin 5 ml 04/03/16 23:07 Robitussin Dm - PO Q6H PRN COUGH Metoprolol Tartrate 37.5 mg 04/04/16 06:00 04/06/16 14:31 Lopressor - PO 37.5 mg TID JUAN Administration Metoprolol Tartrate 5 mg 04/03/16 23:07 Lopressor Injection - IVPUSH Q4H PRN TACHYCARDIA Mupirocin 1 applic 04/04/16 22:00 04/06/16 09:57 Bactroban 2% Ointment - TP 1 applic BID JUAN Administration Nystatin/Triamcinolone Acetonide 1 applic 04/04/16 10:00 04/06/16 09:57 Mycolog Ii Cream - TP 1 applic BID JUAN Administration Pantoprazole Sodium 40 mg 04/04/16 10:00 04/06/16 09:57 Protonix - PO 40 mg DAILY JUAN Administration Polyethylene Glycol 17 gm 04/02/16 22:00 04/06/16 12:05 Miralax (For Daily Use) - PO Not Given BID JUAN Zinc Acetate/Diphenhydramine 1 applic 04/04/16 10:00 04/06/16 09:57 Benadryl 2% Cream TP 1 applic BID JUAN Administration Impression 1. pericardial effusion 2. hypoxia 3. proteinuria 4. HTN 5. skin cancer 6. congestion on cxr 7. s/p fall and laceration to head 8. hyperkalemia 9. azotemia Plan - case discussed with family, they would like to take the patient back to [place] as soon as possible as these are her wishes. Explained the risks of flying. - cont lasix - pt/rehab - encourage PO intake - will follow PRN - cont current management Dr Ruth
[2016-04-07 07:23] VITALS: TEMP 97.9
[2016-04-07] MEDS: PANTOPRAZOLE 40 MG TABLET (FP) PO SCH (09:35)
[2016-04-07] MEDS: NYSTATIN/TRIAMCINOLONE TOPICAL CREAM 15 GM TUBE TP SCH (09:37)
[2016-04-07] MEDS: BACITRACIN 30 GM TUBE TOPICAL OINTMENT TP SCH (09:37)
[2016-04-07] MEDS: MUPIROCIN 2% TOPICAL OINTMENT 22 GM TUBE TP SCH (09:37)
[2016-04-07] MEDS: POLYETHYLENE GLYCOL 3350 119 GM BTL PO SCH (09:37)
--- NOTE | 2016-04-07 10:10 | DS ---
Physical Exam: SUBJECTIVE: Patient seen and examined OBJECTIVE: Vital Signs Period Temp Pulse Resp BP Sys/Sanford Pulse Ox Last 24 Hr 97.9 F-99.3 F 82-89 20-20 107-122/52-66 PHYSICAL EXAM GENERAL: The patient is awake, alert, and fully oriented, in no acute distress. HEAD: Normal with no signs of trauma. EYES: PERRL, extraocular movements intact, sclera anicteric, conjunctiva clear. ENT: Ears normal, nares patent, oropharynx clear without exudates, moist mucous membranes. NECK: Trachea midline, full range of motion, supple. LUNGS: Breath sounds equal, clear to auscultation bilaterally, no wheezes, no crackles, no accessory muscle use. HEART: Regular rate and rhythm, S1, S2 without murmur, rub or gallop. ABDOMEN: Soft, nontender, nondistended, normoactive bowel sounds, no guarding, no rebound, no hepatosplenomegaly, no masses. EXTREMITIES: 2+ pulses, warm, well-perfused, no edema. NEUROLOGICAL: Cranial nerves II through XII grossly intact. Normal speech, gait not observed. PSYCH: Normal mood, normal affect. SKIN: Warm, dry, normal turgor, no rashes or lesions noted. LABS HOSPITAL COURSE: Date of Admission:03/09/16 Date of Discharge: 04/07/16 Minutes to complete discharge: 35 Discharge Summary Reason For Visit: HYPOXIA LETHARGY Current Active Problems Hypertension (Acute) Hypoxia (Acute) Lethargy (Acute) Pericardial effusion (Acute) Proteinuria (Acute) Skin cancer (Acute) Condition: Stable - Instructions Diet, Activity, Other Instructions: Please return to the Emergency Department if your symptoms worsening, persist or are new. Follow up with your doctor in 1 week (referral information enclosed) Take medication as directed and regularly, the medication is sent to [facility] Oxygen therapy is set up, the oxygen company is scheduled to be at your house at 11 am 04/07 to deliver remaining service items Visiting nurse is set up to come to home to evaluate Should you require oxygen for transcontinental arrangements please refer to the information from Shea from [employer] work or call this company [employer] ([phone]; 24 hr customer service) with regards to buying or renting an oxygen tank A private aid assistance referral has been made, please refer to [employer] card for further reference Referrals: Michelle Zhang MD [Staff Physician] - STAFF,NOT ON [Primary Care Provider] - Tessa Ruth MD [Staff Physician] - Disposition: HOME - Home Medications Comprehensive Discharge Medication List: Ambulatory Orders Docusate Sodium [Colace -] 100 mg PO Q8H PRN #90 capsule 04/06/16 Furosemide [Lasix] 40 mg PO TID #90 tablet 04/06/16 Metoprolol Tartrate 37.5 mg PO TID #90 tablet 04/06/16 Nystatin/Triamcinolone Top Cr [Mycolog II -] 1 applic TP BID #1 applic 04/06/16
[2016-04-07] MEDS: ALBUTEROL SO4 0.083% IH SOL 2.5 MG/3 ML VIAL.NEB. NEB SCH (10:58)
[2016-04-07 11:00] VITALS: PULSE 90
[2016-04-07 13:55] VITALS: BP 126/69
== END 2016-04-07 11:59 | disposition home or self-care (01) | DRG 180 ==
LOC: JER 18:58 → JERBED 03-09 01:12 → UNDOADMIN 03-09 01:12 → JERBED 03-09 01:39 → J7W 03-09 04:54 → J4S 03-09 09:44 → JICU 03-09 13:25 → J7W 03-21 19:05 → J4W 03-22 19:26 → JICU 03-25 12:00 → J4W 03-28 20:51 → J5S 04-03 20:44
PROVIDERS: ADMIT Internal Medicine; ATTEND Nurse Practitioner Acute Care
PROC: 5A09457 Assistance with Respiratory Ventilation, 24-96 Consecutive Hours, Continuous Positive Airway Pressure (ICD-10-PCS; 2016-03-09)
PROC: 0W9D40Z Drainage of Pericardial Cavity with Drainage Device, Percutaneous Endoscopic Approach (ICD-10-PCS; 2016-03-15)
PROC: 4A133B1 Monitoring of Arterial Pressure, Peripheral, Percutaneous Approach (ICD-10-PCS; 2016-03-15)
PROC: 4A133J1 Monitoring of Arterial Pulse, Peripheral, Percutaneous Approach (ICD-10-PCS; 2016-03-15)
PROC: 02BN4ZX Excision of Pericardium, Percutaneous Endoscopic Approach, Diagnostic (ICD-10-PCS; principal; 2016-03-15 11:00)
PROC: 0WP8X0Z Removal of Drainage Device from Chest Wall, External Approach (ICD-10-PCS; 2016-03-19)
PROC: 0JQ00ZZ Repair Scalp Subcutaneous Tissue and Fascia, Open Approach (ICD-10-PCS; 2016-03-29)
DX: I31.3 Pericardial effusion (noninflammatory) (principal); I25.2 Old myocardial infarction; R09.02 Hypoxemia; R07.89 Other chest pain; C44.90 Unspecified malignant neoplasm of skin, unspecified; R80.9 Proteinuria, unspecified; R53.83 Other fatigue; I42.8 Other cardiomyopathies; I11.0 Hypertensive heart disease with heart failure; I50.21 Acute systolic (congestive) heart failure; B34.9 Viral infection, unspecified; J18.9 Pneumonia, unspecified organism; K80.80 Other cholelithiasis without obstruction; I48.0 Paroxysmal atrial fibrillation; M48.8X2 Other specified spondylopathies, cervical region; I31.4 Cardiac tamponade; F03.90 Unspecified dementia, unspecified severity, without behavioral disturbance, psychotic disturbance, mood disturbance, and anxiety; S01.01XD Laceration without foreign body of scalp, subsequent encounter; W10.8XXD Fall (on) (from) other stairs and steps, subsequent encounter; Y92.098 Other place in other non-institutional residence as the place of occurrence of the external cause; R21 Rash and other nonspecific skin eruption; J98.11 Atelectasis; E87.5 Hyperkalemia; L30.8 Other specified dermatitis; R62.7 Adult failure to thrive; I47.1 Supraventricular tachycardia; A41.89 Other specified sepsis; R65.20 Severe sepsis without septic shock; E87.2 Acidosis; I31.9 Disease of pericardium, unspecified; L27.2 Dermatitis due to ingested food; T78.1XXA Other adverse food reactions, not elsewhere classified, initial encounter; W06.XXXA Fall from bed, initial encounter; Y93.89 Activity, other specified; Y92.230 Patient room in hospital as the place of occurrence of the external cause
CPT/HCPCS: 36415; 36600; 70450-TC; 71010-TC; 71250-TC; 71275-TC; 72125-TC; 74000-TC; 74176-TC; 76705-TC; 80048; 80053; 80076; 81003; 81015; 82550; 82570; 82607; 82803; 83036; 83605; 83690; 83735; 83880; 84100; 84155; 84156; 84165; 84443; 84484; 85025; 85027; 85610; 85651; 85730; 86038; 86140; 86850; 86900; 86901; 87040; 87070; 87075; 87086; 87102; 87116; 87205; 87206; 87210; 87254; 87804; 88108; 88305-TC; 90670; 93005; 93010; 93306-TC; 94010; 94640; 94660; 94667; 94761; 97001-GP; 97116-GP; 99282-25; G0008; J1644; Q2037